=== PATIENT | male | born 1930 | race Caucasian/White ===

== ENCOUNTER 2016-09-19 23:40 | Inpatient (IN) | payer MEDICARE ==
[~2016-09-19] VITALS: Ht 182.9 cm; Wt 75.0 kg
[~2016-09-19 23:40] MED LIST: ALPR.25 PO; COLA100C3 PO; IMUR50TA PO; LUPR45IN IM; MEST60TA PO; vitamin b12 IM
[2016-09-19 23:45] VITALS: BP 171/78; PULSE 70; RESP 15; TEMP 98; O2SAT 96
[2016-09-20] VITALS (8 sets, daily range): BP systolic 107–169; BP diastolic 58–78; PULSE 62–95; RESP 15–20; TEMP 98.7; O2SAT 95–98
[2016-09-20] MEDS ORDERED: SODIUM CHLOR 0.9% 1000 ML INJ 1,000 ML IV SCH (00:09)
[2016-09-20] MEDS ORDERED: SODIUM CHLORIDE 0.9% FLUSH 5 ML FLUSH IVF PRN ×2 (00:15→11:45)
--- NOTE | 2016-09-20 00:18 | PD ---
HPI Chief Complaint: Neuro Symptoms/ Deficits Time Seen by Provider: 00:09 Travel History International Travel<30 days: No Contact w/Intl Traveler<30days: No Traveled to known affect area: No History of Present Illness HPI 85-year-old male history of myasthenia gravis arrives to the ER with 2 days of difficulty swallowing. He states this is typical for a myasthenia gravis type exacerbation. He reports strict compliance of all medications. He has had no recent illness. He reports undergoing plasmapheresis once within the last 12 months in twice within the year prior. Typically he states that effectively manages his disease. Complains of a right groin hernia which is chronic in nature. He offers no additional complaint. He follows with Dr. Doherty and Dr. Loyola. [facility] Past Medical History Anemia: Yes Arthritis: Yes Asthma: No Autoimmune Disease: Yes (MYASTHENIA GRAVIS) Blood Disorders: No Anxiety: No Depression: No Heart Rhythm Problems: No Cancer: Yes (COLON, PROSTATE AND LIVER) Cardiovascular Problems: No High Cholesterol: Yes Chemotherapy: Yes Chest Pain: No Congestive Heart Failure: No COPD: No Diabetes: No Diminished Hearing: Yes (BILATERAL HEARING AIDS) Endocrine: No Gastrointestinal Disorders: Yes (COLON/LIVER CA) Genitourinary: Yes (PROSTATE CA) Immune Disorder: Yes (MYASTHENIA GRAVIS) Kidney Stones: Yes (1983) Musculoskeletal: No Neurologic: No Psychiatric: No Reproductive: No Respiratory: No Radiation Therapy: Yes Sleep Apnea: No Thyroid Disease: No Past Surgical History Abdominal Surgery: Yes (COLON RESECTION DUE TO COLON CAN 1987 AND 2007) Eye Surgery: Yes (L EYE SURGERY on retina) Pacemaker: No Thoracic Surgery: Yes (LIVER RESECTION 2000) Tonsillectomy: Yes Other Surgery: Yes (HERNIA REPAIR JUN 2001) Social History Alcohol Use: No Tobacco Use: No Substance Use: No Allergies-Medications (Allergen,Severity, Reaction): Coded Allergies: Sulfa (Verified Allergy, Severe, Flushing, 09/20/16) Ativan (Verified Allergy, Intermediate, Psychosis, 09/20/16) Compazine (Verified Allergy, Unknown, JITTERY, 09/20/16) Reported Meds & Prescriptions Reported Meds & Active Scripts Active Xanax (Alprazolam) 0.25 Mg Tab 0.25 Mg PO DAILY PRN Reported Lupron Depot Inj Kit (Leuprolide (6 Month) Inj Kit) 45 Mg Kit 45 Mg IM DIRECTED [vitamin b12] 1,000 Mg IM DIRECTED Colace (Docusate Sodium) 100 Mg Cap 100 Mg PO BID Imuran (Azathioprine) 50 Mg Tab 25 Mg PO BID Hazardous agent: use appropriate precautions for handling and disposal. Mestinon (Pyridostigmine [place]) 60 Mg Tab 120 Mg PO TID Review of Systems Except as stated in HPI: all other systems reviewed are Neg Physical Exam Narrative GENERAL: 85-year-old male pleasant well-nourished developed SKIN: Warm and dry. HEAD: Atraumatic. Normocephalic. EYES: Pupils equal and round. No scleral icterus. No injection or drainage. ENT: No nasal bleeding or discharge. Mucous membranes pink and moist. NECK: Trachea midline. No JVD. CARDIOVASCULAR: Regular rate and rhythm. No murmur appreciated. RESPIRATORY: No accessory muscle use. Clear to auscultation. Breath sounds equal bilaterally. GASTROINTESTINAL: Abdomen soft, non-tender, nondistended. Hepatic and splenic margins not palpable. MUSCULOSKELETAL: No obvious deformities. No clubbing. No cyanosis. No edema. NEUROLOGICAL: Cranial nerves are symmetric. Speech is mildly dysarthric however comprehensible. Motor function normal 5 over 5 all 4 extremities. PSYCHIATRIC: Appropriate mood and affect; insight and judgment normal. Data Data Last Documented VS Vital Signs Date Time Temp Pulse Resp B/P Pulse Ox O2 Delivery O2 Flow Rate FiO2 09/20/16 00:53 62 16 137/66 95 Nasal Cannula 09/19/16 23:45 98.0 Orders Basic Metabolic Panel (Bmp) (09/20/16 00:09) Complete Blood Count With Diff (09/20/16 00:09) Urinalysis - C+S If Indicated (09/20/16 00:09) Iv Access Insert/Monitor (09/20/16 00:09) Ecg Monitoring (09/20/16 00:09) Oximetry (09/20/16 00:09) Sodium Chlor 0.9% 1000 Ml Inj (Ns 1000 M (09/20/16 00:09) Sodium Chloride 0.9% Flush (Ns Flush) (09/20/16 00:15) Admit Order (Ed Use Only) (09/20/16 01:22) Labs Laboratory Tests Test 09/20/16 00:00 White Blood Count 3.3 TH/MM3 Red Blood Count 3.93 MIL/MM3 Hemoglobin 11.1 GM/DL Hematocrit 33.4 % Mean Corpuscular Volume 85.0 FL Mean Corpuscular Hemoglobin 28.2 PG Mean Corpuscular Hemoglobin 33.2 % Concent Red Cell Distribution Width 15.7 % Platelet Count 131 TH/MM3 Mean Platelet Volume 8.4 FL Neutrophils (%) (Auto) 71.9 % Lymphocytes (%) (Auto) 12.3 % Monocytes (%) (Auto) 12.8 % Eosinophils (%) (Auto) 2.2 % Basophils (%) (Auto) 0.8 % Neutrophils # (Auto) 2.4 TH/MM3 Lymphocytes # (Auto) 0.4 TH/MM3 Monocytes # (Auto) 0.4 TH/MM3 Eosinophils # (Auto) 0.1 TH/MM3 Basophils # (Auto) 0.0 TH/MM3 CBC Comment DIFF FINAL Differential Comment Sodium Level 141 MEQ/L Potassium Level 3.8 MEQ/L Chloride Level 107 MEQ/L Carbon Dioxide Level 28.5 MEQ/L Anion Gap 6 MEQ/L Blood Urea Nitrogen 18 MG/DL Creatinine 1.07 MG/DL Estimat Glomerular Filtration 66 ML/MIN Rate Random Glucose 121 MG/DL Calcium Level 8.9 MG/DL MDM Medical Decision Making Medical Screen Exam Complete: Yes Emergency Medical Condition: Yes Medical Record Reviewed: Yes Differential Diagnosis Myasthenia gravis crisis, electrolyte imbalance, anemia Narrative Course CBC & BMP Diagram 09/20/16 00:00 Upon reassessment prior to admission the patient notes he had dental work done 2 weeks ago. He first noticed some difficulty with speech following the dental work then developed gradually increasing difficulty swallowing since. The patient will be admitted for management of myasthenia gravis. Case discussed with Dr. Walters. Airway protected. Vital signs normal. Diagnosis Primary Impression: Myasthenia gravis with exacerbation Admitting Information Admitting Physician Requests: Admit Ponce Young MD Sep 20, 2016 00:18
[2016-09-20 00:34] LABS: AUTOMATED NEUTROPHIL # 2.4 TH/MM3 (1.8-7.7); BASOPHIL % 0.8 % (0.0-2.0); EOSINOPHIL # 0.1 TH/MM3 (0-0.4); EOSINOPHIL % 2.2 % (0.0-4.0); HEMATOCRIT 33.4 % (39.0-51.0); HEMO FLAGS DIFF FINAL; LYMPH % 12.3 % (9.0-44.0); LYMPHOCYTE # 0.4 TH/MM3 (1.0-4.8); MEAN CORPUSCULAR HEMOGLOBIN 28.2 PG (27.0-34.0); MEAN CORPUSCULAR HGB CONC 33.2 % (32.0-36.0); MONO % 12.8 % (0.0-8.0); NEUT % 71.9 % (16.0-70.0); PLATELET COUNT 131 TH/MM3 (150-450); RED BLOOD COUNT 3.93 MIL/MM3 (4.50-5.90); RED CELL DISTRIBUTION WIDTH 15.7 % (11.6-17.2); WHITE BLOOD COUNT 3.3 TH/MM3 (4.0-11.0)
[2016-09-20 00:58] LABS: ANION GAP 6 MEQ/L (5-15); BICARBONATE 28.5 MEQ/L (21.0-32.0); BLOOD UREA NITROGEN 18 MG/DL (7-18); CHLORIDE 107 MEQ/L (98-107); GLOMERULAR FILTRATION RATE 66 ML/MIN (>89); POTASSIUM 3.8 MEQ/L (3.5-5.1); SODIUM (NA) 141 MEQ/L (136-145)
--- NOTE | 2016-09-20 02:05 | HHI.HP ---
[facility] Service Family Medicine Primary Care Physician Chris Doherty MD Admission Diagnosis Myasthenia Gravis Exacerbation Diagnoses: International Travel<30 Days: No Contact w/Intl Traveler<30days: No Known Affected Area: No History of Present Illness Mr. Peters is an 85 y/o M with a PMHx of myasthenia gravis, metastatic colon cancer, and metastatic prostate cancer presenting to the ED with swallowing difficulties. The patient states that approximately 2 weeks ago he had dental work performed on his upper teeth. Since that time he has had increasing difficulty when trying to speak. On Tuesday, he started to have difficulty swallowing his food and liquids. He then contacted his neurologist, Dr. Loyola , who recommended him go to the ER for further evaluation. The patient declined as he felt that he was "not that bad." However, over the weekend he started having more issues when trying to swallow and talk to the point where he would salivate on himself. He states that he has had similar episodes like this before where plasmapheresis resolved his clinical issues. He most recently under went plasmapheresis approximately 10 months ago (November 2015). His only other complaint is a mild, nonproductive cough he states that has been his baseline since being diagnosed with myasthenia gravis. Otherwise he has no complaints and denies any fevers, chill, SOB, chest pain, NVD, or calf tenderness. His PCP is Dr. Doherty of the [facility]. (Fabricio Siegel MD R1) Review of Systems Constitutional: DENIES: Fever Endocrine: DENIES: Polyuria Eyes: DENIES: Blurred vision, Double Vision Ears, nose, mouth, throat: DENIES: Vertigo Respiratory: COMPLAINS OF: Cough (Mild, nonproductive cough at his baseline), DENIES: Shortness of breath Cardiovascular: DENIES: Chest pain Gastrointestinal: DENIES: Abdominal pain, Diarrhea, Nausea, Vomiting Genitourinary: DENIES: Dysuria Musculoskeletal: DENIES: Muscle aches Integumentary: DENIES: Rash Hematologic/lymphatic: DENIES: Lymphadenopathy Immunologic/allergic: DENIES: Urticaria Neurologic: DENIES: Headache Psychiatric: DENIES: Mood changes (Fabricio Siegel MD R1) Past Family Social History Past Medical History Myasthenia Gravis metastatic colon cancer - (initial partial colectomy 1987 with met to liver 2000 with subsequent surgical resection), second primary colon cancer found 2007 and resected BPH - now s/p TURP Incisional hernia Hyperlipidemia 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 Garcia Neurology: Dr. Thompson (Fabricio Siegel MD R1) Physical Exam Vital Signs Vital Signs Date Time Temp Pulse Resp B/P Pulse Ox O2 Delivery O2 Flow Rate FiO2 09/20/16 00:53 62 16 137/66 95 Nasal Cannula 09/19/16 23:45 75 15 96 Room Air 09/19/16 23:45 15 96 Room Air 09/19/16 23:45 98.0 70 15 171/78 96 Physical Exam GEN: Well nourished 85 y/o M lying in bed in no acute distress HEENT: Atraumatic, normocephalic. Conjunctiva WNL without injection or icterus.PERRLA with EOMI. Oropharynx clear with no exudate or erythema.Poor mcc with multiple missing teeth. MMM. Mild saliva pooling in posterior oropharynx. No rhinorrhea. BL hearing aids in place. LUNGS: CTAB with no CRW. No increased WOB. CARDIO: RR with 1-2/6 late systolic murmur at apex. ABD: Soft, non-tender, non-distended with +BS in all 4 quarters. Multiple healed surgical scars from prior ABD surgeries. Moderate R ventral hernia. HEME/LYMPH: No ecchymosis, petechia or significant adenopathy appreciated. MUSC: Moves all extremities without difficulty. No calf pain or swelling. 2+ pulses in all 4 extremities. NEURO: AAO x3. CN II-XII intact. No ocular weakness or ptosis apparent. Speech is slowed and dysarthric, but comprehendible. Strength 4+/5 with ROM WNL. Extremities neurovascularly intact. Laboratory Laboratory Tests Test 09/20/16 00:00 White Blood Count 3.3 Red Blood Count 3.93 Hemoglobin 11.1 Hematocrit 33.4 Mean Corpuscular Volume 85.0 Mean Corpuscular Hemoglobin 28.2 Mean Corpuscular Hemoglobin 33.2 Concent Red Cell Distribution Width 15.7 Platelet Count 131 Mean Platelet Volume 8.4 Neutrophils (%) (Auto) 71.9 Lymphocytes (%) (Auto) 12.3 Monocytes (%) (Auto) 12.8 Eosinophils (%) (Auto) 2.2 Basophils (%) (Auto) 0.8 Neutrophils # (Auto) 2.4 Lymphocytes # (Auto) 0.4 Monocytes # (Auto) 0.4 Eosinophils # (Auto) 0.1 Basophils # (Auto) 0.0 CBC Comment DIFF FINAL Differential Comment Sodium Level 141 Potassium Level 3.8 Chloride Level 107 Carbon Dioxide Level 28.5 Anion Gap 6 Blood Urea Nitrogen 18 Creatinine 1.07 Estimat Glomerular Filtration 66 Rate Random Glucose 121 Calcium Level 8.9 (Fabricio Siegel MD R1) Result Diagram: 09/20/16 0000 09/20/16 0000 Assessment and Plan Assessment and Plan Mr. Peters is an 85 y/o M with a PMHx of myasthenia gravis, metastatic colon cancer, and metastatic prostate cancer presenting with dysarthria and dysphagia secondary to his MG. Code Status FULL Discussed Condition With Dr. Young, ER Physician Dr. Walters (Fabricio Siegel MD R1) Attending Attestation PATIENT WAS SEEN AND EXAMINED. HIS HISTORY OF MYATHENIA GRAVIS DATES BACK APPROXIMATELY 2 YEARS. HE HAS EXPERIENCED EXACERBATIONS IN THE PAST WHCIH HAVE RESPONDED TO PLASMA PHORESIS. PATIENT DATES THE ONSET OF WORSENING WITH THIS EPISODE TO A PROTRACTED DENTAL PROCEDURE UNDER LOCAL ANESTHESIA. HE ALSO HAS A H/O RECURRENT EPISODES OF PARTIAL SMALL BOWEL OBSTRUCTIONS; CURRENTLY NO SIGNIFICANT GI SYMPTOMS ARE PRESENT. THIS CASE WAS DISCUSSED WITH THE RESIDENT PHYSICIANS. I HAVE REVIEWED THE RECORD AND AGREE WITH THE ABOVE NOTE AND PLAN OF CARE WAS DISCUSSED. I HAVE AUTHORIZED THE ORDER FOR ADMISSION TO AN IN- PATIENT STATUS. (Chris Doherty MD) Problem List: (1) Myasthenia gravis with acute exacerbation Status: Acute Plan: Patient with myasthenia gravis presenting with an acute exacerbation with presenting symptoms of dysarthria of 2 weeks and dysphagia of 3 days. Current regimen includes pyridostigmine and azathioprine. Chest x-ray for possible aspiration: No acute disease or change has occurred. CBC: WBC 3.3, H/H 11.1/33.4, platelets 131 (myelosuppression likely related to azathioprine use) BMP: Unremarkable UA: Unremarkable Continue pyridostigmine 120 mg by mouth 3 times a day Continue azathioprine 50 mg twice a day Consult neurology (Patient known to Dr. Loyola) PT/OT/ST consult; patient to be NPO until swallow evaluation by speech therapy Case management consult Nursing order to complete neurochecks every 4 hours with oropharyngeal suction as needed (2) Dysphagia Status: Acute Plan: Patient presenting with dysphagia due to acute exacerbation of myasthenia gravis NPO until swallow evaluation by speech therapy; will then place patient on heart healthy diet Please see plan as above (3) Dysarthria Status: Acute Plan: Patient presenting with dysarthria due to acute exacerbation of myasthenia gravis Please see plan as above (4) Constipation Status: Acute Plan: Patient with history of constipation and multiple small bowel obstructions. History of multiple GI surgeries. Continue Colace 100 mg by mouth twice a day Milk of magnesium 30 mL twice a day when necessary for constipation Folate and B12 pending (malabsorption secondary to prior colectomies - currently on monthly B12 shots) (5) Hernia, incisional Status: Chronic Plan: Patient with chronic incisional hernia to the right abdominal wall. Prior CT showing fat and bowel and reducible hernia. Continue to monitor, consider referral for possible repair if clinically indicated as an outpatient (6) Anxiety Status: Chronic Plan: Patient with history of anxiety Hold Xanax Continue to monitor (7) Nutrition, metabolism, and development symptoms Status: Acute Plan: Diet: NPO until swallow evaluation by speech therapy; will then place patient on heart healthy diet Fluids: NS at 60 ml/hr (1/2 MF) due to NPO status Electrolytes: Unremarkable, monitor with daily lab DVT prophylaxis: Heparin 5000 units twice a day, [place]/SCDs (Fabricio Siegel MD R1) Physician Certification 2 Midnight Certification Type: Admission for Inpatient Services Order for Inpatient Services The services are ordered in accordance with Medicare regulations or non- Medicare payer requirements, as applicable. In the case of services not specified as inpatient-only, they are appropriately provided as inpatient services in accordance with the 2-midnight benchmark. Estimated LOS (days): 3 3 days is the estimated time the patient will need to remain in the hospital, assuming treatment plan goals are met and no additional complications. Post-Hospital Plan: Home (Fabricio Siegel MD R1) Fabricio Siegel MD R1 Sep 20, 2016 02:05 Chris Doherty MD Sep 21, 2016 06:23
[2016-09-20] MEDS ORDERED: VITAMIN B12 1000 MG IM SCH (02:15)
[2016-09-20 02:45] LABS: BLOOD, URINE NEG (NEG); COMMENT (UR) CULT NOT INDICATED; CULTURE IF INDICATED CULT NOT INDICATED; GLUCOSE,URINE NEG (NEG); KETONE, URINE 10 mg/dL (NEG); MUCUS URINE FEW /lpf (OCC); NITRITE,URINE NEG (NEG); PH, URINE 6.5 (5.0-8.5); RENAL EPITHELIAL CELLS <1 /hpf; URINE COLOR YELLOW (YELLW/STRAW)
[2016-09-20] MEDS ORDERED: MAGNESIUM HYDROXIDE SUSP 30 ML CUP PO PRN (02:45)
[2016-09-20] MEDS ORDERED: NALOXONE HCL 0.4 MG/ML AMP IV PRN (02:45)
[2016-09-20] MEDS ORDERED: SODIUM CHLORIDE 0.9% FLUSH 5 ML FLUSH FLUSH PRN (02:45)
[2016-09-20] MEDS: HEPARIN SODIUM - SQ 10,000 UNITS/ML VIAL SQ SCH ×2 (03:38→15:20)
--- NOTE | 2016-09-20 04:31 | RADRPT ---
EXAM DATE/TIME: 09/20/2016 03:04 [facility] COMPARISON: CHEST SINGLE AP, January 13, 2015, 13:00. INDICATIONS : Shortness of breath. MEDICAL HISTORY : Carcinoma, colon. Carcinoma, prostatic. Liver cancer SURGICAL HISTORY : Colon resection. Hernia repair ENCOUNTER: Initial ACUITY: 1 day PAIN SCORE: 0/10 LOCATION: Bilateral chest FINDINGS: A single view of the chest demonstrates the lungs to be symmetrically aerated without evidence of mas s, infiltrate or effusion. The cardiomediastinal contours are unremarkable. Osseous structures are intact. CONCLUSION: No acute disease. No significant change has occurred. Reece Peters MD on September 20, 2016 at 4:30 Board Certified Radiologist. This report was verified electronically.
[2016-09-20] MEDS: SODIUM CHLOR 0.9% 1000 ML INJ 1,000 ML IV SCH ×2 (04:45→22:52)
[2016-09-20] MEDS ORDERED: PYRIDOSTIGMINE BROMIDE 60 MG TAB PO SCH (09:00)
--- NOTE | 2016-09-20 10:26 | MB ---
cc: MICHELLE HASSAN DATE OF CONSULTATION: 09/20/2016 HISTORY OF PRESENT ILLNESS A 85-year-old man with a history of myasthenia gravis, first seen in July 2014 with difficulty swallowing, he is antibody positive for myasthenia gravis, put on Mestinon and it seemed to help quite a bit, went home and then re-admitted on 10/11/2014, known history of colon cancer in 1999 and 2007 with mets to the liver, they had taken half his liver out. He came back June of 2014, he had difficulty swallowing, seemed to get worse and over a week prior to September 2014 it got worse even though he was on Mestinon two pills three times a day, a little bit of cough, he was put on steroids, two days prior, received plasma exchange. He felt better after the plasma exchange, continued to have great improvement, voice was quite strong. He did not get his fifth plasma exchange. He went home on Mestinon, 60 of prednisone but over the past 2 weeks his speech and swallowing had slowly gotten worse despite being on the medication. He subsequently came into the ER, had plasma exchange again. I have maintained him on Mestinon at home and he had been doing well but still has some low grade difficulty swallowing and speech sometimes not great but he has been living with it and getting along fine and then he had some work done on his teeth about a week ago and since that time his swallowing has gotten a bit worse and then he was having some difficulty handling secretions and came in. PAST MEDICAL HISTORY 1. The above cancers. 2. History of prostate cancer with 2012 mets to the T-spine. 3. Question of impaired fasting glucose in the past. REVIEW OF SYSTEMS No hypertension, diabetes, CO, CABG, cardiac arrhythmia, renal, pulmonary, thyroid, lupus, ulcer, seizure or stroke. SOCIAL HISTORY Nonsmoker, nondrinker, lives with his at [facility]. ALLERGIES COMPAZINE, ATIVAN, SULFA. MEDICATION 1. Xanax 0.25 p.r.n. 2. Lupron injection. 3. B12 injection. 4. Colace. 5. Imuran 25 mg b.i.d. 6. Mestinon 120 t.i.d. PHYSICAL EXAMINATION VITAL SIGNS: Afebrile, 62, 15, 169/76 to 117/75. NECK: There were no carotid bruits. HEART: Heart was regular rhythm. I do not detect a murmur. LUNGS: Lungs were clear. NEURO EXAM: Pupils are equal. Visual renner are full. Extraocular movements intact without nystagmus. Face moves symmetrically but he has some weakness on eye closure and buccal muscles. Tongue was midline. There is no drift. He had normal strength in upper and lower extremities bilaterally including repetitive testing. DTRs are trace throughout. Toes are downgoing bilaterally. Pinprick is intact throughout. Speech is a little bit hoarse, slightly thick, not out of the realm for his normal. LABORATORY DATA His white count is 3.3, hematocrit 11, platelet count 131. RPR is negative. His last in June 2016, voltage-gated calcium channel antibody was negative. His anti__ muscle titer was 1:40. His acetylcholine receptor binding antibody was 25 which is as high as it has been since being checked and it was around anywhere from 2-13 in the past. RPR has been negative. UA on this admission is negative. Basic metabolic profile is normal. B12 is normal. Folate is normal. Sed rate in the past has been normal. IMAGING STUDIES Chest x-ray on this admission is normal. Abdominal CT done in July of last year had a small bowel obstruction, partial, small right pleural effusion. He had a chest CT in 2013 and negative for a thymoma and a CAT scan of his brain back then also showed some white matter changes bilaterally. IMPRESSION Worsening of his myasthenia since his recent dental surgery but he has never done all that great with his current medication regimen. I have had to limit his Imuran due to dropping white count in the past. What I have recommended is to restart his plasma exchange and restart him on some steroids and see how he does on that. The last time we tried him on some oral steroids, we thought he got a little bit worse initially, so we backed off on it. So after his first plasma exchange and if he starts to feel better, we will start the steroids then. MD DONNA Morrow/SAMI /7:57 AM /9:47 AM
[2016-09-20] MEDS: azaTHIOprine 50 MG TAB PO SCH ×2 (11:44→22:53)
[2016-09-20] MEDS: DOCUSATE SODIUM 100 MG CAP PO SCH ×2 (11:44→21:00)
[2016-09-20] MEDS: SODIUM CHLORIDE 0.9% FLUSH 5 ML FLUSH FLUSH SCH ×2 (11:45→22:54)
[2016-09-20] MEDS ORDERED: HEPARIN SODIUM - IV 10,000 UNITS/10 ML VIAL IVF PRN (11:45)
--- NOTE | 2016-09-20 11:45 | PD.RAD ---
Post Procedure Progress Note Pre Procedure Diagnosis: (1) Myasthenia gravis with exacerbation Post Procedure Diagnosis: (1) Myasthenia gravis with exacerbation Procedure Date: Sep 20, 2016 Supervising Radiologist: Agustin Guajardo JR Proceduralist/Assist: Qian Fernández, RT(R)(CV), Xiao Oliveira RT(R) Anesthesia: Local Plan of Activity Patient to Unit: Nursing Unit Patient Condition: Good See PACS Report for procedural detail/treatment Central Venous Access Device Procedure 1 Right Internal Jugular Hemodialysis Catheter Non-Tunneled Placement dual lumen Mongolian: 15 Findings: Catheter in good position and functions well. OK to use. Jr. Bennett,Agustin See MD Sep 20, 2016 11:45
--- NOTE | 2016-09-20 12:43 | RADRPT ---
EXAM DATE/TIME: 09/20/2016 10:48 [facility] COMPARISON: No previous studies available for comparison. INDICATIONS : History of Myasthenia gravis. Need for vascular access for plasmapheresis. MEDICAL HISTORY : 1. Myasthenia gravis 2. metastatic colon ca 3. BPH 4. Hyperlipidemia 5.Prostate cancer SURGICAL HISTORY : 1. Partial colectomy 2. Partail liver resection 3. TURP 4. Retinal surgery 5. carpal tunnel x2 ENCOUNTER: Initial ACUITY: 2 weeks PAIN SCORE: FLUORO TIME: 0.4 minutes ACCESS: Right internal jugular vein DEVICE(S): 1.) 14 Spanish dual lumen 15 cm Schon catheter PROCEDURE : 1. Ultrasound guided venipuncture. 2. Fluoroscopic guidance. 3. Central line placement. The risks, benefits and alternatives to the procedure were explained and verbal and written consent w as obtained. The site was prepped in sterile fashion. Full sterile technique was used, including ca p, mask, sterile gloves and gown and a large sterile sheet. Hand hygiene and 2% chlorhexidine prep w as utilized per protocol for cutaneous antisepsis with appropriate dry time for site. The skin and subcutaneous tissues were infiltrated with local anesthetic solution. A suitable site a marvel the vein was selected with ultrasound and fluoroscopic guidance. A small incision was made. Th e vein was accessed under direct ultrasound visualization using the micropuncture technique. The sin ropuncture set was exchanged for a 0.035 wire. The tract was dilated. The catheter was advanced int o position under direct fluoroscopic visualization. The catheter was fixed in place with suture and a sterile dressing was applied. The patient tolerated the procedure well and there were no complications. CONCLUSION: Uncomplicated line placement as above. Catheter functions well and is ready for use. Agustin Guajardo Jr., MD on September 20, 2016 at 12:41 Board Certified Radiologist. This report was verified electronically.
[2016-09-20 12:53] LABS: AUTOMATED NEUTROPHIL # 1.9 TH/MM3 (1.8-7.7); EOSINOPHIL # 0.1 TH/MM3 (0-0.4); EOSINOPHIL % 2.1 % (0.0-4.0); HEMATOCRIT 37.6 % (39.0-51.0); HEMO FLAGS DIFF FINAL; LYMPH % 10.5 % (9.0-44.0); LYMPHOCYTE # 0.3 TH/MM3 (1.0-4.8); MEAN CELL VOLUME 86.1 FL (80.0-100.0); MEAN CORPUSCULAR HEMOGLOBIN 27.2 PG (27.0-34.0); MEAN CORPUSCULAR HGB CONC 31.5 % (32.0-36.0); MONO % 11.8 % (0.0-8.0); NEUT % 74.6 % (16.0-70.0); PLATELET COUNT 125 TH/MM3 (150-450); RED BLOOD COUNT 4.37 MIL/MM3 (4.50-5.90); RED CELL DISTRIBUTION WIDTH 15.6 % (11.6-17.2); WHITE BLOOD COUNT 2.5 TH/MM3 (4.0-11.0)
[2016-09-20 13:08] LABS: BICARBONATE 28.8 MEQ/L (21.0-32.0); POTASSIUM 3.9 MEQ/L (3.5-5.1)
[2016-09-20 13:12] LABS: ALT (GPT) 19 U/L (12-78); AST (GOT) 18 U/L (15-37); CREATINE KINASE 112 U/L (39-308)
--- NOTE | 2016-09-20 17:07 | EKG ---
Date Performed: 09/19/2016 Time Performed: 23:57:22 PTAGE: 85 years EKG: Sinus rhythm WITH OCCASIONAL VENTRICULAR PREMATURE COMPLEXES RIGHT BUNDLE BRANCH BLOCK POSSIBLE SEPTAL MYOCARDIAL INFARCTION Compared to prior tracing no significant change ABNORMAL ECG PREVIOUS TRACING 12/15/15 @ 23.55.18 DOCTOR: Brennan August Interpretating Date/Time 09/20/2016 17:05:03
[2016-09-20] MEDS: PYRIDOSTIGMINE BROMIDE 60 MG TAB PO SCH (18:31)
[2016-09-21] VITALS (11 sets, daily range): BP systolic 152–188; BP diastolic 67–80; PULSE 59–66; RESP 16–20; TEMP 96–97.8; O2SAT 96–98
[2016-09-21] MEDS ORDERED: ALBUMIN HUMAN 5% 25 GM/500 ML BOTTLE IV ONE ×2 (02:30→15:00)
[2016-09-21] MEDS: HEPARIN SODIUM - SQ 10,000 UNITS/ML VIAL SQ SCH (02:45)
[2016-09-21] MEDS ORDERED: CALCIUM GLUCONATE INJ 4 GM in SODIUM CHLOR 0.9% 250 ML INJ 200 ML IV ONE (03:00)
--- NOTE | 2016-09-21 07:45 | HHI.PR ---
Subjective Remarks inc swallow problems Objective Vital Signs Date Time Temp Pulse Resp B/P Pulse Ox O2 Delivery O2 Flow Rate FiO2 09/21/16 04:00 97.6 59 18 158/79 96 09/21/16 02:00 60 09/21/16 00:00 97.8 62 16 152/68 97 09/20/16 20:00 Room Air 09/20/16 20:00 98.7 82 18 107/58 95 09/20/16 18:17 76 20 167/78 09/20/16 13:35 97 21 09/20/16 12:20 75 20 162/69 I/O 09/20/16 09/20/16 09/20/16 09/21/16 09/21/16 09/21/16 07:00 15:00 23:00 07:00 15:00 23:00 Intake Total 437 ml Output Total 100 ml 200 ml Balance -100 ml 237 ml Intake IV Total 437 ml Output Urine Total 100 ml 200 ml Result Diagram: 09/20/16 1215 09/20/16 1215 Objective Remarks voice thicker and eye closure weaker jeff r eye buccal same delt nl as is neck flexors nl Assessment and Plan Assessment and Plan imp mg needs pex today line in watch bulbar fxt no sob and not sx below neck today but a little worse change diet have swallow reeval this am Mickey Loyola MD Sep 21, 2016 07:45
[2016-09-21 08:28] LABS: AUTOMATED NEUTROPHIL # 1.8 TH/MM3 (1.8-7.7); BASOPHIL % 0.7 % (0.0-2.0); EOSINOPHIL # 0.1 TH/MM3 (0-0.4); HEMATOCRIT 35.6 % (39.0-51.0); HEMO FLAGS DIFF FINAL; LYMPH % 10.5 % (9.0-44.0); LYMPHOCYTE # 0.3 TH/MM3 (1.0-4.8); MEAN CELL VOLUME 84.3 FL (80.0-100.0); MEAN CORPUSCULAR HEMOGLOBIN 27.2 PG (27.0-34.0); MEAN CORPUSCULAR HGB CONC 32.2 % (32.0-36.0); MONO % 14.1 % (0.0-8.0); NEUT % 71.7 % (16.0-70.0); PLATELET COUNT 108 TH/MM3 (150-450); RED BLOOD COUNT 4.23 MIL/MM3 (4.50-5.90); RED CELL DISTRIBUTION WIDTH 15.6 % (11.6-17.2); WHITE BLOOD COUNT 2.5 TH/MM3 (4.0-11.0)
[2016-09-21] MEDS: azaTHIOprine 50 MG TAB PO SCH ×2 (08:52→21:09)
[2016-09-21] MEDS: PYRIDOSTIGMINE BROMIDE 60 MG TAB PO SCH ×3 (08:52→17:41)
[2016-09-21] MEDS: SODIUM CHLORIDE 0.9% FLUSH 5 ML FLUSH FLUSH SCH ×2 (08:53→21:08)
[2016-09-21] MEDS: DOCUSATE SODIUM 100 MG CAP PO SCH ×2 (08:53→21:08)
[2016-09-21 09:01] LABS: ALKALINE PHOSPHATASE 75 U/L (45-117); ALT (GPT) 18 U/L (12-78); ANION GAP 6 MEQ/L (5-15); AST (GOT) 18 U/L (15-37); BICARBONATE 29.9 MEQ/L (21.0-32.0); BLOOD UREA NITROGEN 15 MG/DL (7-18); CHLORIDE 106 MEQ/L (98-107); GLOMERULAR FILTRATION RATE 77 ML/MIN (>89); POTASSIUM 3.8 MEQ/L (3.5-5.1); SODIUM (NA) 142 MEQ/L (136-145); TOTAL BILIRUBIN ADULT 1.6 MG/DL (0.2-1.0)
--- NOTE | 2016-09-21 09:41 | MB ---
cc: RACHEL WU M.D. DATE OF CONSULTATION 09/20/2016 REASON FOR CONSULTATION Consult requested by Dr. Loyola for plasmapheresis in a patient who is admitted with exacerbation of myasthenia gravis. HISTORY OF PRESENT ILLNESS Naren is a pleasant 85-year-old male. He is well-known to me. He has a history of prostate cancer, colon cancer and myasthenia gravis. The patient had a fall two years ago and had injury to his teeth. He recently went to see a dentist to fix his teeth. Subsequently the patient was found to have trouble speaking. He saw Dr. Carpenter, his neurologist. His myasthenia gravis medications were adjusted but it did not improve. Subsequently the patient had developed difficulty swallowing and the patient now has been admitted to the hospital. The patient previously had responded to the plasmapheresis for his myasthenia gravis. Dr. Loyola is requesting for the plasma exchange again. The patient had a Vascath placed in by interventional radiologist. The patient clearly has trouble swallowing and he has difficulty in his speech. He does not have any weakness of his lower legs. PAST MEDICAL HISTORY 1. Myasthenia gravis diagnosed in to 2013. 2. Prostate cancer diagnosed in June 2011 and he now on intermittent hormonal treatment. 3. He also has a history of colon cancer which dates back to 1987. 4. Anxiety disorder. 5. Arthritis. 6. Hypercholesterolemia. 7. Kidney stones. PAST SURGICAL HISTORY 1. Carpal tunnel surgery. 2. Cataract. 3. Colon resection. 4. Skin cancer excision. 5. Colonoscopy. 6. Liver resection 7. Incisional hernia repair. 8. Inguinal hernia repair ALLERGIES COMPAZINE. SULFA. MEDICATIONS Please see EMR. FAMILY HISTORY Noncontributory. SOCIAL HISTORY The patient does not smoke cigarettes, does not drink alcohol. PHYSICAL EXAMINATION General: This is a well-developed, well-nourished white male in no apparent distress. Vital Signs: Temperature 98.7, heart is 82, blood pressure 107/58. HEENT: PERRLA, EOMI. Anicteric. No oral lesions are noted. Neck: Supple. Lymhphatics: There is no cervical, supraclavicular or axillary lymphadenopathy noted. Lungs: Clear. No wheezing, rhonchi or rales. Heart: Regular rate and rhythm. Abdomen: Soft, nontender. No hepatosplenomegaly. EXTREMITIES: No pedal edema. NEUROLOGY: The patient is awake, alert, oriented. He has slurring of speech and difficulty swallowing. SKIN: No significant lesions noted. ASSESSMENT 1. Exacerbation of myasthenia gravis. 2. Prostate cancer on intermittent hormonal treatment. 3. History of colon cancer status post surgery and chemotherapy with no evidence of recurrence. PLAN I have reviewed his available records and I have discussed with the patient regarding the plasmapheresis which he is very familiar with that. The patient has had plasmapheresis on multiple occasions for the exacerbation of myasthenia gravis and it has worked every time. His neurologist, Dr. Loyola, is recommending plasma exchange. VasCath has been placed in by interventional radiologist today. I have discussed with the patient's nurse to notify one blood bank to arrange the plasma exchange starting tomorrow. This will be done one every other day, a total of five treatments. We will monitor the CBC and coags with the plasmapheresis. The patient's CBC today showed a white count of 2.5, hemoglobin 11.9, hematocrit 37.6, platelet count is 125. His blood counts are adequate to start the plasmapheresis tomorrow. We will replace the plasma with the albumin 5%. We will do one plasma volume exchange. Further recommendations based on his hospital stay. Thank you for asking my opinion. MD BRIAN Kulkarni/MAYTE /10:11 PM /9:29 AM IBAN
--- NOTE | 2016-09-21 09:44 | PD.ONC.PN ---
Subjective Subjective Remarks Afebrile overnight. Patient resting comfortably. Earlier this AM he choked on his food and a swallow evaluation has been ordered. He is having trouble swallowing and talking. He is concerned that it may have been triggered by recent dental work he had done. Objective Data Date Time Temp Pulse Resp B/P Pulse Ox O2 Delivery O2 Flow Rate FiO2 09/21/16 09:09 152/68 09/21/16 07:10 96.0 65 18 165/76 98 09/21/16 04:00 97.6 59 18 158/79 96 09/21/16 02:00 60 09/21/16 00:00 97.8 62 16 152/68 97 09/20/16 20:00 Room Air 09/20/16 20:00 98.7 82 18 107/58 95 09/20/16 18:17 76 20 167/78 09/20/16 13:35 97 21 09/20/16 12:20 75 20 162/69 09/21/16 09/21/16 09/21/16 07:00 15:00 23:00 Intake Total 437 ml Output Total 200 ml 100 ml Balance 237 ml -100 ml Result Diagram: 09/21/16 0738 09/21/1638 Laboratory Results Laboratory Tests Test 09/20/16 09/21/16 12:15 07:38 White Blood Count 2.5 TH/MM3 2.5 TH/MM3 Red Blood Count 4.37 MIL/MM3 4.23 MIL/MM3 Hemoglobin 11.9 GM/DL 11.5 GM/DL Hematocrit 37.6 % 35.6 % Mean Corpuscular Volume 86.1 FL 84.3 FL Mean Corpuscular Hemoglobin 27.2 PG 27.2 PG Mean Corpuscular Hemoglobin 31.5 % 32.2 % Concent Red Cell Distribution Width 15.6 % 15.6 % Platelet Count 125 TH/MM3 108 TH/MM3 Mean Platelet Volume 8.2 FL 8.4 FL Neutrophils (%) (Auto) 74.6 % 71.7 % Lymphocytes (%) (Auto) 10.5 % 10.5 % Monocytes (%) (Auto) 11.8 % 14.1 % Eosinophils (%) (Auto) 2.1 % 3.0 % Basophils (%) (Auto) 1.0 % 0.7 % Neutrophils # (Auto) 1.9 TH/MM3 1.8 TH/MM3 Lymphocytes # (Auto) 0.3 TH/MM3 0.3 TH/MM3 Monocytes # (Auto) 0.3 TH/MM3 0.4 TH/MM3 Eosinophils # (Auto) 0.1 TH/MM3 0.1 TH/MM3 Basophils # (Auto) 0.0 TH/MM3 0.0 TH/MM3 CBC Comment DIFF FINAL DIFF FINAL Differential Comment Sodium Level 142 MEQ/L 142 MEQ/L Potassium Level 3.9 MEQ/L 3.8 MEQ/L Chloride Level 104 MEQ/L 106 MEQ/L Carbon Dioxide Level 28.8 MEQ/L 29.9 MEQ/L Anion Gap 9 MEQ/L 6 MEQ/L Blood Urea Nitrogen 14 MG/DL 15 MG/DL Creatinine 0.99 MG/DL 0.93 MG/DL Estimat Glomerular Filtration 72 ML/MIN 77 ML/MIN Rate Random Glucose 114 MG/DL 103 MG/DL Calcium Level 8.9 MG/DL 8.8 MG/DL Aspartate Amino Transf 18 U/L 18 U/L (AST/SGOT) Alanine Aminotransferase 19 U/L 18 U/L (ALT/SGPT) Total Creatine Kinase 112 U/L Total Bilirubin 1.6 MG/DL Alkaline Phosphatase 75 U/L Total Protein 6.6 GM/DL Albumin 3.6 GM/DL Administered Medications Medications (Trade) Dose Ordered Sig/Brock Route PRN Reason Start Time Stop Time Status Last Admin Dose Admin Azathioprine (Imuran) 25 mg BID PO 09/20/16 09:00 09/21/16 08:52 Docusate Sodium (Colace) 100 mg BID PO 09/20/16 09:00 09/21/16 08:53 IV Flush (NS Flush) 2 ml BID FLUSH 09/20/16 09:00 09/21/16 08:53 Heparin Sodium (Porcine) 5000 units 5,000 units Q12H SQ 09/20/16 02:45 09/20/16 15:20 Sodium Chloride (NS 1000 ml Inj) 1,000 ml @ 60 mls/hr [id number] IV 09/20/16 04:45 09/20/16 22:52 Pyridostigmine [place] (Mestinon) 120 mg TID PO 09/20/16 18:00 09/21/16 08:52 Objective Remarks GENERAL: Elderly male, sitting up in bed in nad SKIN: Warm and dry. HEAD: Normocephalic. EYES: No scleral icterus. No injection or drainage. NECK: Supple, trachea midline. CARDIOVASCULAR: Regular rate and rhythm without murmurs. RESPIRATORY: Breath sounds equal bilaterally. No accessory muscle use. GASTROINTESTINAL: Abdomen soft, non-tender, nondistended. EXTREMITIES: No cyanosis, or edema. MUSCULOSKELETAL: Adequate muscle tone. NEUROLOGICAL: awake, alert and oriented. able to move extremities. garbled speech. difficulty swallowing but no drooling Assessment/Plan Problem List: (1) Myasthenia gravis with exacerbation Plan: 09/21/16: proceed with day 1 of PEX. monitor CBC, coags, calcium --heparin prophylaxis placed on hold as pex can cause coagulopathy --pex qod x 5 Assessment 85y/o male with myasthenia gravis admitted with exacerbation. Hematology consulted to coordinate plasma exchange qod x 5. Attending Statement no new c/o ist pheresis today will follow The exam, history, and the medical decision-making described in the above note were completed with the assistance of the mid-level provider. I reviewed and agree with the findings presented. I attest that I had a [id number] encounter with the patient on the same day, and personally performed and documented my assessment and findings in the medical record. Elly Grimaldo Sep 21, 2016 09:44 Gabriel Garcia MD Sep 21, 2016 22:13
--- NOTE | 2016-09-21 10:10 | HHI.FPPN ---
Subjective Remarks Overnight, SERG. Afebrile. Mildly hypertensive to 150/70. Breathing well on room air. Poor UOP per EMR- continue to monitor. No melendrez at present. C/o difficulty swallowing and copious saliva production. Continuing to use suction. Per speech, soft foods with thin liquids- however, trouble swallowing scrambled eggs earlier this morning- had trouble breathing for a moment, coughed them back up. Is afraid to eat. Denies PIERCE, blurry vision, CP, SOB. Objective Vitals Vital Signs Date Time Temp Pulse Resp B/P Pulse Ox O2 Delivery O2 Flow Rate FiO2 09/21/16 09:09 152/68 09/21/16 07:10 96.0 65 18 165/76 98 09/21/16 04:00 97.6 59 18 158/79 96 09/21/16 02:00 60 09/21/16 00:00 97.8 62 16 152/68 97 09/20/16 20:00 Room Air 09/20/16 20:00 98.7 82 18 107/58 95 09/20/16 18:17 76 20 167/78 09/20/16 13:35 97 21 09/20/16 12:20 75 20 162/69 I/O 09/20/16 09/20/16 09/20/16 09/21/16 09/21/16 09/21/16 07:00 15:00 23:00 07:00 15:00 23:00 Intake Total 437 ml Output Total 100 ml 200 ml 100 ml Balance -100 ml 237 ml -100 ml Intake IV Total 437 ml Output Urine Total 100 ml 200 ml 100 ml Result Diagram: 09/21/16 0738 09/21/16 0738 Imaging Last Impressions Chest X-Ray 09/20/16 0239 Signed Impressions: Service Date/Time: Tuesday, September 20, 2016 03:04 - CONCLUSION: No acute disease. No significant change has occurred. Reece Peters MD Catheter Placement X-Ray 09/20/16 0000 Signed Impressions: Service Date/Time: Tuesday, September 20, 2016 10:48 - CONCLUSION: Uncomplicated line placement as above. Catheter functions well and is ready for use. Agustin Guajardo Jr., MD Objective Remarks CONST: 85y male in moderate distress secondary to copious swallowing. Suctioning frequently, coughing/gagging repeatedly. HEENNT: PERRL. Saccadic eye movements. Poor intermediate with multiple missing teeth. Mild saliva pooling in oropharynx. RESP: Lungs CTAB. No wheezes. CV: RRR. No murmur appreciated (hx 1-2/6 JULIO CESAR at apex) GI: Soft NTND, +BS. R ventral hernia. MSK: Muscle tone symmetrical, appropriate NEURO: Speech slowed and dysarthric, but comprehendible. Strength 4+/5 with ROM WNL. Extremities neurovascularly intact. PSYCH: Affect appropriate. Good insight. Procedures 09/20- RIJ catheter placed 09/21- PEX 1 Urinary Catheter: No Vascular Central Line Catheter: Yes Assessment to: Continue Date of Insertion: Sep 20, 2016 Line: Central Venous Catheter Side: Right Location: Internal, Jugular Reason for Continuation Plasma exchange therapy (09/21- ) A/P Assessment and Plan 85y male with myasthenia gravis, metastatic colon cancer, and metastatic prostate cancer, hospitalized 09/19/16 for MG exacerbation with dysarthria and dysphagia Discharge Planning 1-3 days, pending Neurology recommendations regarding inpt vs outpt plasmapheresis and steroids. PT: [facility] OT: no OT needed ST: will see daily here, not needed as outpt DW: Dr. Doe, Dr. Quinonez Problem List: (1) Myasthenia gravis with acute exacerbation Status: Acute Plan: Dysarthria x2 weeks, dysphagia x3 days. Home medicines pyridostigmine and azathioprine. CBC shows myelosuppression likely secondary to azathioprine. Consulted Neurology (Follow w Dr. Loyola), Heme Onc (follows with Dr. Garcia ) S/p RIJ placed 09/20/16 by IR Imaging CXR (09/20): no acute process Plan Continue pyridostigmine 120mg PO TID Continue azathioprine 25mg PO BID Neurology consulted -Recommended plasmapheresis, possibly initiate steroids after completion with monitoring, as has had poor rxn to steroids in the past -Speech study repeat, notified of events @2pm, continue soft diet, neurochecks q2h -Heme Onc Consulted -PEX 1 today, recommend qod x5 -Heparin ppx on hold as pex can cause coagulopathy -PT/OT/ST/Case consulted PT consulted: discharge [facility] -OT: not indicated at discharge -ST: will re-assess pt today after near-aspiration and make dietary recommendations -Case management consulted Support Neurochecks q2h OOB with assistance Suction Fluids per FEN/ppx, (2) Dysphagia Status: Resolved Plan: Secondary to myasthenia gravis exacerbation Per ST, see plan for myasthenia gravis (3) Dysarthria Status: Acute Plan: Secondary to exacerbation of myasthenia gravis See plan for myasthenia gravis (4) Constipation Status: Chronic Plan: Hx constipation, multiple SBO, s/p multiple surgeries, including partial colectomy for metastatic colon cancer. Folate and B12 wnl. Continue Colace 100mg BID Milk of magnesium 30 mL BID PRN constipation (5) Hx of malignant neoplasm of prostate Status: Chronic Plan: -Hold home Leuprolide 45mg INJ every other week (6) History of colon cancer Status: Chronic Plan: - see plan for constipation (7) Anxiety Status: Chronic Plan: Home 0.25 Xanax q4h, uses sparing. Held Xanax due to concern pt may not be able to protect airway Continue to monitor (8) Hernia, incisional Status: Chronic Plan: Incision hernia to R abdominal wall. CT abd: reducible hernia with fat and bowel. Asymptomatic, no indication for surgery at present. -Continue to monitor (9) Nutrition, metabolism, and development symptoms Status: Chronic Plan: Fluids: MIVF- NS @120mL/hr due to poor UOP- continue to monitor response Electrolytes: monitor/replete as needed Diet: Soft diet at present. Per ST- will re-eval 09/21/16 after aspiration episode DVT prophylaxis: SCDs only (Hep ppx held for PEX) GI ppx: not indicated Problem Qualifiers (1) Dysphagia: Qualified Code: R13.10 - Dysphagia, unspecified type (2) Constipation: Qualified Code: K59.01 - Slow transit constipation (3) Hernia, incisional: Qualified Code: K43.2 - Incisional hernia, without obstruction or gangrene Yulissa Paul MD R1 Sep 21, 2016 10:10
[2016-09-21 11:21] LABS: APTT (PATIENT) 26.7 SEC (24.3-30.1); INTERNATIONAL NORMALIZED RATIO 1.1 RATIO; PROTHROMBIN TIME - PATIENT 11.8 SEC (9.8-11.6)
[2016-09-21] MEDS ORDERED: ANTICOAGULANT CITRATE DEXTROSE SOLN-A 1L ONE (13:45)
[2016-09-21] MEDS: SODIUM CHLOR 0.9% 1000 ML INJ 1,000 ML IV SCH ×3 (14:18→18:25)
[2016-09-21] MEDS: ALBUMIN HUMAN 5% 25 GM/500 ML BOTTLE IV SCH (15:00)
[2016-09-21] MEDS ORDERED: SODIUM CHLORIDE 0.9% 10 ML FLUSH IV FLUSH PRN (15:00)
[2016-09-21] MEDS ORDERED: HEPARIN SODIUM - 10,000 UNITS/ML 1ML VIAL IVF PRN (15:00)
[2016-09-21] MEDS: CALCIUM GLUCONATE INJ 4 GM in SODIUM CHLOR 0.9% 250 ML INJ 200 ML IV SCH (15:00)
[2016-09-21] MEDS: ANTICOAGULANT CITRATE DEXTROSE SOLN-A 1L OTHER SCH (15:00)
[2016-09-21] MEDS: SODIUM CHLOR 0.9% 1000 ML IV SCH (15:00)
[2016-09-21] MEDS ORDERED: diphenhydrAMINE HCL 50 MG/ML VIAL IV PUSH PRN (15:00)
[2016-09-21] MEDS ORDERED: cloNIDine HCL 0.1 MG TAB PO PRN (16:30)
[2016-09-22] VITALS (10 sets, daily range): BP systolic 130–196; BP diastolic 62–81; PULSE 61–76; RESP 17–20; TEMP 95.7–98.1; O2SAT 95–100
--- NOTE | 2016-09-22 07:42 | HHI.PR ---
Subjective Remarks still swallow problems Objective Vital Signs Date Time Temp Pulse Resp B/P Pulse Ox O2 Delivery O2 Flow Rate FiO2 09/22/16 04:16 97.4 76 17 154/69 96 09/22/16 00:00 97.2 61 17 162/72 95 09/21/16 20:00 96.9 63 17 160/67 97 09/21/16 18:06 63 09/21/16 17:58 155/76 09/21/16 15:30 96.3 64 20 188/80 96 09/21/16 11:50 97.2 66 20 171/75 96 09/21/16 09:09 152/68 09/21/16 08:00 59 09/21/16 08:00 Room Air I/O 09/21/16 09/21/16 09/21/16 09/22/16 09/22/16 09/22/16 07:00 15:00 23:00 07:00 15:00 23:00 Intake Total 437 ml 360 ml 1550 ml 392 ml Output Total 200 ml 100 ml 650 ml 400 ml Balance 237 ml 260 ml 900 ml -8 ml Intake Oral 360 ml 360 ml IV Total 437 ml 1190 ml 392 ml Output Urine Total 200 ml 100 ml 650 ml 400 ml # Voids 2 1 4 Result Diagram: 09/21/1638 09/21/1638 Objective Remarks voice a little better and eye closure weaker jeff r eye a little better buccal same bp up Assessment and Plan Assessment and Plan imp mg pex sp #1 a littel better watch bulbar fxt no sob and not sx below neck today change diet liquid have swallow reeval this am again and watch any coughing closely oob can hep lock while oob and ambulate needs bp control Mickey Loyola MD Sep 22, 2016 07:42
[2016-09-22] MEDS: PYRIDOSTIGMINE BROMIDE 60 MG TAB PO SCH ×3 (08:26→13:00)
[2016-09-22] MEDS: DOCUSATE SODIUM 100 MG CAP PO SCH (08:26)
[2016-09-22] MEDS: azaTHIOprine 50 MG TAB PO SCH (08:26)
[2016-09-22] MEDS: SODIUM CHLORIDE 0.9% FLUSH 5 ML FLUSH FLUSH SCH ×2 (08:26→21:00)
[2016-09-22 10:13] LABS: HEMATOCRIT 34.8 % (39.0-51.0); MEAN CELL VOLUME 84.8 FL (80.0-100.0); PLATELET COUNT 96 TH/MM3 (150-450); RED CELL DISTRIBUTION WIDTH 16.2 % (11.6-17.2); WHITE BLOOD COUNT 3.5 TH/MM3 (4.0-11.0)
[2016-09-22 10:21] LABS: REVIEW FLAG AUTO DIFF
[2016-09-22 10:26] LABS: APTT (PATIENT) 31.5 SEC (24.3-30.1); INTERNATIONAL NORMALIZED RATIO 1.2 RATIO; PROTHROMBIN TIME - PATIENT 13.4 SEC (9.8-11.6)
[2016-09-22 10:40] LABS: BICARBONATE 24.7 MEQ/L (21.0-32.0); POTASSIUM 3.7 MEQ/L (3.5-5.1)
[2016-09-22] MEDS ORDERED: ENALAPRILAT 1.25 MG/ML VIAL IV PRN (11:30)
--- NOTE | 2016-09-22 11:41 | HHI.FPPN ---
Subjective Remarks Overnight, SERG. Afebrile. Hypertensive to 195/80. Breathing well on room air. Voiding, stooling, ambulating (OOB w assistance) w/o difficulty [place] very good after plasmaphoresis yesterday, but woke up barely able to talk, swallowing much work. Having significant swallowing difficulty- able to eat some chicken soup in the afternoon, but had trouble with same meal in the evening. Speech therapy to re-eval/see pt today- will appreciate recs. ROS otherwise negative. Denies PIERCE/blurred vision, SOB/CP, n/v. (Yulissa Paul MD R1) Objective Vitals Vital Signs Date Time Temp Pulse Resp B/P Pulse Ox O2 Delivery O2 Flow Rate FiO2 09/22/16 08:30 62 09/22/16 08:30 Room Air 09/22/16 08:00 98.1 68 20 196/81 98 09/22/16 04:16 97.4 76 17 154/69 96 09/22/16 00:00 97.2 61 17 162/72 95 09/21/16 20:00 96.9 63 17 160/67 97 09/21/16 18:06 63 09/21/16 17:58 155/76 09/21/16 15:30 96.3 64 20 188/80 96 09/21/16 11:50 97.2 66 20 171/75 96 I/O 09/21/16 09/21/16 09/21/16 09/22/16 09/22/16 09/22/16 07:00 15:00 23:00 07:00 15:00 23:00 Intake Total 437 ml 360 ml 1550 ml 392 ml Output Total 200 ml 100 ml 650 ml 400 ml Balance 237 ml 260 ml 900 ml -8 ml Intake Oral 360 ml 360 ml IV Total 437 ml 1190 ml 392 ml Output Urine Total 200 ml 100 ml 650 ml 400 ml # Voids 2 1 4 (Yulissa Paul MD R1) Result Diagram: 09/22/1692209/22/16922 Imaging Last Impressions Chest X-Ray 09/20/16 0239 Signed Impressions: Service Date/Time: Tuesday, September 20, 2016 03:04 - CONCLUSION: No acute disease. No significant change has occurred. Reece Peters MD Catheter Placement X-Ray 09/20/16 0000 Signed Impressions: Service Date/Time: Tuesday, September 20, 2016 10:48 - CONCLUSION: Uncomplicated line placement as above. Catheter functions well and is ready for use. Agustin Guajardo Jr., MD Objective Remarks CONST: 85y male in moderate distress secondary to copious saliva. Very slurred speech, at times incomprehensible. HEENNT: No saccadic eye movements today. Poor halfway with multiple missing teeth. Excessive saliva production. RESP: Lungs CTAB. No wheezes. CV: RRR. No murmur appreciated (hx 1-2/6 JULIO CESAR at apex) GI: Soft NTND, +BS. R ventral hernia. MSK: Muscle tone symmetrical, appropriate NEURO: Speech slowed, dysarthric, at times incomprehensible. Strength 5/5 upper and lower extremities. Extremities neurovascularly intact. PSYCH: Affect appropriate. Good insight. Procedures 09/20- RIJ catheter placed 09/21- PEX 1 (Yulissa Paul MD R1) Urinary Catheter: No (Yulissa Paul MD R1) Vascular Central Line Catheter: Yes Assessment to: Continue Date of Insertion: Sep 20, 2016 Line: Central Venous Catheter Side: Right Location: Internal, Jugular (Yulissa Paul MD R1) A/P Assessment and Plan 85y male with myasthenia gravis, metastatic colon cancer, and metastatic prostate cancer, hospitalized 09/19/16 for myasthenia gravis exacerbation with dysarthria and dysphagia Discharge Planning 1-3 days, pending Neurology recommendations regarding inpt vs outpt plasmapheresis and steroids. PT: [facility] OT: no OT needed ST: will see daily here, not needed as outpt SDW: Dr. Doe (Yulissa Paul MD R1) Attending Attestation Patient seen and examined. Case reviewed and discussed with the resident team. Agree with plan of care as discussed with me and documented in the resident note. (Chris Doherty MD) Problem List: (1) HTN (hypertension) Status: Chronic Plan: No home medications/diagnosis of HTN. Held home alprazolam for anxiety, unlikely BZD withdrawal as 3d into hospital stay- would have presented earlier. Ddx: autonomic dysfunction secondary to MG vs anxiety from dysphagia vs fluids shift secondary to plasmapheresis vs other Plan -Added Vasotec 1.25mg IV q4h PRN SBP 160+ -Continue Clonidine 0.1mg q4h PRN SBP 180+ -Check EMR for last Vasotec administration prior to Clonidine use. -Give at least 30 min apart. -Give Vasotec prior to Clonidine use -If uncontrolled b/p or use of many PRN, will transition Vasotech from PRN to KHANH (2) Myasthenia gravis with acute exacerbation Status: Acute Plan: Dysarthria x2 weeks, dysphagia x3 days. Home medicines pyridostigmine and azathioprine. CBC shows myelosuppression likely secondary to azathioprine. Consulted Neurology (Follow w Dr. Loyola), Heme Onc (follows with Dr. Garcia ) S/p RIJ placed 09/20/16 by IR Imaging CXR (09/20): no acute process Plan -Continued dysphagia even with thin liquids diet yesterday -NPO at present until speech re-eval 09/22 -MG drugs below currently held (NPO), will anticipate ST and Neurology recommendations about medication changes from PO to IV/ if pt can tolerate PO meds -Pyridostigmine 120mg PO TID- held at present Azathioprine 25mg PO BID - held at present Neurology consulted -Plasmapheresis qod x5 (09/21: PEX #1). Had good response, but very temporary (<10 hours) -Speech study repeat 09/22 -Heme Onc Consulted -PEX recs as above -Heparin ppx on hold as pex can cause coagulopathy -PT/OT/ST/Case consulted PT consulted: discharge [facility] -OT: not indicated at discharge -ST: will re-assess pt today after near-aspiration and make dietary recommendations -Case management consulted Support Neurochecks q2h OOB ad alma delia Suction PRN (3) Dysphagia Status: Resolved Plan: Secondary to myasthenia gravis exacerbation Per ST, see plan for myasthenia gravis (4) Dysarthria Status: Acute Plan: Secondary to exacerbation of myasthenia gravis See plan for myasthenia gravis (5) Constipation Status: Chronic Plan: Hx constipation, multiple SBO, s/p multiple surgeries, including partial colectomy for metastatic colon cancer. Folate and B12 wnl. Continue Colace 100mg BID Milk of magnesium 30 mL BID PRN constipation (6) Hx of malignant neoplasm of prostate Status: Chronic Plan: -Hold home Leuprolide 45mg INJ every other week (7) History of colon cancer Status: Chronic Plan: - see plan for constipation (8) Anxiety Status: Chronic Plan: Home 0.25 Xanax q4h, uses sparing. Held Xanax due to concern pt may not be able to protect airway Continue to monitor (9) Nutrition, metabolism, and development symptoms Status: Chronic Plan: Fluids: Per PO Electrolytes: monitor/replete as needed Diet: NPO at present. ST- will re-eval 09/22 including if pt can tolerate PO meds. If unable, must switch PO meds to IV DVT prophylaxis: SCDs only (Hep ppx held for PEX) GI ppx: not indicated (Yulissa Paul MD R1) Problem Qualifiers (1) HTN (hypertension): Qualified Code: I10 - Essential hypertension (2) Dysphagia: Qualified Code: R13.10 - Dysphagia, unspecified type (3) Constipation: Qualified Code: K59.01 - Slow transit constipation Yulissa Paul MD R1 Sep 22, 2016 11:41 Chris Doherty MD Sep 23, 2016 09:51
[2016-09-22] MEDS ORDERED: cloNIDine HCL 0.1 MG TAB PO PRN (12:00)
--- NOTE | 2016-09-22 14:08 | PD.ONC.PN ---
Subjective Subjective Remarks Afebrile overnight. Pt states he doesn't feel much different after the first exchange treatment. He has no SOB. He is asking about getting a B12 injection as he thinks he is due for one. He has no other complaints and is about to walk with PT. Objective Data Date Time Temp Pulse Resp B/P Pulse Ox O2 Delivery O2 Flow Rate FiO2 09/22/16 12:21 97.9 72 20 167/76 99 09/22/16 09:30 158/65 09/22/16 08:30 62 09/22/16 08:30 Room Air 09/22/16 08:00 98.1 68 20 196/81 98 09/22/16 04:16 97.4 76 17 154/69 96 09/22/16 00:00 97.2 61 17 162/72 95 09/21/16 20:00 96.9 63 17 160/67 97 09/21/16 18:06 63 09/21/16 17:58 155/76 09/21/16 15:30 96.3 64 20 188/80 96 Result Diagram: 09/22/1623 09/22/16 0923 Laboratory Results Laboratory Tests Test 09/22/16 09:23 White Blood Count 3.5 TH/MM3 Red Blood Count 4.10 MIL/MM3 Hemoglobin 11.5 GM/DL Hematocrit 34.8 % Mean Corpuscular Volume 84.8 FL Mean Corpuscular Hemoglobin 28.0 PG Mean Corpuscular Hemoglobin 33.0 % Concent Red Cell Distribution Width 16.2 % Platelet Count 96 TH/MM3 Mean Platelet Volume 8.6 FL Prothrombin Time 13.4 SEC Prothromb Time International 1.2 RATIO Ratio Activated Partial 31.5 SEC Thromboplast Time Fibrinogen 119 mg/dL Sodium Level 142 MEQ/L Potassium Level 3.7 MEQ/L Chloride Level 109 MEQ/L Carbon Dioxide Level 24.7 MEQ/L Anion Gap 8 MEQ/L Blood Urea Nitrogen 11 MG/DL Creatinine 0.85 MG/DL Estimat Glomerular Filtration 85 ML/MIN Rate Random Glucose 98 MG/DL Calcium Level 9.0 MG/DL Administered Medications Medications (Trade) Dose Ordered Sig/Brock Route PRN Reason Start Time Stop Time Status Last Admin Dose Admin Azathioprine (Imuran) 25 mg BID PO 09/20/16 09:00 09/21/16 21:09 Docusate Sodium (Colace) 100 mg BID PO 09/20/16 09:00 09/21/16 21:08 IV Flush (NS Flush) 2 ml BID FLUSH 09/20/16 09:00 09/21/16 21:08 Heparin Sodium (Porcine) (Heparin Inj) 5,000 units Q12H SQ 09/20/16 02:45 Hold 09/20/16 15:20 Pyridostigmine Dexter (Mestinon) 120 mg TID PO 09/20/16 18:00 09/22/16 13:00 Clonidine (Catapres) 0.1 mg Q4HR PRN PO SBP> OR = 180 09/22/16 12:00 09/22/16 13:16 Objective Remarks GENERAL: Elderly male, walking around in room in no distress. SKIN: Warm and dry. HEAD: Normocephalic. EYES: No injection or drainage. NECK: Supple, trachea midline. CARDIOVASCULAR: +S1/S2. No murmur appreciated. RESPIRATORY: Breath sounds equal bilaterally. No accessory muscle use. GASTROINTESTINAL: Abdomen soft, non-tender, nondistended. EXTREMITIES: No cyanosis, or edema. NEUROLOGICAL: No obvious focal deficit. Awake, alert, and oriented x3. Assessment/Plan Problem List: (1) Myasthenia gravis Status: Chronic Plan: Plan: 09/22/16: Had 1st plasma exchange yesterday. Still c/o trouble swallowing. Speech therapy following. He should get exchange #2 tomorrow. 09/21/16: proceed with day 1 of PEX. monitor CBC, coags, calcium --heparin prophylaxis placed on hold as pex can cause coagulopathy --pex qod x 5 (2) Vitamin B 12 deficiency Status: Chronic Plan: -- Will give B12 injection today. Assessment 85y/o male with myasthenia gravis admitted with exacerbation. Hematology consulted to coordinate plasma exchange qod x 5. Attending Statement states speech improved last night after the first phersis but this morning speech got worst again. But now this evening he states he can talk better. Still has dysphagia. second pheresis tomorrow. B12 today. monitor labs for coagulopathy The exam, history, and the medical decision-making described in the above note were completed with the assistance of the mid-level provider. I reviewed and agree with the findings presented. I attest that I had a [id number] encounter with the patient on the same day, and personally performed and documented my assessment and findings in the medical record. Halle Deng Sep 22, 2016 14:08 Gabriel Garcia MD Sep 22, 2016 18:08
[2016-09-22] MEDS ORDERED: CYANOCOBALAMIN 1000 MCG/ML VIAL IM ONE (14:15)
[2016-09-22] MEDS: PYRIDOSTIGMINE INJ 10 MG/2 ML AMP IV PUSH SCH (17:57)
[2016-09-22] MEDS: DEXTROSE 5% IN WATE 1000ML INJ 1,000 ML IV SCH (17:58)
[2016-09-23] VITALS (9 sets, daily range): BP systolic 124–159; BP diastolic 65–69; PULSE 57–74; RESP 16–20; TEMP 96–97.2; O2SAT 97–98
[2016-09-23] MEDS: DEXTROSE 5% IN WATE 1000ML INJ 1,000 ML IV SCH ×2 (07:20→20:05)
[2016-09-23 07:44] LABS: HEMATOCRIT 35.2 % (39.0-51.0); MEAN CORPUSCULAR HEMOGLOBIN 27.4 PG (27.0-34.0); MEAN CORPUSCULAR HGB CONC 32.3 % (32.0-36.0); PLATELET COUNT 98 TH/MM3 (150-450); RED BLOOD COUNT 4.14 MIL/MM3 (4.50-5.90); RED CELL DISTRIBUTION WIDTH 15.7 % (11.6-17.2); WHITE BLOOD COUNT 2.5 TH/MM3 (4.0-11.0)
[2016-09-23 07:48] LABS: REVIEW FLAG FINAL
[2016-09-23 07:59] LABS: APTT (PATIENT) 28.7 SEC (24.3-30.1); INTERNATIONAL NORMALIZED RATIO 1.1 RATIO; PROTHROMBIN TIME - PATIENT 12.5 SEC (9.8-11.6)
--- NOTE | 2016-09-23 08:01 | HHI.PR ---
Subjective Remarks still swallow problems Objective Vital Signs Date Time Temp Pulse Resp B/P Pulse Ox O2 Delivery O2 Flow Rate FiO2 09/23/16 04:31 96.0 65 20 154/65 97 09/23/16 00:07 96.8 64 20 157/67 98 09/22/16 20:24 96.3 68 20 158/73 100 09/22/16 20:00 72 09/22/16 20:00 96 Room Air 09/22/16 18:01 21 09/22/16 16:26 95.7 63 20 130/62 99 09/22/16 12:21 97.9 72 20 167/76 99 09/22/16 11:15 97 21 09/22/16 09:30 158/65 09/22/16 08:30 62 09/22/16 08:30 Room Air 09/22/16 08:00 98.1 68 20 196/81 98 I/O 09/22/16 09/22/16 09/22/16 09/23/16 09/23/16 09/23/16 07:00 15:00 23:00 07:00 15:00 23:00 Intake Total 392 ml Output Total 400 ml 300 ml Balance -8 ml -300 ml IV Total 392 ml Output Urine Total 400 ml 300 ml # Voids 4 4 # Bowel Movements 1 0 Result Diagram: 09/23/16 0655 09/22/16 0923 Objective Remarks voiceno better maybe alittle worse this am and eye closure weaker jeff r eye still weak about same buccal same poor bp up Assessment and Plan Assessment and Plan imp mg pex sp #2 today watch bulbar fxt no sob and not sx below neck today right now npo refuses feeding tube oob can hep lock while oob and ambulate needs bp control hopefull some improvement after todays pex off immuran right now due to npo Mickey Loyola MD Sep 23, 2016 08:01
--- NOTE | 2016-09-23 08:46 | HHI.FPPN ---
Subjective Remarks No acute issues overnight. Vitals are stable, patient remains afebrile. His blood pressure has been elevated in [id number]'s/60-70's. He denies any chest pain, shortness of breath, fever, chills, nausea, vomiting, or leg pain. He has been ambulating around the floor frequently. He feels that his swallowing has improved somewhat today and is requiring oral suctioning less. He has not noticed improvement in his speech. (Thelma Walters MD R2) Objective Vitals Vital Signs Date Time Temp Pulse Resp B/P Pulse Ox O2 Delivery O2 Flow Rate FiO2 09/23/16 08:32 96.0 65 18 154/69 98 09/23/16 04:31 96.0 65 20 154/65 97 09/23/16 00:07 96.8 64 20 157/67 98 09/22/16 20:24 96.3 68 20 158/73 100 09/22/16 20:00 72 09/22/16 20:00 96 Room Air 09/22/16 18:01 21 09/22/16 16:26 95.7 63 20 130/62 99 09/22/16 12:21 97.9 72 20 167/76 99 09/22/16 11:15 97 21 09/22/16 09:30 158/65 I/O 09/22/16 09/22/16 09/22/16 09/23/16 09/23/16 09/23/16 07:00 15:00 23:00 07:00 15:00 23:00 Intake Total 392 ml Output Total 400 ml 300 ml Balance -8 ml -300 ml IV Total 392 ml Output Urine Total 400 ml 300 ml # Voids 4 4 # Bowel Movements 1 0 (Thelma Walters MD R2) Result Diagram: 09/23/16 0655 09/22/16 0923 Imaging Last Impressions Chest X-Ray 09/20/16 0239 Signed Impressions: Service Date/Time: Tuesday, September 20, 2016 03:04 - CONCLUSION: No acute disease. No significant change has occurred. Reece Peters MD Catheter Placement X-Ray 09/20/16 0000 Signed Impressions: Service Date/Time: Tuesday, September 20, 2016 10:48 - CONCLUSION: Uncomplicated line placement as above. Catheter functions well and is ready for use. Agustin Guajardo Jr., MD Objective Remarks CONST: male sitting up comfortably in bed, in NAD. Slurred speech, but comprehensible. HEENNT: Poor senior living with multiple missing teeth. Moist mucous membrane. OP clear and without erythema or edema. RESP: Lungs CTAB. No wheezes. CV: RRR. No murmur appreciated. GI: Soft NTND, +BS. R ventral hernia. MSK: Muscle tone symmetrical, appropriate. NEURO: Speech slowed, dysarthric. Strength 5/5 upper and lower extremities. Extremities neurovascularly intact. PSYCH: Affect appropriate. Good insight. Procedures 09/20- RIJ catheter placed 09/21- PEX 1 (Thelma Walters MD R2) Date of Insertion: Sep 20, 2016 Line: Central Venous Catheter Side: Right Location: Internal, Jugular (Thelma Walters MD R2) A/P Assessment and Plan 85y0 male with myasthenia gravis, metastatic colon cancer, and metastatic prostate cancer, admitted 09/19/16 for myasthenia gravis exacerbation with dysarthria and dysphagia. Discharge Planning 1-3 days, pending Neurology recommendations. PT: [facility] OT: no OT needed ST: will see daily here, not needed as outpt dw Dr. Doherty (Thelma Walters MD R2) Attending Attestation Patient seen and examined. Case reviewed and discussed with the resident team. Agree with plan of care as discussed with me and documented in the resident note. Noted elevation of b/p is most likely secondary to anxiety. Prior to being NPO he was taking alprazalam episodically for anxiety. Will start clonidine patch while in hospital and observe. (Chris Doherty MD) Problem List: (1) Myasthenia gravis with acute exacerbation Status: Acute Plan: Dysarthria and dysphagia. Home medicines pyridostigmine and azathioprine. CBC shows myelosuppression likely secondary to azathioprine. Consulted Neurology (Follow w Dr. Loyola), Heme Onc (follows with Dr. Garcia ) S/p RIJ placed 09/20/16 by IR Imaging CXR (09/20): no acute process Plan -Continued dysphagia -NPO -Pyridostigmine 120mg PO TID Azathioprine 25mg PO BID Neurology and Hematology consulted -Plasmapheresis qod x5 (09/21: PEX #1). Had good response, but temporary -Plan for plasmapheresis today -PT/OT/ST/Case consulted PT consulted: discharge [facility] -OT: not indicated at discharge -ST: ST at discharge -Case management consulted - OOB ad alma delia - Suction PRN (2) HTN (hypertension) Status: Chronic Plan: Likely secondary to anxiety. Plan - Clonidine Patch 0.1mg Q7days (3) Constipation Status: Chronic Plan: Hx constipation, multiple SBO, s/p multiple surgeries, including partial colectomy for metastatic colon cancer. Folate and B12 wnl. Continue Colace 100mg BID Milk of magnesium 30 mL BID PRN constipation (4) Hx of malignant neoplasm of prostate Status: Chronic Plan: -Leuprolide 45mg INJ every other week (5) Anxiety Status: Chronic Plan: Home 0.25 Xanax q4h, uses sparing. Held Xanax due to concern pt may not be able to protect airway Continue to monitor (6) Nutrition, metabolism, and development symptoms Status: Chronic Plan: Fluids: Maintenance at 120ml/hr while NPO Electrolytes: monitor/replete as needed Diet: NPO pending further speech eval DVT prophylaxis: SCDs (Hep ppx held for PEX) (Thelma Walters MD R2) Problem Qualifiers (1) HTN (hypertension): Qualified Code: I10 - Essential hypertension (2) Constipation: Qualified Code: K59.01 - Slow transit constipation Thelma Walters MD R2 Sep 23, 2016 08:46 Chris Doherty MD Sep 23, 2016 09:54 Qualified Code: I10 - Essential hypertension (2) Constipation: Qualified Code: K59.01 - Slow transit constipation Thelma Walters MD R2 Sep 23, 2016 08:46 Status: Chronic Plan: Home 0.25 Xanax q4h, uses sparing. Held Xanax due to concern pt may not be able to protect airway Continue to monitor (9) Nutrition, metabolism, and development symptoms Status: Chronic Plan: Fluids: Per PO Electrolytes: monitor/replete as needed Diet: NPO at present. ST- will re-eval 09/22 including if pt can tolerate PO meds. If unable, must switch PO meds to IV DVT prophylaxis: SCDs only (Hep ppx held for PEX) GI ppx: not indicated Problem Qualifiers (1) HTN (hypertension): Qualified Code: I10 - Essential hypertension (2) Dysphagia: Qualified Code: R13.10 - Dysphagia, unspecified type (3) Constipation: Qualified Code: K59.01 - Slow transit constipation Thelma Walters MD R2 Sep 23, 2016 08:46
[2016-09-23] MEDS: SODIUM CHLORIDE 0.9% FLUSH 5 ML FLUSH FLUSH SCH ×2 (09:03→20:04)
[2016-09-23] MEDS: PYRIDOSTIGMINE INJ 10 MG/2 ML AMP IV PUSH SCH ×3 (09:04→17:31)
[2016-09-23] MEDS: cloNIDine HCL 0.1 MG/24 HR PATCH TD SCH (09:06)
[2016-09-23] MEDS: SODIUM CHLOR 0.9% 1000 ML INJ 1,000 ML IV SCH ×2 (09:45→17:36)
[2016-09-23] MEDS: CALCIUM GLUCONATE INJ 4 GM in SODIUM CHLOR 0.9% 250 ML INJ 200 ML IV SCH (14:44)
[2016-09-23] MEDS: SODIUM CHLOR 0.9% 1000 ML IV SCH (14:44)
[2016-09-23] MEDS: ANTICOAGULANT CITRATE DEXTROSE SOLN-A 1L OTHER SCH (14:44)
[2016-09-23] MEDS: ALBUMIN HUMAN 5% 25 GM/500 ML BOTTLE IV SCH (14:44)
--- NOTE | 2016-09-23 21:13 | PD.ONC.PN ---
Subjective Subjective Remarks speech and swallowing better after the second plasmaphereses today. Objective Data Date Time Temp Pulse Resp B/P Pulse Ox O2 Delivery O2 Flow Rate FiO2 09/23/16 21:01 97.2 71 16 153/67 98 09/23/16 16:05 96.0 74 18 159/69 09/23/16 15:00 57 09/23/16 12:37 96.0 68 18 124/68 98 09/23/16 08:32 96.0 65 18 154/69 98 09/23/16 07:15 57 09/23/16 07:00 Room Air 09/23/16 04:31 96.0 65 20 154/65 97 09/23/16 00:07 96.8 64 20 157/67 98 09/23/16 09/23/16 09/23/16 07:00 15:00 23:00 Output Total 500 ml Balance -500 ml Result Diagram: 09/23/16 0655 09/22/16 0923 Laboratory Results Laboratory Tests Test 09/23/16 06:55 White Blood Count 2.5 TH/MM3 Red Blood Count 4.14 MIL/MM3 Hemoglobin 11.4 GM/DL Hematocrit 35.2 % Mean Corpuscular Volume 85.0 FL Mean Corpuscular Hemoglobin 27.4 PG Mean Corpuscular Hemoglobin 32.3 % Concent Red Cell Distribution Width 15.7 % Platelet Count 98 TH/MM3 Mean Platelet Volume 8.6 FL Prothrombin Time 12.5 SEC Prothromb Time International 1.1 RATIO Ratio Activated Partial 28.7 SEC Thromboplast Time Fibrinogen 147 mg/dL Calcium Level 8.8 MG/DL Administered Medications Medications (Trade) Dose Ordered Sig/Brock Route PRN Reason Start Time Stop Time Status Last Admin Dose Admin Azathioprine (Imuran) 25 mg BID PO 09/20/16 09:00 Hold 09/21/16 21:09 Docusate Sodium (Colace) 100 mg BID PO 09/20/16 09:00 Hold 09/21/16 21:08 IV Flush (NS Flush) 2 ml BID FLUSH 09/20/16 09:00 09/23/16 20:04 Heparin Sodium (Porcine) (Heparin Inj) 5,000 units Q12H SQ 09/20/16 02:45 Hold 09/20/16 15:20 Pyridostigmine Naselle 4 mg 4 mg TID IV PUSH 09/22/16 18:00 09/23/16 17:31 Dextrose (D5W 1000 ml Inj) 1,000 ml @ 75 mls/hr [id number] IV 09/22/16 18:00 09/22/16 17:58 Clonidine (Catapres-Tts 0.1mg Patch.7d) 1 patch Q7D TD 09/23/16 09:00 09/23/16 09:06 Objective Remarks GENERAL: Well-nourished, well-developed patient. SKIN: Warm and dry. HEAD: Normocephalic. EYES: No scleral icterus. No injection or drainage. NECK: Supple, trachea midline. No JVD or lymphadenopathy. LYMPHATIC: No adenopathy. CARDIOVASCULAR: Regular rate and rhythm without murmurs. RESPIRATORY: Breath sounds equal bilaterally. No accessory muscle use. GASTROINTESTINAL: Abdomen soft, non-tender, nondistended. EXTREMITIES: No cyanosis, or edema. NEUROLOGICAL: Awake, alert, and oriented x3. Assessment/Plan Problem List: (1) Myasthenia gravis Status: Chronic Plan: Plan: 09/23/16 Had second plasma phereses today . He is feeling somewhat better. continue pheresis QOD 09/22/16: Had 1st plasma exchange yesterday. Still c/o trouble swallowing. Speech therapy following. He should get exchange #2 tomorrow. 09/21/16: proceed with day 1 of PEX. monitor CBC, coags, calcium --heparin prophylaxis placed on hold as pex can cause coagulopathy --pex qod x 5 (2) Vitamin B 12 deficiency Status: Chronic Plan: -- Had B12 injection yesterday. Assessment 85y/o male with myasthenia gravis admitted with exacerbation. Hematology consulted to coordinate plasma exchange qod x 5. Gabriel Garcia MD Sep 23, 2016 21:13
[2016-09-24] VITALS (11 sets, daily range): BP systolic 142–175; BP diastolic 59–79; PULSE 63–174; RESP 16–18; TEMP 95.5–97.9; O2SAT 96–100
[2016-09-24] MEDS: SODIUM CHLOR 0.9% 1000 ML INJ 1,000 ML IV SCH ×3 (03:05→19:05)
--- NOTE | 2016-09-24 08:03 | HHI.PR ---
Subjective Remarks still swallow problems really no better after second pex Objective Vital Signs Date Time Temp Pulse Resp B/P Pulse Ox O2 Delivery O2 Flow Rate FiO2 09/24/16 04:00 97.7 70 16 147/59 96 09/24/16 03:48 96 09/24/16 00:07 96.6 68 16 142/64 98 09/23/16 21:01 97.2 71 16 153/67 98 09/23/16 20:00 64 09/23/16 20:00 98 Room Air 09/23/16 16:05 96.0 74 18 159/69 09/23/16 15:00 57 09/23/16 12:37 96.0 68 18 124/68 98 09/23/16 08:32 96.0 65 18 154/69 98 I/O 09/23/16 09/23/16 09/23/16 09/24/16 09/24/16 09/24/16 07:00 15:00 23:00 07:00 15:00 23:00 Intake Total 480 ml 960 ml Output Total 500 ml 875 ml Balance -500 ml 480 ml 85 ml IV Total 480 ml 960 ml Output Urine Total 500 ml 875 ml # Bowel Movements 0 Result Diagram: 09/23/16 0655 09/22/16 0923 Objective Remarks voice a little better this am and eye closure weaker jeff r eye this am although has not gotten meds this am yet nl gait buccal about same bp up rx patch for now Assessment and Plan Assessment and Plan imp mg pex sp #2 yest watch bulbar fxt no sob and not sx below neck today right now npo refuses feeding tube oob can hep lock while oob and ambulate on bp control off immuran right now due to npo will need exended course of plasma exchange ice test r eye did not work well today but his speech improved after iv mestinon this am we waited for his med and some better not nl though Mickey Loyola MD Sep 24, 2016 08:03
[2016-09-24] MEDS: PYRIDOSTIGMINE INJ 10 MG/2 ML AMP IV PUSH SCH ×3 (08:16→20:11)
[2016-09-24] MEDS: SODIUM CHLORIDE 0.9% FLUSH 5 ML FLUSH FLUSH SCH ×2 (08:17→21:00)
[2016-09-24 08:42] LABS: HEMATOCRIT 36.2 % (39.0-51.0); MEAN CELL VOLUME 84.1 FL (80.0-100.0); MEAN CORPUSCULAR HEMOGLOBIN 28.2 PG (27.0-34.0); MEAN CORPUSCULAR HGB CONC 33.5 % (32.0-36.0); PLATELET COUNT 116 TH/MM3 (150-450); RED CELL DISTRIBUTION WIDTH 16.2 % (11.6-17.2); REVIEW FLAG FINAL; WHITE BLOOD COUNT 4.4 TH/MM3 (4.0-11.0)
[2016-09-24 08:55] LABS: APTT (PATIENT) 31.7 SEC (24.3-30.1); INTERNATIONAL NORMALIZED RATIO 1.3 RATIO; PROTHROMBIN TIME - PATIENT 14.1 SEC (9.8-11.6)
[2016-09-24] MEDS: DEXTROSE 5% IN WATE 1000ML INJ 1,000 ML IV SCH ×2 (10:00→23:20)
--- NOTE | 2016-09-24 11:45 | PD.ONC.PN ---
Subjective Subjective Remarks Afebrile overnight. Patient resting in bed with eyes closed on approach. He awakens easily to gentle shaking. He states he feels like his speech and swallowing are improved today. He mentions that he did not sleep very well last night. He has no other complaints. Objective Data Date Time Temp Pulse Resp B/P Pulse Ox O2 Delivery O2 Flow Rate FiO2 09/24/16 10:55 96 09/24/16 08:00 95.5 79 18 146/70 96 09/24/16 04:00 97.7 70 16 147/59 96 09/24/16 03:48 96 09/24/16 00:07 96.6 68 16 142/64 98 09/23/16 21:01 97.2 71 16 153/67 98 09/23/16 20:00 64 09/23/16 20:00 98 Room Air 09/23/16 16:05 96.0 74 18 159/69 09/23/16 15:00 57 09/23/16 12:37 96.0 68 18 124/68 98 09/24/16 09/24/16 09/24/16 07:00 15:00 23:00 Intake Total 960 ml Output Total 875 ml Balance 85 ml Result Diagram: 09/24/16 0740 09/22/16 0923 Laboratory Results Laboratory Tests Test 09/24/16 07:40 White Blood Count 4.4 TH/MM3 Red Blood Count 4.30 MIL/MM3 Hemoglobin 12.1 GM/DL Hematocrit 36.2 % Mean Corpuscular Volume 84.1 FL Mean Corpuscular Hemoglobin 28.2 PG Mean Corpuscular Hemoglobin 33.5 % Concent Red Cell Distribution Width 16.2 % Platelet Count 116 TH/MM3 Mean Platelet Volume 8.7 FL Prothrombin Time 14.1 SEC Prothromb Time International 1.3 RATIO Ratio Activated Partial 31.7 SEC Thromboplast Time Fibrinogen 81 mg/dL Calcium Level 8.9 MG/DL Administered Medications Medications (Trade) Dose Ordered Sig/Brock Route PRN Reason Start Time Stop Time Status Last Admin Dose Admin Azathioprine (Imuran) 25 mg BID PO 09/20/16 09:00 Hold 09/21/16 21:09 Docusate Sodium (Colace) 100 mg BID PO 09/20/16 09:00 Hold 09/21/16 21:08 IV Flush (NS Flush) 2 ml BID FLUSH 09/20/16 09:00 09/24/16 08:17 Heparin Sodium (Porcine) (Heparin Inj) 5,000 units Q12H SQ 09/20/16 02:45 Hold 09/20/16 15:20 Pyridostigmine [place] 4 mg 4 mg TID IV PUSH 09/22/16 18:00 09/24/16 08:16 Dextrose (D5W 1000 ml Inj) 1,000 ml @ 75 mls/hr [id number] IV 09/22/16 18:00 09/22/16 17:58 Clonidine 1 patch 1 patch Q7D TD 09/23/16 09:00 09/23/16 09:06 Sodium Chloride (NS 1000 ml Inj) 1,000 ml @ 120 mls/hr [id number] IV 09/23/16 09:45 09/24/16 10:09 Objective Remarks GENERAL: Pleasant, elderly male lying in bed in no distress. [place]. SKIN: Warm and dry. HEAD: Normocephalic. EYES: No injection or drainage. NECK: Supple, trachea midline. CARDIOVASCULAR: +S1/S2. No murmur appreciated. RESPIRATORY: Lungs clear anteriorly. Breathing unlabored. GASTROINTESTINAL: Abdomen soft, non-tender, nondistended. EXTREMITIES: 1+ edema to BLE. NEUROLOGICAL: No obvious focal deficit. Awake, alert, and oriented x3. Assessment/Plan Problem List: (1) Myasthenia gravis Status: Chronic Plan: Plan: 09/24/15: Second plasma exchange yesterday. He states his swallowing and speech seem improved today. Plan for exchange #3 tomorrow. Continue supportive care, PT. 09/23/16 Had second plasma phereses today . He is feeling somewhat better. continue pheresis QOD 09/22/16: Had 1st plasma exchange yesterday. Still c/o trouble swallowing. Speech therapy following. He should get exchange #2 tomorrow. 09/21/16: proceed with day 1 of PEX. monitor CBC, coags, calcium --heparin prophylaxis placed on hold as plasma exchange can produce a predictable decrease in blood coagulation factors that may predispose to bleeding. --PEX QOD x 5 total doses. (2) Vitamin B 12 deficiency Status: Chronic Plan: -- Monitor -- Rec'd monthly injection on 09/22. Assessment 85y/o male with myasthenia gravis admitted with exacerbation. Hematology consulted to coordinate plasma exchange qod x 5. Attending Statement speech and swallowing much better. ate mashed potato. speech get worst after talking for a long time. Had some relative today. No coagulopathy. Pheresis # 3 tomorrow. The exam, history, and the medical decision-making described in the above note were completed with the assistance of the mid-level provider. I reviewed and agree with the findings presented. I attest that I had a [id number] encounter with the patient on the same day, and personally performed and documented my assessment and findings in the medical record. Halle Deng Sep 24, 2016 11:44 Gabriel Garcia MD Sep 24, 2016 16:08
--- NOTE | 2016-09-24 15:37 | HHI.FPPN ---
Subjective Remarks No acute issues overnight. AFVSS. Remains hypertensive to 145/80, but improved from yesterday. Denies f/c, n/v, SOB/CP, leg pain. Reports swallowing improved a little, but not very much. He is on a clear liquid diet, but afraid to eat since almost choked on jello yesterday. (Yulissa Paul MD R1) Objective Vitals Vital Signs Date Time Temp Pulse Resp B/P Pulse Ox O2 Delivery O2 Flow Rate FiO2 09/24/16 10:55 96 09/24/16 08:00 79 09/24/16 08:00 95.5 79 18 146/70 96 09/24/16 08:00 95.8 70 18 159/73 97 09/24/16 07:15 79 09/24/16 07:00 Room Air 09/24/16 04:00 97.7 70 16 147/59 96 09/24/16 03:48 96 09/24/16 00:07 96.6 68 16 142/64 98 09/23/16 21:01 97.2 71 16 153/67 98 09/23/16 20:00 64 09/23/16 20:00 98 Room Air 09/23/16 16:05 96.0 74 18 159/69 I/O 09/23/16 09/23/16 09/23/16 09/24/16 09/24/16 09/24/16 07:00 15:00 23:00 07:00 15:00 23:00 Intake Total 480 ml 960 ml Output Total 500 ml 875 ml Balance -500 ml 480 ml 85 ml IV Total 480 ml 960 ml Output Urine Total 500 ml 875 ml # Bowel Movements 0 (Yulissa Paul MD R1) Result Diagram: 09/24/16 0740 09/22/16 0923 Imaging Last Impressions Chest X-Ray 09/20/16 0239 Signed Impressions: Service Date/Time: Tuesday, September 20, 2016 03:04 - CONCLUSION: No acute disease. No significant change has occurred. Reece Peters MD Catheter Placement X-Ray 09/20/16 0000 Signed Impressions: Service Date/Time: Tuesday, September 20, 2016 10:48 - CONCLUSION: Uncomplicated line placement as above. Catheter functions well and is ready for use. Agustin Guajardo Jr., MD Objective Remarks CONST: male sitting up comfortably in bed, in NAD. Slurred speech, but comprehensible. HEENNT: Poor penitentiary with multiple missing teeth. Moist mucous membrane. OP clear and without erythema or edema. RESP: Lungs CTAB. No wheezes. CV: RRR. No murmur appreciated. GI: Soft NTND, +BS. R ventral hernia. MSK: Muscle tone symmetrical, appropriate. NEURO: Speech slowed, dysarthric. Strength 5/5 upper and lower extremities. Extremities neurovascularly intact. PSYCH: Affect appropriate. Good insight. Procedures 09/20- RIJ catheter placed 09/21- PEX 1 (Yulissa Paul MD R1) Urinary Catheter: No (Yulissa Paul MD R1) Vascular Central Line Catheter: Yes Assessment to: Continue Date of Insertion: Sep 20, 2016 Line: Central Venous Catheter Side: Right Location: Internal, Jugular (Yulissa Paul MD R1) A/P Assessment and Plan 85y male with myasthenia gravis, metastatic colon cancer, and metastatic prostate cancer, admitted 09/19/16 for myasthenia gravis exacerbation with dysarthria and dysphagia. Discharge Planning 5-7 days, pending Neurology recommendations. Recommended minimum 5 plasma exchanges every other day- 09/21, 09/23, 09/25, 09/27, 09/30 PT: [facility] OT: no OT needed ST: will see daily here, not needed as outpt SDW: Dr. Mayer DW: Dr Doherty (Yulissa Paul MD R1) Attending Attestation Patient seen and examined. Case reviewed and discussed with the resident team. Agree with plan of care as discussed with me and documented in the resident note. (Chris Doherty MD) Problem List: (1) Myasthenia gravis with acute exacerbation Status: Acute Plan: Presented with dysarthria and dysphagia. Home medicines pyridostigmine and azathioprine. CBC shows myelosuppression likely secondary to azathioprine. Consulted Neurology, Heme Onc (follows outpatient with Dr. Garcia). RIJ placed 09/20/16 by IR. CXR (09/20): no acute process Plan -Continued dysphagia -Diet: Pureed, honey thickened, heart healthy per ST 09/24 -Continue Regenol 4mg IV TID (equivalent to home Pyridostigmine 120mg PO TID) Hold Azathioprine 25mg PO BID- held while unable to swallow pills Neurology and Hematology consulted -Plasmapheresis qod x5 (09/21 PEX #1). Had good response, but temporary, slowly improving. -Plasmapheresis #3 tomorrow -PT/OT/ST/Case consulted [facility] -[facility]: not indicated at discharge -ST: ST at discharge -Case management consulted - Suction PRN (2) HTN (hypertension) Status: Chronic Plan: History of anxiety - Clonidine Patch 0.1mg Q7days (3) Constipation Status: Chronic Plan: Hx constipation, multiple SBO, s/p multiple surgeries, including partial colectomy for metastatic colon cancer. Folate and B12 wnl. Continue Colace 100mg BID Milk of magnesium 30 mL BID PRN constipation (4) Hx of malignant neoplasm of prostate Status: Chronic Plan: -Leuprolide 45mg INJ every other week (5) Anxiety Status: Chronic Plan: Home 0.25 Xanax q4h, uses sparingly. Held Xanax due to concern pt may not be able to protect airway Continue to monitor (6) Nutrition, metabolism, and development symptoms Status: Chronic Plan: Fluids: Maintenance at 120ml/hr while NPO Electrolytes: monitor/replete as needed Diet: NPO pending further speech eval DVT prophylaxis: SCDs (Hep ppx held for PEX) GI ppx: not indicated OOB with assistance (Yulissa Paul MD R1) Problem Qualifiers (1) HTN (hypertension): Qualified Code: I10 - Essential hypertension (2) Constipation: Qualified Code: K59.01 - Slow transit constipation Yulissa Paul MD R1 Sep 24, 2016 15:37 Chris Doherty MD Sep 26, 2016 13:00
[2016-09-25] VITALS (8 sets, daily range): BP systolic 134–160; BP diastolic 62–67; PULSE 66–92; RESP 17–19; TEMP 96.3–97.5; O2SAT 95–99
[2016-09-25] MEDS: SODIUM CHLOR 0.9% 1000 ML INJ 1,000 ML IV SCH (03:00)
[2016-09-25 07:27] LABS: AUTOMATED NEUTROPHIL # 2.1 TH/MM3 (1.8-7.7); BASOPHIL % 0.6 % (0.0-2.0); EOSINOPHIL # 0.1 TH/MM3 (0-0.4); EOSINOPHIL % 3.5 % (0.0-4.0); HEMATOCRIT 33.5 % (39.0-51.0); LYMPH % 9.8 % (9.0-44.0); LYMPHOCYTE # 0.3 TH/MM3 (1.0-4.8); MEAN CELL VOLUME 85.3 FL (80.0-100.0); MEAN CORPUSCULAR HEMOGLOBIN 27.8 PG (27.0-34.0); MEAN CORPUSCULAR HGB CONC 32.6 % (32.0-36.0); NEUT % 74.1 % (16.0-70.0); PLATELET COUNT 89 TH/MM3 (150-450); RED BLOOD COUNT 3.93 MIL/MM3 (4.50-5.90); WHITE BLOOD COUNT 2.8 TH/MM3 (4.0-11.0)
[2016-09-25 07:28] LABS: APTT (PATIENT) 30.3 SEC (24.3-30.1); INTERNATIONAL NORMALIZED RATIO 1.2 RATIO; PROTHROMBIN TIME - PATIENT 13.3 SEC (9.8-11.6)
[2016-09-25 07:35] LABS: HEMO FLAGS AUTO DIFF
[2016-09-25 07:45] LABS: ALKALINE PHOSPHATASE 28 U/L (45-117); ALT (GPT) 18 U/L (12-78); ANION GAP 8 MEQ/L (5-15); AST (GOT) 16 U/L (15-37); BICARBONATE 24.7 MEQ/L (21.0-32.0); BLOOD UREA NITROGEN 7 MG/DL (7-18); CHLORIDE 111 MEQ/L (98-107); GLOMERULAR FILTRATION RATE 102 ML/MIN (>89); POTASSIUM 3.2 MEQ/L (3.5-5.1); SODIUM (NA) 144 MEQ/L (136-145); TOTAL BILIRUBIN ADULT 2.2 MG/DL (0.2-1.0)
[2016-09-25] MEDS: SODIUM CHLORIDE 0.9% FLUSH 5 ML FLUSH FLUSH SCH ×2 (09:00→22:53)
[2016-09-25] MEDS ORDERED: POTASSIUM CHLORIDE 20 MEQ CONTROLLED RELEASE TAB PO ONE (09:00)
[2016-09-25 09:34] LABS: PLATELET ESTIMATE SMEAR LOW (NORMAL); PLATELET MORPHOLOGY NORMAL (NORMAL); SCAN/DIFF AUTO DIFF CONFIRMED
[2016-09-25] MEDS: PYRIDOSTIGMINE INJ 10 MG/2 ML AMP IV PUSH SCH (10:00)
--- NOTE | 2016-09-25 10:13 | PD.ONC.PN ---
Subjective Subjective Remarks Afebrile overnight. Patient resting comfortably. He is eating his breakfast and reports his swallowing has improved a lot since starting plasma exchange. His speech "comes and goes." He still has difficulty talking. No bleeding. Objective Data Date Time Temp Pulse Resp B/P Pulse Ox O2 Delivery O2 Flow Rate FiO2 09/25/16 08:00 97.2 92 18 136/65 98 09/25/16 04:44 97.2 75 18 142/63 96 09/25/16 00:19 96.3 80 18 145/67 98 09/24/16 21:42 100 09/24/16 21:05 63 145/63 09/24/16 20:19 97.9 77 18 175/79 100 09/24/16 20:00 102 09/24/16 20:00 102 09/24/16 16:00 174 09/24/16 16:00 96.4 63 18 146/67 98 09/24/16 10:55 96 Result Diagram: 09/25/16 0633 09/25/16 0633 Laboratory Results Laboratory Tests Test 09/25/16 06:33 White Blood Count 2.8 TH/MM3 Red Blood Count 3.93 MIL/MM3 Hemoglobin 10.9 GM/DL Hematocrit 33.5 % Mean Corpuscular Volume 85.3 FL Mean Corpuscular Hemoglobin 27.8 PG Mean Corpuscular Hemoglobin 32.6 % Concent Red Cell Distribution Width 16.0 % Platelet Count 89 TH/MM3 Mean Platelet Volume 8.7 FL Neutrophils (%) (Auto) 74.1 % Lymphocytes (%) (Auto) 9.8 % Monocytes (%) (Auto) 12.0 % Eosinophils (%) (Auto) 3.5 % Basophils (%) (Auto) 0.6 % Neutrophils # (Auto) 2.1 TH/MM3 Lymphocytes # (Auto) 0.3 TH/MM3 Monocytes # (Auto) 0.3 TH/MM3 Eosinophils # (Auto) 0.1 TH/MM3 Basophils # (Auto) 0.0 TH/MM3 CBC Comment AUTO DIFF Differential Comment AUTO DIFF CONFIRMED Platelet Estimate LOW Platelet Morphology Comment NORMAL Prothrombin Time 13.3 SEC Prothromb Time International 1.2 RATIO Ratio Activated Partial 30.3 SEC Thromboplast Time Fibrinogen 100 mg/dL Sodium Level 144 MEQ/L Potassium Level 3.2 MEQ/L Chloride Level 111 MEQ/L Carbon Dioxide Level 24.7 MEQ/L Anion Gap 8 MEQ/L Blood Urea Nitrogen 7 MG/DL Creatinine 0.73 MG/DL Estimat Glomerular Filtration 102 ML/MIN Rate Random Glucose 82 MG/DL Calcium Level 8.3 MG/DL Total Bilirubin 2.2 MG/DL Aspartate Amino Transf 16 U/L (AST/SGOT) Alanine Aminotransferase 18 U/L (ALT/SGPT) Alkaline Phosphatase 28 U/L Total Protein 5.4 GM/DL Albumin 4.2 GM/DL Administered Medications Medications (Trade) Dose Ordered Sig/Brock Route PRN Reason Start Time Stop Time Status Last Admin Dose Admin Azathioprine (Imuran) 25 mg BID PO 09/20/16 09:00 Hold 09/21/16 21:09 Docusate Sodium (Colace) 100 mg BID PO 09/20/16 09:00 Hold 09/21/16 21:08 IV Flush (NS Flush) 2 ml BID FLUSH 09/20/16 09:00 09/24/16 08:17 Heparin Sodium (Porcine) (Heparin Inj) 5,000 units Q12H SQ 09/20/16 02:45 Hold 09/20/16 15:20 Pyridostigmine [place] 4 mg 4 mg TID IV PUSH 09/22/16 18:00 09/25/16 10:00 Dextrose (D5W 1000 ml Inj) 1,000 ml @ 75 mls/hr [id number] IV 09/22/16 18:00 09/22/16 17:58 Clonidine 1 patch 1 patch Q7D TD 09/23/16 09:00 09/23/16 09:06 Sodium Chloride (NS 1000 ml Inj) 1,000 ml @ 120 mls/hr Q8H20M IV 09/23/16 09:45 09/25/16 03:00 Objective Remarks GENERAL: Elderly male, sitting up in chair next to bed in [facility]. SKIN: Warm and dry. vascath in place, right neck. no bleeding. site clean. HEAD: Normocephalic. EYES: No injection or drainage. NECK: Supple, trachea midline. CARDIOVASCULAR: Regular rate and rhythm RESPIRATORY: Breath sounds equal bilaterally. No accessory muscle use. GASTROINTESTINAL: Abdomen soft, non-tender, nondistended. EXTREMITIES: No cyanosis MUSCULOSKELETAL: Adequate muscle tone. NEUROLOGICAL: awake and alert, garbled speech. facial movements symmetric. Assessment/Plan Problem List: (1) Myasthenia gravis Status: Chronic Plan: 09/25/15: PEX #3. [id number]. will give 1 unit cryo today after PEX 09/24/15: Second plasma exchange yesterday. He states his swallowing and speech seem improved today. Plan for exchange #3 tomorrow. Continue supportive care, PT. 09/23/16 Had second plasma phereses today . He is feeling somewhat better. continue pheresis QOD 09/22/16: Had 1st plasma exchange yesterday. Still c/o trouble swallowing. Speech therapy following. He should get exchange #2 tomorrow. 09/21/16: proceed with day 1 of PEX. monitor CBC, coags, calcium --heparin prophylaxis placed on hold as plasma exchange can produce a predictable decrease in blood coagulation factors that may predispose to bleeding. --PEX QOD x 5 total doses. (2) Vitamin B 12 deficiency Status: Chronic Plan: -- Monitor -- Rec'd monthly injection on 09/22. Assessment 85y/o male with myasthenia gravis admitted with exacerbation. Hematology consulted to coordinate plasma exchange qod x 5. Plan 1. 1 unit cryo after PEX 2. PEX #3 today Attending Statement The exam, history, and the medical decision-making described in the above note were completed with the assistance of the mid-level provider. I reviewed and agree with the findings presented. I attest that I had a [id number] encounter with the patient on the same day, and personally performed and documented my assessment and findings in the medical record. Mr. Peters was seen and examined. He reports his voice changes persist as does his difficulty swallowing. He told me that on previous occasions, he usually felt a great deal better after the first 2 Plasma exchange treatments. He is scheduled for 3 additional exchanges including today. Low fibrinogen level noted, cryo infusion after exchange today. He is otherwise stable. Elly Grimaldo Sep 25, 2016 10:13 Leonardo Nevarez MD Sep 25, 2016 12:53
[2016-09-25] MEDS ORDERED: SODIUM CHLOR 0.9% 250 ML INJ 250 ML IV ONE (10:15)
--- NOTE | 2016-09-25 10:29 | HHI.FPPN ---
Subjective Remarks No acute issues overnight. Vitals are stable, patient remains afebrile. He states that he is able to eat the pured foods well and has not been choking as much with this new consistency. He still struggles with thin liquids. His only other concern today is that his eyes have been watering and sore for the past 3 days. He notes that his right eye appears red. He denies any chest pain , shortness of breath, fever, chills, nausea or vomiting. (Thelma Walters MD R2) Objective Vitals Vital Signs Date Time Temp Pulse Resp B/P Pulse Ox O2 Delivery O2 Flow Rate FiO2 09/25/16 08:00 97.2 92 18 136/65 98 09/25/16 04:44 97.2 75 18 142/63 96 09/25/16 00:19 96.3 80 18 145/67 98 09/24/16 21:42 100 09/24/16 21:05 63 145/63 09/24/16 20:19 97.9 77 18 175/79 100 09/24/16 20:00 102 09/24/16 20:00 102 09/24/16 16:00 174 09/24/16 16:00 96.4 63 18 146/67 98 09/24/16 10:55 96 I/O 09/24/16 09/24/16 09/24/16 09/25/16 09/25/16 09/25/16 07:00 15:00 23:00 07:00 15:00 23:00 Intake Total 960 ml 240 ml Output Total 875 ml 650 ml Balance 85 ml 240 ml -650 ml Intake Oral 240 ml IV Total 960 ml Output Urine Total 875 ml 650 ml # Voids 3 # Bowel Movements 0 0 (Thelma Walters MD R2) Result Diagram: 09/25/16 0633 09/25/16 0633 Imaging Last Impressions Chest X-Ray 09/20/16 0239 Signed Impressions: Service Date/Time: Tuesday, September 20, 2016 03:04 - CONCLUSION: No acute disease. No significant change has occurred. Reece Peters MD Catheter Placement X-Ray 09/20/16 0000 Signed Impressions: Service Date/Time: Tuesday, September 20, 2016 10:48 - CONCLUSION: Uncomplicated line placement as above. Catheter functions well and is ready for use. Agustin Guajardo Jr., MD Objective Remarks CONST: male sitting up comfortably in chair, in NAD. Slightly slurred speech, but comprehensible. HEENT: Poor alf with multiple missing teeth. Moist mucous membranes. OP clear and without erythema or edema. Right conjunctival injection. RESP: Lungs CTAB. No wheezes. CV: RRR. No murmur appreciated. GI: Soft NTND, +BS. R ventral hernia. MSK: Muscle tone symmetrical, appropriate. NEURO: Speech slowed, dysarthric. Strength 5/5 upper and lower extremities. Extremities neurovascularly intact. PSYCH: Affect appropriate. Good insight. Procedures 09/20- RIJ catheter placed 09/21- PEX 1 (Thelma Walters MD R2) Date of Insertion: Sep 20, 2016 Line: Central Venous Catheter Side: Right Location: Internal, Jugular (Thelma Walters MD R2) A/P Assessment and Plan 85yo male with a PMH significant for myasthenia gravis, metastatic colon cancer , and metastatic prostate cancer, admitted 09/19/16 for myasthenia gravis exacerbation with dysarthria and dysphagia. Discharge Planning 5-7 days, pending Neurology recommendations. Recommended minimum 5 plasma exchanges QOD- 09/21, 09/23, 09/25, 09/27, 09/30 PT: [facility] OT: no OT needed ST: Will continue to evaluate if patient will require continued speech therapy on discharge dw Dr. Doherty (Thelma Walters MD R2) Attending Attestation Case reviewed and discussed with the resident team. Agree with plan of care as discussed with me and documented in the resident note. (Chris Doherty MD) Problem List: (1) Myasthenia gravis with acute exacerbation Status: Acute Plan: Presented with dysarthria and dysphagia. Home medicines pyridostigmine and azathioprine. Consulted Neurology, Heme Onc (follows outpatient with Dr. Garcia). RIJ placed 09/20/16 by IR. Plan -Continued dysphagia -Diet: Pureed, nectar thickened liquids, heart healthy per ST 09/24 -Continue Regenol 4mg IV TID Hold Azathioprine 25mg PO BID Neurology and Hematology consulted -Plasmapheresis qod x5. -Last plasmapheresis scheduled for 2/2 -PT/ST/Case management consulted - Suction PRN (2) Conjunctivitis Status: Acute Plan: Acute conjunctivitis Will try erythromycin ointment 1 g QID x 5-7 days (3) HTN (hypertension) Status: Chronic Plan: History of anxiety - Clonidine Patch 0.1mg Q7days (4) Constipation Status: Chronic Plan: Hx constipation, multiple SBO, s/p multiple surgeries, including partial colectomy for metastatic colon cancer. Continue Colace 100mg BID Milk of magnesium 30 mL BID PRN constipation (5) Hx of malignant neoplasm of prostate Status: Chronic Plan: -Leuprolide 45mg INJ every other week (6) Anxiety Status: Chronic Plan: Home 0.25 Xanax q4h, uses sparingly. Held on admission. Continue to monitor (7) Nutrition, metabolism, and development symptoms Status: Chronic Plan: Fluids: DC IV fluids, tolerating PO Electrolytes: Mild hypokalemia of 3.2 this AM, repleted with KCl 40meq, continue to monitor and replete as needed Diet: Pureed, nectar thickened liquids, heart healthy diet DVT prophylaxis: SCDs, heparin prophylaxis placed on hold as plasma exchange can produce a predictable decrease in blood coagulation factors that may predispose to bleeding. OOB with assistance (Thelma Walters MD R2) Problem Qualifiers (1) Conjunctivitis: Qualified Code: H10.31 - Acute conjunctivitis of right eye, unspecified acute conjunctivitis type (2) HTN (hypertension): Qualified Code: I10 - Essential hypertension (3) Constipation: Qualified Code: K59.01 - Slow transit constipation Thelma Walters MD R2 Sep 25, 2016 10:29 Chris Doherty MD Sep 26, 2016 13:10
[2016-09-25] MEDS: ERYTHROMYCIN 0.5% OPTH OINT 1 GM TUBO RIGHT EYE SCH ×3 (18:00→23:02)
[2016-09-25] MEDS: DOCUSATE SODIUM 100 MG CAP PO SCH (22:52)
[2016-09-25] MEDS: azaTHIOprine 50 MG TAB PO SCH (22:53)
[2016-09-26] VITALS (14 sets, daily range): BP systolic 121–167; BP diastolic 41–95; PULSE 62–75; RESP 14–19; TEMP 95.1–98; O2SAT 95–100
[2016-09-26 06:18] LABS: BICARBONATE 24.1 MEQ/L (21.0-32.0); POTASSIUM 3.3 MEQ/L (3.5-5.1)
[2016-09-26 06:30] LABS: HEMATOCRIT 31.1 % (39.0-51.0); MEAN CELL VOLUME 84.9 FL (80.0-100.0); PLATELET COUNT 76 TH/MM3 (150-450); RED BLOOD COUNT 3.66 MIL/MM3 (4.50-5.90); RED CELL DISTRIBUTION WIDTH 16.3 % (11.6-17.2); WHITE BLOOD COUNT 2.4 TH/MM3 (4.0-11.0)
[2016-09-26 06:33] LABS: APTT (PATIENT) 41.6 SEC (24.3-30.1); INTERNATIONAL NORMALIZED RATIO 1.3 RATIO; PROTHROMBIN TIME - PATIENT 14.2 SEC (9.8-11.6)
[2016-09-26 06:59] LABS: REVIEW FLAG FINAL
[2016-09-26] MEDS: DOCUSATE SODIUM 100 MG CAP PO SCH ×2 (08:12→21:43)
[2016-09-26] MEDS: azaTHIOprine 50 MG TAB PO SCH ×2 (08:12→21:43)
[2016-09-26] MEDS: PYRIDOSTIGMINE INJ 10 MG/2 ML AMP IV PUSH SCH ×3 (08:13→18:00)
[2016-09-26] MEDS: SODIUM CHLORIDE 0.9% FLUSH 5 ML FLUSH FLUSH SCH ×2 (09:00→21:48)
--- NOTE | 2016-09-26 09:07 | HHI.FPPN ---
Subjective Remarks Overnight, no acute events. Afebrile. Hypertensive to 160/70. Eating is improved- able to tolerate purees, still having trouble with liquids Voiding with low UOP at 600mL. Urine in bedside urinal in room looks clear and only mildly concentrated. Difficulty stooling with constipation x2 days. Requests [email or web address] which worked for him at home Ambulating OOB without difficulty. Reports speech and swallowing having improved only slightly, not yet back to baseline. Will do PEX #4 tomorrow. He does not like the ointment for his R eye cellulitis as he has blurry vision for hours and is unable to read. Denies fevers/chills, nausea/vomiting, SOB/chest pain, abdominal or leg pain. ( Yulissa Paul MD R1) Objective Vitals Vital Signs Date Time Temp Pulse Resp B/P Pulse Ox O2 Delivery O2 Flow Rate FiO2 09/26/16 04:48 97.1 69 17 161/76 95 09/26/16 01:45 96.9 68 14 157/72 96 09/26/16 00:30 97.5 67 14 156/71 96 09/26/16 00:15 97.5 71 14 148/95 96 09/26/16 00:05 96.6 66 14 162/69 96 09/26/16 00:01 97.2 64 14 149/69 96 09/26/16 00:00 97.6 69 16 147/67 97 09/25/16 20:00 97.2 77 17 134/62 96 09/25/16 20:00 66 09/25/16 20:00 Room Air 21 09/25/16 20:00 66 09/25/16 19:42 67 09/25/16 16:39 96.8 68 19 160/67 97 09/25/16 12:00 97.5 81 18 143/65 99 09/25/16 09:35 95 21 I/O 09/25/16 09/25/16 09/25/16 09/26/16 09/26/16 09/26/16 07:00 15:00 23:00 07:00 15:00 23:00 Intake Total 625 ml 120 ml 370 ml Output Total 600 ml Balance 625 ml 120 ml -230 ml Intake Oral 625 ml 120 ml 120 ml Cryoprecipitate 250 ml Output Urine Total 600 ml # Voids 3 4 # Bowel Movements 1 0 (Yulissa Paul MD R1) Result Diagram: 09/26/16 0536 09/26/16 0536 Imaging Last Impressions Chest X-Ray 09/20/16 0239 Signed Impressions: Service Date/Time: Tuesday, September 20, 2016 03:04 - CONCLUSION: No acute disease. No significant change has occurred. Reece Peters MD Catheter Placement X-Ray 09/20/16 0000 Signed Impressions: Service Date/Time: Tuesday, September 20, 2016 10:48 - CONCLUSION: Uncomplicated line placement as above. Catheter functions well and is ready for use. Agustin Guajardo Jr., MD Objective Remarks CONST: male sitting up comfortably in chair, in NAD. Slightly slurred speech, but comprehensible. HEENT: Poor usp with multiple missing teeth. Erythema of R eyelid and skin margin. Conjunctiva clear. Ptosis of R eyelid. PERRL. EOMI. MMM RESP: Lungs CTAB. No wheezes. CV: RRR. No murmur appreciated. GI: Soft non-tender, non-distended. No masses. +BS. R ventral hernia. MSK: Muscle tone symmetrical, appropriate. NEURO: Speech slowed, dysarthric. Strength 5/5 upper and lower extremities. Extremities neurovascularly intact. PSYCH: Affect appropriate. Good insight. Procedures 09/20- RIJ catheter placed 09/21, 09/23, 09/25- Plasmapheresis (Yulissa Paul MD R1) Urinary Catheter: No (Yulissa Paul MD R1) Vascular Central Line Catheter: Yes Assessment to: Continue Date of Insertion: Sep 20, 2016 Line: Central Venous Catheter Side: Right Location: Internal, Jugular (Yulissa Paul MD R1) A/P Assessment and Plan 85y male with myasthenia gravis, metastatic colon cancer, and metastatic prostate cancer, presented with dysarthria and dysphagia, admitted 09/19/16 for myasthenia gravis exacerbation. Discharge Planning 3+ days, pending Neurology recommendations. Recommended minimum 5 plasma exchanges QOD- 09/21, 09/23, 09/25, 09/27, 09/29 PT: [facility] OT: No OT needed ST: Will continue to evaluate if patient will require continued speech therapy on discharge SDW: Dr. Doherty (Yulissa Paul MD R1) Attending Attestation Patient seen and examined. Case reviewed and discussed with the resident team. Agree with plan of care as discussed with me and documented in the resident note. (Chris Doherty MD) Problem List: (1) Myasthenia gravis with acute exacerbation Status: Acute Plan: Presented with dysarthria and dysphagia. Home medicines pyridostigmine and azathioprine. Consulted Neurology, Heme Onc (follows outpatient with Dr. Garcia). RIJ placed 09/20/16 by IR. Plan -Continued dysphagia -Diet: Continue pureed, nectar thickened liquids, heart healthy per ST -Speech therapy will continue to evaluate daily for recommendations for inpt and outpt stay -Continue Regenol 4mg IV TID Hold Azathioprine 25mg PO BID until pt able to swallow pills Neurology and Hematology consulted -Plasmapheresis qod x5. -Last plasmapheresis scheduled for 09/29 -PT/ST/Case management consulted -Suction PRN (2) HTN (hypertension) Status: Chronic Plan: History of anxiety - Clonidine Patch 0.1mg Q7days (3) Blepharitis Status: Acute Plan: Erythema of upper lid > lower lid. Conjunctiva not-injected. Ptosis R eye. Plan -Pt did not tolerate ointment- made it difficult to see, dosed QID -Discontinue Erythromycin ointment 1g QID x 5-7 days (09/25-09/26 ) -Erythromycin solution not in formulary -Start Gentamicin 0.3% solution 1 drop q4h while awake, R eye x5 days (09/26- ) (4) Constipation Status: Chronic Plan: Hx constipation, multiple SBO, s/p multiple surgeries, including partial colectomy for metastatic colon cancer. Home Benefiber, not in formulary. Plan Continue Colace 100mg BID Milk of magnesium 30 mL BID PRN constipation -Start Metamucil powder 1 packet daily, mixed into 8oz water or applesauce, pudding, or other thickened liquid/puree (5) Fibrinogen decreased Status: Acute Plan: Admitted with fibrinogen 223, decreased to low of 81. Likely secondary to plasmapheresis S/p 1 unit cryoprecipitate 09/25 per Hematology Oncology -Daily fibrinogen (6) Thrombocytopenia Status: Chronic Plan: Platelets 131k on admission, 72k today. Moderate thrombocytopenia. -Heparin prophylaxis placed on hold as plasma exchange can produce a predictable decrease in blood coagulation factors that may predispose to bleeding -Daily CBC, continue to monitor -Consider platelet transfusion if spontaneous bleeding, platelets <30k, or per Heme Onc recommendations to tolerate plasmapheresis (7) Hypokalemia Status: Acute Plan: K 3.3 today -Continue to monitor and replete, as needed (8) Hx of malignant neoplasm of prostate Status: Chronic Plan: -Leuprolide 45mg INJ every other week (9) Anxiety Status: Chronic Plan: Home 0.25 Xanax q4h, uses sparingly. Held on admission. Continue to monitor (10) Vitamin B 12 deficiency Status: Chronic Plan: -Received monthly Vit B12 shot 09/22/16 (11) Nutrition, metabolism, and development symptoms Status: Chronic Plan: Fluids: Per PO Electrolytes: Mild hypokalemia of 3.3 this AM, repleted with KCl 30meq, continue to monitor and replete as needed Diet: Pureed, nectar thickened liquids, heart healthy diet DVT prophylaxis: SCDs, heparin prophylaxis placed on hold as plasma exchange can produce a predictable decrease in blood coagulation factors that may predispose to bleeding GI prophylaxis: not indicated OOB with assistance (Yulissa Paul MD R1) Problem Qualifiers (1) HTN (hypertension): Qualified Code: I10 - Essential hypertension (2) Blepharitis: Qualified Code: H01.001 - Blepharitis of both upper and lower eyelid of right eye, unspecified type (3) Constipation: Qualified Code: K59.01 - Slow transit constipation Yulissa Paul MD R1 Sep 26, 2016 09:07 Chris Doherty MD Sep 26, 2016 19:39
[2016-09-26] MEDS ORDERED: POTASSIUM CHLORIDE 10 MEQ CONTROLLED RELEASE TAB PO ONE (09:15)
[2016-09-26] MEDS: PSYLLIUM FIBER SF/GF 6 GM POWD PKT PO SCH (13:00)
--- NOTE | 2016-09-26 14:14 | HHI.FPPN ---
Addendum to progress note ADDENDUM Reason for addendum: Additonal documentation Additional information TRANSFER SERVICE NOTE 85 year-old male with myasthenia gravis, metastatic colon cancer, and metastatic prostate cancer admitted 09/19/16 for myasthenia gravis exacerbation. Apart from dysarthria and dysphagia, neurological exam otherwise grossly within normal limits. Home medications for MG include pyridostigmine and azathioprine. Due to difficulty swallowing, pyridostigmine PO has been converted to equivalent Regonol 4mg IV q8h. Azathioprine currently held and should be re- started when patient able to swallow pills. Pt follows outpatient Heme Onc with Dr. Garcia. As inpatient, Neurology and Heme Onc were consulted. Minimum five episodes plasmapheresis was planned (09/21 , 09/23, 09/25, 09/27, 09/29) with access via R internal jugular catheter (placed ). There was also discussion of trial of steroids, but patient had poor response to this in the past and Neurology wanted to go slow and keep patient inpatient for trial, which has not yet been done. Pt had similar symptoms 8 months ago and had almost immediate response to first episode of plasmapheresis to the point he finished remainer of treatments as outpatient. Recovery has been markedly slower this hospitalization. Hospital course was complicated by HTN managed with clonidine patch, blepharitis of R eye tx Gentamicin eye drops, hypokalemia, low fibrinogen, and thrombocytopenia. PT is seeing pt 3x/week and has recommended home with home health, OT stated no OT needed, ST are continuing to see on daily basis and give diet recommendations. Anticipate discharge pending Neurology and Heme Onc recommendations sometime in days following 09/29. DW: Yulissa Garza MD R1 Sep 26, 2016 14:14
[2016-09-26] MEDS: GENTAMICIN SULFATE 0.3% OPHT SOLN 5 ML BTL RIGHT EYE SCH ×2 (16:00→21:43)
[2016-09-27] MEDS: ALPRAZolam 0.25 MG TAB PO PRN (02:06)
[2016-09-27] MEDS: GENTAMICIN SULFATE 0.3% OPHT SOLN 5 ML BTL RIGHT EYE SCH ×6 (04:00→22:32)
[2016-09-27 04:19] VITALS: BP 131/61; PULSE 66; RESP 17; TEMP 98; O2SAT 99
[2016-09-27 07:45] LABS: AUTOMATED NEUTROPHIL # 1.6 TH/MM3 (1.8-7.7); BASOPHIL % 1.2 % (0.0-2.0); EOSINOPHIL # 0.2 TH/MM3 (0-0.4); EOSINOPHIL % 6.4 % (0.0-4.0); HEMATOCRIT 32.5 % (39.0-51.0); LYMPH % 13.8 % (9.0-44.0); LYMPHOCYTE # 0.3 TH/MM3 (1.0-4.8); MEAN CELL VOLUME 84.8 FL (80.0-100.0); MEAN CORPUSCULAR HEMOGLOBIN 28.5 PG (27.0-34.0); MEAN CORPUSCULAR HGB CONC 33.7 % (32.0-36.0); MONO % 12.4 % (0.0-8.0); NEUT % 66.2 % (16.0-70.0); PLATELET COUNT 84 TH/MM3 (150-450); RED BLOOD COUNT 3.83 MIL/MM3 (4.50-5.90); RED CELL DISTRIBUTION WIDTH 16.5 % (11.6-17.2); WHITE BLOOD COUNT 2.5 TH/MM3 (4.0-11.0)
[2016-09-27 07:49] LABS: HEMO FLAGS AUTO DIFF
[2016-09-27 07:53] LABS: APTT (PATIENT) 28.9 SEC (24.3-30.1); INTERNATIONAL NORMALIZED RATIO 1.1 RATIO; PROTHROMBIN TIME - PATIENT 12.7 SEC (9.8-11.6)
[2016-09-27 08:00] VITALS: BP 133/63; PULSE 69; RESP 18; TEMP 96.9; O2SAT 94
[2016-09-27 08:19] LABS: BICARBONATE 27.4 MEQ/L (21.0-32.0); POTASSIUM 3.7 MEQ/L (3.5-5.1)
--- NOTE | 2016-09-27 08:21 | HHI.PR ---
Subjective Remarks sp 3 pex and improved after last one #4 today Objective Vital Signs Date Time Temp Pulse Resp B/P Pulse Ox O2 Delivery O2 Flow Rate FiO2 09/27/16 04:19 98.0 66 17 131/61 99 09/26/16 23:44 97.4 67 16 162/72 98 09/26/16 21:00 62 09/26/16 21:00 Room Air 09/26/16 21:00 62 09/26/16 20:00 98.0 72 16 121/58 97 09/26/16 16:00 95.6 73 19 143/64 100 09/26/16 12:35 97.8 72 19 167/75 96 09/26/16 08:20 97 21 I/O 09/26/16 09/26/16 09/26/16 09/27/16 09/27/16 09/27/16 07:00 15:00 23:00 07:00 15:00 23:00 Intake Total 370 ml 600 ml 240 ml 120 ml Output Total 600 ml 600 ml 400 ml Balance -230 ml 600 ml -360 ml -280 ml Intake Oral 120 ml 600 ml 240 ml 120 ml Cryoprecipitate 250 ml Output Urine Total 600 ml 600 ml 400 ml # Voids 4 # Bowel Movements 2 Result Diagram: 09/27/16 0652 09/27/16 0652 Objective Remarks voice a lot better this am and eye closure weak jeff r eye this am no change there neck flex nl buccalimproved bp up rx patch for now still Assessment and Plan Assessment and Plan imp mg pex sp #3 sat watch bulbar fxt no sob and not sx below neck today eating now oob can hep lock while oob and ambulate on bp control off immuran restart will need extended course of plasma exchange he is doing better will start steroids in am plt dec need heme to comment Mickey Looyla MD Sep 27, 2016 08:21
[2016-09-27 08:47] LABS: PLATELET ESTIMATE SMEAR LOW (NORMAL); PLATELET MORPHOLOGY NORMAL (NORMAL); SCAN/DIFF AUTO DIFF CONFIRMED
--- NOTE | 2016-09-27 09:02 | HHI.FPPN ---
Subjective Remarks Patient seen and examined this morning. Did get dose of home xanax overnight due to difficulty sleeping. Denies any complaints/concerns this morning. Is eating well, states swallowing is improved. Is up walking around several times a day without difficulty. States his eye infection is improving. Denies fever/ chills, nausea/vomiting, chest pain, SOB, abdominal pain, leg pain. Is due for 4th PEX today. (Corey Mondragon MD R1) Objective Vitals Vital Signs Date Time Temp Pulse Resp B/P Pulse Ox O2 Delivery O2 Flow Rate FiO2 09/27/16 04:19 98.0 66 17 131/61 99 09/26/16 23:44 97.4 67 16 162/72 98 09/26/16 21:00 62 09/26/16 21:00 Room Air 09/26/16 21:00 62 09/26/16 20:00 98.0 72 16 121/58 97 09/26/16 16:00 95.6 73 19 143/64 100 09/26/16 12:35 97.8 72 19 167/75 96 I/O 09/26/16 09/26/16 09/26/16 09/27/16 09/27/16 09/27/16 07:00 15:00 23:00 07:00 15:00 23:00 Intake Total 370 ml 600 ml 240 ml 120 ml Output Total 600 ml 600 ml 400 ml Balance -230 ml 600 ml -360 ml -280 ml Intake Oral 120 ml 600 ml 240 ml 120 ml Cryoprecipitate 250 ml Output Urine Total 600 ml 600 ml 400 ml # Voids 4 # Bowel Movements 2 (Corey Mondragon MD R1) Result Diagram: 09/27/16 0652 09/27/16 0652 Objective Remarks CONST: male sitting up comfortably in chair, in NAD, eating pureed food without difficulty. Comprehensible speech HEENT: Poor custodial with multiple missing teeth. Conjunctiva clear. Ptosis of R eyelid. PERRL. EOMI. MMM RESP: Lungs CTAB. No wheezes. CV: RRR. No murmur appreciated. GI: Soft non-tender, non-distended. No masses. +BS. R ventral hernia. MSK: Muscle tone symmetrical, appropriate. NEURO: Speech slowed, dysarthric. Strength 5/5 upper and lower extremities. Extremities neurovascularly intact. PSYCH: Affect appropriate. Good insight. Procedures 09/20- RIJ catheter placed 09/21, 09/23, 09/25- Plasmapheresis (Corey Mondragon MD R1) Date of Insertion: Sep 20, 2016 Line: Central Venous Catheter Side: Right Location: Internal, Jugular (Corey Mondragon MD R1) A/P Assessment and Plan 85y male with myasthenia gravis, metastatic colon cancer, and metastatic prostate cancer, presented with dysarthria and dysphagia, admitted 09/19/16 for myasthenia gravis exacerbation. Discharge Planning Pending Neurology recommendations. Recommended minimum 5 plasma exchanges QOD- 09/21, 09/23, 09/25, 09/27, 09/29 PT: [facility] OT: No OT needed ST: Will continue to evaluate if patient will require continued speech therapy on discharge WDW: Dr. Doherty (Corey Mondragon MD R1) Attending Attestation Case reviewed and discussed with the resident team. Agree with plan of care as discussed with me and documented in the resident note. (Chris Doherty MD) Problem List: (1) Myasthenia gravis with acute exacerbation Status: Acute Plan: Presented with dysarthria and dysphagia. Home medicines pyridostigmine and azathioprine. Consulted Neurology, Heme Onc (follows outpatient with Dr. Garcia). RIJ placed 09/20/16 by IR. Plan -Continued dysphagia -Diet: Continue pureed, nectar thickened liquids, heart healthy per ST -Speech therapy will continue to evaluate daily for recommendations for inpt and outpt stay -Continue Regenol 4mg IV TID Hold Azathioprine 25mg PO BID until pt able to swallow pills Neurology and Hematology consulted -Plasmapheresis qod x5. -Last plasmapheresis scheduled for 09/29 -PT/ST/Case management consulted -Suction PRN (2) HTN (hypertension) Status: Chronic Plan: History of anxiety - Clonidine Patch 0.1mg Q7days (3) Blepharitis Status: Acute Plan: Erythema improved. Conjunctiva not-injected. Ptosis R eye. Plan -Pt did not tolerate ointment- made it difficult to see, dosed QID -s/p Erythromycin ointment 1g QID x 5-7 days (09/25-09/26 ) -Continue Gentamicin 0.3% solution 1 drop q4h while awake, R eye x5 days (09/26- ) (4) Constipation Status: Chronic Plan: Hx constipation, multiple SBO, s/p multiple surgeries, including partial colectomy for metastatic colon cancer. Home Benefiber, not in formulary. Plan Continue Colace 100mg BID Milk of magnesium 30 mL BID PRN constipation -Start Metamucil powder 1 packet daily, mixed into 8oz water or applesauce, pudding, or other thickened liquid/puree (5) Fibrinogen decreased Status: Acute Plan: Admitted with fibrinogen 223, decreased to low of 81. Likely secondary to plasmapheresis S/p 1 unit cryoprecipitate 09/25 per Hematology Oncology -Daily fibrinogen (6) Thrombocytopenia Status: Chronic Plan: Platelets 131k on admission, 84k today. Moderate thrombocytopenia. -Heparin prophylaxis placed on hold as plasma exchange can produce a predictable decrease in blood coagulation factors that may predispose to bleeding -Daily CBC, continue to monitor -Consider platelet transfusion if spontaneous bleeding, platelets <30k, or per Heme Onc recommendations to tolerate plasmapheresis (7) Hypokalemia Status: Acute Plan: K 3.7 today -Continue to monitor and replete, as needed (8) Hx of malignant neoplasm of prostate Status: Chronic Plan: -Leuprolide 45mg INJ every other week (9) Anxiety Status: Chronic Plan: Home 0.25 Xanax q4h, uses sparingly. Held on admission. Continue to monitor (10) Vitamin B 12 deficiency Status: Chronic Plan: -Received monthly Vit B12 shot 09/22/16 (11) Nutrition, metabolism, and development symptoms Status: Chronic Plan: Fluids: Per PO Electrolytes: Mild hypokalemia of 3.3 this AM, repleted with KCl 30meq, continue to monitor and replete as needed Diet: Pureed, nectar thickened liquids, heart healthy diet DVT prophylaxis: SCDs, heparin prophylaxis placed on hold as plasma exchange can produce a predictable decrease in blood coagulation factors that may predispose to bleeding GI prophylaxis: not indicated OOB with assistance (Corey Mondragon MD R1) Problem Qualifiers (1) HTN (hypertension): Qualified Code: I10 - Essential hypertension (2) Blepharitis: Qualified Code: H01.001 - Blepharitis of both upper and lower eyelid of right eye, unspecified type (3) Constipation: Qualified Code: K59.01 - Slow transit constipation Corey Mondragon MD R1 Sep 27, 2016 09:02 Chris Doherty MD Sep 27, 2016 15:01
[2016-09-27] MEDS: DOCUSATE SODIUM 100 MG CAP PO SCH ×2 (09:06→22:28)
[2016-09-27] MEDS: PSYLLIUM FIBER SF/GF 6 GM POWD PKT PO SCH (09:07)
[2016-09-27] MEDS: azaTHIOprine 50 MG TAB PO SCH ×2 (09:07→22:28)
[2016-09-27] MEDS: SODIUM CHLORIDE 0.9% FLUSH 5 ML FLUSH FLUSH SCH ×2 (09:09→22:29)
--- NOTE | 2016-09-27 09:34 | PD.ONC.PN ---
Subjective Subjective Remarks Afebrile overnight. Pt sitting on side of bed talking with nurse. No bleeding. He states he feels pretty good today. He feels like his swallowing is back to baseline but he is still taking in pureed foods. He's hoping to have speech therapy clear him for a regular diet soon. Objective Data Date Time Temp Pulse Resp B/P Pulse Ox O2 Delivery O2 Flow Rate FiO2 09/27/16 08:00 96.9 69 18 133/63 94 09/27/16 04:19 98.0 66 17 131/61 99 09/26/16 23:44 97.4 67 16 162/72 98 09/26/16 21:00 62 09/26/16 21:00 Room Air 09/26/16 21:00 62 09/26/16 20:00 98.0 72 16 121/58 97 09/26/16 16:00 95.6 73 19 143/64 100 09/26/16 12:35 97.8 72 19 167/75 96 Result Diagram: 09/27/16 0652 09/27/16 0652 Laboratory Results Laboratory Tests Test 09/27/16 06:52 White Blood Count 2.5 TH/MM3 Red Blood Count 3.83 MIL/MM3 Hemoglobin 10.9 GM/DL Hematocrit 32.5 % Mean Corpuscular Volume 84.8 FL Mean Corpuscular Hemoglobin 28.5 PG Mean Corpuscular Hemoglobin 33.7 % Concent Red Cell Distribution Width 16.5 % Platelet Count 84 TH/MM3 Mean Platelet Volume 8.9 FL Neutrophils (%) (Auto) 66.2 % Lymphocytes (%) (Auto) 13.8 % Monocytes (%) (Auto) 12.4 % Eosinophils (%) (Auto) 6.4 % Basophils (%) (Auto) 1.2 % Neutrophils # (Auto) 1.6 TH/MM3 Lymphocytes # (Auto) 0.3 TH/MM3 Monocytes # (Auto) 0.3 TH/MM3 Eosinophils # (Auto) 0.2 TH/MM3 Basophils # (Auto) 0.0 TH/MM3 CBC Comment AUTO DIFF Differential Comment AUTO DIFF CONFIRMED Platelet Estimate LOW Platelet Morphology Comment NORMAL Red Cell Morphology Comment NORMAL Prothrombin Time 12.7 SEC Prothromb Time International 1.1 RATIO Ratio Activated Partial 28.9 SEC Thromboplast Time Fibrinogen 130 mg/dL Sodium Level 142 MEQ/L Potassium Level 3.7 MEQ/L Chloride Level 108 MEQ/L Carbon Dioxide Level 27.4 MEQ/L Anion Gap 7 MEQ/L Blood Urea Nitrogen 8 MG/DL Creatinine 0.69 MG/DL Estimat Glomerular Filtration 109 ML/MIN Rate Random Glucose 98 MG/DL Calcium Level 8.8 MG/DL Administered Medications Medications (Trade) Dose Ordered Sig/Brock Route PRN Reason Start Time Stop Time Status Last Admin Dose Admin Azathioprine (Imuran) 25 mg BID PO 09/20/16 09:00 09/27/16 09:07 Docusate Sodium (Colace) 100 mg BID PO 09/20/16 09:00 09/27/16 09:06 IV Flush (NS Flush) 2 ml BID FLUSH 09/20/16 09:00 09/27/16 09:09 Magnesium Hydroxide (Milk Of Magnrocio Liq) 30 ml Q12H PRN PO CONSTIPATION 09/20/16 02:45 09/26/16 21:48 Heparin Sodium (Porcine) (Heparin Inj) 5,000 units Q12H SQ 09/20/16 02:45 Hold 09/20/16 15:20 Clonidine (Catapres-Tts 0.1mg Patch.7d) 1 patch Q7D TD 09/23/16 09:00 09/23/16 09:06 Psyllium Hydrophilic Mucilloid (Metamucil Smooth Texture Sf/ Gf Pkt) 1 pkt DAILY PO 09/26/16 13:00 09/27/16 09:07 Gentamicin Sulfate (Gentamicin Opht 0.3% Soln) 1 drop Q4HR RIGHT EYE 09/26/16 16:00 09/27/16 09:07 Alprazolam (Xanax) 0.25 mg HS PRN PO SLEEP 09/27/16 01:45 09/27/16 02:06 Objective Remarks GENERAL: Elderly male, sitting on side of bed in no distress. SKIN: Warm and dry. Port in place to R chest. No oozing. HEAD: Normocephalic. EYES: No injection or drainage. NECK: Supple, trachea midline. CARDIOVASCULAR: +S1/S2. No murmur appreciated. RESPIRATORY: Lungs clear throughout. Breathing unlabored. GASTROINTESTINAL: Abdomen soft, non-tender, nondistended. EXTREMITIES: No edema. SCD's to BLE. MUSCULOSKELETAL: Uses walker; walks laps around nursing unit. NEUROLOGICAL: A&Ox3. Normal speech. Moving all extremities. Assessment/Plan Problem List: (1) Myasthenia gravis Status: Chronic Plan: 09/27/16: PEX #4 today. Platelets 84k today. Up from 76k yesterday. Received 1 unit cryo over the weekend. Fibrinogen 130 today. He is overall improving. 09/25/15: PEX #3. [id number]. will give 1 unit cryo today after PEX 09/24/15: Second plasma exchange yesterday. He states his swallowing and speech seem improved today. Plan for exchange #3 tomorrow. Continue supportive care, PT. 09/23/16 Had second plasma phereses today . He is feeling somewhat better. continue pheresis QOD 09/22/16: Had 1st plasma exchange yesterday. Still c/o trouble swallowing. Speech therapy following. He should get exchange #2 tomorrow. 09/21/16: proceed with day 1 of PEX. monitor CBC, coags, calcium --heparin prophylaxis placed on hold as plasma exchange can produce a predictable decrease in blood coagulation factors that may predispose to bleeding. --PEX QOD x 5 total doses. (2) Vitamin B 12 deficiency Status: Chronic Plan: -- Monitor -- Rec'd monthly injection on 09/22. Assessment 85y/o male with myasthenia gravis admitted with exacerbation. Hematology consulted to coordinate plasma exchange qod x 5. Plan 1. PEX #4 today. 2. Daily labs. 3. Supportive care. Attending Statement feels better. Both swallowing and speech are almost back to normal. Pheresis #4 today. The exam, history, and the medical decision-making described in the above note were completed with the assistance of the mid-level provider. I reviewed and agree with the findings presented. I attest that I had a [id number] encounter with the patient on the same day, and personally performed and documented my assessment and findings in the medical record. Halle Deng Sep 27, 2016 09:33 Gabriel Garcia MD Sep 28, 2016 09:23
[2016-09-27] MEDS: PYRIDOSTIGMINE BROMIDE 60 MG TAB PO SCH ×2 (11:58→15:23)
[2016-09-27 12:00] VITALS: BP 126/59; PULSE 75; RESP 18; TEMP 97.1; O2SAT 99
[2016-09-27] MEDS: SODIUM CHLOR 0.9% 1000 ML IV SCH (15:00)
[2016-09-27] MEDS: ALBUMIN HUMAN 5% 25 GM/500 ML BOTTLE IV SCH (15:00)
[2016-09-27] MEDS: CALCIUM GLUCONATE INJ 4 GM in SODIUM CHLOR 0.9% 250 ML INJ 200 ML IV SCH (15:00)
[2016-09-27] MEDS: ANTICOAGULANT CITRATE DEXTROSE SOLN-A 1L OTHER SCH (15:00)
[2016-09-27 15:51] VITALS: BP 123/59; PULSE 71; RESP 18; TEMP 96.3; O2SAT 100
[2016-09-27 18:06] VITALS: PULSE 58
[2016-09-27] MEDS: HEPARIN SODIUM - SQ 10,000 UNITS/ML VIAL SQ SCH (18:31)
[2016-09-27 21:00] VITALS: BP 124/59; PULSE 63; RESP 20; TEMP 96.7; O2SAT 100
[2016-09-28] VITALS (9 sets, daily range): BP systolic 119–162; BP diastolic 56–77; PULSE 55–89; RESP 16–22; TEMP 95.8–98.6; O2SAT 95–98
[2016-09-28] MEDS: ALPRAZolam 0.25 MG TAB PO PRN (02:23)
[2016-09-28] MEDS: GENTAMICIN SULFATE 0.3% OPHT SOLN 5 ML BTL RIGHT EYE SCH ×6 (04:00→23:21)
[2016-09-28 07:46] LABS: AUTOMATED NEUTROPHIL # 1.6 TH/MM3 (1.8-7.7); BASOPHIL % 0.7 % (0.0-2.0); EOSINOPHIL # 0.2 TH/MM3 (0-0.4); EOSINOPHIL % 7.7 % (0.0-4.0); HEMATOCRIT 30.8 % (39.0-51.0); LYMPHOCYTE # 0.3 TH/MM3 (1.0-4.8); MEAN CELL VOLUME 84.8 FL (80.0-100.0); MEAN CORPUSCULAR HEMOGLOBIN 28.1 PG (27.0-34.0); MEAN CORPUSCULAR HGB CONC 33.1 % (32.0-36.0); MONO % 13.5 % (0.0-8.0); NEUT % 66.1 % (16.0-70.0); PLATELET COUNT 82 TH/MM3 (150-450); RED BLOOD COUNT 3.63 MIL/MM3 (4.50-5.90); RED CELL DISTRIBUTION WIDTH 16.7 % (11.6-17.2); WHITE BLOOD COUNT 2.3 TH/MM3 (4.0-11.0)
[2016-09-28 07:49] LABS: HEMO FLAGS AUTO DIFF
--- NOTE | 2016-09-28 08:22 | HHI.PR ---
Subjective Remarks sp 4 pex and much improved Objective Vital Signs Date Time Temp Pulse Resp B/P Pulse Ox O2 Delivery O2 Flow Rate FiO2 09/28/16 06:19 96.4 67 18 130/59 97 09/28/16 03:21 Room Air 09/28/16 00:00 96.9 66 18 162/75 98 09/27/16 21:00 96.7 63 20 124/59 100 09/27/16 18:06 58 09/27/16 15:51 96.3 71 18 123/59 100 09/27/16 12:00 97.1 75 18 126/59 99 I/O 09/27/16 09/27/16 09/27/16 09/28/16 09/28/16 09/28/16 07:00 15:00 23:00 07:00 15:00 23:00 Intake Total 120 ml Output Total 400 ml 250 ml Balance -280 ml -250 ml Intake Oral 120 ml Output Urine Total 400 ml 250 ml # Bowel Movements 0 Result Diagram: 09/28/16 0705 09/27/16 0652 Objective Remarks voice a lot better near nl now this am and eye closure better buccal near nl improved Assessment and Plan Assessment and Plan imp mg pex sp #5 tomorrow bulbar fxt much better eating now solids well oob can hep lock while oob and ambulate better bp control immuran will need extended course of plasma exchange he is doing better steroids 30mg today will inc tomorrow plt watch stable plan is to put on steroids to day and inc tomorrow and continue pex for at least 7 sessions he could do some outpatient if he tolerates steroids ok over next few days Mickey Loyola MD Sep 28, 2016 08:22
[2016-09-28 08:58] LABS: PLATELET ESTIMATE SMEAR LOW (NORMAL); PLATELET MORPHOLOGY NORMAL (NORMAL); SCAN/DIFF AUTO DIFF CONFIRMED
[2016-09-28] MEDS: SODIUM CHLORIDE 0.9% FLUSH 5 ML FLUSH FLUSH SCH ×2 (09:00→23:21)
[2016-09-28] MEDS: FAMOTIDINE 20 MG TAB PO SCH ×2 (10:15→23:19)
[2016-09-28] MEDS: CALCIUM CARBONATE 500 MG CHEWABLE TAB CHEW SCH (10:16)
[2016-09-28] MEDS: predniSONE 20 MG TAB PO SCH (10:17)
[2016-09-28] MEDS: DOCUSATE SODIUM 100 MG CAP PO SCH ×2 (10:18→23:19)
[2016-09-28] MEDS: PSYLLIUM FIBER SF/GF 6 GM POWD PKT PO SCH (10:18)
[2016-09-28] MEDS: azaTHIOprine 50 MG TAB PO SCH ×2 (10:18→23:20)
--- NOTE | 2016-09-28 10:20 | PD.ONC.PN ---
Subjective Subjective Remarks Afebrile overnight. patient talking and swallowing much better. Denies bleeding. Objective Data Date Time Temp Pulse Resp B/P Pulse Ox O2 Delivery O2 Flow Rate FiO2 09/28/16 08:00 96.2 71 16 120/56 98 09/28/16 06:19 96.4 67 18 130/59 97 09/28/16 03:21 Room Air 09/28/16 00:00 96.9 66 18 162/75 98 09/27/16 21:00 96.7 63 20 124/59 100 09/27/16 18:06 58 09/27/16 15:51 96.3 71 18 123/59 100 09/27/16 12:00 97.1 75 18 126/59 99 09/28/16 09/28/16 09/28/16 07:00 15:00 23:00 Output Total 250 ml Balance -250 ml Result Diagram: 09/28/16 0705 09/27/16 0652 Laboratory Results Laboratory Tests Test 09/28/16 07:05 White Blood Count 2.3 TH/MM3 Red Blood Count 3.63 MIL/MM3 Hemoglobin 10.2 GM/DL Hematocrit 30.8 % Mean Corpuscular Volume 84.8 FL Mean Corpuscular Hemoglobin 28.1 PG Mean Corpuscular Hemoglobin 33.1 % Concent Red Cell Distribution Width 16.7 % Platelet Count 82 TH/MM3 Mean Platelet Volume 8.9 FL Neutrophils (%) (Auto) 66.1 % Lymphocytes (%) (Auto) 12.0 % Monocytes (%) (Auto) 13.5 % Eosinophils (%) (Auto) 7.7 % Basophils (%) (Auto) 0.7 % Neutrophils # (Auto) 1.6 TH/MM3 Lymphocytes # (Auto) 0.3 TH/MM3 Monocytes # (Auto) 0.3 TH/MM3 Eosinophils # (Auto) 0.2 TH/MM3 Basophils # (Auto) 0.0 TH/MM3 CBC Comment AUTO DIFF Differential Comment AUTO DIFF CONFIRMED Platelet Estimate LOW Platelet Morphology Comment NORMAL Red Cell Morphology Comment NORMAL Fibrinogen 67 mg/dL Administered Medications Medications (Trade) Dose Ordered Sig/Brock Route PRN Reason Start Time Stop Time Status Last Admin Dose Admin Azathioprine (Imuran) 25 mg BID PO 09/20/16 09:00 09/27/16 22:28 Docusate Sodium (Colace) 100 mg BID PO 09/20/16 09:00 09/27/16 22:28 IV Flush (NS Flush) 2 ml BID FLUSH 09/20/16 09:00 09/27/16 22:29 Magnesium Hydroxide (Milk Of Magnrocio Liq) 30 ml Q12H PRN PO CONSTIPATION 09/20/16 02:45 09/26/16 21:48 Heparin Sodium (Porcine) (Heparin Inj) 5,000 units Q12H SQ 09/20/16 02:45 Hold 09/20/16 15:20 Clonidine (Catapres-Tts 0.1mg Patch.7d) 1 patch Q7D TD 09/23/16 09:00 09/23/16 09:06 Psyllium Hydrophilic Mucilloid (Metamucil Smooth Texture Sf/ Gf Pkt) 1 pkt DAILY PO 09/26/16 13:00 09/27/16 09:07 Gentamicin Sulfate (Gentamicin Opht 0.3% Soln) 1 drop Q4HR RIGHT EYE 09/26/16 16:00 09/27/16 22:32 Alprazolam (Xanax) 0.25 mg HS PRN PO SLEEP 09/27/16 01:45 09/28/16 02:23 Pyridostigmine Metcalfe (Mestinon) 120 mg TID@09,12,16 PO 09/27/16 12:00 09/27/16 15:23 Objective Remarks GENERAL: Elderly male, sitting up in bed in nad. SKIN: Warm and dry. vascath in place, right neck, no bleeding or oozing. HEAD: Normocephalic. EYES: No injection or drainage. NECK: Supple, trachea midline. CARDIOVASCULAR: Regular rate and rhythm RESPIRATORY: Breath sounds equal bilaterally. No accessory muscle use. GASTROINTESTINAL: Abdomen soft, non-tender, nondistended. EXTREMITIES: No cyanosis NEUROLOGICAL: No obvious focal deficit. Awake, alert, and oriented x3. Assessment/Plan Problem List: (1) Myasthenia gravis Status: Chronic Plan: 09/28/16: off day. fibrinogen 67. monitor for bleeding. Give 1 unit cryo. Neurology note reviewed, plan for a total of 7 PEX now. consider outpatient after steroids started. 09/27/16: PEX #4 today. Platelets 84k today. Up from 76k yesterday. Received 1 unit cryo over the weekend. Fibrinogen 130 today. He is overall improving. 09/25/15: PEX #3. [id number]. will give 1 unit cryo today after PEX 09/24/15: Second plasma exchange yesterday. He states his swallowing and speech seem improved today. Plan for exchange #3 tomorrow. Continue supportive care, PT. 09/23/16 Had second plasma phereses today . He is feeling somewhat better. continue pheresis QOD 09/22/16: Had 1st plasma exchange yesterday. Still c/o trouble swallowing. Speech therapy following. He should get exchange #2 tomorrow. 09/21/16: proceed with day 1 of PEX. monitor CBC, coags, calcium --heparin prophylaxis placed on hold as plasma exchange can produce a predictable decrease in blood coagulation factors that may predispose to bleeding. --PEX QOD x 5 total doses. Assessment 85y/o male with myasthenia gravis admitted with exacerbation. Hematology consulted to coordinate plasma exchange qod x 5. Attending Statement better. No new c/o continue pheresis The exam, history, and the medical decision-making described in the above note were completed with the assistance of the mid-level provider. I reviewed and agree with the findings presented. I attest that I had a [id number] encounter with the patient on the same day, and personally performed and documented my assessment and findings in the medical record. Elly Grimaldo Sep 28, 2016 10:20 Gabriel Garcia MD Sep 28, 2016 20:33
[2016-09-28] MEDS: PYRIDOSTIGMINE BROMIDE 60 MG TAB PO SCH ×3 (10:26→14:58)
[2016-09-28] MEDS ORDERED: diphenhydrAMINE HCL 25 MG CAP PO PRN (11:00)
[2016-09-28] MEDS ORDERED: ACETAMINOPHEN 325 MG TAB PO PRN (11:00)
[2016-09-28] MEDS ORDERED: SODIUM CHLOR 0.9% 250 ML INJ 250 ML IV ONE (11:00)
--- NOTE | 2016-09-28 11:30 | HHI.FPPN ---
Subjective Remarks Patient seen and examined this morning. Reports doing well. No complaints/ concerns. States he feels back to normal, regarding speech and swallowing. Received the 4th plasma exchange yesterday. Is due for #5 tomorrow. Was up walking around well yesterday. Denies chest pain, SOB, abdominal pain, leg pain. (Corey Mondragon MD R1) Objective Vitals Vital Signs Date Time Temp Pulse Resp B/P Pulse Ox O2 Delivery O2 Flow Rate FiO2 09/28/16 08:00 96.2 71 16 120/56 98 09/28/16 06:19 96.4 67 18 130/59 97 09/28/16 03:21 Room Air 09/28/16 00:00 96.9 66 18 162/75 98 09/27/16 21:00 96.7 63 20 124/59 100 09/27/16 18:06 58 09/27/16 15:51 96.3 71 18 123/59 100 09/27/16 12:00 97.1 75 18 126/59 99 I/O 09/27/16 09/27/16 09/27/16 09/28/16 09/28/16 09/28/16 07:00 15:00 23:00 07:00 15:00 23:00 Intake Total 120 ml Output Total 400 ml 250 ml Balance -280 ml -250 ml Intake Oral 120 ml Output Urine Total 400 ml 250 ml # Bowel Movements 0 (Corey Mondragon MD R1) Result Diagram: 09/28/16 0705 09/27/16 0652 Objective Remarks CONST: male sitting up comfortably in chair, in NAD. Normal speech HEENT: Poor longterm with multiple missing teeth. Conjunctiva clear. Ptosis of R eyelid. PERRL. EOMI. MMM RESP: Lungs CTAB. No wheezes. CV: RRR. No murmur appreciated. GI: Soft non-tender, non-distended. No masses. +BS. R ventral hernia. MSK: Muscle tone symmetrical, appropriate. NEURO: Speech regular. Strength 5/5 upper and lower extremities. Extremities neurovascularly intact. PSYCH: Affect appropriate. Good insight. Procedures 09/20- RIJ catheter placed 09/21, 09/23, 09/25- Plasmapheresis (Corey Mondragon MD R1) Date of Insertion: Sep 20, 2016 Line: Central Venous Catheter Side: Right Location: Internal, Jugular (Corey Mondragon MD R1) A/P Assessment and Plan 85y male with myasthenia gravis, metastatic colon cancer, and metastatic prostate cancer, presented with dysarthria and dysphagia, admitted 09/19/16 for myasthenia gravis exacerbation. Discharge Planning Pending Neurology recommendations. Recommended minimum 5 plasma exchanges QOD- 09/21, 09/23, 09/25, 09/27, 09/29 PT: [facility] OT: No OT needed ST: Will continue to evaluate if patient will require continued speech therapy on discharge WDW: Dr. Doherty (Corey Mondragon MD R1) Attending Attestation Case reviewed and discussed with the resident team. Agree with plan of care as discussed with me and documented in the resident note. (Chris Doherty MD) Problem List: (1) Myasthenia gravis with acute exacerbation Status: Acute Plan: Presented with dysarthria and dysphagia. Home medicines pyridostigmine and azathioprine. Consulted Neurology, Heme Onc (follows outpatient with Dr. Garcia). RIJ placed 09/20/16 by IR. Plan -Continued dysphagia -Diet: Mechanical soft today -Speech therapy will continue to evaluate daily for recommendations for inpt and outpt stay -Continue Regenol 4mg IV TID Azathioprine 25mg PO BID Neurology and Hematology consulted -Plasmapheresis qod x5. -Last plasmapheresis scheduled for 09/29 -PT/ST/Case management consulted (2) HTN (hypertension) Status: Chronic Plan: History of anxiety - Clonidine Patch 0.1mg Q7days (3) Blepharitis Status: Acute Plan: Erythema improved. Conjunctiva not-injected. Ptosis R eye. Plan -Pt did not tolerate ointment- made it difficult to see, dosed QID -s/p Erythromycin ointment 1g QID x 5-7 days (09/25-09/26 ) -Continue Gentamicin 0.3% solution 1 drop q4h while awake, R eye x5 days (09/26- ) (4) Constipation Status: Chronic Plan: Hx constipation, multiple SBO, s/p multiple surgeries, including partial colectomy for metastatic colon cancer. Home Benefiber, not in formulary. Plan Continue Colace 100mg BID Milk of magnesium 30 mL BID PRN constipation -Start Metamucil powder 1 packet daily, mixed into 8oz water or applesauce, pudding, or other thickened liquid/puree (5) Fibrinogen decreased Status: Acute Plan: Admitted with fibrinogen 223, decreased to low of 81. Likely secondary to plasmapheresis S/p 1 unit cryoprecipitate 09/25 per Hematology Oncology -Daily fibrinogen -Given 1 unit cryoprecipitate today (6) Thrombocytopenia Status: Chronic Plan: Platelets 131k on admission. Moderate thrombocytopenia. -Heparin prophylaxis placed on hold as plasma exchange can produce a predictable decrease in blood coagulation factors that may predispose to bleeding -Daily CBC, continue to monitor -Consider platelet transfusion if spontaneous bleeding, platelets <30k, or per Heme Onc recommendations to tolerate plasmapheresis (7) Hypokalemia Status: Resolved Plan: K stable -Continue to monitor and replete, as needed (8) Hx of malignant neoplasm of prostate Status: Chronic Plan: -Leuprolide 45mg INJ every other week (9) Anxiety Status: Chronic Plan: Home 0.25 Xanax q4h, uses sparingly. Continue to monitor (10) Vitamin B 12 deficiency Status: Chronic Plan: -Received monthly Vit B12 shot 09/22/16 (11) Nutrition, metabolism, and development symptoms Status: Chronic Plan: Fluids: Per PO Electrolytes: Mild hypokalemia 3.7 today this AM, continue to monitor Diet: mechanical soft, heart healthy diet DVT prophylaxis: SCDs, heparin prophylaxis placed on hold as plasma exchange can produce a predictable decrease in blood coagulation factors that may predispose to bleeding GI prophylaxis: not indicated OOB with assistance (Corey Mondragon MD R1) Problem Qualifiers (1) HTN (hypertension): Qualified Code: I10 - Essential hypertension (2) Blepharitis: Qualified Code: H01.001 - Blepharitis of both upper and lower eyelid of right eye, unspecified type (3) Constipation: Qualified Code: K59.01 - Slow transit constipation Corey Mondragon MD R1 Sep 28, 2016 11:30 Chris Doherty MD Sep 28, 2016 19:26
[2016-09-28] MEDS: CHOLECALCIFEROL (VIT D3) 5000 UNIT CAP PO SCH (12:25)
[2016-09-29] VITALS (15 sets, daily range): BP systolic 117–190; BP diastolic 56–81; PULSE 54–95; RESP 13–20; TEMP 97.7–98.3; O2SAT 94–99
[2016-09-29] MEDS ORDERED: CHLORHEXIDINE GLUCONATE 2 % 1 PACK (2 CLOTHS)(extra cloths) TOP PRN (01:15)
[2016-09-29] MEDS: CHLORHEXIDINE GLUCONATE 2 % 1 PACK (2 CLOTHS)(taper/protocol) TOP SCH (01:41)
[2016-09-29] MEDS: ALPRAZolam 0.25 MG TAB PO PRN ×2 (01:57→23:47)
[2016-09-29] MEDS: GENTAMICIN SULFATE 0.3% OPHT SOLN 5 ML BTL RIGHT EYE SCH ×6 (01:57→21:12)
[2016-09-29 05:45] LABS: AUTOMATED NEUTROPHIL # 2.7 TH/MM3 (1.8-7.7); BASOPHIL % 0.6 % (0.0-2.0); EOSINOPHIL % 1.3 % (0.0-4.0); HEMATOCRIT 29.8 % (39.0-51.0); LYMPH % 7.2 % (9.0-44.0); LYMPHOCYTE # 0.2 TH/MM3 (1.0-4.8); MEAN CELL VOLUME 84.7 FL (80.0-100.0); MEAN CORPUSCULAR HEMOGLOBIN 28.5 PG (27.0-34.0); MEAN CORPUSCULAR HGB CONC 33.7 % (32.0-36.0); MONO % 9.4 % (0.0-8.0); NEUT % 81.5 % (16.0-70.0); PLATELET COUNT 80 TH/MM3 (150-450); RED BLOOD COUNT 3.52 MIL/MM3 (4.50-5.90); RED CELL DISTRIBUTION WIDTH 16.8 % (11.6-17.2); WHITE BLOOD COUNT 3.3 TH/MM3 (4.0-11.0)
[2016-09-29 05:47] LABS: HEMO FLAGS AUTO DIFF
[2016-09-29 06:10] LABS: BICARBONATE 27.4 MEQ/L (21.0-32.0); POTASSIUM 3.5 MEQ/L (3.5-5.1)
[2016-09-29 07:53] LABS: PLATELET ESTIMATE SMEAR LOW (NORMAL); PLATELET MORPHOLOGY NORMAL (NORMAL); SCAN/DIFF AUTO DIFF CONFIRMED
--- NOTE | 2016-09-29 08:44 | HHI.PR ---
Subjective Remarks episode last pm of strain with bm and had slurred speech and double visin and maybe facial droop he denies there is some hx lazy eye and diplopia in past Objective Vital Signs Date Time Temp Pulse Resp B/P Pulse Ox O2 Delivery O2 Flow Rate FiO2 09/29/16 06:00 54 09/29/16 04:00 64 09/29/16 04:00 98.2 64 17 123/62 94 09/29/16 02:00 82 09/29/16 00:40 98.2 89 20 171/81 09/28/16 23:52 95.8 89 22 134/77 95 09/28/16 23:20 Room Air 09/28/16 23:00 85 09/28/16 20:00 96.1 69 22 141/63 98 09/28/16 16:00 97.1 68 18 126/65 96 09/28/16 12:34 98.6 64 18 119/64 96 I/O 09/28/16 09/28/16 09/28/16 09/29/16 09/29/16 09/29/16 07:00 15:00 23:00 07:00 15:00 23:00 Intake Total 480 ml 60 ml Output Total 250 ml 850 ml 300 ml 400 ml Balance -250 ml -370 ml -300 ml -340 ml Intake Oral 480 ml 60 ml Output Urine Total 250 ml 850 ml 300 ml 400 ml # Voids 2 # Bowel Movements 0 0 Result Diagram: 09/29/16 0436 09/29/16 0436 Objective Remarks voice not quite as good as yest vff eomi no nyst face sym tongue mid 12/31 t/o no double now Assessment and Plan Assessment and Plan imp mg pex sp #5 today bulbar fxt much better eating now solids well oob can hep lock while oob and ambulate better bp control immuran will need extended course of plasma exchange he is doing better steroids 30mg today will inc tomorrow plt watch stable plan is to put on steroids to day and inc tomorrow and continue pex for at least 7 sessions he could do some outpatient if he tolerates steroids ok over next few days 09/29/16 possible tia and will do maddox i think more likey vasovagal and brought out sx of mg as he felt like he might pass out but did not sr overnoc in icu now maddox ok pex if mri neg today may be alittle worse after steroid start stay on 30 mg for today Mickey Loyola MD Sep 29, 2016 08:44
[2016-09-29] MEDS: PSYLLIUM FIBER SF/GF 6 GM POWD PKT PO SCH (09:35)
[2016-09-29] MEDS: CALCIUM CARBONATE 500 MG CHEWABLE TAB CHEW SCH (09:35)
[2016-09-29] MEDS: DOCUSATE SODIUM 100 MG CAP PO SCH ×2 (09:36→21:10)
[2016-09-29] MEDS: predniSONE 20 MG TAB PO SCH (09:36)
[2016-09-29] MEDS: PYRIDOSTIGMINE BROMIDE 60 MG TAB PO SCH ×3 (09:36→16:27)
[2016-09-29] MEDS: FAMOTIDINE 20 MG TAB PO SCH ×2 (09:36→21:10)
[2016-09-29] MEDS: azaTHIOprine 50 MG TAB PO SCH ×2 (09:37→21:10)
[2016-09-29] MEDS: CHOLECALCIFEROL (VIT D3) 5000 UNIT CAP PO SCH (09:37)
[2016-09-29] MEDS: SODIUM CHLORIDE 0.9% FLUSH 5 ML FLUSH FLUSH SCH ×2 (09:38→21:11)
[2016-09-29] MEDS ORDERED: PILL SPLITTER OTHER PRN (09:45)
--- NOTE | 2016-09-29 10:38 | HHI.FPPN ---
Subjective Remarks Patient seen and examined this morning. Overnight, he was using the bathroom and was constipated. After the bowel movement, stated he felt dizzy and had double vision. He sat down and it slowly resolved, but he was worried about his myasthenia gravis causing the episode. He was transferred to the ICU by neurology to watch for respiratory compromise. Denies any complaints this morning. States he is swallowing and breathing fine. Denies any fever/chills, nausea/vomiting, chest pain, SOB, abdominal pain, leg pain. (Corey Mondragon MD R1) Objective Vitals Vital Signs Date Time Temp Pulse Resp B/P Pulse Ox O2 Delivery O2 Flow Rate FiO2 09/29/16 08:49 99 21 09/29/16 06:00 54 09/29/16 04:00 64 09/29/16 04:00 98.2 64 17 123/62 94 09/29/16 02:00 82 09/29/16 00:40 98.2 89 20 171/81 09/28/16 23:52 95.8 89 22 134/77 95 09/28/16 23:20 Room Air 09/28/16 23:00 85 09/28/16 20:00 96.1 69 22 141/63 98 09/28/16 16:00 97.1 68 18 126/65 96 09/28/16 12:34 98.6 64 18 119/64 96 I/O 09/28/16 09/28/16 09/28/16 09/29/16 09/29/16 09/29/16 07:00 15:00 23:00 07:00 15:00 23:00 Intake Total 480 ml 60 ml Output Total 250 ml 850 ml 300 ml 400 ml Balance -250 ml -370 ml -300 ml -340 ml Intake Oral 480 ml 60 ml Output Urine Total 250 ml 850 ml 300 ml 400 ml # Voids 2 # Bowel Movements 0 0 (Corey Mondragon MD R1) Result Diagram: 09/29/1643509/29/16435 Objective Remarks CONST: male sitting up comfortably in chair, in NAD. Normal speech HEENT: Poor longterm with multiple missing teeth. Conjunctiva clear. Ptosis of R eyelid. PERRL. EOMI. MMM RESP: Lungs CTAB. No wheezes. CV: RRR. No murmur appreciated. GI: Soft non-tender, non-distended. No masses. +BS. R ventral hernia. MSK: Muscle tone symmetrical, appropriate. NEURO: Speech regular. Strength 5/5 upper and lower extremities. Extremities neurovascularly intact. PSYCH: Affect appropriate. Good insight. Procedures 09/20- RIJ catheter placed 09/21, 09/23, 09/25- Plasmapheresis (Corey Mondragon MD R1) Date of Insertion: Sep 20, 2016 Line: Central Venous Catheter Side: Right Location: Internal, Jugular (Corey Mondragon MD R1) A/P Assessment and Plan 85y male with myasthenia gravis, metastatic colon cancer, and metastatic prostate cancer, presented with dysarthria and dysphagia, admitted 09/19/16 for myasthenia gravis exacerbation. Discharge Planning Pending Neurology recommendations. Recommended minimum 5 plasma exchanges QOD- 09/21, 09/23, 09/25, 09/27, 09/29 PT: [facility] OT: No OT needed ST: Will continue to evaluate if patient will require continued speech therapy on discharge WDW: Dr. Doherty (Corey Mondragon MD R1) Attending Attestation Patient seen and examined. Case reviewed and discussed with the resident team. Agree with plan of care as discussed with me and documented in the resident note. (Chris Doherty MD) Problem List: (1) Myasthenia gravis with acute exacerbation Status: Acute Plan: Presented with dysarthria and dysphagia. Home medicines pyridostigmine and azathioprine. Consulted Neurology, Heme Onc (follows outpatient with Dr. Garcia). RIJ placed 09/20/16 by IR. Plan -Continued dysphagia -Diet: Mechanical soft today -Speech therapy will continue to evaluate, appreciate recs -Continue Regenol 4mg IV TID Azathioprine 25mg PO BID Neurology and Hematology consulted -Plasmapheresis qod x5. -Last plasmapheresis scheduled for 09/29 -PT/ST/Case management consulted (2) HTN (hypertension) Status: Chronic Plan: History of anxiety - Clonidine Patch 0.1mg Q7days (3) Blepharitis Status: Acute Plan: Erythema improved. Conjunctiva not-injected. Ptosis R eye. Plan -Pt did not tolerate ointment- made it difficult to see, dosed QID -s/p Erythromycin ointment 1g QID x 5-7 days (09/25-09/26 ) -Continue Gentamicin 0.3% solution 1 drop q4h while awake, R eye x5 days (09/26- ) (4) Constipation Status: Chronic Plan: Hx constipation, multiple SBO, s/p multiple surgeries, including partial colectomy for metastatic colon cancer. Home Benefiber, not in formulary. Plan Continue Colace 100mg BID Milk of magnesium 30 mL BID PRN constipation -Start Metamucil powder 1 packet daily, mixed into 8oz water or applesauce, pudding, or other thickened liquid/puree (5) Fibrinogen decreased Status: Acute Plan: Admitted with fibrinogen 223, decreased to low of 81. Likely secondary to plasmapheresis S/p 1 unit cryoprecipitate 09/25 & 1 unit 09/28 per Hematology Oncology -Daily fibrinogen (6) Thrombocytopenia Status: Chronic Plan: Platelets 131k on admission. Moderate thrombocytopenia. -Heparin prophylaxis placed on hold as plasma exchange can produce a predictable decrease in blood coagulation factors that may predispose to bleeding -Daily CBC, continue to monitor -Consider platelet transfusion if spontaneous bleeding, platelets <30k, or per Heme Onc recommendations to tolerate plasmapheresis (7) Hypokalemia Status: Resolved Plan: K stable -Continue to monitor and replete, as needed (8) Hx of malignant neoplasm of prostate Status: Chronic Plan: -Leuprolide 45mg INJ every other week (9) Anxiety Status: Chronic Plan: Home 0.25 Xanax q4h, uses sparingly. Continue to monitor (10) Vitamin B 12 deficiency Status: Chronic Plan: -Received monthly Vit B12 shot 09/22/16 (11) Nutrition, metabolism, and development symptoms Status: Chronic Plan: Fluids: Per PO Electrolytes: Mild hypokalemia 3.5 today this AM, continue to monitor Diet: mechanical soft, heart healthy diet DVT prophylaxis: SCDs, heparin prophylaxis placed on hold as plasma exchange can produce a predictable decrease in blood coagulation factors that may predispose to bleeding GI prophylaxis: not indicated OOB with assistance (Corey Mondragon MD R1) Problem Qualifiers (1) HTN (hypertension): Qualified Code: I10 - Essential hypertension (2) Blepharitis: Qualified Code: H01.001 - Blepharitis of both upper and lower eyelid of right eye, unspecified type (3) Constipation: Qualified Code: K59.01 - Slow transit constipation Corey Mondragon MD R1 Sep 29, 2016 10:38 Chris Doherty MD Sep 29, 2016 16:19
--- NOTE | 2016-09-29 11:23 | RADRPT ---
EXAM DATE/TIME: 09/29/2016 10:25 This report includes an Addendum and supersedes previous reports for this exam. [facility] COMPARISON: MRI BRAIN W/O CONTRAST, August 07, 2014, 20:40. INDICATIONS : Vertigo. CONTRAST: 20 cc Omniscan (gadodiamide) IV MEDICAL HISTORY : Myasthenia Gravis SURGICAL HISTORY : Colon resection. Inguinal hernia repair. Liver resection. ENCOUNTER: Initial ACUITY: 2 day PAIN SCORE: 0/10 LOCATION: head TECHNIQUE: Multiplanar, multisequence MRI of the brain was performed both prior to and following the administrat ion of paramagnetic contrast. FINDINGS: Comparison is 2013. There are moderate chronic changes of ischemic demyelinization in the periventric ular white matter similar to prior exam. No abnormal enhancing lesions are seen postcontrast. 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 No recent infarct. No mass effect or shift. No hydrocephal us. No abnormal extra-axial fluid collections. CONCLUSION: 1. No acute findings. Stable chronic moderate ischemic changes in a periventricular white matter sin e 2013. No recent infarct. Vamshi Ellis MD on September 29, 2016 at 11:17 Board Certified Radiologist. This report was verified electronically. ADDENDUM: Small extra-axial fluid collections characteristic of small subdural hematomas of varying age are víctor ntified. There are small crescent-shaped collection along the medial cortical margin of the left occi pital lobe and along the posterior margin of the left cerebellum which appear acute. The collections are hyperintense on flair imaging and hypointense on susceptibility weighted imaging. There is no sig nificant mass effect, underlying cortical edema or associated intra-axial hemorrhage. Small crescent-shaped subdural collections are seen along the left cerebral convexity and right poste rior parietal lobe. These collections are only minimally hyperintense compared to adjacent brain and do not exhibit significant susceptibility. These are characteristic of chronic subdural collections. Marco Lewis MD on September 30, 2016 at 8:11 Board Certified Radiologist. This report was verified electronically.
--- NOTE | 2016-09-29 11:25 | RADRPT ---
EXAM DATE/TIME: 09/29/2016 10:25 [facility] COMPARISON: No previous studies available for comparison. INDICATIONS : Unsteady gait. MEDICAL HISTORY : Myasthenia Gravis. SURGICAL HISTORY : Colon resection. Inguinal hernia repair. Liver resection. ENCOUNTER: Subsequent ACUITY: 3 day PAIN SCORE: 0/10 LOCATION: head Please note a normal MRA of the brain does not entirely exclude the possibility of a small aneurysm, nor the possibility of distal intracranial vessel disease. TECHNIQUE: 3D time of flight MRA was performed. Source images, multiplanar STS MIP, and 3D volume MIP reconstru ctions were reviewed. FINDINGS: There is excellent visualization of the major intracranial arteries out to the second-order branch ve ssels. There is no evidence for aneurysm, vessel truncation or stenosis, and no evidence for vascula r malformation. CONCLUSION: 1. Examination is within normal limits for age. 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 Vamshi Ellis MD on September 29, 2016 at 11:21 Board Certified Radiologist. This report was verified electronically.
--- NOTE | 2016-09-29 11:35 | RADRPT ---
EXAM DATE/TIME: 09/29/2016 10:25 [facility] COMPARISON: No previous studies available for comparison. INDICATIONS : Stroke. CONTRAST: 20 cc Omniscan (gadodiamide) IV MEDICAL HISTORY : Myasthenia Gravis. SURGICAL HISTORY : Colon resection. Inguinal hernia repair. Liver resection. ENCOUNTER: Initial ACUITY: 2 day PAIN SCORE: 0/10 LOCATION: neck Percent stenosis is calculated using the diameter of the stenotic region over the diameter of the nor mal distal internal carotid artery. TECHNIQUE: Bolus infused MRA of the extracranial circulation was performed using a neurovascular coil. Post pro cessing was performed including rotationg subvolume maximum intensity projections of each carotid art burak, rotating full volume maximum intensity projections of both carotid arteries, sagittal and rich l sliding thin slab reformations of each carotid artery, and left oblique sliding thin slab reformati on through the aortic arch to include the origin of the arch branch vessels. FINDINGS: AORTIC ARCH: There is a 2 vessel origin of the great vessels from the aorta. The innominate and left common caroti d artery have a common origin. No evidence of ostial narrowing. RIGHT CAROTID: The common carotid artery is intact. The carotid bulb has a normal configuration without ulceration or narrowing. The internal carotid artery lumen is smooth without stenosis. The external carotid ar jasvir is intact. LEFT CAROTID: The common carotid artery is intact. The carotid bulb has a normal configuration without ulceration or narrowing. The internal carotid artery lumen is smooth without stenosis. The external carotid ar jasvir is intact. VERTEBRALS: The vertebral arteries are asymmetric in size with the left being dominant. No stenotic lesions are seen. CONCLUSION: No evidence of significant atherosclerotic vascular disease or hemodynamically signif icant stenosis. Marco Lewis MD on September 29, 2016 at 11:32 Board Certified Radiologist. This report was verified electronically.
[2016-09-29] MEDS ORDERED: GADODIAMIDE PF 287 MG/ML 20 ML VIAL (for RAD MRI) IV ONE (11:46)
[2016-09-29] MEDS: ANTICOAGULANT CITRATE DEXTROSE SOLN-A 1L OTHER SCH (12:27)
[2016-09-29] MEDS: ALBUMIN HUMAN 5% 25 GM/500 ML BOTTLE IV SCH (12:27)
[2016-09-29] MEDS: SODIUM CHLOR 0.9% 1000 ML IV SCH (12:28)
[2016-09-29] MEDS: CALCIUM GLUCONATE INJ 4 GM in SODIUM CHLOR 0.9% 250 ML INJ 200 ML IV SCH (12:28)
--- NOTE | 2016-09-29 15:50 | PD.ONC.PN ---
Subjective Subjective Remarks Afebrile overnight. Pt lying in bed currently getting his 5th plasma exchange. He tells me he got dizzy last night while trying to have a BM and almost passed out. He was transferred to [facility] [place]. Objective Data Date Time Temp Pulse Resp B/P Pulse Ox O2 Delivery O2 Flow Rate FiO2 09/29/16 08:49 99 21 09/29/16 08:00 Room Air 09/29/16 06:00 54 09/29/16 04:00 64 09/29/16 04:00 98.2 64 17 123/62 94 09/29/16 02:00 82 09/29/16 00:40 98.2 89 20 171/81 09/28/16 23:52 95.8 89 22 134/77 95 09/28/16 23:20 Room Air 09/28/16 23:00 85 09/28/16 20:00 96.1 69 22 141/63 98 09/28/16 16:00 97.1 68 18 126/65 96 09/29/16 09/29/16 09/29/16 07:00 15:00 23:00 Intake Total 60 ml 360 ml Output Total 400 ml 250 ml Balance -340 ml 110 ml Result Diagram: 09/29/16 0436 09/29/16 0436 Laboratory Results Laboratory Tests Test 09/29/16 09/29/16 00:40 04:36 Nasal Screen MRSA (PCR) NEGATIVE White Blood Count 3.3 TH/MM3 Red Blood Count 3.52 MIL/MM3 Hemoglobin 10.0 GM/DL Hematocrit 29.8 % Mean Corpuscular Volume 84.7 FL Mean Corpuscular Hemoglobin 28.5 PG Mean Corpuscular Hemoglobin 33.7 % Concent Red Cell Distribution Width 16.8 % Platelet Count 80 TH/MM3 Mean Platelet Volume 9.4 FL Neutrophils (%) (Auto) 81.5 % Lymphocytes (%) (Auto) 7.2 % Monocytes (%) (Auto) 9.4 % Eosinophils (%) (Auto) 1.3 % Basophils (%) (Auto) 0.6 % Neutrophils # (Auto) 2.7 TH/MM3 Lymphocytes # (Auto) 0.2 TH/MM3 Monocytes # (Auto) 0.3 TH/MM3 Eosinophils # (Auto) 0.0 TH/MM3 Basophils # (Auto) 0.0 TH/MM3 CBC Comment AUTO DIFF Differential Comment AUTO DIFF CONFIRMED Platelet Estimate LOW Platelet Morphology Comment NORMAL Fibrinogen 133 mg/dL Sodium Level 143 MEQ/L Potassium Level 3.5 MEQ/L Chloride Level 105 MEQ/L Carbon Dioxide Level 27.4 MEQ/L Anion Gap 11 MEQ/L Blood Urea Nitrogen 15 MG/DL Creatinine 0.68 MG/DL Estimat Glomerular Filtration 111 ML/MIN Rate Random Glucose 110 MG/DL Calcium Level 9.1 MG/DL Aspartate Amino Transf 15 U/L (AST/SGOT) Alanine Aminotransferase 18 U/L (ALT/SGPT) Total Creatine Kinase 37 U/L Troponin I 0.06 NG/ML Imaging Studies Last 24 hours Impressions Neck Magnetic Resonance Angiography 09/29/16836 Signed Impressions: Service Date/Time: Thursday, September 29, 2016 10:25 - CONCLUSION: No evidence of significant atherosclerotic vascular disease or hemodynamically significant stenosis. Marco Lewis MD Head Magnetic Resonance Angiography 09/29/16836 Signed Impressions: Service Date/Time: Thursday, September 29, 2016 10:25 - CONCLUSION: 1. Examination is within normal limits for age. 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 Vamshi Ellis MD Brain MRI 09/29/16836 Signed Impressions: Service Date/Time: Thursday, September 29, 2016 10:25 - CONCLUSION: 1. No acute findings. Stable chronic moderate ischemic changes in a periventricular white matter since 2013. No recent infarct. Vamshi Ellis MD Administered Medications Medications (Trade) Dose Ordered Sig/Brock Route PRN Reason Start Time Stop Time Status Last Admin Dose Admin Azathioprine (Imuran) 25 mg BID PO 09/20/16 09:00 09/29/16 09:37 Docusate Sodium (Colace) 100 mg BID PO 09/20/16 09:00 09/29/16 09:36 IV Flush (NS Flush) 2 ml BID FLUSH 09/20/16 09:00 09/29/16 09:38 Magnesium Hydroxide (Milk Of Magnesia Liq) 30 ml Q12H PRN PO CONSTIPATION 09/20/16 02:45 09/26/16 21:48 Heparin Sodium (Porcine) 5000 units 5,000 units Q12H SQ 09/20/16 02:45 Hold 09/20/16 15:20 Calcium Gluconate 4 gm/Sodium Chloride 240 ml @ 120 mls/hr Q48H IV 09/21/16 15:00 09/29/16 16:59 09/29/16 12:28 Sodium Chloride (NS 1000 ml Inj) 1,000 ml @ 0 mls/hr Q48H IV 09/21/16 15:00 09/29/19 23:00 09/29/16 12:28 Heparin Sodium (Porcine) (Heparin Inj) 5,000 units UNSCH PRN IVF FLUSH AFTER USING IV ACCESS 09/21/16 15:00 09/29/16 23:00 09/29/16 13:53 Clonidine (Catapres-Tts 0.1mg Patch.7d) 1 patch Q7D TD 09/23/16 09:00 09/23/16 09:06 Psyllium Hydrophilic Mucilloid (Metamucil Smooth Texture Sf/ Gf Pkt) 1 pkt DAILY PO 09/26/16 13:00 09/29/16 09:35 Gentamicin Sulfate (Gentamicin Opht 0.3% Soln) 1 drop Q4HR RIGHT EYE 09/26/16 16:00 09/29/16 12:00 Alprazolam (Xanax) 0.25 mg HS PRN PO SLEEP 09/27/16 01:45 09/29/16 01:57 Prednisone (Deltasone) 30 mg DAILY PO 09/28/16 09:00 09/29/16 09:36 Famotidine (Pepcid) 20 mg Q12HR PO 09/28/16 10:00 09/29/16 09:36 Cholecalciferol (Vitamin D3) 5,000 units DAILY PO 09/28/16 11:00 09/29/16 09:37 Calcium Carbonate (Tums Chew) 500 mg DAILY CHEW 09/28/16 09:00 09/29/16 09:35 Chlorhexidine Gluconate (Chlorhexidine 2% Cloth) 3 pack DAILY@04 TOP 09/29/16 04:00 10/03/16 04:01 09/29/16 01:41 Pyridostigmine [place] (Mestinon) 120 mg TID@07,12,16 PO 09/29/16 09:30 09/29/16 12:26 Objective Remarks GENERAL: Elderly male lying in bed in the middle of plasma exchange. He looks tired today. SKIN: Warm and dry. Vascath to R neck asymptomatic. HEAD: Normocephalic. EYES: No injection or drainage. NECK: Supple, trachea midline. CARDIOVASCULAR: +S1/S2. No murmur appreciated. RESPIRATORY: Lungs clear throughout. Breathing easy and unlabored. GASTROINTESTINAL: Abdomen soft, non-tender, nondistended. EXTREMITIES: No edema. MUSCULOSKELETAL: Generalized weakness. NEUROLOGICAL: No obvious focal deficit. Awake, alert, and oriented x3. Assessment/Plan Problem List: (1) Myasthenia gravis Status: Chronic Plan: 09/29/16: Plasma exchange #5 today. Labs stable. Plan for two more treatments as an outpatient. Recheck labs in am. 09/28/16: off day. fibrinogen 67. monitor for bleeding. Give 1 unit cryo. Neurology note reviewed, plan for a total of 7 PEX now. consider outpatient after steroids started. 09/27/16: PEX #4 today. Platelets 84k today. Up from 76k yesterday. Received 1 unit cryo over the weekend. Fibrinogen 130 today. He is overall improving. 09/25/15: PEX #3. [id number]. will give 1 unit cryo today after PEX 09/24/15: Second plasma exchange yesterday. He states his swallowing and speech seem improved today. Plan for exchange #3 tomorrow. Continue supportive care, PT. 09/23/16 Had second plasma phereses today . He is feeling somewhat better. continue pheresis QOD 09/22/16: Had 1st plasma exchange yesterday. Still c/o trouble swallowing. Speech therapy following. He should get exchange #2 tomorrow. 09/21/16: proceed with day 1 of PEX. monitor CBC, coags, calcium --heparin prophylaxis placed on hold as plasma exchange can produce a predictable decrease in blood coagulation factors that may predispose to bleeding. --PEX QOD x 5 total doses. Assessment 85y/o male with myasthenia gravis admitted with exacerbation. Hematology consulted to coordinate plasma exchange qod x 5. Attending Statement had a syncopal episode last night while having a BM. Moved [place] [facility] Possible TIA or Vasovagal. [address] DR Bundy wants total 7 pheresis. Will notify pheresis nurse for 2 additional pheresis. The exam, history, and the medical decision-making described in the above note were completed with the assistance of the mid-level provider. I reviewed and agree with the findings presented. I attest that I had a [id number] encounter with the patient on the same day, and personally performed and documented my assessment and findings in the medical record. Halle Deng Sep 29, 2016 15:50 Gabriel Garcia MD Sep 29, 2016 16:28
--- NOTE | 2016-09-29 21:00 | EC ---
Study Study Date:09/29/2016 STUDY CONCLUSIONS SUMMARY - Left ventricle: The cavity size was normal. Wall thickness was normal. Systolic function was normal. The estimated ejection fraction was 55%. Wall motion was normal; there were no regional wall motion abnormalities. - Aortic valve: Trace regurgitation. - Mitral valve: Mild regurgitation. - Right ventricle: The cavity size was mildly dilated. Wall thickness was normal. - Tricuspid valve: Mild regurgitation. If LV function is below 40, please consider prescribing an ACEI or ARB or document rationale for non-use. PROCEDURE DATA STUDY STATUS: Elective. Procedure: Transthoracic echocardiography. Image quality was good. Scanning was performed from the parasternal, apical, and subcostal acoustic windows. Study completion: The patient tolerated the procedure well. Transthoracic echocardiography. M-mode, complete 2D, complete spectral Doppler, and color Doppler. Height: Height: 72in. Weight: Weight: 160.7lb. Body mass index: BMI: 21.8kg/m^2. Body surface area: BSA: 1.94m^2. Patient status: Inpatient. CARDIAC ANATOMY LEFT VENTRICLE: The cavity size was normal. Wall thickness was normal. Systolic function was normal. The estimated ejection fraction was 55%. Wall motion was normal; there were no regional wall motion abnormalities. AORTIC VALVE: Trileaflet; mildly thickened, mildly calcified leaflets. Doppler: Transvalvular velocity was within the normal range. There was no stenosis. Trace regurgitation. Valve area: 1.28cm^2(VTI). Indexed valve area: 0.66cm^2/m^2 (VTI). Valve area: 1.39cm^2 (Vmax). Indexed valve area: 0.72cm^2/m^2 (Vmax). Mean gradient: 8mm Hg (S). Peak gradient: 14mm Hg (S). AORTA: Aortic root: The aortic root was normal in size. MITRAL VALVE: Structurally normal valve. Doppler: Transvalvular velocity was within the normal range. There was no evidence for stenosis. Mild regurgitation. LEFT ATRIUM: The atrium was normal in size. RIGHT VENTRICLE: The cavity size was mildly dilated. Wall thickness was normal. PULMONIC VALVE: Doppler: Transvalvular velocity was within the normal range. There was no evidence for stenosis. No regurgitation. TRICUSPID VALVE: Structurally normal valve. Doppler: Transvalvular velocity was within the normal range. Mild regurgitation. PULMONARY ARTERY: The main pulmonary artery was normal-sized. Systolic pressure was within the normal range. RIGHT ATRIUM: The atrium was normal in size. PERICARDIUM: There was no pericardial effusion. SYSTEMIC VEINS: Inferior vena cava: The vessel was normal in size. Patient weight: 160.7lb _Ejection fraction:_ 65-75% _Fractional shortening:_ 32% up to 5Kg 5-11.5Kg 11.6-22.9Kg 23-45Kg 45-57Kg Aortic Root 7-13 <17 13-22 17-27 17-27 LA diam 6-13 <23 24-38 33-47 37-40 RVID 10-17 7-15 7-15 7-18 8-17 LVIDd 12-22 <32 24-38 33-47 37-40 LVPW 2-4 3-6 5-7 6-8 7-8 IVS 2-4 3-6 5-7 6-8 7-8 BASIC MEASUREMENTS ADULT NORMAL Aorta Root diameter, ED 37 mm DOPPLER MEASUREMENTS ADULT NORMAL Main pulmonary artery Pressure, S 21 mm Hg =30 Aortic valve Peak velocity, S 186 cm/s Mean velocity, S 135 cm/s VTI, S 41.2 cm Mean gradient, S 8 mm Hg Peak gradient, S 14 mm Hg Valve area, VTI 1.28 cm^2 Valve area index, VTI 0.66 cm^2/m^2 Valve area, Vmax 1.39 cm^2 Valve area index, Vmax 0.72 cm^2/m^2 Mitral valve Peak E-wave velocity 55.3 cm/s Peak A-wave velocity 70.1 cm/s Deceleration time *331 ms 150-230 Peak E/A ratio 0.8 Tricuspid valve Regurgitant peak velocity 202 cm/s Peak RV-RA gradient, S 16 mm Hg Maximal regurgitant velocity 202 cm/s Systemic veins Estimated CVP 5 mm Hg Right ventricle RV pressure, S 21 mm Hg <30 LEGEND: Mean values are shown as u=mean value. Asterisk (*) dominguez values outside specified normal range. Prepared and signed by Chani Drummond [id number]
[2016-09-29 23:36] LABS: BLOOD, URINE NEG (NEG); GLUCOSE,URINE NEG (NEG); KETONE, URINE NEG (NEG); NITRITE,URINE NEG (NEG); PH, URINE 5.5 (5.0-8.5); URINE COLOR LIGHT-YELLOW (YELLW/STRAW)
[2016-09-29 23:37] LABS: COMMENT (UR) CULT NOT INDICATED; CULTURE IF INDICATED CULT NOT INDICATED
[2016-09-30] VITALS (12 sets, daily range): BP systolic 120–151; BP diastolic 57–65; PULSE 56–116; RESP 16–21; TEMP 96.8–98.1; O2SAT 92–99
[2016-09-30] MEDS: CHLORHEXIDINE GLUCONATE 2 % 1 PACK (2 CLOTHS)(taper/protocol) TOP SCH (04:00)
[2016-09-30] MEDS: GENTAMICIN SULFATE 0.3% OPHT SOLN 5 ML BTL RIGHT EYE SCH ×6 (05:57→23:19)
[2016-09-30] MEDS: PYRIDOSTIGMINE BROMIDE 60 MG TAB PO SCH ×3 (06:00→16:17)
[2016-09-30 06:09] LABS: AUTOMATED NEUTROPHIL # 2.1 TH/MM3 (1.8-7.7); BASOPHIL % 0.4 % (0.0-2.0); EOSINOPHIL % 0.9 % (0.0-4.0); HEMATOCRIT 31.5 % (39.0-51.0); LYMPH % 9.1 % (9.0-44.0); LYMPHOCYTE # 0.2 TH/MM3 (1.0-4.8); MEAN CELL VOLUME 85.9 FL (80.0-100.0); MEAN CORPUSCULAR HEMOGLOBIN 28.6 PG (27.0-34.0); MEAN CORPUSCULAR HGB CONC 33.3 % (32.0-36.0); MONO % 11.9 % (0.0-8.0); NEUT % 77.7 % (16.0-70.0); PLATELET COUNT 82 TH/MM3 (150-450); RED BLOOD COUNT 3.67 MIL/MM3 (4.50-5.90); RED CELL DISTRIBUTION WIDTH 17.6 % (11.6-17.2); WHITE BLOOD COUNT 2.7 TH/MM3 (4.0-11.0)
[2016-09-30 06:29] LABS: POTASSIUM 3.7 MEQ/L (3.5-5.1)
[2016-09-30 06:48] LABS: HEMO FLAGS AUTO DIFF
[2016-09-30 08:11] LABS: SCAN/DIFF AUTO DIFF CONFIRMED
[2016-09-30 08:13] LABS: PLATELET MORPHOLOGY NORMAL (NORMAL)
--- NOTE | 2016-09-30 08:15 | HHI.PR ---
Subjective Remarks no new spells sr overnoc Objective Vital Signs Date Time Temp Pulse Resp B/P Pulse Ox O2 Delivery O2 Flow Rate FiO2 09/30/16 06:00 57 09/30/16 04:00 97.9 68 21 150/65 92 09/30/16 04:00 68 09/30/16 02:00 56 09/30/16 00:00 98.0 58 17 122/58 95 09/30/16 00:00 58 09/29/16 22:00 95 09/29/16 20:02 59 09/29/16 20:00 Room Air 09/29/16 20:00 97.7 59 13 117/57 97 09/29/16 16:00 98.3 66 20 145/67 94 09/29/16 15:31 138/65 09/29/16 15:30 141/65 09/29/16 15:00 141/65 09/29/16 12:00 97.9 68 20 139/64 94 09/29/16 08:49 99 21 09/29/16 08:00 Room Air 09/29/16 08:00 98.1 64 20 190/79 94 I/O 09/29/16 09/29/16 09/29/16 09/30/16 09/30/16 09/30/16 07:00 15:00 23:00 07:00 15:00 23:00 Intake Total 60 ml 360 ml 60 ml Output Total 400 ml 250 ml 1350 ml 400 ml Balance -340 ml 110 ml -1290 ml -400 ml Intake Oral 60 ml 360 ml 60 ml Output Urine Total 400 ml 250 ml 1350 ml 400 ml # Voids 2 3 4 # Bowel Movements 0 Result Diagram: 09/30/16 0439 09/30/16 0439 Other Results mri/a ok by report but i ? is small bleed by left occipital medial extraaxial and by left cbllm mra neck left vert dom r atretic cpk trop and echo neg Objective Remarks voicesavme facial strength eye closure and buccal much better vff eomi no nyst face sym tongue mid 5 t/o no double now Assessment and Plan Assessment and Plan imp mg pex sp #5 yest fibrinogen low bulbar fxt much better eating now solids well oob can hep lock while oob and ambulate better bp control immuran will need extended course of plasma exchange he is doing better steroids 30mg today will inc tomorrow plt watch stable plan is to put on steroids to day and inc tomorrow and continue pex for at least 7 sessions he could do some outpatient if he tolerates steroids ok over next few days 09/29/16 possible tia and will do maddox i think more likey vasovagal and brought out sx of mg as he felt like he might pass out but did not sr overnoc in icu now maddox ok pex if mri neg today may be alittle worse after steroid start stay on 30 mg for today 09/30/16 i reviewed mri there is a small amt of acute blood in interhemispheric fissure posteriorly on left by occipital lobe and left cbllr extaaxial old left sdh small check eeg idw rads i dw dr stoddard will change to ffp with pex check mrv fu holter i think this likely explains his episode the other noc have nusu comment no aneurism on mra Mickey Loyola MD Sep 30, 2016 08:15
--- NOTE | 2016-09-30 08:27 | HHI.FPPN ---
Subjective Remarks Patient seen and examined today. No acute events overnight. No more double vision or lightheadedness spells. Denies any complaints/concerns today. Received 5th PEX yesterday. Has been up walking without difficulties. Denies fever/chills, n/v, chest pain, SOB, abdominal pain, leg pain. (Corey Mondragon MD R1) Objective Vitals Vital Signs Date Time Temp Pulse Resp B/P Pulse Ox O2 Delivery O2 Flow Rate FiO2 09/30/16 06:00 57 09/30/16 04:00 97.9 68 21 150/65 92 09/30/16 04:00 68 09/30/16 02:00 56 09/30/16 00:00 98.0 58 17 122/58 95 09/30/16 00:00 58 09/29/16 22:00 95 09/29/16 20:02 59 09/29/16 20:00 Room Air 09/29/16 20:00 97.7 59 13 117/57 97 09/29/16 16:00 98.3 66 20 145/67 94 09/29/16 15:31 138/65 09/29/16 15:30 141/65 09/29/16 15:00 141/65 09/29/16 12:00 97.9 68 20 139/64 94 09/29/16 08:49 99 21 I/O 09/29/16 09/29/16 09/29/16 09/30/16 09/30/16 09/30/16 07:00 15:00 23:00 07:00 15:00 23:00 Intake Total 60 ml 360 ml 60 ml Output Total 400 ml 250 ml 1350 ml 400 ml Balance -340 ml 110 ml -1290 ml -400 ml Intake Oral 60 ml 360 ml 60 ml Output Urine Total 400 ml 250 ml 1350 ml 400 ml # Voids 2 3 4 # Bowel Movements 0 (Corey Mondragon MD R1) Result Diagram: 09/30/1643809/30/16438 Objective Remarks CONST: male sitting up comfortably in chair, in NAD. Normal speech HEENT: Poor group home with multiple missing teeth. Conjunctiva clear. PERRL. EOMI. MMM RESP: Lungs CTAB. No wheezes. CV: RRR. No murmur appreciated. GI: Soft non-tender, non-distended. No masses. +BS. R ventral hernia. MSK: Muscle tone symmetrical, appropriate. NEURO: Speech regular. Strength 5/5 upper and lower extremities. Extremities neurovascularly intact. PSYCH: Affect appropriate. Good insight. Procedures 09/20- RIJ catheter placed 09/21, 09/23, 09/25- Plasmapheresis (Corey Mondragon MD R1) Date of Insertion: Sep 20, 2016 Line: Central Venous Catheter Side: Right Location: Internal, Jugular (Corey Mondragon MD R1) A/P Assessment and Plan 85y male with myasthenia gravis, metastatic colon cancer, and metastatic prostate cancer, presented with dysarthria and dysphagia, admitted 09/19/16 for myasthenia gravis exacerbation. Discharge Planning Pending Neurology recommendations. Recommended minimum 5 plasma exchanges QOD- 09/21, 09/23, 09/25, 09/27, 09/29 PT: [facility] OT: No OT needed ST: Will continue to evaluate if patient will require continued speech therapy on discharge WDW: Dr. Doherty (Corey Mondragon MD R1) Attending Attestation Case reviewed and discussed with the resident team. Agree with plan of care as discussed with me and documented in the resident note. (Chris Doherty MD) Problem List: (1) Myasthenia gravis with acute exacerbation Status: Acute Plan: Presented with dysarthria and dysphagia. Home medicines pyridostigmine and azathioprine. Consulted Neurology, Heme Onc (follows outpatient with Dr. Garcia). RIJ placed 09/20/16 by IR. Plan -episode of slurred speech/double vision, being worked up by neurology; MRI showed small amount of blood, EEG pending. -dysphagia improved -Diet: Mechanical soft today -Speech therapy will continue to evaluate, appreciate recs -Continue Regenol 4mg IV TID Azathioprine 25mg PO BID Neurology and Hematology consulted -Plasmapheresis qod x5. -Last plasmapheresis scheduled for 09/29 -PT/ST/Case management consulted (2) HTN (hypertension) Status: Chronic Plan: History of anxiety - Clonidine Patch 0.1mg Q7days (3) Blepharitis Status: Acute Plan: Erythema improved. Conjunctiva not-injected. Ptosis R eye. Plan -Pt did not tolerate ointment- made it difficult to see, dosed QID -s/p Erythromycin ointment 1g QID x 5-7 days (09/25-09/26 ) -Continue Gentamicin 0.3% solution 1 drop q4h while awake, R eye x5 days (09/26- ) (4) Constipation Status: Chronic Plan: Hx constipation, multiple SBO, s/p multiple surgeries, including partial colectomy for metastatic colon cancer. Home Benefiber, not in formulary. Plan Continue Colace 100mg BID Milk of magnesium 30 mL BID PRN constipation -Start Metamucil powder 1 packet daily, mixed into 8oz water or applesauce, pudding, or other thickened liquid/puree (5) Fibrinogen decreased Status: Acute Plan: Admitted with fibrinogen 223, decreased to low of 66. Likely secondary to plasmapheresis S/p 1 unit cryoprecipitate 09/25 & 1 unit 09/28 per Hematology Oncology -Daily fibrinogen (6) Thrombocytopenia Status: Chronic Plan: Platelets 131k on admission. Moderate thrombocytopenia. -Heparin prophylaxis placed on hold as plasma exchange can produce a predictable decrease in blood coagulation factors that may predispose to bleeding -Daily CBC, continue to monitor -Consider platelet transfusion if spontaneous bleeding, platelets <30k, or per Heme Onc recommendations to tolerate plasmapheresis (7) Hypokalemia Status: Resolved Plan: K stable -Continue to monitor and replete, as needed (8) Hx of malignant neoplasm of prostate Status: Chronic Plan: -Leuprolide 45mg INJ every other week (9) Anxiety Status: Chronic Plan: Home 0.25 Xanax q4h, uses sparingly. Continue to monitor (10) Vitamin B 12 deficiency Status: Chronic Plan: -Received monthly Vit B12 shot 09/22/16 (11) Nutrition, metabolism, and development symptoms Status: Chronic Plan: Fluids: Per PO Electrolytes: wnl. continue to monitor Diet: mechanical soft, heart healthy diet DVT prophylaxis: SCDs, heparin prophylaxis placed on hold as plasma exchange can produce a predictable decrease in blood coagulation factors that may predispose to bleeding GI prophylaxis: not indicated OOB with assistance (Corey Mondragon MD R1) Problem Qualifiers (1) HTN (hypertension): Qualified Code: I10 - Essential hypertension (2) Blepharitis: Qualified Code: H01.001 - Blepharitis of both upper and lower eyelid of right eye, unspecified type (3) Constipation: Qualified Code: K59.01 - Slow transit constipation Corey Mondragon MD R1 Sep 30, 2016 08:26 Chris Doherty MD Oct 01, 2016 10:14
[2016-09-30] MEDS ORDERED: SODIUM CHLOR 0.9% 250 ML INJ 250 ML IV ONE (09:00)
[2016-09-30] MEDS: azaTHIOprine 50 MG TAB PO SCH ×2 (09:00→20:36)
[2016-09-30] MEDS: SODIUM CHLORIDE 0.9% FLUSH 5 ML FLUSH FLUSH SCH ×2 (09:00→20:36)
[2016-09-30] MEDS ORDERED: REMOVE OLD PATCH T-DERMAL SCH (09:00)
[2016-09-30] MEDS: CALCIUM CARBONATE 500 MG CHEWABLE TAB CHEW SCH (09:19)
[2016-09-30] MEDS: FAMOTIDINE 20 MG TAB PO SCH ×2 (09:19→20:37)
[2016-09-30] MEDS: DOCUSATE SODIUM 100 MG CAP PO SCH ×2 (09:19→20:36)
[2016-09-30] MEDS: PSYLLIUM FIBER SF/GF 6 GM POWD PKT PO SCH (09:20)
[2016-09-30] MEDS: predniSONE 20 MG TAB PO SCH (09:20)
[2016-09-30] MEDS: CHOLECALCIFEROL (VIT D3) 5000 UNIT CAP PO SCH (09:20)
[2016-09-30] MEDS: cloNIDine HCL 0.1 MG/24 HR PATCH TD SCH (09:30)
--- NOTE | 2016-09-30 12:34 | PD.CONS ---
(Luis Hernandez MD) HPI Consult Requested By Primary Care Physician Chris Doherty MD (Luis Hernandez MD) Service NRS Consult Requested By Dr. Mickey Loyola Reason for Consult subarachnoid hemorrhage History of Present Illness Mr. Peters is a 86 year old male with known history of Myasthenia Gravis. He is being treated by his Neurologist Dr. Loyola. He has had a few exacerbations but had done well with previous treatments with plasmapheresis and Mestinon. He presented to [place] for another exacerbation with complaints of dysphagia and dysphonia. He reports today his symptoms has since improved following another treatment of plasma exchange. Work up with MRI Brain showed possible small subarachnoid hemorrhage by Dr. Loyola. Mr. Peters denies any recent fall or head trauma. He denies headaches, vomiting, nausea. An MRA Brain did not show aneurysms or AVMs. A neurosurgical evaluation was requested. (Ayesha Dunham) Review of Systems Constitutional: DENIES: Fever, Chills Eyes: COMPLAINS OF: Diplopia Ears, nose, mouth, throat: COMPLAINS OF: Hearing loss Respiratory: DENIES: Cough, Hemoptysis Cardiovascular: DENIES: Chest pain, Syncope Neurologic: COMPLAINS OF: Speech Problems, DENIES: Headache, Localized weakness, Paresthesias Psychiatric: DENIES: Hallucinations (Ayesha Dunham) Past Family Social History Allergies: Coded Allergies: Sulfa (Verified Allergy, Severe, Flushing, 09/20/16) Ativan (Verified Allergy, Intermediate, Psychosis, 09/20/16) Compazine (Verified Allergy, Unknown, JITTERY, 09/20/16) Past Medical History Myasthenia gravis . Hearing loss, b/l hearing aids Colon CA Prostate CA Osteoarthritis Hyperlipidemia Renal stones Skin CA Past Surgical History Colon resection Carpal tunnel release Liver resection Skin CA resection Hernia repair Reported Medications reviewed in EMR Active Ordered Medications Current Medications Medications (Trade) Dose Ordered Sig/Brock Route PRN Reason Start Time Stop Time Status Last Admin Dose Admin Azathioprine (Imuran) 25 mg BID PO 09/20/16 09:00 09/30/16 09:00 Docusate Sodium (Colace) 100 mg BID PO 09/20/16 09:00 09/30/16 09:19 IV Flush (NS Flush) 2 ml UNSCH PRN FLUSH FLUSH AFTER USING IV ACCESS 09/20/16 02:45 IV Flush (NS Flush) 2 ml BID FLUSH 09/20/16 09:00 09/30/16 09:00 Magnesium Hydroxide (Milk Of Magnesia Liq) 30 ml Q12H PRN PO CONSTIPATION 09/20/16 02:45 09/26/16 21:48 Heparin Sodium (Porcine) (Heparin Inj) 5,000 units Q12H SQ 09/20/16 02:45 Hold 09/20/16 15:20 Naloxone HCl (Narcan Inj) 0.4 mg UNSCH PRN IV SEE LABEL COMMENTS 09/20/16 02:45 IV Flush (NS Flush) UNSCH PRN IVF SEE PROTOCOL 09/20/16 11:45 Heparin Sodium (Porcine) UNSCH PRN IVF SEE PROTOCOL 09/20/16 11:45 Sodium Chloride (NS 1000 ml Inj) 1,000 ml @ 0 mls/hr Q48H IV 09/21/16 15:00 09/29/19 23:00 09/29/16 12:28 Sodium Chloride (NS Flush) 10 ml UNSCH PRN IV FLUSH FLUSH AFTER USING IV ACCESS 09/21/16 15:00 09/29/19 23:00 Clonidine (Catapres-Tts 0.1mg Patch.7d) 1 patch Q7D TD 09/23/16 09:00 09/30/16 09:30 Miscellaneous Information 1 Q7D T-DERMAL 09/30/16 09:00 09/30/16 09:00 Psyllium Hydrophilic Mucilloid (Metamucil Smooth Texture Sf/ Gf Pkt) 1 pkt DAILY PO 09/26/16 13:00 09/30/16 09:20 Gentamicin Sulfate (Gentamicin Opht 0.3% Soln) 1 drop Q4HR RIGHT EYE 09/26/16 16:00 09/30/16 08:00 Alprazolam (Xanax) 0.25 mg HS PRN PO SLEEP 09/27/16 01:45 09/29/16 23:47 Prednisone (Deltasone) 30 mg DAILY PO 09/28/16 09:00 09/30/16 09:20 Famotidine (Pepcid) 20 mg Q12HR PO 09/28/16 10:00 09/30/16 09:19 Cholecalciferol (Vitamin D3) 5,000 units DAILY PO 09/28/16 11:00 09/30/16 09:20 Calcium Carbonate (Tums Chew) 500 mg DAILY CHEW 09/28/16 09:00 09/30/16 09:19 Miscellaneous Information Patient in critical care unit? Ass... [id number] 09/29/16 01:15 Chlorhexidine Gluconate (Chlorhexidine 2% Cloth) 3 pack DAILY@04 TOP 09/29/16 04:00 10/03/16 04:01 09/30/16 04:00 Chlorhexidine Gluconate (Chlorhexidine 2% Cloth) 3 pack UNSCH PRN TOP HYGIENIC CARE 09/29/16 01:15 10/04/16 01:00 Pyridostigmine [place] (Mestinon) 120 mg TID@07,12,16 PO 09/29/16 09:30 09/30/16 06:00 Miscellaneous 1 ea 1 ea UNSCH PRN OTHER SEE LABEL COMMENTS 09/29/16 09:45 09/29/16 21:12 Sodium Chloride (NS 250 ml Inj) 250 ml @ 15 mls/hr ONCE ONCE IV 09/30/16 09:00 10/01/16 01:39 09/30/16 09:19 Family History Noncontributory Social History He denies tobacco, etoh abuse or illicit drug use. (Ayesha Dunham) Physical Exam Vital Signs Vital Signs Date Time Temp Pulse Resp B/P Pulse Ox O2 Delivery O2 Flow Rate FiO2 09/30/16 12:00 62 09/30/16 10:00 64 09/30/16 08:00 Room Air 09/30/16 08:00 62 09/30/16 06:00 57 09/30/16 04:00 97.9 68 21 150/65 92 09/30/16 04:00 68 09/30/16 02:00 56 09/30/16 00:00 98.0 58 17 122/58 95 09/30/16 00:00 58 09/29/16 22:00 95 09/29/16 20:02 59 09/29/16 20:00 Room Air 09/29/16 20:00 97.7 59 13 117/57 97 09/29/16 16:00 98.3 66 20 145/67 94 09/29/16 15:31 138/65 09/29/16 15:30 141/65 09/29/16 15:00 141/65 Physical Exam Mr. Peters is alert, awake and oriented to place and person. Speech slightly dysarthric Cranial nerve examination: pupils to be equal, round, and reactive to light. Extra-ocular movements are intact. Facial motor and sensory function are normal and symmetrical. Bilat hearing aids, hearing decreased. Sternocleidomastoid and trapezius muscles have normal and symmetrical strength. Neck is soft and supple. Muscle testing reveals normal bulk and tone. Muscle strength is 5/5 in all muscle groups of both upper extremities including deltoid, biceps, triceps, brachioradialis, and quality review trainer. In the lower extremities, strength is 5/5 in both iliopsoas, quadriceps, hamstrings, plantar flexion, dorsiflexion, he has difficulty with testing extensor hallicus longus. Sensory examination is intact to light touch in both the upper and lower extremities, symmetrically. Deep tendon reflexes are 1+ and symmetrical in the biceps, triceps, and brachioradialis, bilaterally, in the upper extremities. In the lower extremities , the patellar and Achilles are 1+, bilaterally. There is a bilateral plantar flexion response. Hoffmanns sign is negative. There is no clonus or other abnormal reflexes noted. Cerebellar examination is intact . Laboratory Laboratory Tests Test 09/29/16 09/30/16 09/30/16 22:50 04:39 08:22 Urine Color LIGHT-YELLOW Urine Turbidity CLEAR Urine pH 5.5 Urine Specific [facility] [place] 1.007 Urine Protein NEG Urine Glucose (UA) NEG Urine Ketones NEG Urine Occult Blood NEG Urine Nitrite NEG Urine Bilirubin NEG Urine Urobilinogen LESS THAN 2.0 Urine Leukocyte Esterase NEG Urine RBC LESS THAN 1 Microscopic Urinalysis Comment CULT NOT INDICATED White Blood Count 2.7 Red Blood Count 3.67 Hemoglobin 10.5 Hematocrit 31.5 Mean Corpuscular Volume 85.9 Mean Corpuscular Hemoglobin 28.6 Mean Corpuscular Hemoglobin 33.3 Concent Red Cell Distribution Width 17.6 Platelet Count 82 Mean Platelet Volume 9.4 Neutrophils (%) (Auto) 77.7 Lymphocytes (%) (Auto) 9.1 Monocytes (%) (Auto) 11.9 Eosinophils (%) (Auto) 0.9 Basophils (%) (Auto) 0.4 Neutrophils # (Auto) 2.1 Lymphocytes # (Auto) 0.2 Monocytes # (Auto) 0.3 Eosinophils # (Auto) 0.0 Basophils # (Auto) 0.0 CBC Comment AUTO DIFF Differential Comment AUTO DIFF CONFIRMED Platelet Estimate NORMAL Platelet Morphology Comment NORMAL Fibrinogen 66 Sodium Level 140 Potassium Level 3.7 Chloride Level 105 Carbon Dioxide Level 29.0 Anion Gap 6 Blood Urea Nitrogen 16 Creatinine 0.84 Estimat Glomerular Filtration 86 Rate Random Glucose 113 Calcium Level 8.9 Blood Bank Comment (Luis Hernandez MD) Physical Exam Mr. Peters is alert, awake and oriented to place and person. Speech slightly dysarthric but he has missing teeth. Cranial nerve examination: pupils to be equal, round, and reactive to light. Extra-ocular movements are intact. Facial motor and sensory function are normal and symmetrical. Bilat hearing aids, hearing decreased. Sternocleidomastoid and trapezius muscles have normal and symmetrical strength. Neck is soft and supple. Muscle testing reveals normal bulk and tone. Muscle strength is 5/5 in all muscle groups of both upper extremities including deltoid, biceps, triceps, brachioradialis, and quality review trainer. In the lower extremities, strength is 5/5 in both iliopsoas, quadriceps, hamstrings, plantar flexion, dorsiflexion, he has difficulty with testing extensor hallicus longus. Sensory examination is intact to light touch in both the upper and lower extremities, symmetrically. Deep tendon reflexes are 1+ and symmetrical in the biceps, triceps, and brachioradialis, bilaterally, in the upper extremities. In the lower extremities , the patellar and Achilles are 1+, bilaterally. There is a bilateral plantar flexion response. Hoffmanns sign is negative. There is no clonus or other abnormal reflexes noted. Cerebellar examination is intact to [id number] test. (Ayesha Dunham) Result Diagram: 09/30/16 0439 09/30/16 0439 Imaging Last Impressions Head/Brain Mag Res Venography 09/30/16 0000 Signed Impressions: Service Date/Time: September 12:37 - CONCLUSION: No evidence of venous thrombosis. Marco Lewis MD Neck Magnetic Resonance Angiography 09/29/16836 Signed Impressions: Service Date/Time: Thursday, September 29, 2016 10:25 - CONCLUSION: No evidence of significant atherosclerotic vascular disease or hemodynamically significant stenosis. Marco Lewis MD Head Magnetic Resonance Angiography 09/29/1637 Signed Impressions: Service Date/Time: Thursday, September 29, 2016 10:25 - CONCLUSION: 1. Examination is within normal limits for age. 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 Vamshi Ellis MD Brain MRI 09/29/16836 Signed Impressions: Service Date/Time: Thursday, September 29, 2016 10:25 - CONCLUSION: 1. No acute findings. Stable chronic moderate ischemic changes in a periventricular white matter since 2013. No recent infarct. Vamshi Ellis MD ADDENDUM: Small extra-axial fluid collections characteristic of small subdural hematomas of varying age are identified. There are small crescent-shaped collection along the medial cortical margin of the left occipital lobe and along the posterior margin of the left cerebellum which appear acute. The collections are hyperintense on flair imaging and hypointense on susceptibility weighted imaging. There is no significant mass effect, underlying cortical edema or associated intra-axial hemorrhage. Small crescent-shaped subdural collections are seen along the left cerebral convexity and right posterior parietal lobe. These collections are only minimally hyperintense compared to adjacent brain and do not exhibit significant susceptibility. These are characteristic of chronic subdural collections. Marco Lewis MD Chest X-Ray 09/20/16 0239 Signed Impressions: Service Date/Time: Tuesday, September 20, 2016 03:04 - CONCLUSION: No acute disease. No significant change has occurred. Reeec Peters MD Catheter Placement X-Ray 09/20/16 0000 Signed Impressions: Service Date/Time: Tuesday, September 20, 2016 10:48 - CONCLUSION: Uncomplicated line placement as above. Catheter functions well and is ready for use. Agustin Guajardo Jr., MD (Luis Hernandez MD) Imaging Last Impressions Neck Magnetic Resonance Angiography 09/29/16836 Signed Impressions: Service Date/Time: Thursday, September 29, 2016 10:25 - CONCLUSION: No evidence of significant atherosclerotic vascular disease or hemodynamically significant stenosis. Marco Lewis MD Head Magnetic Resonance Angiography 09/29/1637 Signed Impressions: Service Date/Time: Thursday, September 29, 2016 10:25 - CONCLUSION: 1. Examination is within normal limits for age. 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 Vamshi Ellis MD Brain MRI 09/29/1637 Signed Impressions: Service Date/Time: Thursday, September 29, 2016 10:25 - CONCLUSION: 1. No acute findings. Stable chronic moderate ischemic changes in a periventricular white matter since 2013. No recent infarct. Vamshi Ellis MD ADDENDUM: Small extra-axial fluid collections characteristic of small subdural hematomas of varying age are identified. There are small crescent-shaped collection along the medial cortical margin of the left occipital lobe and along the posterior margin of the left cerebellum which appear acute. The collections are hyperintense on flair imaging and hypointense on susceptibility weighted imaging. There is no significant mass effect, underlying cortical edema or associated intra-axial hemorrhage. Small crescent-shaped subdural collections are seen along the left cerebral convexity and right posterior parietal lobe. These collections are only minimally hyperintense compared to adjacent brain and do not exhibit significant susceptibility. These are characteristic of chronic subdural collections. Marco Lewis MD Chest X-Ray 09/20/16 0239 Signed Impressions: Service Date/Time: Tuesday, September 20, 2016 03:04 - CONCLUSION: No acute disease. No significant change has occurred. Reece Peters MD Catheter Placement X-Ray 09/20/16 0000 Signed Impressions: Service Date/Time: Tuesday, September 20, 2016 10:48 - CONCLUSION: Uncomplicated line placement as above. Catheter functions well and is ready for use. Agustin Guajardo Jr., MD (Ayesha Dunham) Attending Statement Neuro. I have reviewed his clinical and radiological findings. Start neuro checks in a serial fashion. I believe MR Peters has incidental small chronic subdural hematomas, whitout clinical significance. I do not recommend surgical intervention. His MRV was negative He has Myastenia gravis with acute exacerbation. Status post plasmapheresis. His condition has improved. Will defer management to dr Vigil Respiratory. pulmonary toilette, nasotracheal suction, and breathing treatments with nebulizers. Hypertension As needed Cardene to maintain systolic blood pressure less than 150. Incisional hernia. Stable PT and OT Nutrition. NPO Renal. monitor closely urine output, BUN and creatinine Endocrine. Monitor serial Acu checks and SSI for tight control ID monitor for signs of infection Protonix for stress ulcer prophylaxis Saroj hose and SCD's for DVT prophylaxis (Luis Hernandez MD) Luis Hernandze MD Sep 30, 2016 12:34 Ayesha Dunham Sep 30, 2016 13:41 Luis Hernandez MD Sep 30, 2016 12:34 Ayesha Dunham Sep 30, 2016 13:41
[2016-09-30] MEDS ORDERED: GADODIAMIDE PF 287 MG/ML 20 ML VIAL (for RAD MRI) IV ONE (13:10)
--- NOTE | 2016-09-30 14:36 | PD.ONC.PN ---
Subjective Subjective Remarks Afebrile overnight. Pt resting in bed with eyes closed. He states he wants to get up and walk. He seems to be in good spirits. He has no complaints. Objective Data Date Time Temp Pulse Resp B/P Pulse Ox O2 Delivery O2 Flow Rate FiO2 09/30/16 12:00 62 09/30/16 10:00 64 09/30/16 08:00 Room Air 09/30/16 08:00 62 09/30/16 06:00 57 09/30/16 04:00 97.9 68 21 150/65 92 09/30/16 04:00 68 09/30/16 02:00 56 09/30/16 00:00 98.0 58 17 122/58 95 09/30/16 00:00 58 09/29/16 22:00 95 09/29/16 20:02 59 09/29/16 20:00 Room Air 09/29/16 20:00 97.7 59 13 117/57 97 09/29/16 16:00 98.3 66 20 145/67 94 09/29/16 15:31 138/65 09/29/16 15:30 141/65 09/29/16 15:00 141/65 09/30/16 09/30/16 09/30/16 07:00 15:00 23:00 Output Total 400 ml Balance -400 ml Result Diagram: 09/30/16 0439 09/30/16 0439 Laboratory Results Laboratory Tests Test 09/29/16 09/30/16 09/30/16 22:50 04:39 08:22 Urine Color LIGHT-YELLOW Urine Turbidity CLEAR Urine pH 5.5 Urine Specific [place] 1.007 Urine Protein NEG mg/dL Urine Glucose (UA) NEG mg/dL Urine Ketones NEG mg/dL Urine Occult Blood NEG Urine Nitrite NEG Urine Bilirubin NEG Urine Urobilinogen LESS THAN 2.0 MG/DL Urine Leukocyte Esterase NEG Urine RBC LESS THAN 1 /hpf Microscopic Urinalysis Comment CULT NOT INDICATED White Blood Count 2.7 TH/MM3 Red Blood Count 3.67 MIL/MM3 Hemoglobin 10.5 GM/DL Hematocrit 31.5 % Mean Corpuscular Volume 85.9 FL Mean Corpuscular Hemoglobin 28.6 PG Mean Corpuscular Hemoglobin 33.3 % Concent Red Cell Distribution Width 17.6 % Platelet Count 82 TH/MM3 Mean Platelet Volume 9.4 FL Neutrophils (%) (Auto) 77.7 % Lymphocytes (%) (Auto) 9.1 % Monocytes (%) (Auto) 11.9 % Eosinophils (%) (Auto) 0.9 % Basophils (%) (Auto) 0.4 % Neutrophils # (Auto) 2.1 TH/MM3 Lymphocytes # (Auto) 0.2 TH/MM3 Monocytes # (Auto) 0.3 TH/MM3 Eosinophils # (Auto) 0.0 TH/MM3 Basophils # (Auto) 0.0 TH/MM3 CBC Comment AUTO DIFF Differential Comment AUTO DIFF CONFIRMED Platelet Estimate NORMAL Platelet Morphology Comment NORMAL Fibrinogen 66 mg/dL Sodium Level 140 MEQ/L Potassium Level 3.7 MEQ/L Chloride Level 105 MEQ/L Carbon Dioxide Level 29.0 MEQ/L Anion Gap 6 MEQ/L Blood Urea Nitrogen 16 MG/DL Creatinine 0.84 MG/DL Estimat Glomerular Filtration 86 ML/MIN Rate Random Glucose 113 MG/DL Calcium Level 8.9 MG/DL Blood Bank Comment Administered Medications Medications (Trade) Dose Ordered Sig/Brock Route PRN Reason Start Time Stop Time Status Last Admin Dose Admin Azathioprine (Imuran) 25 mg BID PO 09/20/16 09:00 09/30/16 09:00 Docusate Sodium (Colace) 100 mg BID PO 09/20/16 09:00 09/30/16 09:19 IV Flush (NS Flush) 2 ml BID FLUSH 09/20/16 09:00 09/30/16 09:00 Magnesium Hydroxide (Milk Of Magnesia Liq) 30 ml Q12H PRN PO CONSTIPATION 09/20/16 02:45 09/26/16 21:48 Heparin Sodium (Porcine) 5000 units 5,000 units Q12H SQ 09/20/16 02:45 Hold 09/20/16 15:20 Sodium Chloride (NS 1000 ml Inj) 1,000 ml @ 0 mls/hr Q48H IV 09/21/16 15:00 09/29/19 23:00 09/29/16 12:28 Clonidine (Catapres-Tts 0.1mg Patch.7d) 1 patch Q7D TD 09/23/16 09:00 09/30/16 09:30 Miscellaneous Information 1 Q7D T-DERMAL 09/30/16 09:00 09/30/16 09:00 Psyllium Hydrophilic Mucilloid (Metamucil Smooth Texture Sf/ Gf Pkt) 1 pkt DAILY PO 09/26/16 13:00 09/30/16 09:20 Gentamicin Sulfate (Gentamicin Opht 0.3% Soln) 1 drop Q4HR RIGHT EYE 09/26/16 16:00 09/30/16 08:00 Alprazolam (Xanax) 0.25 mg HS PRN PO SLEEP 09/27/16 01:45 09/29/16 23:47 Prednisone (Deltasone) 30 mg DAILY PO 09/28/16 09:00 09/30/16 09:20 Famotidine (Pepcid) 20 mg Q12HR PO 09/28/16 10:00 09/30/16 09:19 Cholecalciferol (Vitamin D3) 5,000 units DAILY PO 09/28/16 11:00 09/30/16 09:20 Calcium Carbonate (Tums Chew) 500 mg DAILY CHEW 09/28/16 09:00 09/30/16 09:19 Chlorhexidine Gluconate (Chlorhexidine 2% Cloth) 3 pack DAILY@04 TOP 09/29/16 04:00 10/03/16 04:01 09/30/16 04:00 Pyridostigmine [place] (Mestinon) 120 mg TID@07,12,16 PO 09/29/16 09:30 09/30/16 06:00 Miscellaneous 1 ea 1 ea UNSCH PRN OTHER SEE LABEL COMMENTS 09/29/16 09:45 09/29/16 21:12 Sodium Chloride (NS 250 ml Inj) 250 ml @ 15 mls/hr ONCE ONCE IV 09/30/16 09:00 10/01/16 01:39 09/30/16 09:19 Objective Remarks GENERAL: Elderly male lying in bed in no distress. SKIN: Warm and dry. Vascath to R neck asymptomatic. HEAD: Normocephalic. EYES: No injection or drainage. NECK: Supple, trachea midline. CARDIOVASCULAR: +S1/S2. No murmur appreciated. RESPIRATORY: Lungs clear throughout. Breathing easy and unlabored. GASTROINTESTINAL: Abdomen soft, non-tender, nondistended. EXTREMITIES: No edema. MUSCULOSKELETAL: Generalized weakness. NEUROLOGICAL: No obvious focal deficit. Awake, alert, and oriented x3. Assessment/Plan Problem List: (1) Myasthenia gravis Status: Chronic Plan: 09/30/16: Orders written for pt to get 2 more plasma exchange treatments. He will get one tomorrow (10/01) and Tuesday (10/03). Will change to plasma from albumin on treatments. Will reconsult PT to help with conditioning. Fibrinogen level at 66 today. No bleeding. Will give 1 unit cryoprecipitate. 09/29/16: Plasma exchange #5 today. Labs stable. Plan for two more treatments as an outpatient. Recheck labs in am. 09/28/16: off day. fibrinogen 67. monitor for bleeding. Give 1 unit cryo. Neurology note reviewed, plan for a total of 7 PEX now. consider outpatient after steroids started. 09/27/16: PEX #4 today. Platelets 84k today. Up from 76k yesterday. Received 1 unit cryo over the weekend. Fibrinogen 130 today. He is overall improving. 09/25/15: PEX #3. [id number]. will give 1 unit cryo today after PEX 09/24/15: Second plasma exchange yesterday. He states his swallowing and speech seem improved today. Plan for exchange #3 tomorrow. Continue supportive care, PT. 09/23/16 Had second plasma phereses today . He is feeling somewhat better. continue pheresis QOD 09/22/16: Had 1st plasma exchange yesterday. Still c/o trouble swallowing. Speech therapy following. He should get exchange #2 tomorrow. 09/21/16: proceed with day 1 of PEX. monitor CBC, coags, calcium --heparin prophylaxis placed on hold as plasma exchange can produce a predictable decrease in blood coagulation factors that may predispose to bleeding. --PEX QOD x 7 total doses. Assessment 85y/o male with myasthenia gravis admitted with exacerbation. Hematology consulted to coordinate plasma exchange qod x 5. Attending Statement NO NEW C/O D/W DR HASSAN. HE HAS CEREBRAL BLEED. MAY BE RELATED TO HYPOFIBRINOGENEMIA FROM PHERESIS. WILL ASK PHERESIS NURSE TO DO PLASMA EXCHANGE WITH MIXTURE OF ALBUMIN AND PLASMA WILL DO 2 MORE PHERESIS. The exam, history, and the medical decision-making described in the above note were completed with the assistance of the mid-level provider. I reviewed and agree with the findings presented. I attest that I had a [id number] encounter with the patient on the same day, and personally performed and documented my assessment and findings in the medical record. Halle Deng Sep 30, 2016 14:36 Gabriel Garcia MD Sep 30, 2016 18:24
--- NOTE | 2016-09-30 14:47 | RADRPT ---
EXAM DATE/TIME: 09/30/2016 12:37 COMPARISON: No previous studies available for comparison. INDICATIONS : Thrombus. CONTRAST: 20 cc Omniscan (gadodiamide) IV MEDICAL HISTORY : Mysthesia gravis SURGICAL HISTORY : None. ENCOUNTER: Initial ACUITY: 1 day PAIN SCORE: 2/10 LOCATION: Bilateral cranial FINDINGS: The cortical veins, deep venous structures and dural sinuses are patent without evidence of thrombosi s. The transverse sinuses, sigmoid sinuses and internal jugular veins are asymmetric with the right side being larger. CONCLUSION: No evidence of venous thrombosis. Marco Lewis MD on September 30, 2016 at 14:40 Board Certified Radiologist. This report was verified electronically.
[2016-10-01] VITALS (10 sets, daily range): BP systolic 101–161; BP diastolic 56–72; PULSE 59–73; RESP 16–18; TEMP 96.5–98.8; O2SAT 95–100
[2016-10-01] MEDS ORDERED: SODIUM CHLOR 0.9% 1000 ML IV SCH (01:00)
[2016-10-01] MEDS ORDERED: HEPARIN SODIUM - 10,000 UNITS/ML 1ML VIAL IVF PRN (01:00)
[2016-10-01] MEDS ORDERED: SODIUM CHLORIDE 0.9% 10 ML FLUSH IV FLUSH PRN (01:00)
[2016-10-01] MEDS ORDERED: diphenhydrAMINE HCL 50 MG/ML VIAL IV PUSH PRN (01:00)
[2016-10-01] MEDS: CALCIUM GLUCONATE INJ 4 GM in SODIUM CHLOR 0.9% 250 ML INJ 200 ML IV SCH (02:00)
[2016-10-01] MEDS: ALBUMIN HUMAN 5% 25 GM/500 ML BOTTLE OTHER SCH (02:01)
[2016-10-01] MEDS: ANTICOAGULANT CITRATE DEXTROSE SOLN-A 1L OTHER SCH (02:05)
[2016-10-01] MEDS: FAMOTIDINE 20 MG/2 ML VIAL IV SCH (02:23)
[2016-10-01] MEDS: CHLORHEXIDINE GLUCONATE 2 % 1 PACK (2 CLOTHS)(taper/protocol) TOP SCH (03:45)
[2016-10-01] MEDS ORDERED: HEPARIN SODIUM - SQ 10,000 UNITS/ML VIAL SQ SCH (03:45)
[2016-10-01] MEDS: GENTAMICIN SULFATE 0.3% OPHT SOLN 5 ML BTL RIGHT EYE SCH ×6 (03:46→23:31)
[2016-10-01] MEDS: ALPRAZolam 0.25 MG TAB PO PRN ×2 (03:47→23:31)
[2016-10-01] MEDS: PYRIDOSTIGMINE BROMIDE 60 MG TAB PO SCH ×3 (05:56→17:23)
[2016-10-01 07:12] LABS: AUTOMATED NEUTROPHIL # 2.3 TH/MM3 (1.8-7.7); BASOPHIL % 0.9 % (0.0-2.0); EOSINOPHIL # 0.1 TH/MM3 (0-0.4); EOSINOPHIL % 4.4 % (0.0-4.0); HEMATOCRIT 31.3 % (39.0-51.0); LYMPH % 13.8 % (9.0-44.0); LYMPHOCYTE # 0.5 TH/MM3 (1.0-4.8); MEAN CELL VOLUME 86.9 FL (80.0-100.0); MEAN CORPUSCULAR HEMOGLOBIN 28.5 PG (27.0-34.0); MEAN CORPUSCULAR HGB CONC 32.8 % (32.0-36.0); MONO % 11.1 % (0.0-8.0); NEUT % 69.8 % (16.0-70.0); PLATELET COUNT 94 TH/MM3 (150-450); RED CELL DISTRIBUTION WIDTH 18.8 % (11.6-17.2); WHITE BLOOD COUNT 3.3 TH/MM3 (4.0-11.0)
[2016-10-01 07:15] LABS: HEMO FLAGS AUTO DIFF
[2016-10-01 07:33] LABS: BICARBONATE 26.9 MEQ/L (21.0-32.0); POTASSIUM 3.7 MEQ/L (3.5-5.1)
[2016-10-01 07:37] LABS: APTT (PATIENT) 43.2 SEC (24.3-30.1); INTERNATIONAL NORMALIZED RATIO 1.3 RATIO
[2016-10-01] MEDS ORDERED: SODIUM CHLOR 0.9% 250 ML INJ 250 ML IV ONE (08:00)
[2016-10-01] MEDS: DOCUSATE SODIUM 100 MG CAP PO SCH ×2 (08:30→20:10)
[2016-10-01] MEDS: CALCIUM CARBONATE 500 MG CHEWABLE TAB CHEW SCH (08:30)
[2016-10-01] MEDS: FAMOTIDINE 20 MG TAB PO SCH ×2 (08:30→20:10)
[2016-10-01] MEDS: PSYLLIUM FIBER SF/GF 6 GM POWD PKT PO SCH (08:30)
[2016-10-01] MEDS: predniSONE 20 MG TAB PO SCH ×2 (08:30→09:00)
[2016-10-01] MEDS: CHOLECALCIFEROL (VIT D3) 5000 UNIT CAP PO SCH (08:31)
[2016-10-01] MEDS: azaTHIOprine 50 MG TAB PO SCH ×2 (08:31→20:09)
[2016-10-01 08:37] LABS: PLATELET ESTIMATE SMEAR LOW (NORMAL); PLATELET MORPHOLOGY NORMAL (NORMAL); SCAN/DIFF AUTO DIFF CONFIRMED
--- NOTE | 2016-10-01 08:50 | HHI.FPPN ---
Subjective Remarks Patient seen and examined this morning. Denies any complaints/concerns. Reports feeling back to baseline. No difficulties breathing or swallowing. No double vision. No weakness. Denies fever/chills, n/v, chest pain, SOB, abdominal pain, leg pain. (Corey Mondragon MD R1) Objective Vitals Vital Signs Date Time Temp Pulse Resp B/P Pulse Ox O2 Delivery O2 Flow Rate FiO2 10/01/16 04:00 98.0 70 18 101/59 95 10/01/16 00:00 97.2 61 18 132/63 97 09/30/16 20:00 64 09/30/16 20:00 97.8 67 18 151/64 94 09/30/16 20:00 Room Air 09/30/16 18:30 96.8 64 16 120/57 99 09/30/16 18:00 116 09/30/16 16:00 97.9 59 17 127/63 98 09/30/16 16:00 59 09/30/16 14:00 79 09/30/16 12:00 98.1 64 20 138/63 96 09/30/16 12:00 62 09/30/16 10:00 64 I/O 09/30/16 09/30/16 09/30/16 10/01/16 10/01/16 10/01/16 07:00 15:00 23:00 07:00 15:00 23:00 Intake Total 320 ml 720 ml 480 ml Output Total 400 ml 700 ml 200 ml Balance -400 ml -380 ml 720 ml 280 ml Intake Oral 320 ml 720 ml 480 ml Output Urine Total 400 ml 700 ml 200 ml # Voids 5 2 # Bowel Movements 1 (Corey Mondragon MD R1) Result Diagram: 10/01/16 0600 10/01/16 0600 Objective Remarks CONST: male sitting up comfortably in chair, in NAD. Normal speech HEENT: Poor half-way with multiple missing teeth. Conjunctiva clear. PERRL. EOMI. MMM RESP: Lungs CTAB. No wheezes. CV: RRR. No murmur appreciated. GI: Soft non-tender, non-distended. No masses. +BS. R ventral hernia. MSK: Muscle tone symmetrical, appropriate. NEURO: Speech regular. Strength 5/5 upper and lower extremities. Extremities neurovascularly intact. PSYCH: Affect appropriate. Good insight. Procedures 09/20- RIJ catheter placed 09/21, 09/23, 09/25- Plasmapheresis (Corey Mondragon MD R1) Date of Insertion: Sep 20, 2016 Line: Central Venous Catheter Side: Right Location: Internal, Jugular (Corey Mondragon MD R1) A/P Assessment and Plan 85y male with myasthenia gravis, metastatic colon cancer, and metastatic prostate cancer, presented with dysarthria and dysphagia, admitted 09/19/16 for myasthenia gravis exacerbation. Discharge Planning Pending Neurology recommendations. PEX today and Tuesday Possible discharge on Tuesday PT: [facility] OT: No OT needed ST: Will continue to evaluate if patient will require continued speech therapy on discharge WDW: Dr. Doherty (Corey Mondragon MD R1) Attending Attestation Patient seen and examined. Case reviewed and discussed with the resident team. Agree with plan of care as discussed with me and documented in the resident note. (Chris Doherty MD) Problem List: (1) Myasthenia gravis with acute exacerbation Status: Acute Plan: Presented with dysarthria and dysphagia. Home medicines pyridostigmine and azathioprine. Consulted Neurology, Heme Onc (follows outpatient with Dr. Garcia). RIJ placed 09/20/16 by IR. Plan -episode of slurred speech/double vision couple days ago, being worked up by neurology; -Neurosurgery consulted, recommend no surgical intervention. -dysphagia improved -Diet: Mechanical soft -Speech therapy will continue to evaluate, appreciate recs -Continue Regenol 4mg IV TID Azathioprine 25mg PO BID -Prednisone 60mg daily Neurology and Hematology consulted -Due for PEX today & on Tuesday -PT/ST/Case management consulted (2) HTN (hypertension) Status: Chronic Plan: History of anxiety - Clonidine Patch 0.1mg Q7days (3) Blepharitis Status: Acute Plan: Erythema improved. Conjunctiva not-injected. Ptosis R eye. Plan -Pt did not tolerate ointment- made it difficult to see, dosed QID -s/p Erythromycin ointment 1g QID x 5-7 days (09/25-09/26 ) -Continue Gentamicin 0.3% solution 1 drop q4h while awake, R eye x5 days (1/29- ) (4) Constipation Status: Chronic Plan: Hx constipation, multiple SBO, s/p multiple surgeries, including partial colectomy for metastatic colon cancer. Home Benefiber, not in formulary. Plan Continue Colace 100mg BID Milk of magnesium 30 mL BID PRN constipation -Start Metamucil powder 1 packet daily, mixed into 8oz water or applesauce, pudding, or other thickened liquid/puree (5) Fibrinogen decreased Status: Acute Plan: Admitted with fibrinogen 223, decreased to low of 66. Likely secondary to plasmapheresis S/p 1 unit cryoprecipitate 09/25 & 1 unit 09/28 per Hematology Oncology -Daily fibrinogen -Given 1 unit cryoprecipitate 09/30 (6) Thrombocytopenia Status: Chronic Plan: Platelets 131k on admission. Moderate thrombocytopenia. -Heparin prophylaxis placed on hold as plasma exchange can produce a predictable decrease in blood coagulation factors that may predispose to bleeding -Daily CBC, continue to monitor -Consider platelet transfusion if spontaneous bleeding, platelets <30k, or per Heme Onc recommendations to tolerate plasmapheresis (7) Hypokalemia Status: Resolved Plan: K stable -Continue to monitor and replete, as needed (8) Hx of malignant neoplasm of prostate Status: Chronic Plan: -Leuprolide 45mg INJ every other week (9) Anxiety Status: Chronic Plan: Home 0.25 Xanax q4h, uses sparingly. Continue to monitor (10) Vitamin B 12 deficiency Status: Chronic Plan: -Received monthly Vit B12 shot 09/22/16 (11) Nutrition, metabolism, and development symptoms Status: Chronic Plan: Fluids: Per PO Electrolytes: wnl. continue to monitor Diet: mechanical soft, heart healthy diet DVT prophylaxis: SCDs, heparin prophylaxis placed on hold as plasma exchange can produce a predictable decrease in blood coagulation factors that may predispose to bleeding GI prophylaxis: not indicated OOB with assistance (Corey Mondragon MD R1) Problem Qualifiers (1) HTN (hypertension): Qualified Code: I10 - Essential hypertension (2) Blepharitis: Qualified Code: H01.001 - Blepharitis of both upper and lower eyelid of right eye, unspecified type (3) Constipation: Qualified Code: K59.01 - Slow transit constipation Corey Mondragon MD R1 Oct 01, 2016 08:50 Chris Doherty MD Oct 01, 2016 14:57
--- NOTE | 2016-10-01 08:54 | HHI.PR ---
Subjective Remarks no new spells no resendiz Objective Vital Signs Date Time Temp Pulse Resp B/P Pulse Ox O2 Delivery O2 Flow Rate FiO2 10/01/16 04:00 98.0 70 18 101/59 95 10/01/16 00:00 97.2 61 18 132/63 97 09/30/16 20:00 64 09/30/16 20:00 97.8 67 18 151/64 94 09/30/16 20:00 Room Air 09/30/16 18:30 96.8 64 16 120/57 99 09/30/16 18:00 116 09/30/16 16:00 97.9 59 17 127/63 98 09/30/16 16:00 59 09/30/16 14:00 79 09/30/16 12:00 98.1 64 20 138/63 96 09/30/16 12:00 62 09/30/16 10:00 64 I/O 09/30/16 09/30/16 09/30/16 10/01/16 10/01/16 10/01/16 07:00 15:00 23:00 07:00 15:00 23:00 Intake Total 320 ml 720 ml 480 ml Output Total 400 ml 700 ml 200 ml Balance -400 ml -380 ml 720 ml 280 ml Intake Oral 320 ml 720 ml 480 ml Output Urine Total 400 ml 700 ml 200 ml # Voids 5 2 # Bowel Movements 1 Result Diagram: 10/01/16 0600 10/01/16 0600 Objective Remarks voice same facial strength eye closure and buccal much better vff eomi no nyst face sym tongue mid 5/5 t/o no double now ox3 alert Assessment and Plan Assessment and Plan imp mg pex sp #5 yest fibrinogen low bulbar fxt much better eating now solids well oob can hep lock while oob and ambulate better bp control immuran will need extended course of plasma exchange he is doing better steroids 30mg today will inc tomorrow plt watch stable plan is to put on steroids to day and inc tomorrow and continue pex for at least 7 sessions he could do some outpatient if he tolerates steroids ok over next few days 09/29/16 possible tia and will do maddox i think more likey vasovagal and brought out sx of mg as he felt like he might pass out but did not sr overnoc in icu now maddox ok pex if mri neg today may be alittle worse after steroid start stay on 30 mg for today 09/30/16 i reviewed mri there is a small amt of acute blood in interhemispheric fissure posteriorly on left by occipital lobe and left cbllr extaaxial old left sdh small check eeg idw rads i kevin stoddard will change to ffp with pex check mrv fu holter i think this likely explains his episode the other noc have bryan comment no aneurism on mra 10/01/16 no new problems no resendiz mrv yest nl i am inc pred today to 60 mg am i kevin stoddard replacement today and in all future pex he will get number 7 in am and if on tuesday he feels well and fibrinogen not too low he could dc and see dr stoddard on tue for another pex and possible pull line then so we need to check his fibinogen and cbc tuesday b4 dc fu holter he will call me on tuesday we will recheck mri brain today make sure no inc is sdh size i kevin adams yest dr weinstein thought spontaneous sdh Mickey Loyola MD Oct 01, 2016 08:54
[2016-10-01] MEDS: SODIUM CHLORIDE 0.9% FLUSH 5 ML FLUSH FLUSH SCH ×2 (09:00→20:10)
[2016-10-01 09:07] LABS: PLATELET ESTIMATE SMEAR LOW (NORMAL)
--- NOTE | 2016-10-01 12:27 | PD.ONC.PN ---
Subjective Subjective Remarks Afebrile overnight. Patient resting comfortably without complaint. He denies headache. he received plasma exchange at 2AM this morning. No bleeding. No numbness or tingling. Objective Data Date Time Temp Pulse Resp B/P Pulse Ox O2 Delivery O2 Flow Rate FiO2 10/01/16 11:27 96.5 59 16 161/72 96 10/01/16 10:21 98.8 61 18 135/57 97 10/01/16 09:15 59 16 121/59 97 10/01/16 04:00 98.0 70 18 101/59 95 10/01/16 00:00 97.2 61 18 132/63 97 09/30/16 20:00 64 09/30/16 20:00 97.8 67 18 151/64 94 09/30/16 20:00 Room Air 09/30/16 18:30 96.8 64 16 120/57 99 09/30/16 18:00 116 09/30/16 16:00 97.9 59 17 127/63 98 09/30/16 16:00 59 09/30/16 14:00 79 10/01/16 10/01/16 10/01/16 07:00 15:00 23:00 Intake Total 480 ml Output Total 200 ml Balance 280 ml Result Diagram: 10/01/16 0600 10/01/16 0600 Laboratory Results Laboratory Tests Test 09/30/16 10/01/16 10/01/16 20:23 06:00 08:10 Blood Bank Comment White Blood Count 3.3 TH/MM3 Red Blood Count 3.60 MIL/MM3 Hemoglobin 10.3 GM/DL Hematocrit 31.3 % Mean Corpuscular Volume 86.9 FL Mean Corpuscular Hemoglobin 28.5 PG Mean Corpuscular Hemoglobin 32.8 % Concent Red Cell Distribution Width 18.8 % Platelet Count 94 TH/MM3 Mean Platelet Volume 9.3 FL Neutrophils (%) (Auto) 69.8 % Lymphocytes (%) (Auto) 13.8 % Monocytes (%) (Auto) 11.1 % Eosinophils (%) (Auto) 4.4 % Basophils (%) (Auto) 0.9 % Neutrophils # (Auto) 2.3 TH/MM3 Lymphocytes # (Auto) 0.5 TH/MM3 Monocytes # (Auto) 0.4 TH/MM3 Eosinophils # (Auto) 0.1 TH/MM3 Basophils # (Auto) 0.0 TH/MM3 CBC Comment AUTO DIFF Differential Comment AUTO DIFF CONFIRMED Platelet Estimate LOW Platelet Morphology Comment NORMAL Prothrombin Time 14.0 SEC Prothromb Time International 1.3 RATIO Ratio Activated Partial 43.2 SEC Thromboplast Time Fibrinogen 77 mg/dL Sodium Level 141 MEQ/L Potassium Level 3.7 MEQ/L Chloride Level 106 MEQ/L Carbon Dioxide Level 26.9 MEQ/L Anion Gap 8 MEQ/L Blood Urea Nitrogen 18 MG/DL Creatinine 0.79 MG/DL Estimat Glomerular Filtration 93 ML/MIN Rate Random Glucose 100 MG/DL Calcium Level 9.1 MG/DL Administered Medications Medications (Trade) Dose Ordered Sig/Brock Route PRN Reason Start Time Stop Time Status Last Admin Dose Admin Azathioprine (Imuran) 25 mg BID PO 09/20/16 09:00 10/01/16 08:31 Docusate Sodium (Colace) 100 mg BID PO 09/20/16 09:00 10/01/16 08:30 IV Flush (NS Flush) 2 ml BID FLUSH 09/20/16 09:00 10/01/16 09:00 Magnesium Hydroxide 30 ml 30 ml Q12H PRN PO CONSTIPATION 09/20/16 02:45 09/26/16 21:48 Sodium Chloride (NS 1000 ml Inj) 1,000 ml @ 0 mls/hr Q48H IV 09/21/16 15:00 09/29/19 23:00 09/29/16 12:28 Clonidine (Catapres-Tts 0.1mg Patch.7d) 1 patch Q7D TD 09/23/16 09:00 09/30/16 09:30 Miscellaneous Information 1 Q7D T-DERMAL 09/30/16 09:00 09/30/16 09:00 Psyllium Hydrophilic Mucilloid (Metamucil Smooth Texture Sf/ Gf Pkt) 1 pkt DAILY PO 09/26/16 13:00 10/01/16 08:30 Gentamicin Sulfate (Gentamicin Opht 0.3% Soln) 1 drop Q4HR RIGHT EYE 09/26/16 16:00 10/01/16 08:00 Alprazolam (Xanax) 0.25 mg HS PRN PO SLEEP 09/27/16 01:45 10/01/16 03:47 Famotidine (Pepcid) 20 mg Q12HR PO 09/28/16 10:00 10/01/16 08:30 Cholecalciferol (Vitamin D3) 5,000 units DAILY PO 09/28/16 11:00 10/01/16 08:31 Calcium Carbonate (Tums Chew) 500 mg DAILY CHEW 09/28/16 09:00 10/01/16 08:30 Chlorhexidine Gluconate (Chlorhexidine 2% Cloth) 3 pack DAILY@04 TOP 09/29/16 04:00 10/03/16 04:01 10/01/16 03:45 Pyridostigmine [place] (Mestinon) 120 mg TID@07,12,16 PO 09/29/16 09:30 10/01/16 05:56 Miscellaneous (Pill Splitter) 1 ea UNSCH PRN OTHER SEE LABEL COMMENTS 09/29/16 09:45 09/29/16 21:12 Albumin Human 150 gm 150 gm Q48H OTHER 10/01/16 01:00 10/03/16 01:01 10/01/16 02:01 Sodium Chloride (NS 1000 ml Inj) 1,000 ml @ 0 mls/hr Q0M IV 10/01/16 01:00 10/03/16 06:00 10/01/16 02:02 Anticoagulant Citrate Dextose Brandy A (Acd Formula Inj) 1,000 ml Q48H OTHER 10/01/16 01:00 10/03/16 01:01 10/01/16 02:05 Heparin Sodium (Porcine) 5000 units 5,000 units UNSCH PRN IVF SEE LABEL COMMENTS 10/01/16 01:00 10/03/16 06:00 10/01/16 03:44 Calcium Gluconate/ Sodium Chloride (Calcium Gluconate Inj/NS 250 ml Inj) 240 ml @ 120 mls/hr Q48H IV 10/01/16 01:00 10/03/16 02:59 10/01/16 02:00 Famotidine 20 mg 20 mg Q48H IV 10/01/16 01:00 10/03/16 01:01 10/01/16 02:23 Sodium Chloride (NS 250 ml Inj) 250 ml @ 15 mls/hr ONCE ONCE IV 10/01/16 08:00 10/02/16 00:39 10/01/16 08:00 Prednisone (Deltasone) 60 mg DAILY PO 10/01/16 09:00 2/3/17 09:00 Objective Remarks GENERAL: Elderly male, sitting up in bed in nad. SKIN: Warm and dry. HEAD: Normocephalic. EYES: No injection or drainage. NECK: Supple, trachea midline. CARDIOVASCULAR: Regular rate and rhythm RESPIRATORY: Breath sounds equal bilaterally. No accessory muscle use. GASTROINTESTINAL: Abdomen soft, non-tender, nondistended. EXTREMITIES: No cyanosis NEUROLOGICAL: awake and alert, normal speech. moving all extremities. facial movements symmetric. Assessment/Plan Problem List: (1) Myasthenia gravis Status: Chronic Plan: 10/01/16: given plasma exchange last night with 2 units FFP and the rest 5 % albumin. fibrinogen 77 this AM, given 1 unit cryo 09/30/16: Orders written for pt to get 2 more plasma exchange treatments. He will get one tomorrow (10/01) and Tuesday (10/03). Will change to plasma from albumin on treatments. Will reconsult PT to help with conditioning. Fibrinogen level at 66 today. No bleeding. Will give 1 unit cryoprecipitate. 09/29/16: Plasma exchange #5 today. Labs stable. Plan for two more treatments as an outpatient. Recheck labs in am. 09/28/16: off day. fibrinogen 67. monitor for bleeding. Give 1 unit cryo. Neurology note reviewed, plan for a total of 7 PEX now. consider outpatient after steroids started. 09/27/16: PEX #4 today. Platelets 84k today. Up from 76k yesterday. Received 1 unit cryo over the weekend. Fibrinogen 130 today. He is overall improving. 09/25/15: PEX #3. [id number]. will give 1 unit cryo today after PEX 09/24/15: Second plasma exchange yesterday. He states his swallowing and speech seem improved today. Plan for exchange #3 tomorrow. Continue supportive care, PT. 09/23/16 Had second plasma phereses today . He is feeling somewhat better. continue pheresis QOD 09/22/16: Had 1st plasma exchange yesterday. Still c/o trouble swallowing. Speech therapy following. He should get exchange #2 tomorrow. 09/21/16: proceed with day 1 of PEX. monitor CBC, coags, calcium --heparin prophylaxis placed on hold as plasma exchange can produce a predictable decrease in blood coagulation factors that may predispose to bleeding. --PEX QOD x 7 total doses. Assessment 85y/o male with myasthenia gravis admitted with exacerbation. Hematology consulted to coordinate plasma exchange Attending Statement feels fine. He thinks he is back to normal. No problem with swallowing or speech. NO More double vision. Had pheresis last night. Tolerated well. Give cryo now for fibrinogen<100 d/w Dr Loyola. The exam, history, and the medical decision-making described in the above note were completed with the assistance of the mid-level provider. I reviewed and agree with the findings presented. I attest that I had a [id number] encounter with the patient on the same day, and personally performed and documented my assessment and findings in the medical record. Elly Grimaldo Oct 01, 2016 12:26 Gabriel Garcia MD Oct 01, 2016 17:30
[2016-10-01] MEDS: SODIUM CHLOR 0.9% 1000 ML IV SCH (15:00)
--- NOTE | 2016-10-01 17:13 | RADRPT ---
EXAM DATE/TIME: 10/01/2016 15:05 [facility] COMPARISON: MRI BRAIN W/O CONTRAST, August 07, 2014, 20:40. INDICATIONS: Dizziness. Diplopia. MEDICAL HISTORY: Myasthenia gravis. SURGICAL HISTORY: Colon resection. Inguinal hernia repair. Liver resection. ENCOUNTER: Initial ACUITY: 2 day PAIN SCORE: 0/10 LOCATION: Cranial TECHNIQUE: Multiplanar, multisequence MRI of the brain was performed without contrast. FINDINGS: Scattered areas of high signal intensity are present in the periventricular white matter. There is no restricted diffusion evident. Midline structures are intact. There is no parenchymal hemorrhage in the midline. CONCLUSION: 1. Atrophy with marked periventricular white matter changes. 2. Negative for acute infarct. Jose Simental MD FACR on October 01, 2016 at 15:50 Board Certified Radiologist. This report was verified electronically.
--- NOTE | 2016-10-01 17:31 | HM ---
Date Performed: 09/29/2016 Time Performed: 18:17:00 HOOKUP DATE: 09/29/16 06:17:00 PM Wed ANALYSIS START TIME: 09/29/2016 6:22:00 PM ANALYSIS END TIME: 09/30/2016 12:20:21 PM PATIENT AGE: 85 PATIENT HEIGHT: 72 PATIENT WEIGHT: 161 DRUG LIST: ROOM # [id number] - P PATIENT DIAGNOSIS: MYASTHENIA GRAVIS EXASERBATION TEST NARRATIVE: The patient's average heart rate was 65 BPM. No episodes of tachycardia wer e noted. No episodes of bradycardia were noted. No pauses exceeding 2.0 seconds were noted. 3186 ventricular ectopics, which represented 5% of the total beat count, were noted. The highest van tricular ectopic frequency occurred from 09:00 AM to 10:00 AM Leanne. During this time 265 VE(s) occurr ed. Ventricular ectopics were observed as 3012 isolated beat(s) and as 87 couplet(s). No runs were noted. Some of the ventricular beats occurred in bigeminal cycles. 451 supraventricular ectopics , which represented 1% of the total beat count, were noted. The highest supraventricular ectopic chloé quency occurred from 10:00 AM to 11:00 AM Leanne. During this time 239 SVE(s) occurred. No episodes of ST depression (defined as -1.0 mm or more) were noted in channel 1. No episodes of ST depression (defined as -1.0 mm or more) were noted in channel 2. No episodes of ST depression (defined as -1.0 mm or more) were noted in channel 3. TEST INTERPRETATION: Patient undergoes a holter monitor to access weakness in a setting of myast henia gravis. The reason for the holter is not actually stated. No diary is provided. Holter monitor shows Sinus rhythm with premature atrial contractions and atrial couplets. Occasional PVC's are noted. No significant t achyarrhythmias or bradyarrhythmias are noted. Conclusions: Normal sinus rhythm with premature atria l contractions and couplets. Occasional premature ventricular contractions. No significant tachyarrhy thmias or bradyarrhythmias. No diary provided so it is unknown as to whether the patient is symptomat ic. Signed by : Annabelle Garrett
[2016-10-02] VITALS (10 sets, daily range): BP systolic 102–136; BP diastolic 56–72; PULSE 54–66; RESP 16–18; TEMP 96.3–97.5; O2SAT 97–100
[2016-10-02] MEDS: CHLORHEXIDINE GLUCONATE 2 % 1 PACK (2 CLOTHS)(taper/protocol) TOP SCH (04:00)
[2016-10-02] MEDS: GENTAMICIN SULFATE 0.3% OPHT SOLN 5 ML BTL RIGHT EYE SCH ×5 (04:00→21:26)
[2016-10-02] MEDS ORDERED: SODIUM CHLORIDE 0.9% 10 ML FLUSH IV FLUSH PRN (06:00)
[2016-10-02] MEDS ORDERED: diphenhydrAMINE HCL 50 MG/ML VIAL IV PUSH PRN (06:00)
[2016-10-02] MEDS ORDERED: HEPARIN SODIUM - 10,000 UNITS/ML 1ML VIAL IVF PRN (06:00)
[2016-10-02] MEDS ORDERED: SODIUM CHLOR 0.9% 1000 ML IV SCH (06:00)
[2016-10-02] MEDS ORDERED: CALCIUM GLUCONATE INJ 4 GM in SODIUM CHLOR 0.9% 250 ML INJ 200 ML IV SCH (06:00)
[2016-10-02] MEDS ORDERED: ANTICOAGULANT CITRATE DEXTROSE SOLN-A 1L OTHER SCH (06:00)
[2016-10-02] MEDS: PYRIDOSTIGMINE BROMIDE 60 MG TAB PO SCH ×3 (06:27→15:22)
[2016-10-02] MEDS: PSYLLIUM FIBER SF/GF 6 GM POWD PKT PO SCH (09:00)
--- NOTE | 2016-10-02 09:21 | PD.ONC.PN ---
Subjective Subjective Remarks Afebrile overnight. Patient resting comfortably without complaint. He denies headache. He denies bleeding. Objective Data Date Time Temp Pulse Resp B/P Pulse Ox O2 Delivery O2 Flow Rate FiO2 10/02/16 04:00 97.2 60 16 115/59 97 10/02/16 00:00 97.1 61 16 131/64 100 10/01/16 20:00 63 10/01/16 20:00 63 10/01/16 20:00 Room Air 10/01/16 20:00 97.0 62 16 138/60 100 10/01/16 16:00 97.2 62 16 135/60 96 10/01/16 15:26 97 Room Air 10/01/16 13:35 61 10/01/16 12:00 96.6 73 16 124/56 97 10/01/16 10:21 98.8 61 18 135/57 97 10/02/16 10/02/16 10/02/16 07:00 15:00 23:00 Intake Total 480 ml Output Total 300 ml Balance 180 ml Result Diagram: 10/01/16 0600 10/01/16 0600 Administered Medications Medications (Trade) Dose Ordered Sig/Brock Route PRN Reason Start Time Stop Time Status Last Admin Dose Admin Azathioprine (Imuran) 25 mg BID PO 09/20/16 09:00 10/01/16 20:09 Docusate Sodium (Colace) 100 mg BID PO 09/20/16 09:00 10/01/16 20:10 IV Flush (NS Flush) 2 ml BID FLUSH 09/20/16 09:00 10/01/16 20:10 Magnesium Hydroxide 30 ml 30 ml Q12H PRN PO CONSTIPATION 09/20/16 02:45 09/26/16 21:48 Sodium Chloride (NS 1000 ml Inj) 1,000 ml @ 0 mls/hr Q48H IV 09/21/16 15:00 09/29/19 23:00 09/29/16 12:28 Clonidine (Catapres-Tts 0.1mg Patch.7d) 1 patch Q7D TD 09/23/16 09:00 09/30/16 09:30 Miscellaneous Information 1 Q7D T-DERMAL 09/30/16 09:00 09/30/16 09:00 Psyllium Hydrophilic Mucilloid (Metamucil Smooth Texture Sf/ Gf Pkt) 1 pkt DAILY PO 09/26/16 13:00 10/01/16 08:30 Gentamicin Sulfate (Gentamicin Opht 0.3% Soln) 1 drop Q4HR RIGHT EYE 09/26/16 16:00 10/01/16 23:31 Alprazolam (Xanax) 0.25 mg HS PRN PO SLEEP 09/27/16 01:45 10/01/16 23:31 Famotidine (Pepcid) 20 mg Q12HR PO 09/28/16 10:00 10/01/16 20:10 Cholecalciferol (Vitamin D3) 5,000 units DAILY PO 09/28/16 11:00 10/01/16 08:31 Calcium Carbonate (Tums Chew) 500 mg DAILY CHEW 09/28/16 09:00 10/01/16 08:30 Chlorhexidine Gluconate (Chlorhexidine 2% Cloth) 3 pack DAILY@04 TOP 09/29/16 04:00 10/03/16 04:01 10/02/16 04:00 Pyridostigmine [place] (Mestinon) 120 mg TID@07,12,16 PO 09/29/16 09:30 10/02/16 06:27 Miscellaneous (Pill Splitter) 1 ea UNSCH PRN OTHER SEE LABEL COMMENTS 09/29/16 09:45 09/29/16 21:12 Albumin Human 150 gm 150 gm Q48H OTHER 10/01/16 01:00 10/03/16 01:01 10/01/16 02:01 Sodium Chloride (NS 1000 ml Inj) 1,000 ml @ 0 mls/hr Q0M IV 10/01/16 01:00 10/03/16 06:00 10/01/16 02:02 Anticoagulant Citrate Dextose Brandy A (Acd Formula Inj) 1,000 ml Q48H OTHER 10/01/16 01:00 10/03/16 01:01 10/01/16 02:05 Heparin Sodium (Porcine) 5000 units 5,000 units UNSCH PRN IVF SEE LABEL COMMENTS 10/01/16 01:00 10/03/16 06:00 10/01/16 03:44 Calcium Gluconate/ Sodium Chloride (Calcium Gluconate Inj/NS 250 ml Inj) 240 ml @ 120 mls/hr Q48H IV 10/01/16 01:00 10/03/16 02:59 10/01/16 02:00 Famotidine (Pepcid Inj) 20 mg Q48H IV 10/01/16 01:00 10/03/16 01:01 10/01/16 02:23 Prednisone (Deltasone) 60 mg DAILY PO 10/01/16 09:00 10/01/16 09:00 Objective Remarks GENERAL: Elderly male, sitting up in bed resting in nad. SKIN: Warm and dry. vascath in place, right neck. HEAD: Normocephalic. EYES: No injection or drainage. NECK: Supple, trachea midline. CARDIOVASCULAR: Regular rate and rhythm RESPIRATORY: Breath sounds equal bilaterally. No accessory muscle use. GASTROINTESTINAL: Abdomen soft, non-tender, nondistended. EXTREMITIES: No cyanosis NEUROLOGICAL: AO x 3. moving all extremities. normal speech. Assessment/Plan Problem List: (1) Myasthenia gravis Status: Chronic Plan: 10/02/16: plasma exchange #7 later today--have placed a hold order until labs are back. 10/01/16: given plasma exchange last night with 2 units FFP and the rest 5% albumin. fibrinogen 77 this AM, given 1 unit cryo 09/30/16: Orders written for pt to get 2 more plasma exchange treatments. He will get one tomorr (10/01) and Tuesday (10/03). Will change to plasma from albumin on treatments. Will reconsult PT to help with conditioning. Fibrinogen level at 66 today. No bleeding. Will give 1 unit cryoprecipitate. 09/29/16: Plasma exchange #5 today. Labs stable. Plan for two more treatments as an outpatient. Recheck labs in am. 09/28/16: off day. fibrinogen 67. monitor for bleeding. Give 1 unit cryo. Neurology note reviewed, plan for a total of 7 PEX now. consider outpatient after steroids started. 09/27/16: PEX #4 today. Platelets 84k today. Up from 76k yesterday. Received 1 unit cryo over the weekend. Fibrinogen 130 today. He is overall improving. 09/25/15: PEX #3. [id number]. will give 1 unit cryo today after PEX 09/24/15: Second plasma exchange yesterday. He states his swallowing and speech seem improved today. Plan for exchange #3 tomorrow. Continue supportive care, PT. 09/23/16 Had second plasma phereses today . He is feeling somewhat better. continue pheresis QOD 09/22/16: Had 1st plasma exchange yesterday. Still c/o trouble swallowing. Speech therapy following. He should get exchange #2 tomorrow. 09/21/16: proceed with day 1 of PEX. monitor CBC, coags, calcium --heparin prophylaxis placed on hold as plasma exchange can produce a predictable decrease in blood coagulation factors that may predispose to bleeding. --PEX QOD x 7 total doses. Assessment 85y/o male with myasthenia gravis admitted with exacerbation. Hematology consulted to coordinate plasma exchange Attending Statement c/o double vision again. No More problem with speech and swallowing. 6th pheresis tomorrow. The exam, history, and the medical decision-making described in the above note were completed with the assistance of the mid-level provider. I reviewed and agree with the findings presented. I attest that I had a [id number] encounter with the patient on the same day, and personally performed and documented my assessment and findings in the medical record. Elly Grimaldo Oct 02, 2016 09:21 Gabriel Garcia MD Oct 02, 2016 19:29
[2016-10-02 09:47] LABS: AUTOMATED NEUTROPHIL # 3.4 TH/MM3 (1.8-7.7); BASOPHIL % 0.7 % (0.0-2.0); EOSINOPHIL # 0.1 TH/MM3 (0-0.4); EOSINOPHIL % 2.1 % (0.0-4.0); HEMATOCRIT 34.6 % (39.0-51.0); HEMO FLAGS DIFF FINAL; LYMPH % 11.2 % (9.0-44.0); LYMPHOCYTE # 0.5 TH/MM3 (1.0-4.8); MEAN CELL VOLUME 86.7 FL (80.0-100.0); MEAN CORPUSCULAR HGB CONC 32.3 % (32.0-36.0); MONO % 10.3 % (0.0-8.0); NEUT % 75.7 % (16.0-70.0); PLATELET COUNT 116 TH/MM3 (150-450); RED BLOOD COUNT 3.99 MIL/MM3 (4.50-5.90); WHITE BLOOD COUNT 4.5 TH/MM3 (4.0-11.0)
[2016-10-02] MEDS: CALCIUM CARBONATE 500 MG CHEWABLE TAB CHEW SCH (09:58)
[2016-10-02] MEDS: predniSONE 20 MG TAB PO SCH (09:58)
[2016-10-02] MEDS: CHOLECALCIFEROL (VIT D3) 5000 UNIT CAP PO SCH (09:58)
[2016-10-02] MEDS: DOCUSATE SODIUM 100 MG CAP PO SCH ×2 (09:58→21:25)
[2016-10-02] MEDS: FAMOTIDINE 20 MG TAB PO SCH ×2 (09:58→21:25)
[2016-10-02] MEDS: SODIUM CHLORIDE 0.9% FLUSH 5 ML FLUSH FLUSH SCH ×2 (09:59→21:26)
[2016-10-02] MEDS: azaTHIOprine 50 MG TAB PO SCH ×2 (09:59→21:26)
[2016-10-02 10:04] LABS: BICARBONATE 28.6 MEQ/L (21.0-32.0); POTASSIUM 3.6 MEQ/L (3.5-5.1)
--- NOTE | 2016-10-02 11:09 | HHI.FPPN ---
Subjective Remarks Patient seen and examined this morning. Denies any complaints/concerns this morning. Denies any lightheadedness/dizziness, double vision, weakness, dysphagia. Is eager to go home tomorrow. Denies any chest pain, SOB, abdominal pain, leg pain. (Corey Mondragon MD R1) Objective Vitals Vital Signs Date Time Temp Pulse Resp B/P Pulse Ox O2 Delivery O2 Flow Rate FiO2 10/02/16 08:00 97.5 54 18 136/62 97 10/02/16 04:00 97.2 60 16 115/59 97 10/02/16 00:00 97.1 61 16 131/64 100 10/01/16 20:00 63 10/01/16 20:00 63 10/01/16 20:00 Room Air 10/01/16 20:00 97.0 62 16 138/60 100 10/01/16 16:00 97.2 62 16 135/60 96 10/01/16 15:26 97 Room Air 10/01/16 13:35 61 10/01/16 12:00 96.6 73 16 124/56 97 I/O 10/01/16 10/01/16 10/01/16 10/02/16 10/02/16 10/02/16 07:00 15:00 23:00 07:00 15:00 23:00 Intake Total 480 ml 720 ml 260 ml 480 ml Output Total 200 ml 300 ml Balance 280 ml 720 ml 260 ml 180 ml Intake Oral 480 ml 720 ml 480 ml IV Total 25 ml Cryoprecipitate 235 ml Output Urine Total 200 ml 300 ml # Voids 3 3 (Corey Mondragon MD R1) Result Diagram: 10/02/16 0910/02/16 0900 Objective Remarks CONST: male sitting up comfortably in chair, in NAD. Normal speech HEENT: Poor prison with multiple missing teeth. Conjunctiva clear. PERRL. EOMI. MMM RESP: Lungs CTAB. No wheezes. CV: RRR. No murmur appreciated. GI: Soft non-tender, non-distended. No masses. +BS. R ventral hernia. MSK: Muscle tone symmetrical, appropriate. NEURO: Speech regular. Strength 5/5 upper and lower extremities. Extremities neurovascularly intact. PSYCH: Affect appropriate. Good insight. Procedures 09/20- RIJ catheter placed 09/21, 09/23, 09/25- Plasmapheresis (Corey Mondragon MD R1) Date of Insertion: Sep 20, 2016 Line: Central Venous Catheter Side: Right Location: Internal, Jugular (Corey Mondragon MD R1) A/P Assessment and Plan 85y male with myasthenia gravis, metastatic colon cancer, and metastatic prostate cancer, presented with dysarthria and dysphagia, admitted 09/19/16 for myasthenia gravis exacerbation. Discharge Planning Pending Neurology recommendations. PEX today and Tuesday Discharge on Tuesday PT: [employer] OT: No OT needed ST: Will continue to evaluate if patient will require continued speech therapy on discharge WDW: Dr. Doherty (Corey Mondragon MD R1) Attending Attestation Case reviewed and discussed with the resident team. Agree with plan of care as discussed with me and documented in the resident note. (Chris Doherty MD) Problem List: (1) Myasthenia gravis with acute exacerbation Status: Acute Plan: Presented with dysarthria and dysphagia. Home medicines pyridostigmine and azathioprine. Consulted Neurology, Heme Onc (follows outpatient with Dr. Garcia). RIJ placed 09/20/16 by IR. Plan -episode of slurred speech/double vision couple days ago, being worked up by neurology; -Neurosurgery consulted, recommend no surgical intervention. -dysphagia improved -Diet: Mechanical soft -Speech therapy will continue to evaluate, appreciate recs -Continue Regenol 4mg IV TID Azathioprine 25mg PO BID -Prednisone 60mg daily Neurology and Hematology consulted -Due for PEX on Tuesday -PT/ST/Case management consulted (2) HTN (hypertension) Status: Chronic Plan: History of anxiety - Clonidine Patch 0.1mg Q7days (3) Blepharitis Status: Acute Plan: Erythema improved. Conjunctiva not-injected. Ptosis R eye. Plan -Pt did not tolerate ointment- made it difficult to see, dosed QID -s/p Erythromycin ointment 1g QID x 5-7 days (09/25-09/26 ) -Continue Gentamicin 0.3% solution 1 drop q4h while awake, R eye x5 days (09/26- ) (4) Constipation Status: Chronic Plan: Hx constipation, multiple SBO, s/p multiple surgeries, including partial colectomy for metastatic colon cancer. Home Benefiber, not in formulary. Plan Continue Colace 100mg BID Milk of magnesium 30 mL BID PRN constipation -Start Metamucil powder 1 packet daily, mixed into 8oz water or applesauce, pudding, or other thickened liquid/puree (5) Fibrinogen decreased Status: Acute Plan: Admitted with fibrinogen 223, decreased to low of 66. Likely secondary to plasmapheresis S/p 1 unit cryoprecipitate 09/25 & 1 unit 09/28 per Hematology Oncology -Daily fibrinogen -Given 1 unit cryoprecipitate 09/30 (6) Thrombocytopenia Status: Chronic Plan: Platelets 131k on admission. Moderate thrombocytopenia. -Heparin prophylaxis placed on hold as plasma exchange can produce a predictable decrease in blood coagulation factors that may predispose to bleeding -Daily CBC, continue to monitor -Consider platelet transfusion if spontaneous bleeding, platelets <30k, or per Heme Onc recommendations to tolerate plasmapheresis (7) Hypokalemia Status: Resolved Plan: K stable -Continue to monitor and replete, as needed (8) Hx of malignant neoplasm of prostate Status: Chronic Plan: -Leuprolide 45mg INJ every other week (9) Anxiety Status: Chronic Plan: Home 0.25 Xanax q4h, uses sparingly. Continue to monitor (10) Vitamin B 12 deficiency Status: Chronic Plan: -Received monthly Vit B12 shot 09/22/16 (11) Nutrition, metabolism, and development symptoms Status: Chronic Plan: Fluids: Per PO Electrolytes: wnl. continue to monitor Diet: mechanical soft, heart healthy diet DVT prophylaxis: SCDs, heparin prophylaxis placed on hold as plasma exchange can produce a predictable decrease in blood coagulation factors that may predispose to bleeding GI prophylaxis: not indicated OOB with assistance (Corey Mondragon MD R1) Problem Qualifiers (1) HTN (hypertension): Qualified Code: I10 - Essential hypertension (2) Blepharitis: Qualified Code: H01.001 - Blepharitis of both upper and lower eyelid of right eye, unspecified type (3) Constipation: Qualified Code: K59.01 - Slow transit constipation Corey Mondragon MD R1 Oct 02, 2016 11:09 Chris Doherty MD Oct 02, 2016 14:37
[2016-10-02 11:33] LABS: APTT (PATIENT) 30.6 SEC (24.3-30.1); INTERNATIONAL NORMALIZED RATIO 1.1 RATIO; PROTHROMBIN TIME - PATIENT 11.8 SEC (9.8-11.6)
--- NOTE | 2016-10-02 22:08 | HHI.PR ---
Review/Management Diagnosis Myasthenia gravis exacerbation good response to PLEX seven sessions Plan PLEX 7th and final session today Prednisone 60mg daily Immuran 25mg bid Mestinon 120mg tid If Fibrinogen level is wnl, can follow up as an outpatient Stable from the neurologic stand point Diagnosis/Plan: Subjective Subjective Comments No acute events reported No headache No new symptoms or complains Fibrinogen level is wnl Today for 7th and last dose of PLEX MRI is stable Active Medications Current Medications Medications (Trade) Dose Ordered Sig/Brock Route Start Time Stop Time Status Last Admin (Imuran) 25 mg BID PO 09/20/16 09:00 10/02/16 21:26 (Colace) 100 mg BID PO 09/20/16 09:00 10/02/16 21:25 (NS Flush) 2 ml UNSCH PRN FLUSH 09/20/16 02:45 (NS Flush) 2 ml BID FLUSH 09/20/16 09:00 10/02/16 21:26 (Milk Of Magnesia Liq) 30 ml Q12H PRN PO 09/20/16 02:45 09/26/16 21:48 (Narcan Inj) 0.4 mg UNSCH PRN IV 09/20/16 02:45 (NS Flush) UNSCH PRN IVF 09/20/16 11:45 Heparin Sodium (Porcine) UNSCH PRN IVF 09/20/16 11:45 (NS 1000 ml Inj) 1,000 ml @ 0 mls/hr Q48H IV 09/21/16 15:00 09/29/19 23:00 09/29/16 12:28 (NS Flush) 10 ml UNSCH PRN IV FLUSH 09/21/16 15:00 09/29/19 23:00 (Catapres-Tts 0.1mg Patch.7d) 1 patch Q7D TD 09/23/16 09:00 09/30/16 09:30 Miscellaneous Information 1 Q7D T-DERMAL 09/30/16 09:00 09/30/16 09:00 (Metamucil Smooth Texture Sf/ Gf Pkt) 1 pkt DAILY PO 09/26/16 13:00 10/01/16 08:30 (Gentamicin Opht 0.3% Soln) 1 drop Q4HR RIGHT EYE 09/26/16 16:00 10/02/16 21:26 (Xanax) 0.25 mg HS PRN PO 09/27/16 01:45 10/01/16 23:31 (Pepcid) 20 mg Q12HR PO 09/28/16 10:00 10/02/16 21:25 (Vitamin D3) 5,000 units DAILY PO 09/28/16 11:00 10/02/16 09:58 (Tums Chew) 500 mg DAILY CHEW 09/28/16 09:00 10/02/16 09:58 Miscellaneous Information Patient in critical care unit? Ass... Q361D XX 09/29/16 01:15 (Chlorhexidine 2% Cloth) 3 pack DAILY@04 TOP 09/29/16 04:00 10/03/16 04:01 10/02/16 04:00 (Chlorhexidine 2% Cloth) 3 pack UNSCH PRN TOP 09/29/16 01:15 10/04/16 01:00 (Mestinon) 120 mg TID@07,12,16 PO 09/29/16 09:30 10/02/16 15:22 (Pill Splitter) 1 ea UNSCH PRN OTHER 09/29/16 09:45 09/29/16 21:12 Albumin Human 150 gm 150 gm Q48H OTHER 10/01/16 01:00 10/03/16 01:01 10/01/16 02:01 (NS 1000 ml Inj) 1,000 ml @ 0 mls/hr Q0M IV 10/01/16 01:00 10/03/16 06:00 10/01/16 02:02 (Benadryl Inj) 25 mg UNSCH PRN IV PUSH 10/01/16 01:00 10/03/16 06:00 (Acd Formula Inj) 1,000 ml Q48H OTHER 10/01/16 01:00 10/03/16 01:01 10/01/16 02:05 (NS Flush) 10 ml UNSCH PRN IV FLUSH 10/01/16 01:00 10/03/16 06:00 Heparin Sodium (Porcine) 5000 units 5,000 units UNSCH PRN IVF 10/01/16 01:00 10/03/16 06:00 10/01/16 03:44 (Calcium Gluconate Inj/NS 250 ml Inj) 240 ml @ 120 mls/hr Q48H IV 10/01/16 01:00 10/03/16 02:59 10/01/16 02:00 (Pepcid Inj) 20 mg Q48H IV 10/01/16 01:00 10/03/16 01:01 10/01/16 02:23 (Deltasone) 60 mg DAILY PO 10/01/16 09:00 10/02/16 09:58 Allergies Allergies Coded Allergies Sulfa (Verified Allergy, Severe, Flushing, 09/20/16) Ativan (Verified Allergy, Intermediate, Psychosis, 09/20/16) Compazine (Verified Allergy, Unknown, JITTERY, 09/20/16) Exam I&O / VS 10/01/16 10/01/16 10/02/16 15:00 23:00 07:00 Intake Total 720 ml 260 ml 480 ml Output Total 300 ml Balance 720 ml 260 ml 180 ml Intake Oral 720 ml 480 ml IV Total 25 ml Cryoprecipitate 235 ml Output Urine Total 300 ml # Voids 3 3 Vital Signs Date Time Temp Pulse Resp B/P Pulse Ox O2 Delivery O2 Flow Rate FiO2 10/02/16 20:00 97.5 61 17 132/63 98 10/02/16 16:00 96.3 57 18 102/72 100 10/02/16 14:08 66 10/02/16 12:31 60 10/02/16 12:30 Room Air 10/02/16 12:00 97.4 62 18 118/56 100 10/02/16 08:00 97.5 54 18 136/62 97 10/02/16 04:00 97.2 60 16 115/59 97 10/02/16 00:00 97.1 61 16 131/64 100 General: Alert and Oriented, No acute distress Eye: PERRL, EOMI, Normal conjuctiva, Vision unchanged Respiratory: Lungs CTA, Non-labored respirations Cardiology: Normal rate, Intact pulses Musculoskeletal: ROM, Tenderness, Swelling Neurologic: Alert, Oriented, Normal sensory, Normal DTR's, Other (b//l mild ptosis, nasal tune to the voice, normal elevation of the uvula, subtle b/l facial palsy. 5-/5 b/l shoulder abd, &hip flex, the rest 5/5, no abnormal movements) Psychiatric: Cooperative, Appropriate mood & affect, Normal judgement Objective Micro and Labs Laboratory Tests Test 10/02/16 10/02/16 09:00 10:54 White Blood Count 4.5 Red Blood Count 3.99 Hemoglobin 11.2 Hematocrit 34.6 Mean Corpuscular Volume 86.7 Mean Corpuscular Hemoglobin 28.0 Mean Corpuscular Hemoglobin 32.3 Concent Red Cell Distribution Width 18.0 Platelet Count 116 Mean Platelet Volume 9.1 Neutrophils (%) (Auto) 75.7 Lymphocytes (%) (Auto) 11.2 Monocytes (%) (Auto) 10.3 Eosinophils (%) (Auto) 2.1 Basophils (%) (Auto) 0.7 Neutrophils # (Auto) 3.4 Lymphocytes # (Auto) 0.5 Monocytes # (Auto) 0.5 Eosinophils # (Auto) 0.1 Basophils # (Auto) 0.0 CBC Comment DIFF FINAL Differential Comment Sodium Level 139 Potassium Level 3.6 Chloride Level 103 Carbon Dioxide Level 28.6 Anion Gap 7 Blood Urea Nitrogen 21 Creatinine 0.90 Estimat Glomerular Filtration 80 Rate Random Glucose 110 Calcium Level 9.3 Prothrombin Time 11.8 Prothromb Time International 1.1 Ratio Activated Partial 30.6 Thromboplast Time Fibrinogen 155 Reddy Dexter MD Oct 02, 2016 22:08
[2016-10-03] VITALS (7 sets, daily range): BP systolic 116–146; BP diastolic 63–65; PULSE 62–64; RESP 16–18; TEMP 96.8–97.6; O2SAT 98–100
[2016-10-03] MEDS: ALBUMIN HUMAN 5% 25 GM/500 ML BOTTLE OTHER SCH (01:00)
[2016-10-03] MEDS: FAMOTIDINE 20 MG/2 ML VIAL IV SCH (01:00)
[2016-10-03] MEDS: CALCIUM GLUCONATE INJ 4 GM in SODIUM CHLOR 0.9% 250 ML INJ 200 ML IV SCH (01:00)
[2016-10-03] MEDS: ANTICOAGULANT CITRATE DEXTROSE SOLN-A 1L OTHER SCH (01:00)
[2016-10-03] MEDS: CHLORHEXIDINE GLUCONATE 2 % 1 PACK (2 CLOTHS)(taper/protocol) TOP SCH (04:00)
[2016-10-03] MEDS: ALPRAZolam 0.25 MG TAB PO PRN ×2 (04:34→20:59)
[2016-10-03] MEDS: GENTAMICIN SULFATE 0.3% OPHT SOLN 5 ML BTL RIGHT EYE SCH ×6 (04:34→21:00)
[2016-10-03] MEDS: PYRIDOSTIGMINE BROMIDE 60 MG TAB PO SCH ×3 (04:37→16:33)
[2016-10-03 08:12] LABS: BASOPHIL % 0.3 % (0.0-2.0); EOSINOPHIL % 0.4 % (0.0-4.0); HEMATOCRIT 28.6 % (39.0-51.0); LYMPH % 9.1 % (9.0-44.0); LYMPHOCYTE # 0.3 TH/MM3 (1.0-4.8); MEAN CELL VOLUME 86.3 FL (80.0-100.0); MEAN CORPUSCULAR HEMOGLOBIN 28.4 PG (27.0-34.0); MONO % 11.4 % (0.0-8.0); NEUT % 78.8 % (16.0-70.0); PLATELET COUNT 95 TH/MM3 (150-450); RED BLOOD COUNT 3.32 MIL/MM3 (4.50-5.90); WHITE BLOOD COUNT 3.8 TH/MM3 (4.0-11.0)
[2016-10-03 08:21] LABS: APTT (PATIENT) 26.9 SEC (24.3-30.1); INTERNATIONAL NORMALIZED RATIO 1.1 RATIO; PROTHROMBIN TIME - PATIENT 11.8 SEC (9.8-11.6)
[2016-10-03 08:33] LABS: BICARBONATE 28.9 MEQ/L (21.0-32.0); POTASSIUM 3.7 MEQ/L (3.5-5.1)
[2016-10-03] MEDS: predniSONE 20 MG TAB PO SCH (08:43)
[2016-10-03] MEDS: CALCIUM CARBONATE 500 MG CHEWABLE TAB CHEW SCH (08:43)
[2016-10-03 08:44] LABS: HEMO FLAGS AUTO DIFF
[2016-10-03] MEDS: FAMOTIDINE 20 MG TAB PO SCH ×2 (08:44→20:59)
[2016-10-03] MEDS: CHOLECALCIFEROL (VIT D3) 5000 UNIT CAP PO SCH (08:44)
[2016-10-03] MEDS: azaTHIOprine 50 MG TAB PO SCH ×2 (08:44→21:00)
[2016-10-03] MEDS: DOCUSATE SODIUM 100 MG CAP PO SCH ×2 (08:46→21:00)
[2016-10-03] MEDS: SODIUM CHLORIDE 0.9% FLUSH 5 ML FLUSH FLUSH SCH ×2 (08:49→21:00)
[2016-10-03] MEDS: PSYLLIUM FIBER SF/GF 6 GM POWD PKT PO SCH (09:00)
[2016-10-03] MEDS ORDERED: HEPARIN SODIUM - 10,000 UNITS/ML 1ML VIAL IVF PRN (10:00)
[2016-10-03] MEDS ORDERED: SODIUM CHLOR 0.9% 1000 ML IV ONE (10:00)
[2016-10-03] MEDS ORDERED: ANTICOAGULANT CITRATE DEXTROSE SOLN-A 1L OTHER ONE (10:00)
[2016-10-03] MEDS ORDERED: CALCIUM GLUCONATE INJ 4 GM in SODIUM CHLOR 0.9% 250 ML INJ 200 ML IV ONE (10:00)
[2016-10-03] MEDS ORDERED: SODIUM CHLORIDE 0.9% 10 ML FLUSH IV FLUSH PRN (10:00)
[2016-10-03] MEDS ORDERED: diphenhydrAMINE HCL 50 MG/ML VIAL IV PUSH PRN (10:00)
--- NOTE | 2016-10-03 10:28 | HHI.FPPN ---
Subjective Remarks Patient is being examined this morning. Afebrile vital signs stable. Fibrinogen 155 low but not critical. Patient due for one more plasma exchange today, pending hematology clearing patient cleared for discharge from primary team standpoint. He is excited by that news. Says that he ate his breakfast since feeling great. Endorses: None Denies: Fever, chills, nausea, vomiting, shortness of breath, chest pain, headache, abdominal pain, calf pain (Ayden Alejo MD R2) Objective Vitals Vital Signs Date Time Temp Pulse Resp B/P Pulse Ox O2 Delivery O2 Flow Rate FiO2 10/03/16 04:00 97.4 62 18 134/65 98 10/03/16 00:00 97.2 63 18 146/64 98 10/02/16 21:25 64 10/02/16 20:08 64 10/02/16 20:00 98 Room Air 10/02/16 20:00 97.5 61 17 132/63 98 10/02/16 16:00 96.3 57 18 102/72 100 10/02/16 14:08 66 10/02/16 12:31 60 10/02/16 12:30 Room Air 10/02/16 12:00 97.4 62 18 118/56 100 I/O 10/02/16 10/02/16 10/02/16 10/03/16 10/03/16 10/03/16 07:00 15:00 23:00 07:00 15:00 23:00 Intake Total 480 ml 840 ml 480 ml 240 ml Output Total 300 ml Balance 180 ml 840 ml 480 ml 240 ml Intake Oral 480 ml 840 ml 480 ml 240 ml Output Urine Total 300 ml # Voids 3 3 3 1 # Bowel Movements 0 0 (Ayden Alejo MD R2) Result Diagram: 10/03/16 0750 10/03/16 0750 Imaging Last Impressions Head/Brain Mag Res Venography 09/30/16 0000 Signed Impressions: Service Date/Time: September 12:37 - CONCLUSION: No evidence of venous thrombosis. Marco Lewis MD Neck Magnetic Resonance Angiography 09/29/16 0837 Signed Impressions: Service Date/Time: Thursday, September 29, 2016 10:25 - CONCLUSION: No evidence of significant atherosclerotic vascular disease or hemodynamically significant stenosis. Marco Lewis MD Head Magnetic Resonance Angiography 09/29/16 0837 Signed Impressions: Service Date/Time: Thursday, September 29, 2016 10:25 - CONCLUSION: 1. Examination is within normal limits for age. 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 Vamshi Ellis MD Brain MRI 09/29/16 0837 Signed Impressions: Service Date/Time: Thursday, September 29, 2016 10:25 - CONCLUSION: 1. No acute findings. Stable chronic moderate ischemic changes in a periventricular white matter since 2013. No recent infarct. Vamshi Ellis MD ADDENDUM: Small extra-axial fluid collections characteristic of small subdural hematomas of varying age are identified. There are small crescent-shaped collection along the medial cortical margin of the left occipital lobe and along the posterior margin of the left cerebellum which appear acute. The collections are hyperintense on flair imaging and hypointense on susceptibility weighted imaging. There is no significant mass effect, underlying cortical edema or associated intra-axial hemorrhage. Small crescent-shaped subdural collections are seen along the left cerebral convexity and right posterior parietal lobe. These collections are only minimally hyperintense compared to adjacent brain and do not exhibit significant susceptibility. These are characteristic of chronic subdural collections. Marco Lewis MD Chest X-Ray 09/20/16 0239 Signed Impressions: Service Date/Time: Tuesday, September 20, 2016 03:04 - CONCLUSION: No acute disease. No significant change has occurred. Reece Peters MD Catheter Placement X-Ray 09/20/16 0000 Signed Impressions: Service Date/Time: Tuesday, September 20, 2016 10:48 - CONCLUSION: Uncomplicated line placement as above. Catheter functions well and is ready for use. Agustin Guajardo Jr., MD Objective Remarks CONST: male sitting up comfortably in chair, in NAD. Normal speech HEENT: Poor mcfp with multiple missing teeth. Conjunctiva clear. PERRL. EOMI. MMM RESP: Lungs CTAB. No wheezes. CV: RRR. No murmur appreciated. GI: Soft non-tender, non-distended. No masses. +BS. R ventral hernia. MSK: Muscle tone symmetrical, appropriate. NEURO: Speech regular. Strength 5/5 upper and lower extremities. Extremities neurovascularly intact. PSYCH: Affect appropriate. Good insight. Procedures 09/20- RIJ catheter placed 09/21, 09/23, 09/25- Plasmapheresis Medications and IVs Current Medications Medications (Trade) Dose Ordered Sig/Brock Route Start Time Stop Time Status Last Admin (Imuran) 25 mg BID PO 09/20/16 09:00 10/03/16 08:44 (Colace) 100 mg BID PO 09/20/16 09:00 10/03/16 08:46 (NS Flush) 2 ml UNSCH PRN FLUSH 09/20/16 02:45 10/03/16 08:49 (NS Flush) 2 ml BID FLUSH 09/20/16 09:00 10/03/16 08:49 (Milk Of Magnrocio Liq) 30 ml Q12H PRN PO 09/20/16 02:45 09/26/16 21:48 (Narcan Inj) 0.4 mg UNSCH PRN IV 09/20/16 02:45 (NS Flush) UNSCH PRN IVF 09/20/16 11:45 Heparin Sodium (Porcine) UNSCH PRN IVF 09/20/16 11:45 (NS 1000 ml Inj) 1,000 ml @ 0 mls/hr Q48H IV 09/21/16 15:00 09/29/19 23:00 09/29/16 12:28 (NS Flush) 10 ml UNSCH PRN IV FLUSH 09/21/16 15:00 09/29/19 23:00 (Catapres-Tts 0.1mg Patch.7d) 1 patch Q7D TD 09/23/16 09:00 09/30/16 09:30 Miscellaneous Information 1 Q7D T-DERMAL 09/30/16 09:00 09/30/16 09:00 (Metamucil Smooth Texture Sf/ Gf Pkt) 1 pkt DAILY PO 09/26/16 13:00 10/01/16 08:30 (Gentamicin Opht 0.3% Soln) 1 drop Q4HR RIGHT EYE 09/26/16 16:00 10/03/16 08:46 (Xanax) 0.25 mg HS PRN PO 09/27/16 01:45 10/03/16 04:34 (Pepcid) 20 mg Q12HR PO 09/28/16 10:00 10/03/16 08:44 (Vitamin D3) 5,000 units DAILY PO 09/28/16 11:00 10/03/16 08:44 (Tums Chew) 500 mg DAILY CHEW 09/28/16 09:00 10/03/16 08:43 Miscellaneous Information Patient in critical care unit? Ass... Q361D XX 09/29/16 01:15 (Chlorhexidine 2% Cloth) 3 pack UNSCH PRN TOP 09/29/16 01:15 10/04/16 01:00 (Mestinon) 120 mg TID@,12,16 PO 09/29/16 09:30 10/03/16 04:37 (Pill Splitter) 1 ea UNSCH PRN OTHER 09/29/16 09:45 09/29/16 21:12 (Deltasone) 60 mg DAILY PO 10/01/16 09:00 10/03/16 08:43 Diphenhydramine HCl 25 mg 25 mg UNSCH PRN IV PUSH 10/03/16 10:00 10/04/16 10:01 (Calcium Gluconate Inj/NS 250 ml Inj) 240 ml @ 90 mls/hr ONCE ONCE IV 10/03/16 10:00 10/03/16 12:39 (NS Flush) 10 ml UNSCH PRN IV FLUSH 10/03/16 10:00 (Heparin Inj) 5,000 units UNSCH PRN IVF 10/03/16 10:00 (Ayden Alejo MD R2) Date of Insertion: Sep 20, 2016 Line: Central Venous Catheter Side: Right Location: Internal, Jugular (Ayden Alejo MD R2) A/P Assessment and Plan 85y male with myasthenia gravis, metastatic colon cancer, and metastatic prostate cancer, presented with dysarthria and dysphagia, admitted 09/19/16 for myasthenia gravis exacerbation. Discharge Planning Signed off by neurology. Receiving last PEX today 10/03/15 Patient cleared for discharge from primary team standpoint Awaiting cleared for discharge by hematology WDW: Dr. Doherty (Ayden Alejo MD R2) Attending Attestation Case reviewed and discussed with the resident team. Agree with plan of care as discussed with me and documented in the resident note. (Chris Doherty MD) Problem List: (1) Myasthenia gravis with acute exacerbation Status: Acute Plan: Presented with dysarthria and dysphagia. Home medicines pyridostigmine and azathioprine. Consulted Neurology, Heme Onc (follows outpatient with Dr. Garcia). RIJ placed 09/20/16 by IR. Plan -Cleared by neurology for discharge -Continue Regenol 4mg IV TID Azathioprine 25mg PO BID -Prednisone 60mg daily Neurology and Hematology consulted -Due for PEX on Tuesday -Receiving seventh and final plasma exchange for this hospitalization (2) HTN (hypertension) Status: Chronic Plan: History of anxiety - Clonidine Patch 0.1mg Q7days (3) Blepharitis Status: Resolved Plan: Erythema improved. Conjunctiva not-injected. Ptosis R eye. Plan -Pt did not tolerate ointment- made it difficult to see, dosed QID -s/p Erythromycin ointment 1g QID x 5-7 days (09/25-09/26 ) -Continue Gentamicin 0.3% solution 1 drop q4h while awake, R eye x5 days (09/26- ) (4) Constipation Status: Chronic Plan: Hx constipation, multiple SBO, s/p multiple surgeries, including partial colectomy for metastatic colon cancer. Home Benefiber, not in formulary. Plan Continue Colace 100mg BID Milk of magnesium 30 mL BID PRN constipation -Start Metamucil powder 1 packet daily, mixed into 8oz water or applesauce, pudding, or other thickened liquid/puree (5) Fibrinogen decreased Status: Acute Plan: Admitted with fibrinogen 223, decreased to low of 66. Likely secondary to plasmapheresis S/p 1 unit cryoprecipitate 09/25 & 1 unit 09/28 per Hematology Oncology -Daily fibrinogen:157 today -Given 1 unit cryoprecipitate 2/ (6) Thrombocytopenia Status: Chronic Plan: Platelets 131k on admission. Moderate thrombocytopenia. -Heparin prophylaxis placed on hold as plasma exchange can produce a predictable decrease in blood coagulation factors that may predispose to bleeding -Daily CBC, continue to monitor -Consider platelet transfusion if spontaneous bleeding, platelets <30k, or per Heme Onc recommendations to tolerate plasmapheresis (7) Hypokalemia Status: Resolved Plan: K stable -Continue to monitor and replete, as needed (8) Hx of malignant neoplasm of prostate Status: Chronic Plan: -Leuprolide 45mg INJ every other week (9) Anxiety Status: Chronic Plan: Home 0.25 Xanax q4h, uses sparingly. Continue to monitor (10) Vitamin B 12 deficiency Status: Chronic Plan: -Received monthly Vit B12 shot 09/22/16 (11) Nutrition, metabolism, and development symptoms Status: Chronic Plan: Fluids: Per PO Electrolytes: wnl. continue to monitor Diet: mechanical soft, heart healthy diet DVT prophylaxis: SCDs, heparin prophylaxis placed on hold as plasma exchange can produce a predictable decrease in blood coagulation factors that may predispose to bleeding GI prophylaxis: not indicated OOB with assistance (Ayden Alejo MD R2) Problem Qualifiers (1) HTN (hypertension): Qualified Code: I10 - Essential hypertension (2) Blepharitis: Qualified Code: H01.001 - Blepharitis of both upper and lower eyelid of right eye, unspecified type (3) Constipation: Qualified Code: K59.01 - Slow transit constipation Ayden Alejo MD R2 Oct 03, 2016 10:27 Chris Doherty MD Oct 04, 2016 11:18
--- NOTE | 2016-10-03 10:50 | PD.ONC.PN ---
Subjective Subjective Remarks Afebrile overnight. patient complaining of double vision which comes and goes. he states this has been an ongoing problem due to his lazy eye which has been improving. Not present during my exam. No other neurologic complaint. He is irritated that he cannot go home today. Objective Data Date Time Temp Pulse Resp B/P Pulse Ox O2 Delivery O2 Flow Rate FiO2 10/03/16 04:00 97.4 62 18 134/65 98 10/03/16 00:00 97.2 63 18 146/64 98 10/02/16 21:25 64 10/02/16 20:08 64 10/02/16 20:00 98 Room Air 10/02/16 20:00 97.5 61 17 132/63 98 10/02/16 16:00 96.3 57 18 102/72 100 10/02/16 14:08 66 10/02/16 12:31 60 10/02/16 12:30 Room Air 10/02/16 12:00 97.4 62 18 118/56 100 Result Diagram: 10/03/16 0750 10/03/16 0750 Laboratory Results Laboratory Tests Test 10/02/16 10/03/16 10:54 07:50 Prothrombin Time 11.8 SEC 11.8 SEC Prothromb Time International 1.1 RATIO 1.1 RATIO Ratio Activated Partial 30.6 SEC 26.9 SEC Thromboplast Time Fibrinogen 155 mg/dL 139 mg/dL White Blood Count 3.8 TH/MM3 Red Blood Count 3.32 MIL/MM3 Hemoglobin 9.4 GM/DL Hematocrit 28.6 % Mean Corpuscular Volume 86.3 FL Mean Corpuscular Hemoglobin 28.4 PG Mean Corpuscular Hemoglobin 33.0 % Concent Red Cell Distribution Width 18.0 % Platelet Count 95 TH/MM3 Mean Platelet Volume 8.9 FL Neutrophils (%) (Auto) 78.8 % Lymphocytes (%) (Auto) 9.1 % Monocytes (%) (Auto) 11.4 % Eosinophils (%) (Auto) 0.4 % Basophils (%) (Auto) 0.3 % Neutrophils # (Auto) 3.0 TH/MM3 Lymphocytes # (Auto) 0.3 TH/MM3 Monocytes # (Auto) 0.4 TH/MM3 Eosinophils # (Auto) 0.0 TH/MM3 Basophils # (Auto) 0.0 TH/MM3 CBC Comment AUTO DIFF Sodium Level 138 MEQ/L Potassium Level 3.7 MEQ/L Chloride Level 103 MEQ/L Carbon Dioxide Level 28.9 MEQ/L Anion Gap 6 MEQ/L Blood Urea Nitrogen 28 MG/DL Creatinine 0.79 MG/DL Estimat Glomerular Filtration 93 ML/MIN Rate Random Glucose 112 MG/DL Calcium Level 8.9 MG/DL Administered Medications Medications (Trade) Dose Ordered Sig/Brock Route PRN Reason Start Time Stop Time Status Last Admin Dose Admin Azathioprine (Imuran) 25 mg BID PO 09/20/16 09:00 10/03/16 08:44 Docusate Sodium (Colace) 100 mg BID PO 09/20/16 09:00 10/03/16 08:46 IV Flush (NS Flush) 2 ml UNSCH PRN FLUSH FLUSH AFTER USING IV ACCESS 09/20/16 02:45 10/03/16 08:49 IV Flush (NS Flush) 2 ml BID FLUSH 09/20/16 09:00 10/03/16 08:49 Magnesium Hydroxide 30 ml 30 ml Q12H PRN PO CONSTIPATION 09/20/16 02:45 09/26/16 21:48 Sodium Chloride (NS 1000 ml Inj) 1,000 ml @ 0 mls/hr Q48H IV 09/21/16 15:00 09/29/19 23:00 09/29/16 12:28 Clonidine (Catapres-Tts 0.1mg Patch.7d) 1 patch Q7D TD 09/23/16 09:00 09/30/16 09:30 Miscellaneous Information 1 Q7D T-DERMAL 09/30/16 09:00 09/30/16 09:00 Psyllium Hydrophilic Mucilloid (Metamucil Smooth Texture Sf/ Gf Pkt) 1 pkt DAILY PO 09/26/16 13:00 10/01/16 08:30 Gentamicin Sulfate (Gentamicin Opht 0.3% Soln) 1 drop Q4HR RIGHT EYE 09/26/16 16:00 10/03/16 08:46 Alprazolam (Xanax) 0.25 mg HS PRN PO SLEEP 09/27/16 01:45 10/03/16 04:34 Famotidine (Pepcid) 20 mg Q12HR PO 09/28/16 10:00 10/03/16 08:44 Cholecalciferol (Vitamin D3) 5,000 units DAILY PO 09/28/16 11:00 10/03/16 08:44 Calcium Carbonate (Tums Chew) 500 mg DAILY CHEW 09/28/16 09:00 10/03/16 08:43 Pyridostigmine Shell (Mestinon) 120 mg TID@07,12,16 PO 09/29/16 09:30 10/03/16 04:37 Miscellaneous (Pill Splitter) 1 ea UNSCH PRN OTHER SEE LABEL COMMENTS 09/29/16 09:45 09/29/16 21:12 Prednisone (Deltasone) 60 mg DAILY PO 10/01/16 09:00 10/03/16 08:43 Objective Remarks GENERAL: Elderly male, sitting up in nad SKIN: Warm and dry. Vas-cath, right neck. HEAD: Normocephalic. EYES: No injection or drainage. NECK: Supple, trachea midline. CARDIOVASCULAR: Regular rate and rhythm RESPIRATORY: Breath sounds equal bilaterally. No accessory muscle use. GASTROINTESTINAL: Abdomen soft, non-tender, nondistended. EXTREMITIES: No cyanosis NEUROLOGICAL: awake and alert, normal speech. moving extremities. facial movements symmetric. EOMI pupils equal round and reactive to light. Assessment/Plan Problem List: (1) Myasthenia gravis Status: Chronic Plan: 10/03/16: PEX # 7 today. will check labs tomorrow and then patient can be d /c 10/02/16: no bleeding. PEX #7 tomorrow. 10/01/16: given plasma exchange last night with 2 units FFP and the rest 5% albumin. fibrinogen 77 this AM, given 1 unit cryo 09/30/16: Orders written for pt to get 2 more plasma exchange treatments. He will get one tomorrow (10/01) and Tuesday (10/03). Will change to plasma from albumin on treatments. Will reconsult PT to help with conditioning. Fibrinogen level at 66 today. No bleeding. Will give 1 unit cryoprecipitate. 09/29/16: Plasma exchange #5 today. Labs stable. Plan for two more treatments as an outpatient. Recheck labs in am. 09/28/16: off day. fibrinogen 67. monitor for bleeding. Give 1 unit cryo. Neurology note reviewed, plan for a total of 7 PEX now. consider outpatient after steroids started. 09/27/16: PEX #4 today. Platelets 84k today. Up from 76k yesterday. Received 1 unit cryo over the weekend. Fibrinogen 130 today. He is overall improving. 09/25/15: PEX #3. [id number]. will give 1 unit cryo today after PEX 09/24/15: Second plasma exchange yesterday. He states his swallowing and speech seem improved today. Plan for exchange #3 tomorrow. Continue supportive care, PT. 09/23/16 Had second plasma phereses today . He is feeling somewhat better. continue pheresis QOD 09/22/16: Had 1st plasma exchange yesterday. Still c/o trouble swallowing. Speech therapy following. He should get exchange #2 tomorrow. 09/21/16: proceed with day 1 of PEX. monitor CBC, coags, calcium --heparin prophylaxis placed on hold as plasma exchange can produce a predictable decrease in blood coagulation factors that may predispose to bleeding. --PEX QOD x 7 total doses. Assessment 85y/o male with myasthenia gravis admitted with exacerbation. Hematology consulted to coordinate plasma exchange Attending Statement still c/o blurring and double vision Getting 7th pheresis now. check coags tomorrow . If ok then d/c. The exam, history, and the medical decision-making described in the above note were completed with the assistance of the mid-level provider. I reviewed and agree with the findings presented. I attest that I had a [id number] encounter with the patient on the same day, and personally performed and documented my assessment and findings in the medical record. Elly Grimaldo Oct 03, 2016 10:50 Gabriel Garcia MD Oct 03, 2016 17:31
[2016-10-03 12:12] LABS: PLATELET ESTIMATE SMEAR LOW (NORMAL); PLATELET MORPHOLOGY NORMAL (NORMAL); SCAN/DIFF AUTO DIFF CONFIRMED
[2016-10-04] VITALS: BP 109/57; PULSE 54; RESP 18; TEMP 97.3; O2SAT 97
[2016-10-04] MEDS: PYRIDOSTIGMINE BROMIDE 60 MG TAB PO SCH ×2 (05:55→11:44)
[2016-10-04] MEDS: GENTAMICIN SULFATE 0.3% OPHT SOLN 5 ML BTL RIGHT EYE SCH ×4 (05:57→11:45)
[2016-10-04 08:00] VITALS: BP 162/75; PULSE 60; RESP 16; TEMP 95.9; O2SAT 93
[2016-10-04] MEDS: PSYLLIUM FIBER SF/GF 6 GM POWD PKT PO SCH (09:00)
--- NOTE | 2016-10-04 09:01 | HHI.PR ---
Subjective Remarks still occ diplopia no resendiz Objective Vital Signs Date Time Temp Pulse Resp B/P Pulse Ox O2 Delivery O2 Flow Rate FiO2 10/04/16 08:00 95.9 60 16 162/75 93 10/04/16 00:00 97.3 54 18 109/57 97 10/03/16 21:00 Room Air 10/03/16 20:02 62 10/03/16 20:00 96.8 64 18 116/63 100 10/03/16 14:00 97.4 62 18 134/65 99 10/03/16 12:00 97.6 62 18 134/65 98 I/O 10/03/16 10/03/16 10/03/16 10/04/16 10/04/16 10/04/16 07:00 15:00 23:00 07:00 15:00 23:00 Intake Total 240 ml 480 ml 120 ml Output Total 200 ml Balance 240 ml 280 ml 120 ml Intake Oral 240 ml 480 ml 120 ml Output Urine Total 200 ml # Voids 1 2 1 # Bowel Movements 0 0 0 Result Diagram: 10/03/16 0750 10/03/16 0750 Objective Remarks voice same facial strength eye closure and buccal same good vff eomi no nyst face sym tongue mid 12/31 t/o no double now ox3 alert Assessment and Plan Assessment and Plan imp mg pex sp #5 yest fibrinogen low bulbar fxt much better eating now solids well oob can hep lock while oob and ambulate better bp control immuran will need extended course of plasma exchange he is doing better steroids 30mg today will inc tomorrow plt watch stable plan is to put on steroids to day and inc tomorrow and continue pex for at least 7 sessions he could do some outpatient if he tolerates steroids ok over next few days 09/29/16 possible tia and will do maddox i think more likey vasovagal and brought out sx of mg as he felt like he might pass out but did not sr overnoc in icu now maddox ok pex if mri neg today may be alittle worse after steroid start stay on 30 mg for today 09/30/16 i reviewed mri there is a small amt of acute blood in interhemispheric fissure posteriorly on left by occipital lobe and left cbllr extaaxial old left sdh small check eeg idw rads i kevin stoddard will change to ffp with pex check mrv fu holter i think this likely explains his episode the other noc have bryan comment no aneurism on mra 10/01/16 no new problems no resendiz mrv yest nl i am inc pred today to 60 mg am i dw dr stoddard replacement today and in all future pex he will get number 7 in am and if on tuesday he feels well and fibrinogen not too low he could dc and see dr stoddard on tue for another pex and possible pull line then so we need to check his fibinogen and cbc tuesday b4 dc fu holter he will call me on tuesday we will recheck mri brain today make sure no inc is sdh size i dw nunoel yest dr weinstein thought spontaneous sdh / 10/04/16 he is doing well and ok to dc on prednisone 60 anm and mestinon i dw him and dr [facility] can dc it tue if we decide no pex then ct today no acute blood on it but i think he did have some acute subdural occipital on mri as noted on both mri but stable overall and i think this likley accounts for his vision change fu my office tue am at 845 am Mickey Loyola MD Oct 04, 2016 09:01
--- NOTE | 2016-10-04 09:09 | HHI.FPPN ---
Subjective Remarks Patient seen and examined this morning. Denies any complaints/concerns this morning. Is ready to go home. Received PEX yesterday, is awaiting lab results this morning. No trouble swallowing or breathing. Denies fever/chills, chest pain, SOB, abdominal pain, leg pain. (Corey Mondragon MD R1) Objective Vitals Vital Signs Date Time Temp Pulse Resp B/P Pulse Ox O2 Delivery O2 Flow Rate FiO2 10/04/16 08:00 95.9 60 16 162/75 93 10/04/16 00:00 97.3 54 18 109/57 97 10/03/16 21:00 Room Air 10/03/16 20:02 62 10/03/16 20:00 96.8 64 18 116/63 100 10/03/16 14:00 97.4 62 18 134/65 99 10/03/16 12:00 97.6 62 18 134/65 98 I/O 10/03/16 10/03/16 10/03/16 10/04/16 10/04/16 10/04/16 07:00 15:00 23:00 07:00 15:00 23:00 Intake Total 240 ml 480 ml 120 ml Output Total 200 ml Balance 240 ml 280 ml 120 ml Intake Oral 240 ml 480 ml 120 ml Output Urine Total 200 ml # Voids 1 2 1 # Bowel Movements 0 0 0 (Corey Mondragon MD R1) Result Diagram: 10/03/16 0750 10/03/16 0750 Objective Remarks CONST: male sitting up comfortably in chair, in NAD. Normal speech HEENT: Poor halfway with multiple missing teeth. Conjunctiva clear. PERRL. EOMI. MMM RESP: Lungs CTAB. No wheezes. CV: RRR. No murmur appreciated. GI: Soft non-tender, non-distended. No masses. +BS. R ventral hernia. MSK: Muscle tone symmetrical, appropriate. NEURO: Speech regular. Strength 5/5 upper and lower extremities. Extremities neurovascularly intact. PSYCH: Affect appropriate. Good insight. Procedures 09/20- RIJ catheter placed 09/21, 09/23, 09/25- Plasmapheresis (Corey Mondragon MD R1) Date of Insertion: Sep 20, 2016 Line: Central Venous Catheter Side: Right Location: Internal, Jugular (Corey Mondragon MD R1) A/P Assessment and Plan 85y male with myasthenia gravis, metastatic colon cancer, and metastatic prostate cancer, presented with dysarthria and dysphagia, admitted 09/19/16 for myasthenia gravis exacerbation. Discharge Planning Signed off by neurology. Receiving last PEX yesterday Patient cleared for discharge from primary team standpoint Awaiting cleared for discharge by hematology WDW: Dr. Doherty (Corey Mondragon MD R1) Attending Attestation Patient seen and examined. Case reviewed and discussed with the resident team. Agree with plan of care as discussed with me and documented in the resident note. (Chris Doherty MD) Problem List: (1) Myasthenia gravis with acute exacerbation Status: Acute Plan: Presented with dysarthria and dysphagia. Home medicines pyridostigmine and azathioprine. Consulted Neurology, Heme Onc (follows outpatient with Dr. Garcia). RIJ placed 09/20/16 by IR. Plan -Cleared by neurology for discharge -Continue Regenol 4mg IV TID Azathioprine 25mg PO BID -Prednisone 60mg daily Neurology and Hematology consulted -Due for PEX on Tuesday -Receiving seventh and final plasma exchange for this hospitalization (2) HTN (hypertension) Status: Chronic Plan: History of anxiety - Clonidine Patch 0.1mg Q7days (3) Blepharitis Status: Resolved Plan: Erythema improved. Conjunctiva not-injected. Ptosis R eye. Plan -Pt did not tolerate ointment- made it difficult to see, dosed QID -s/p Erythromycin ointment 1g QID x 5-7 days (09/25-09/26 ) -s/p Gentamicin 0.3% solution (4) Constipation Status: Chronic Plan: Hx constipation, multiple SBO, s/p multiple surgeries, including partial colectomy for metastatic colon cancer. Home Benefiber, not in formulary. Plan Continue Colace 100mg BID Milk of magnesium 30 mL BID PRN constipation -Start Metamucil powder 1 packet daily, mixed into 8oz water or applesauce, pudding, or other thickened liquid/puree (5) Fibrinogen decreased Status: Acute Plan: Admitted with fibrinogen 223, decreased to low of 66. Likely secondary to plasmapheresis S/p 1 unit cryoprecipitate 09/25 & 1 unit 1/31 per Hematology Oncology -Daily fibrinogen -Given 1 unit cryoprecipitate / (6) Thrombocytopenia Status: Chronic Plan: Platelets 131k on admission. Moderate thrombocytopenia. -Heparin prophylaxis placed on hold as plasma exchange can produce a predictable decrease in blood coagulation factors that may predispose to bleeding -Daily CBC, continue to monitor -Consider platelet transfusion if spontaneous bleeding, platelets <30k, or per Heme Onc recommendations to tolerate plasmapheresis (7) Hypokalemia Status: Resolved Plan: K stable -Continue to monitor and replete, as needed (8) Hx of malignant neoplasm of prostate Status: Chronic Plan: -Leuprolide 45mg INJ every other week (9) Anxiety Status: Chronic Plan: Home 0.25 Xanax q4h, uses sparingly. Continue to monitor (10) Vitamin B 12 deficiency Status: Chronic Plan: -Received monthly Vit B12 shot 09/22/16 (11) Nutrition, metabolism, and development symptoms Status: Chronic Plan: Fluids: Per PO Electrolytes: wnl. continue to monitor Diet: mechanical soft, heart healthy diet DVT prophylaxis: SCDs, heparin prophylaxis placed on hold as plasma exchange can produce a predictable decrease in blood coagulation factors that may predispose to bleeding GI prophylaxis: not indicated OOB with assistance (Corey Mondragon MD R1) Problem Qualifiers (1) HTN (hypertension): Qualified Code: I10 - Essential hypertension (2) Blepharitis: Qualified Code: H01.001 - Blepharitis of both upper and lower eyelid of right eye, unspecified type (3) Constipation: Qualified Code: K59.01 - Slow transit constipation Corey Mondragon MD R1 Oct 04, 2016 09:09 Chris Doherty MD Oct 04, 2016 11:24
--- NOTE | 2016-10-04 09:24 | RADRPT ---
EXAM DATE/TIME: 10/04/2016 08:48 [facility] COMPARISON: MRI BRAIN W & W/O CONTRAST, September 29, 2016, 10:25. MRI BRAIN W/O CONTRAST, October 01, 2016, 15: 05. CT BRAIN W/O CONTRAST, July 03, 2014, 15:57. INDICATIONS: Intracerebral hemorrhage RADIATION DOSE: 34.10 CTDIvol (mGy) MEDICAL HISTORY: Carcinoma, colon. Myasthenia gravis SURGICAL HISTORY: None. ENCOUNTER: Subsequent ACUITY: 4 - 6 days PAIN SCALE: 2/10 LOCATION: Bilateral cranial TECHNIQUE: Multiple contiguous axial images were obtained of the head. Using automated exposure control and adj ustment of the mA and/or kV according to patient size, radiation dose was kept as low as reasonably a chievable to obtain optimal diagnostic quality images. FINDINGS: There are subacute subdural hematomas bilaterally larger on the left than the right and measu ring 10 mm in greatest width on the left extending from the frontal to the parietal regions and measuring 6 mm in greatest width on the right predominantly located within the right posterior parietal region. Underlying ce rebral atrophy is noted. Moderate periventricular white matter small vessel ischemic changes are noted. There is no a cute hemorrhage or midline shift. CONCLUSION: 1. Bilateral subacute subdural hematomas (larger on the left than the right). The left frontal fatimah etal subdural hematoma measures 10 mm in greatest width and the right posterior parietal subdural hem atoma measures 6 mm in greatest width. 2. No midline shift or acute hemorrhage. 3. Moderate periventricular white matter small vessel ischemic changes bilaterally. 4. Cerebral atrophy. Matt Coughlin MD on October 04, 2016 at 8:59 Board Certified Radiologist. This report was verified electronically.
[2016-10-04] MEDS: azaTHIOprine 50 MG TAB PO SCH (09:58)
[2016-10-04] MEDS: CALCIUM CARBONATE 500 MG CHEWABLE TAB CHEW SCH (09:58)
[2016-10-04] MEDS: FAMOTIDINE 20 MG TAB PO SCH (09:58)
[2016-10-04] MEDS: predniSONE 20 MG TAB PO SCH (09:58)
[2016-10-04] MEDS: CHOLECALCIFEROL (VIT D3) 5000 UNIT CAP PO SCH (09:58)
[2016-10-04] MEDS: DOCUSATE SODIUM 100 MG CAP PO SCH (09:59)
[2016-10-04] MEDS: SODIUM CHLORIDE 0.9% FLUSH 5 ML FLUSH FLUSH SCH (09:59)
[2016-10-04 10:16] VITALS: BP 123/55; PULSE 61; RESP 16; TEMP 95.7; O2SAT 99
[2016-10-04 10:24] VITALS: PULSE 60
--- NOTE | 2016-10-04 10:30 | PD.ONC.PN ---
Subjective Subjective Remarks Afebrile overnight. Pt sitting up at bedside eating breakfast. He tells me he feels great. He is hoping to go home today. He denies pain or SOB. Objective Data Date Time Temp Pulse Resp B/P Pulse Ox O2 Delivery O2 Flow Rate FiO2 10/04/16 08:00 95.9 60 16 162/75 93 10/04/16 00:00 97.3 54 18 109/57 97 10/03/16 21:00 Room Air 10/03/16 20:02 62 10/03/16 20:00 96.8 64 18 116/63 100 10/03/16 14:00 97.4 62 18 134/65 99 10/03/16 12:00 97.6 62 18 134/65 98 Result Diagram: 10/03/16 0750 10/03/16 0750 Laboratory Results Laboratory Tests Test 10/03/16 10:40 Blood Bank Comment Imaging Studies Last Impressions Brain MRI 10/01/16 0000 Signed Impressions: Service Date/Time: Saturday, October 01, 2016 15:05 - CONCLUSION: 1. Atrophy with marked periventricular white matter changes. 2. Negative for acute infarct. Jose Simental MD FACR Head/Brain Mag Res Venography 09/30/16 0000 Signed Impressions: Service Date/Time: September 12:37 - CONCLUSION: No evidence of venous thrombosis. Marco Lewis MD Neck Magnetic Resonance Angiography 09/29/16 0837 Signed Impressions: Service Date/Time: Thursday, September 29, 2016 10:25 - CONCLUSION: No evidence of significant atherosclerotic vascular disease or hemodynamically significant stenosis. Marco Lewis MD Head Magnetic Resonance Angiography 09/29/16 0837 Signed Impressions: Service Date/Time: Thursday, September 29, 2016 10:25 - CONCLUSION: 1. Examination is within normal limits for age. 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 Vamshi Ellis MD Chest X-Ray 09/20/16 0239 Signed Impressions: Service Date/Time: Tuesday, September 20, 2016 03:04 - CONCLUSION: No acute disease. No significant change has occurred. Reece Peters MD Catheter Placement X-Ray 09/20/16 0000 Signed Impressions: Service Date/Time: Tuesday, September 20, 2016 10:48 - CONCLUSION: Uncomplicated line placement as above. Catheter functions well and is ready for use. Agustin Guajardo Jr., MD Administered Medications Medications (Trade) Dose Ordered Sig/Brock Route PRN Reason Start Time Stop Time Status Last Admin Dose Admin Azathioprine (Imuran) 25 mg BID PO 09/20/16 09:00 10/03/16 21:00 Docusate Sodium (Colace) 100 mg BID PO 09/20/16 09:00 10/03/16 21:00 IV Flush (NS Flush) 2 ml UNSCH PRN FLUSH FLUSH AFTER USING IV ACCESS 09/20/16 02:45 10/03/16 08:49 IV Flush (NS Flush) 2 ml BID FLUSH 09/20/16 09:00 10/03/16 21:00 Magnesium Hydroxide 30 ml 30 ml Q12H PRN PO CONSTIPATION 09/20/16 02:45 09/26/16 21:48 Sodium Chloride (NS 1000 ml Inj) 1,000 ml @ 0 mls/hr Q48H IV 09/21/16 15:00 09/29/19 23:00 09/29/16 12:28 Clonidine (Catapres-Tts 0.1mg Patch.7d) 1 patch Q7D TD 09/23/16 09:00 09/30/16 09:30 Miscellaneous Information 1 Q7D T-DERMAL 09/30/16 09:00 09/30/16 09:00 Psyllium Hydrophilic Mucilloid (Metamucil Smooth Texture Sf/ Gf Pkt) 1 pkt DAILY PO 09/26/16 13:00 10/01/16 08:30 Gentamicin Sulfate (Gentamicin Opht 0.3% Soln) 1 drop Q4HR RIGHT EYE 09/26/16 16:00 10/04/16 05:57 Alprazolam (Xanax) 0.25 mg HS PRN PO SLEEP 09/27/16 01:45 10/03/16 20:59 Famotidine (Pepcid) 20 mg Q12HR PO 09/28/16 10:00 10/03/16 20:59 Cholecalciferol (Vitamin D3) 5,000 units DAILY PO 09/28/16 11:00 10/03/16 08:44 Calcium Carbonate (Tums Chew) 500 mg DAILY CHEW 09/28/16 09:00 10/03/16 08:43 Pyridostigmine [place] (Mestinon) 120 mg TID@07,12,16 PO 09/29/16 09:30 10/04/16 05:55 Miscellaneous (Pill Splitter) 1 ea UNSCH PRN OTHER SEE LABEL COMMENTS 09/29/16 09:45 09/29/16 21:12 Prednisone (Deltasone) 60 mg DAILY PO 10/01/16 09:00 10/03/16 08:43 Heparin Sodium (Porcine) (Heparin Inj) 5,000 units UNSCH PRN IVF FLUSH AFTER USING IV ACCESS 10/03/16 10:00 10/03/16 14:23 Objective Remarks GENERAL: Elderly male, sitting up at bedside eating breakfast. SKIN: Warm and dry. Vas-cath, right neck. No oozing. HEAD: Normocephalic. EYES: No injection or drainage. Wears glasses. NECK: Supple, trachea midline. CARDIOVASCULAR: +S1/S2. No murmur appreciated. RESPIRATORY: Breath sounds equal bilaterally. No accessory muscle use. GASTROINTESTINAL: Abdomen soft, non-tender, nondistended. EXTREMITIES: No cyanosis NEUROLOGICAL: Awake and alert, normal speech. moving extremities. Facial movements symmetric. PERRLA Assessment/Plan Problem List: (1) Myasthenia gravis Status: Chronic Plan: 10/04/16: Received his last plasma exchange yesterday. Awaiting labs today. If OK he will be cleared for discharge. He will be D/C'd home with [facility] in place and followup with Dr. Loyola on Tuesday in office. They will decide at that time if he will need any further PEX treatments. Per neurology he should be discharged home on prednisone and mestinon. 10/03/16: PEX # 7 today. will check labs tomorrow and then patient can be d/c 10/02/16: no bleeding. PEX #7 tomorrow. 10/01/16: given plasma exchange last night with 2 units FFP and the rest 5% albumin. fibrinogen 77 this AM, given 1 unit cryo 09/30/16: Orders written for pt to get 2 more plasma exchange treatments. He will get one tomorrow (10/01) and Tuesday (10/03). Will change to plasma from albumin on treatments. Will reconsult PT to help with conditioning. Fibrinogen level at 66 today. No bleeding. Will give 1 unit cryoprecipitate. 09/29/16: Plasma exchange #5 today. Labs stable. Plan for two more treatments as an outpatient. Recheck labs in am. 09/28/16: off day. fibrinogen 67. monitor for bleeding. Give 1 unit cryo. Neurology note reviewed, plan for a total of 7 PEX now. consider outpatient after steroids started. 09/27/16: PEX #4 today. Platelets 84k today. Up from 76k yesterday. Received 1 unit cryo over the weekend. Fibrinogen 130 today. He is overall improving. 09/25/15: PEX #3. [id number]. will give 1 unit cryo today after PEX 09/24/15: Second plasma exchange yesterday. He states his swallowing and speech seem improved today. Plan for exchange #3 tomorrow. Continue supportive care, PT. 09/23/16 Had second plasma phereses today . He is feeling somewhat better. continue pheresis QOD 09/22/16: Had 1st plasma exchange yesterday. Still c/o trouble swallowing. Speech therapy following. He should get exchange #2 tomorrow. 09/21/16: proceed with day 1 of PEX. monitor CBC, coags, calcium --heparin prophylaxis placed on hold as plasma exchange can produce a predictable decrease in blood coagulation factors that may predispose to bleeding. --PEX QOD x 7 total doses. Assessment 85y/o male with myasthenia gravis admitted with exacerbation. Hematology consulted to coordinate plasma exchange Attending Statement feels better. coags are Yaniv d/w DR Loyola. Ok to d/c home. The exam, history, and the medical decision-making described in the above note were completed with the assistance of the mid-level provider. I reviewed and agree with the findings presented. I attest that I had a [id number] encounter with the patient on the same day, and personally performed and documented my assessment and findings in the medical record. Halle Deng Oct 04, 2016 09:46 Gabriel Garcia MD Oct 04, 2016 13:08
[2016-10-04 10:37] LABS: BASOPHIL % 0.5 % (0.0-2.0); EOSINOPHIL # 0.1 TH/MM3 (0-0.4); EOSINOPHIL % 1.3 % (0.0-4.0); HEMATOCRIT 33.7 % (39.0-51.0); HEMO FLAGS DIFF FINAL; LYMPHOCYTE # 0.6 TH/MM3 (1.0-4.8); MEAN CELL VOLUME 86.5 FL (80.0-100.0); MEAN CORPUSCULAR HEMOGLOBIN 28.2 PG (27.0-34.0); MEAN CORPUSCULAR HGB CONC 32.6 % (32.0-36.0); MONO % 12.1 % (0.0-8.0); NEUT % 71.1 % (16.0-70.0); PLATELET COUNT 120 TH/MM3 (150-450); WHITE BLOOD COUNT 4.2 TH/MM3 (4.0-11.0)
[2016-10-04 10:48] LABS: APTT (PATIENT) 24.4 SEC (24.3-30.1); PROTHROMBIN TIME - PATIENT 11.4 SEC (9.8-11.6)
[2016-10-04] MEDS ORDERED: PRED20 PO (11:17)
--- NOTE | 2016-10-04 11:23 | HHI.DCPOC ---
Discharge Care Plan Diagnosis: (1) Myasthenia gravis with acute exacerbation (2) Thrombocytopenia (3) Blepharitis (4) HTN (hypertension) (5) Fibrinogen decreased (6) Hypokalemia (7) Conjunctivitis (8) Hx of malignant neoplasm of prostate Goals to Promote Your Health * To prevent worsening of your condition and complications * To maintain your health at the optimal level Directions to Meet Your Goals Take your medications as prescribed Follow your dietary instruction Follow activity as directed Keep your appointments as scheduled Take your immunizations and boosters as scheduled If your symptoms worsen call your PCP, if no PCP go to Urgent Care Center or Emergency Room Smoking is Dangerous to Your Health. Avoid second hand smoke Call the 24-hour hour crisis hotline for domestic abuse at Corey Mondragon MD R1 Oct 04, 2016 11:23
--- NOTE | 2016-10-04 11:29 | HHI.DS ---
Discharge Summary Admission Date Sep 22, 2016 at 12:00 Discharge Date: Oct 04, 2016 Admitting Diagnosis Myasthenia Gravis Exacerbation (1) Myasthenia gravis with acute exacerbation Diagnosis: Principal Plan: Presented with dysarthria and dysphagia. Home medicines pyridostigmine and azathioprine. Consulted Neurology, Heme Onc (follows outpatient with Dr. Garcia). RIJ placed 09/20/16 by IR. Plan -Cleared by neurology for discharge -Continue Regenol 4mg IV TID Azathioprine 25mg PO BID -Prednisone 60mg daily Neurology and Hematology consulted -Due for PEX on Tuesday -Receiving seventh and final plasma exchange for this hospitalization (2) HTN (hypertension) Diagnosis: Secondary Plan: History of anxiety - Clonidine Patch 0.1mg Q7days (3) Blepharitis Diagnosis: Secondary Plan: Erythema improved. Conjunctiva not-injected. Ptosis R eye. Plan -Pt did not tolerate ointment- made it difficult to see, dosed QID -s/p Erythromycin ointment 1g QID x 5-7 days (09/25-09/26 ) -s/p Gentamicin 0.3% solution (4) Constipation Diagnosis: Secondary Plan: Hx constipation, multiple SBO, s/p multiple surgeries, including partial colectomy for metastatic colon cancer. Home Benefiber, not in formulary. Plan Continue Colace 100mg BID Milk of magnesium 30 mL BID PRN constipation -Start Metamucil powder 1 packet daily, mixed into 8oz water or applesauce, pudding, or other thickened liquid/puree (5) Fibrinogen decreased Diagnosis: Principal Plan: Admitted with fibrinogen 223, decreased to low of 66. Likely secondary to plasmapheresis S/p 1 unit cryoprecipitate 09/25 & 1 unit 09/28 per Hematology Oncology -Daily fibrinogen -Given 1 unit cryoprecipitate / (6) Thrombocytopenia Diagnosis: Principal Plan: Platelets 131k on admission. Moderate thrombocytopenia. -Heparin prophylaxis placed on hold as plasma exchange can produce a predictable decrease in blood coagulation factors that may predispose to bleeding -Daily CBC, continue to monitor -Consider platelet transfusion if spontaneous bleeding, platelets <30k, or per Heme Onc recommendations to tolerate plasmapheresis (7) Hypokalemia Diagnosis: Secondary Plan: K stable -Continue to monitor and replete, as needed (8) Hx of malignant neoplasm of prostate Diagnosis: Secondary Plan: -Leuprolide 45mg INJ every other week (9) Anxiety Diagnosis: Secondary Plan: Home 0.25 Xanax q4h, uses sparingly. Continue to monitor (10) Vitamin B 12 deficiency Diagnosis: Secondary Plan: -Received monthly Vit B12 shot 09/22/16 (11) Nutrition, metabolism, and development symptoms Diagnosis: Secondary Plan: Fluids: Per PO Electrolytes: wnl. continue to monitor Diet: mechanical soft, heart healthy diet DVT prophylaxis: SCDs, heparin prophylaxis placed on hold as plasma exchange can produce a predictable decrease in blood coagulation factors that may predispose to bleeding GI prophylaxis: not indicated OOB with assistance Consultants Neurology, Heme/Onc Procedures 09/20- RIJ catheter placed 09/21, 09/23, 09/25- Plasmapheresis Brief History Mr. Peters is an 85 y/o M with a PMHx of myasthenia gravis, metastatic colon cancer, and metastatic prostate cancer presenting to the ED with swallowing difficulties. The patient states that approximately 2 weeks ago he had dental work performed on his upper teeth. Since that time he has had increasing difficulty when trying to speak. On Tuesday, he started to have difficulty swallowing his food and liquids. He then contacted his neurologist, Dr. Loyola , who recommended him go to the ER for further evaluation. The patient declined as he felt that he was "not that bad." However, over the weekend he started having more issues when trying to swallow and talk to the point where he would salivate on himself. He states that he has had similar episodes like this before where plasmapheresis resolved his clinical issues. He most recently under went plasmapheresis approximately 10 months ago (November 2015). His only other complaint is a mild, nonproductive cough he states that has been his baseline since being diagnosed with myasthenia gravis. Otherwise he has no complaints and denies any fevers, chill, SOB, chest pain, NVD, or calf tenderness. His PCP is Dr[facility] Doherty [facility]. CBC/BMP: 10/04/16 1025 10/03/16 0750 Significant Findings Laboratory Tests Test 10/02/16 10/02/16 10/03/16 10/04/16 09:00 10:54 07:50 10:25 Red Blood Count 3.99 MIL/MM3 3.32 MIL/MM3 3.90 MIL/MM3 (4.50-5.90) (4.50-5.90) (4.50-5.90) Hemoglobin 11.2 GM/DL 9.4 GM/DL 11.0 GM/DL (13.0-17.0) (13.0-17.0) (13.0-17.0) Hematocrit 34.6 % 28.6 % 33.7 % (39.0-51.0) (39.0-51.0) (39.0-51.0) Red Cell Distribution Width 18.0 % 18.0 % 18.0 % (11.6-17.2) (11.6-17.2) (11.6-17.2) Platelet Count 116 TH/MM3 95 TH/MM3 120 TH/MM3 (150-450) (150-450) (150-450) Neutrophils (%) (Auto) 75.7 % 78.8 % 71.1 % (16.0-70.0) (16.0-70.0) (16.0-70.0) Monocytes (%) (Auto) 10.3 % 11.4 % 12.1 % (0.0-8.0) (0.0-8.0) (0.0-8.0) Lymphocytes # (Auto) 0.5 TH/MM3 0.3 TH/MM3 0.6 TH/MM3 (1.0-4.8) (1.0-4.8) (1.0-4.8) Blood Urea Nitrogen 21 MG/DL (7-18) 28 MG/DL (7-18) Estimat Glomerular Filtration 80 ML/MIN (>89) Rate Random Glucose 110 MG/DL 112 MG/DL (74-106) (74-106) Prothrombin Time 11.8 SEC 11.8 SEC (9.8-11.6) (9.8-11.6) Activated Partial 30.6 SEC Thromboplast Time (24.3-30.1) Fibrinogen 155 mg/dL 139 mg/dL 188 mg/dL (181-393) (181-393) (227-377) White Blood Count 3.8 TH/MM3 (4.0-11.0) Platelet Estimate LOW (NORMAL) Imaging Last Impressions Head CT 10/04/16 0000 Signed Impressions: Service Date/Time: Tuesday, October 04, 2016 08:48 - CONCLUSION: 1. Bilateral subacute subdural hematomas (larger on the left than the right). The left frontal parietal subdural hematoma measures 10 mm in greatest width and the right posterior parietal subdural hematoma measures 6 mm in greatest width. 2. No midline shift or acute hemorrhage. 3. Moderate periventricular white matter small vessel ischemic changes bilaterally. 4. Cerebral atrophy. Matt Coughlin MD Brain MRI 10/01/16 0000 Signed Impressions: Service Date/Time: Saturday, October 01, 2016 15:05 - CONCLUSION: 1. Atrophy with marked periventricular white matter changes. 2. Negative for acute infarct. Jose Simental MD FACR Head/Brain Mag Res Venography 09/30/16 Signed Impressions: Service Date/Time: September 12:37 - CONCLUSION: No evidence of venous thrombosis. Marco Lewis MD Neck Magnetic Resonance Angiography 09/29/1637 Signed Impressions: Service Date/Time: Thursday, September 29, 2016 10:25 - CONCLUSION: No evidence of significant atherosclerotic vascular disease or hemodynamically significant stenosis. Marco Lewis MD Head Magnetic Resonance Angiography 09/29/1637 Signed Impressions: Service Date/Time: Thursday, September 29, 2016 10:25 - CONCLUSION: 1. Examination is within normal limits for age. 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 Vamshi Ellis MD Chest X-Ray 09/20/16 0239 Signed Impressions: Service Date/Time: Tuesday, September 20, 2016 03:04 - CONCLUSION: No acute disease. No significant change has occurred. Reece Peters MD Catheter Placement X-Ray 09/20/16 0000 Signed Impressions: Service Date/Time: Tuesday, September 20, 2016 10:48 - CONCLUSION: Uncomplicated line placement as above. Catheter functions well and is ready for use. Agustin Guajardo Jr., MD PE at Discharge CONST: male sitting up comfortably in chair, in NAD. Normal speech HEENT: Poor group home with multiple missing teeth. Conjunctiva clear. PERRL. EOMI. MMM RESP: Lungs CTAB. No wheezes. CV: RRR. No murmur appreciated. GI: Soft non-tender, non-distended. No masses. +BS. R ventral hernia. MSK: Muscle tone symmetrical, appropriate. NEURO: Speech regular. Strength 5/5 upper and lower extremities. Extremities neurovascularly intact. PSYCH: Affect appropriate. Good insight. Hospital Course 85 year-old male with myasthenia gravis, metastatic colon cancer, and metastatic prostate cancer admitted 09/19/16 for myasthenia gravis exacerbation. Apart from dysarthria and dysphagia, neurological exam otherwise grossly within normal limits. Home medications for MG include pyridostigmine and azathioprine. Due to difficulty swallowing, pyridostigmine PO has been converted to equivalent Regonol 4mg IV q8h. Azathioprine currently held and should be re- started when patient able to swallow pills. Pt follows outpatient Heme Onc with Dr. Garcia. As inpatient, Neurology and Heme Onc were consulted. Minimum five episodes plasmapheresis was planned (09/21 , 09/23, 09/25, 09/27, 09/29) with access via R internal jugular catheter (placed ). There was also discussion of trial of steroids, but patient had poor response to this in the past and Neurology wanted to go slow and keep patient inpatient for trial, which has not yet been done. Pt had similar symptoms 8 months ago and had almost immediate response to first episode of plasmapheresis to the point he finished remainer of treatments as outpatient. Recovery has been markedly slower this hospitalization. Hospital course was complicated by HTN managed with clonidine patch, blepharitis of R eye tx Gentamicin eye drops, hypokalemia, low fibrinogen, and thrombocytopenia. PT is seeing pt 3x/week and has recommended home with home health, OT stated no OT needed, ST are continuing to see on daily basis and give diet recommendations. Patient received a total of 7 Plamsa exchanges. He had an episode of double vision and dizziness, but MRI workup was negative for stroke. He remained stable and clinically improved everyday. Discharged home with follow-up with neurology. Pt Condition on Discharge: Stable Discharge Disposition: Discharge Home Discharge Instructions DIET: Follow Instructions for: Heart Healthy Diet Activities you can perform: Regular-No Restrictions, See Additionl Instruction Other Activity Instructions: Use cane Follow up Referrals: Hematology - 1 Week Neurology - 10/06/16 with Mickey Loyola MD PCP Follow-up - 1 Week with Chris Doherty MD New Medications: Prednisone (Prednisone) 20 Mg Tab 60 MG PO DAILY #30 TAB Continued Medications: Alprazolam (Xanax) 0.25 Mg Tab 0.25 MG PO DAILY PRN ANXIETY #60 Ref 2 TAB Azathioprine (Imuran) 50 Mg Tab 25 MG PO BID Hazardous agent: use appropriate precautions for handling and disposal. Immunosuppression #60 Ref 0 TAB Docusate Sodium (Colace) 100 Mg Cap 100 MG PO BID Constipation #60 Ref 0 CAP Leuprolide (6 Month) Inj Kit (Lupron Depot Inj Kit) 45 Mg Kit 45 MG IM DIRECTED #1 Ref 0 KIT Pyridostigmine (Mestinon) 60 Mg Tab 120 MG PO TID Manage Myastenia Gravis #360 Ref 0 TAB ([vitamin b12]) 1000 MG IM DIRECTED Corey Mondragon MD R1 Oct 04, 2016 11:29
[2016-10-04 12:00] VITALS: BP 127/63; PULSE 64; RESP 16; TEMP 98.1; O2SAT 98
[2016-10-12] MEDS ORDERED: TRAM50TA PO (15:56)
[2016-10-18] MEDS ORDERED: ALPR.25 PO (14:16)
[2016-10-18] MEDS ORDERED: TRAM50TA PO (14:16)
[2016-10-21] MEDS ORDERED: VITA2000 PO (11:40)
[2016-10-21] MEDS ORDERED: RANI150T PO (11:40)
[2016-10-21] MEDS ORDERED: TUMS500C CHEW (11:40)
[2016-10-23] MEDS ORDERED: CEPH-460 PO (04:00)
[2016-11-08] MEDS ORDERED: GENT0.3S2 LEFT EYE (15:50)
[2016-11-24] MEDS ORDERED: CYAN1000P IM (08:34)
[2016-12-24] MEDS ORDERED: OCUVTAB4 PO (08:53)
[2016-12-24] MEDS ORDERED: ALPR.25 PO (08:53)
[2016-12-24] MEDS ORDERED: ENSULIQ8 PO (08:53)
[2016-12-24] MEDS ORDERED: DULC10SU3 RECTAL (08:53)
[2016-12-24] MEDS ORDERED: MEST60TA PO (08:53)
[2016-12-24] MEDS ORDERED: TYLE325T PO (08:53)
[2016-12-24] MEDS ORDERED: MILKSUS PO (08:53)
[2017-02-14] MEDS ORDERED: DOCU100C PO (11:05)
[2017-02-22] MEDS ORDERED: ALPR.25 PO (12:50)
== END 2016-10-04 13:17 | disposition home or self-care (01) | DRG 56 ==
LOC: NEPC 23:40 → INTOOBSV 09-20 01:23 → NEDA 09-20 01:23 → N05A 09-20 18:57 → OBSVTOIN 09-22 12:00 → HIME 09-29 00:35 → HOCB 09-30 18:30
PROVIDERS: ADMIT Family Medicine; ATTEND Family Medicine
PROC: 05HM33Z Insertion of Infusion Device into Right Internal Jugular Vein, Percutaneous Approach (ICD-10-PCS; 2016-09-20)
PROC: B543ZZA Ultrasonography of Right Jugular Veins, Guidance (ICD-10-PCS; 2016-09-20)
PROC: 6A551Z3 Pheresis of Plasma, Multiple (ICD-10-PCS; principal; 2016-09-21)
PROC: 30233M1 Transfusion of Nonautologous Plasma Cryoprecipitate into Peripheral Vein, Percutaneous Approach (ICD-10-PCS; 2016-09-25)
PROC: 30233K1 Transfusion of Nonautologous Frozen Plasma into Peripheral Vein, Percutaneous Approach (ICD-10-PCS; 2016-10-01)
DX: G70.01 Myasthenia gravis with (acute) exacerbation (principal); I62.03 Nontraumatic chronic subdural hemorrhage; D69.6 Thrombocytopenia, unspecified; R13.19 Other dysphagia; I10 Essential (primary) hypertension; R47.1 Dysarthria and anarthria; K59.00 Constipation, unspecified; Z85.46 Personal history of malignant neoplasm of prostate; Z85.038 Personal history of other malignant neoplasm of large intestine; E78.5 Hyperlipidemia, unspecified; F41.9 Anxiety disorder, unspecified; H01.003 Unspecified blepharitis right eye, unspecified eyelid; E87.6 Hypokalemia; E53.8 Deficiency of other specified B group vitamins; K08.409 Partial loss of teeth, unspecified cause, unspecified class; H91.90 Unspecified hearing loss, unspecified ear; M19.90 Unspecified osteoarthritis, unspecified site
CPT/HCPCS: 36430; 36514; 36556; 70450; 70544; 70546; 70548; 70551; 70553; 71010; 76937; 77001; 80048; 80053; 81001; 82310; 82550; 82607; 82746; 84450; 84460; 84484; 85025; 85027; 85384; 85610; 85730; 86927; 86965; 87641; 93005; 93225; 93226; 93306; 94150; 96360; A9579; C1752; G0378; J0610; J1644; J3420; J7030; J7050; J7070; J7500; J7512; P9017; P9045

== ENCOUNTER 2016-10-08 13:01 | Day surgery (SDC) | payer MEDICARE ==
[~2016-10-08 13:01] MED LIST changes: +PRED20 PO
[2016-10-08 13:19] VITALS: BP 134/68; PULSE 71; RESP 20; TEMP 98.1; O2SAT 93
[2016-10-12] MEDS ORDERED: TRAM50TA PO (15:56)
[2016-10-18] MEDS ORDERED: ALPR.25 PO (14:16)
[2016-10-18] MEDS ORDERED: TRAM50TA PO (14:16)
[2016-10-21] MEDS ORDERED: TUMS500C CHEW (11:40)
[2016-10-21] MEDS ORDERED: RANI150T PO (11:40)
[2016-10-21] MEDS ORDERED: VITA2000 PO (11:40)
[2016-10-23] MEDS ORDERED: CEPH-460 PO (04:00)
[2016-11-08] MEDS ORDERED: GENT0.3S2 LEFT EYE (15:50)
[2016-11-24] MEDS ORDERED: CYAN1000P IM (08:34)
[2016-12-24] MEDS ORDERED: ENSULIQ8 PO (08:53)
[2016-12-24] MEDS ORDERED: DULC10SU3 RECTAL (08:53)
[2016-12-24] MEDS ORDERED: TYLE325T PO (08:53)
[2016-12-24] MEDS ORDERED: ALPR.25 PO (08:53)
[2016-12-24] MEDS ORDERED: MEST60TA PO (08:53)
[2016-12-24] MEDS ORDERED: MILKSUS PO (08:53)
[2016-12-24] MEDS ORDERED: OCUVTAB4 PO (08:53)
[2017-02-14] MEDS ORDERED: DOCU100C PO (11:05)
[2017-02-22] MEDS ORDERED: ALPR.25 PO (12:50)
== END 2016-10-08 13:45 | disposition home or self-care (01) ==
LOC: HROP 13:01 → HRIP 13:02 → HROP 13:45
PROVIDERS: ATTEND Internal Medicine Hematology & Oncology
DX: Z48.01 Encounter for change or removal of surgical wound dressing (principal); G70.00 Myasthenia gravis without (acute) exacerbation

== ENCOUNTER 2016-10-12 20:26 | Emergency (ER) | payer MEDICARE ==
[~2016-10-12] VITALS: Ht 182.9 cm; Wt 75.0 kg
[~2016-10-12 20:26] MED LIST changes: +TRAM50TA PO
[2016-10-12 21:35] VITALS: BP 185/84; PULSE 74; RESP 18; TEMP 97.7; O2SAT 99
[2016-10-12] MEDS ORDERED: TETANUS/DIPHTHERIA TOXOID ADULT 0.5 ML VIAL IM ONE (21:45)
--- NOTE | 2016-10-12 22:26 | RADRPT ---
EXAM DATE/TIME: 10/12/2016 22:00 [facility] COMPARISON: No previous studies available for comparison. INDICATIONS : Left humerus pain post fall today. Patient states he fell on 10/06/16 and fracured his humerus. MEDICAL HISTORY : left humerus fracture. SURGICAL HISTORY : None. ENCOUNTER: Initial ACUITY: 1 day PAIN SCORE: 9/10 LOCATION: Left humerus. FINDINGS: There is fracture of left proximal humerus at the surgical neck. The glenohumeral joint and elbow marco nts are normally aligned. CONCLUSION: Proximal left humeral fracture. Jose David Jacobo MD on October 12, 2016 at 22:24 Board Certified Radiologist. This report was verified electronically.
--- NOTE | 2016-10-12 22:26 | RADRPT ---
EXAM DATE/TIME: 10/12/2016 22:01 [facility] COMPARISON: No previous studies available for comparison. INDICATIONS : Left shoulder pain post fall today. MEDICAL HISTORY : left humerus fracture. SURGICAL HISTORY : None. ENCOUNTER: Initial ACUITY: 1 day PAIN SCORE: 9/10 LOCATION: Left shoulder. FINDINGS: Two view examination of the left shoulder demonstrates fracturing of the surgical neck of the proxima l left humerus. The glenohumeral joint is normally aligned. There is hypertrophic change of the acrom ion. CONCLUSION: Acute proximal left humeral fracture. Jose David Jacobo MD on October 12, 2016 at 22:24 Board Certified Radiologist. This report was verified electronically.
--- NOTE | 2016-10-12 22:37 | RADRPT ---
EXAM DATE/TIME: 10/12/2016 22:13 [facility] COMPARISON: MRI BRAIN W/O CONTRAST, October 01, 2016, 15:05. CT BRAIN W/O CONTRAST, Sep, 8:48. INDICATIONS : Trauma. Fall. RADIATION DOSE: 41.38 CTDIvol (mGy) MEDICAL HISTORY : Carcinoma, prostate. Carcinoma, colon. Renal calculi. Subdural SURGICAL HISTORY : Colon resection. ENCOUNTER: Initial ACUITY: 1 day PAIN SCALE: 6/10 LOCATION: Cranial TECHNIQUE: Multiple contiguous axial images were obtained of the head. Using automated exposure control and adjustment of the mA and/or kV according to patient size, radiation dose was kept as low as reasonably achievable to obtain optimal diagnostic quality images. FINDINGS: There continue to be subacute to chronic subdural collections over the convexit ies bilaterally measuring 6 to 7 mm in thickness. There is mild 3 mm of left to right midline shift seen. The basal cisterns are open. The cortical sulci are open. No acute areas of hemorrhage, mass effect or acute infarction are seen. CONCLUSION: Persistent unchanged subdural collections over the convexities bilaterally measuring up to 7 mm in thickness. There is some minimal 3 mm of left to right midline shift. These findings are all stable. A new or acute abnormality is not seen. Jose David Jacobo MD on October 12, 2016 at 22:25 Board Certified Radiologist. This report was verified electronically.
--- NOTE | 2016-10-12 22:47 | PD ---
Physical Exam Date Seen by Provider: Oct 12, 2016 Narrative Peripheral history of physical examination please see previous provider's note. I was asked to repair laceration to left eyebrow. Data Data Last Documented VS Vital Signs Date Time Temp Pulse Resp B/P Pulse Ox O2 Delivery O2 Flow Rate FiO2 10/12/16 21:35 97.7 74 18 185/84 99 Orders Humerus (Min 2vws) (10/12/16 21:39) Tetanus/Diphtheria Tox Adult (Tetanus/Di (10/12/16 21:45) Ct Brain W/O Iv Contrast(Rout) (10/12/16 21:39) Shoulder, Limited(2vws) (10/12/16 21:39) Chest, Single Ap (10/12/16 22:24) Ct Shoulder W/O Contrast (10/12/16 22:43) MDM Medical Record Reviewed: Yes Supervised Visit with TEA: Yes Procedures Procedure Narrative LACERATION LOCATION: Left eyebrow LENGTH: 1 1/2 cm NUMBER OF STITCHES/FIOR: 6 stitches REPAIR: The area of the laceration was prepped with Betadine and sterilely draped. The laceration was infiltrated with 1% lidocaine with epi. The wound was copiously irrigated and explored without evidence of foreign body, tendon injury or neurovascular injury. The wound was closed using 4-0 Prolene. This was a 1 layer repair. A sterile dressing was applied. The patient was advised to keep the dressing clean and dry. Patient tolerated the procedure well. Oneida Hackett Oct 12, 2016 22:47
--- NOTE | 2016-10-12 22:50 | RADRPT ---
EXAM DATE/TIME: 10/12/2016 22:34 [facility] COMPARISON: CHEST SINGLE AP, September 20, 2016, 3:04. INDICATIONS : Left sided chest pain after fall. MEDICAL HISTORY : Carcinoma, colon. Myasthenia gravis SURGICAL HISTORY : None. ENCOUNTER: Initial ACUITY: 1 day PAIN SCORE: 5/10 LOCATION: Left chest FINDINGS: The heart size is normal. The aorta is appears widened. The lungs are grossly clear. No effusion is seen. Clips are seen in the right upper quadrant. There is a fracture at the proximal left humerus. CONCLUSION: 1. Widening of the superior mediastinum likely from an enlarged aorta. Other causes including a thym tonja given the patient's history of myasthenia gravis cannot be excluded. 2. Acute fracture at the proxima left humerus. Jose David Jacobo MD on October 12, 2016 at 22:46 Board Certified Radiologist. This report was verified electronically.
--- NOTE | 2016-10-12 23:00 | RADRPT ---
EXAM DATE/TIME: 10/12/2016 22:13 [facility] COMPARISON: No previous studies available for comparison. INDICATIONS : Evaluate fracture. RADIATION DOSE: 30.17 CTDIvol (mGy) MEDICAL HISTORY : Carcinoma, colon. Carcinoma, prostate. Renal calculi. SURGICAL HISTORY : Colon resection. ENCOUNTER: Initial ACUITY: 1 day PAIN SCALE: 10/10 LOCATION: Left shoulder TECHNIQUE: Volumetric scanning of the shoulder was performed. Using automated exposure control a nd adjustment of the mA and/or kV according to patient size, radiation dose was kept as low as reason ably achievable to obtain optimal diagnostic quality images. FINDINGS: There is fracturing of the surgical neck of the left proximal humerus. The humeral sha ft is mildly medially displaced by approximately 6 mm. There is some fracturing involving the posteri or lateral aspect of the greater tubercle. Significant displacement in this region is not seen. The glenohumeral joint is normally aligned. There is some hypertrophic change seen at the periphery of the glenoid. There is some mild spurring at the undersurface of the distal clavicle. The acromioclav icular joint is normally aligned. CONCLUSION: Left proximal humeral fracture at the surgical neck. There is also some fracturing i nvolving the posterior lateral aspect of the greater tubercle. Jose David Jacobo MD on October 12, 2016 at 22:50 Board Certified Radiologist. This report was verified electronically.
--- NOTE | 2016-10-12 23:32 | PD ---
HPI Chief Complaint: Fall Time Seen by Provider: 21:39 Travel History International Travel<30 days: No Contact w/Intl Traveler<30days: No Traveled to known affect area: No History of Present Illness HPI Patient is a 6 years old. He was recently admitted following the myasthenia gravis exacerbation. He was discharged and had follow-up imaging at [facility][1]. The patient stumbled upon a curb stop in the parking lot and broke his left humerus just inferior to the humeral head. He saw Dr. Abdullahi who said that surgery was not required due to the alignment of the fracture. Today the patient slipped on water in his house and landed on the left arm. He reports constant pain since then. No numbness tingling. He also struck his temporal scalp causing a laceration and some bleeding. He is concerned that he may have been displaced the humerus in this second fall. PFSH Past Medical History Anemia: Yes Arthritis: Yes Asthma: No Autoimmune Disease: Yes (MYASTHENIA GRAVIS) Blood Disorders: No Anxiety: No Depression: No Heart Rhythm Problems: No Cancer: Yes (COLON, PROSTATE AND LIVER) Cardiovascular Problems: No High Cholesterol: Yes Chemotherapy: Yes Chest Pain: No Congestive Heart Failure: No COPD: No Diabetes: No Diminished Hearing: Yes (BILATERAL HEARING AIDS) Endocrine: No Gastrointestinal Disorders: Yes (COLON/LIVER CA) GERD: No Genitourinary: Yes (PROSTATE CA) Hiatal Hernia: No Hypertension: No Immune Disorder: Yes (MYASTHENIA GRAVIS) Implanted Vascular Access Dvce: No Kidney Stones: Yes (1983) Musculoskeletal: Yes Neurologic: No Psychiatric: No Reproductive: No Respiratory: No Radiation Therapy: Yes Renal Failure: No Sleep Apnea: No Thyroid Disease: No Ulcer: No Influenza Vaccination: Yes Past Surgical History Abdominal Surgery: Yes (COLON RESECTION DUE TO COLON CAN 1987 AND 2007) Eye Surgery: Yes (L EYE SURGERY on retina) Pacemaker: No Thoracic Surgery: Yes (LIVER RESECTION 2000) Tonsillectomy: Yes Other Surgery: Yes (HERNIA REPAIR JUN 2001) Social History Alcohol Use: No Tobacco Use: No Substance Use: No Allergies-Medications (Allergen,Severity, Reaction): Coded Allergies: Sulfa (Verified Allergy, Severe, Flushing, 10/12/16) Ativan (Verified Allergy, Intermediate, Psychosis, 10/12/16) Compazine (Verified Allergy, Unknown, JITTERY, 10/12/16) Reported Meds & Prescriptions Reported Meds & Active Scripts Active Prednisone 20 Mg Tab 60 Mg PO DAILY Xanax (Alprazolam) 0.25 Mg Tab 0.25 Mg PO DAILY PRN Reported Tramadol (Tramadol HCl) 50 Mg Tab 50 Mg PO Q6H PRN Lupron Depot Inj Kit (Leuprolide (6 Month) Inj Kit) 45 Mg Kit 45 Mg IM DIRECTED [vitamin b12] 1,000 Mg IM DIRECTED Colace (Docusate Sodium) 100 Mg Cap 100 Mg PO BID Imuran (Azathioprine) 50 Mg Tab 25 Mg PO BID Hazardous agent: use appropriate precautions for handling and disposal. Mestinon (Pyridostigmine [place]) 60 Mg Tab 120 Mg PO TID Review of Systems Except as stated in HPI: all other systems reviewed are Neg Physical Exam Narrative GENERAL: 6-year-old male pleasant no acute distress SKIN: Warm and dry. Approximate 3 cm laceration along the region of the lateral orbit on the left side. HEAD: Atraumatic. Normocephalic. EYES: Pupils equal and round. No scleral icterus. No injection or drainage. ENT: No nasal bleeding or discharge. Mucous membranes pink and moist. NECK: Trachea midline. No JVD. CARDIOVASCULAR: Regular rate and rhythm. No murmur appreciated. RESPIRATORY: No accessory muscle use. Clear to auscultation. Breath sounds equal bilaterally. GASTROINTESTINAL: Abdomen soft, non-tender, nondistended. Hepatic and splenic margins not palpable. MUSCULOSKELETAL: No obvious deformities. No clubbing. No cyanosis. No edema. Left arm is in a sling. Dorsiflexion and volar flexion preserved at the left wrist. Passive range of motion is painful. 2+ radial pulse bilaterally. No gross deformity at the region of the humeral head on the left side. NEUROLOGICAL: Awake and alert. No obvious cranial nerve deficits. Motor grossly within normal limits. Normal speech. PSYCHIATRIC: Appropriate mood and affect; insight and judgment normal. Data Data Last Documented VS Vital Signs Date Time Temp Pulse Resp B/P Pulse Ox O2 Delivery O2 Flow Rate FiO2 10/13/16 00:33 98 18 126/75 97 10/12/16 21:35 97.7 Orders Humerus (Min 2vws) (10/12/16 21:39) Tetanus/Diphtheria Tox Adult (Tetanus/Di (10/12/16 21:45) Ct Brain W/O Iv Contrast(Rout) (10/12/16 21:39) Shoulder, Limited(2vws) (10/12/16 21:39) Chest, Single Ap (10/12/16 22:24) Ct Shoulder W/O Contrast (10/12/16 22:43) MDM Medical Decision Making Medical Screen Exam Complete: Yes Emergency Medical Condition: Yes Medical Record Reviewed: Yes Differential Diagnosis Humerus fracture, intracranial hemorrhage, laceration Narrative Course Dr. Cates was called twice over the course of an hour with no return phone call. Based on review of the humerus fracture there is about a 2 mm displacement. There is no other prior available for comparison. Patient is quite agreeable to plan includes discharge home and outpatient follow-up with Dr. Abdullahi. Laceration repaired by the PA. Patient received tetanus. He is known to have subdural hematomas bilaterally. Last [address] Ext[address] 10/12/162242 Signed Impressions: Service Date/Time: Wednesday, October 12, 2016 22:13 - CONCLUSION: Left proximal humeral fracture at the surgical neck. There is also some fracturing involving the posterior lateral aspect of the greater tubercle. Jose David Jacobo MD Chest X-Ray 10/12/162223 Signed Impressions: Service Date/Time: Wednesday, October 12, 2016 22:34 - CONCLUSION: 1. Widening of the superior mediastinum likely from an enlarged aorta. Other causes including a thymoma given the patient's history of myasthenia gravis cannot be excluded. 2. Acute fracture at the proxima left humerus. Jose David Jacobo MD Shoulder X-Ray 10/12/162138 Signed Impressions: Service Date/Time: Wednesday, October 12, 2016 22:01 - CONCLUSION: Acute proximal left humeral fracture. Jose David Jacobo MD Humerus X-Ray 10/12/162138 Signed Impressions: Service Date/Time: Wednesday, October 12, 2016 22:00 - CONCLUSION: Proximal left humeral fracture. Jose David Jacobo MD Head CT 10/12/162138 Signed Impressions: Service Date/Time: Wednesday, October 12, 2016 22:13 - CONCLUSION: Persistent unchanged subdural collections over the convexities bilaterally measuring up to 7 mm in thickness. There is some minimal 3 mm of left to right midline shift. These findings are all stable. A new or acute abnormality is not seen. Jose David Jacobo MD Diagnosis Primary Impression: Fall Qualified Code: W19.XXXA - Fall, initial encounter Additional Impression: Closed left humeral fracture Qualified Code: S42.212S - Closed displaced fracture of surgical neck of left humerus, unspecified fracture morphology, sequela Referrals: Juan F Cates MD 2 days Additional Instructions: You have a choice when it comes to health care, and we are glad that you chose [facility]. Hopefully, we have met your expectations on today's visit. You are welcome to return to [facility] at any time, as we are committed to meeting the health care needs of our community. Med/Other Pt SpecificInfo: No Change to Meds Disposition: 01 DISCHARGE HOME Condition: Stable Ponce Young MD Oct 12, 2016 23:32
[2016-10-13 00:33] VITALS: BP 126/75
[2016-10-18] MEDS ORDERED: ALPR.25 PO (14:16)
[2016-10-18] MEDS ORDERED: TRAM50TA PO (14:16)
[2016-10-21] MEDS ORDERED: TUMS500C CHEW (11:40)
[2016-10-21] MEDS ORDERED: RANI150T PO (11:40)
[2016-10-21] MEDS ORDERED: VITA2000 PO (11:40)
[2016-10-23] MEDS ORDERED: CEPH-460 PO (04:00)
[2016-11-08] MEDS ORDERED: GENT0.3S2 LEFT EYE (15:50)
[2016-11-24] MEDS ORDERED: CYAN1000P IM (08:34)
[2016-12-24] MEDS ORDERED: MILKSUS PO (08:53)
[2016-12-24] MEDS ORDERED: ALPR.25 PO (08:53)
[2016-12-24] MEDS ORDERED: MEST60TA PO (08:53)
[2016-12-24] MEDS ORDERED: DULC10SU3 RECTAL (08:53)
[2016-12-24] MEDS ORDERED: ENSULIQ8 PO (08:53)
[2016-12-24] MEDS ORDERED: OCUVTAB4 PO (08:53)
[2016-12-24] MEDS ORDERED: TYLE325T PO (08:53)
[2017-02-14] MEDS ORDERED: DOCU100C PO (11:05)
[2017-02-22] MEDS ORDERED: ALPR.25 PO (12:50)
== END 2016-10-13 01:04 | disposition home or self-care (01) ==
LOC: NEPC 20:26
DX: S01.81XA Laceration without foreign body of other part of head, initial encounter (principal); S42.212D Unspecified displaced fracture of surgical neck of left humerus, subsequent encounter for fracture with routine healing; G70.00 Myasthenia gravis without (acute) exacerbation; E78.00 Pure hypercholesterolemia, unspecified; Z23 Encounter for immunization; W18.09XA Striking against other object with subsequent fall, initial encounter; Y93.01 Activity, walking, marching and hiking; Y92.481 Parking lot as the place of occurrence of the external cause; Y99.8 Other external cause status
CPT/HCPCS: 12011; 70450; 71010; 73030; 73060; 73200; 90471; 90714

== ENCOUNTER 2016-10-14 04:36 | Emergency (ER) | payer MEDICARE ==
[~2016-10-14] VITALS: Ht 177.8 cm; Wt 75.0 kg
[2016-10-14 05:10] VITALS: BP 112/55; PULSE 100; RESP 16; TEMP 98; O2SAT 99
--- NOTE | 2016-10-14 07:38 | PD ---
HPI Chief Complaint: Pain: Acute or Chronic Time Seen by Provider: 06:45 Travel History International Travel<30 days: No Contact w/Intl Traveler<30days: No Traveled to known affect area: No History of Present Illness HPI 86yo M with myasthenia gravis, left humerus fracture s/p recent fall return to the ED today because his cannot take care of him anymore. Denies any more falls or new complaint. Pt states his left arm pain is only 1-2 out of 10. Denies any chest pain, sob, n/v, abdominal pain, new weakness or numbness. PFSH Past Medical History Anemia: Yes Arthritis: Yes Asthma: No Autoimmune Disease: Yes (MYASTHENIA GRAVIS) Blood Disorders: No Anxiety: No Depression: No Heart Rhythm Problems: No Cancer: Yes (COLON, PROSTATE AND LIVER) Cardiovascular Problems: No High Cholesterol: Yes Chemotherapy: Yes Chest Pain: No Congestive Heart Failure: No COPD: No Diabetes: No Diminished Hearing: Yes (BILATERAL HEARING AIDS) Endocrine: No Gastrointestinal Disorders: Yes (COLON/LIVER CA) GERD: No Genitourinary: Yes (PROSTATE CA) Hiatal Hernia: No Hypertension: No Immune Disorder: Yes (MYASTHENIA GRAVIS) Implanted Vascular Access Dvce: No Kidney Stones: Yes (1983) Musculoskeletal: Yes Neurologic: No Psychiatric: No Reproductive: No Respiratory: No Immunizations Current: Yes Radiation Therapy: Yes Renal Failure: No Sleep Apnea: No Thyroid Disease: No Ulcer: No Past Surgical History Abdominal Surgery: Yes (COLON RESECTION DUE TO COLON CAN 1987 AND 2007) Eye Surgery: Yes (L EYE SURGERY on retina) Pacemaker: No Thoracic Surgery: Yes (LIVER RESECTION 2000) Tonsillectomy: Yes Other Surgery: Yes (HERNIA REPAIR JUN 2001) Social History Alcohol Use: No Tobacco Use: No Substance Use: No Allergies-Medications (Allergen,Severity, Reaction): Coded Allergies: Sulfa (Verified Allergy, Severe, Flushing, 10/12/16) Ativan (Verified Allergy, Intermediate, Psychosis, 10/12/16) Compazine (Verified Allergy, Unknown, JITTERY, 10/12/16) Reported Meds & Prescriptions Reported Meds & Active Scripts Active Prednisone 20 Mg Tab 60 Mg PO DAILY Xanax (Alprazolam) 0.25 Mg Tab 0.25 Mg PO DAILY PRN Reported Tramadol (Tramadol HCl) 50 Mg Tab 50 Mg PO Q6H PRN Lupron Depot Inj Kit (Leuprolide (6 Month) Inj Kit) 45 Mg Kit 45 Mg IM DIRECTED [vitamin b12] 1,000 Mg IM DIRECTED Colace (Docusate Sodium) 100 Mg Cap 100 Mg PO BID Imuran (Azathioprine) 50 Mg Tab 25 Mg PO BID Hazardous agent: use appropriate precautions for handling and disposal. Mestinon (Pyridostigmine [place]) 60 Mg Tab 120 Mg PO TID Review of Systems Except as stated in HPI: all other systems reviewed are Neg Physical Exam Narrative GENERAL: 86yo M SKIN: Warm and dry. HEAD: Atraumatic. Normocephalic. EYES: Pupils equal and round. No scleral icterus. No injection or drainage. ENT: No nasal bleeding or discharge. Mucous membranes pink and moist. NECK: Trachea midline. No JVD. CARDIOVASCULAR: Regular rate and rhythm. No murmur appreciated. RESPIRATORY: No accessory muscle use. Clear to auscultation. Breath sounds equal bilaterally. GASTROINTESTINAL: Abdomen soft, non-tender, nondistended. Hepatic and splenic margins not palpable. MUSCULOSKELETAL: LUE: In sling. Radial pulse intact. Sensation intact. No obvious deformities. No clubbing. No cyanosis. No edema. NEUROLOGICAL: Awake and alert. No obvious cranial nerve deficits. Motor grossly within normal limits. Normal speech. PSYCHIATRIC: Appropriate mood and affect; insight and judgment normal. Data Data Last Documented VS Vital Signs Date Time Temp Pulse Resp B/P Pulse Ox O2 Delivery O2 Flow Rate FiO2 10/14/16 10:37 89 16 108/56 99 Room Air 10/14/16 05:10 98.0 2 MDM Medical Decision Making Medical Screen Exam Complete: Yes Emergency Medical Condition: Yes Differential Diagnosis Social issue Narrative Course 86yo M who lives in [facility] is here because his is unable to take care of him. States he lives in the independent part of the [facility]. He states Dr. Doherty is also going to coordinate home health for him. Denies any new complaints. Pt is here because he and his cannot take care of him. inpatient care manager rn called. Sign out to next team to follow up with case management. Theodora Ravi DO Oct 14, 2016 07:38
--- NOTE | 2016-10-14 07:48 | PD ---
Physical Exam Date Seen by Provider: Oct 14, 2016 Time Seen by Provider: 08:36 Narrative 86-year-old male came to the emergency room with his after sustaining a fall couple days ago. He was seen in the emergency room couple days ago after the fall and was diagnosed with humerus fracture. However his brought him back because she is unable to take care of him at home. Patient was seen by the previous ER physician. Please review her notes. She was trying to contact ED case management regarding the patient in order to figure out if the patient could be placed. She was unable to get hold of ED case management and hence signed the case over to me. I have put a call out and left a message for ED case management as well as spoke with the charge nurse to see if an appropriate and safe placement can be arranged. Awaiting for that. Data Data Last Documented VS Vital Signs Date Time Temp Pulse Resp B/P Pulse Ox O2 Delivery O2 Flow Rate FiO2 10/14/16 05:10 98.0 100 16 112/55 99 Room Air 2 MDM Supervised Visit with TEA: No Narrative Course 9:06 AM the casework manager was in to speak with the patient and patient was decided to do home health care. I will fill in the face to face and discharge the patient after that. Diagnosis Primary Impression: Closed left humeral fracture Qualified Code: S42.332D - Closed displaced oblique fracture of shaft of left humerus with routine healing, subsequent encounter Additional Impressions: Generalized weakness Pain Referrals: Primary Care Physician 2 days Additional Instruction: Please return to the ER if the condition worsens or any other new concerns. A home healthcare request has been filled out for you. Our casework manager will coordinate the care. Med/Other Pt SpecificInfo: No Change to Meds Disposition: 01 DISCHARGE HOME Condition: Stable Nevaeh Leal MD Oct 14, 2016 07:48
--- NOTE | 2016-10-14 09:12 | HHI.FF ---
Face to Face Verification Diagnosis: (1) Generalized weakness (2) Closed left humeral fracture (3) Pain Physical Therapy Order: Evaluate and Treat Occupational Therapy Order: Evaluate and Treat Home Health Nursing Order: Medical education Signs/symptoms of disease process Medication education-adverse effect Nursing assessment with vital signs I have seen patient Naren Peters on 10/14/16. My clinical findings support the need for the requested home health care services because: Advanced age, left humeral shaft fracture, intractable pain, generalized weakness Ltd mobility - disease progression Limited ability to care for self High risk of falls I certify that my clinical findings support that this patient is homebound because: Advanced age, left humeral shaft fracture, intractable pain, generalized weakness Unsteady gait/balance Unsafe to leave home unassisted Unable to use public transportation Nevaeh Leal MD Oct 14, 2016 09:12
[2016-10-14 10:37] VITALS: BP 108/56; PULSE 89; RESP 16; O2SAT 99
[2016-10-18] MEDS ORDERED: ALPR.25 PO (14:16)
[2016-10-18] MEDS ORDERED: TRAM50TA PO (14:16)
[2016-10-21] MEDS ORDERED: VITA2000 PO (11:40)
[2016-10-21] MEDS ORDERED: TUMS500C CHEW (11:40)
[2016-10-21] MEDS ORDERED: RANI150T PO (11:40)
[2016-10-23] MEDS ORDERED: CEPH-460 PO (04:00)
[2016-11-08] MEDS ORDERED: GENT0.3S2 LEFT EYE (15:50)
[2016-11-24] MEDS ORDERED: CYAN1000P IM (08:34)
[2016-12-24] MEDS ORDERED: ENSULIQ8 PO (08:53)
[2016-12-24] MEDS ORDERED: OCUVTAB4 PO (08:53)
[2016-12-24] MEDS ORDERED: DULC10SU3 RECTAL (08:53)
[2016-12-24] MEDS ORDERED: MEST60TA PO (08:53)
[2016-12-24] MEDS ORDERED: ALPR.25 PO (08:53)
[2016-12-24] MEDS ORDERED: MILKSUS PO (08:53)
[2016-12-24] MEDS ORDERED: TYLE325T PO (08:53)
[2017-02-14] MEDS ORDERED: DOCU100C PO (11:05)
[2017-02-22] MEDS ORDERED: ALPR.25 PO (12:50)
== END 2016-10-14 14:54 | disposition home or self-care (01) ==
LOC: NEPC 04:36
DX: S42.332D Displaced oblique fracture of shaft of humerus, left arm, subsequent encounter for fracture with routine healing (principal); R53.1 Weakness; G70.00 Myasthenia gravis without (acute) exacerbation; Z85.46 Personal history of malignant neoplasm of prostate; X58.XXXD Exposure to other specified factors, subsequent encounter

== ENCOUNTER 2016-12-29 06:40 | Inpatient (IN) | payer MEDICARE ==
[~2016-12-29] VITALS: Ht 180.3 cm; Wt 70.0 kg
[~2016-12-29 06:40] MED LIST changes: +CYAN1000P IM; +DULC10SU3 RECTAL; +ENSULIQ8 PO; -IMUR50TA PO; -LUPR45IN IM; +MILKSUS PO; +OCUVTAB4 PO; -PRED20 PO; +RANI150T PO; -TRAM50TA PO; +TUMS500C CHEW; +TYLE325T PO; +VITA2000 PO; -vitamin b12 IM
[2016-12-29 06:43] VITALS: BP 167/71; PULSE 73; RESP 16; TEMP 97.8; O2SAT 98
[2016-12-29] MEDS ORDERED: SODIUM CHLOR 0.9% 1000 ML INJ 1,000 ML IV SCH (06:55)
--- NOTE | 2016-12-29 06:59 | PD ---
HPI Chief Complaint: Abdominal Pain Time Seen by Provider: 06:50 Travel History International Travel<30 days: No Contact w/Intl Traveler<30days: No Traveled to known affect area: No History of Present Illness HPI The patient is a 86-year-old male who presents to the emergency department for abdominal pain. The patient has a history of myasthenia gravis and recent left shoulder fracture. The patient was at [facility] for approximately 3 months, was discharged home yesterday feeling well. The patient ate dinner last night when he developed epigastric discomfort with dry heaves. The patient's last bowel movement was yesterday, normal per the patient 's report. He denies any diarrhea. The patient does have a history of previous colon cancer with colon resection 2 and partial liver resection, performed by Dr. Ku in 2000. The patient's primary physician is Dr. Ninoska blue. The patient denies any chest pain, shortness breath, fever, or dysuria. However, he states when he went to use the bathroom this morning, he had difficulty controlling his urine. Symptoms are moderate, there are no alleviating or exacerbating factors. PFSH Past Medical History Anemia: Yes Arthritis: Yes Asthma: No Autoimmune Disease: Yes (MYASTHENIA GRAVIS) Blood Disorders: No Anxiety: No Depression: No Heart Rhythm Problems: No Cancer: Yes (COLON, PROSTATE AND LIVER) Cardiovascular Problems: No High Cholesterol: Yes Chemotherapy: Yes Chest Pain: No Congestive Heart Failure: No COPD: No Diabetes: No Diminished Hearing: Yes (BILATERAL HEARING AIDS) Endocrine: No Gastrointestinal Disorders: Yes (COLON/LIVER CA) GERD: No Genitourinary: Yes (PROSTATE CA) Hiatal Hernia: No Hypertension: No Immune Disorder: Yes (MYASTHENIA GRAVIS) Implanted Vascular Access Dvce: No Kidney Stones: Yes (1983) Musculoskeletal: Yes Neurologic: No Psychiatric: No Reproductive: No Respiratory: No Immunizations Current: Yes Radiation Therapy: Yes Renal Failure: No Sleep Apnea: No Thyroid Disease: No Ulcer: No Tetanus Vaccination: < 5 Years Influenza Vaccination: Yes Past Surgical History Abdominal Surgery: Yes (COLON RESECTION DUE TO COLON CAN 1987 AND 2007) Eye Surgery: Yes (L EYE SURGERY on retina) Pacemaker: No Thoracic Surgery: Yes (LIVER RESECTION 2000) Tonsillectomy: Yes Other Surgery: Yes (HERNIA REPAIR JUN 2001) Social History Alcohol Use: No Tobacco Use: No Substance Use: No Allergies-Medications (Allergen,Severity, Reaction): Coded Allergies: Sulfa (Verified Allergy, Severe, Flushing, 12/29/16) Ativan (Verified Allergy, Intermediate, Psychosis, 12/29/16) Compazine (Verified Allergy, Unknown, JITTERY, 12/29/16) Reported Meds & Prescriptions Reported Meds & Active Scripts Active Cipro (Ciprofloxacin HCl) 500 Mg Tab 500 Mg PO BID 7 Days Xanax (Alprazolam) 0.25 Mg Tab 0.25 Mg PO DAILY PRN Reported Tylenol (Acetaminophen) 325 Mg Tab 650 Mg PO Q4H PRN Dulcolax Supp (Bisacodyl) 10 Mg Supp 10 Mg RECTAL HS PRN Preservision Areds (Multiple Vitamins W/ Minerals) 1 Tab 1 Tab PO DAILY Mestinon (Pyridostigmine [place]) 60 Mg Tab 120 Mg PO TID Milk of Magnesia Liq (Magnesium Hydroxide) 400 Mg/5 Ml Susp 30 Ml PO HS PRN Ensure Plus (Nutritional Supplements) 1 Liq Liq 1 Can PO DAILY Cyanocobalamin Inj (Cyanocobalamin) 1,000 Mcg/Ml Inj 1,000 Mcg IM MONTHLY Vitamin D3 (Cholecalciferol) 2,000 Unit Cap 2,000 Units PO DAILY Tums (Calcium Carbonate (Antacid)) 500 Mg Chew 1,000 Mg CHEW BID PRN Ranitidine (Ranitidine HCl) 150 Mg Tab 150 Mg PO DAILY Colace (Docusate Sodium) 100 Mg Cap 100 Mg PO BID Review of Systems Except as stated in HPI: all other systems reviewed are Neg General / Constitutional: No: Fever Cardiovascular: No: Chest Pain or Discomfort Respiratory: No: Shortness of Breath Gastrointestinal: Positive: Nausea, Vomiting, Abdominal Pain, No: Diarrhea, Constipation, Changes in Bowel Habits Genitourinary: Positive: Incontinence, No: Dysuria Musculoskeletal: No: Myalgias, Arthralgias Physical Exam Narrative GENERAL: Awake, alert, pleasant 86-year-old male who appears his stated age and is in no acute respiratory distress. SKIN: Focused skin assessment warm/dry. HEAD: Atraumatic. Normocephalic. EYES: Pupils equal and round. No scleral icterus. No injection or drainage. ENT: No nasal bleeding or discharge. Mucous membranes pink and moist. NECK: Trachea midline. No JVD. CARDIOVASCULAR: Regular rate and rhythm. No murmur appreciated. RESPIRATORY: No accessory muscle use. Clear to auscultation. Breath sounds equal bilaterally. GASTROINTESTINAL: Abdomen soft, mild tenderness epigastrium and right lower quadrant. Well-healed midline incisional scar. MUSCULOSKELETAL: Left upper extremity is in a sling. Positive distal pulses. NEUROLOGICAL: Awake and alert. No obvious cranial nerve deficits. Motor grossly within normal limits. Normal speech. PSYCHIATRIC: Appropriate mood and affect; insight and judgment normal. Data Data Last Documented VS Vital Signs Date Time Temp Pulse Resp B/P Pulse Ox O2 Delivery O2 Flow Rate FiO2 12/29/16 09:46 82 16 153/67 96 Room Air 12/29/16 06:43 97.8 Orders Complete Blood Count With Diff (12/29/16 06:55) Comprehensive Metabolic Panel (12/29/16 06:55) Lipase (12/29/16 06:55) Lactic Acid (12/29/16 06:55) Urinalysis - C+S If Indicated (12/29/16 06:55) Ct Abd/Pel W/O Iv Contrast (12/29/16 06:55) Iv Access Insert/Monitor (12/29/16 06:55) Ecg Monitoring (12/29/16 06:55) Oximetry (12/29/16 06:55) Morphine Inj (Morphine Inj) (12/29/16 07:00) Ondansetron Inj (Zofran Inj) (12/29/16 07:00) Sodium Chlor 0.9% 1000 Ml Inj (Ns 1000 M (12/29/16 06:55) Sodium Chloride 0.9% Flush (Ns Flush) (12/29/16 07:00) Electrocardiogram (12/29/16 06:55) Famotidine Inj (Pepcid Inj) (12/29/16 07:00) Cath For Specimen (12/29/16 07:52) Urine Culture (12/29/16 08:10) Ciprofloxacin 400 Mg Premix (Cipro 400 M (12/29/16 09:00) Admit Order (Ed Use Only) (12/29/16 10:33) Labs Laboratory Tests Test 12/29/16 12/29/16 06:55 08:10 White Blood Count 6.0 TH/MM3 Red Blood Count 3.69 MIL/MM3 Hemoglobin 9.9 GM/DL Hematocrit 30.4 % Mean Corpuscular Volume 82.2 FL Mean Corpuscular Hemoglobin 26.9 PG Mean Corpuscular Hemoglobin 32.7 % Concent Red Cell Distribution Width 16.5 % Platelet Count 165 TH/MM3 Mean Platelet Volume 8.6 FL Neutrophils (%) (Auto) 80.0 % Lymphocytes (%) (Auto) 7.8 % Monocytes (%) (Auto) 10.3 % Eosinophils (%) (Auto) 1.5 % Basophils (%) (Auto) 0.4 % Neutrophils # (Auto) 4.8 TH/MM3 Lymphocytes # (Auto) 0.5 TH/MM3 Monocytes # (Auto) 0.6 TH/MM3 Eosinophils # (Auto) 0.1 TH/MM3 Basophils # (Auto) 0.0 TH/MM3 CBC Comment DIFF FINAL Differential Comment Sodium Level 139 MEQ/L Potassium Level 4.0 MEQ/L Chloride Level 104 MEQ/L Carbon Dioxide Level 30.1 MEQ/L Anion Gap 5 MEQ/L Blood Urea Nitrogen 30 MG/DL Creatinine 1.03 MG/DL Estimat Glomerular Filtration 68 ML/MIN Rate Random Glucose 141 MG/DL Lactic Acid Level 0.8 mmol/L Calcium Level 9.4 MG/DL Total Bilirubin 0.9 MG/DL Aspartate Amino Transf 18 U/L (AST/SGOT) Alanine Aminotransferase 21 U/L (ALT/SGPT) Alkaline Phosphatase 79 U/L Total Protein 7.0 GM/DL Albumin 3.6 GM/DL Lipase 85 U/L Urine Color YELLOW Urine Turbidity CLEAR Urine pH 6.5 Urine Specific [place] 1.013 Urine Protein NEG mg/dL Urine Glucose (UA) NEG mg/dL Urine Ketones NEG mg/dL Urine Occult Blood NEG Urine Nitrite NEG Urine Bilirubin NEG Urine Urobilinogen LESS THAN 2.0 MG/DL Urine Leukocyte Esterase MOD Urine RBC 1 /hpf Urine WBC 11 /hpf Urine WBC Clumps RARE Urine Squamous Epithelial <1 /hpf Cells Urine Bacteria MANY /hpf Urine Mucus FEW /lpf Microscopic Urinalysis Comment CULTURE INDICATED MDM Medical Decision Making Medical Screen Exam Complete: Yes Emergency Medical Condition: Yes Medical Record Reviewed: Yes Interpretation(s) EKG reveals sinus rhythm with PVC. RSR prime consistent with a right bundle- branch block, QRS 134 ms. Laboratory Tests Test 12/29/16 12/29/16 06:55 08:10 White Blood Count 6.0 TH/MM3 Red Blood Count 3.69 MIL/MM3 Hemoglobin 9.9 GM/DL Hematocrit 30.4 % Mean Corpuscular Volume 82.2 FL Mean Corpuscular Hemoglobin 26.9 PG Mean Corpuscular Hemoglobin 32.7 % Concent Red Cell Distribution Width 16.5 % Platelet Count 165 TH/MM3 Mean Platelet Volume 8.6 FL Neutrophils (%) (Auto) 80.0 % Lymphocytes (%) (Auto) 7.8 % Monocytes (%) (Auto) 10.3 % Eosinophils (%) (Auto) 1.5 % Basophils (%) (Auto) 0.4 % Neutrophils # (Auto) 4.8 TH/MM3 Lymphocytes # (Auto) 0.5 TH/MM3 Monocytes # (Auto) 0.6 TH/MM3 Eosinophils # (Auto) 0.1 TH/MM3 Basophils # (Auto) 0.0 TH/MM3 CBC Comment DIFF FINAL Differential Comment Sodium Level 139 MEQ/L Potassium Level 4.0 MEQ/L Chloride Level 104 MEQ/L Carbon Dioxide Level 30.1 MEQ/L Anion Gap 5 MEQ/L Blood Urea Nitrogen 30 MG/DL Creatinine 1.03 MG/DL Estimat Glomerular Filtration 68 ML/MIN Rate Random Glucose 141 MG/DL Lactic Acid Level 0.8 mmol/L Calcium Level 9.4 MG/DL Total Bilirubin 0.9 MG/DL Aspartate Amino Transf 18 U/L (AST/SGOT) Alanine Aminotransferase 21 U/L (ALT/SGPT) Alkaline Phosphatase 79 U/L Total Protein 7.0 GM/DL Albumin 3.6 GM/DL Lipase 85 U/L Urine Color YELLOW Urine Turbidity CLEAR Urine pH 6.5 Urine Specific [place] 1.013 Urine Protein NEG mg/dL Urine Glucose (UA) NEG mg/dL Urine Ketones NEG mg/dL Urine Occult Blood NEG Urine Nitrite NEG Urine Bilirubin NEG Urine Urobilinogen LESS THAN 2.0 MG/DL Urine Leukocyte Esterase MOD Urine RBC 1 /hpf Urine WBC 11 /hpf Urine WBC Clumps RARE Urine Squamous Epithelial <1 /hpf Cells Urine Bacteria MANY /hpf Urine Mucus FEW /lpf Microscopic Urinalysis Comment CULTURE INDICATED CT the abdomen and pelvis reveals fluid-filled mildly dilated loops of small bowel suggesting small bowel ileus or partial small bowel obstruction in the region of the distal jejunum or proximal to mid ileum. Ventral abdominal wall hernia to the right of midline in the upper abdomen which contains only fat. Left inguinal hernia containing only fat. Enlarged prostate. Minimal ascites within the pelvis. Degenerative changes and scoliosis of the thoracolumbar spine. Small right pleural effusion. Differential Diagnosis Differential diagnosis includes gastritis, pancreatitis, peptic ulcer disease, biliary colic, cholecystitis, choledocholithiasis, partial small bowel obstruction, diverticulitis, atypical appendicitis, UTI. Narrative Course IV was established, labs are drawn and sent, and the patient was placed on cardiac telemetry monitoring and continuous pulse oximetry monitoring. EKG was ordered and interpreted. The patient was administered morphine, Zofran, Pepcid , and IV fluids. CT of the abdomen and pelvis was ordered. White count is normal. Lactic acid is normal at 0.8. BUN is slightly elevated at 30, creatinine is 1.1, otherwise labs are unremarkable. The patient fell asleep prior to the administration of morphine, therefore, morphine was withheld by nursing staff. The patient does state he took a Xanax prior to arrival. The patient's UA was positive, therefore, patient was administered Cipro intravenously. CT of the abdomen and pelvis reveals fluid-filled mildly dilated loops of small bowel suggesting small bowel ileus or partial small bowel obstruction in the region of the distal jejunum or proximal to mid ileum. Therefore, patient will be 23 hour observation for IV fluids and evaluation of nausea/vomiting/abdominal pain. Once the patient is able to tolerate oral intake and is having normal bowel movements, patient will be able to be discharged home. The patient's primary physician is Dr. Ramsey, therefore, the residents were paged for admission. Physician Communication Physician Communication I discussed the patient with the residents who agreed with admission to Dr. Hutchins. Diagnosis Primary Impression: Partial small bowel obstruction Additional Impression: UTI (urinary tract infection) Qualified Code: N39.0 - Urinary tract infection without hematuria, site unspecified Admitting Information Admitting Physician Requests: Admit Patient Instructions: General Instructions Additional Instructions: Cipro twice a day as directed. Follow-up with your primary physician. Return if symptoms worsen or progress. Scripts Ciprofloxacin (Cipro)500 Mg [id number] Mg PO BID 7 Days Ref 0 Prov:Connor Chaudhary MD 12/29/16 Condition: Stable Connor Chaudhary MD December 29, 2016 06:59
[2016-12-29] MEDS ORDERED: SODIUM CHLORIDE 0.9% FLUSH 10 ML FLUSH IV FLUSH PRN ×2 (07:00→10:45)
[2016-12-29] MEDS ORDERED: MORPHINE SULFATE 4 MG/ML INJ IV PUSH ONE (07:00)
[2016-12-29] MEDS ORDERED: FAMOTIDINE 20 MG/2 ML VIAL IV PUSH ONE (07:00)
[2016-12-29] MEDS ORDERED: ONDANSETRON HCL 4 MG/2 ML VIAL IVP ONE (07:00)
[2016-12-29 07:36] LABS: AUTOMATED NEUTROPHIL # 4.8 TH/MM3 (1.8-7.7); BASOPHIL % 0.4 % (0.0-2.0); EOSINOPHIL # 0.1 TH/MM3 (0-0.4); EOSINOPHIL % 1.5 % (0.0-4.0); HEMATOCRIT 30.4 % (39.0-51.0); HEMO FLAGS DIFF FINAL; LYMPH % 7.8 % (9.0-44.0); LYMPHOCYTE # 0.5 TH/MM3 (1.0-4.8); MEAN CELL VOLUME 82.2 FL (80.0-100.0); MEAN CORPUSCULAR HEMOGLOBIN 26.9 PG (27.0-34.0); MEAN CORPUSCULAR HGB CONC 32.7 % (32.0-36.0); MONO % 10.3 % (0.0-8.0); PLATELET COUNT 165 TH/MM3 (150-450); RED BLOOD COUNT 3.69 MIL/MM3 (4.50-5.90); RED CELL DISTRIBUTION WIDTH 16.5 % (11.6-17.2)
[2016-12-29 07:37] VITALS: BP 167/71; PULSE 68; RESP 16; O2SAT 94
[2016-12-29 07:48] LABS: ALT (GPT) 21 U/L (12-78); ANION GAP 5 MEQ/L (5-15); AST (GOT) 18 U/L (15-37); BICARBONATE 30.1 MEQ/L (21.0-32.0); BLOOD UREA NITROGEN 30 MG/DL (7-18); CHLORIDE 104 MEQ/L (98-107); GLOMERULAR FILTRATION RATE 68 ML/MIN (>89); SODIUM (NA) 139 MEQ/L (136-145)
[2016-12-29 07:51] LABS: ALKALINE PHOSPHATASE 79 U/L (45-117); TOTAL BILIRUBIN ADULT 0.9 MG/DL (0.2-1.0)
[2016-12-29 08:37] LABS: BACTERIA, URINE MANY /hpf; BLOOD, URINE NEG (NEG); COMMENT (UR) CULTURE INDICATED; CULTURE IF INDICATED CULTURE INDICATED; GLUCOSE,URINE NEG (NEG); KETONE, URINE NEG (NEG); MUCUS URINE FEW /lpf (OCC); NITRITE,URINE NEG (NEG); PH, URINE 6.5 (5.0-8.5); SQUAMOUS EPITHELIAL CELL URINE <1 /hpf (0-5); URINE COLOR YELLOW (YELLW/STRAW)
[2016-12-29] MEDS ORDERED: CIPROFLOXACIN 400 MG PREMIX 200 ML IV ONE (09:00)
[2016-12-29] MEDS ORDERED: CIPR-9 PO (09:34)
--- NOTE | 2016-12-29 09:41 | RADRPT ---
EXAM DATE/TIME: 12/29/2016 08:18 [place] COMPARISON: CT ABDOMEN & PELVIS W/O CONTRAST, November 22, 2014, 6:30. INDICATIONS : Lower abdominal pain and nausea. ORAL CONTRAST: No oral contrast ingested. RADIATION DOSE: 9.96 CTDIvol (mGy) MEDICAL HISTORY : Carcinoma, colon. Myasthenia gravis. SURGICAL HISTORY : Umbilical hernia repair. Liver resection. ENCOUNTER: Initial ACUITY: 1 day PAIN SCALE: 6/10 LOCATION: Bilateral lower quadrant TECHNIQUE: Volumetric scanning of the abdomen and pelvis was performed. Using automated exposure control and ad justment of the mA and/or kV according to patient size, radiation dose was kept as low as reasonably achievable to obtain optimal diagnostic quality images. FINDINGS: There are multiple fluid-filled mildly dilated loops of small bowel raising the possibility of small bowel ileus or partial small bowel obstruction in the expected region of the distal jejunum or possible proximal to mid ileum. Clinical correlation is recommended. There is evidence of a ventral abdominal wall hernia to the rig ht of midline within the right upper mid abdomen which contains only fat and no bowel loop. There is also evidence of a left inguinal hernia containing only fat. A right inguinal hernia repair has been performed and no recurr ent hernia is noted. evaluation of the solid organs of the abdomen is limited by the lack of intravenous contrast. The prostate gland is enlarged. The patient is status post previous colonic surgery with no definite colonic obst ruction noted. multiple surgical clips are noted within the right upper quadrant likely related to previous partial hepatectomy of the right lobe. A small right pleural effusion is noted. Degenerative changes and scoliosis of the thoracolumbar spine are noted. The urinary bladder is unremarkable. There is minimal ascites within the pelvis. CONCLUSION: 1. Fluid-filled mildly dilated loops of small bowel suggesting small bowel ileus or partial small hermes wel obstruction in the region of the distal jejunum or proximal to mid ileum. Clinical correlation i s recommended. 2. Ventral abdominal wall hernia to the right of midline in the upper abdomen which contains only fa t. 3. Left inguinal hernia containing only fat. 4. Enlarged prostate. 5. Minimal ascites within the pelvis. 6. Degenerative changes and scoliosis of the thoracolumbar spine. 7. Small right pleural effusion. Matt Coughlin MD on December 29, 2016 at 9:18 Board Certified Radiologist. This report was verified electronically.
[2016-12-29 09:46] VITALS: BP 153/67; PULSE 82; RESP 16; O2SAT 96
[2016-12-29] MEDS ORDERED: ONDANSETRON HCL 4 MG/2 ML VIAL IV PRN (10:45)
--- NOTE | 2016-12-29 10:45 | HHI.HP ---
[facility] Service Family Medicine Primary Care Physician Chris Doherty MD Admission Diagnosis partial small bowel obstruction versus ileus, UTI Diagnoses: International Travel<30 Days: No Contact w/Intl Traveler<30days: No Known Affected Area: No History of Present Illness Mr. Peters is an 85 y/o M with a PMHx of myasthenia gravis, metastatic colon cancer, and metastatic prostate cancer presenting to the hospital due to severe abdominal pain. He said that the abdominal pain started last night and has progressed into today (12/29/16). He felt nauseated and believed that he was close to vomiting but is yet to vomit. He said the abdominal pain was throughout his entire abdomen, however now it has subsided and he is no longer in pain. He is felt need to have a bowel movement but he has not been able to. He was living at the [facility] and was discharged to his apartment yesterday (12/29/16), while at the rehabilitation he was getting Colace and milk of magnesia daily and was having daily bowel movements. Yesterday he tried to just use an [id number] laxative but it was not helpful. He is unaware of passing gas at this time. Of note per the nurse she took a Xanax prior to coming to the hospital, after doing so he was very tired and difficult to arouse. However by the time of exam he had returned to his baseline. Review of Systems Constitutional: COMPLAINS OF: Change in appetite (decreased), DENIES: Fatigue , Fever, Weight gain, Weight loss, Chills, Dizziness Endocrine: DENIES: Polyuria, Polyphagia Eyes: DENIES: Blurred vision, Vision loss Ears, nose, mouth, throat: COMPLAINS OF: Tinnitus (chronic), DENIES: Vertigo, Nasal discharge, Throat pain, Hoarseness, Sinus Pain Respiratory: DENIES: Cough, Wheezing, Sputum production, Shortness of breath Cardiovascular: DENIES: Chest pain, Lower Extremity Edema, Claudication Gastrointestinal: COMPLAINS OF: Abdominal pain, Constipation, Nausea, DENIES: Black stools, Bloody stools, Diarrhea, Vomiting Genitourinary: COMPLAINS OF: Urinary frequency (increased), Dysuria, DENIES: Urinary incontinence, Hematuria Musculoskeletal: DENIES: Joint pain, Muscle aches, Back pain, Neck pain Integumentary: DENIES: Pruritus, Rash Hematologic/lymphatic: DENIES: Lymphadenopathy Immunologic/allergic: DENIES: Urticaria Neurologic: DENIES: Abnormal gait, Headache, Seizures, Tremor, Poor Balance Psychiatric: DENIES: Anxiety, Confusion, Agitation Past Family Social History Past Medical History Myasthenia Gravis metastatic colon cancer - (initial partial colectomy 1987 with met to liver 2000 with subsequent surgical resection), second primary colon cancer found 2007 and resected BPH - now s/p TURP Incisional hernia Hyperlipidemia 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 eye Carpal tunnel x2 Cataract x2 Reported Medications Reported Meds & Active Scripts Active Cipro (Ciprofloxacin HCl) 500 Mg Tab 500 Mg PO BID 7 Days Xanax (Alprazolam) 0.25 Mg Tab 0.25 Mg PO DAILY PRN Reported Tylenol (Acetaminophen) 325 Mg Tab 650 Mg PO Q4H PRN Dulcolax Supp (Bisacodyl) 10 Mg Supp 10 Mg RECTAL HS PRN Preservision Areds (Multiple Vitamins W/ Minerals) 1 Tab 1 Tab PO DAILY Mestinon (Pyridostigmine Hominy) 60 Mg Tab 120 Mg PO TID Milk of Magnesia Liq (Magnesium Hydroxide) 400 Mg/5 Ml Susp 30 Ml PO HS PRN Ensure Plus (Nutritional Supplements) 1 Liq Liq 1 Can PO DAILY Cyanocobalamin Inj (Cyanocobalamin) 1,000 Mcg/Ml Inj 1,000 Mcg IM MONTHLY Vitamin D3 (Cholecalciferol) 2,000 Unit Cap 2,000 Units PO DAILY Tums (Calcium Carbonate (Antacid)) 500 Mg Chew 1,000 Mg CHEW BID PRN Ranitidine (Ranitidine HCl) 150 Mg Tab 150 Mg PO DAILY Colace (Docusate Sodium) 100 Mg Cap 100 Mg PO BID Allergies: Coded Allergies: Sulfa (Verified Allergy, Severe, Flushing, 12/29/16) Ativan (Verified Allergy, Intermediate, Psychosis, 12/29/16) Compazine (Verified Allergy, Unknown, JITTERY, 12/29/16) Family History Father: at 89 renal failure/astherosclerosis/dementia Mother: at 29 of uterine cancer Social History Marital Status: Living Situation: Living in [facility] apartment 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 EYES: conjunctiva normal, PERRLA, EOMI. ENT: Mouth and pharynx normal. Rhinophyma. NECK: thyroid midline, carotids symmetrical. LUNGS: clear A-P, respiratory effort is normal. CARDIOVASCULAR: RR with 1-2/6 late systolic murmur at apex. Few large varicosities are present in legs. GI/ABD: Soft, non-tender, non-distended with hypoactive bowl sounds. Multiple healed surgical scars. Moderately large R. ventral hernia. BS present and normal. : no CVA tenderness, no tenderness with palpation of the bladder NEURO: CN II-XII intact. No ocular weakness or ptosis apparent. Gait is normal. Normal speech SKIN: color normal, no rashes noted. HEME/LYMPH: no bruising, petechia or significant adenopathy MUSC: Moves all extremities without difficulty. No calf pain or swelling. 2+ pedal pulses. PSYCH/MENTAL STATUS: Alert and oriented x 3. Normal affect. Laboratory Laboratory Tests Test 12/29/16 12/29/16 06:55 08:10 White Blood Count 6.0 Red Blood Count 3.69 Hemoglobin 9.9 Hematocrit 30.4 Mean Corpuscular Volume 82.2 Mean Corpuscular Hemoglobin 26.9 Mean Corpuscular Hemoglobin 32.7 Concent Red Cell Distribution Width 16.5 Platelet Count 165 Mean Platelet Volume 8.6 Neutrophils (%) (Auto) 80.0 Lymphocytes (%) (Auto) 7.8 Monocytes (%) (Auto) 10.3 Eosinophils (%) (Auto) 1.5 Basophils (%) (Auto) 0.4 Neutrophils # (Auto) 4.8 Lymphocytes # (Auto) 0.5 Monocytes # (Auto) 0.6 Eosinophils # (Auto) 0.1 Basophils # (Auto) 0.0 CBC Comment DIFF FINAL Differential Comment Sodium Level 139 Potassium Level 4.0 Chloride Level 104 Carbon Dioxide Level 30.1 Anion Gap 5 Blood Urea Nitrogen 30 Creatinine 1.03 Estimat Glomerular Filtration 68 Rate Random Glucose 141 Lactic Acid Level 0.8 Calcium Level 9.4 Total Bilirubin 0.9 Aspartate Amino Transf 18 (AST/SGOT) Alanine Aminotransferase 21 (ALT/SGPT) Alkaline Phosphatase 79 Total Protein 7.0 Albumin 3.6 Lipase 85 Urine Color YELLOW Urine Turbidity CLEAR Urine pH 6.5 Urine Specific Jackson 1.013 Urine Protein NEG Urine Glucose (UA) NEG Urine Ketones NEG Urine Occult Blood NEG Urine Nitrite NEG Urine Bilirubin NEG Urine Urobilinogen LESS THAN 2.0 Urine Leukocyte Esterase MOD Urine RBC 1 Urine WBC 11 Urine WBC Clumps RARE Urine Squamous Epithelial <1 Cells Urine Bacteria MANY Urine Mucus FEW Microscopic Urinalysis Comment CULTURE INDICATED Date/Time Procedure Status Source Growth 12/29/16 08:10 Urine Culture Received Urine Random Urine Pending Result Diagram: 12/29/16 0655 12/29/16 0655 Imaging Last Impressions Abdomen/Pelvis CT 12/29/16654 Signed Impressions: Service Date/Time: Thursday, December 29, 2016 08:18 - CONCLUSION: 1. Fluid- filled mildly dilated loops of small bowel suggesting small bowel ileus or partial small bowel obstruction in the region of the distal jejunum or proximal to mid ileum. Clinical correlation is recommended. 2. Ventral abdominal wall hernia to the right of midline in the upper abdomen which contains only fat. 3. Left inguinal hernia containing only fat. 4. Enlarged prostate. 5. Minimal ascites within the pelvis. 6. Degenerative changes and scoliosis of the thoracolumbar spine. 7. Small right pleural effusion. Matt Coughlin MD Assessment and Plan Assessment and Plan This is an 85 y/o M with a PMHx of myasthenia gravis, metastatic colon cancer, and metastatic prostate cancer presenting to the hospital due to severe abdominal pain. He is being admitted for small bowel obstruction versus ileus. Code Status Full code Discussed Condition With WDW: Dr. Doherty Problem List: (1) SBO (small bowel obstruction) Status: Acute Plan: Patient found to have a small bowel obstruction versus ileus on CT of the abdomen. Denies having any bowel movements in 1 day. Reports feeling constipated and the need to have a bowel movement but has been unable to have a bowel movement. He is having some nausea but no vomiting. * Admit to observation * Nothing by mouth * D5 half-normal saline plus KCl at 110 MLS per hour * Pain control with Tylenol and Motrin * Zofran 4 mg IV every 6 hours when necessary nausea or vomiting * Protonix 40 mg IV * Ramona-Colace 2 tablets by mouth twice a day * Milk of magnesia every 6 hours when necessary constipation * CBC, CMP ordered for the a.m. (2) Urinary tract infection Status: Acute Plan: Patient complaining of some burning with urination and increased urination. UA showed moderate leukocytes, elevated white blood cell count, many bacteria, and cultures were indicated. * Ciprofloxacin 40 mg IV every 12 hours * Urine cultures pending (3) Humerus fracture Status: Chronic Plan: Patient was recently discharged from rehabilitation for a humerus fracture, still currently in sling. Not complaining of pain at this time. * Pain control with Tylenol and Motrin (4) Myasthenia gravis Status: Chronic Plan: Long-standing history of myasthenia gravis * Continue home medication of pyridostigmine (5) Nutrition, metabolism, and development symptoms Status: Chronic Plan: IV fluids as above Diet nothing by mouth Monitor electrolytes replace accordingly DVT prophylaxis with heparin and SCDs Out of bed with assistance Vitals every 4 Telemetry CODE STATUS: Full code Disposition: Likely home in the next 1-2 days pending improvement of small bowel obstruction Ayden Alejo MD R2 December 29, 2016 10:45
[2016-12-29] MEDS ORDERED: MAGNESIUM HYDROXIDE SUSP 30 ML CUP PO PRN (11:15)
[2016-12-29] MEDS ORDERED: BISACODYL 10 MG SUPP RECTAL PRN (11:15)
[2016-12-29] MEDS ORDERED: ACETAMINOPHEN 325 MG TAB PO PRN (11:15)
[2016-12-29] MEDS ORDERED: IBUPROFEN 400 MG TAB PO PRN (11:15)
[2016-12-29] MEDS ORDERED: cloNIDine HCL 0.1 MG TAB PO PRN (11:30)
[2016-12-29] MEDS ORDERED: IBUPROFEN 600 MG TAB PO PRN (11:39)
[2016-12-29 12:24] VITALS: BP 121/58; PULSE 64; RESP 16; TEMP 98; O2SAT 98
[2016-12-29] MEDS: PANTOPRAZOLE SODIUM 40 MG VIAL IV SCH (13:37)
[2016-12-29] MEDS: DOCUSATE SODIUM 50 MG/SENNA 8.6 MG TAB PO SCH ×2 (13:37→21:16)
[2016-12-29] MEDS: PYRIDOSTIGMINE BROMIDE 60 MG TAB PO SCH ×2 (13:37→18:13)
[2016-12-29] MEDS: HEPARIN SODIUM - SQ 10,000 UNITS/ML VIAL SQ SCH ×2 (13:37→21:16)
[2016-12-29] MEDS: D5-1/2 NS + KCL 20 MEQ INJ 1,000 ML IV SCH ×3 (13:38→23:04)
[2016-12-29 15:17] VITALS: BP 127/61; PULSE 64; RESP 16; TEMP 97.8; O2SAT 99
[2016-12-29 19:17] VITALS: BP 125/60; PULSE 57; RESP 18; TEMP 97.7; O2SAT 96
[2016-12-29] MEDS: SODIUM CHLORIDE 0.9% FLUSH 10 ML FLUSH IV FLUSH SCH (21:17)
[2016-12-29] MEDS: CIPROFLOXACIN 400 MG PREMIX 200 ML IV SCH (21:17)
[2016-12-30] VITALS: BP 130/60; PULSE 72; RESP 18; TEMP 96.4; O2SAT 96
[2016-12-30 04:40] VITALS: BP 127/62; PULSE 64; RESP 17; TEMP 96.7; O2SAT 96
[2016-12-30] MEDS: HEPARIN SODIUM - SQ 10,000 UNITS/ML VIAL SQ SCH ×2 (05:39→12:00)
[2016-12-30 07:32] LABS: AUTOMATED NEUTROPHIL # 2.4 TH/MM3 (1.8-7.7); BASOPHIL % 1.1 % (0.0-2.0); EOSINOPHIL # 0.1 TH/MM3 (0-0.4); EOSINOPHIL % 1.9 % (0.0-4.0); HEMATOCRIT 27.7 % (39.0-51.0); HEMO FLAGS DIFF FINAL; LYMPH % 11.6 % (9.0-44.0); LYMPHOCYTE # 0.4 TH/MM3 (1.0-4.8); MEAN CELL VOLUME 83.4 FL (80.0-100.0); MEAN CORPUSCULAR HEMOGLOBIN 26.5 PG (27.0-34.0); MEAN CORPUSCULAR HGB CONC 31.7 % (32.0-36.0); MONO % 10.6 % (0.0-8.0); NEUT % 74.8 % (16.0-70.0); PLATELET COUNT 114 TH/MM3 (150-450); RED BLOOD COUNT 3.33 MIL/MM3 (4.50-5.90); RED CELL DISTRIBUTION WIDTH 16.4 % (11.6-17.2); WHITE BLOOD COUNT 3.2 TH/MM3 (4.0-11.0)
[2016-12-30 07:43] LABS: ANION GAP 4 MEQ/L (5-15); AST (GOT) 16 U/L (15-37); BICARBONATE 28.5 MEQ/L (21.0-32.0); BLOOD UREA NITROGEN 16 MG/DL (7-18); CHLORIDE 108 MEQ/L (98-107); GLOMERULAR FILTRATION RATE 83 ML/MIN (>89); SODIUM (NA) 140 MEQ/L (136-145)
[2016-12-30 07:47] LABS: ALKALINE PHOSPHATASE 69 U/L (45-117); ALT (GPT) 21 U/L (12-78); TOTAL BILIRUBIN ADULT 0.8 MG/DL (0.2-1.0)
[2016-12-30 08:00] VITALS: BP 133/60; PULSE 65; RESP 20; TEMP 97.8; O2SAT 98
[2016-12-30] MEDS: CIPROFLOXACIN 400 MG PREMIX 200 ML IV SCH (08:34)
[2016-12-30] MEDS: SODIUM CHLORIDE 0.9% FLUSH 10 ML FLUSH IV FLUSH SCH (08:35)
[2016-12-30] MEDS: PYRIDOSTIGMINE BROMIDE 60 MG TAB PO SCH ×2 (08:35→12:30)
[2016-12-30] MEDS: PANTOPRAZOLE SODIUM 40 MG VIAL IV SCH (08:35)
[2016-12-30] MEDS: DOCUSATE SODIUM 50 MG/SENNA 8.6 MG TAB PO SCH ×2 (08:35→08:37)
[2016-12-30] MEDS ORDERED: NUTRITIONAL SUPPLEMENTS PO SCH (09:00)
[2016-12-30] MEDS ORDERED: CHOLECALCIFEROL (VIT D3) 1000 UNIT TAB PO SCH (09:00)
[2016-12-30] MEDS ORDERED: MULTIVITAMIN-OPHTHALMIC 1 TAB PO SCH (09:00)
[2016-12-30] MEDS ORDERED: TYLE325T PO (09:39)
[2016-12-30] MEDS ORDERED: COLA100C3 PO (09:39)
[2016-12-30] MEDS ORDERED: ONDA4TAB7 SL (09:39)
--- NOTE | 2016-12-30 09:40 | HHI.DCPOC ---
Discharge Care Plan Diagnosis: (1) Closed left humeral fracture (2) Constipation (3) Myasthenia gravis Goals to Promote Your Health * To prevent worsening of your condition and complications * To maintain your health at the optimal level Directions to Meet Your Goals Take your medications as prescribed Follow your dietary instruction Follow activity as directed Keep your appointments as scheduled Take your immunizations and boosters as scheduled If your symptoms worsen call your PCP, if no PCP go to Urgent Care Center or Emergency Room Smoking is Dangerous to Your Health. Avoid second hand smoke Call the 24-hour hour crisis hotline for domestic abuse at Nida Cardona MD R1 December 30, 2016 09:40
[2016-12-30 11:39] VITALS: BP 99/54; PULSE 69; RESP 20; TEMP 97.8; O2SAT 96
--- NOTE | 2016-12-30 11:44 | HHI.HP ---
[facility] Service Family Medicine Primary Care Physician Chris Doherty MD Admission Diagnosis partial small bowel obstruction versus ileus, UTI Diagnoses: (1) SBO (small bowel obstruction) Diagnosis: Principal (2) Urinary tract infection Diagnosis: Principal (3) Humerus fracture Diagnosis: Principal (4) Myasthenia gravis Diagnosis: Principal (5) Nutrition, metabolism, and development symptoms Diagnosis: Principal International Travel<30 Days: No Contact w/Intl Traveler<30days: No Known Affected Area: No History of Present Illness Mr. Peters is an 85 y/o M with a PMHx of myasthenia gravis, metastatic colon cancer, and metastatic prostate cancer presenting to the hospital due to severe abdominal pain. He said that the abdominal pain started the night before admission and progressed into (12/29/16). He felt nauseated and believed that he was close to vomiting but did not vomit. He said the abdominal pain was throughout his entire abdomen, then it subsided and he is no longer in pain. He felt a need to have a bowel movement but he has not been able to. He was living at the [facility] and was discharged to his apartment ( 12/29/16), while at the rehabilitation he was getting Colace and milk of magnesia daily and was having daily bowel movements. Yesterday he tried to just use an [id number]-[id number] laxative but it was not helpful. He is unaware of passing gas at this time. Of note per the nurse he took a Xanax prior to coming to the hospital, after doing so he was very tired and difficult to arouse. However by the time of exam he had returned to his baseline. He has had no pain or problems since admission. He had 4 bowel movements since admission and has been pain free and is hungry now. He requests D/C to his assisted living today as he feels back to normal. Review of Systems Other Constitutional: COMPLAINS OF: Change in appetite (decreased), DENIES: Fatigue , Fever, Weight gain, Weight loss, Chills, Dizziness Endocrine: DENIES: Polyuria, Polyphagia Eyes: DENIES: Blurred vision, Vision loss Ears, nose, mouth, throat: COMPLAINS OF: Tinnitus (chronic), DENIES: Vertigo, Nasal discharge, Throat pain, Hoarseness, Sinus Pain Respiratory: DENIES: Cough, Wheezing, Sputum production, Shortness of breath Cardiovascular: DENIES: Chest pain, Lower Extremity Edema, Claudication Gastrointestinal: COMPLAINS OF: Abdominal pain, Constipation, Nausea, DENIES: Black stools, Bloody stools, Diarrhea, Vomiting Genitourinary: COMPLAINS OF: Urinary frequency (increased), Dysuria, DENIES: Urinary incontinence, Hematuria Musculoskeletal: DENIES: Joint pain, Muscle aches, Back pain, Neck pain Integumentary: DENIES: Pruritus, Rash Hematologic/lymphatic: DENIES: Lymphadenopathy Immunologic/allergic: DENIES: Urticaria Neurologic: DENIES: Abnormal gait, Headache, Seizures, Tremor, Poor Balance Psychiatric: DENIES: Anxiety, Confusion, Agitation Past Family Social History Past Medical History Myasthenia Gravis metastatic colon cancer - (initial partial colectomy 1987 with met to liver 2000 with subsequent surgical resection), second primary colon cancer found 2007 and resected BPH - now s/p TURP Incisional hernia Hyperlipidemia 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 EYES: conjunctiva normal, PERRLA, EOMI. ENT: Mouth and pharynx normal. Rhinophyma. NECK: thyroid midline, carotids symmetrical. LUNGS: clear A-P, respiratory effort is normal. CARDIOVASCULAR: RR with 1-2/6 late systolic murmur at apex. Few large varicosities are present in legs. GI/ABD: Soft, non-tender, non-distended with hypoactive bowl sounds. Multiple healed surgical scars. Moderately large R. ventral hernia. BS present and normal. : no CVA tenderness, no tenderness with palpation of the bladder NEURO: CN II-XII intact. No ocular weakness or ptosis apparent. Gait is normal. Normal speech SKIN: color normal, no rashes noted. HEME/LYMPH: no bruising, petechia or significant adenopathy MUSC: Moves all extremities without difficulty. No calf pain or swelling. 2+ pedal pulses. PSYCH/MENTAL STATUS: Alert and oriented x 3. Normal affect. Laboratory Laboratory Tests Test 12/30/16 12/30/16 06:20 06:28 Sodium Level 140 Potassium Level 4.0 Chloride Level 108 Carbon Dioxide Level 28.5 Anion Gap 4 Blood Urea Nitrogen 16 Creatinine 0.87 Estimat Glomerular Filtration 83 Rate Random Glucose 124 Calcium Level 8.9 Total Bilirubin 0.8 Aspartate Amino Transf 16 (AST/SGOT) Alanine Aminotransferase 21 (ALT/SGPT) Alkaline Phosphatase 69 Total Protein 5.8 Albumin 2.9 White Blood Count 3.2 Red Blood Count 3.33 Hemoglobin 8.8 Hematocrit 27.7 Mean Corpuscular Volume 83.4 Mean Corpuscular Hemoglobin 26.5 Mean Corpuscular Hemoglobin 31.7 Concent Red Cell Distribution Width 16.4 Platelet Count 114 Mean Platelet Volume 8.8 Neutrophils (%) (Auto) 74.8 Lymphocytes (%) (Auto) 11.6 Monocytes (%) (Auto) 10.6 Eosinophils (%) (Auto) 1.9 Basophils (%) (Auto) 1.1 Neutrophils # (Auto) 2.4 Lymphocytes # (Auto) 0.4 Monocytes # (Auto) 0.3 Eosinophils # (Auto) 0.1 Basophils # (Auto) 0.0 CBC Comment DIFF FINAL Differential Comment Date/Time Procedure Status Source Growth 12/29/16 08:10 Urine Culture Received Urine Random Urine Pending Result Diagram: 12/30/1662712/30/16 06 Imaging Last Impressions Abdomen/Pelvis CT 12/29/16 0655 Signed Impressions: Service Date/Time: Thursday, December 29, 2016 08:18 - CONCLUSION: 1. Fluid- filled mildly dilated loops of small bowel suggesting small bowel ileus or partial small bowel obstruction in the region of the distal jejunum or proximal to mid ileum. Clinical correlation is recommended. 2. Ventral abdominal wall hernia to the right of midline in the upper abdomen which contains only fat. 3. Left inguinal hernia containing only fat. 4. Enlarged prostate. 5. Minimal ascites within the pelvis. 6. Degenerative changes and scoliosis of the thoracolumbar spine. 7. Small right pleural effusion. Matt Coughlin MD Assessment and Plan Assessment and Plan This is an 85 y/o M with a PMHx of myasthenia gravis, metastatic colon cancer, and metastatic prostate cancer presenting to the hospital due to severe abdominal pain. He is being admitted for small bowel obstruction versus ileus. Problem List: (1) SBO (small bowel obstruction) Status: Acute Plan: Patient found to have a small bowel obstruction versus ileus on CT of the abdomen. Denied having any bowel movements in 1 day. Reports feeling constipated and the need to have a bowel movement but had been unable to have a bowel movement. He is having some nausea but no vomiting. * Admitted to observation vs admit * Nothing by mouth * D5 half-normal saline plus KCl at 110 MLS per hour * Pain control with Tylenol and Motrin * Zofran 4 mg IV every 6 hours when necessary nausea or vomiting * Protonix 40 mg IV * Ramona-Colace 2 tablets by mouth twice a day * Milk of magnesia every 6 hours when necessary constipation * CBC, CMP ordered for the a.m. * he feels back to normal and wants to go home today (2) Urinary tract infection Status: Acute Plan: Patient complaining of some burning with urination and increased urination. UA showed moderate leukocytes, elevated white blood cell count, many bacteria, and cultures were indicated. * Ciprofloxacin 40 mg IV every 12 hours can take po at home * Urine cultures pending (3) Humerus fracture Status: Chronic Plan: Patient was recently discharged from rehabilitation for a humerus fracture, still currently in sling. Not complaining of pain at this time. * Pain control with Tylenol and Motrin (4) Myasthenia gravis Status: Chronic Plan: Long-standing history of myasthenia gravis * Continue home medication of pyridostigmine (5) Nutrition, metabolism, and development symptoms Status: Chronic Plan: IV fluids as above Diet regular now Monitor electrolytes replace accordingly DVT prophylaxis with heparin and SCDs Out of bed with assistance Vitals every 4 Telemetry CODE STATUS: Full code Disposition: home today Problem Qualifiers (1) Urinary tract infection: (2) Humerus fracture: Perla Hutchins MD December 30, 2016 11:44
--- NOTE | 2016-12-30 18:31 | EKG ---
Date Performed: 12/29/2016 Time Performed: 08:34:35 PTAGE: 86 years EKG: Sinus rhythm WITH FREQUENT VENTRICULAR PREMATURE COMPLEXES RIGHT BUNDLE BRANCH BLOCK ABNORMAL ECG Compared to basia or tracing no significant change PREVIOUS TRACING on 09/19/2016 DOCTOR: Mickey Cardona Interpretating Date/Time 12/30/2016 18:27:39
[2017-02-14] MEDS ORDERED: DOCU100C PO (11:05)
[2017-02-22] MEDS ORDERED: ALPR.25 PO (12:50)
== END 2016-12-30 13:50 | disposition home or self-care (01) | DRG 389 ==
LOC: NEPE 06:40 → NEDA 10:35 → NEPGCP 11:42 → N04A 22:50
PROVIDERS: ADMIT Family Medicine; ATTEND Family Medicine
DX: K56.69 Other intestinal obstruction (principal); N39.0 Urinary tract infection, site not specified; R18.8 Other ascites; G70.00 Myasthenia gravis without (acute) exacerbation; M41.9 Scoliosis, unspecified; E78.5 Hyperlipidemia, unspecified; N40.0 Benign prostatic hyperplasia without lower urinary tract symptoms; Z85.038 Personal history of other malignant neoplasm of large intestine; Z85.05 Personal history of malignant neoplasm of liver; Z85.46 Personal history of malignant neoplasm of prostate; Z90.49 Acquired absence of other specified parts of digestive tract
CPT/HCPCS: 74176; 80053; 81001; 83605; 83690; 85025; 87077; 87086; 87186; 93005; 96361; 96365; 96375; C9113; J0744; J1644; J2405; J3480; J7030

== ENCOUNTER → 2017-04-11 | Outpatient (CLI) | payer MEDICARE ==
[~2017-04-11] MED LIST changes: -COLA100C3 PO; +DOCU100C PO; -DULC10SU3 RECTAL; -MILKSUS PO; +NORC5TAB PO
[2017-04-11 12:33] LABS: AUTOMATED NEUTROPHIL # 2.1 TH/MM3 (1.8-7.7); BASOPHIL % 0.9 % (0.0-2.0); EOSINOPHIL # 0.1 TH/MM3 (0-0.4); EOSINOPHIL % 4.7 % (0.0-4.0); HEMATOCRIT 35.6 % (39.0-51.0); LYMPH % 10.7 % (9.0-44.0); LYMPHOCYTE # 0.3 TH/MM3 (1.0-4.8); MEAN CELL VOLUME 86.2 FL (80.0-100.0); MEAN CORPUSCULAR HEMOGLOBIN 28.3 PG (27.0-34.0); MEAN CORPUSCULAR HGB CONC 32.8 % (32.0-36.0); MONO % 9.6 % (0.0-8.0); NEUT % 74.1 % (16.0-70.0); PLATELET COUNT 130 TH/MM3 (150-450); RED BLOOD COUNT 4.13 MIL/MM3 (4.50-5.90); RED CELL DISTRIBUTION WIDTH 25.2 % (11.6-17.2); WHITE BLOOD COUNT 2.8 TH/MM3 (4.0-11.0)
[2017-04-11 12:40] LABS: HEMO FLAGS AUTO DIFF
[2017-04-11 12:52] LABS: ALT (GPT) 16 U/L (12-78); ANION GAP 4 MEQ/L (5-15); AST (GOT) 13 U/L (15-37); BICARBONATE 30.8 MEQ/L (21.0-32.0); BLOOD UREA NITROGEN 28 MG/DL (7-18); CHLORIDE 106 MEQ/L (98-107); GLOMERULAR FILTRATION RATE 62 ML/MIN (>89); GLUCOSE,FASTING 89 MG/DL (74-99); SODIUM (NA) 141 MEQ/L (136-145)
[2017-04-11 12:55] LABS: ALKALINE PHOSPHATASE 85 U/L (45-117); TOTAL BILIRUBIN ADULT 0.8 MG/DL (0.2-1.0)
[2017-04-11 14:53] LABS: PLATELET ESTIMATE SMEAR LOW (NORMAL); PLATELET MORPHOLOGY NORMAL (NORMAL); SCAN/DIFF AUTO DIFF CONFIRMED
== END ==
LOC: ELAB 10:35
PROVIDERS: ATTEND Specialist
DX: G93.3 Postviral and related fatigue syndromes (principal); M31.6 Other giant cell arteritis; G70.01 Myasthenia gravis with (acute) exacerbation
CPT/HCPCS: 36415; 80053; 85025

== ENCOUNTER 2017-05-27 03:47 | Observation (INO) | payer MEDICARE ==
[~2017-05-27] VITALS: Ht 180.3 cm; Wt 75.4 kg
[~2017-05-27 03:47] MED LIST changes: -NORC5TAB PO
[2017-05-27] MEDS ORDERED: SODIUM CHLOR 0.9% 1000 ML INJ 1,000 ML IV SCH ×2 (03:50→05:02)
--- NOTE | 2017-05-27 03:55 | PD ---
HPI Chief Complaint: ABD PAIN Time Seen by Provider: 03:50 Travel History International Travel<30 days: No Contact w/Intl Traveler<30days: No Traveled to known affect area: No History of Present Illness HPI C/O ABD PAIN, CRAMPY, LOWER ABD, 03/07, NO V/D/FEVER, ONGOING FOR PAST FEW HOURS. WAS ABLE TO HAVE BM 2 DAYS AGO. PFSH Past Medical History Anemia: Yes Arthritis: Yes Asthma: No Autoimmune Disease: Yes (MYASTHENIA GRAVIS) Blood Disorders: No Anxiety: No Depression: No Heart Rhythm Problems: No Cancer: Yes (COLON, PROSTATE AND LIVER) Cardiovascular Problems: No High Cholesterol: Yes Chemotherapy: Yes Chest Pain: No Congestive Heart Failure: No COPD: No Diabetes: No Diminished Hearing: Yes (BILATERAL HEARING AIDS) Endocrine: No Gastrointestinal Disorders: Yes (COLON/LIVER CA) GERD: No Genitourinary: Yes (PROSTATE CA) Hiatal Hernia: No Hypertension: No Immune Disorder: Yes (MYASTHENIA GRAVIS) Implanted Vascular Access Dvce: No Kidney Stones: Yes (1983) Musculoskeletal: Yes Neurologic: No Psychiatric: No Reproductive: No Respiratory: No Immunizations Current: Yes Radiation Therapy: Yes Renal Failure: No Sleep Apnea: No Thyroid Disease: No Ulcer: No Past Surgical History Abdominal Surgery: Yes (COLON RESECTION DUE TO COLON CAN 1987 AND 2007) Eye Surgery: Yes (L EYE SURGERY on retina) Pacemaker: No Thoracic Surgery: Yes (LIVER RESECTION 2000) Tonsillectomy: Yes Other Surgery: Yes (HERNIA REPAIR JUN 2001) Social History Alcohol Use: No Tobacco Use: No Substance Use: No Allergies-Medications (Allergen,Severity, Reaction): Coded Allergies: Sulfa (Sulfonamide Antibiotics) (Unverified Allergy, Severe, Flushing, ) lorazepam (Unverified Allergy, Intermediate, Psychosis, 05/27/17) prochlorperazine (Unverified Allergy, Unknown, JITTERY, 05/27/17) Reported Meds & Prescriptions Reported Meds & Active Scripts Active Xanax (Alprazolam) 0.25 Mg Tab 0.25 Mg PO DAILY PRN Tylenol (Acetaminophen) 325 Mg Tab 650 Mg PO Q4H PRN Reported Preservision Areds (Multiple Vitamins W/ Minerals) 1 Tab 1 Tab PO BID Docusate Sodium 100 Mg Cap 100 Mg PO BID Mestinon (Pyridostigmine [place]) 60 Mg Tab 120 Mg PO TID Ensure Plus (Nutritional Supplements) 1 Liq Liq 1 Can PO DAILY Cyanocobalamin Inj (Cyanocobalamin) 1,000 Mcg/Ml Inj 1,000 Mcg IM MONTHLY Vitamin D3 (Cholecalciferol) 2,000 Unit Cap 2,000 Units PO DAILY Tums (Calcium Carbonate (Antacid)) 500 Mg Chew 1,000 Mg CHEW BID PRN Review of Systems Except as stated in HPI: all other systems reviewed are Neg Gastrointestinal: Positive: Nausea, Abdominal Pain Physical Exam Narrative GENERAL: SKIN: Warm and dry. HEAD: Atraumatic. Normocephalic. EYES: Pupils equal and round. No scleral icterus. No injection or drainage. ENT: No nasal bleeding or discharge. Mucous membranes pink and moist. NECK: Trachea midline. No JVD. CARDIOVASCULAR: Regular rate and rhythm. RESPIRATORY: No accessory muscle use. Clear to auscultation. Breath sounds equal bilaterally. GASTROINTESTINAL: Abdomen soft, non-tender, nondistended. MUSCULOSKELETAL: Extremities without clubbing, cyanosis, or edema. No obvious deformities. NEUROLOGICAL: Awake and alert. No obvious cranial nerve deficits. Motor grossly within normal limits. Five out of 5 muscle strength in the arms and legs. Normal speech. PSYCHIATRIC: Appropriate mood and affect; insight and judgment normal. Data Data Last Documented VS Vital Signs Date Time Temp Pulse Resp B/P (MAP) Pulse Ox O2 Delivery O2 Flow Rate FiO2 05/27/17 04:05 97.4 67 18 149/70 (96) 96 05/27/17 04:04 Room Air Orders Orders Complete Blood Count With Diff (05/27/17 03:50) Comprehensive Metabolic Panel (05/27/17 03:50) Lipase (05/27/17 03:50) Lactic Acid (05/27/17 03:50) Prothrombin Time / Inr (Pt) (05/27/17 03:50) Act Partial Throm Time (Ptt) (05/27/17 03:50) Urinalysis - C+S If Indicated (05/27/17 03:50) Ct Abd/Pel W/O Iv Contrast (05/27/17 03:50) Iv Access Insert/Monitor (05/27/17 03:50) Ecg Monitoring (05/27/17 03:50) Oximetry (05/27/17 03:50) NPO (05/27/17 03:50) Morphine Inj (Morphine Inj) (05/27/17 04:00) Ondansetron Inj (Zofran Inj) (05/27/17 04:00) Sodium Chlor 0.9% 1000 Ml Inj (Ns 1000 M (05/27/17 03:50) Electrocardiogram (05/27/17 03:50) Ckmb (Isoenzyme) Profile (05/27/17 03:52) Troponin I (05/27/17 03:52) Sodium Chlor 0.9% 1000 Ml Inj (Ns 1000 M (05/27/17 05:02) Abdomen, Flat & Upright (05/27/17 05:31) Admit Order (Ed Use Only) (05/27/17 06:21) Labs Laboratory Tests Test 05/27/17 04:00 05/27/17 05:20 White Blood Count 5.0 TH/MM3 Red Blood Count 4.09 MIL/MM3 Hemoglobin 12.4 GM/DL Hematocrit 37.5 % Mean Corpuscular Volume 91.7 FL Mean Corpuscular Hemoglobin 30.4 PG Mean Corpuscular Hemoglobin Concent 33.1 % Red Cell Distribution Width 15.0 % Platelet Count 131 TH/MM3 Mean Platelet Volume 7.5 FL Neutrophils (%) (Auto) 81.6 % Lymphocytes (%) (Auto) 7.2 % Monocytes (%) (Auto) 9.5 % Eosinophils (%) (Auto) 1.2 % Basophils (%) (Auto) 0.5 % Neutrophils # (Auto) 4.1 TH/MM3 Lymphocytes # (Auto) 0.4 TH/MM3 Monocytes # (Auto) 0.5 TH/MM3 Eosinophils # (Auto) 0.1 TH/MM3 Basophils # (Auto) 0.0 TH/MM3 CBC Comment AUTO DIFF Differential Comment AUTO DIFF CONFIRMED Platelet Estimate LOW Platelet Morphology Comment NORMAL Ovalocytes 1+ Acanthocytes OCC Prothrombin Time 11.1 SEC Prothromb Time International Ratio 1.0 RATIO Activated Partial Thromboplast Time 23.1 SEC Blood Urea Nitrogen 24 MG/DL Creatinine 1.18 MG/DL Random Glucose 139 MG/DL Total Protein 7.0 GM/DL Albumin 3.8 GM/DL Calcium Level 9.1 MG/DL Alkaline Phosphatase 81 U/L Aspartate Amino Transf (AST/SGOT) 12 U/L Alanine Aminotransferase (ALT/SGPT) 18 U/L Total Bilirubin 1.2 MG/DL Sodium Level 139 MEQ/L Potassium Level 3.9 MEQ/L Chloride Level 106 MEQ/L Carbon Dioxide Level 30.1 MEQ/L Anion Gap 3 MEQ/L Estimat Glomerular Filtration Rate 58 ML/MIN Lactic Acid Level 0.7 mmol/L Lipase 64 U/L Urine Color YELLOW Urine Turbidity CLEAR Urine pH 6.5 Urine Specific [place] 1.018 Urine Protein TRACE mg/dL Urine Glucose (UA) NEG mg/dL Urine Ketones NEG mg/dL Urine Occult Blood NEG Urine Nitrite NEG Urine Bilirubin NEG Urine Urobilinogen LESS THAN 2.0 MG/DL Urine Leukocyte Esterase NEG Urine RBC 1 /hpf Urine WBC 1 /hpf Urine Hyaline Casts 1 /lpf Urine Mucus FEW /lpf Microscopic Urinalysis Comment CULT NOT INDICATED MDM Medical Decision Making Medical Screen Exam Complete: Yes Emergency Medical Condition: Yes Medical Record Reviewed: Yes Interpretation(s) NSR, 63, RBBB, LVH NO ACUTE STEMI PATTERN Differential Diagnosis SBO V COLITIS V ILEUS V HERNIA Narrative Course PATIENT FOUND TO HAVE INGUINAL HERNIA WITH SUBSEQUENT ILEUS, PATIENT WAS SEEN AFTERWARDS AND AFTER MORPHINE, PT TOLERATED REDUCTION OF INGUINAL HERNIA, GREAT PAIN RELIEF AFTERWARDS AND REPEAT XRAY SHOWED ONLY MILD ILEUS BUT DID NOT TOLERATE PO CHALLENGE. SO WILL NOT BE ABLE TO D/C, INSTEAD WILL KEEP FOR OBS Diagnosis Primary Impression: PARTIAL SBO Additional Impression: Reducible right inguinal hernia Admitting Information Admitting Physician Requests: Observation Patient Instructions: General Instructions Elkin Mclean MD May 27, 2017 03:55
[2017-05-27] MEDS ORDERED: MORPHINE SULFATE 4 MG/ML INJ IV PUSH ONE (04:00)
[2017-05-27] MEDS ORDERED: ONDANSETRON HCL 4 MG/2 ML VIAL IVP ONE (04:00)
[2017-05-27 04:04] VITALS: O2SAT 98
[2017-05-27 04:05] VITALS: BP 149/70; PULSE 67; RESP 18; TEMP 97.4; O2SAT 96
[2017-05-27 04:08] LABS: AUTOMATED NEUTROPHIL # 4.1 TH/MM3 (1.8-7.7); BASOPHIL % 0.5 % (0.0-2.0); EOSINOPHIL # 0.1 TH/MM3 (0-0.4); EOSINOPHIL % 1.2 % (0.0-4.0); HEMATOCRIT 37.5 % (39.0-51.0); LYMPH % 7.2 % (9.0-44.0); LYMPHOCYTE # 0.4 TH/MM3 (1.0-4.8); MEAN CELL VOLUME 91.7 FL (80.0-100.0); MEAN CORPUSCULAR HEMOGLOBIN 30.4 PG (27.0-34.0); MEAN CORPUSCULAR HGB CONC 33.1 % (32.0-36.0); MONO % 9.5 % (0.0-8.0); NEUT % 81.6 % (16.0-70.0); PLATELET COUNT 131 TH/MM3 (150-450); RED BLOOD COUNT 4.09 MIL/MM3 (4.50-5.90)
[2017-05-27 04:14] LABS: HEMO FLAGS AUTO DIFF
[2017-05-27 04:25] LABS: APTT (PATIENT) 23.1 SEC (24.3-30.1); PROTHROMBIN TIME - PATIENT 11.1 SEC (9.8-11.6)
[2017-05-27 04:36] LABS: ALT (GPT) 18 U/L (12-78); ANION GAP 3 MEQ/L (5-15); AST (GOT) 12 U/L (15-37); BICARBONATE 30.1 MEQ/L (21.0-32.0); BLOOD UREA NITROGEN 24 MG/DL (7-18); CHLORIDE 106 MEQ/L (98-107); GLOMERULAR FILTRATION RATE 58 ML/MIN (>89); POTASSIUM 3.9 MEQ/L (3.5-5.1); SODIUM (NA) 139 MEQ/L (136-145)
--- NOTE | 2017-05-27 04:36 | RADRPT ---
EXAM DATE/TIME: 05/27/2017 03:59 [facility] COMPARISON: CT ABDOMEN & PELVIS W/O CONTRAST, December 29, 2016, 8:18. INDICATIONS : Bilateral lower quadrant abdominal pain. ORAL CONTRAST: No oral contrast ingested. RADIATION DOSE: 6.64 CTDIvol (mGy) MEDICAL HISTORY : Carcinoma, colon. Carcinoma, prostate. Benign prostatic hyperplasia, (BPH) SURGICAL HISTORY : Liver resection. ENCOUNTER: Initial ACUITY: 1 day PAIN SCALE: 8/10 LOCATION: Bilateral lower quadrant abdomen TECHNIQUE: Volumetric scanning of the abdomen and pelvis was performed. Using automated exposure control and ad justment of the mA and/or kV according to patient size, radiation dose was kept as low as reasonably achievable to obtain optimal diagnostic quality images. DICOM format image data is available electro nically for review and comparison. FINDINGS: One lung bases demonstrate small right pleural effusion slightly improved from December 2016. There is postop changes of partial resection right lobe liver. Splenic granulomata present. Right adr enal unremarkable. Left adrenal hyperplasia. No renal abnormalities. Right sided ventral hernia just above the umbilicus contains fat and now also contains a partial loop of bowel which appears to be large bowel. There is a right-sided inguinal hernia which now contains a loop of small bowel and appears to be res ulting in at least a partial small bowel obstruction. Numerous surgical clips in the pelvis. No pelvic free fluid. No adenopathy. Advanced degenerative john nge of the spine. CONCLUSION: 1. Right-sided inguinal hernia containing bowel, probably the cause of partial or early small bowel o bstruction. 2. Right sided ventral area containing a partial loop of colon which does not appear to result in obs truction. 3. Small right-sided pleural effusion improved from December 2016. 4. Postoperative partial resection right lobe liver. Vamshi Ellis MD on May 27, 2017 at 4:28 Board Certified Radiologist. This report was verified electronically.
[2017-05-27 04:40] LABS: ALKALINE PHOSPHATASE 81 U/L (45-117); TOTAL BILIRUBIN ADULT 1.2 MG/DL (0.2-1.0)
[2017-05-27] MEDS ORDERED: OCUVTAB4 PO (05:01)
[2017-05-27 05:06] LABS: ACANTHOCYTES OCC (NORMAL); OVALOCYTES 1+ (NORMAL); PLATELET ESTIMATE SMEAR LOW (NORMAL); PLATELET MORPHOLOGY NORMAL (NORMAL)
[2017-05-27 05:07] LABS: SCAN/DIFF AUTO DIFF CONFIRMED
--- NOTE | 2017-05-27 06:04 | RADRPT ---
EXAM DATE/TIME: 05/27/2017 05:36 [facility] COMPARISON: ABDOMEN FLAT & UPRIGHT, May 24, 2014, 18:51. INDICATIONS : Bilateral lower quadrant pain MEDICAL HISTORY : Carcinoma, colon. Carcinoma, prostate. Benign prostatic hyperplasia, (BPH) SURGICAL HISTORY : Liver resection. ENCOUNTER: Initial ACUITY: 1 day PAIN SCORE: 7/10 LOCATION: Bilateral Abdomen FINDINGS: Supine and upright views of the abdomen were performed. Mild ileus present. No obstruction or free ai r. Advanced degenerative change of the spine. Small right pleural effusion. Multiple surgical clips i n the pelvis. CONCLUSION: 1. Mild ileus. Vamshi Ellis MD on May 27, 2017 at 5:59 Board Certified Radiologist. This report was verified electronically.
[2017-05-27 06:20] LABS: BLOOD, URINE NEG (NEG); COMMENT (UR) CULT NOT INDICATED; CULTURE IF INDICATED CULT NOT INDICATED; GLUCOSE,URINE NEG (NEG); HYALINE CAST, URINE 1 /lpf (RARE); KETONE, URINE NEG (NEG); MUCUS URINE FEW /lpf (OCC); NITRITE,URINE NEG (NEG); PH, URINE 6.5 (5.0-8.5); URINE COLOR YELLOW (YELLW/STRAW)
--- NOTE | 2017-05-27 06:35 | HHI.HP ---
[facility] Service Family Medicine Primary Care Physician Unknown Admission Diagnosis PARTIAL SBO, RIGHT INGUINAL HERNIA S/P REDUCTION Diagnoses: International Travel<30 Days: No Contact w/Intl Traveler<30days: No Known Affected Area: No History of Present Illness Mr. Peters is a 86 y/o M with a PMHx of myasthenia gravis and colon resection for colon cancer presents with ABD pain for approximately 1 week. He states last week he started become nauseous intermittently throughout the day with mild crampy abdominal pain. Initially he thought he was developing C. difficile colitis as his was recently diagnosed and hospitalized. He had multiple loose stools on Tuesday and was then seen by his PCP, Dr. Doherty, who ordered a stool collection per patient (orders not found per chart review). Since his loose stools on Tuesday he has not had another bowel movement and continues to have intermittent crampy abdominal pain. He decided to present to the ED after experiencing 9/10 pain that was constant in nature. He indicates that the pain is most severe periumbilically, that radiates to all quadrants of his abdomen. He states that he feels like he has "severe gas" and it is very bloated. He normally takes Colace twice a day to assist with bowel movements as he has myasthenia gravis, however he does not believe this has been working over the last week. He denies any fever or vomiting over this timeframe. He otherwise has no complaints and denies complete review of systems unless otherwise stated. Of note he has had multiple abdominal surgeries including 3 colectomies for metastatic colon cancer. He has also been previously diagnosed with a reducible right inguinal hernia. The patient was given morphine and inguinal hernia was reduced by ER physician which unfortunately did not resolve his pain or obstruction. (Fabricio Siegel MD R2) Review of Systems Constitutional: DENIES: Fever, Dizziness Eyes: DENIES: Blurred vision Ears, nose, mouth, throat: DENIES: Throat pain Respiratory: DENIES: Cough Cardiovascular: DENIES: Chest pain Gastrointestinal: COMPLAINS OF: Constipation, Nausea, DENIES: Diarrhea, Vomiting Genitourinary: COMPLAINS OF: Dysuria Musculoskeletal: DENIES: Joint pain Integumentary: DENIES: Rash Hematologic/lymphatic: DENIES: Lymphadenopathy Neurologic: DENIES: Headache Psychiatric: DENIES: Mood changes (Fabricio Siegel MD R2) Past Family Social History Past Medical History Myasthenia Gravis metastatic colon cancer - (initial partial colectomy 1987 with met to liver 2000 with subsequent surgical colon and liver resection), second primary colon cancer found 2007 and resected (3 total resections) BPH - now s/p TURP Incisional hernia Inguinal hernia 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 SKIN: No rashes, ecchymoses or lesions. Cool and dry. HEAD: Atraumatic. Normocephalic. No temporal or scalp tenderness. EYES: Pupils equal round and reactive. Extraocular motions intact. No scleral icterus. No injection or drainage. ENT: Nose without bleeding, purulent drainage or septal hematoma. Throat without erythema, tonsillar hypertrophy or exudate. Uvula midline. Airway patent. NECK: Trachea midline. No JVD or lymphadenopathy. Supple, nontender, no meningeal signs. CARDIOVASCULAR: Regular rate and rhythm without murmurs, gallops, or rubs. RESPIRATORY: Clear to auscultation. Breath sounds equal bilaterally. No wheezes , rales, or rhonchi. GASTROINTESTINAL: Abdomen soft, non-tender, nondistended. No hepato-splenomegaly , or palpable masses. No guarding. MUSCULOSKELETAL: Extremities without clubbing, cyanosis, or edema. No joint tenderness, effusion, or edema noted. No calf tenderness. Negative Homans sign bilaterally. NEUROLOGICAL: Awake and alert. Cranial nerves II through XII intact. Motor and sensory grossly within normal limits. Five out of 5 muscle strength in all muscle groups. Normal speech. Laboratory Laboratory Tests Test 05/27/17 04:00 05/27/17 05:20 White Blood Count 5.0 Red Blood Count 4.09 Hemoglobin 12.4 Hematocrit 37.5 Mean Corpuscular Volume 91.7 Mean Corpuscular Hemoglobin 30.4 Mean Corpuscular Hemoglobin Concent 33.1 Red Cell Distribution Width 15.0 Platelet Count 131 Mean Platelet Volume 7.5 Neutrophils (%) (Auto) 81.6 Lymphocytes (%) (Auto) 7.2 Monocytes (%) (Auto) 9.5 Eosinophils (%) (Auto) 1.2 Basophils (%) (Auto) 0.5 Neutrophils # (Auto) 4.1 Lymphocytes # (Auto) 0.4 Monocytes # (Auto) 0.5 Eosinophils # (Auto) 0.1 Basophils # (Auto) 0.0 CBC Comment AUTO DIFF Differential Comment AUTO DIFF CONFIRMED Platelet Estimate LOW Platelet Morphology Comment NORMAL Ovalocytes 1+ Acanthocytes OCC Prothrombin Time 11.1 Prothromb Time International Ratio 1.0 Activated Partial Thromboplast Time 23.1 Blood Urea Nitrogen 24 Creatinine 1.18 Random Glucose 139 Total Protein 7.0 Albumin 3.8 Calcium Level 9.1 Alkaline Phosphatase 81 Aspartate Amino Transf (AST/SGOT) 12 Alanine Aminotransferase (ALT/SGPT) 18 Total Bilirubin 1.2 Sodium Level 139 Potassium Level 3.9 Chloride Level 106 Carbon Dioxide Level 30.1 Anion Gap 3 Estimat Glomerular Filtration Rate 58 Lactic Acid Level 0.7 Lipase 64 Urine Color YELLOW Urine Turbidity CLEAR Urine pH 6.5 Urine Specific [place] 1.018 Urine Protein TRACE Urine Glucose (UA) NEG Urine Ketones NEG Urine Occult Blood NEG Urine Nitrite NEG Urine Bilirubin NEG Urine Urobilinogen LESS THAN 2.0 Urine Leukocyte Esterase NEG Urine RBC 1 Urine WBC 1 Urine Hyaline Casts 1 Urine Mucus FEW Microscopic Urinalysis Comment CULT NOT INDICATED (Fabricio Siegel MD R2) Result Diagram: 05/27/17 0400 05/27/17 0400 Imaging Last 72 hours Impressions Abdomen X-Ray 05/27/17 0531 Signed Impressions: Service Date/Time: Saturday, May 27, 2017 05:36 - CONCLUSION: 1. Mild ileus. Vamshi Ellis MD Abdomen/Pelvis CT 05/27/17 0350 Signed Impressions: Service Date/Time: Saturday, May 27, 2017 03:59 - CONCLUSION: 1. Right-sided inguinal hernia containing bowel, probably the cause of partial or early small bowel obstruction. 2. Right sided ventral area containing a partial loop of colon which does not appear to result in obstruction. 3. Small right-sided pleural effusion improved from December 2016. 4. Postoperative partial resection right lobe liver. Vamshi Ellis MD (Fabricio Siegel MD R2) Caprini VTE Risk Assessment Caprini VTE Risk Assessment: Mod/High Risk (score >= 2) Caprini Risk Assessment Model Point Value = 1 Point Value = 2 Point Value = 3 Point Value = 5 Age 41-60 Minor surgery BMI > 25 kg/m2 Swollen legs Varicose veins or History of unexplained or recurrent spontaneous Oral contraceptives or hormone replacement Sepsis (< 1 month) Serious lung disease, including pneumonia (< 1 month) Abnormal pulmonary function Acute myocardial infarction Congestive heart failure (< 1 month) History of inflammatory bowel disease Medical patient at bed rest Age 61-74 Arthroscopic surgery Major open surgery (> 45 min) Laparoscopic surgery (> 45 min) Malignancy Confined to bed (> 72 hours) Immobilizing plaster cast Central venous access Age >= 75 History of VTE Family history of VTE Factor V Leiden Prothrombin [id number] Lupus anticoagulant Anticardiolipin antibodies Elevated serum homocysteine Heparin-induced thrombocytopenia Other congenital or acquired thrombophilia Stroke (< 1 month) Elective arthroplasty Hip, pelvis, or leg fracture Acute spinal cord injury (< 1 month) Prophylaxis Regimen Total Risk Factor Score Risk Level Prophylaxis Regimen 0-1 Low Early ambulation 2 Moderate Order ONE of the following: *Sequential Compression Device (SCD) *Heparin 5000 units SQ BID 3-4 Higher Order ONE of the following medications: *Heparin 5000 units SQ TID *Enoxaparin/Lovenox 40 mg SQ daily (WT < 150 kg, CrCl > 30 mL/min) *Enoxaparin/Lovenox 30 mg SQ daily (WT < 150 kg, CrCl > 10-29 mL/min) *Enoxaparin/Lovenox 30 mg SQ BID (WT < 150 kg, CrCl > 30 mL/min) AND/OR *Sequential Compression Device (SCD) 5 or more Highest Order ONE of the following medications: *Heparin 5000 units SQ TID (Preferred with Epidurals) *Enoxaparin/Lovenox 40 mg SQ daily (WT < 150 kg, CrCl > 30 mL/min) *Enoxaparin/Lovenox 30 mg SQ daily (WT < 150 kg, CrCl > 10-29 mL/min) *Enoxaparin/Lovenox 30 mg SQ BID (WT < 150 kg, CrCl > 30 mL/min) AND *Sequential Compression Device (SCD) (Fabricio Siegel MD R2) Assessment and Plan Assessment and Plan Mr. Peters is a 86 y/o M with a PMHx of myasthenia gravis and colon resection for colon cancer presents with ABD pain for approximately 1 week likely due to obstruction. Code Status Full code Discussed Condition With Dr. Mclean, ER physician (Fabricio Siegel MD R2) Attending Attestation Patient seen and examined. Case reviewed and discussed with the resident team. Agree with plan of care as discussed with me and documented in the resident note. Mr Peters was seen in the ED the day of admission. He was feeling better after his hernia was reduced. He reports wearing a truss normally. Unsure if anything else can be done. Per pt, he may not be the best surgical candidate with his myasthenia. However, he could have more problems in the future with this hernia. Appreciate help of surgery to see if anything else can be done. (Perla Hutchins MD) Problem List: (1) SBO (small bowel obstruction) ICD Codes: K56.69 - Other intestinal obstruction Status: Acute Plan: Patient presenting with abdominal pain and constipation of 48 hours likely secondary to obstruction possibly related to his myasthenia gravis, reducible right inguinal hernia, or multiple abdominal surgeries. While in the ER his right inguinal hernia was reduced, however his symptoms were not resolved. The patient did not tolerate a by mouth challenge and was admitted for observation at that time. During my examination patient able to tolerate cups of water, however does not feel hungry for complete by mouth challenge at this time. -Abdominal CT: Right-sided inguinal hernia containing bowel, probably the cause of partial or early small bowel obstruction. Right-sided ventral area containing a partial loop of colon which does not appear to result in obstruction. Small right-sided pleural effusion improved from December 2016. Postoperative partial resection of the right liver lobe. -Abdominal x-ray: Mild ileus -CBC: WBC 5, H/H 12.4/37.5, platelets 131 -CMP: Within normal limits -Lipase: Within normal limits at 64 -UA: Negative -Full liquid diet as tolerated Medications: -D5 half-normal saline with KCl 20 mEq at 75 mL per hour -Tylenol and Motrin for pain -Constipation protocol: [place]-Colace 1 tab twice a day scheduled Milk of magnesia, sennosides, Dulcolax, lactulose to be used as needed -Famotidine 20 mg twice a day IV -Zofran 4 mg IV every 8 hours when necessary for nausea/vomiting (2) Reducible right inguinal hernia ICD Codes: K40.90 - Unilateral inguinal hernia, without obstruction or gangrene , not specified as recurrent Status: Acute Plan: Patient with a reducible right inguinal hernia on CT -Reduced by ER physician with 2 mg morphine given (3) Myasthenia gravis ICD Codes: G70.00 - Myasthenia gravis Status: Chronic Plan: Patient with history of myasthenia gravis -Continue home Mestinon 120 mg 3 times a day Permanent Comment: Dysphagia; elevated acetycholine recept bind AB elevated, striated muscle ab + Last Edited By: Chris Doherty on Aug 26, 2014 13:53 (4) Anxiety ICD Codes: F41.9 - Anxiety Status: Chronic Plan: Patient with chronic history of anxiety -Continue home Xanax 0.25 mg as needed (5) GERD Status: Chronic Plan: Patient with past medical history concerning for GERD -Hold home calcium carbonate -Famotidine 20 mg twice a day IV (6) Anemia ICD Codes: D64.9 - Anemia, unspecified Status: Chronic Plan: Patient with reported history of anemia. Patient previously on iron orally, however transition to IV iron infusions due to constipation. Currently managed by hematology (patient not able to identify physician). -CBC: WBC 5, H/H 12.4/37.5, platelets 131 -Per chart review patient's hemoglobin baseline at approximately 11-12 (7) Thrombocytopenia ICD Codes: D69.6 - Thrombocytopenia Status: Chronic Plan: Patient with history of thrombocytopenia. Currently being managed by hematology. -CBC: WBC 5, H/H 12.4/37.5, platelets 131 -Per chart review, patient's baseline ranges from 90-110s -Continue to monitor (8) Nutrition, metabolism, and development symptoms ICD Codes: R63.8 - Other symptoms and signs concerning food and fluid intake Status: Acute Plan: -Fluids: D5 half-normal saline with KCl 20 mEq at 75 mL per hour -Diet: Full liquid diet as tolerated as patient has tolerated clear liquids thus far -Electrolytes: Within normal limits, continue to monitor - (9) No contraindication to deep vein thrombosis (DVT) prophylaxis ICD Codes: Z78.9 - Other specified health status Status: Acute Plan: -SCD/TEDs -Heparin 5000 units every 8 hours (Fabricio Siegel MD R2) Problem Qualifiers (1) GERD: Qualified Codes: K21.9 - Gastro-esophageal reflux disease without esophagitis Fabricio Siegel MD R2 May 27, 2017 06:35 Perla Hutchins MD May 27, 2017 12:04
[2017-05-27] MEDS ORDERED: CALCIUM CARBONATE 500 MG CHEWABLE TAB CHEW PRN (06:45)
[2017-05-27] MEDS ORDERED: ALPRAZolam 0.25 MG TAB PO PRN (06:45)
[2017-05-27] MEDS ORDERED: ACETAMINOPHEN 325 MG TAB PO PRN ×2 (06:45→07:00)
[2017-05-27] MEDS ORDERED: SENNOSIDES 8.6 MG TAB PO PRN (07:00)
[2017-05-27] MEDS ORDERED: BISACODYL 10 MG SUPP RECTAL PRN (07:00)
[2017-05-27] MEDS ORDERED: NALOXONE HCL 0.4 MG/ML AMP IV PUSH PRN (07:00)
[2017-05-27] MEDS ORDERED: MAGNESIUM HYDROXIDE SUSP 30 ML CUP PO PRN (07:00)
[2017-05-27] MEDS ORDERED: IBUPROFEN 400 MG TAB PO PRN (07:00)
[2017-05-27] MEDS ORDERED: LACTULOSE SYRUP 20 GM/30 ML CUP PO PRN (07:00)
[2017-05-27] MEDS: D5-1/2 NS + KCL 20 MEQ INJ 1,000 ML IV SCH ×2 (07:42→19:35)
[2017-05-27] MEDS: HEPARIN SODIUM - SQ 10,000 UNITS/ML VIAL SQ SCH ×2 (07:42→13:33)
[2017-05-27] MEDS ORDERED: ONDANSETRON HCL 4 MG/2 ML VIAL IV PUSH PRN (08:00)
[2017-05-27] MEDS: CHOLECALCIFEROL (VIT D3) 1000 UNIT TAB PO SCH (09:00)
--- NOTE | 2017-05-27 10:36 | EKG ---
Date Performed: 05/27/2017 Time Performed: 03:59:26 PTAGE: 86 years EKG: Sinus rhythm RIGHT BUNDLE BRANCH BLOCK Compared to prior tracing no significant change ABNORMAL ECG PREVIOUS TRACING : 12/29/2016 08.34 DOCTOR: Mickey Cardona Interpretating Date/Time 05/27/2017 10:35:27
[2017-05-27 10:58] VITALS: BP 143/71; PULSE 66; RESP 16; TEMP 98.7; O2SAT 99
[2017-05-27] MEDS: DOCUSATE SODIUM 50 MG/SENNA 8.6 MG TAB PO SCH ×2 (11:17→22:02)
[2017-05-27] MEDS: FAMOTIDINE 20 MG/2 ML VIAL IV PUSH SCH ×2 (11:18→22:02)
[2017-05-27] MEDS ORDERED: DEXAMETHASONE SOD PHOS 4 MG/ML VIAL IV ONE (12:00)
[2017-05-27] MEDS ORDERED: PROPOFOL 200 MG/20 ML AMP IV ONE (12:00)
[2017-05-27] MEDS: PYRIDOSTIGMINE BROMIDE 60 MG TAB PO SCH ×4 (12:00→16:36)
[2017-05-27] MEDS ORDERED: ONDANSETRON HCL 4 MG/2 ML VIAL IV PUSH ONE (12:00)
[2017-05-27] MEDS ORDERED: LACTATED RINGER'S 1000 ML INJ 2,000 ML IV ONE (12:00)
[2017-05-27] MEDS: MULTIVITAMIN-OPHTHALMIC 1 TAB PO SCH ×3 (12:00→22:02)
[2017-05-27] MEDS ORDERED: ACETAMINOPHEN 1000 MG/100 ML 0 ML IV ONE (14:53)
--- NOTE | 2017-05-27 15:30 | PD.CONS ---
cc: Yosvany Warner MD [facility] Service General Surgery Consult Requested By Dr. Alejo Reason for Consult Evaluation of RIGHT inguinal hernia Primary Care Physician Chris Doherty MD History of Present Illness This is an 86 year old male with a past medical history of myasthenia gravis, colon cancer, BPH, incisional hernia and repeat inguinal hernia. The patient started to develop pelvic pain on Tuesday afternoon. He has had ongoing abdominal pain with associated nausea since this time. He reports a normal bowel movement Tuesday morning. He states that is normal for him to have a daily bowel movement. He does report some minimal flatus that only started about midmorning today. The hernia was reduced in the ER and he has remained NPO since then. A General Surgery consultation has been requested for evaluation of reducible RIGHT inguinal hernia. Review of Systems Constitutional: DENIES: Fatigue, Chills, Dizziness Endocrine: DENIES: Polydipsia, Polyuria, Polyphagia Eyes: DENIES: Diplopia Ears, nose, mouth, throat: DENIES: Hearing loss Respiratory: DENIES: Cough Cardiovascular: DENIES: Chest pain Gastrointestinal: COMPLAINS OF: Abdominal pain, Diarrhea, Nausea, DENIES: Vomiting Genitourinary: DENIES: Urgency Musculoskeletal: DENIES: Joint pain Integumentary: DENIES: Abnormal pigmentation Hematologic/lymphatic: DENIES: Bruising Immunologic/allergic: DENIES: Eczema Neurologic: DENIES: Abnormal gait, Headache Psychiatric: DENIES: Mood changes, Depression, Hallucinations Past Family Social History Past Medical History Myasthenia gravis colon cancer BPH Incisional hernia Inguinal hernia Past Surgical History Partial colectomy x 2 (7987 and 2007) Partial liver resection TURP Retina surgery Cataract surgery Carpal tunnel x2 Reported Medications Mestinon When all Xanax Ensure Plus Agustin Colace Vitamin B complex Vitamin D Multivitamin Allergies: Coded Allergies: Sulfa (Sulfonamide Antibiotics) (Unverified Allergy, Severe, Flushing, ) lorazepam (Unverified Allergy, Intermediate, Psychosis, 05/27/17) prochlorperazine (Unverified Allergy, Unknown, JITTERY, 05/27/17) Active Ordered Medications Current Medications Medications (Trade) Dose Ordered Sig/Brock Route Start Time Stop Time Status Last Admin (Tylenol) 650 mg Q4H PRN PO 05/27/17 06:45 (Xanax) 0.25 mg DAILY PRN PO 05/27/17 06:45 (Tums Chew) 1,000 mg BID PRN CHEW 05/27/17 06:45 Future Hold (Vitamin D3) 2,000 units DAILY PO 05/27/17 09:00 (Mestinon) 120 mg TID PO 05/27/17 09:00 (Ocuvite) 1 tab BID PO 05/27/17 09:00 05/27/17 12:00 Potassium Chloride/Dextrose/ Sod Cl 1,000 ml @ 75 mls/hr [id number] IV 05/27/17 07:00 05/27/17 07:42 (Pepcid Inj) 20 mg Q12HR IV PUSH 05/27/17 09:00 05/27/17 11:18 (Heparin Inj) 5,000 units Q8H SQ 05/27/17 07:00 Future Hold 05/27/17 07:42 (Ramona-Colace) 1 tab BID PO 05/27/17 09:00 05/27/17 11:17 (Milk Of Magnesia Liq) 30 ml Q12H PRN PO 05/27/17 07:00 (Senokot) 17.2 mg Q12H PRN PO 05/27/17 07:00 (Dulcolax Supp) 10 mg DAILY PRN RECTAL 05/27/17 07:00 (Lactulose Liq) 30 ml DAILY PRN PO 05/27/17 07:00 (Tylenol) 650 mg Q6H PRN PO 05/27/17 07:00 (Motrin) 400 mg Q6H PRN PO 05/27/17 07:00 (Narcan Inj) 0.4 mg UNSCH PRN IV PUSH 05/27/17 07:00 (Zofran Inj) 4 mg Q8HR PRN IV PUSH 05/27/17 08:00 Family History Noncontributory Social History Lives in the [facility] Denies tobacco use Denies EtOH use Denies illicit drug use Physical Exam Vital Signs Vital Signs Date Time Temp Pulse Resp B/P (MAP) Pulse Ox O2 Delivery O2 Flow Rate FiO2 05/27/17 10:58 98.7 66 16 143/71 (95) 99 05/27/17 04:05 97.4 67 18 149/70 (96) 96 05/27/17 04:04 98 Room Air Physical Exam GENERAL: Pleasant 86 year old male resting in bed in no acute distress. SKIN: Warm and dry. HEAD: Atraumatic. Normocephalic. EYES: Pupils equal and round. No scleral icterus. No injection or drainage. ENT: No nasal bleeding or discharge. Mucous membranes pink and moist. NECK: Trachea midline. CARDIOVASCULAR: Regular rate and rhythm. RESPIRATORY: No accessory muscle use. Clear to auscultation. Breath sounds equal bilaterally. GASTROINTESTINAL: Abdomen soft, non-tender, nondistended. RIGHT reducible inguinal hernia. Well healed midline incision MUSCULOSKELETAL: Extremities without clubbing, cyanosis, or edema. No obvious deformities. NEUROLOGICAL: Awake and alert. No obvious cranial nerve deficits. Motor grossly within normal limits. Five out of 5 muscle strength in the arms and legs. Normal speech. PSYCHIATRIC: Appropriate mood and affect; insight and judgment normal. Laboratory Laboratory Tests Test 05/27/17 04:00 05/27/17 05:20 05/27/17 07:20 White Blood Count 5.0 Red Blood Count 4.09 Hemoglobin 12.4 Hematocrit 37.5 Mean Corpuscular Volume 91.7 Mean Corpuscular Hemoglobin 30.4 Mean Corpuscular Hemoglobin Concent 33.1 Red Cell Distribution Width 15.0 Platelet Count 131 Mean Platelet Volume 7.5 Neutrophils (%) (Auto) 81.6 Lymphocytes (%) (Auto) 7.2 Monocytes (%) (Auto) 9.5 Eosinophils (%) (Auto) 1.2 Basophils (%) (Auto) 0.5 Neutrophils # (Auto) 4.1 Lymphocytes # (Auto) 0.4 Monocytes # (Auto) 0.5 Eosinophils # (Auto) 0.1 Basophils # (Auto) 0.0 CBC Comment AUTO DIFF Differential Comment AUTO DIFF CONFIRMED Platelet Estimate LOW Platelet Morphology Comment NORMAL Ovalocytes 1+ Acanthocytes OCC Prothrombin Time 11.1 Prothromb Time International Ratio 1.0 Activated Partial Thromboplast Time 23.1 Blood Urea Nitrogen 24 Creatinine 1.18 Random Glucose 139 Total Protein 7.0 Albumin 3.8 Calcium Level 9.1 Alkaline Phosphatase 81 Aspartate Amino Transf (AST/SGOT) 12 Alanine Aminotransferase (ALT/SGPT) 18 Total Bilirubin 1.2 Sodium Level 139 Potassium Level 3.9 Chloride Level 106 Carbon Dioxide Level 30.1 Anion Gap 3 Estimat Glomerular Filtration Rate 58 Lactic Acid Level 0.7 Lipase 64 Urine Color YELLOW Urine Turbidity CLEAR Urine pH 6.5 Urine Specific [place] 1.018 Urine Protein TRACE Urine Glucose (UA) NEG Urine Ketones NEG Urine Occult Blood NEG Urine Nitrite NEG Urine Bilirubin NEG Urine Urobilinogen LESS THAN 2.0 Urine Leukocyte Esterase NEG Urine RBC 1 Urine WBC 1 Urine Hyaline Casts 1 Urine Mucus FEW Microscopic Urinalysis Comment CULT NOT INDICATED Total Creatine Kinase 50 Troponin I 0.02 Result Diagram: 05/27/1739905/27/17399 Imaging Last 48 hours Impressions Abdomen X-Ray 05/27/17530 Signed Impressions: Service Date/Time: Saturday, May 27, 2017 05:36 - CONCLUSION: 1. Mild ileus. Vamshi Ellis MD Abdomen/Pelvis CT 05/27/17 0350 Signed Impressions: Service Date/Time: Saturday, May 27, 2017 03:59 - CONCLUSION: 1. Right-sided inguinal hernia containing bowel, probably the cause of partial or early small bowel obstruction. 2. Right sided ventral area containing a partial loop of colon which does not appear to result in obstruction. 3. Small right-sided pleural effusion improved from December 2016. 4. Postoperative partial resection right lobe liver. Vamshi Ellis MD Assessment and Plan Assessment and Plan 86 year old male with reducible RIGHT inguinal hernia -Plan for OR this evening -Obtain consents -NPO -Hold anticoagulation -Start Zosyn -Discussed with patient's Neurologist Dr. Loyola ---okay with surgery -Thank you for this consult; We will continue to follow Attending Note - Dr. Warner Previously incarcerated [facility] with SBO; hernia reduced this AM and pain now resolved. Hernia is reducible; recommended surgery today to prevent ER visits and possible need for bowel resection. The exam, history, and the medical decision-making described in the above note were completed with the assistance of the mid-level provider. I reviewed and agree with the findings presented. I attest that I had a [id number] encounter with the patient on the same day, and personally performed and documented my assessment and findings in the medical record. Discussed Condition With Thelma Peters Dr., RN May 27, 2017 15:30 Yosvany Warner MD May 27, 2017 19:06
[2017-05-27] MEDS ORDERED: BUPIVACAINE/EPINEPHRINE 0.5% 50 ML VIAL ONE (15:50)
[2017-05-27 16:03] VITALS: BP 148/69; PULSE 62; RESP 16; TEMP 98.5; O2SAT 95
[2017-05-27] MEDS: PIPERACIL-TAZO 3.375 GM PREMIX 50 ML IV SCH (16:22)
[2017-05-27] MEDS ORDERED: PYRIDOSTIGMINE BROMIDE 60 MG TAB PO ONE (17:00)
--- NOTE | 2017-05-27 18:57 | HHI.PR ---
cc: Yosvany Warner MD Immediate Post Op Note Procedure Date: May 27, 2017 Pre Op Diagnosis: Previously incarcerated recurrent right inguinal hernia Post Op Diagnosis: Same Surgeon: Yosvany Warner Data Warehousing Engineer(s): Sidney Schaefer CST Procedure: Open recurrent right inguinal hernia repair with mesh Findings: Recurrent indirect right inguinal hernia Complications: None Specimen(s) removed: None Estimated blood loss: <10 ml Anesthesia: General Drains: None IVF (1000 ml) Patient to: PACU Patient Condition: Good Date/Time of Procedure: SEE SURGICAL CARE RECORD Yosvany Warner MD May 27, 2017 18:57
[2017-05-27] MEDS ORDERED: DO NOT ADM ANY ANTICOAGULANT DRUGS PRN (19:00)
[2017-05-27] MEDS ORDERED: MORPHINE SULFATE 4 MG/ML INJ IV PUSH PRN (19:00)
[2017-05-27] MEDS ORDERED: ACETAMINOPHEN 1000 MG/100 ML VIAL IV PRN (19:00)
[2017-05-27] MEDS ORDERED: NORC5TAB PO (19:02)
[2017-05-27] MEDS ORDERED: ACETAMINOPHEN 1000 MG/100 ML 100 ML IV ONE (19:18)
[2017-05-27] MEDS ORDERED: ACETAMINOPHEN/HYDROcodone 325 MG/5 MG TAB PO PRN (21:00)
[2017-05-28] VITALS: BP 126/64; PULSE 78; RESP 16; TEMP 97.8; O2SAT 98
[2017-05-28] MEDS: PIPERACIL-TAZO 3.375 GM PREMIX 50 ML IV SCH ×2 (00:16→09:00)
[2017-05-28 04:00] VITALS: BP 100/59; PULSE 62; RESP 18; TEMP 96.7; O2SAT 97
[2017-05-28] MEDS: D5-1/2 NS + KCL 20 MEQ INJ 1,000 ML IV SCH (05:26)
[2017-05-28 05:41] LABS: AUTOMATED NEUTROPHIL # 3.5 TH/MM3 (1.8-7.7); BASOPHIL % 0.2 % (0.0-2.0); EOSINOPHIL % 0.1 % (0.0-4.0); LYMPH % 4.8 % (9.0-44.0); LYMPHOCYTE # 0.2 TH/MM3 (1.0-4.8); MEAN CORPUSCULAR HEMOGLOBIN 30.5 PG (27.0-34.0); MEAN CORPUSCULAR HGB CONC 33.2 % (32.0-36.0); NEUT % 86.9 % (16.0-70.0); PLATELET COUNT 94 TH/MM3 (150-450); RED CELL DISTRIBUTION WIDTH 14.7 % (11.6-17.2); WHITE BLOOD COUNT 4.1 TH/MM3 (4.0-11.0)
[2017-05-28 05:51] LABS: HEMO FLAGS AUTO DIFF
[2017-05-28 06:10] LABS: ALKALINE PHOSPHATASE 75 U/L (45-117); ALT (GPT) 35 U/L (12-78); ANION GAP 7 MEQ/L (5-15); AST (GOT) 41 U/L (15-37); BICARBONATE 25.5 MEQ/L (21.0-32.0); BLOOD UREA NITROGEN 18 MG/DL (7-18); CHLORIDE 107 MEQ/L (98-107); GLOMERULAR FILTRATION RATE 60 ML/MIN (>89); POTASSIUM 4.3 MEQ/L (3.5-5.1); SODIUM (NA) 139 MEQ/L (136-145); TOTAL BILIRUBIN ADULT 1.4 MG/DL (0.2-1.0)
[2017-05-28 07:43] LABS: PLATELET ESTIMATE SMEAR LOW (NORMAL); PLATELET MORPHOLOGY NORMAL (NORMAL); SCAN/DIFF AUTO DIFF CONFIRMED
[2017-05-28 08:00] VITALS: BP 118/57; PULSE 56; RESP 18; TEMP 97.3; O2SAT 99
[2017-05-28] MEDS: DOCUSATE SODIUM 50 MG/SENNA 8.6 MG TAB PO SCH (09:21)
[2017-05-28] MEDS: CHOLECALCIFEROL (VIT D3) 1000 UNIT TAB PO SCH (09:21)
[2017-05-28] MEDS: MULTIVITAMIN-OPHTHALMIC 1 TAB PO SCH (09:21)
[2017-05-28] MEDS: PYRIDOSTIGMINE BROMIDE 60 MG TAB PO SCH (09:22)
--- NOTE | 2017-05-28 09:27 | HHI.FPPN ---
Subjective Remarks Mr Peters feels great this am with only some incisional pain where he had his surgery. He is happily eating breakfast and ready to go back to his assisted living. He will get up and walk with his cane prior to D/C. He had his small bowel obstruction when he came to the hospital but should not have that problem anymore. He has not had a bowel movement but will take stool softeners at home. He was encouraged to take laxatives as well as pain meds can cause constipation. He will not drive for at least 3 weeks or until his surgeon says he can. Objective Vitals Vital Signs Date Time Temp Pulse Resp B/P (MAP) Pulse Ox O2 Delivery O2 Flow Rate FiO2 05/28/17 04:00 96.7 62 18 100/59 (73) 97 05/28/17 00:00 Nasal Cannula 2.00 05/28/17 00:00 97.8 78 16 126/64 (84) 98 05/27/17 22:12 Nasal Cannula 2.00 05/27/17 19:30 71 14 133/62 (85) 100 Room Air 05/27/17 19:15 68 13 127/61 (83) 100 Room Air 05/27/17 19:04 68 12 131/60 (83) 100 Room Air 05/27/17 19:00 98.4 70 19 139/65 (89) 100 Nasal Cannula 2 05/27/17 16:03 98.5 62 16 148/69 (95) 95 05/27/17 10:58 98.7 66 16 143/71 (95) 99 I/O 05/27/17 05/27/17 05/27/17 05/28/17 05/28/17 05/28/17 06:59 14:59 22:59 06:59 14:59 22:59 Intake Total 1339 ml 1100 ml 1070 ml Output Total 150 ml 110 ml 200 ml Balance -150 ml 1339 ml 990 ml 870 ml Intake Oral 200 ml 120 ml IV Total 1139 ml 100 ml 950 ml Other 1000 ml Output Urine Total 150 ml 100 ml 200 ml Estimated Blood Loss 10 ml # Voids 1 # Bowel Movements 0 Result Diagram: 05/28/17 0430 05/28/17 0430 Objective Remarks GENERAL: This is a thin pleasant elderly gentleman, in no apparent distress. Eating breakfast this am and had dinner last night. SKIN: No rashes, ecchymoses or lesions. Cool and dry. HEAD: Atraumatic. Normocephalic. EYES: Pupils equal round and reactive. Extraocular motions intact. No scleral icterus. No injection or drainage. ENT: Nose without bleeding, purulent drainage or septal hematoma. Throat without erythema, tonsillar hypertrophy or exudate. Uvula midline. Airway patent. NECK: Trachea midline. No JVD or lymphadenopathy. Supple, nontender, no meningeal signs. CARDIOVASCULAR: Regular rate and rhythm with murmur systolic at left sternal border soft, no gallops, or rubs. RESPIRATORY: Clear to auscultation. Breath sounds equal bilaterally. No wheezes , rales, or rhonchi. GASTROINTESTINAL: Abdomen soft, non-tender, nondistended. No hepato-splenomegaly , or palpable masses. No guarding. thin bandage over incision right lower abdomen clean and dry MUSCULOSKELETAL: Extremities without clubbing, cyanosis, or edema. No joint tenderness, effusion, or edema noted. No calf tenderness. Negative Homans sign bilaterally. NEUROLOGICAL: Awake and alert. Cranial nerves II through XII intact. Motor and sensory grossly within normal limits. Five out of 5 muscle strength in all muscle groups. Normal speech. Urinary Catheter: No Vascular Central Line Catheter: No A/P Assessment and Plan Mr. Peters is a 86 y/o M with a PMHx of myasthenia gravis and colon resection for colon cancer presents with ABD pain for approximately 1 week due to obstruction. Had hernia repair right inguinal 05/27 and is doing very well this am. Discharge Planning home today as long as he ambulates well as he is eating and feel good Problem List: (1) SBO (small bowel obstruction) ICD Codes: K56.69 - Other intestinal obstruction Status: Acute Plan: Patient presenting with abdominal pain and constipation of 48 hours secondary to obstruction with reducible right inguinal hernia though pt could not reduce himself at home. While in the ER his right inguinal hernia was reduced, however his symptoms were not resolved. The patient did not tolerate a by mouth challenge and was admitted for observation at that time. He was taken for repair last night and has done well. He had multiple episodes where he had similar problems with this hernia and likely would have lost bowel at some point. Appreciate help of surgery! -Abdominal CT: Right-sided inguinal hernia containing bowel, probably the cause of partial or early small bowel obstruction. Right-sided ventral area containing a partial loop of colon which does not appear to result in obstruction. Small right-sided pleural effusion improved from December 2016. Postoperative partial resection of the right liver lobe. -Abdominal x-ray: Mild ileus once hernia reduced -CBC: WBC 5, H/H 12.4/37.5, platelets 131 -CMP: Within normal limits -Lipase: Within normal limits at 64 -UA: Negative (2) Myasthenia gravis ICD Codes: G70.00 - Myasthenia gravis Status: Chronic Plan: Patient with history of myasthenia gravis -Continue home Mestinon 120 mg 3 times a day Permanent Comment: Dysphagia; elevated acetycholine recept bind AB elevated, striated muscle ab + Last Edited By: Chris Doherty on Aug 26, 2014 13:53 (3) Anxiety ICD Codes: F41.9 - Anxiety Status: Chronic Plan: Patient with chronic history of anxiety -Continue home Xanax 0.25 mg as needed (4) GERD Status: Chronic Plan: Patient with past medical history concerning for GERD -Hold home calcium carbonate -Famotidine 20 mg twice a day IV (5) Anemia ICD Codes: D64.9 - Anemia, unspecified Status: Chronic Plan: Patient with reported history of anemia. Patient previously on iron orally, however transitioned to IV iron infusions due to constipation. Currently managed by hematology (patient not able to identify physician). -CBC: WBC 5, H/H 12.4/37.5, platelets 131 -Per chart review patient's hemoglobin baseline at approximately 11-12 (6) Thrombocytopenia ICD Codes: D69.6 - Thrombocytopenia Status: Chronic Plan: Patient with history of thrombocytopenia. Currently being managed by hematology. -CBC: WBC 5, H/H 12.4/37.5, platelets 131 -Per chart review, patient's baseline ranges from 90-110s -Continue to monitor (7) Nutrition, metabolism, and development symptoms ICD Codes: R63.8 - Other symptoms and signs concerning food and fluid intake Status: Acute Plan: -Fluids: D5 half-normal saline with KCl 20 mEq at 75 mL per hour -Diet: regular diet -Electrolytes: Within normal limits, continue to monitor - (8) No contraindication to deep vein thrombosis (DVT) prophylaxis ICD Codes: Z78.9 - Other specified health status Status: Acute Plan: -SCD/TEDs -Heparin 5000 units every 8 hours stopped with surgery Problem Qualifiers (1) GERD: Qualified Codes: K21.9 - Gastro-esophageal reflux disease without esophagitis (2) Anemia: Qualified Codes: D64.9 - Anemia, unspecified Perla Hutchins MD May 28, 2017 09:27
--- NOTE | 2017-05-28 10:03 | HHI.DCPOC ---
Discharge Care Plan Diagnosis: (1) Inguinal hernia, right Goals to Promote Your Health * To prevent worsening of your condition and complications * To maintain your health at the optimal level Directions to Meet Your Goals Take your medications as prescribed Follow your dietary instruction Follow activity as directed Keep your appointments as scheduled Take your immunizations and boosters as scheduled If your symptoms worsen call your PCP, if no PCP go to Urgent Care Center or Emergency Room Smoking is Dangerous to Your Health. Avoid second hand smoke Call the 24-hour hour crisis hotline for domestic abuse at Ayden Alejo MD, R3 May 28, 2017 10:03
--- NOTE | 2017-05-28 10:06 | HHI.PR ---
Subjective Subjective Notes no acute issues, pain better, tolerating diet Objective Vitals/I&O Vital Signs Date Time Temp Pulse Resp B/P (MAP) Pulse Ox O2 Delivery O2 Flow Rate FiO2 05/28/17 08:00 97.3 56 18 118/57 (77) 99 05/28/17 00:00 Nasal Cannula 2.00 Labs Laboratory Tests Test 05/28/17 04:30 White Blood Count 4.1 Red Blood Count 3.70 Hemoglobin 11.3 Hematocrit 34.0 Mean Corpuscular Volume 92.0 Mean Corpuscular Hemoglobin 30.5 Mean Corpuscular Hemoglobin Concent 33.2 Red Cell Distribution Width 14.7 Platelet Count 94 Mean Platelet Volume 7.9 Neutrophils (%) (Auto) 86.9 Lymphocytes (%) (Auto) 4.8 Monocytes (%) (Auto) 8.0 Eosinophils (%) (Auto) 0.1 Basophils (%) (Auto) 0.2 Neutrophils # (Auto) 3.5 Lymphocytes # (Auto) 0.2 Monocytes # (Auto) 0.3 Eosinophils # (Auto) 0.0 Basophils # (Auto) 0.0 CBC Comment AUTO DIFF Differential Comment AUTO DIFF CONFIRMED Platelet Estimate LOW Platelet Morphology Comment NORMAL Blood Urea Nitrogen 18 Creatinine 1.15 Random Glucose 127 Total Protein 5.7 Albumin 3.0 Calcium Level 8.4 Alkaline Phosphatase 75 Aspartate Amino Transf (AST/SGOT) 41 Alanine Aminotransferase (ALT/SGPT) 35 Total Bilirubin 1.4 Sodium Level 139 Potassium Level 4.3 Chloride Level 107 Carbon Dioxide Level 25.5 Anion Gap 7 Estimat Glomerular Filtration Rate 60 Radiology Last 48 hours Impressions Abdomen X-Ray 05/27/17 0531 Signed Impressions: Service Date/Time: Saturday, May 27, 2017 05:36 - CONCLUSION: 1. Mild ileus. Vamshi Ellis MD Abdomen/Pelvis CT 05/27/17 0350 Signed Impressions: Service Date/Time: Saturday, May 27, 2017 03:59 - CONCLUSION: 1. Right-sided inguinal hernia containing bowel, probably the cause of partial or early small bowel obstruction. 2. Right sided ventral area containing a partial loop of colon which does not appear to result in obstruction. 3. Small right-sided pleural effusion improved from December 2016. 4. Postoperative partial resection right lobe liver. Vamshi Ellis MD Abdomen: Other (incisional tenderness, dressing scant blood) A/P Assessment and Plan 86 year old male s/p RIGHT inguinal hernia repair open POD 1 PLAN Reg diet pain control oob d/c planning f/u with Dr. Warner 1 week Adeel Melgar MD May 28, 2017 10:06
[2017-05-28 12:00] VITALS: BP 122/58; PULSE 64; RESP 17; TEMP 95.8; O2SAT 95
[2017-05-28] MEDS: FAMOTIDINE 20 MG/2 ML VIAL IV PUSH SCH (12:32)
--- NOTE | 2017-05-28 17:03 | MP ---
cc: YOSVANY WARNER M.D., DAVID DATE OF SURGERY: 05/27/2017. PREOPERATIVE DIAGNOSIS: Previously incarcerated right inguinal hernia, recurrent. POSTOPERATIVE DIAGNOSIS: Previously incarcerated right inguinal hernia, recurrent. OPERATIVE PROCEDURE PERFORMED: Right inguinal hernia repair with mesh. SURGEON: Yosvany Warner MD. ANESTHESIA: General endotracheal anesthesia. ESTIMATED BLOOD LOSS: Less than 10 mL. FLUIDS: 1000 mL crystalloid. COMPLICATIONS None. DRAINS: None. SPECIMEN: None. FINDINGS: A previously incarcerated right inguinal hernia, recurrent. DESCRIPTION OF THE PROCEDURE IN DETAIL: The patient was seen in the G-Pod and discussion was had with the patient and Dr. Mickey Loyola, his neurologist about his condition. As the hernia had previously been reduced earlier today, the patient was pain-free at this time and had no further emesis. He was taken to the operating room and placed on the operating room table in the supine position. After an adequate level of general endotracheal anesthesia was achieved, the groin and genitals were prepped and draped. A time out was taken confirming the correct patient, site and procedure to be performed. The skin and subcutaneous tissue was infiltrated with local anesthetic and an incision made through the patient's previous incision. Dissection was carried down to the external oblique fascia where further subfascial injections were made with local anesthetic. Silver wire was removed from this patient as it appeared that he had a likely Madhavi or Bassini type repair previously performed. The hernia sac was identified and the spermatic cord structures brought up on a [place] drain. The hernia sac was dissected off the spermatic cord structures. The hernia sac was inverted back into the abdominal cavity after dissecting back to the internal ring. The external oblique fascia was opened in the direction of its fibers and the underlying tissue swept free with sharp dissection and electrocautery. Care was taken to avoid the iliohypogastric nerve as much as possible and minimal dissection was accomplished around this. A 3 x 6 inch piece of Atrium mesh was brought up and placed into the hernia defect. The mesh was transfixed to the pubic tubercle with 2-0 Prolene suture which was then run along the shelving edge of the inguinal ligament to complete the lateral edge of the repair. The mesh was slit longitudinally to allow for egress of the cord structures and interrupted 2-0 Prolene sutures were placed medially with care taken not to place any sutures near the iliohypogastric nerve. The mesh was trimmed to size to fit the defect. The medial leaf of mesh was brought over the lateral leaf of mesh and fixed to the inguinal ligament with 2-0 Prolene sutures x3. This allowed for egress of the cord structures but was small enough to minimize risk of recurrence. When this was completed, remaining local anesthetic was injected into the transversalis fascia and subcutaneous tissues. The external oblique fascia was closed with a running 3-0 Vicryl suture. The skin was outside the wound was reapproximated with interrupted 3-0 Vicryl and the skin closed with 5-0 PDS in a running subcuticular fashion. The wound was dressed with Telfa and Tegaderm, the patient was extubated and taken back to the recovery room in stable condition. He tolerated the procedure well. MD BRUNA Kessler/ZHANE /7:07 PM /4:44 PM
[2017-06-07] MEDS ORDERED: ALPR.25 PO (19:36)
== END 2017-05-28 13:12 | disposition home or self-care (01) ==
LOC: NEPE 03:47 → NEDA 06:24 → NEPGCP 09:51 → N07B 17:06 → N07A 19:54
PROVIDERS: ADMIT Family Medicine; ATTEND Family Medicine
DX: K40.31 Unilateral inguinal hernia, with obstruction, without gangrene, recurrent (principal); I10 Essential (primary) hypertension; F41.9 Anxiety disorder, unspecified; D69.6 Thrombocytopenia, unspecified; D64.9 Anemia, unspecified; R94.31 Abnormal electrocardiogram [ECG] [EKG]; Z85.038 Personal history of other malignant neoplasm of large intestine; G70.00 Myasthenia gravis without (acute) exacerbation; K21.9 Gastro-esophageal reflux disease without esophagitis; N40.0 Benign prostatic hyperplasia without lower urinary tract symptoms; H91.90 Unspecified hearing loss, unspecified ear; Z85.05 Personal history of malignant neoplasm of liver; Z85.46 Personal history of malignant neoplasm of prostate; Z90.79 Acquired absence of other genital organ(s); Z90.49 Acquired absence of other specified parts of digestive tract; Z87.442 Personal history of urinary calculi
CPT/HCPCS: 00830; 49520; 74020; 74176; 80053; 81001; 82550; 83605; 83690; 84484; 85025; 85610; 85730; 93005; 96361; 96365; 96372; 96375; 96376; 99285; C1781; G0378; J0131; J1100; J1644; J2270; J2405; J2543; J3480; J7030; J7120

== ENCOUNTER 2017-06-10 11:40 | Inpatient (IN) | payer MEDICARE ==
[~2017-06-10] VITALS: Ht 182.9 cm; Wt 69.3 kg
[2017-06-10] VITALS (9 sets, daily range): BP systolic 126–181; BP diastolic 69–79; PULSE 61–103; RESP 14–18; TEMP 97.8–98.4; O2SAT 96–100
[~2017-06-10 11:40] MED LIST changes: +NORC5TAB PO; -RANI150T PO
[2017-06-10 12:39] LABS: AUTOMATED NEUTROPHIL # 3.1 TH/MM3 (1.8-7.7); BASOPHIL % 0.6 % (0.0-2.0); EOSINOPHIL % 1.1 % (0.0-4.0); HEMO FLAGS DIFF FINAL; LYMPH % 8.9 % (9.0-44.0); LYMPHOCYTE # 0.3 TH/MM3 (1.0-4.8); MEAN CELL VOLUME 92.7 FL (80.0-100.0); MEAN CORPUSCULAR HEMOGLOBIN 30.5 PG (27.0-34.0); MEAN CORPUSCULAR HGB CONC 32.9 % (32.0-36.0); MONO % 7.7 % (0.0-8.0); NEUT % 81.7 % (16.0-70.0); PLATELET COUNT 161 TH/MM3 (150-450); RED BLOOD COUNT 3.78 MIL/MM3 (4.50-5.90); RED CELL DISTRIBUTION WIDTH 14.3 % (11.6-17.2); WHITE BLOOD COUNT 3.8 TH/MM3 (4.0-11.0)
[2017-06-10 12:56] LABS: ANION GAP 4 MEQ/L (5-15); AST (GOT) 14 U/L (15-37); BICARBONATE 29.6 MEQ/L (21.0-32.0); BLOOD UREA NITROGEN 21 MG/DL (7-18); CHLORIDE 105 MEQ/L (98-107); GLOMERULAR FILTRATION RATE 68 ML/MIN (>89); SODIUM (NA) 139 MEQ/L (136-145)
[2017-06-10 12:57] LABS: ALT (GPT) 14 U/L (12-78); PROTHROMBIN TIME - PATIENT 11.4 SEC (9.8-11.6)
[2017-06-10 12:59] LABS: ALKALINE PHOSPHATASE 83 U/L (45-117); TOTAL BILIRUBIN ADULT 1.1 MG/DL (0.2-1.0)
[2017-06-10] MEDS ORDERED: SODIUM CHLORIDE 0.9% FLUSH 10 ML FLUSH IV FLUSH PRN (14:00)
--- NOTE | 2017-06-10 14:03 | PD ---
HPI Chief Complaint: Medical Clearance Time Seen by Provider: 12:03 Travel History International Travel<30 days: No Contact w/Intl Traveler<30days: No Traveled to known affect area: No History of Present Illness HPI This is an 86-year-old male who presents to the emergency department with increasing difficulty swallowing and difficulty speaking, constant described as difficulty phonating, moderate severity, with no associated difficulty walking or breathing for 3 days. He says this feels similar to when he said myasthenia exacerbations in the past. He follows with Dr. Loyola. In the past he's required plasmapheresis. He says he had a surgery on a hernia 2 weeks ago and he thinks that may have prompted his symptoms. PFSH Past Medical History Anemia: Yes Arthritis: Yes Asthma: No Autoimmune Disease: Yes (MYASTHENIA GRAVIS) Blood Disorders: No Anxiety: No Depression: No Heart Rhythm Problems: No Cancer: Yes (COLON, PROSTATE AND LIVER) Cardiovascular Problems: No High Cholesterol: Yes Chemotherapy: Yes Chest Pain: No Congestive Heart Failure: No COPD: No Diabetes: No Diminished Hearing: Yes (BILATERAL HEARING AIDS) Endocrine: No Gastrointestinal Disorders: Yes (COLON/LIVER CA) GERD: No Genitourinary: Yes (PROSTATE CA) Hiatal Hernia: No Hypertension: No Immune Disorder: Yes (MYASTHENIA GRAVIS) Implanted Vascular Access Dvce: No Kidney Stones: Yes (1983) Musculoskeletal: Yes Neurologic: No Psychiatric: No Reproductive: No Respiratory: No Immunizations Current: Yes Radiation Therapy: Yes Renal Failure: No Sleep Apnea: No Thyroid Disease: No Ulcer: No Past Surgical History Abdominal Surgery: Yes (COLON RESECTION DUE TO COLON CA 1987 AND 2007) Eye Surgery: Yes (L EYE SURGERY on retina) Pacemaker: No Thoracic Surgery: Yes (LIVER RESECTION 2000) Tonsillectomy: Yes Other Surgery: Yes (HERNIA REPAIR JUN 2001) Social History Alcohol Use: No Tobacco Use: No Substance Use: No Allergies-Medications (Allergen,Severity, Reaction): Coded Allergies: Sulfa (Sulfonamide Antibiotics) (Unverified Allergy, Severe, Flushing, ) lorazepam (Unverified Allergy, Intermediate, Psychosis, 06/10/17) prochlorperazine (Unverified Allergy, Unknown, JITTERY, 06/10/17) Reported Meds & Prescriptions Reported Meds & Active Scripts Active Xanax (Alprazolam) 0.25 Mg Tab 0.25 Mg PO DAILY PRN Reported Docusate Sodium 100 Mg Cap 100 Mg PO BID Mestinon (Pyridostigmine [place]) 60 Mg Tab 120 Mg PO TID Ensure Plus (Nutritional Supplements) 1 Liq Liq 1 Can PO DAILY Cyanocobalamin Inj (Cyanocobalamin) 1,000 Mcg/Ml Inj 1,000 Mcg IM MONTHLY Vitamin D3 (Cholecalciferol) 2,000 Unit Cap 2,000 Units PO DAILY Tums (Calcium Carbonate (Antacid)) 500 Mg Chew 1,000 Mg CHEW BID PRN Review of Systems Except as stated in HPI: all other systems reviewed are Neg Physical Exam Narrative GENERAL:Well appearing, no acute distress SKIN: Focused skin assessment warm and dry. HEAD: Atraumatic. Normocephalic. EYES: Pupils equal and round. No injection or drainage. ENT: Moist mucous membranes NECK: Trachea midline. CARDIOVASCULAR: Regular rate and rhythm. No murmur appreciated. RESPIRATORY: Clear to auscultation. Breath sounds equal bilaterally. GASTROINTESTINAL: Abdomen soft, non-tender, nondistended. Well healing incisional scar in the right lower quadrant. MUSCULOSKELETAL: No obvious deformities. NEUROLOGICAL: Awake and alert. No obvious cranial nerve deficits. Bulbar weakness appreciated, normal appearing respiratory effort, 5/5 strength bilateral upper and lower extremities. PSYCHIATRIC: Appropriate mood and affect; insight and judgment normal. Data Data Last Documented VS Vital Signs Date Time Temp Pulse Resp B/P (MAP) Pulse Ox O2 Delivery O2 Flow Rate FiO2 06/10/17 12:20 98 21 06/10/17 11:41 98.4 71 14 155/73 (100) Orders Orders Complete Blood Count With Diff (06/10/17 12:10) Comprehensive Metabolic Panel (06/10/17 12:10) ^ Insert Iv (06/10/17 12:10) Prothrombin Time / Inr (Pt) (06/10/17 12:10) Act Partial Throm Time (Ptt) (06/10/17 12:10) Resp Pft Bedside (06/10/17 ) Ct Brain W/O Iv Contrast(Rout) (06/10/17 ) Labs Laboratory Tests Test 06/10/17 12:27 White Blood Count 3.8 TH/MM3 Red Blood Count 3.78 MIL/MM3 Hemoglobin 11.5 GM/DL Hematocrit 35.0 % Mean Corpuscular Volume 92.7 FL Mean Corpuscular Hemoglobin 30.5 PG Mean Corpuscular Hemoglobin Concent 32.9 % Red Cell Distribution Width 14.3 % Platelet Count 161 TH/MM3 Mean Platelet Volume 7.8 FL Neutrophils (%) (Auto) 81.7 % Lymphocytes (%) (Auto) 8.9 % Monocytes (%) (Auto) 7.7 % Eosinophils (%) (Auto) 1.1 % Basophils (%) (Auto) 0.6 % Neutrophils # (Auto) 3.1 TH/MM3 Lymphocytes # (Auto) 0.3 TH/MM3 Monocytes # (Auto) 0.3 TH/MM3 Eosinophils # (Auto) 0.0 TH/MM3 Basophils # (Auto) 0.0 TH/MM3 CBC Comment DIFF FINAL Differential Comment Prothrombin Time 11.4 SEC Prothromb Time International Ratio 1.0 RATIO Activated Partial Thromboplast Time 26.0 SEC Blood Urea Nitrogen 21 MG/DL Creatinine 1.03 MG/DL Random Glucose 110 MG/DL Total Protein 6.8 GM/DL Albumin 3.7 GM/DL Calcium Level 9.4 MG/DL Alkaline Phosphatase 83 U/L Aspartate Amino Transf (AST/SGOT) 14 U/L Alanine Aminotransferase (ALT/SGPT) 14 U/L Total Bilirubin 1.1 MG/DL Sodium Level 139 MEQ/L Potassium Level 4.0 MEQ/L Chloride Level 105 MEQ/L Carbon Dioxide Level 29.6 MEQ/L Anion Gap 4 MEQ/L Estimat Glomerular Filtration Rate 68 ML/MIN MDM Medical Decision Making Medical Screen Exam Complete: Yes Emergency Medical Condition: Yes Interpretation(s) Mild leukopenia Mild anemia Electrolytes are reassuring Coags are normal Differential Diagnosis Myasthenia crisis, respiratory insufficiency, stroke, intracranial hemorrhage Narrative Course This is an 86-year-old male who presents to the emergency department with a myasthenia crisis. He is having increasing bulbar weakness with difficulty speaking and difficulty swallowing. NIF is -40 and vital capacity is 1.2 L which is reassuring. Labs are unremarkable. I spoke to Dr. Loyola who said the patient is quite complex. He has a history of intracranial hemorrhage in the setting of plasmapheresis in the past. He wanted to defer to the on-call neurologist for further management and he thought it might be reasonable to talk to hematology as well given the patient's prior bleed. Patient will be admitted for further management and neurology consultation. Physician Communication Physician Communication Discussed with Dr. Loyola neurology and on-call resident physician Diagnosis Primary Impression: Myasthenia gravis with acute exacerbation Admitting Information Admitting Physician Requests: Admit Diane Mathew MD Jun 10, 2017 14:03
--- NOTE | 2017-06-10 14:19 | RADRPT ---
EXAM DATE/TIME: 06/10/2017 13:35 [place] COMPARISON: CT BRAIN W/O CONTRAST, October 12, 2016, 22:13. INDICATIONS : Slurred speech along with difficulty swallowing. RADIATION DOSE: 56.35 CTDIvol (mGy) MEDICAL HISTORY : Carcinoma, prostate. Carcinoma, colon. Myasthenia gravis SURGICAL HISTORY : Hernia repair ENCOUNTER: Initial ACUITY: 1 day PAIN SCALE: 0/10 LOCATION: cranial TECHNIQUE: Multiple contiguous axial images were obtained of the head. Using automated exposure control and adj ustment of the mA and/or kV according to patient size, radiation dose was kept as low as reasonably a chievable to obtain optimal diagnostic quality images. DICOM format image data is available electro nically for review and comparison. FINDINGS: CEREBRUM: Atrophy. Confluent periventricular low attenuation change involving both cerebral hemispheres and The ventricles are normal for age. No evidence of midline shift, mass lesion, hemorrhage or acute infar ction. No extra-axial fluid collections are seen. POSTERIOR FOSSA: The cerebellum and brainstem are intact. The 4th ventricle is midline. The cerebellopontine angle i s unremarkable. EXTRACRANIAL: The visualized portion of the orbits is intact. SKULL: The calvaria is intact. No evidence of skull fracture. CONCLUSION: 1. No acute intracranial abnormality. 2. Atrophy and chronic small vessel ischemic change. Agustin Guajardo Jr., MD on June 10, 2017 at 14:15 Board Certified Radiologist. This report was verified electronically.
[2017-06-10] MEDS ORDERED: BISACODYL 10 MG SUPP RECTAL PRN (14:30)
[2017-06-10] MEDS ORDERED: LACTULOSE SYRUP 20 GM/30 ML CUP PO PRN (14:30)
[2017-06-10] MEDS ORDERED: ACETAMINOPHEN 325 MG TAB PO PRN ×2 (14:30→22:00)
[2017-06-10] MEDS ORDERED: SENNOSIDES 8.6 MG TAB PO PRN (14:30)
[2017-06-10] MEDS ORDERED: MAGNESIUM HYDROXIDE SUSP 30 ML CUP PO PRN (14:30)
[2017-06-10] MEDS: SODIUM CHLOR 0.9% 1000 ML INJ 1,000 ML IV SCH ×2 (15:06→21:08)
--- NOTE | 2017-06-10 15:15 | HHI.HP ---
[facility] Service Family Medicine Primary Care Physician Chris Doherty MD Admission Diagnosis myasthenia crisis Diagnoses: International Travel<30 Days: No Contact w/Intl Traveler<30days: No Known Affected Area: No History of Present Illness 86-year-old male with past history of colon cancer (treated), hyperlipidemia, prostate cancer (treated), recurrent dysphagia, myasthenia gravis who presented for dysphagia and slurred speech. Patient states he's had difficulty swallowing foods and liquids for the past couple days. This is how his myasthenia usually presents itself. He has experienced this several times in the past and it usually resolves. However, he reports his mentioned he may have slurred speech, he calls neurologist (Dr. Loyola) who told him to come into the hospital. He denies headache, blurred vision, double vision, eye pain, weakness , numbness, tingling, trouble walking. Denies any recent sickness. No nausea, vomiting, fever, chills, cough, shortness of breath, abdominal pain, chest pain , change in bowel or bladder habits. Review of Systems Constitutional: COMPLAINS OF: Change in appetite, DENIES: Diaphoretic episodes , Fatigue, Fever, Weight gain, Chills, Dizziness, Night Sweats Endocrine: DENIES: Heat/cold intolerance, Polydipsia, Polyuria, Polyphagia Eyes: DENIES: Blurred vision, Diplopia, Eye inflammation, Eye pain, Vision loss , Photosensitivity, Double Vision Ears, nose, mouth, throat: DENIES: Tinnitus, Hearing loss, Vertigo, Nasal discharge, Throat pain, Hoarseness, Running Nose, Epistaxis Respiratory: DENIES: Apneas, Cough, Snoring, Wheezing, Sputum production, Shortness of breath Cardiovascular: DENIES: Chest pain, Palpitations, Lower Extremity Edema Gastrointestinal: COMPLAINS OF: Difficulty Swallowing (Food and liquid), DENIES : Abdominal pain, Black stools, Bloody stools, Constipation, Diarrhea, Nausea, Vomiting, Anorexia Genitourinary: DENIES: Urinary frequency, Urgency, Dysuria Musculoskeletal: DENIES: Joint pain, Muscle aches Integumentary: DENIES: Abnormal pigmentation, Pruritus, Rash Hematologic/lymphatic: DENIES: Bruising, Lymphadenopathy Immunologic/allergic: DENIES: Eczema Neurologic: COMPLAINS OF: Speech Problems, DENIES: Abnormal gait, Headache, Localized weakness, Paresthesias, Tremor, Poor Balance Psychiatric: DENIES: Anxiety, Confusion, Depression Past Family Social History Past Medical History Copied PFSH from recent outpatient visit, verified information with patient at admission - ? 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 The left frontal parietal subdural hematoma measured 10 mm in greatest width in the right posterior parietal subdural hematoma measured 6 mm in greatest width. These findings were stable on repeat CT during the hospitalization. A brain MRI showed atrophy with marked periventricular white matter changes. A brain MRA was negative. A magnetic resonance venogram was negative for venous thrombosis. - Fall (tripped over parking curb; sustained a right humeral neck fracture - Past Surgical History - partial colectomy 1987 and 2007 - partial liver resection 2000 - bilateral cataract extraction - TURP - retinal surgery L. 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 SKIN: No rashes, ecchymoses or lesions. Cool and dry. HEAD: Atraumatic. Normocephalic. No temporal or scalp tenderness. EYES: Pupils equal round and reactive. Extraocular motions intact. No scleral icterus. No injection or drainage. ENT: Nose without bleeding, purulent drainage or septal hematoma. Throat without erythema, tonsillar hypertrophy or exudate. Uvula midline. Airway patent. NECK: Trachea midline. No JVD or lymphadenopathy. Supple, nontender, no meningeal signs. CARDIOVASCULAR: Regular rate and rhythm without gallops, or rubs. Soft 1/6 systolic murmur. RESPIRATORY: Clear to auscultation. Breath sounds equal bilaterally. No wheezes , rales, or rhonchi. GASTROINTESTINAL: Abdomen soft, non-tender, nondistended. No hepato-splenomegaly , or palpable masses. No guarding. Recent surgical scar in right inguinal area from recent hernia repair, no erythema/swelling/tenderness/discharge, well healing. MUSCULOSKELETAL: Extremities without clubbing, cyanosis, or edema. No joint tenderness, effusion, or edema noted. No calf tenderness. NEUROLOGICAL: Awake and alert. Cranial nerves II through XII intact. Motor and sensory grossly within normal limits. Five out of 5 muscle strength in all muscle groups. Speech slow, muffled, consistent with hearing impairment. No obvious slurring. Laboratory Laboratory Tests Test 06/10/17 12:27 White Blood Count 3.8 Red Blood Count 3.78 Hemoglobin 11.5 Hematocrit 35.0 Mean Corpuscular Volume 92.7 Mean Corpuscular Hemoglobin 30.5 Mean Corpuscular Hemoglobin Concent 32.9 Red Cell Distribution Width 14.3 Platelet Count 161 Mean Platelet Volume 7.8 Neutrophils (%) (Auto) 81.7 Lymphocytes (%) (Auto) 8.9 Monocytes (%) (Auto) 7.7 Eosinophils (%) (Auto) 1.1 Basophils (%) (Auto) 0.6 Neutrophils # (Auto) 3.1 Lymphocytes # (Auto) 0.3 Monocytes # (Auto) 0.3 Eosinophils # (Auto) 0.0 Basophils # (Auto) 0.0 CBC Comment DIFF FINAL Differential Comment Prothrombin Time 11.4 Prothromb Time International Ratio 1.0 Activated Partial Thromboplast Time 26.0 Blood Urea Nitrogen 21 Creatinine 1.03 Random Glucose 110 Total Protein 6.8 Albumin 3.7 Calcium Level 9.4 Alkaline Phosphatase 83 Aspartate Amino Transf (AST/SGOT) 14 Alanine Aminotransferase (ALT/SGPT) 14 Total Bilirubin 1.1 Sodium Level 139 Potassium Level 4.0 Chloride Level 105 Carbon Dioxide Level 29.6 Anion Gap 4 Estimat Glomerular Filtration Rate 68 Result Diagram: 06/10/177 06/10/171226 Caprini VTE Risk Assessment Caprini VTE Risk Assessment: Mod/High Risk (score >= 2) Caprini Risk Assessment Model Point Value = 1 Point Value = 2 Point Value = 3 Point Value = 5 Age 41-60 Minor surgery BMI > 25 kg/m2 Swollen legs Varicose veins or History of unexplained or recurrent spontaneous Oral contraceptives or hormone replacement Sepsis (< 1 month) Serious lung disease, including pneumonia (< 1 month) Abnormal pulmonary function Acute myocardial infarction Congestive heart failure (< 1 month) History of inflammatory bowel disease Medical patient at bed rest Age 61-74 Arthroscopic surgery Major open surgery (> 45 min) Laparoscopic surgery (> 45 min) Malignancy Confined to bed (> 72 hours) Immobilizing plaster cast Central venous access Age >= 75 History of VTE Family history of VTE Factor V Leiden Prothrombin [id number] Lupus anticoagulant Anticardiolipin antibodies Elevated serum homocysteine Heparin-induced thrombocytopenia Other congenital or acquired thrombophilia Stroke (< 1 month) Elective arthroplasty Hip, pelvis, or leg fracture Acute spinal cord injury (< 1 month) Prophylaxis Regimen Total Risk Factor Score Risk Level Prophylaxis Regimen 0-1 Low Early ambulation 2 Moderate Order ONE of the following: *Sequential Compression Device (SCD) *Heparin 5000 units SQ BID 3-4 Higher Order ONE of the following medications: *Heparin 5000 units SQ TID *Enoxaparin/Lovenox 40 mg SQ daily (WT < 150 kg, CrCl > 30 mL/min) *Enoxaparin/Lovenox 30 mg SQ daily (WT < 150 kg, CrCl > 10-29 mL/min) *Enoxaparin/Lovenox 30 mg SQ BID (WT < 150 kg, CrCl > 30 mL/min) AND/OR *Sequential Compression Device (SCD) 5 or more Highest Order ONE of the following medications: *Heparin 5000 units SQ TID (Preferred with Epidurals) *Enoxaparin/Lovenox 40 mg SQ daily (WT < 150 kg, CrCl > 30 mL/min) *Enoxaparin/Lovenox 30 mg SQ daily (WT < 150 kg, CrCl > 10-29 mL/min) *Enoxaparin/Lovenox 30 mg SQ BID (WT < 150 kg, CrCl > 30 mL/min) AND *Sequential Compression Device (SCD) Assessment and Plan Assessment and Plan 86-year-old male with past history of colon cancer (treated), hyperlipidemia, prostate cancer (treated), recurrent dysphagia, myasthenia gravis who presented for dysphagia and slurred speech. Currently without other neurological neurological deficits. Head CT without acute intracranial abnormality. Patient personally deferred MRI at admission. Problem List: (1) Dysarthria ICD Codes: R47.1 - Dysarthria and anarthria Status: Acute Plan: Dysarthria and dysphasia similar to past episodes of myasthenia flareups. CT without acute process. Patient deferred MRI at admission. Self- reported slurred speech, not overtly recognizable on exam, otherwise no focal neurological deficits. * Neuro checks every 4 * Neurology consulted, appreciate recommendations. * Hematology (Dr. Garza) consulted, reports that he has had plasmapheresis per this body bumper * Speech swallow study * Continue myasthenia treatment as below * Monitor for signs of stroke (2) Myasthenia gravis ICD Codes: G70.00 - Myasthenia gravis Status: Chronic Plan: Chronic myasthenia gravis * Home medications -Pyridostigmine 60 mg by mouth 3 times a day * Appreciate neurology recommendations Permanent Comment: Dysphagia; elevated acetycholine recept bind AB elevated, striated muscle ab + Last Edited By: Chris Doherty on Aug 26, 2014 13:53 (3) Bicytopenia ICD Codes: D75.89 - Other specified diseases of blood and blood-forming organs Plan: On admission WBC count 3.8, RBC 3.78 * Follow-up peripheral blood smear * Currently without signs of infection (4) FEN Plan: Fluids * Maintenance fluids 100 mL per hour Electrolytes * Monitor and replete as needed Nutrition * Nothing by mouth until swallow study Prophylaxis * GI prophylaxis when necessary * SCDs, chemical prophylaxis following bleed rule out Physician Certification 2 Midnight Certification Type: Admission for Inpatient Services Order for Inpatient Services The services are ordered in accordance with Medicare regulations or non- Medicare payer requirements, as applicable. In the case of services not specified as inpatient-only, they are appropriately provided as inpatient services in accordance with the 2-midnight benchmark. Estimated LOS (days): 2 2 days is the estimated time the patient will need to remain in the hospital, assuming treatment plan goals are met and no additional complications. Post-Hospital Plan: Home Yosvany Herbert MD R1 Jun 10, 2017 15:15
--- NOTE | 2017-06-10 16:53 | MB ---
cc: OLIVER BARCENAS M.D. DATE OF CONSULTATION: 06/10/2017 REASON FOR CONSULTATION: Patient is a 86-year-old seen in neurological consultation regards to exacerbation of myasthenia. He has had a diagnosis of myasthenia gravis since July 2014 and he follows with Dr. Mickey Loyola for neurological care. He has had some flare-ups intermittently. Apparently in August this year he had some more severe symptoms and he was treated with IVIG which did not seem to work and eventually he was given plasmapheresis which may have helped but after that he had a couple of falls and he reportedly had some intracranial bleed, unclear if related to the falls or the plasmapheresis. There is a history of colon, prostate and liver cancer. He had hernia surgery a couple of weeks ago. He normally takes Mestinon 2 tablets of 60 mg three times a day before breakfast, before lunch and before dinner. He has taken higher dose of Mestinon but the cause some loose bowels which were controlled with Imodium. He has taken steroids in the past and this worked on one occasion but may have not worked in some other occasions. PHYSICAL EXAMINATION: IN GENERAL: On exam he is alert pleasant, oriented and mentally appears bright. Ocular movements were full and there is no double vision. Visual renner full. No facial weakness. Speech is mild to moderately dysarthric and he is having difficulty with swallowing. The symptoms started 2 or 3 days ago. 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 He raises the legs and opposes resistance. Reflexes were present throughout, 1+. Plantar responses were flexor. LABORATORY DATA WBC 3.8, hemoglobin 11.5, platelets 161. Sodium, potassium normal BUN 21, creatinine 1.03, glucose 110. RADIOLOGIC: The CT brain negative for acute process. ASSESSMENT: Myasthenia gravis exacerbation. He has been admitted. PLAN: I have discussed at options with the patient. He has agreed to start some steroids for the time-being and I will change his Mestinon dose to with total of 90 mg every 4 hours between 06:00 a.m. and 06:00 p.m. I will give him Mestinon time span at 10:00 p.m. Depending on response to these will consider another course of IVIG as well as plasmapheresis. I will follow the neurological course. Thank you for asking us to assist in his care. MD JUSTINE Johnson/dominga /3:30 PM /4:38 PM
[2017-06-10] MEDS ORDERED: LOPERAMIDE HCL 2 MG CAP PO PRN (17:30)
[2017-06-10] MEDS: methylPREDNISolone SOD SUCC 40 MG/1 ML VIAL IV PUSH SCH ×2 (17:37→23:10)
[2017-06-10] MEDS ORDERED: PYRIDOSTIGMINE BROMIDE 60 MG TAB PO SCH (18:00)
[2017-06-10] MEDS: PYRIDOSTIGMINE BROMIDE 60 MG TAB PO SCH ×2 (18:07→21:08)
[2017-06-10] MEDS ORDERED: PILL SPLITTER OTHER PRN (18:45)
[2017-06-10] MEDS: DOCUSATE SODIUM 50 MG/SENNA 8.6 MG TAB PO SCH (21:08)
[2017-06-10] MEDS: SODIUM CHLORIDE 0.9% FLUSH 10 ML FLUSH IV FLUSH SCH (21:08)
[2017-06-10] MEDS ORDERED: ENALAPRILAT 1.25 MG/ML VIAL IV PUSH PRN (22:00)
[2017-06-10] MEDS: ALPRAZolam 0.25 MG TAB PO PRN (23:08)
--- NOTE | 2017-06-10 23:30 | MB ---
cc: RACHEL GARCIA M.D. DATE OF CONSULTATION 06/10/17 REASON FOR CONSULTATION Consult requested by family practice resident to arrange for plasmapheresis for myasthenia gravis. HISTORY OF PRESENT ILLNESS Naren is a pleasant 86-year-old male. He is well-known to me for prostate cancer and colon cancer. He also has myasthenia gravis. He has multiple exacerbation and has been previously treated with plasmapheresis successfully. His usual presentation of myasthenia gravis is slurring of speech and difficulty swallowing. The patient recently underwent surgery for inguinal hernia. The patient stated that he tolerated the surgery well. However, after 1 week of that surgery he started having problem with his speech. It was difficult for him to talk and his noticed that his speech was getting slurred. He also noticed difficulty in swallowing which usually happens when he has exacerbation of myasthenia gravis. The patient's called his neurologist, Dr. Mickey Loyola, who advised the patient to come to the emergency room to initiate plasmapheresis. The patient admitted to the hospital. I have been asked to see him for the plasmapheresis. The patient had a CAT scan of the brain which did not show any significant findings. The patient was recently evaluated by neurologist, Dr. Crawford. Dr. Crawford recommended to hold off on the plasmapheresis for now. He is increasing his Mestinon dose and also wants to treat him the steroid. He advised the patient not to start the plasmapheresis at this time. The rest of the review of systems is negative. PAST MEDICAL HISTORY Prostate cancer diagnosed in June of 2011. He has bone metastasis and has been on intermittent Lupron therapy. Colon cancer first diagnosed in 1987, underwent surgery and he had a stage II colon cancer. 12 years later he was found to have solitary liver metastasis in 1999. He underwent resection of the liver metastasis followed by 5-FU and leucovorin chemotherapy completed in 2000. Then in 2007 he was found to have new primary colon cancer and underwent surgery again. All the lymph nodes were negative. He did not require any adjuvant treatment. He also has developed pancytopenia which is due to the B12 deficiency and has been on B12 shots. He also had required iron infusion intermittently. Anxiety disorder, arthritis, hypercholesterolemia, kidney stones, myasthenia gravis. PAST SURGICAL HISTORY Carpal tunnel surgery, cataract. Colon resection x2, first time in 1987 and the second time is 2007. Skin cancer surgery, colonoscopy. Liver resection for solitary liver metastasis. Incisional hernia repair and inguinal hernia repair. ALLERGIES COMPAZINE AND SULFA. MEDICATIONS 1. Xanax. 2. Lupron. 3. Mestinon. FAMILY HISTORY Noncontributory. SOCIAL HISTORY The patient does not smoke cigarettes, does not drink alcohol. PHYSICAL EXAMINATION GENERAL: This is a well-developed elderly frail white male in no apparent distress. VITAL SIGNS: Temperature 97.8, heart rate is 61, blood pressure 154/72, O2 saturations are 100%. HEAD, EYES, EARS, NOSE, AND THROAT: Pupils equal, round, reactive to light and accommodation, extraocular movements intact. Anicteric. No oral lesions noted. No thrush noted. NECK: Supple. No JVD. No masses noted. LUNGS: Clear. No wheezing, rhonchi, or rales. HEART: Regular rate and rhythm. No murmur heard. ABDOMEN: Soft and nontender. No hepatosplenomegaly. No abnormal bowel sounds. No guarding or rigidity noted. EXTREMITIES: No pedal edema. No cyanosis, no clubbing. NEUROLOGIC: The patient has slurring of speech and difficulty swallowing. SKIN: No bruises or petechiae noted. BREASTS: No masses noted. LYMPH NODES: No cervical, supraclavicular, or axillary lymphadenopathy noted. BACK: There is no spinal tenderness noted. ASSESSMENT 1. Exacerbation of myasthenia gravis. 2. History of colon cancer status post surgery followed by chemotherapy. 3. Prostate cancer on intermittent Lupron therapy. He has stage IV prostate cancer. 4. Mild anemia and leukopenia which is chronic and due to B12 deficiency. 5. B12 deficiency on B12 shots once a month. PLAN I have reviewed his available records and I had an extensive discussion with the patient regarding the exacerbation of myasthenia gravis. I was asked to see him to initiate the plasmapheresis. However, Dr. Crawford, neurologist, was covering for Dr. Mickey Loyola, does not want to initiate plasmapheresis at this time. He wants to try with the medications. He has recommended steroid and increase the Mestinon dose. He is also contemplating to give him IVIG. If the patient does not improve with these measures then probably he would recommend plasmapheresis. The patient has had plasmapheresis in the past on several occasions and he always had a good response. Within the first two or three treatments his symptoms improves . We will discuss with his neurologist regarding the timing of initiating the plasmapheresis. Thank you for asking my opinion. Rae Garcia MD /EVA /10:45 PM /11:06 PM IBAN
[2017-06-11] VITALS (7 sets, daily range): BP systolic 114–169; BP diastolic 56–72; PULSE 56–65; RESP 16–20; TEMP 97.2–98; O2SAT 94–98
[2017-06-11] MEDS: methylPREDNISolone SOD SUCC 40 MG/1 ML VIAL IV PUSH SCH ×3 (05:43→18:36)
[2017-06-11] MEDS: PYRIDOSTIGMINE BROMIDE 60 MG TAB PO SCH ×5 (05:44→22:00)
[2017-06-11] MEDS: DOCUSATE SODIUM 50 MG/SENNA 8.6 MG TAB PO SCH ×2 (07:20→21:00)
[2017-06-11] MEDS: SODIUM CHLORIDE 0.9% FLUSH 10 ML FLUSH IV FLUSH SCH ×2 (07:20→21:00)
[2017-06-11 08:22] LABS: HEMATOCRIT 34.3 % (39.0-51.0); MEAN CELL VOLUME 91.7 FL (80.0-100.0); MEAN CORPUSCULAR HEMOGLOBIN 30.6 PG (27.0-34.0); MEAN CORPUSCULAR HGB CONC 33.3 % (32.0-36.0); PLATELET COUNT 159 TH/MM3 (150-450); RED BLOOD COUNT 3.74 MIL/MM3 (4.50-5.90); RED CELL DISTRIBUTION WIDTH 14.1 % (11.6-17.2); REVIEW FLAG FINAL; WHITE BLOOD COUNT 3.2 TH/MM3 (4.0-11.0)
[2017-06-11 08:43] LABS: BICARBONATE 27.7 MEQ/L (21.0-32.0); POTASSIUM 3.9 MEQ/L (3.5-5.1)
--- NOTE | 2017-06-11 08:53 | HHI.PR ---
Review/Management Daily Summary alert and Ox3 speech better, near normal discussed with RN and start oob activities as tolerated mestinon 90 q 4 from 6 to 10(no timespan available) Subjective Subjective Comments No new events reported No headache feels speech better Active Medications Current Medications Medications (Trade) Dose Ordered Sig/Brock Route Start Time Stop Time Status Last Admin Sodium Chloride 1,000 ml @ 100 mls/hr Q10H IV 06/10/17 13:46 06/10/17 21:08 (NS Flush) 2 ml UNSCH PRN IV FLUSH 06/10/17 14:00 (NS Flush) 2 ml BID IV FLUSH 06/10/17 21:00 06/10/17 21:08 (Tylenol) 650 mg Q4H PRN PO 06/10/17 14:30 (Zofran Inj) 4 mg Q6H PRN IVP 06/10/17 14:30 (Ramona-Colace) 1 tab BID PO 06/10/17 21:00 06/10/17 21:08 (Milk Of Magnesia Liq) 30 ml Q12H PRN PO 06/10/17 14:30 (Senokot) 17.2 mg Q12H PRN PO 06/10/17 14:30 (Dulcolax Supp) 10 mg DAILY PRN RECTAL 06/10/17 14:30 (Lactulose Liq) 30 ml DAILY PRN PO 06/10/17 14:30 (SoluMEDROL INJ) 25 mg Q6H IV PUSH 06/10/17 18:00 06/11/17 05:43 (Imodium) 4 mg BID PRN PO 06/10/17 17:30 (Mestinon) 90 mg 5 TIMES A DAY PO 06/10/17 18:30 06/11/17 08:40 (Pill Splitter) 1 ea UNSCH PRN OTHER 06/10/17 18:45 (Xanax) 0.25 mg DAILY PRN PO 06/10/17 22:00 06/10/17 23:08 (Vasotec Inj) 1.25 mg Q6H PRN IV PUSH 06/10/17 22:00 (Tylenol) 650 mg Q6H PRN PO 06/10/17 22:00 Allergies Allergies Coded Allergies Sulfa (Sulfonamide Antibiotics) (Unverified Allergy, Severe, Flushing, ) lorazepam (Unverified Allergy, Intermediate, Psychosis, 06/10/17) prochlorperazine (Unverified Allergy, Unknown, JITTERY, 06/10/17) Exam I&O / VS Vital Signs Date Time Temp Pulse Resp B/P (MAP) Pulse Ox O2 Delivery O2 Flow Rate FiO2 06/11/17 04:00 97.6 64 18 114/56 (75) 95 06/11/17 00:00 97.8 61 18 122/56 (78) 94 06/10/17 23:23 62 06/10/17 23:02 103 06/10/17 21:14 126/78 (94) Automatic Cuff 06/10/17 20:00 98.2 61 18 181/74 (109) 97 06/10/17 20:00 103 06/10/17 16:00 97.8 61 18 154/72 (99) 100 06/10/17 15:41 06/10/17 15:16 66 16 155/69 (97) 98 Room Air 06/10/17 14:33 98.4 70 18 181/79 (113) 97 Room Air 06/10/17 12:20 98 21 06/10/17 11:41 98.4 71 14 155/73 (100) 96 General: Alert and Oriented, No acute distress Eye: PERRL, EOMI, Normal conjuctiva, Vision unchanged Respiratory: Lungs CTA, Non-labored respirations Cardiology: Normal rate, Intact pulses Musculoskeletal: ROM, Tenderness, Swelling Neurologic: Alert, Oriented, Normal sensory, Normal DTR's, Other Psychiatric: Cooperative, Appropriate mood & affect, Normal judgement Objective Micro and Labs Laboratory Tests Test 06/10/17 12:27 06/11/17 06:05 White Blood Count 3.8 3.2 Red Blood Count 3.78 3.74 Hemoglobin 11.5 11.4 Hematocrit 35.0 34.3 Mean Corpuscular Volume 92.7 91.7 Mean Corpuscular Hemoglobin 30.5 30.6 Mean Corpuscular Hemoglobin Concent 32.9 33.3 Red Cell Distribution Width 14.3 14.1 Platelet Count 161 159 Mean Platelet Volume 7.8 7.9 Neutrophils (%) (Auto) 81.7 Lymphocytes (%) (Auto) 8.9 Monocytes (%) (Auto) 7.7 Eosinophils (%) (Auto) 1.1 Basophils (%) (Auto) 0.6 Neutrophils # (Auto) 3.1 Lymphocytes # (Auto) 0.3 Monocytes # (Auto) 0.3 Eosinophils # (Auto) 0.0 Basophils # (Auto) 0.0 CBC Comment DIFF FINAL Differential Comment Blood Smear Pathologist Review Prothrombin Time 11.4 Prothromb Time International Ratio 1.0 Activated Partial Thromboplast Time 26.0 Blood Urea Nitrogen 21 21 Creatinine 1.03 0.90 Random Glucose 110 113 Total Protein 6.8 Albumin 3.7 Calcium Level 9.4 8.8 Alkaline Phosphatase 83 Aspartate Amino Transf (AST/SGOT) 14 Alanine Aminotransferase (ALT/SGPT) 14 Total Bilirubin 1.1 Sodium Level 139 141 Potassium Level 4.0 3.9 Chloride Level 105 108 Carbon Dioxide Level 29.6 27.7 Anion Gap 4 5 Estimat Glomerular Filtration Rate 68 80 Cameron Crawford MD Jun 11, 2017 08:53
--- NOTE | 2017-06-11 09:49 | HHI.FPPN ---
Subjective Remarks Pt seen and examined this morning. No acute events overnight. He reports feeling well overall. His speech is improving. He denies chest pain, shortness of breath, abdominal pain. He passed swallow evaluation, endorses occasional coughing, non productive. He has no additional acute concerns. (Lanre Quintanilla MD R3) Objective Vitals Vital Signs Date Time Temp Pulse Resp B/P (MAP) Pulse Ox O2 Delivery O2 Flow Rate FiO2 06/11/17 04:00 97.6 64 18 114/56 (75) 95 06/11/17 00:00 97.8 61 18 122/56 (78) 94 06/10/17 23:23 62 06/10/17 23:02 103 06/10/17 21:14 126/78 (94) Automatic Cuff 06/10/17 20:00 98.2 61 18 181/74 (109) 97 06/10/17 20:00 103 06/10/17 16:00 97.8 61 18 154/72 (99) 100 06/10/17 15:41 06/10/17 15:16 66 16 155/69 (97) 98 Room Air 06/10/17 14:33 98.4 70 18 181/79 (113) 97 Room Air 06/10/17 12:20 98 21 06/10/17 11:41 98.4 71 14 155/73 (100) 96 I/O 06/10/17 06/10/17 06/10/17 06/11/17 06/11/17 06/11/17 06:59 14:59 22:59 06:59 14:59 22:59 Output Total 350 ml 0 ml Balance -350 ml 0 ml Output Urine Total 350 ml 0 ml # Bowel Movements 0 (Lanre Quintanilla MD R3) Result Diagram: 06/11/1760406/11/17604 Objective Remarks GENERAL: This is a well-nourished, well-developed patient, in no apparent distress. SKIN: No rashes. Cool and dry. HEAD: Atraumatic. Normocephalic. EYES: Extraocular motions intact. No scleral icterus. No injection or drainage. ENT: Nose without bleeding, purulent drainage or septal hematoma. Uvula midline. Airway patent. NECK: Trachea midline. CARDIOVASCULAR: Regular rate and rhythm without gallops, or rubs. Soft 1/6 systolic murmur. RESPIRATORY: Clear to auscultation. Breath sounds equal bilaterally. No wheezes , rales, or rhonchi. GASTROINTESTINAL: Abdomen soft, non-tender, nondistended. No hepato-splenomegaly , or palpable masses. No guarding. Recent surgical scar in right inguinal area from recent hernia repair, no erythema/swelling/tenderness/discharge, well healing. MUSCULOSKELETAL: Extremities without clubbing, cyanosis, or edema. No joint tenderness, effusion, or edema noted. No calf tenderness. NEUROLOGICAL: Awake and alert. Cranial nerves II through XII intact. Motor and sensory grossly within normal limits. Speech slow, muffled, consistent with hearing impairment. No obvious slurring. (Lanre Quintanilla MD R3) A/P Assessment and Plan 86-year-old male with past history of colon cancer (treated), hyperlipidemia, prostate cancer (treated), recurrent dysphagia, myasthenia gravis who presented for dysphagia and slurred speech. Currently without other neurological neurological deficits. Head CT without acute intracranial abnormality. Patient personally deferred MRI at admission. Discharge Planning Anticipate discharge once pt is back at baseline, pending additional recommendations from neurology and hematology. Likely 1-2 days. (Lanre Quintanilla MD R3) Attending Attestation THIS CASE WAS DISCUSSED WITH THE RESIDENT PHYSICIANS DR René QUINTANILLA,DR Jermaine QUINTANILLA ,DR WALLS AND DR MORENO. I HAVE REVIEWED THE RECORD,PATIENT WAS SEEN AND EXAMINED AND AGREE WITH THE ABOVE NOTE AND PLAN OF CARE WAS DISCUSSED. I HAVE AUTHORIZED THE ORDERS (Terence Doe MD) Problem List: (1) Dysarthria ICD Codes: R47.1 - Dysarthria and anarthria Status: Acute Plan: Improving Dysarthria and dysphasia similar to past episodes of myasthenia flare-ups. CT without acute process. Patient deferred MRI at admission. Self-reported slurred speech, not overtly recognizable on exam, otherwise no focal neurological deficits. Pt reports that his speech is improving. * Neuro checks every 4 * Neurology consulted, appreciate recommendations. * Mestinon 90mg Q4hrs * Consider IVIG and plasmapheresis based on response * Out of bed as tolerated * Hematology, Dr. Garcia, consulted, appreciate recommendations * Continue management of myasthenia as below * Monitor for signs concerning for stroke (2) Myasthenia gravis ICD Codes: G70.00 - Myasthenia gravis Status: Chronic Plan: Chronic myasthenia gravis * Home medications -Pyridostigmine 60 mg by mouth 3 times a day * Appreciate neurology recommendations Permanent Comment: Dysphagia; elevated acetycholine recept bind AB elevated, striated muscle ab + Last Edited By: Chris Doherty on Aug 26, 2014 13:53 (3) Bicytopenia ICD Codes: D75.89 - Other specified diseases of blood and blood-forming organs Plan: On admission WBC count 3.8, RBC 3.78 * Follow-up peripheral blood smear, results pending. * Currently without signs of infection (4) FEN Plan: Fluids * NS 75mls/hr, consider decreasing if pt has sufficient PO intake Electrolytes * Monitor and replete as needed Nutrition * Heart healthy diet, soft Prophylaxis * SCDs, heparin (Lanre Quintanilla MD R3) Lanre Quintanilla MD R3 Jun 11, 2017 09:49 Terence Doe MD Jun 12, 2017 06:14
--- NOTE | 2017-06-11 11:04 | PD.ONC.PN ---
Subjective Subjective Remarks Afebrile overnight. Patient resting in room. Reports speech has improved since yesterday. Swallowing also somewhat improved. Objective Data Date Time Temp Pulse Resp B/P (MAP) Pulse Ox O2 Delivery O2 Flow Rate FiO2 06/11/17 04:00 97.6 64 18 114/56 (75) 95 06/11/17 00:00 97.8 61 18 122/56 (78) 94 06/10/17 23:23 62 06/10/17 23:02 103 06/10/17 21:14 126/78 (94) Automatic Cuff 06/10/17 20:00 98.2 61 18 181/74 (109) 97 06/10/17 20:00 103 06/10/17 16:00 97.8 61 18 154/72 (99) 100 06/10/17 15:41 06/10/17 15:16 66 16 155/69 (97) 98 Room Air 06/10/17 14:33 98.4 70 18 181/79 (113) 97 Room Air 06/10/17 12:20 98 21 06/10/17 11:41 98.4 71 14 155/73 (100) 96 06/11/17 06/11/17 06/11/17 06:59 14:59 22:59 Output Total 0 ml Balance 0 ml Result Diagram: 06/11/1760406/11/17604 Laboratory Results Laboratory Tests Test 06/10/17 12:27 06/11/17 06:05 White Blood Count 3.8 TH/MM3 3.2 TH/MM3 Red Blood Count 3.78 MIL/MM3 3.74 MIL/MM3 Hemoglobin 11.5 GM/DL 11.4 GM/DL Hematocrit 35.0 % 34.3 % Mean Corpuscular Volume 92.7 FL 91.7 FL Mean Corpuscular Hemoglobin 30.5 PG 30.6 PG Mean Corpuscular Hemoglobin Concent 32.9 % 33.3 % Red Cell Distribution Width 14.3 % 14.1 % Platelet Count 161 TH/MM3 159 TH/MM3 Mean Platelet Volume 7.8 FL 7.9 FL Neutrophils (%) (Auto) 81.7 % Lymphocytes (%) (Auto) 8.9 % Monocytes (%) (Auto) 7.7 % Eosinophils (%) (Auto) 1.1 % Basophils (%) (Auto) 0.6 % Neutrophils # (Auto) 3.1 TH/MM3 Lymphocytes # (Auto) 0.3 TH/MM3 Monocytes # (Auto) 0.3 TH/MM3 Eosinophils # (Auto) 0.0 TH/MM3 Basophils # (Auto) 0.0 TH/MM3 CBC Comment DIFF FINAL Differential Comment Blood Smear Pathologist Review Prothrombin Time 11.4 SEC Prothromb Time International Ratio 1.0 RATIO Activated Partial Thromboplast Time 26.0 SEC Blood Urea Nitrogen 21 MG/DL 21 MG/DL Creatinine 1.03 MG/DL 0.90 MG/DL Random Glucose 110 MG/DL 113 MG/DL Total Protein 6.8 GM/DL Albumin 3.7 GM/DL Calcium Level 9.4 MG/DL 8.8 MG/DL Alkaline Phosphatase 83 U/L Aspartate Amino Transf (AST/SGOT) 14 U/L Alanine Aminotransferase (ALT/SGPT) 14 U/L Total Bilirubin 1.1 MG/DL Sodium Level 139 MEQ/L 141 MEQ/L Potassium Level 4.0 MEQ/L 3.9 MEQ/L Chloride Level 105 MEQ/L 108 MEQ/L Carbon Dioxide Level 29.6 MEQ/L 27.7 MEQ/L Anion Gap 4 MEQ/L 5 MEQ/L Estimat Glomerular Filtration Rate 68 ML/MIN 80 ML/MIN Administered Medications Medications (Trade) Dose Ordered Sig/Brock Route PRN Reason Start Time Stop Time Status Last Admin Dose Admin Sodium Chloride 1,000 ml @ 100 mls/hr Q10H IV 06/10/17 13:46 06/10/17 21:08 Sodium Chloride (NS Flush) 2 ml BID IV FLUSH 06/10/17 21:00 06/10/17 21:08 Senna/Docusate Sodium (Ramona-Colace) 1 tab BID PO 06/10/17 21:00 06/10/17 21:08 Methylprednisolone Sodium Succinate (SoluMEDROL INJ) 25 mg Q6H IV PUSH 06/10/17 18:00 06/11/17 05:43 Pyridostigmine [place] (Mestinon) 90 mg 5 TIMES A DAY PO 06/10/17 18:30 06/11/17 08:40 Alprazolam (Xanax) 0.25 mg DAILY PRN PO ANXIETY 06/10/17 22:00 06/10/17 23:08 Objective Remarks GENERAL: Pleasant elderly male sitting up in chair next to bed in nad. SKIN: Warm and dry. HEAD: Normocephalic. EYES: No scleral icterus. No injection or drainage. NECK: Supple, trachea midline CARDIOVASCULAR: Regular rate and rhythm RESPIRATORY: Breath sounds equal bilaterally. No accessory muscle use. GASTROINTESTINAL: Abdomen soft, non-tender, nondistended. EXTREMITIES: No cyanosis MUSCULOSKELETAL: Adequate muscle tone. NEUROLOGICAL: somewhat garbled speech. moving all extremities. Awake, alert, and oriented x3. Assessment/Plan Problem List: (1) Myasthenia gravis ICD Codes: G70.00 - Myasthenia gravis Status: Chronic Plan: 06/11: continue Mestinon and solu-medrol per neurology. will continue to follow. --currently on Mestinon and solu-medrol --Dr. Crawford, neurologist, covering for Dr. Mickey Loyola, does not want to initiate plasmapheresis at this time. wants to try with the medications. Permanent Comment: Dysphagia; elevated acetycholine recept bind AB elevated, striated muscle ab + Last Edited By: Chris Doherty on Aug 26, 2014 13:53 Assessment 86y/o male with myasthenia gravis, admitted for exacerbation history of colon cancer status post surgery followed by chemotherapy. Prostate cancer on intermittent Lupron therapy. He has stage IV prostate cancer. Mild anemia and leukopenia which is chronic and due to B12 deficiency. Attending Statement speech and swallowing was better in the morning but after eating lunch it has gotten worst. Pt will need plasmapheresis. await Neurology input. The exam, history, and the medical decision-making described in the above note were completed with the assistance of the mid-level provider. I reviewed and agree with the findings presented. I attest that I had a [id number] encounter with the patient on the same day, and personally performed and documented my assessment and findings in the medical record. Elly Grimaldo Jun 11, 2017 11:04 Gabriel Garcia MD Jun 11, 2017 19:46
[2017-06-11] MEDS ORDERED: CYANOCOBALAMIN 1000 MCG/ML VIAL IM ONE (14:45)
[2017-06-11] MEDS: SODIUM CHLOR 0.9% 1000 ML INJ 1,000 ML IV SCH (15:48)
[2017-06-11] MEDS: ALPRAZolam 0.25 MG TAB PO PRN (22:47)
[2017-06-12] VITALS (7 sets, daily range): BP systolic 130–164; BP diastolic 60–78; PULSE 50–60; RESP 18–20; TEMP 97.4–98.5; O2SAT 90–99
[2017-06-12] MEDS: methylPREDNISolone SOD SUCC 40 MG/1 ML VIAL IV PUSH SCH ×5 (00:40→23:20)
[2017-06-12] MEDS: SODIUM CHLOR 0.9% 1000 ML INJ 1,000 ML IV SCH ×2 (04:51→18:05)
[2017-06-12] MEDS: PYRIDOSTIGMINE BROMIDE 60 MG TAB PO SCH ×5 (05:42→21:47)
[2017-06-12 07:56] LABS: HEMATOCRIT 33.5 % (39.0-51.0); MEAN CELL VOLUME 92.3 FL (80.0-100.0); MEAN CORPUSCULAR HEMOGLOBIN 30.9 PG (27.0-34.0); MEAN CORPUSCULAR HGB CONC 33.5 % (32.0-36.0); PLATELET COUNT 152 TH/MM3 (150-450); RED BLOOD COUNT 3.63 MIL/MM3 (4.50-5.90); RED CELL DISTRIBUTION WIDTH 14.3 % (11.6-17.2); REVIEW FLAG FINAL; WHITE BLOOD COUNT 5.3 TH/MM3 (4.0-11.0)
[2017-06-12 08:16] LABS: POTASSIUM 4.1 MEQ/L (3.5-5.1)
[2017-06-12] MEDS: HEPARIN SODIUM - SQ 10,000 UNITS/ML VIAL SQ SCH ×2 (09:00→21:00)
[2017-06-12] MEDS: ONDANSETRON HCL 4 MG/2 ML VIAL IVP PRN (09:20)
[2017-06-12] MEDS: DOCUSATE SODIUM 50 MG/SENNA 8.6 MG TAB PO SCH ×2 (09:20→21:46)
[2017-06-12] MEDS: SODIUM CHLORIDE 0.9% FLUSH 10 ML FLUSH IV FLUSH SCH ×2 (09:21→21:00)
--- NOTE | 2017-06-12 10:24 | HHI.FPPN ---
Subjective Remarks No overnight events reported. He does note that since eating lunch yesterday afternoon that his speech and swallowing have become more difficult. He notes that he got oral fatigue while eating meat loaf at lunchHe denies increased amounts of coughing but does have increased oral secretions typical of myasthenia flares. He thinks he will need plasmapheresis. Objective Vitals Vital Signs Date Time Temp Pulse Resp B/P (MAP) Pulse Ox O2 Delivery O2 Flow Rate FiO2 06/12/17 08:00 97.6 54 18 153/67 (95) 94 06/12/17 05:56 97.8 60 20 138/64 (88) 94 06/12/17 00:58 97.9 60 20 130/60 (83) 95 06/11/17 21:31 97.2 65 20 148/66 (93) 96 06/11/17 16:00 97.8 57 16 169/72 (104) 98 06/11/17 13:30 59 06/11/17 12:00 97.7 56 18 136/65 (88) 97 I/O 06/11/17 06/11/17 06/11/17 06/12/17 06/12/17 06/12/17 07:00 15:00 23:00 07:00 15:00 23:00 Intake Total 480 ml 2158 ml 939 ml Output Total 0 ml 840 ml Balance 0 ml 480 ml 2158 ml 939 ml -840 ml Intake Oral 480 ml IV Total 2158 ml 939 ml Output Urine Total 0 ml 840 ml # Voids 2 # Bowel Movements 0 2 Result Diagram: 06/12/17 0718 06/12/17 0718 Imaging Last Impressions Head CT 06/10/17 0000 Signed Impressions: Service Date/Time: Saturday, June 10, 2017 13:35 - CONCLUSION: 1. No acute intracranial abnormality. 2. Atrophy and chronic small vessel ischemic change. Agustin Guajardo Jr., MD Objective Remarks GENERAL: This is a well-nourished, well-developed patient, in no apparent distress. Sitting up eating breakfast. Speech more muffled today. SKIN: No rashes. Cool and dry. HEAD: Atraumatic. Normocephalic. EYES: Extraocular motions intact. No scleral icterus. No injection or drainage. ENT: Nose without bleeding, purulent drainage or septal hematoma. Uvula midline. Airway patent but increased secretions noted, pt intermittently uses OG tube suction for comfort. NECK: Trachea midline. CARDIOVASCULAR: Regular rate and rhythm without gallops, or rubs. Soft 1/6 systolic murmur. RESPIRATORY: Clear to auscultation, nonlabored. Breath sounds equal bilaterally. No wheezes, rales, or rhonchi. GASTROINTESTINAL: Abdomen soft, non-tender, nondistended. No hepato-splenomegaly , or palpable masses. No guarding. Recent surgical scar in right inguinal area from recent hernia repair, no erythema/swelling/tenderness/discharge, well healing. MUSCULOSKELETAL: Extremities without clubbing, cyanosis, or edema. No joint tenderness, effusion, or edema noted. No calf tenderness. NEUROLOGICAL: Awake and alert. Cranial nerves II through XII intact. Motor and sensory grossly within normal limits. Speech slow, muffled, consistent with hearing impairment. No obvious slurring. Medications and IVs Inpatient Medications Acetaminophen (Tylenol) 650 mg Q6H PRN PO PAIN SCALE 1 TO 10; Start 06/10/17 at 22:00 Alprazolam (Xanax) 0.25 mg DAILY PRN PO ANXIETY Last administered on t 22:47; Start 06/10/17 at 22:00 Bisacodyl (Dulcolax Supp) 10 mg DAILY PRN RECTAL SEVERE CONSITIPATION; Start 06/10/17 at 14:30 Cyanocobalamin (Vitamin B12 Inj) 1,000 mcg ONCE ONCE IM Last administered on 06/11/17t 15:49; Start 06/11/17 at 14:45; Stop 06/11/17 at 14:46; Status DC Enalaprilat (Vasotec Inj) 1.25 mg Q6H PRN IV PUSH SBP> OR = 180, DBP> OR = 100 ; Start 06/10/17 at 22:00 Heparin Sodium (Porcine) (Heparin Inj) 5,000 units Q12HR SQ ; Start 06/12/17 at 09:00 Lactulose (Lactulose Liq) 30 ml DAILY PRN PO SEVERE CONSITIPATION; Start 06/10 at 14:30 Loperamide HCl (Imodium) 4 mg BID PRN PO DIARRHEA; Start 06/10/17 at 17:30 Magnesium Hydroxide (Milk Of Magnesia Liq) 30 ml Q12H PRN PO Mild constipation ; Start 06/10/17 at 14:30 Methylprednisolone Sodium Succinate (SoluMEDROL INJ) 25 mg Q6H IV PUSH Last administered on 06/12/17 05:41; Start 06/10/17 at 18:00 Miscellaneous (Pill Splitter) 1 ea UNSCH PRN OTHER SEE LABEL COMMENTS; Start 06/10/17 at 18:45 Ondansetron HCl (Zofran Inj) 4 mg Q6H PRN IVP NAUSEA OR VOMITING Last administered on 06/12/17 09:20; Start 06/10/17 at 14:30 Pyridostigmine [place] (Mestinon) 90 mg 5 TIMES A DAY PO Last administered on 06/12/17 09:18; Start 06/10/17 at 18:30 Senna/Docusate Sodium (Ramona-Colace) 1 tab BID PO Last administered on 09:20; Start 06/10/17 at 21:00 Sennosides (Senokot) 17.2 mg Q12H PRN PO Moderate constipation; Start at 14:30 Sodium Chloride 1,000 ml @ 75 mls/hr [id number] IV Last administered on 04:51; Start 06/11/17 at 15:31 Sodium Chloride (NS Flush) 2 ml BID IV FLUSH Last administered on 06/12/17 09 :21; Start 06/10/17 at 21:00 A/P Assessment and Plan 86-year-old male with past history of colon cancer (treated), hyperlipidemia, prostate cancer (treated), recurrent dysphagia, myasthenia gravis who presented for dysphagia and slurred speech. Currently without other neurological neurological deficits. Head CT without acute intracranial abnormality. Patient personally deferred MRI at admission. Discharge Planning Anticipate discharge once pt is back at baseline, pending additional recommendations from neurology and hematology. Likely 1-2 days. Problem List: (1) Dysarthria ICD Codes: R47.1 - Dysarthria and anarthria Status: Acute Plan: Airway is protected but dysarthria and dysphagia Worse since 06/11 afternoon per pt report Spoke with Dr. Villa, who requests hematology to evaluate for possible plasmapharesis Will call hematology for recommendations Hospital Course: Dysarthria and dysphasia similar to past episodes of myasthenia flare-ups. CT without acute process. Patient deferred MRI at admission. Self-reported slurred speech, not overtly recognizable on exam, otherwise no focal neurological deficits. Pt reports that his speech is improving. * Neuro checks every 4 * Neurology consulted, appreciate recommendations. * Mestinon 90mg Q4hrs * Consider IVIG and plasmapheresis based on response * Out of bed as tolerated * Hematology, Dr. Garcia, consulted, appreciate recommendations * Continue management of myasthenia as below * Monitor for signs concerning for stroke (2) Myasthenia gravis ICD Codes: G70.00 - Myasthenia gravis Status: Chronic Plan: Chronic myasthenia gravis * Home medications -Pyridostigmine 60 mg by mouth 3 times a day * Appreciate neurology recommendations Permanent Comment: Dysphagia; elevated acetycholine recept bind AB elevated, striated muscle ab + Last Edited By: Chris Doherty on Aug 26, 2014 13:53 (3) Bicytopenia ICD Codes: D75.89 - Other specified diseases of blood and blood-forming organs Status: Acute Plan: On admission WBC count 3.8, RBC 3.78 * Follow-up peripheral blood smear, results pending. * Currently without signs of infection (4) FEN Plan: Fluids * NS 75mls/hr, consider decreasing if pt has sufficient PO intake Electrolytes * Monitor and replete as needed Nutrition * Heart healthy diet, soft Prophylaxis * SCDs, heparin Nida Cardona MD R2 Jun 12, 2017 10:24
--- NOTE | 2017-06-12 10:51 | PD.ONC.PN ---
Subjective Subjective Remarks Afebrile overnight. patient states he is getting worse. reports when he first came in, he was just having difficulty swallowing. now he is having difficulty talking as well. he is hoping to start plasma exchange soon. Objective Data Date Time Temp Pulse Resp B/P (MAP) Pulse Ox O2 Delivery O2 Flow Rate FiO2 06/12/17 08:10 56 06/12/17 08:00 97.6 54 18 153/67 (95) 94 06/12/17 05:56 97.8 60 20 138/64 (88) 94 06/12/17 00:58 97.9 60 20 130/60 (83) 95 06/11/17 21:31 97.2 65 20 148/66 (93) 96 06/11/17 16:00 97.8 57 16 169/72 (104) 98 06/11/17 13:30 59 06/11/17 12:00 97.7 56 18 136/65 (88) 97 06/12/17 06/12/17 06/12/17 07:00 15:00 23:00 Intake Total 939 ml Output Total 840 ml Balance 939 ml -840 ml Result Diagram: 06/12/1718 06/12/17 0718 Laboratory Results Laboratory Tests Test 06/12/17 07:18 White Blood Count 5.3 TH/MM3 Red Blood Count 3.63 MIL/MM3 Hemoglobin 11.2 GM/DL Hematocrit 33.5 % Mean Corpuscular Volume 92.3 FL Mean Corpuscular Hemoglobin 30.9 PG Mean Corpuscular Hemoglobin Concent 33.5 % Red Cell Distribution Width 14.3 % Platelet Count 152 TH/MM3 Mean Platelet Volume 8.2 FL Blood Urea Nitrogen 28 MG/DL Creatinine 0.99 MG/DL Random Glucose 119 MG/DL Calcium Level 8.7 MG/DL Sodium Level 140 MEQ/L Potassium Level 4.1 MEQ/L Chloride Level 108 MEQ/L Carbon Dioxide Level 28.0 MEQ/L Anion Gap 4 MEQ/L Estimat Glomerular Filtration Rate 72 ML/MIN Administered Medications Medications (Trade) Dose Ordered Sig/Brock Route PRN Reason Start Time Stop Time Status Last Admin Dose Admin Sodium Chloride (NS Flush) 2 ml BID IV FLUSH 06/10/17 21:00 06/12/17 09:21 Ondansetron HCl (Zofran Inj) 4 mg Q6H PRN IVP NAUSEA OR VOMITING 06/10/17 14:30 06/12/17 09:20 Senna/Docusate Sodium (Ramona-Colace) 1 tab BID PO 06/10/17 21:00 06/12/17 09:20 Methylprednisolone Sodium Succinate (SoluMEDROL INJ) 25 mg Q6H IV PUSH 06/10/17 18:00 06/12/17 05:41 Pyridostigmine [place] (Mestinon) 90 mg 5 TIMES A DAY PO 06/10/17 18:30 06/12/17 09:18 Alprazolam (Xanax) 0.25 mg DAILY PRN PO ANXIETY 06/10/17 22:00 06/11/17 22:47 Sodium Chloride 1,000 ml @ 75 mls/hr [id number] IV 06/11/17 15:31 06/12/17 04:51 Objective Remarks GENERAL: Elderly male sitting up in bed in [facility]. SKIN: Warm and dry. HEAD: Normocephalic. EYES: No scleral icterus. No injection or drainage. NECK: Supple, trachea midline CARDIOVASCULAR: Regular rate and rhythm RESPIRATORY: Breath sounds equal bilaterally. No accessory muscle use. GASTROINTESTINAL: Abdomen soft, non-tender, nondistended. EXTREMITIES: No cyanosis NEUROLOGICAL: ++garbled speech. Awake, alert, and oriented x3. Assessment/Plan Problem List: (1) Myasthenia gravis ICD Codes: G70.00 - Myasthenia gravis Status: Chronic Plan: 06/12: continue Mestinon and solu-medrol. UPDATE: will start plasma exchange tomorrow after vas-cath placement in invasive radiology --currently on Mestinon and solu-medrol --Dr. Crawford, neurologist, covering for Dr. Mickey Loyola, does not want to initiate plasmapheresis at this time. wants to try with the medications. Permanent Comment: Dysphagia; elevated acetycholine recept bind AB elevated, striated muscle ab + Last Edited By: Chris Doherty on Aug 26, 2014 13:53 Assessment 86y/o male with myasthenia gravis, admitted for exacerbation history of colon cancer status post surgery followed by chemotherapy. Prostate cancer on intermittent Lupron therapy. He has stage IV prostate cancer. Mild anemia and leukopenia which is chronic and due to B12 deficiency. Attending Statement The exam, history, and the medical decision-making described in the above note were completed with the assistance of the mid-level provider. I reviewed and agree with the findings presented. I attest that I had a [id number] encounter with the patient on the same day, and personally performed and documented my assessment and findings in the medical record Speech and swallowing getting worst. family resident spoke to Dr Crawford and he agrees to start plasma EX. Consult IR in Am for pheresis start pheresis tomorrow. Pt agrees. . Elly Grimaldo Jun 12, 2017 10:51 Gabriel Garcia MD Jun 12, 2017 17:48
--- NOTE | 2017-06-12 18:31 | HHI.PR ---
Review/Management Daily Summary alert and Ox3 speech better, near normal discussed with RN and start oob activities as tolerated mestinon 90 q 4 from 6 to 10(no timespan available) 06/12 more symptomatic today and very anxious to start plasmapheresis, says he has hadn 4 times in past 2 years agree as symptoms worsened and now unable to swallow hematology arranging pheresis to start tomorrow consider azathioprine after pheresis continue solumedrol and mestinon Subjective Subjective Comments more dysphagia and dysarthria today Active Medications Current Medications Medications (Trade) Dose Ordered Sig/Brock Route Start Time Stop Time Status Last Admin (NS Flush) 2 ml UNSCH PRN IV FLUSH 06/10/17 14:00 (NS Flush) 2 ml BID IV FLUSH 06/10/17 21:00 06/12/17 09:21 (Tylenol) 650 mg Q4H PRN PO 06/10/17 14:30 (Zofran Inj) 4 mg Q6H PRN IVP 06/10/17 14:30 06/12/17 09:20 (Ramona-Colace) 1 tab BID PO 06/10/17 21:00 06/12/17 09:20 (Milk Of Magnesia Liq) 30 ml Q12H PRN PO 06/10/17 14:30 (Senokot) 17.2 mg Q12H PRN PO 06/10/17 14:30 (Dulcolax Supp) 10 mg DAILY PRN RECTAL 06/10/17 14:30 (Lactulose Liq) 30 ml DAILY PRN PO 06/10/17 14:30 (SoluMEDROL INJ) 25 mg Q6H IV PUSH 06/10/17 18:00 06/12/17 18:05 (Imodium) 4 mg BID PRN PO 06/10/17 17:30 (Mestinon) 90 mg 5 TIMES A DAY PO 06/10/17 18:30 06/12/17 18:04 (Pill Splitter) 1 ea UNSCH PRN OTHER 06/10/17 18:45 (Xanax) 0.25 mg DAILY PRN PO 06/10/17 22:00 06/11/17 22:47 (Vasotec Inj) 1.25 mg Q6H PRN IV PUSH 06/10/17 22:00 (Tylenol) 650 mg Q6H PRN PO 06/10/17 22:00 Sodium Chloride 1,000 ml @ 75 mls/hr [id number] IV 06/11/17 15:31 06/12/17 18:05 (Heparin Inj) 5,000 units Q12HR SQ 06/12/17 09:00 Allergies Allergies Coded Allergies Sulfa (Sulfonamide Antibiotics) (Unverified Allergy, Severe, Flushing, ) lorazepam (Unverified Allergy, Intermediate, Psychosis, 06/10/17) prochlorperazine (Unverified Allergy, Unknown, JITTERY, 06/10/17) Exam I&O / VS 06/12/17 06/12/17 06/13/17 15:00 23:00 07:00 Intake Total 480 ml 1000 ml Output Total 840 ml Balance -360 ml 1000 ml Intake Oral 480 ml IV Total 1000 ml Output Urine Total 840 ml # Voids 8 # Bowel Movements 0 Vital Signs Date Time Temp Pulse Resp B/P (MAP) Pulse Ox O2 Delivery O2 Flow Rate FiO2 06/12/17 16:00 98.5 58 18 140/61 (87) 95 06/12/17 12:00 97.6 50 18 142/71 (94) 99 06/12/17 08:10 56 06/12/17 08:00 97.6 54 18 153/67 (95) 94 06/12/17 05:56 97.8 60 20 138/64 (88) 94 06/12/17 00:58 97.9 60 20 130/60 (83) 95 06/11/17 21:31 97.2 65 20 148/66 (93) 96 General: Alert and Oriented, No acute distress Eye: PERRL, EOMI, Normal conjuctiva, Vision unchanged Respiratory: Lungs CTA, Non-labored respirations Cardiology: Normal rate, Intact pulses Musculoskeletal: ROM, Tenderness, Swelling Neurologic: Alert, Oriented, Normal sensory, Normal DTR's, Other Psychiatric: Cooperative, Appropriate mood & affect, Normal judgement Objective Micro and Labs Laboratory Tests Test 06/12/17 07:18 White Blood Count 5.3 Red Blood Count 3.63 Hemoglobin 11.2 Hematocrit 33.5 Mean Corpuscular Volume 92.3 Mean Corpuscular Hemoglobin 30.9 Mean Corpuscular Hemoglobin Concent 33.5 Red Cell Distribution Width 14.3 Platelet Count 152 Mean Platelet Volume 8.2 Blood Urea Nitrogen 28 Creatinine 0.99 Random Glucose 119 Calcium Level 8.7 Sodium Level 140 Potassium Level 4.1 Chloride Level 108 Carbon Dioxide Level 28.0 Anion Gap 4 Estimat Glomerular Filtration Rate 72 Cameron Crawford MD Jun 12, 2017 18:31
[2017-06-12] MEDS: ALPRAZolam 0.25 MG TAB PO PRN (23:20)
[2017-06-13] VITALS (7 sets, daily range): BP systolic 141–188; BP diastolic 64–82; PULSE 55–61; RESP 15–20; TEMP 97.3–97.8; O2SAT 93–97
[2017-06-13] MEDS: PYRIDOSTIGMINE BROMIDE 60 MG TAB PO SCH ×5 (05:45→22:17)
[2017-06-13] MEDS: methylPREDNISolone SOD SUCC 40 MG/1 ML VIAL IV PUSH SCH ×3 (05:52→18:00)
[2017-06-13 06:53] LABS: AUTOMATED NEUTROPHIL # 3.8 TH/MM3 (1.8-7.7); HEMO FLAGS DIFF FINAL; LYMPH % 4.4 % (9.0-44.0); LYMPHOCYTE # 0.2 TH/MM3 (1.0-4.8); MEAN CORPUSCULAR HEMOGLOBIN 30.5 PG (27.0-34.0); MEAN CORPUSCULAR HGB CONC 33.2 % (32.0-36.0); MONO % 3.1 % (0.0-8.0); NEUT % 92.5 % (16.0-70.0); PLATELET COUNT 153 TH/MM3 (150-450); RED CELL DISTRIBUTION WIDTH 14.1 % (11.6-17.2); WHITE BLOOD COUNT 4.1 TH/MM3 (4.0-11.0)
[2017-06-13 07:16] LABS: APTT (PATIENT) 25.5 SEC (24.3-30.1); PROTHROMBIN TIME - PATIENT 11.5 SEC (9.8-11.6)
[2017-06-13 07:17] LABS: POTASSIUM 3.8 MEQ/L (3.5-5.1)
[2017-06-13] MEDS: SODIUM CHLOR 0.9% 1000 ML INJ 1,000 ML IV SCH ×2 (07:30→20:51)
[2017-06-13] MEDS: SODIUM CHLORIDE 0.9% FLUSH 10 ML FLUSH IV FLUSH SCH ×2 (09:00→22:13)
[2017-06-13] MEDS: HEPARIN SODIUM - SQ 10,000 UNITS/ML VIAL SQ SCH ×2 (09:00→21:00)
[2017-06-13] MEDS: DOCUSATE SODIUM 50 MG/SENNA 8.6 MG TAB PO SCH ×2 (09:00→22:13)
--- NOTE | 2017-06-13 09:51 | PD.RAD ---
Post Procedure Progress Note Pre Procedure Diagnosis: (1) Myasthenia gravis Post Procedure Diagnosis: (1) Myasthenia gravis Procedure Date: Jun 13, 2017 Supervising Radiologist: Ponce Simental Estimated blood loss: 2cc Plan of Activity Patient to Unit: Nursing Unit Patient Condition: Fair Additional Comments: Vascath placed via the right IJ. Catheter in good position OK for use. Full dictated report to follow See PACS Report for procedural detail/treatment Ponce Simental MD Jun 13, 2017 09:51
[2017-06-13] MEDS ORDERED: SODIUM CHLORIDE 0.9% FLUSH 10 ML FLUSH IV FLUSH PRN (10:00)
[2017-06-13] MEDS ORDERED: HEPARIN SODIUM - IV 2,000 UNITS/2 ML VIAL IV FLUSH PRN (10:00)
--- NOTE | 2017-06-13 13:01 | RADRPT ---
EXAM DATE/TIME: 06/13/2017 09:18 [place] COMPARISON: TEMP DIALYSIS CATHETER [facility] W/US, RIGHT, September 20, 2016, 10:48. INDICATIONS : Patient presents with myasthenia gravis crisis in need of non tunneled dialysis catheter for plasma e xchange. 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 eye Right hernia repair Apr 2017 ENCOUNTER: Subsequent ACUITY: 3 days PAIN SCORE: 0/10 LOCATION: N/A FLUORO TIME: 0.4 minutes IMAGE SERIES: 1 ACCESS: Right internal jugular vein MEDICATION(S): 1.) 2,200 units Heparin IV DEVICE(S): 1.) 14 [place] dual lumen 15 cm Schon catheter PROCEDURE : 1. Ultrasound guided venipuncture. 2. Fluoroscopic guidance. 3. Central line placement. The risks, benefits and alternatives to the procedure were explained and verbal and written consent w as obtained. The site was prepped in sterile fashion. Full sterile technique was used, including ca p, mask, sterile gloves and gown and a large sterile sheet. Hand hygiene and 2% chlorhexidine prep w as utilized per protocol for cutaneous antisepsis with appropriate dry time for site. Sterile gel an d sterile probe cover were utilized for ultrasound guidance. The skin and subcutaneous tissues were infiltrated with local anesthetic solution. A suitable site a marvel the right internal jugular vein was selected with ultrasound and fluoroscopic guidance. A small incision was made. The vein was accessed under direct ultrasound visualization using the micropunct ure technique. The micropuncture set was exchanged for a 0.035 wire. The tract was dilated. The ca theter was advanced into position under direct fluoroscopic visualization. The catheter was fixed in place with suture and a sterile dressing was applied. The patient tolerated the procedure well and there were no complications. CONCLUSION: Vas-Cath placement via the right internal jugular vein. Ponce Simental MD on June 13, 2017 at 12:59 Board Certified Radiologist. This report was verified electronically.
--- NOTE | 2017-06-13 13:58 | PD.ONC.PN ---
Subjective Subjective Remarks Afebrile overnight. reports increase difficulty with speech and swallowing today. having difficulty managing oral secretions. has been using suctioning. Objective Data Date Time Temp Pulse Resp B/P (MAP) Pulse Ox O2 Delivery O2 Flow Rate FiO2 06/13/17 08:00 97.4 61 15 141/68 (92) 94 06/13/17 05:54 97.6 61 20 145/67 (93) 93 06/13/17 01:18 97.5 55 18 145/64 (91) 94 06/12/17 21:12 97.4 60 20 164/78 (106) 90 06/12/17 16:00 98.5 58 18 140/61 (87) 95 06/13/17 06/13/17 06/13/17 07:00 15:00 23:00 Intake Total 995 ml Output Total 300 ml Balance -300 ml 995 ml Result Diagram: 06/13/17 0535 06/13/17 0535 Laboratory Results Laboratory Tests Test 06/13/17 05:35 White Blood Count 4.1 TH/MM3 Red Blood Count 3.80 MIL/MM3 Hemoglobin 11.6 GM/DL Hematocrit 35.0 % Mean Corpuscular Volume 92.0 FL Mean Corpuscular Hemoglobin 30.5 PG Mean Corpuscular Hemoglobin Concent 33.2 % Red Cell Distribution Width 14.1 % Platelet Count 153 TH/MM3 Mean Platelet Volume 8.1 FL Neutrophils (%) (Auto) 92.5 % Lymphocytes (%) (Auto) 4.4 % Monocytes (%) (Auto) 3.1 % Eosinophils (%) (Auto) 0.0 % Basophils (%) (Auto) 0.0 % Neutrophils # (Auto) 3.8 TH/MM3 Lymphocytes # (Auto) 0.2 TH/MM3 Monocytes # (Auto) 0.1 TH/MM3 Eosinophils # (Auto) 0.0 TH/MM3 Basophils # (Auto) 0.0 TH/MM3 CBC Comment DIFF FINAL Differential Comment Prothrombin Time 11.5 SEC Prothromb Time International Ratio 1.0 RATIO Activated Partial Thromboplast Time 25.5 SEC Fibrinogen 223 mg/dL Blood Urea Nitrogen 23 MG/DL Creatinine 0.94 MG/DL Random Glucose 129 MG/DL Calcium Level 9.2 MG/DL Sodium Level 141 MEQ/L Potassium Level 3.8 MEQ/L Chloride Level 107 MEQ/L Carbon Dioxide Level 29.0 MEQ/L Anion Gap 5 MEQ/L Estimat Glomerular Filtration Rate 76 ML/MIN Imaging Studies Last 24 hours Impressions Catheter Placement X-Ray 06/13/17 0000 Signed Impressions: Service Date/Time: Tuesday, June 13, 2017 09:18 - CONCLUSION: Vas-Cath placement via the right internal jugular vein. Ponce Simental MD Administered Medications Medications (Trade) Dose Ordered Sig/Brock Route PRN Reason Start Time Stop Time Status Last Admin Dose Admin Sodium Chloride (NS Flush) 2 ml BID IV FLUSH 06/10/17 21:00 06/12/17 09:21 Ondansetron HCl (Zofran Inj) 4 mg Q6H PRN IVP NAUSEA OR VOMITING 06/10/17 14:30 06/12/17 09:20 Senna/Docusate Sodium (Ramona-Colace) 1 tab BID PO 06/10/17 21:00 06/12/17 21:46 Methylprednisolone Sodium Succinate (SoluMEDROL INJ) 25 mg Q6H IV PUSH 06/10/17 18:00 06/13/17 12:01 Pyridostigmine [place] (Mestinon) 90 mg 5 TIMES A DAY PO 06/10/17 18:30 06/13/17 12:01 Alprazolam (Xanax) 0.25 mg DAILY PRN PO ANXIETY 06/10/17 22:00 06/12/17 23:20 Sodium Chloride 1,000 ml @ 75 mls/hr [id number] IV 06/11/17 15:31 06/13/17 07:30 Objective Remarks GENERAL: Elderly male upright in bed with garbled speech. SKIN: Warm and dry. HEAD: Normocephalic. EYES: No injection or drainage. NECK: Supple, trachea midline. CARDIOVASCULAR: Regular rate and rhythm RESPIRATORY: Breath sounds equal bilaterally. No accessory muscle use. GASTROINTESTINAL: Abdomen soft, non-tender, nondistended. EXTREMITIES: No cyanosis NEUROLOGICAL: awake and alert, +garbled speech. able to move extremities. Assessment/Plan Problem List: (1) Myasthenia gravis ICD Codes: G70.00 - Myasthenia gravis Status: Chronic Plan: 06/13: vas-cath placed this AM. starting plasma exchange today. --currently on Mestinon and solu-medrol Permanent Comment: Dysphagia; elevated acetycholine recept bind AB elevated, striated muscle ab + Last Edited By: Chris Doherty on Aug 26, 2014 13:53 Assessment 86y/o male with myasthenia gravis, admitted for exacerbation history of colon cancer status post surgery followed by chemotherapy. Prostate cancer on intermittent Lupron therapy. He has stage IV prostate cancer. Mild anemia and leukopenia which is chronic and due to B12 deficiency. Attending Statement dysphagia and dysarthria vascath PEX today d/w Dialysis nurse. The exam, history, and the medical decision-making described in the above note were completed with the assistance of the mid-level provider. I reviewed and agree with the findings presented. I attest that I had a [id number] encounter with the patient on the same day, and personally performed and documented my assessment and findings in the medical record. Elly Grimaldo Jun 13, 2017 13:58 Gabriel Garcia MD Jun 13, 2017 17:38
--- NOTE | 2017-06-13 14:40 | HHI.FPPN ---
Subjective Remarks Patient was seen and examined this afternoon. He feels his speech and swallowing are steadily worsening and is now only comfortable with pureed foods due to tongue fatigue. He needs suction for salivary secretions. He has had some shortness of breath with exertion since yesterday. Plasma exchange scheduled for 3pm today. Objective Vitals Vital Signs Date Time Temp Pulse Resp B/P (MAP) Pulse Ox O2 Delivery O2 Flow Rate FiO2 06/13/17 08:00 97.4 61 15 141/68 (92) 94 06/13/17 05:54 97.6 61 20 145/67 (93) 93 06/13/17 01:18 97.5 55 18 145/64 (91) 94 06/12/17 21:12 97.4 60 20 164/78 (106) 90 06/12/17 16:00 98.5 58 18 140/61 (87) 95 I/O 06/12/17 06/12/17 06/12/17 06/13/17 06/13/17 06/13/17 07:00 15:00 23:00 07:00 15:00 23:00 Intake Total 939 ml 480 ml 1000 ml 995 ml Output Total 840 ml 100 ml 300 ml Balance 939 ml -360 ml 900 ml -300 ml 995 ml Intake Oral 480 ml IV Total 939 ml 1000 ml 995 ml Output Urine Total 840 ml 100 ml 300 ml # Voids 8 # Bowel Movements 0 Result Diagram: 06/13/17 0535 06/13/17 0535 Imaging Last Impressions Catheter Placement X-Ray 06/13/17 0000 Signed Impressions: Service Date/Time: Tuesday, June 13, 2017 09:18 - CONCLUSION: Vas-Cath placement via the right internal jugular vein. Ponce Simental MD Head CT 06/10/17 0000 Signed Impressions: Service Date/Time: Saturday, June 10, 2017 13:35 - CONCLUSION: 1. No acute intracranial abnormality. 2. Atrophy and chronic small vessel ischemic change. Agustin Guajardo Jr., MD Objective Remarks GENERAL: This is a well-nourished, well-developed patient, in no apparent distress. Sitting up eating breakfast. Speech even more muffled today. SKIN: No rashes. Cool and dry. HEAD: Atraumatic. Normocephalic. EYES: Extraocular motions intact. No scleral icterus. No injection or drainage. ENT: Nose without bleeding, purulent drainage or septal hematoma. Uvula midline. Airway patent but increased secretions noted, pt intermittently uses OG tube suction for comfort. NECK: Trachea midline. CARDIOVASCULAR: Regular rate and rhythm without gallops, or rubs. Soft 1/6 systolic murmur. RESPIRATORY: Clear to auscultation, nonlabored. Breath sounds equal bilaterally. No wheezes, rales, or rhonchi. GASTROINTESTINAL: Abdomen soft, non-tender, nondistended. No hepato-splenomegaly , or palpable masses. No guarding. Recent surgical scar in right inguinal area from recent hernia repair, no erythema/swelling/tenderness/discharge, well healing. MUSCULOSKELETAL: Extremities without clubbing, cyanosis, or edema. No joint tenderness, effusion, or edema noted. No calf tenderness. NEUROLOGICAL: Awake and alert. Cranial nerves II through XII intact. Motor and sensory grossly within normal limits. Speech slow, muffled. He is slurring the speech now. Urinary Catheter: No Vascular Central Line Catheter: No A/P Assessment and Plan 86-year-old male with past history of colon cancer (treated), hyperlipidemia, prostate cancer (treated), recurrent dysphagia, myasthenia gravis who presented for dysphagia and slurred speech. Currently without other neurological neurological deficits. Head CT without acute intracranial abnormality. Patient personally deferred MRI at admission. Discharge Planning Anticipate discharge once pt is back at baseline, pending additional recommendations from neurology and hematology. May require many treatments with plasma exchange, initiated 06/13. Problem List: (1) Myasthenia gravis ICD Codes: G70.00 - Myasthenia gravis Status: Chronic Plan: Airway is protected but dysarthria and dysphagia worsening Worse since 06/11 afternoon per pt report VasCath placed 06/13 AM Plasmapheresis scheduled to start 06/13 at 3pm Hematology managing plasmapheresis orders Hospital Course: Dysarthria and dysphasia similar to past episodes of myasthenia flare-ups. CT without acute process. Patient deferred MRI at admission. Self-reported slurred speech, not overtly recognizable on exam, otherwise no focal neurological deficits. Pt reports that his speech is improving * Neuro checks every 4hr * Neurology consulted, appreciate recommendations * Mestinon 90mg Q4hrs * Consider IVIG and plasmapheresis based on response * Out of bed as tolerated * Hematology, Dr. Garcia, consulted, appreciate recommendations * Continue management of myasthenia as below * Monitor for signs concerning for stroke Permanent Comment: Dysphagia; elevated acetycholine recept bind AB elevated, striated muscle ab + Last Edited By: Chris Doherty on Aug 26, 2014 13:53 (2) Dysarthria ICD Codes: R47.1 - Dysarthria and anarthria Status: Acute Plan: As above (3) Bicytopenia ICD Codes: D75.89 - Other specified diseases of blood and blood-forming organs Status: Acute Plan: On admission WBC count 3.8, RBC 3.78 * Follow-up peripheral blood smear, results pending. * Currently without signs of infection (4) FEN Plan: Fluids * NS 75mls/hr, consider decreasing if pt has sufficient PO intake Electrolytes * Monitor and replete as needed Nutrition * Heart healthy diet, soft Prophylaxis * SCDs, heparin Nida Cardona MD R2 Jun 13, 2017 14:40
[2017-06-13] MEDS ORDERED: SODIUM CHLOR 0.9% 1000 ML IV ONE (16:00)
[2017-06-13] MEDS ORDERED: HEPARIN SODIUM - 10,000 UNITS/ML 1ML VIAL IV FLUSH PRN (16:00)
[2017-06-13] MEDS ORDERED: SODIUM CHLORIDE 0.9% 10 ML FLUSH IV FLUSH PRN (16:00)
[2017-06-13] MEDS ORDERED: diphenhydrAMINE HCL 50 MG/ML VIAL IV PUSH PRN (16:00)
[2017-06-13] MEDS ORDERED: ALBUMIN 5% IV SCH (17:00)
[2017-06-13] MEDS ORDERED: CALCIUM GLUCONATE INJ 3 GM in SODIUM CHLORIDE 0.9% INJ 150 ML IV SCH (17:00)
[2017-06-13] MEDS ORDERED: CALCIUM GLUCONATE INJ 1 GM in SODIUM CHLORIDE 0.9% INJ 50 ML IV SCH (17:00)
[2017-06-13] MEDS ORDERED: ANTICOAGULANT CITRATE DEXTROSE SOLN-A 1L OTHER SCH (17:00)
[2017-06-13] MEDS: ALPRAZolam 0.25 MG TAB PO PRN (23:22)
[2017-06-14] VITALS (8 sets, daily range): BP systolic 132–166; BP diastolic 63–84; PULSE 58–74; RESP 16–20; TEMP 95.6–98; O2SAT 94–99
[2017-06-14] MEDS: methylPREDNISolone SOD SUCC 40 MG/1 ML VIAL IV PUSH SCH ×2 (00:12→05:15)
[2017-06-14] MEDS: PYRIDOSTIGMINE BROMIDE 60 MG TAB PO SCH ×4 (05:15→22:09)
[2017-06-14 07:15] LABS: EOSINOPHIL % 0.1 % (0.0-4.0); HEMATOCRIT 37.1 % (39.0-51.0); HEMO FLAGS DIFF FINAL; LYMPH % 3.6 % (9.0-44.0); LYMPHOCYTE # 0.2 TH/MM3 (1.0-4.8); MEAN CELL VOLUME 91.5 FL (80.0-100.0); MEAN CORPUSCULAR HGB CONC 33.9 % (32.0-36.0); MONO % 3.9 % (0.0-8.0); NEUT % 92.4 % (16.0-70.0); PLATELET COUNT 133 TH/MM3 (150-450); RED BLOOD COUNT 4.06 MIL/MM3 (4.50-5.90); RED CELL DISTRIBUTION WIDTH 14.3 % (11.6-17.2); WHITE BLOOD COUNT 5.4 TH/MM3 (4.0-11.0)
[2017-06-14 07:31] LABS: INTERNATIONAL NORMALIZED RATIO 1.3 RATIO; PROTHROMBIN TIME - PATIENT 14.5 SEC (9.8-11.6)
--- NOTE | 2017-06-14 07:52 | HHI.PR ---
Objective Vital Signs Date Time Temp Pulse Resp B/P (MAP) Pulse Ox O2 Delivery O2 Flow Rate FiO2 06/14/17 04:00 97.5 60 18 156/81 (106) 97 06/14/17 00:00 97.4 58 18 132/63 (86) 95 06/13/17 20:40 97.3 58 18 188/82 (117) 97 06/13/17 16:00 97.8 59 16 160/72 (101) 97 06/13/17 14:33 97.4 56 16 166/76 (106) 97 06/13/17 08:00 97.4 61 15 141/68 (92) 94 I/O 06/13/17 06/13/17 06/13/17 06/14/17 06/14/17 06/14/17 07:00 15:00 23:00 07:00 15:00 23:00 Intake Total 995 ml 3821 ml Output Total 300 ml 400 ml 3750 ml Balance -300 ml 595 ml 71 ml IV Total 995 ml 3821 ml Output Urine Total 300 ml 400 ml 550 ml Hemodialysis 3200 ml # Voids 4 5 # Bowel Movements 1 Result Diagram: 06/14/17 0543 06/13/17 0535 Objective Remarks speech dysarthric very weak in bilat ocularis and some buccal awake alert Assessment and Plan Assessment and Plan imp he has polyuria on this dose of mestinon so change back to 120 tid he thinks steroids alsways makes him worse so dc it watch for bleeding on pex s/p one as had sah last time from hypocoagulable on it i held sq he for now oob with PT he will call me as soon as he gets worse and i can pex sooner from now on last pex 09/14 i will dw Mickey Cheung MD Jun 14, 2017 07:52
[2017-06-14] MEDS: SODIUM CHLOR 0.9% 1000 ML INJ 1,000 ML IV SCH ×2 (08:47→22:13)
[2017-06-14] MEDS: DOCUSATE SODIUM 50 MG/SENNA 8.6 MG TAB PO SCH ×2 (08:47→21:00)
[2017-06-14] MEDS: SODIUM CHLORIDE 0.9% FLUSH 10 ML FLUSH IV FLUSH SCH ×2 (08:47→21:00)
[2017-06-14] MEDS ORDERED: SODIUM CHLOR 0.9% 250 ML INJ 250 ML IV ONE (09:15)
--- NOTE | 2017-06-14 09:26 | PD.ONC.PN ---
Subjective Subjective Remarks Afebrile overnight. Patient resting in bed in nad. Objective Data Date Time Temp Pulse Resp B/P (MAP) Pulse Ox O2 Delivery O2 Flow Rate FiO2 06/14/17 04:00 97.5 60 18 156/81 (106) 97 06/14/17 00:00 97.4 58 18 132/63 (86) 95 06/13/17 20:40 97.3 58 18 188/82 (117) 97 06/13/17 16:00 97.8 59 16 160/72 (101) 97 06/13/17 14:33 97.4 56 16 166/76 (106) 97 Result Diagram: 06/14/17 0543 06/13/17 0535 Laboratory Results Laboratory Tests Test 06/14/17 05:43 White Blood Count 5.4 TH/MM3 Red Blood Count 4.06 MIL/MM3 Hemoglobin 12.6 GM/DL Hematocrit 37.1 % Mean Corpuscular Volume 91.5 FL Mean Corpuscular Hemoglobin 31.0 PG Mean Corpuscular Hemoglobin Concent 33.9 % Red Cell Distribution Width 14.3 % Platelet Count 133 TH/MM3 Mean Platelet Volume 7.8 FL Neutrophils (%) (Auto) 92.4 % Lymphocytes (%) (Auto) 3.6 % Monocytes (%) (Auto) 3.9 % Eosinophils (%) (Auto) 0.1 % Basophils (%) (Auto) 0.0 % Neutrophils # (Auto) 5.0 TH/MM3 Lymphocytes # (Auto) 0.2 TH/MM3 Monocytes # (Auto) 0.2 TH/MM3 Eosinophils # (Auto) 0.0 TH/MM3 Basophils # (Auto) 0.0 TH/MM3 CBC Comment DIFF FINAL Differential Comment Prothrombin Time 14.5 SEC Prothromb Time International Ratio 1.3 RATIO Activated Partial Thromboplast Time 33.0 SEC Fibrinogen 98 mg/dL Administered Medications Medications (Trade) Dose Ordered Sig/Brock Route PRN Reason Start Time Stop Time Status Last Admin Dose Admin Sodium Chloride (NS Flush) 2 ml BID IV FLUSH 06/10/17 21:00 06/14/17 08:47 Ondansetron HCl (Zofran Inj) 4 mg Q6H PRN IVP NAUSEA OR VOMITING 06/10/17 14:30 06/12/17 09:20 Senna/Docusate Sodium (Ramona-Colace) 1 tab BID PO 06/10/17 21:00 06/14/17 08:47 Alprazolam (Xanax) 0.25 mg DAILY PRN PO ANXIETY 06/10/17 22:00 06/13/17 23:22 Sodium Chloride 1,000 ml @ 75 mls/hr [id number] IV 06/11/17 15:31 06/14/17 08:47 Albumin Human 3,200 ml @ 250 mls/hr Q48H IV 06/13/17 17:00 06/22/17 05:47 06/13/17 19:44 Calcium Gluconate 3 gm/Sodium Chloride 180 ml @ 60 mls/hr Q48H IV 06/13/17 17:00 06/21/17 19:59 06/13/17 19:44 Anticoagulant Citrate Dextose Brandy A (Acd Formula Inj) 1,000 ml Q48H OTHER 06/13/17 17:00 06/21/17 17:01 06/13/17 19:45 Pyridostigmine [place] (Mestinon) 120 mg Q6H PO 06/14/17 09:00 06/14/17 08:47 Objective Remarks GENERAL: Pleasant elderly male sitting up on side of bed in nad. SKIN: Warm and dry. vas-cath in place, right neck. HEAD: Normocephalic. EYES: No injection or drainage. NECK: Supple, trachea midline. CARDIOVASCULAR: Regular rate and rhythm RESPIRATORY: Breath sounds equal bilaterally. No accessory muscle use. GASTROINTESTINAL: Abdomen soft, non-tender, nondistended. EXTREMITIES: No cyanosis NEUROLOGICAL: No obvious focal deficit. Awake, alert, and oriented x3. Assessment/Plan Problem List: (1) Myasthenia gravis ICD Codes: G70.00 - Myasthenia gravis Status: Chronic Plan: 06/14: off day. fibrinogen 98. coags prolonged. will give 1 unit cryo and recheck coags this afternoon. 06/13: vas-cath placed this AM. starting plasma exchange today. --currently on Mestinon and solu-medrol Permanent Comment: Dysphagia; elevated acetycholine recept bind AB elevated, striated muscle ab + Last Edited By: Chris Doherty on Aug 26, 2014 13:53 Assessment 86y/o male with myasthenia gravis, admitted for exacerbation history of colon cancer status post surgery followed by chemotherapy. Prostate cancer on intermittent Lupron therapy. He has stage IV prostate cancer. Mild anemia and leukopenia which is chronic and due to B12 deficiency. Attending Statement no new c/o Fibrinogen <100, Give cryo d/w DR Loyola. monitor coags. Elly Grimaldo Jun 14, 2017 09:25 Gabriel Garcia MD Jun 14, 2017 20:06
--- NOTE | 2017-06-14 10:55 | HHI.FPPN ---
Subjective Remarks Patient was seen and examined this morning. He states that he may have some improvement with swallowing but it might be about the same as well. He has no other complaints. E had his plasmapheresis treatment yesterday. Hematology has evaluated patient at bedside this morning and are planning cryoprecipitate infusion today. Objective Vitals Vital Signs Date Time Temp Pulse Resp B/P (MAP) Pulse Ox O2 Delivery O2 Flow Rate FiO2 06/14/17 08:00 98.0 74 20 166/84 (111) 97 06/14/17 04:00 97.5 60 18 156/81 (106) 97 06/14/17 00:00 97.4 58 18 132/63 (86) 95 06/13/17 20:40 97.3 58 18 188/82 (117) 97 06/13/17 16:00 97.8 59 16 160/72 (101) 97 06/13/17 14:33 97.4 56 16 166/76 (106) 97 I/O 06/13/17 06/13/17 06/13/17 06/14/17 06/14/17 06/14/17 07:00 15:00 23:00 07:00 15:00 23:00 Intake Total 995 ml 3821 ml Output Total 300 ml 400 ml 3750 ml Balance -300 ml 595 ml 71 ml IV Total 995 ml 3821 ml Output Urine Total 300 ml 400 ml 550 ml Hemodialysis 3200 ml # Voids 4 5 # Bowel Movements 1 Result Diagram: 06/14/17 0543 06/13/17 0535 Imaging Last Impressions Catheter Placement X-Ray 06/13/17 0000 Signed Impressions: Service Date/Time: Tuesday, June 13, 2017 09:18 - CONCLUSION: Vas-Cath placement via the right internal jugular vein. Ponce Simental MD Head CT 06/10/17 0000 Signed Impressions: Service Date/Time: Saturday, June 10, 2017 13:35 - CONCLUSION: 1. No acute intracranial abnormality. 2. Atrophy and chronic small vessel ischemic change. Agustin Guajardo Jr., MD Objective Remarks GENERAL: This is a well-nourished, well-developed patient, in no apparent distress. Sitting up eating breakfast. Speech even more muffled today. SKIN: No rashes. Cool and dry. HEAD: Atraumatic. Normocephalic. EYES: Extraocular motions intact. No scleral icterus. No injection or drainage. ENT: Nose without bleeding, purulent drainage or septal hematoma. Uvula midline. Airway patent but increased secretions noted, pt intermittently uses OG tube suction for comfort. NECK: Trachea midline. CARDIOVASCULAR: Regular rate and rhythm without gallops, or rubs. Soft 1/6 systolic murmur. RESPIRATORY: Clear to auscultation, nonlabored. Breath sounds equal bilaterally. No wheezes, rales, or rhonchi. GASTROINTESTINAL: Abdomen soft, non-tender, nondistended. No hepato-splenomegaly , or palpable masses. No guarding. Recent surgical scar in right inguinal area from recent hernia repair, no erythema/swelling/tenderness/discharge, well healing. MUSCULOSKELETAL: Extremities without clubbing, cyanosis, or edema. No joint tenderness, effusion, or edema noted. No calf tenderness. NEUROLOGICAL: Awake and alert. Cranial nerves II through XII intact. Motor and sensory grossly within normal limits. Speech slow, muffled. He is slurring the speech now. Medications and IVs Inpatient Medications Acetaminophen (Tylenol) 650 mg Q6H PRN PO PAIN SCALE 1 TO 10; Start 06/10/17 at 22:00 Albumin Human 3,200 ml @ 250 mls/hr Q48H IV Last administered on 06/13/17 19 :44; Start 06/13/17 at 17:00; Stop 06/22/17 at 05:47 Alprazolam (Xanax) 0.25 mg DAILY PRN PO ANXIETY Last administered on 23:22; Start 06/10/17 at 22:00 Anticoagulant Citrate Dextose Brandy A (Acd Formula Inj) 1,000 ml Q48H OTHER Last administered on 06/13/17 19:45; Start 06/13/17 at 17:00; Stop 06/21/17 at 17 :01 Bisacodyl (Dulcolax Supp) 10 mg DAILY PRN RECTAL SEVERE CONSITIPATION; Start 06/10/17 at 14:30 Calcium Gluconate 1 gm/Sodium Chloride 60 ml @ 60 mls/hr Q48H IV ; Start at 17:00; Stop 06/13/17 at 17:00; Status DC Calcium Gluconate 3 gm/Sodium Chloride 180 ml @ 60 mls/hr Q48H IV Last administered on 06/13/17 19:44; Start 06/13/17 at 17:00; Stop 06/21/17 at 19 :59 Cyanocobalamin (Vitamin B12 Inj) 1,000 mcg ONCE ONCE IM Last administered on 06/11/17 15:49; Start 06/11/17 at 14:45; Stop 06/11/17 at 14:46; Status DC Diphenhydramine HCl (Benadryl Inj) 25 mg UNSCH PRN IV PUSH ALLERGIC REACTION; Start 06/13/17 at 16:00 Enalaprilat (Vasotec Inj) 1.25 mg Q6H PRN IV PUSH SBP> OR = 180, DBP> OR = 100 ; Start 06/10/17 at 22:00 Heparin Sodium (Porcine) (Heparin Inj) 5,000 units UNSCH PRN IV FLUSH FLUSH AFTER USING IV ACCESS; Start 06/13/17 at 16:00 Lactulose (Lactulose Liq) 30 ml DAILY PRN PO SEVERE CONSITIPATION; Start 06/10 at 14:30 Loperamide HCl (Imodium) 4 mg BID PRN PO DIARRHEA; Start 06/10/17 at 17:30 Magnesium Hydroxide (Milk Of Magnesia Liq) 30 ml Q12H PRN PO Mild constipation ; Start 06/10/17 at 14:30 Methylprednisolone Sodium Succinate (SoluMEDROL INJ) 25 mg Q6H IV PUSH Last administered on 06/14/17 05:15; Start 06/10/17 at 18:00; Stop 06/14/17 at 07 :50; Status DC Miscellaneous (Pill Splitter) 1 ea UNSCH PRN OTHER SEE LABEL COMMENTS; Start 06/10/17 at 18:45 Ondansetron HCl (Zofran Inj) 4 mg Q6H PRN IVP NAUSEA OR VOMITING Last administered on 06/12/17 09:20; Start 06/10/17 at 14:30 Pyridostigmine [place] (Mestinon) 120 mg Q6H PO Last administered on 08:47; Start 06/14/17 at 09:00 Senna/Docusate Sodium (Ramona-Colace) 1 tab BID PO Last administered on 08:47; Start 06/10/17 at 21:00 Sennosides (Senokot) 17.2 mg Q12H PRN PO Moderate constipation; Start at 14:30 Sodium Chloride 250 ml @ 15 mls/hr ONCE ONCE IV ; Start 06/14/17 at 09:15; Stop 06/15/17 at 01:54 Sodium Chloride (NS Flush) 10 ml UNSCH PRN IV FLUSH FLUSH AFTER USING IV ACCESS ; Start 06/13/17 at 16:00 Urinary Catheter: No Vascular Central Line Catheter: No A/P Assessment and Plan 86-year-old male with past history of colon cancer (treated), hyperlipidemia, prostate cancer (treated), recurrent dysphagia, myasthenia gravis who presented for dysphagia and slurred speech. Currently without other neurological neurological deficits. Head CT without acute intracranial abnormality. Patient personally deferred MRI at admission. Discharge Planning Anticipate discharge once pt is back at baseline, pending additional recommendations from neurology and hematology. May require many treatments with plasma exchange, initiated 06/13. Problem List: (1) Myasthenia gravis ICD Codes: G70.00 - Myasthenia gravis Status: Chronic Plan: Airway is protected but dysarthria and dysphagia stable Worse since 06/11 afternoon per pt report VasCath placed 06/13 AM Plasmapheresis scheduled to start 06/13 at 3pm Hematology managing plasmapheresis orders. He will have plasmapheresis every other day Patient will need to have a goal fibrinogen > 100 per hematology given his history of small brain bleed after previous positive pheresis treatments. Cryoprecipitate will be administered today given his fibrinogen was 98 Hospital Course: Dysarthria and dysphasia similar to past episodes of myasthenia flare-ups. CT without acute process. Patient deferred MRI at admission. Self-reported slurred speech, not overtly recognizable on exam, otherwise no focal neurological deficits. Pt reports that his speech is improving. * Neuro checks every 4hr * Neurology consulted, appreciate recommendations * Mestinon 90mg Q4hrs * Consider IVIG and plasmapheresis based on response * Out of bed as tolerated * Hematology, Dr. Garcia, consulted, appreciate recommendations * Continue management of myasthenia as below * Monitor for signs concerning for stroke Permanent Comment: Dysphagia; elevated acetycholine recept bind AB elevated, striated muscle ab + Last Edited By: Chris Doherty on Aug 26, 2014 13:53 (2) Dysarthria ICD Codes: R47.1 - Dysarthria and anarthria Status: Acute Plan: As above (3) Bicytopenia ICD Codes: D75.89 - Other specified diseases of blood and blood-forming organs Status: Acute Plan: On admission WBC count 3.8, RBC 3.78. Stable * Follow-up peripheral blood smear, results pending. * Currently without signs of infection (4) FEN Plan: Fluids * NS 75mls/hr, consider decreasing if pt has sufficient PO intake Electrolytes * Monitor and replete as needed Nutrition * Heart healthy diet, soft Prophylaxis * SCDs, heparin Nida Cardona MD R2 Jun 14, 2017 10:55
[2017-06-14 17:35] LABS: APTT (PATIENT) 28.3 SEC (24.3-30.1); INTERNATIONAL NORMALIZED RATIO 1.1 RATIO; PROTHROMBIN TIME - PATIENT 11.7 SEC (9.8-11.6)
[2017-06-14 20:18] LABS: BLOOD, URINE NEG (NEG); COMMENT (UR) CULT NOT INDICATED; CULTURE IF INDICATED CULT NOT INDICATED; GLUCOSE,URINE NEG (NEG); KETONE, URINE TRACE mg/dL (NEG); MUCUS URINE FEW /lpf (OCC); NITRITE,URINE NEG (NEG); PH, URINE 6.5 (5.0-8.5); URINE COLOR LIGHT-YELLOW (YELLW/STRAW)
[2017-06-15] VITALS (7 sets, daily range): BP systolic 129–168; BP diastolic 60–99; PULSE 62–90; RESP 16–20; TEMP 97.3–97.9; O2SAT 94–99
[2017-06-15] MEDS: ALPRAZolam 0.25 MG TAB PO PRN ×2 (00:18→22:11)
[2017-06-15] MEDS: ONDANSETRON HCL 4 MG/2 ML VIAL IVP PRN (00:19)
[2017-06-15] MEDS: PYRIDOSTIGMINE BROMIDE 60 MG TAB PO SCH ×3 (03:12→18:33)
--- NOTE | 2017-06-15 07:18 | HHI.PR ---
Objective Vital Signs Date Time Temp Pulse Resp B/P (MAP) Pulse Ox O2 Delivery O2 Flow Rate FiO2 06/15/17 04:00 97.3 62 18 129/99 (109) 94 06/15/17 00:00 97.9 63 18 150/72 (98) 96 06/14/17 20:00 97.5 70 18 146/68 (94) 98 06/14/17 16:00 95.7 62 20 151/72 (98) 99 06/14/17 12:00 96.1 66 20 154/70 (98) 97 06/14/17 11:30 95.8 68 16 133/68 94 06/14/17 10:56 95.6 67 16 150/72 06/14/17 08:00 98.0 74 20 166/84 (111) 97 I/O 06/14/17 06/14/17 06/14/17 06/15/17 06/15/17 06/15/17 07:00 15:00 23:00 07:00 15:00 23:00 Intake Total 1532 ml Balance 1532 ml Intake Oral 480 ml IV Total 602 ml Cryoprecipitate 450 ml # Voids 5 5 3 1 # Bowel Movements 1 Result Diagram: 06/14/17 0543 06/13/17 0535 Objective Remarks speech slightly less dysarthric awake alert was oob yest his mestinon needss to be b4 mealtimes not at midnight i dw nursing Assessment and Plan Assessment and Plan imp he has polyuria on this dose of mestinon so change back to 120 tid he thinks steroids alsways makes him worse so dc it watch for bleeding on pex s/p one as had sah last time from hypocoagulable on it i held sq he for now oob with PT he will call me as soon as he gets worse and i can pex sooner from now on last pex 09/14 i will dw Mickey Cheung MD Jun 15, 2017 07:18
[2017-06-15] MEDS: SODIUM CHLORIDE 0.9% FLUSH 10 ML FLUSH IV FLUSH SCH ×2 (08:23→21:00)
[2017-06-15] MEDS: DOCUSATE SODIUM 50 MG/SENNA 8.6 MG TAB PO SCH ×2 (08:32→22:11)
--- NOTE | 2017-06-15 10:08 | PD.ONC.PN ---
Subjective Subjective Remarks Afebrile overnight. Patient resting in bed. States he is feeling nauseated because his Mestinon was given too early before he could eat. He feels that his speech has improved. Swallowing about the same. Objective Data Date Time Temp Pulse Resp B/P (MAP) Pulse Ox O2 Delivery O2 Flow Rate FiO2 06/15/17 08:41 97.8 64 20 131/60 (83) 94 06/15/17 07:18 62 06/15/17 04:00 97.3 62 18 129/99 (109) 94 06/15/17 00:00 97.9 63 18 150/72 (98) 96 06/14/17 20:00 97.5 70 18 146/68 (94) 98 06/14/17 16:00 95.7 62 20 151/72 (98) 99 06/14/17 12:00 96.1 66 20 154/70 (98) 97 06/14/17 11:30 95.8 68 16 133/68 94 06/14/17 10:56 95.6 67 16 150/72 Result Diagram: 06/14/17 0543 06/13/17 0535 Laboratory Results Laboratory Tests Test 06/14/17 14:47 06/14/17 19:30 Prothrombin Time 11.7 SEC Prothromb Time International Ratio 1.1 RATIO Activated Partial Thromboplast Time 28.3 SEC Fibrinogen 243 mg/dL Urine Color LIGHT-YELLOW Urine Turbidity CLEAR Urine pH 6.5 Urine Specific [place] 1.013 Urine Protein TRACE mg/dL Urine Glucose (UA) NEG mg/dL Urine Ketones TRACE mg/dL Urine Occult Blood NEG Urine Nitrite NEG Urine Bilirubin NEG Urine Urobilinogen LESS THAN 2.0 MG/DL Urine Leukocyte Esterase NEG Urine WBC LESS THAN 1 /hpf Urine Mucus FEW /lpf Microscopic Urinalysis Comment CULT NOT INDICATED Administered Medications Medications (Trade) Dose Ordered Sig/Brock Route PRN Reason Start Time Stop Time Status Last Admin Dose Admin Sodium Chloride (NS Flush) 2 ml BID IV FLUSH 06/10/17 21:00 06/14/17 21:00 Ondansetron HCl (Zofran Inj) 4 mg Q6H PRN IVP NAUSEA OR VOMITING 06/10/17 14:30 06/15/17 00:19 Senna/Docusate Sodium (Ramona-Colace) 1 tab BID PO 06/10/17 21:00 06/14/17 08:47 Alprazolam (Xanax) 0.25 mg DAILY PRN PO ANXIETY 06/10/17 22:00 06/15/17 00:18 Sodium Chloride 1,000 ml @ 75 mls/hr [id number] IV 06/11/17 15:31 06/14/17 08:47 Albumin Human 3,200 ml @ 250 mls/hr Q48H IV 06/13/17 17:00 06/22/17 05:47 06/13/17 19:44 Calcium Gluconate 3 gm/Sodium Chloride 180 ml @ 60 mls/hr Q48H IV 06/13/17 17:00 06/21/17 19:59 06/13/17 19:44 Anticoagulant Citrate Dextose Brandy A (Acd Formula Inj) 1,000 ml Q48H OTHER 06/13/17 17:00 06/21/17 17:01 06/13/17 19:45 Pyridostigmine [place] (Mestinon) 120 mg Q6H PO 06/14/17 09:00 06/15/17 03:12 Objective Remarks GENERAL: Pleasant elderly male upright in bed in nad. Eating breakfast. SKIN: Warm and dry. vas-cath in place, right neck. HEAD: Normocephalic. EYES: No injection or drainage. NECK: Supple, trachea midline. CARDIOVASCULAR: Regular rate and rhythm RESPIRATORY: Breath sounds equal bilaterally. No accessory muscle use. GASTROINTESTINAL: Abdomen soft, non-tender, nondistended. EXTREMITIES: No cyanosis NEUROLOGICAL: awake and alert, garbled speech. Assessment/Plan Problem List: (1) Myasthenia gravis ICD Codes: G70.00 - Myasthenia gravis Status: Chronic Plan: 06/15: will replace plasma with FFP d/t patient's history of SAH. PEX order corrected in paper chart and order sent to dialysis/plasma exchange nurse. 06/14: off day. fibrinogen 98. coags prolonged. will give 1 unit cryo and recheck coags this afternoon. 06/13: vas-cath placed this AM. starting plasma exchange today. --currently on Mestinon and solu-medrol Permanent Comment: Dysphagia; elevated acetycholine recept bind AB elevated, striated muscle ab + Last Edited By: Chris Doherty on Aug 26, 2014 13:53 Assessment 86y/o male with myasthenia gravis, admitted for exacerbation history of colon cancer status post surgery followed by chemotherapy. Prostate cancer on intermittent Lupron therapy. He has stage IV prostate cancer. Mild anemia and leukopenia which is chronic and due to B12 deficiency. Attending Statement The exam, history, and the medical decision-making described in the above note were completed with the assistance of the mid-level provider. I reviewed and agree with the findings presented. I attest that I had a [id number] encounter with the patient on the same day, and personally performed and documented my assessment and findings in the medical record. speech is better Dyspahgia same c/o nausea ( mestinonin related. ) RN will call pharmacy to change the times. second pheresis today. Instead of albumin will replace with Plasma due to previous H/O SAH with pheresis. Elly Grimaldo Jun 15, 2017 10:08 Gabriel Garcia MD Jun 15, 2017 17:23
[2017-06-15 10:49] LABS: AUTOMATED NEUTROPHIL # 3.9 TH/MM3 (1.8-7.7); BASOPHIL % 0.2 % (0.0-2.0); EOSINOPHIL % 0.3 % (0.0-4.0); HEMATOCRIT 37.3 % (39.0-51.0); HEMO FLAGS DIFF FINAL; LYMPHOCYTE # 0.4 TH/MM3 (1.0-4.8); MEAN CELL VOLUME 93.2 FL (80.0-100.0); MEAN CORPUSCULAR HEMOGLOBIN 30.6 PG (27.0-34.0); MEAN CORPUSCULAR HGB CONC 32.9 % (32.0-36.0); MONO % 10.6 % (0.0-8.0); NEUT % 79.9 % (16.0-70.0); PLATELET COUNT 112 TH/MM3 (150-450); RED CELL DISTRIBUTION WIDTH 14.4 % (11.6-17.2); WHITE BLOOD COUNT 4.9 TH/MM3 (4.0-11.0)
[2017-06-15 10:52] LABS: INTERNATIONAL NORMALIZED RATIO 1.1 RATIO
--- NOTE | 2017-06-15 12:06 | HHI.FPPN ---
Subjective Remarks Patient was sitting out of bed on chair, shaving. Appears well. He was concerned about loose stools last night at 0300 after taking Pyridostigmine bromide. He is requesting to take this only with meals. He denies chest pain, worsening dysphagia, fevers, chills, or new SOB. He is hoping that the plasmapheresis will work as it has in the past. Objective Vitals Vital Signs Date Time Temp Pulse Resp B/P (MAP) Pulse Ox O2 Delivery O2 Flow Rate FiO2 06/15/17 08:41 97.8 64 20 131/60 (83) 94 06/15/17 07:18 62 06/15/17 04:00 97.3 62 18 129/99 (109) 94 06/15/17 00:00 97.9 63 18 150/72 (98) 96 06/14/17 20:00 97.5 70 18 146/68 (94) 98 06/14/17 16:00 95.7 62 20 151/72 (98) 99 I/O 06/14/17 06/14/17 06/14/17 06/15/17 06/15/17 06/15/17 07:00 15:00 23:00 07:00 15:00 23:00 Intake Total 1532 ml Balance 1532 ml Intake Oral 480 ml IV Total 602 ml Cryoprecipitate 450 ml # Voids 5 5 3 1 2 # Bowel Movements 1 Result Diagram: 06/15/17 0932 06/13/17 0535 Objective Remarks GENERAL: This is a well-nourished, well-developed patient, in no apparent distress. Sitting up eating breakfast. Speech even more muffled today. SKIN: No rashes. Cool and dry. HEAD: Atraumatic. Normocephalic. EYES: Extraocular motions intact. No scleral icterus. No injection or drainage. ENT: Nose without bleeding, purulent drainage or septal hematoma. Uvula midline. Airway patent but increased secretions noted, pt intermittently uses OG tube suction for comfort. NECK: Trachea midline. CARDIOVASCULAR: Regular rate and rhythm without gallops, or rubs. Soft 1/6 systolic murmur. RESPIRATORY: Clear to auscultation, nonlabored. Breath sounds equal bilaterally. No wheezes, rales, or rhonchi. GASTROINTESTINAL: Abdomen soft, non-tender, nondistended. No hepato-splenomegaly , or palpable masses. No guarding. Recent surgical scar in right inguinal area from recent hernia repair, no erythema/swelling/tenderness/discharge, well healing. MUSCULOSKELETAL: Extremities without clubbing, cyanosis, or edema. No joint tenderness, effusion, or edema noted. No calf tenderness. NEUROLOGICAL: Awake and alert. Cranial nerves II through XII intact. Motor and sensory grossly within normal limits. Speech slow, muffled. He is slurring the speech now. A/P Assessment and Plan 86-year-old male with past history of colon cancer (treated), hyperlipidemia, prostate cancer (treated), recurrent dysphagia, myasthenia gravis who presented for dysphagia and slurred speech. Currently without other neurological neurological deficits. Head CT without acute intracranial abnormality. Patient personally deferred MRI at admission. Discharge Planning Anticipate discharge once pt is back at baseline, pending additional recommendations from neurology and hematology. May require many treatments with plasma exchange, initiated 06/13. Problem List: (1) Myasthenia gravis ICD Codes: G70.00 - Myasthenia gravis Status: Chronic Plan: Airway is protected but dysarthria and dysphagia stable Worse since 06/11 afternoon per pt report VasCath placed 06/13 AM Plasmapheresis scheduled to start 06/13 at 3pm Hematology managing plasmapheresis orders. He will have plasmapheresis every other day Patient will need to have a goal fibrinogen > 100 per hematology given his history of small brain bleed after previous positive pheresis treatments. Cryoprecipitate administered this hospitalization - fibrinogen 06/15 = 223. Hospital Course: Dysarthria and dysphasia similar to past episodes of myasthenia flare-ups. CT without acute process. Self-reported slurred speech, not overtly recognizable on exam, otherwise no focal neurological deficits. Pt reports that his speech is improving. * Neuro checks every 4hr * Neurology consulted, appreciate recommendations * Mestinon 90mg Q4hrs (may switch to with meals given side effects) * Out of bed as tolerated * Hematology, Dr. Garcia, consulted, appreciate recommendations * Continue management of myasthenia as below * Monitor for signs concerning for stroke Permanent Comment: Dysphagia; elevated acetycholine recept bind AB elevated, striated muscle ab + Last Edited By: Chris Doherty on Aug 26, 2014 13:53 (2) Dysarthria ICD Codes: R47.1 - Dysarthria and anarthria Status: Acute Plan: As above (3) Bicytopenia ICD Codes: D75.89 - Other specified diseases of blood and blood-forming organs Status: Acute Plan: WBCs 4.9 / Hg 12.3 * Peripheral blood smear showing normal leukopenia and normocytic anemia. * Currently without signs of infection (4) FEN Plan: Fluids * NS 75mls/hr, consider decreasing if pt has sufficient PO intake Electrolytes * Monitor and replete as needed Nutrition * Heart healthy diet, soft Prophylaxis * SCDs, heparin WDW Dr. Doe. Doc Mcdonnell MD, R3 Jun 15, 2017 12:06
[2017-06-15] MEDS: SODIUM CHLOR 0.9% 1000 ML INJ 1,000 ML IV SCH (22:11)
[2017-06-16] VITALS (8 sets, daily range): BP systolic 110–157; BP diastolic 54–74; PULSE 61–75; RESP 16–18; TEMP 97.6–98.7; O2SAT 93–99
[2017-06-16] MEDS: SODIUM CHLOR 0.9% 1000 ML INJ 1,000 ML IV SCH ×3 (02:08→11:28)
--- NOTE | 2017-06-16 07:43 | HHI.PR ---
Subjective Remarks sp 2 pex Objective Vital Signs Date Time Temp Pulse Resp B/P (MAP) Pulse Ox O2 Delivery O2 Flow Rate FiO2 06/16/17 05:30 98.4 66 16 111/66 (81) 95 06/16/17 00:33 98.7 72 16 110/54 (72) 95 06/15/17 20:30 97.3 90 16 131/60 (83) 95 06/15/17 16:35 97.9 68 18 145/67 (93) 99 06/15/17 12:49 97.6 64 17 168/72 (104) 99 06/15/17 08:41 97.8 64 20 131/60 (83) 94 I/O 06/15/17 06/15/17 06/15/17 06/16/17 06/16/17 06/16/17 07:00 15:00 23:00 07:00 15:00 23:00 Intake Total 360 ml Output Total 250 ml 200 ml Balance 110 ml -200 ml Intake Oral 360 ml Output Urine Total 250 ml 200 ml # Voids 1 2 1 Result Diagram: 06/15/17 0932 06/13/17 0535 Objective Remarks speech less dysarthric eye closure still weak a little better awake alert was oob yest Assessment and Plan Assessment and Plan imp he has polyuria on this dose of mestinon so change back to 120 tid he thinks steroids alsways makes him worse so dc it watch for bleeding on pex s/p one as had sah last time from hypocoagulable on it i held sq he for now oob with PT he will call me as soon as he gets worse and i can pex sooner from now on last pex 09/14 i will dw heme 06/16/17 looks better oob us neg Mickey Loyola MD Jun 16, 2017 07:43
[2017-06-16] MEDS: PYRIDOSTIGMINE BROMIDE 60 MG TAB PO SCH ×3 (07:57→16:13)
[2017-06-16] MEDS: DOCUSATE SODIUM 50 MG/SENNA 8.6 MG TAB PO SCH ×2 (07:58→21:33)
[2017-06-16] MEDS: SODIUM CHLORIDE 0.9% FLUSH 10 ML FLUSH IV FLUSH SCH ×2 (07:58→21:00)
[2017-06-16 08:57] LABS: BASOPHIL % 0.3 % (0.0-2.0); EOSINOPHIL # 0.1 TH/MM3 (0-0.4); EOSINOPHIL % 3.2 % (0.0-4.0); HEMATOCRIT 33.6 % (39.0-51.0); LYMPH % 16.5 % (9.0-44.0); LYMPHOCYTE # 0.5 TH/MM3 (1.0-4.8); MEAN CELL VOLUME 92.7 FL (80.0-100.0); MEAN CORPUSCULAR HEMOGLOBIN 30.7 PG (27.0-34.0); MEAN CORPUSCULAR HGB CONC 33.1 % (32.0-36.0); MONO % 12.3 % (0.0-8.0); NEUT % 67.7 % (16.0-70.0); PLATELET COUNT 97 TH/MM3 (150-450); RED BLOOD COUNT 3.62 MIL/MM3 (4.50-5.90); RED CELL DISTRIBUTION WIDTH 14.6 % (11.6-17.2)
[2017-06-16 09:04] LABS: HEMO FLAGS AUTO DIFF
[2017-06-16 09:09] LABS: INTERNATIONAL NORMALIZED RATIO 1.1 RATIO; PROTHROMBIN TIME - PATIENT 12.1 SEC (9.8-11.6)
[2017-06-16 09:53] LABS: SCAN/DIFF AUTO DIFF CONFIRMED
[2017-06-16 09:54] LABS: PLATELET ESTIMATE SMEAR LOW (NORMAL); PLATELET MORPHOLOGY NORMAL (NORMAL)
--- NOTE | 2017-06-16 11:17 | HHI.FPPN ---
Subjective Remarks Patient was in his him this morning. His speech is improved and the swallowing has improved as well but the speech has made much more progress in the swelling. Pured diet and requesting speech evaluation. He has had no shortness of breath, chest pain, nausea or vomiting. He has noted no new bleeding. Objective Vitals Vital Signs Date Time Temp Pulse Resp B/P (MAP) Pulse Ox O2 Delivery O2 Flow Rate FiO2 06/16/17 09:19 62 06/16/17 08:00 97.8 75 18 135/61 (85) 93 06/16/17 05:30 98.4 66 16 111/66 (81) 95 06/16/17 00:33 98.7 72 16 110/54 (72) 95 06/15/17 20:30 97.3 90 16 131/60 (83) 95 06/15/17 16:35 97.9 68 18 145/67 (93) 99 06/15/17 12:49 97.6 64 17 168/72 (104) 99 I/O 06/15/17 06/15/17 06/15/17 06/16/17 06/16/17 06/16/17 07:00 15:00 23:00 07:00 15:00 23:00 Intake Total 360 ml Output Total 250 ml 200 ml Balance 110 ml -200 ml Intake Oral 360 ml Output Urine Total 250 ml 200 ml # Voids 1 2 1 Result Diagram: 06/16/17 0714 06/13/17 0535 Imaging Last Impressions Catheter Placement X-Ray 06/13/17 0000 Signed Impressions: Service Date/Time: Tuesday, June 13, 2017 09:18 - CONCLUSION: Vas-Cath placement via the right internal jugular vein. Ponce Simental MD Head CT 06/10/17 0000 Signed Impressions: Service Date/Time: Saturday, June 10, 2017 13:35 - CONCLUSION: 1. No acute intracranial abnormality. 2. Atrophy and chronic small vessel ischemic change. Agustin Guajardo Jr., MD Objective Remarks GENERAL: This is a well-nourished, well-developed patient, in no apparent distress. Sitting up eating breakfast. Speech has improved significantly. SKIN: No rashes. Cool and dry. HEAD: Atraumatic. Normocephalic. EYES: Extraocular motions intact. No scleral icterus. No injection or drainage. ENT: Nose without bleeding, purulent drainage or septal hematoma. Uvula midline. Airway patent but increased secretions noted, pt intermittently uses OG tube suction for comfort. NECK: Trachea midline. CARDIOVASCULAR: Regular rate and rhythm without gallops, or rubs. Soft 1/6 systolic murmur. RESPIRATORY: Clear to auscultation, nonlabored. Breath sounds equal bilaterally. No wheezes, rales, or rhonchi. GASTROINTESTINAL: Abdomen soft, non-tender, nondistended. No hepato-splenomegaly , or palpable masses. No guarding. Recent surgical scar in right inguinal area from recent hernia repair, no erythema/swelling/tenderness/discharge, well healing. MUSCULOSKELETAL: Extremities without clubbing, cyanosis, or edema. No joint tenderness, effusion, or edema noted. No calf tenderness. NEUROLOGICAL: Awake and alert. Cranial nerves II through XII intact. Motor and sensory grossly within normal limits. Speech slow, muffled. He is slurring the speech now. Medications and IVs Last Impressions Catheter Placement X-Ray 06/13/17 0000 Signed Impressions: Service Date/Time: Tuesday, June 13, 2017 09:18 - CONCLUSION: Vas-Cath placement via the right internal jugular vein. Ponce Simental MD Head CT 06/10/17 0000 Signed Impressions: Service Date/Time: Saturday, June 10, 2017 13:35 - CONCLUSION: 1. No acute intracranial abnormality. 2. Atrophy and chronic small vessel ischemic change. Agustin Guajardo Jr., MD Urinary Catheter: No Vascular Central Line Catheter: No A/P Assessment and Plan 86-year-old male with past history of colon cancer (treated), hyperlipidemia, prostate cancer (treated), recurrent dysphagia, myasthenia gravis who presented for dysphagia and slurred speech. Currently without other neurological neurological deficits. Head CT without acute intracranial abnormality. Patient personally deferred MRI at admission. Discharge Planning Anticipate discharge once pt is back at baseline, pending additional recommendations from neurology and hematology. Currently receiving plasma exchange, initiated 06/13. Problem List: (1) Myasthenia gravis ICD Codes: G70.00 - Myasthenia gravis Status: Chronic Plan: Dysarthria and dysphagia improved after second treatment VasCath placed 10/16 AM Plasmapheresis 06/13 and 06/15 Hematology managing plasmapheresis orders. He will have plasmapheresis every other day Patient will need to have a goal fibrinogen > 100 per hematology given his history of small brain bleed after previous positive pheresis treatments. Cryoprecipitate administered 06/16 Hospital Course: Dysarthria and dysphasia similar to past episodes of myasthenia flare-ups. CT without acute process. Self-reported slurred speech, not overtly recognizable on exam, otherwise no focal neurological deficits. Pt reports that his speech is improving. * Neuro checks every 4hr * Neurology consulted, appreciate recommendations * Mestinon dosing per Neuro (may switch to with meals given side effects) * Out of bed as tolerated * Hematology, Dr. Garcia, consulted, appreciate recommendations * Continue management of myasthenia as below * Monitor for signs concerning for stroke Permanent Comment: Dysphagia; elevated acetycholine recept bind AB elevated, striated muscle ab + Last Edited By: Chris Doherty on Aug 26, 2014 13:53 (2) Dysarthria ICD Codes: R47.1 - Dysarthria and anarthria Status: Acute Plan: As above (3) Pancytopenia ICD Codes: D61.818 - Other pancytopenia Status: Acute Plan: Possibly related to plasma exchange, autoimmune. No signs of infection. Neutrophils normal * Peripheral blood smear showing normal leukopenia and normocytic anemia. * Currently without signs of infection (4) FEN Plan: Fluids * NS 75mls/hr, consider decreasing if pt has sufficient PO intake Electrolytes * Monitor and replete as needed Nutrition * Heart healthy diet, soft Prophylaxis * SCDs, heparin Nida Cardona MD R2 Jun 16, 2017 11:17
--- NOTE | 2017-06-16 11:33 | PD.ONC.PN ---
Subjective Subjective Remarks Afebrile overnight. Patient resting in bed in nad. No complaints. Reporting improved speech. Objective Data Date Time Temp Pulse Resp B/P (MAP) Pulse Ox O2 Delivery O2 Flow Rate FiO2 06/16/17 09:19 62 06/16/17 08:00 97.8 75 18 135/61 (85) 93 06/16/17 05:30 98.4 66 16 111/66 (81) 95 06/16/17 00:33 98.7 72 16 110/54 (72) 95 06/15/17 20:30 97.3 90 16 131/60 (83) 95 06/15/17 16:35 97.9 68 18 145/67 (93) 99 06/15/17 12:49 97.6 64 17 168/72 (104) 99 Result Diagram: 06/16/17 0714 06/13/17 0535 Laboratory Results Laboratory Tests Test 06/16/17 07:11 06/16/17 07:14 Prothrombin Time 12.1 SEC Prothromb Time International Ratio 1.1 RATIO Activated Partial Thromboplast Time 27.0 SEC Fibrinogen 198 mg/dL White Blood Count 3.0 TH/MM3 Red Blood Count 3.62 MIL/MM3 Hemoglobin 11.1 GM/DL Hematocrit 33.6 % Mean Corpuscular Volume 92.7 FL Mean Corpuscular Hemoglobin 30.7 PG Mean Corpuscular Hemoglobin Concent 33.1 % Red Cell Distribution Width 14.6 % Platelet Count 97 TH/MM3 Mean Platelet Volume 8.6 FL Neutrophils (%) (Auto) 67.7 % Lymphocytes (%) (Auto) 16.5 % Monocytes (%) (Auto) 12.3 % Eosinophils (%) (Auto) 3.2 % Basophils (%) (Auto) 0.3 % Neutrophils # (Auto) 2.0 TH/MM3 Lymphocytes # (Auto) 0.5 TH/MM3 Monocytes # (Auto) 0.4 TH/MM3 Eosinophils # (Auto) 0.1 TH/MM3 Basophils # (Auto) 0.0 TH/MM3 CBC Comment AUTO DIFF Differential Comment AUTO DIFF CONFIRMED Platelet Estimate LOW Platelet Morphology Comment NORMAL Administered Medications Medications (Trade) Dose Ordered Sig/Brock Route PRN Reason Start Time Stop Time Status Last Admin Dose Admin Sodium Chloride (NS Flush) 2 ml BID IV FLUSH 06/10/17 21:00 06/14/17 21:00 Ondansetron HCl (Zofran Inj) 4 mg Q6H PRN IVP NAUSEA OR VOMITING 06/10/17 14:30 06/15/17 00:19 Senna/Docusate Sodium (Ramona-Colace) 1 tab BID PO 06/10/17 21:00 06/16/17 07:58 Alprazolam (Xanax) 0.25 mg DAILY PRN PO ANXIETY 06/10/17 22:00 06/15/17 22:11 Sodium Chloride 1,000 ml @ 75 mls/hr [id number] IV 06/11/17 15:31 06/16/17 11:27 Albumin Human 3,200 ml @ 250 mls/hr Q48H IV 06/13/17 17:00 06/22/17 05:47 06/13/17 19:44 Calcium Gluconate 3 gm/Sodium Chloride 180 ml @ 60 mls/hr Q48H IV 06/13/17 17:00 06/21/17 19:59 06/13/17 19:44 Anticoagulant Citrate Dextose Brandy A (Acd Formula Inj) 1,000 ml Q48H OTHER 06/13/17 17:00 06/21/17 17:01 06/13/17 19:45 Pyridostigmine [place] (Mestinon) 120 mg TIDAC PO 06/15/17 17:00 06/16/17 11:27 Objective Remarks GENERAL: Elderly male upright in bed eating breakfast. SKIN: Warm and dry. vas-cath, right neck. HEAD: Normocephalic. EYES: No injection or drainage. NECK: Supple, trachea midline. CARDIOVASCULAR: Regular rate and rhythm RESPIRATORY: Breath sounds equal bilaterally. No accessory muscle use. GASTROINTESTINAL: Abdomen soft, non-tender, nondistended. EXTREMITIES: No cyanosis NEUROLOGICAL: awake and alert, improved speech. moving all extremities. Assessment/Plan Problem List: (1) Myasthenia gravis ICD Codes: G70.00 - Myasthenia gravis Status: Chronic Plan: 06/16: off day. monitor coags, fibrinogen, platelets. 06/15: PEX #2 will replace plasma with FFP d/t patient's history of SAH. PEX order corrected in paper chart and order sent to dialysis/plasma exchange nurse. 06/14: off day. fibrinogen 98. coags prolonged. will give 1 unit cryo and recheck coags this afternoon. 06/13: vas-cath placed this AM. starting plasma exchange today. --currently on Mestinon and solu-medrol Permanent Comment: Dysphagia; elevated acetycholine recept bind AB elevated, striated muscle ab + Last Edited By: Chris Doherty on Aug 26, 2014 13:53 Assessment 86y/o male with myasthenia gravis, admitted for exacerbation history of colon cancer status post surgery followed by chemotherapy. Prostate cancer on intermittent Lupron therapy. He has stage IV prostate cancer. Mild anemia and leukopenia which is chronic and due to B12 deficiency. Attending Statement speech is improving coags are ok after 2nd PEX continue PEX QOD Elly Grimaldo Jun 16, 2017 11:33 Gabriel Garcia MD Jun 17, 2017 06:23
[2017-06-16] MEDS: ALPRAZolam 0.25 MG TAB PO PRN (22:52)
[2017-06-17] VITALS (7 sets, daily range): BP systolic 117–178; BP diastolic 57–79; PULSE 55–70; RESP 16–18; TEMP 97.2–98.2; O2SAT 95–100
[2017-06-17] MEDS: SODIUM CHLOR 0.9% 1000 ML INJ 1,000 ML IV SCH ×2 (04:10→20:22)
[2017-06-17 06:26] LABS: AUTOMATED NEUTROPHIL # 1.4 TH/MM3 (1.8-7.7); BASOPHIL % 0.5 % (0.0-2.0); EOSINOPHIL # 0.2 TH/MM3 (0-0.4); EOSINOPHIL % 8.5 % (0.0-4.0); HEMATOCRIT 30.8 % (39.0-51.0); LYMPH % 18.5 % (9.0-44.0); LYMPHOCYTE # 0.4 TH/MM3 (1.0-4.8); MEAN CELL VOLUME 92.8 FL (80.0-100.0); MEAN CORPUSCULAR HEMOGLOBIN 31.2 PG (27.0-34.0); MEAN CORPUSCULAR HGB CONC 33.7 % (32.0-36.0); MONO % 12.4 % (0.0-8.0); NEUT % 60.1 % (16.0-70.0); PLATELET COUNT 83 TH/MM3 (150-450); RED BLOOD COUNT 3.32 MIL/MM3 (4.50-5.90); RED CELL DISTRIBUTION WIDTH 14.4 % (11.6-17.2); WHITE BLOOD COUNT 2.3 TH/MM3 (4.0-11.0)
[2017-06-17 06:30] LABS: HEMO FLAGS AUTO DIFF
[2017-06-17 06:31] LABS: APTT (PATIENT) 27.5 SEC (24.3-30.1); INTERNATIONAL NORMALIZED RATIO 1.1 RATIO; PROTHROMBIN TIME - PATIENT 12.5 SEC (9.8-11.6)
[2017-06-17 06:49] LABS: BICARBONATE 33.4 MEQ/L (21.0-32.0); MAGNESIUM 1.6 MG/DL (1.5-2.5); POTASSIUM 3.4 MEQ/L (3.5-5.1)
[2017-06-17] MEDS: PYRIDOSTIGMINE BROMIDE 60 MG TAB PO SCH ×3 (08:14→16:26)
[2017-06-17] MEDS: DOCUSATE SODIUM 50 MG/SENNA 8.6 MG TAB PO SCH ×2 (08:14→20:23)
[2017-06-17] MEDS: SODIUM CHLORIDE 0.9% FLUSH 10 ML FLUSH IV FLUSH SCH ×2 (08:15→20:23)
--- NOTE | 2017-06-17 08:26 | HHI.PR ---
Subjective Remarks sp 2 pex # 3 today Objective Vital Signs Date Time Temp Pulse Resp B/P (MAP) Pulse Ox O2 Delivery O2 Flow Rate FiO2 06/17/17 05:50 97.6 60 18 132/63 (86) 95 06/17/17 00:55 98.0 67 18 125/57 (79) 96 06/16/17 20:54 97.6 73 18 115/57 (76) 97 06/16/17 18:00 68 06/16/17 16:27 97.9 61 18 125/56 (79) 99 06/16/17 12:00 97.9 75 18 157/74 (101) 99 06/16/17 09:19 62 I/O 06/16/17 06/16/17 06/16/17 06/17/17 06/17/17 06/17/17 07:00 15:00 23:00 07:00 15:00 23:00 Intake Total 780 ml Output Total 350 ml 300 ml Balance 430 ml -300 ml Intake Oral 780 ml Output Urine Total 350 ml 300 ml # Voids 1 # Bowel Movements 1 Result Diagram: 06/17/17 0552 06/17/17 0528 Objective Remarks speech less dysarthric still eye closure still weak a little better q day awake alert 12/31 t/o gait nl was oob daily Assessment and Plan Assessment and Plan imp he has polyuria on this dose of mestinon so change back to 120 tid he thinks steroids alsways makes him worse so dc it watch for bleeding on pex s/p one as had sah last time from hypocoagulable on it i held sq he for now oob with PT he will call me as soon as he gets worse and i can pex sooner from now on last pex 09/14 i will dw heme 06/16/17 looks better oob us neg 06/17/17 he looks better daily plt down 82 please monitor this it dropped last time in he may be able to dc tuesday and get a few pex outpt in [place]? up to heme for now keep in until tuesday at least i think we will do 7 or 8 pex or until voice totally nl Mickey Loyola MD Jun 17, 2017 08:26
[2017-06-17 08:34] LABS: SCAN/DIFF AUTO DIFF CONFIRMED
--- NOTE | 2017-06-17 12:09 | HHI.FPPN ---
Subjective Remarks Patient states that he is doing well this morning. He feels a significant improvement in his speech. His only concern is that his blood count levels are dropping. He states that he'll talk with the Heme team about this. He also expressed that he feels shortness of breath when he bends over, i.e. when he puts on his shoes. He also requests refresh eyedrops for eye dryness. No chest pain, no fevers or chills, no abdominal pain, no nausea or vomiting, no diarrhea or constipation. (Merlyn Jalloh MD R1) Objective Vitals Vital Signs Date Time Temp Pulse Resp B/P (MAP) Pulse Ox O2 Delivery O2 Flow Rate FiO2 06/17/17 09:07 55 06/17/17 09:05 97.2 65 18 178/79 (112) 96 06/17/17 05:50 97.6 60 18 132/63 (86) 95 06/17/17 00:55 98.0 67 18 125/57 (79) 96 06/16/17 20:54 97.6 73 18 115/57 (76) 97 06/16/17 18:00 68 06/16/17 16:27 97.9 61 18 125/56 (79) 99 I/O 06/16/17 06/16/17 06/16/17 06/17/17 06/17/17 06/17/17 07:00 15:00 23:00 07:00 15:00 23:00 Intake Total 780 ml Output Total 350 ml 300 ml Balance 430 ml -300 ml Intake Oral 780 ml Output Urine Total 350 ml 300 ml # Voids 1 # Bowel Movements 1 (Merlyn Jalloh MD R1) Result Diagram: 06/17/17 0552 06/17/17 0528 Imaging Last Impressions Catheter Placement X-Ray 06/13/17 0000 Signed Impressions: Service Date/Time: Tuesday, June 13, 2017 09:18 - CONCLUSION: Vas-Cath placement via the right internal jugular vein. Ponce Simental MD Head CT 06/10/17 0000 Signed Impressions: Service Date/Time: Saturday, June 10, 2017 13:35 - CONCLUSION: 1. No acute intracranial abnormality. 2. Atrophy and chronic small vessel ischemic change. Agustin Guajardo Jr., MD Objective Remarks GENERAL: This is a well-nourished, well-developed patient, in no apparent distress. Sitting up in chair. Speech has improved significantly. SKIN: No rashes. Cool and dry. HEAD: Atraumatic. Normocephalic. EYES: Extraocular motions intact. No scleral icterus. No injection or drainage. ENT: Nose without bleeding, purulent drainage or septal hematoma. Uvula midline. Airway patent but increased secretions noted, pt intermittently uses OG tube suction for comfort. NECK: Trachea midline. CARDIOVASCULAR: Regular rate and rhythm without gallops, or rubs. Soft 1/6 systolic murmur. RESPIRATORY: Clear to auscultation, nonlabored. Breath sounds equal bilaterally. No wheezes, rales, or rhonchi. GASTROINTESTINAL: Abdomen soft, non-tender, nondistended. No hepato-splenomegaly , or palpable masses. No guarding. Recent surgical scar in right inguinal area from recent hernia repair, no erythema/swelling/tenderness/discharge, well healing. MUSCULOSKELETAL: Extremities without clubbing, cyanosis, or edema. No joint tenderness, effusion, or edema noted. No calf tenderness. NEUROLOGICAL: Awake and alert. Cranial nerves II through XII intact. Motor and sensory grossly within normal limits. Speech slow, muffled. He is slurring the speech now. (Merlyn Jalloh MD R1) A/P Assessment and Plan 86-year-old male with past history of colon cancer (treated), hyperlipidemia, prostate cancer (treated), recurrent dysphagia, myasthenia gravis who presented for dysphagia and slurred speech. Currently without other neurological neurological deficits. Head CT without acute intracranial abnormality. Patient personally deferred MRI at admission. Discharge Planning Anticipate discharge once pt is back at baseline, pending additional recommendations from neurology and hematology. Currently receiving plasma exchange, initiated 06/13. (Merlyn Jalloh MD R1) Attending Attestation Patient seen and examined with Dr Jalloh,case discussed in detail,agree with contents of this note, See Orders. Patient concerned with certain aspects of lab results and case discussed with Heme/Onc steam fitter helper who will reassure patient. (Terence Doe MD) Problem List: (1) Myasthenia gravis ICD Codes: G70.00 - Myasthenia gravis Status: Chronic Plan: Dysarthria and dysphagia improved after second treatment VasCath placed 06/13 AM Plasmapheresis 06/13 and 06/15, next session likely tomorrow Hematology managing plasmapheresis orders. He will have plasmapheresis every other day. Held today due to pancytopenia. Patient will need to have a goal fibrinogen > 100 per hematology given his history of small brain bleed after previous positive pheresis treatments. Cryoprecipitate administered 06/16 Hospital Course: Dysarthria and dysphasia similar to past episodes of myasthenia flare-ups. CT without acute process. Self-reported slurred speech, not overtly recognizable on exam, otherwise no focal neurological deficits. Pt reports that his speech is improving. * Neuro checks every 4hr * Neurology consulted, appreciate recommendations * Mestinon dosing per Neuro (may switch to with meals given side effects) * Out of bed as tolerated * Hematology, Dr. Garcia, consulted, appreciate recommendations * Continue management of myasthenia as below * Monitor for signs concerning for stroke Permanent Comment: Dysphagia; elevated acetycholine recept bind AB elevated, striated muscle ab + Last Edited By: Chris Doherty on Aug 26, 2014 13:53 (2) Dysarthria ICD Codes: R47.1 - Dysarthria and anarthria Status: Acute Plan: As above (3) Pancytopenia ICD Codes: D61.818 - Other pancytopenia Status: Acute Plan: Possibly related to plasma exchange, autoimmune. No signs of infection. Neutrophils normal * Peripheral blood smear showing normal leukopenia and normocytic anemia. * Currently without signs of infection (4) FEN Plan: Fluids * NS 75mls/hr, consider decreasing if pt has sufficient PO intake Electrolytes * Monitor and replete as needed Nutrition * Heart healthy diet, soft Prophylaxis * SCDs, heparin (Merlyn Jalloh MD R1) Merlyn Jalloh MD R1 Jun 17, 2017 12:09 Terence Doe MD Jun 17, 2017 15:58
--- NOTE | 2017-06-17 12:26 | PD.ONC.PN ---
Subjective Subjective Remarks Afebrile overnight. Patient resting in room in nad. Speech improved. Swallowing improved. Objective Data Date Time Temp Pulse Resp B/P (MAP) Pulse Ox O2 Delivery O2 Flow Rate FiO2 06/17/17 09:07 55 06/17/17 09:05 97.2 65 18 178/79 (112) 96 06/17/17 05:50 97.6 60 18 132/63 (86) 95 06/17/17 00:55 98.0 67 18 125/57 (79) 96 06/16/17 20:54 97.6 73 18 115/57 (76) 97 06/16/17 18:00 68 06/16/17 16:27 97.9 61 18 125/56 (79) 99 Result Diagram: 06/17/17 0552 06/17/17 0528 Laboratory Results Laboratory Tests Test 06/17/17 05:28 06/17/17 05:52 Prothrombin Time 12.5 SEC Prothromb Time International Ratio 1.1 RATIO Activated Partial Thromboplast Time 27.5 SEC Fibrinogen 204 mg/dL Blood Urea Nitrogen 17 MG/DL Creatinine 0.77 MG/DL Random Glucose 100 MG/DL Calcium Level 8.3 MG/DL Magnesium Level 1.6 MG/DL Sodium Level 140 MEQ/L Potassium Level 3.4 MEQ/L Chloride Level 104 MEQ/L Carbon Dioxide Level 33.4 MEQ/L Anion Gap 3 MEQ/L Estimat Glomerular Filtration Rate 96 ML/MIN White Blood Count 2.3 TH/MM3 Red Blood Count 3.32 MIL/MM3 Hemoglobin 10.4 GM/DL Hematocrit 30.8 % Mean Corpuscular Volume 92.8 FL Mean Corpuscular Hemoglobin 31.2 PG Mean Corpuscular Hemoglobin Concent 33.7 % Red Cell Distribution Width 14.4 % Platelet Count 83 TH/MM3 Mean Platelet Volume 8.7 FL Neutrophils (%) (Auto) 60.1 % Lymphocytes (%) (Auto) 18.5 % Monocytes (%) (Auto) 12.4 % Eosinophils (%) (Auto) 8.5 % Basophils (%) (Auto) 0.5 % Neutrophils # (Auto) 1.4 TH/MM3 Lymphocytes # (Auto) 0.4 TH/MM3 Monocytes # (Auto) 0.3 TH/MM3 Eosinophils # (Auto) 0.2 TH/MM3 Basophils # (Auto) 0.0 TH/MM3 CBC Comment AUTO DIFF Differential Comment AUTO DIFF CONFIRMED Administered Medications Medications (Trade) Dose Ordered Sig/Brock Route PRN Reason Start Time Stop Time Status Last Admin Dose Admin Sodium Chloride (NS Flush) 2 ml BID IV FLUSH 06/10/17 21:00 06/17/17 08:15 Ondansetron HCl (Zofran Inj) 4 mg Q6H PRN IVP NAUSEA OR VOMITING 06/10/17 14:30 06/15/17 00:19 Senna/Docusate Sodium (Ramona-Colace) 1 tab BID PO 06/10/17 21:00 06/17/17 08:14 Alprazolam (Xanax) 0.25 mg DAILY PRN PO ANXIETY 06/10/17 22:00 06/16/17 22:52 Sodium Chloride 1,000 ml @ 75 mls/hr [id number] IV 06/11/17 15:31 06/17/17 04:10 Albumin Human 3,200 ml @ 250 mls/hr Q48H IV 06/13/17 17:00 06/22/17 05:47 06/13/17 19:44 Calcium Gluconate 3 gm/Sodium Chloride 180 ml @ 60 mls/hr Q48H IV 06/13/17 17:00 06/21/17 19:59 06/13/17 19:44 Anticoagulant Citrate Dextose Brandy A (Acd Formula Inj) 1,000 ml Q48H OTHER 06/13/17 17:00 06/21/17 17:01 06/13/17 19:45 Pyridostigmine [place] (Mestinon) 120 mg TIDAC PO 06/15/17 17:00 06/17/17 11:00 Objective Remarks GENERAL: Elderly male upright in chair next to bed in [facility]. SKIN: Warm and dry. vas-cath, right neck. HEAD: Normocephalic. EYES: No injection or drainage. NECK: Supple, trachea midline. CARDIOVASCULAR: Regular rate and rhythm RESPIRATORY: Breath sounds equal bilaterally. No accessory muscle use. GASTROINTESTINAL: Abdomen soft, non-tender, nondistended. EXTREMITIES: No cyanosis NEUROLOGICAL: aox3. normal speech. moving all extremities. Assessment/Plan Problem List: (1) Myasthenia gravis ICD Codes: G70.00 - Myasthenia gravis Status: Chronic Plan: 06/17: pancytopenia likely d/t dilution. However, will hold Plasma exchange today and monitor counts closely. If counts are improving tomorrow, plasma exchange could be resumed. 06/16: off day. monitor coags, fibrinogen, platelets. 06/15: PEX #2 will replace plasma with FFP d/t patient's history of SAH. PEX order corrected in paper chart and order sent to dialysis/plasma exchange nurse. 06/14: off day. fibrinogen 98. coags prolonged. will give 1 unit cryo and recheck coags this afternoon. 06/13: vas-cath placed this AM. starting plasma exchange today. --currently on Mestinon and solu-medrol Permanent Comment: Dysphagia; elevated acetycholine recept bind AB elevated, striated muscle ab + Last Edited By: Chris Doherty on Aug 26, 2014 13:53 Assessment 86y/o male with myasthenia gravis, admitted for exacerbation history of colon cancer status post surgery followed by chemotherapy. Prostate cancer on intermittent Lupron therapy. He has stage IV prostate cancer. Mild anemia and leukopenia which is chronic and due to B12 deficiency. Attending Statement The exam, history, and the medical decision-making described in the above note were completed with the assistance of the mid-level provider. I reviewed and agree with the findings presented. I attest that I had a [id number] encounter with the patient on the same day, and personally performed and documented my assessment and findings in the medical record Speech and swallowing both have improved hold off on the plasmapheresis today due to pancytopenia. Check CBC tomorrow. If better than resume PEX Elly Grimaldo Jun 17, 2017 12:26 Gabriel Garcia MD Jun 17, 2017 15:56
[2017-06-17] MEDS: CARBOXYMETHYLCELL SOD 0.5% OPTH SOLN 15 ML BTL EACH EYE PRN (16:43)
[2017-06-18] VITALS (8 sets, daily range): BP systolic 129–151; BP diastolic 60–81; PULSE 58–67; RESP 17–20; TEMP 97.3–98.3; O2SAT 96–98
[2017-06-18] MEDS: ALPRAZolam 0.25 MG TAB PO PRN ×2 (00:26→23:33)
[2017-06-18] MEDS: CARBOXYMETHYLCELL SOD 0.5% OPTH SOLN 15 ML BTL EACH EYE PRN (00:27)
[2017-06-18 06:38] LABS: AUTOMATED NEUTROPHIL # 1.7 TH/MM3 (1.8-7.7); BASOPHIL % 0.6 % (0.0-2.0); EOSINOPHIL # 0.2 TH/MM3 (0-0.4); EOSINOPHIL % 8.4 % (0.0-4.0); HEMATOCRIT 31.3 % (39.0-51.0); LYMPH % 16.4 % (9.0-44.0); LYMPHOCYTE # 0.4 TH/MM3 (1.0-4.8); MEAN CELL VOLUME 92.9 FL (80.0-100.0); MEAN CORPUSCULAR HGB CONC 33.3 % (32.0-36.0); MONO % 12.4 % (0.0-8.0); NEUT % 62.2 % (16.0-70.0); PLATELET COUNT 83 TH/MM3 (150-450); RED BLOOD COUNT 3.37 MIL/MM3 (4.50-5.90); RED CELL DISTRIBUTION WIDTH 14.2 % (11.6-17.2); WHITE BLOOD COUNT 2.7 TH/MM3 (4.0-11.0)
[2017-06-18 06:39] LABS: HEMO FLAGS AUTO DIFF
[2017-06-18 06:44] LABS: APTT (PATIENT) 46.7 SEC (24.3-30.1); INTERNATIONAL NORMALIZED RATIO 1.1 RATIO; PROTHROMBIN TIME - PATIENT 11.8 SEC (9.8-11.6)
[2017-06-18 07:08] LABS: MAGNESIUM 1.7 MG/DL (1.5-2.5); POTASSIUM 3.8 MEQ/L (3.5-5.1)
[2017-06-18 07:56] LABS: PLATELET ESTIMATE SMEAR LOW (NORMAL); PLATELET MORPHOLOGY NORMAL (NORMAL)
[2017-06-18 07:57] LABS: SCAN/DIFF AUTO DIFF CONFIRMED
[2017-06-18] MEDS: PYRIDOSTIGMINE BROMIDE 60 MG TAB PO SCH ×3 (08:04→16:38)
[2017-06-18] MEDS: DOCUSATE SODIUM 50 MG/SENNA 8.6 MG TAB PO SCH ×2 (08:04→20:43)
[2017-06-18] MEDS: SODIUM CHLORIDE 0.9% FLUSH 10 ML FLUSH IV FLUSH SCH ×2 (09:00→20:44)
--- NOTE | 2017-06-18 09:14 | HHI.FPPN ---
Subjective Remarks Examined this morning. He is eager to get plasmapheresis given today. He denies any worsening of his symptoms and in fact endorses improvement. Has not any bleeding episodes. He has maintenance fluids running and requests that he has fewer no IV fluids because he goes to the bathroom too often. No bowel complaints. Objective Vitals Vital Signs Date Time Temp Pulse Resp B/P (MAP) Pulse Ox O2 Delivery O2 Flow Rate FiO2 06/18/17 08:00 97.5 61 20 147/67 (93) 96 Manual Cuff/Auscultation 06/18/17 04:43 97.6 62 18 141/67 (91) 97 06/18/17 00:00 97.6 58 17 148/67 (94) 97 06/17/17 20:00 98.2 65 18 137/61 (86) 98 06/17/17 17:18 97.8 60 18 117/66 (83) 98 06/17/17 12:53 97.2 70 16 137/63 (87) 100 06/17/17 09:07 55 I/O 06/17/17 06/17/17 06/17/17 06/18/17 06/18/17 06/18/17 07:00 15:00 23:00 07:00 15:00 23:00 Intake Total 960 ml 630 ml Output Total 300 ml 800 ml 475 ml Balance 660 ml -170 ml -475 ml Intake Oral 960 ml IV Total 630 ml Output Urine Total 300 ml 800 ml 475 ml # Bowel Movements 0 0 Result Diagram: 06/18/17 0600 06/18/17 0600 Imaging Last Impressions Catheter Placement X-Ray 06/13/17 0000 Signed Impressions: Service Date/Time: Tuesday, June 13, 2017 09:18 - CONCLUSION: Vas-Cath placement via the right internal jugular vein. Ponce Simental MD Head CT 06/10/17 0000 Signed Impressions: Service Date/Time: Saturday, June 10, 2017 13:35 - CONCLUSION: 1. No acute intracranial abnormality. 2. Atrophy and chronic small vessel ischemic change. Agustin Guajardo Jr., MD Objective Remarks GENERAL: This is a well-nourished, well-developed patient, in no apparent distress. Sitting up in chair. Speech has improved significantly. SKIN: No rashes. Cool and dry. HEAD: Atraumatic. Normocephalic. EYES: Extraocular motions intact. No scleral icterus. No injection or drainage. ENT: Nose without bleeding, purulent drainage or septal hematoma. Uvula midline. Airway patent but increased secretions noted, pt intermittently uses OG tube suction for comfort. NECK: Trachea midline. CARDIOVASCULAR: Regular rate and rhythm without gallops, or rubs. Soft 1/6 systolic murmur. RESPIRATORY: Clear to auscultation, nonlabored. Breath sounds equal bilaterally. No wheezes, rales, or rhonchi. GASTROINTESTINAL: Abdomen soft, non-tender, nondistended. No hepato-splenomegaly , or palpable masses. No guarding. Recent surgical scar in right inguinal area from recent hernia repair, no erythema/swelling/tenderness/discharge, well healing. MUSCULOSKELETAL: Extremities without clubbing, cyanosis, or edema. No joint tenderness, effusion, or edema noted. No calf tenderness. NEUROLOGICAL: Awake and alert. Cranial nerves II through XII intact. Motor and sensory grossly within normal limits. Speech slow, muffled. He is slurring the speech now. Medications and IVs Inpatient Medications Acetaminophen (Tylenol) 650 mg Q6H PRN PO PAIN SCALE 1 TO 10; Start 06/10/17 at 22:00 Albumin Human 3,200 ml @ 250 mls/hr Q48H IV Last administered on 06/13/17 19 :44; Start 06/13/17 at 17:00; Stop 06/17/17 at 12:51; Status DC Alprazolam (Xanax) 0.25 mg DAILY PRN PO ANXIETY Last administered on 00:26; Start 06/10/17 at 22:00 Anticoagulant Citrate Dextose Brandy A (Acd Formula Inj) 1,000 ml Q48H OTHER Last administered on 06/13/17 19:45; Start 06/13/17 at 17:00; Stop 06/21/17 at 17 :01 Bisacodyl (Dulcolax Supp) 10 mg DAILY PRN RECTAL SEVERE CONSITIPATION; Start 06/10/17 at 14:30 Calcium Gluconate 1 gm/Sodium Chloride 60 ml @ 60 mls/hr Q48H IV ; Start at 17:00; Stop 06/13/17 at 17:00; Status DC Calcium Gluconate 3 gm/Sodium Chloride 180 ml @ 60 mls/hr Q48H IV Last administered on 06/13/17 19:44; Start 06/13/17 at 17:00; Stop 06/21/17 at 19 :59 Carboxymethylcellulose Sodium (Refresh Tears 0.5% Opth Soln) 1 drop Q6H PRN EACH EYE DRY EYE Last administered on 06/18/17 00:27; Start 06/17/17 at 14:30 Cyanocobalamin (Vitamin B12 Inj) 1,000 mcg ONCE ONCE IM Last administered on 06/11/17 15:49; Start 06/11/17 at 14:45; Stop 06/11/17 at 14:46; Status DC Diphenhydramine HCl (Benadryl Inj) 25 mg UNSCH PRN IV PUSH ALLERGIC REACTION; Start 06/13/17 at 16:00 Enalaprilat (Vasotec Inj) 1.25 mg Q6H PRN IV PUSH SBP> OR = 180, DBP> OR = 100 ; Start 06/10/17 at 22:00 Heparin Sodium (Porcine) (Heparin Inj) 5,000 units UNSCH PRN IV FLUSH FLUSH AFTER USING IV ACCESS; Start 06/13/17 at 16:00 Lactulose (Lactulose Liq) 30 ml DAILY PRN PO SEVERE CONSITIPATION; Start 06/10 at 14:30 Loperamide HCl (Imodium) 4 mg BID PRN PO DIARRHEA; Start 06/10/17 at 17:30 Magnesium Hydroxide (Milk Of Magnesia Liq) 30 ml Q12H PRN PO Mild constipation ; Start 06/10/17 at 14:30 Methylprednisolone Sodium Succinate (SoluMEDROL INJ) 25 mg Q6H IV PUSH Last administered on 06/14/17 05:15; Start 06/10/17 at 18:00; Stop 06/14/17 at 07 :50; Status DC Miscellaneous (Pill Splitter) 1 ea UNSCH PRN OTHER SEE LABEL COMMENTS; Start 06/10/17 at 18:45 Ondansetron HCl (Zofran Inj) 4 mg Q6H PRN IVP NAUSEA OR VOMITING Last administered on 06/15/17 00:19; Start 06/10/17 at 14:30 Pyridostigmine [place] (Mestinon) 120 mg TIDAC PO Last administered on 08:04; Start 06/15/17 at 17:00 Senna/Docusate Sodium (Ramona-Colace) 1 tab BID PO Last administered on 08:04; Start 06/10/17 at 21:00 Sennosides (Senokot) 17.2 mg Q12H PRN PO Moderate constipation; Start at 14:30 Sodium Chloride 250 ml @ 15 mls/hr ONCE ONCE IV ; Start 06/14/17 at 09:15; Stop 06/15/17 at 01:54; Status DC Sodium Chloride (NS Flush) 10 ml UNSCH PRN IV FLUSH FLUSH AFTER USING IV ACCESS ; Start 06/13/17 at 16:00 Urinary Catheter: No Vascular Central Line Catheter: No A/P Assessment and Plan 86-year-old male with past history of colon cancer (treated), hyperlipidemia, prostate cancer (treated), recurrent dysphagia, myasthenia gravis who presented for dysphagia and slurred speech. Currently without other neurological neurological deficits. Head CT without acute intracranial abnormality. Patient personally deferred MRI at admission. Currently receiving plasmapheresis every other day per hematology. Neurology following. Discharge Planning Anticipate discharge once pt is back at baseline, pending additional recommendations from neurology and hematology. Currently receiving plasma exchange, initiated 06/13. Problem List: (1) Myasthenia gravis ICD Codes: G70.00 - Myasthenia gravis Status: Chronic Plan: Dysarthria and dysphagia improved after second treatment VasCath placed 10/16 AM Plasmapheresis 06/13 and 06/15, session 06/17 held due to pancytopenia Hematology managing plasmapheresis orders. He will have plasmapheresis every other day. Held today due to pancytopenia Patient will need to have a goal fibrinogen > 100 per hematology given his history of small brain bleed after previous positive pheresis treatments. Cryoprecipitate administered 06/16 Hospital Course: Dysarthria and dysphasia similar to past episodes of myasthenia flare-ups. CT without acute process. Self-reported slurred speech, not overtly recognizable on exam, otherwise no focal neurological deficits. Pt reports that his speech is improving * Neuro checks every 4hr * Neurology consulted, appreciate recommendations * Mestinon dosing per Neurology * Out of bed as tolerated * Hematology, Dr. Sorathia, consulted, appreciate recommendations * Continue management of myasthenia as below * Monitor for signs concerning for stroke Permanent Comment: Dysphagia; elevated acetycholine recept bind AB elevated, striated muscle ab + Last Edited By: Chris Doherty on Aug 26, 2014 13:53 (2) Dysarthria ICD Codes: R47.1 - Dysarthria and anarthria Status: Acute Plan: As above (3) Pancytopenia ICD Codes: D61.818 - Other pancytopenia Status: Acute Plan: Possibly related to plasma exchange, autoimmune. No signs of infection. Neutrophils normal * Peripheral blood smear showing normal leukopenia and normocytic anemia. * Currently without signs of infection * Continue to monitor (4) FEN Plan: Fluids * PO hydration, will discontinue IVF 06/17 at patient's request Electrolytes * Monitor and replete as needed Nutrition * Heart healthy diet, soft Prophylaxis * SCDs, heparin Nida Cardona MD R2 Jun 18, 2017 09:14
--- NOTE | 2017-06-18 15:04 | PD.ONC.PN ---
Subjective Subjective Remarks Afebrile overnight "My swallowing is improved" Objective Data Date Time Temp Pulse Resp B/P (MAP) Pulse Ox O2 Delivery O2 Flow Rate FiO2 06/18/17 13:07 60 06/18/17 12:00 97.5 59 20 147/67 (93) 98 06/18/17 08:00 97.5 61 20 147/67 (93) 96 Manual Cuff/Auscultation 06/18/17 04:43 97.6 62 18 141/67 (91) 97 06/18/17 00:00 97.6 58 17 148/67 (94) 97 06/17/17 20:00 98.2 65 18 137/61 (86) 98 06/17/17 17:18 97.8 60 18 117/66 (83) 98 06/18/17 06/18/17 06/18/17 07:00 15:00 23:00 Output Total 475 ml Balance -475 ml Result Diagram: 06/18/17 0600 06/18/17 0600 Laboratory Results Laboratory Tests Test 06/18/17 06:00 White Blood Count 2.7 TH/MM3 Red Blood Count 3.37 MIL/MM3 Hemoglobin 10.4 GM/DL Hematocrit 31.3 % Mean Corpuscular Volume 92.9 FL Mean Corpuscular Hemoglobin 31.0 PG Mean Corpuscular Hemoglobin Concent 33.3 % Red Cell Distribution Width 14.2 % Platelet Count 83 TH/MM3 Mean Platelet Volume 8.5 FL Neutrophils (%) (Auto) 62.2 % Lymphocytes (%) (Auto) 16.4 % Monocytes (%) (Auto) 12.4 % Eosinophils (%) (Auto) 8.4 % Basophils (%) (Auto) 0.6 % Neutrophils # (Auto) 1.7 TH/MM3 Lymphocytes # (Auto) 0.4 TH/MM3 Monocytes # (Auto) 0.3 TH/MM3 Eosinophils # (Auto) 0.2 TH/MM3 Basophils # (Auto) 0.0 TH/MM3 CBC Comment AUTO DIFF Differential Comment AUTO DIFF CONFIRMED Platelet Estimate LOW Platelet Morphology Comment NORMAL Prothrombin Time 11.8 SEC Prothromb Time International Ratio 1.1 RATIO Activated Partial Thromboplast Time 46.7 SEC Fibrinogen 198 mg/dL Blood Urea Nitrogen 19 MG/DL Creatinine 0.80 MG/DL Random Glucose 102 MG/DL Calcium Level 8.7 MG/DL Magnesium Level 1.7 MG/DL Sodium Level 141 MEQ/L Potassium Level 3.8 MEQ/L Chloride Level 105 MEQ/L Carbon Dioxide Level 33.0 MEQ/L Anion Gap 3 MEQ/L Estimat Glomerular Filtration Rate 91 ML/MIN Administered Medications Medications (Trade) Dose Ordered Sig/Brock Route PRN Reason Start Time Stop Time Status Last Admin Dose Admin Sodium Chloride (NS Flush) 2 ml BID IV FLUSH 06/10/17 21:00 06/17/17 08:15 Ondansetron HCl (Zofran Inj) 4 mg Q6H PRN IVP NAUSEA OR VOMITING 06/10/17 14:30 06/15/17 00:19 Senna/Docusate Sodium (Ramona-Colace) 1 tab BID PO 06/10/17 21:00 06/18/17 08:04 Alprazolam (Xanax) 0.25 mg DAILY PRN PO ANXIETY 06/10/17 22:00 06/18/17 00:26 Calcium Gluconate 3 gm/Sodium Chloride 180 ml @ 60 mls/hr Q48H IV 06/13/17 17:00 06/21/17 19:59 06/13/17 19:44 Anticoagulant Citrate Dextose Brandy A (Acd Formula Inj) 1,000 ml Q48H OTHER 06/13/17 17:00 06/21/17 17:01 06/13/17 19:45 Pyridostigmine [place] (Mestinon) 120 mg TIDAC PO 06/15/17 17:00 06/18/17 11:37 Carboxymethylcellulose Sodium (Refresh Tears 0.5% Opth Soln) 1 drop Q6H PRN EACH EYE DRY EYE 06/17/17 14:30 06/18/17 00:27 Objective Remarks GENERAL: Elderly male sitting up in chair at bedside in no acute distress. SKIN: Warm and dry. Vas-cath, right neck. HEAD: Normocephalic. EYES: No injection or drainage. NECK: Supple, trachea midline. CARDIOVASCULAR: Regular rate and rhythm RESPIRATORY: Breath sounds equal bilaterally. No accessory muscle use. GASTROINTESTINAL: Abdomen soft, non-tender, nondistended. EXTREMITIES: No cyanosis. No edema NEUROLOGICAL: Moving all extremities. Normal speech. No obvious focal deficit. Assessment/Plan Assessment 86y/o male with myasthenia gravis, admitted for exacerbation history of colon cancer status post surgery followed by chemotherapy. Prostate cancer on intermittent Lupron therapy. He has stage IV prostate cancer. Mild anemia and leukopenia which is chronic and due to B12 deficiency. Plan The pt is s/p 2 sessions with plasma exchange and reports he is swallowing and talking much better. When looking at his coags today, his APTT is elevated; however the pt states this lab was drawn from his heparinized Vascath line. We will recheck his CBC and coags in am and likely do plasma exchange with FFP. He has a history of SAH while getting plasma exchange during his last hospitalization and therefore we will be cautious. Attending Statement The exam, history, and the medical decision-making described in the above note were completed with the assistance of the mid-level provider. I reviewed and agree with the findings presented. I attest that I had a [id number] encounter with the patient on the same day, and personally performed and documented my assessment and findings in the medical record. clinically better with speech improved and feels better. suspect prolongation of PTT due to heparin contamination from draw through vas cath. will repeat in am and proceed with pheresis if labs okay. Halle Deng Jun 18, 2017 15:04 Mike Avery MD Jun 18, 2017 16:33
[2017-06-19 04:00] VITALS: BP 120/58; PULSE 67; RESP 20; TEMP 98.1; O2SAT 97
[2017-06-19] MEDS: DOCUSATE SODIUM 50 MG/SENNA 8.6 MG TAB PO SCH ×2 (07:50→21:10)
[2017-06-19] MEDS: PYRIDOSTIGMINE BROMIDE 60 MG TAB PO SCH ×3 (07:50→18:43)
[2017-06-19 07:53] VITALS: BP 134/61; PULSE 61; RESP 20; TEMP 97.6; O2SAT 97
[2017-06-19] MEDS: SODIUM CHLORIDE 0.9% FLUSH 10 ML FLUSH IV FLUSH SCH ×2 (08:52→21:00)
[2017-06-19 09:52] VITALS: PULSE 60
--- NOTE | 2017-06-19 11:15 | HHI.FPPN ---
Subjective Remarks Patient feeling well this morning. No fevers or chills, no chest pain, no shortness of breath, no abdominal pain, no nausea or vomiting, no diarrhea or constipation. Eating without difficulty. Full meals. No new pain around hernia repair. Hopes to get his next plasmapheresis soon. Is still urinating fairly frequently. Objective Vitals Vital Signs Date Time Temp Pulse Resp B/P (MAP) Pulse Ox O2 Delivery O2 Flow Rate FiO2 06/19/17 09:52 60 06/19/17 07:53 97.6 61 20 134/61 (85) 97 06/19/17 04:00 98.1 67 20 120/58 (78) 97 06/18/17 20:00 97.3 67 20 129/60 (83) 98 06/18/17 19:00 66 06/18/17 16:00 98.3 61 18 151/63 (92) 98 06/18/17 13:07 60 06/18/17 12:00 97.5 59 20 147/67 (93) 98 I/O 06/18/17 06/18/17 06/18/17 06/19/17 06/19/17 06/19/17 07:00 15:00 23:00 07:00 15:00 23:00 Intake Total 240 ml Output Total 475 ml 600 ml Balance -475 ml 240 ml -600 ml Intake Oral 240 ml Output Urine Total 475 ml 600 ml # Voids 1 # Bowel Movements 0 Result Diagram: 06/18/17 0600 06/18/17 0600 Imaging Last Impressions Catheter Placement X-Ray 06/13/17 0000 Signed Impressions: Service Date/Time: Tuesday, June 13, 2017 09:18 - CONCLUSION: Vas-Cath placement via the right internal jugular vein. Ponce Simental MD Head CT 06/10/17 0000 Signed Impressions: Service Date/Time: Saturday, June 10, 2017 13:35 - CONCLUSION: 1. No acute intracranial abnormality. 2. Atrophy and chronic small vessel ischemic change. Agustin Guajardo Jr., MD Objective Remarks GENERAL: This is a well-nourished, well-developed patient, in no apparent distress. Sitting up in chair. Speech is improved SKIN: No rashes. Cool and dry. HEAD: Atraumatic. Normocephalic. EYES: Extraocular motions intact. No scleral icterus. No injection or drainage. ENT: Nose without bleeding, purulent drainage or septal hematoma. Uvula midline. Airway patent but increased secretions noted, pt intermittently uses OG tube suction for comfort. NECK: Trachea midline. CARDIOVASCULAR: Regular rate and rhythm without gallops, or rubs. Soft 1/6 systolic murmur. RESPIRATORY: Clear to auscultation, nonlabored. Breath sounds equal bilaterally. No wheezes, rales, or rhonchi. GASTROINTESTINAL: Abdomen soft, non-tender, nondistended. No hepato-splenomegaly , or palpable masses. No guarding. Recent surgical scar in right inguinal area from recent hernia repair, no erythema/swelling/tenderness/discharge, well healing. MUSCULOSKELETAL: Extremities without clubbing, cyanosis, or edema. No joint tenderness, effusion, or edema noted. No calf tenderness. NEUROLOGICAL: Awake and alert. Cranial nerves II through XII intact. Motor and sensory grossly within normal limits. Speech slow, muffled. He is slurring the speech now. A/P Assessment and Plan 86-year-old male with past history of colon cancer (treated), hyperlipidemia, prostate cancer (treated), recurrent dysphagia, myasthenia gravis who presented for dysphagia and slurred speech. Currently without other neurological neurological deficits. Head CT without acute intracranial abnormality. Patient personally deferred MRI at admission. Currently receiving plasmapheresis every other day per hematology. Neurology following. Discharge Planning Anticipate discharge once pt is back at baseline, pending additional recommendations from neurology and hematology. Currently receiving plasma exchange, initiated 06/13. Problem List: (1) Myasthenia gravis ICD Codes: G70.00 - Myasthenia gravis Status: Chronic Plan: Dysarthria and dysphagia improved after second treatment VasCath placed 1016 AM Plasmapheresis 06/13 and 06/15, session scheduled for 06/17 held due to pancytopenia on 06/18 as well. Hematology managing plasmapheresis orders. He will have plasmapheresis every other day. Held today due to pancytopenia Patient will need to have a goal fibrinogen > 100 per hematology given his history of small brain bleed after previous positive pheresis treatments. Cryoprecipitate administered 06/16 Hospital Course: Dysarthria and dysphasia similar to past episodes of myasthenia flare-ups. CT without acute process. Self-reported slurred speech, not overtly recognizable on exam, otherwise no focal neurological deficits. Pt reports that his speech is improving * Neuro checks every 4hr * Neurology consulted, appreciate recommendations * Mestinon dosing per Neurology * Out of bed as tolerated * Hematology, Dr. Garcia, consulted, appreciate recommendations * Continue management of myasthenia as below * Monitor for signs concerning for stroke Permanent Comment: Dysphagia; elevated acetycholine recept bind AB elevated, striated muscle ab + Last Edited By: Chris Doherty on Aug 26, 2014 13:53 (2) Dysarthria ICD Codes: R47.1 - Dysarthria and anarthria Status: Acute Plan: As above (3) Pancytopenia ICD Codes: D61.818 - Other pancytopenia Status: Acute Plan: Possibly related to plasma exchange, autoimmune. No signs of infection. Neutrophils normal. WBCs back up to 4.1 on 06/19 along with Hgb 11.2 and platelets 108. * Peripheral blood smear showing normal leukopenia and normocytic anemia. * Currently without signs of infection * Continue to monitor (4) FEN Status: Acute Plan: Fluids * PO hydration, will discontinue IVF 06/17 at patient's request Electrolytes * Monitor and replete as needed Nutrition * Heart healthy diet, soft Prophylaxis * SCDs, heparin Merlyn Jalloh MD R1 Jun 19, 2017 11:15
[2017-06-19 11:49] LABS: BASOPHIL % 0.3 % (0.0-2.0); EOSINOPHIL # 0.3 TH/MM3 (0-0.4); EOSINOPHIL % 6.4 % (0.0-4.0); HEMATOCRIT 34.3 % (39.0-51.0); HEMO FLAGS DIFF FINAL; LYMPH % 7.9 % (9.0-44.0); LYMPHOCYTE # 0.3 TH/MM3 (1.0-4.8); MEAN CELL VOLUME 93.7 FL (80.0-100.0); MEAN CORPUSCULAR HEMOGLOBIN 30.7 PG (27.0-34.0); MEAN CORPUSCULAR HGB CONC 32.7 % (32.0-36.0); MONO % 12.3 % (0.0-8.0); NEUT % 73.1 % (16.0-70.0); PLATELET COUNT 108 TH/MM3 (150-450); RED BLOOD COUNT 3.67 MIL/MM3 (4.50-5.90); RED CELL DISTRIBUTION WIDTH 14.7 % (11.6-17.2); WHITE BLOOD COUNT 4.1 TH/MM3 (4.0-11.0)
[2017-06-19 11:56] LABS: APTT (PATIENT) 26.1 SEC (24.3-30.1); PROTHROMBIN TIME - PATIENT 11.4 SEC (9.8-11.6)
[2017-06-19 12:00] VITALS: BP 143/64; PULSE 60; RESP 20; TEMP 97.4; O2SAT 92
[2017-06-19 12:14] LABS: BICARBONATE 33.7 MEQ/L (21.0-32.0); POTASSIUM 4.1 MEQ/L (3.5-5.1)
--- NOTE | 2017-06-19 16:05 | PD.ONC.PN ---
Subjective Subjective Remarks Afebrile Feeling stronger "I feel pretty good today" Objective Data Date Time Temp Pulse Resp B/P (MAP) Pulse Ox O2 Delivery O2 Flow Rate FiO2 06/19/17 12:00 97.4 60 20 143/64 (90) 92 06/19/17 09:52 60 06/19/17 07:53 97.6 61 20 134/61 (85) 97 06/19/17 04:00 98.1 67 20 120/58 (78) 97 06/18/17 20:00 97.3 67 20 129/60 (83) 98 06/18/17 19:00 66 06/19/17 06/19/17 06/19/17 07:00 15:00 23:00 Output Total 600 ml Balance -600 ml Result Diagram: 06/19/17 1104 06/19/17 1104 Laboratory Results Laboratory Tests Test 06/19/17 11:04 White Blood Count 4.1 TH/MM3 Red Blood Count 3.67 MIL/MM3 Hemoglobin 11.2 GM/DL Hematocrit 34.3 % Mean Corpuscular Volume 93.7 FL Mean Corpuscular Hemoglobin 30.7 PG Mean Corpuscular Hemoglobin Concent 32.7 % Red Cell Distribution Width 14.7 % Platelet Count 108 TH/MM3 Mean Platelet Volume 8.8 FL Neutrophils (%) (Auto) 73.1 % Lymphocytes (%) (Auto) 7.9 % Monocytes (%) (Auto) 12.3 % Eosinophils (%) (Auto) 6.4 % Basophils (%) (Auto) 0.3 % Neutrophils # (Auto) 3.0 TH/MM3 Lymphocytes # (Auto) 0.3 TH/MM3 Monocytes # (Auto) 0.5 TH/MM3 Eosinophils # (Auto) 0.3 TH/MM3 Basophils # (Auto) 0.0 TH/MM3 CBC Comment DIFF FINAL Differential Comment Prothrombin Time 11.4 SEC Prothromb Time International Ratio 1.0 RATIO Activated Partial Thromboplast Time 26.1 SEC Fibrinogen 250 mg/dL Blood Urea Nitrogen 22 MG/DL Creatinine 0.89 MG/DL Random Glucose 115 MG/DL Calcium Level 9.4 MG/DL Sodium Level 140 MEQ/L Potassium Level 4.1 MEQ/L Chloride Level 102 MEQ/L Carbon Dioxide Level 33.7 MEQ/L Anion Gap 4 MEQ/L Estimat Glomerular Filtration Rate 81 ML/MIN Administered Medications Medications (Trade) Dose Ordered Sig/Brock Route PRN Reason Start Time Stop Time Status Last Admin Dose Admin Sodium Chloride (NS Flush) 2 ml BID IV FLUSH 06/10/17 21:00 06/19/17 08:52 Ondansetron HCl (Zofran Inj) 4 mg Q6H PRN IVP NAUSEA OR VOMITING 06/10/17 14:30 06/15/17 00:19 Senna/Docusate Sodium (Ramona-Colace) 1 tab BID PO 06/10/17 21:00 06/19/17 07:50 Alprazolam (Xanax) 0.25 mg DAILY PRN PO ANXIETY 06/10/17 22:00 06/18/17 23:33 Calcium Gluconate 3 gm/Sodium Chloride 180 ml @ 60 mls/hr Q48H IV 06/13/17 17:00 06/21/17 19:59 06/13/17 19:44 Anticoagulant Citrate Dextose Brandy A (Acd Formula Inj) 1,000 ml Q48H OTHER 06/13/17 17:00 06/21/17 17:01 06/13/17 19:45 Pyridostigmine [place] (Mestinon) 120 mg TIDAC PO 06/15/17 17:00 06/19/17 11:53 Carboxymethylcellulose Sodium (Refresh Tears 0.5% Opth Soln) 1 drop Q6H PRN EACH EYE DRY EYE 06/17/17 14:30 06/18/17 00:27 Objective Remarks GENERAL: Elderly male currently getting plasma exchange SKIN: Warm and dry. Vas-cath, right neck. HEAD: Normocephalic. EYES: No injection or drainage. NECK: Supple, trachea midline. CARDIOVASCULAR: Regular rate and rhythm RESPIRATORY: Breath sounds equal bilaterally. No accessory muscle use. GASTROINTESTINAL: Abdomen soft, non-tender, nondistended. EXTREMITIES: No cyanosis. No edema NEUROLOGICAL: Moving all extremities. Normal speech. No obvious focal deficit. Assessment/Plan Assessment 86y/o male with myasthenia gravis, admitted for exacerbation history of colon cancer status post surgery followed by chemotherapy. Prostate cancer on intermittent Lupron therapy. He has stage IV prostate cancer. Mild anemia and leukopenia which is chronic and due to B12 deficiency. Plan The pt is seen and examined in dialysis treatment area. He is currently getting exchange with FFP. When looking at his counts, it is noted that the pancytopenia is improved. His APTT is back to normal which further points to the hypothesis that the sample drawn on 06/18 was drawn from a heparinized line. Today is his 3rd treatment. Will defer to neurology on how many treatments to continue with. CBC, Coags in am. Attending Statement The exam, history, and the medical decision-making described in the above note were completed with the assistance of the mid-level provider. I reviewed and agree with the findings presented. I attest that I had a [id number] encounter with the patient on the same day, and personally performed and documented my assessment and findings in the medical record . tolerated plasma exchange and continues to grain strength. pt and ptt are normal and previous elevation probably a result of drawing blood from the central catheter which contained heparin. He appears stable and if additional plasma exchanges are planned they may be able to do as an outpatient. Halle Deng Jun 19, 2017 16:05 Mike Avery MD Jun 19, 2017 17:55
[2017-06-19 19:42] VITALS: PULSE 70
[2017-06-19 20:00] VITALS: BP 127/59; PULSE 76; RESP 20; TEMP 97.4; O2SAT 100
[2017-06-19] MEDS: ALPRAZolam 0.25 MG TAB PO PRN (21:10)
[2017-06-20] VITALS: BP 121/65; PULSE 68; RESP 20; TEMP 98; O2SAT 96
[2017-06-20 04:00] VITALS: BP 112/56; PULSE 63; RESP 20; TEMP 98.2; O2SAT 94
[2017-06-20 08:02] VITALS: PULSE 57
[2017-06-20] MEDS: DOCUSATE SODIUM 50 MG/SENNA 8.6 MG TAB PO SCH (08:04)
[2017-06-20] MEDS: PYRIDOSTIGMINE BROMIDE 60 MG TAB PO SCH ×2 (08:04→11:44)
[2017-06-20] MEDS: CARBOXYMETHYLCELL SOD 0.5% OPTH SOLN 15 ML BTL EACH EYE PRN (08:05)
[2017-06-20] MEDS: SODIUM CHLORIDE 0.9% FLUSH 10 ML FLUSH IV FLUSH SCH (08:05)
[2017-06-20 08:11] VITALS: BP 96/56; PULSE 64; RESP 18; TEMP 97.6; O2SAT 95
--- NOTE | 2017-06-20 08:16 | HHI.PR ---
Subjective Remarks feeling well Objective Vital Signs Date Time Temp Pulse Resp B/P (MAP) Pulse Ox O2 Delivery O2 Flow Rate FiO2 06/20/17 08:11 97.6 64 18 96/56 (69) 95 06/20/17 04:00 98.2 63 20 112/56 (74) 94 06/20/17 00:00 98.0 68 20 121/65 (83) 96 06/19/17 20:00 97.4 76 20 127/59 (81) 100 06/19/17 19:42 70 06/19/17 12:00 97.4 60 20 143/64 (90) 92 06/19/17 09:52 60 I/O 06/19/17 06/19/17 06/19/17 06/20/17 06/20/17 06/20/17 07:00 15:00 23:00 07:00 15:00 23:00 Output Total 600 ml 150 ml Balance -600 ml -150 ml Output Urine Total 600 ml 150 ml Result Diagram: 06/19/17 1104 06/19/17 1104 Objective Remarks speech almost nl eye closure near nl awake alert 12/31 t/o gait nl Assessment and Plan Assessment and Plan imp he has polyuria on this dose of mestinon so change back to 120 tid he thinks steroids alsways makes him worse so dc it watch for bleeding on pex s/p one as had sah last time from hypocoagulable on it i held sq he for now oob with PT he will call me as soon as he gets worse and i can pex sooner from now on last pex 09/14 i will dw heme 06/16/17 looks better oob us neg 06/17/17 he looks better daily plt down 82 please monitor this it dropped last time in he may be able to dc tuesday and get a few pex outpt in [place]? up to heme for now keep in until tuesday at least i think we will do 7 or 8 pex or until voice totally nl 06/20/17 much better unclear if he has had 3 or 4 pex he says three had one yest and was supposed to get one on tuesday regardless he could dc home and i would recommend two more pex as o/p if that can be arranged and fu my office tuesday if those two are done if cannot do o/p keep here Mickey Loyola MD Jun 20, 2017 08:16
--- NOTE | 2017-06-20 09:00 | PD.ONC.PN ---
Subjective Subjective Remarks Afebrile overnight. Patient feeling much better today. Eager to go home. Swallowing and speech improved. Objective Data Date Time Temp Pulse Resp B/P (MAP) Pulse Ox O2 Delivery O2 Flow Rate FiO2 06/20/17 08:11 97.6 64 18 96/56 (69) 95 06/20/17 04:00 98.2 63 20 112/56 (74) 94 06/20/17 00:00 98.0 68 20 121/65 (83) 96 06/19/17 20:00 97.4 76 20 127/59 (81) 100 06/19/17 19:42 70 06/19/17 12:00 97.4 60 20 143/64 (90) 92 06/19/17 09:52 60 06/20/17 06/20/17 06/20/17 07:00 15:00 23:00 Output Total 150 ml Balance -150 ml Result Diagram: 06/19/17 1104 06/19/17 1104 Laboratory Results Laboratory Tests Test 06/19/17 11:04 06/20/17 07:50 White Blood Count 4.1 TH/MM3 Red Blood Count 3.67 MIL/MM3 Hemoglobin 11.2 GM/DL Hematocrit 34.3 % Mean Corpuscular Volume 93.7 FL Mean Corpuscular Hemoglobin 30.7 PG Mean Corpuscular Hemoglobin Concent 32.7 % Red Cell Distribution Width 14.7 % Platelet Count 108 TH/MM3 Mean Platelet Volume 8.8 FL Neutrophils (%) (Auto) 73.1 % Lymphocytes (%) (Auto) 7.9 % Monocytes (%) (Auto) 12.3 % Eosinophils (%) (Auto) 6.4 % Basophils (%) (Auto) 0.3 % Neutrophils # (Auto) 3.0 TH/MM3 Lymphocytes # (Auto) 0.3 TH/MM3 Monocytes # (Auto) 0.5 TH/MM3 Eosinophils # (Auto) 0.3 TH/MM3 Basophils # (Auto) 0.0 TH/MM3 CBC Comment DIFF FINAL Differential Comment Prothrombin Time 11.4 SEC Prothromb Time International Ratio 1.0 RATIO Activated Partial Thromboplast Time 26.1 SEC Fibrinogen 250 mg/dL Blood Urea Nitrogen 22 MG/DL Creatinine 0.89 MG/DL Random Glucose 115 MG/DL Calcium Level 9.4 MG/DL Sodium Level 140 MEQ/L Potassium Level 4.1 MEQ/L Chloride Level 102 MEQ/L Carbon Dioxide Level 33.7 MEQ/L Anion Gap 4 MEQ/L Estimat Glomerular Filtration Rate 81 ML/MIN Administered Medications Medications (Trade) Dose Ordered Sig/Brock Route PRN Reason Start Time Stop Time Status Last Admin Dose Admin Sodium Chloride (NS Flush) 2 ml BID IV FLUSH 06/10/17 21:00 06/20/17 08:05 Ondansetron HCl (Zofran Inj) 4 mg Q6H PRN IVP NAUSEA OR VOMITING 06/10/17 14:30 06/15/17 00:19 Senna/Docusate Sodium (Ramona-Colace) 1 tab BID PO 06/10/17 21:00 06/20/17 08:04 Alprazolam (Xanax) 0.25 mg DAILY PRN PO ANXIETY 06/10/17 22:00 06/19/17 21:10 Calcium Gluconate 3 gm/Sodium Chloride 180 ml @ 60 mls/hr Q48H IV 06/13/17 17:00 06/21/17 19:59 06/13/17 19:44 Anticoagulant Citrate Dextose Brandy A (Acd Formula Inj) 1,000 ml Q48H OTHER 06/13/17 17:00 06/21/17 17:01 06/13/17 19:45 Pyridostigmine [place] (Mestinon) 120 mg TIDAC PO 06/15/17 17:00 06/20/17 08:04 Carboxymethylcellulose Sodium (Refresh Tears 0.5% Opth Soln) 1 drop Q6H PRN EACH EYE DRY EYE 06/17/17 14:30 06/20/17 08:05 Objective Remarks GENERAL: Elderly male sitting up in bed in [facility]. SKIN: Warm and dry. vas-cath, right neck. HEAD: Normocephalic. EYES: No injection or drainage. NECK: Supple, trachea midline. CARDIOVASCULAR: Regular rate and rhythm RESPIRATORY: Breath sounds equal bilaterally. No accessory muscle use. GASTROINTESTINAL: Abdomen soft, non-tender, nondistended. EXTREMITIES: No cyanosis NEUROLOGICAL: awake and alert, normal speech. moving all extremities. Assessment/Plan Problem List: (1) Myasthenia gravis ICD Codes: G70.00 - Myasthenia gravis Status: Chronic Plan: 06/20: ok to d/c if labs remain stable. follow up in clinic tomorrow for PEX #4. 06/19: received PEX #3 06/17: pancytopenia likely d/t dilution. However, will hold Plasma exchange today and monitor counts closely. If counts are improving tomorrow, plasma exchange could be resumed. 06/16: off day. monitor coags, fibrinogen, platelets. 06/15: PEX #2 will replace plasma with FFP d/t patient's history of SAH. PEX order corrected in paper chart and order sent to dialysis/plasma exchange nurse. 06/14: off day. fibrinogen 98. coags prolonged. will give 1 unit cryo and recheck coags this afternoon. 06/13: vas-cath placed this AM. starting plasma exchange today. --currently on Mestinon and solu-medrol Assessment 86y/o male with myasthenia gravis, admitted for exacerbation history of colon cancer status post surgery followed by chemotherapy. Prostate cancer on intermittent Lupron therapy. He has stage IV prostate cancer. Mild anemia and leukopenia which is chronic and due to B12 deficiency. Attending Statement The exam, history, and the medical decision-making described in the above note were completed with the assistance of the mid-level provider. I reviewed and agree with the findings presented. I attest that I had a [id number] encounter with the patient on the same day, and personally performed and documented my assessment and findings in the medical record. speech and swallowing back to normal. wants to go home. will continue PEX as outpt clear to d/c Elly Grimaldo Jun 20, 2017 09:00 Gabriel Garcia MD Jun 20, 2017 17:00
[2017-06-20 09:03] LABS: AUTOMATED NEUTROPHIL # 1.8 TH/MM3 (1.8-7.7); BASOPHIL % 0.5 % (0.0-2.0); EOSINOPHIL # 0.2 TH/MM3 (0-0.4); EOSINOPHIL % 7.5 % (0.0-4.0); HEMATOCRIT 34.4 % (39.0-51.0); HEMO FLAGS DIFF FINAL; LYMPH % 17.2 % (9.0-44.0); LYMPHOCYTE # 0.5 TH/MM3 (1.0-4.8); MEAN CELL VOLUME 93.2 FL (80.0-100.0); MEAN CORPUSCULAR HEMOGLOBIN 30.8 PG (27.0-34.0); MONO % 16.3 % (0.0-8.0); NEUT % 58.5 % (16.0-70.0); PLATELET COUNT 108 TH/MM3 (150-450); RED BLOOD COUNT 3.69 MIL/MM3 (4.50-5.90); RED CELL DISTRIBUTION WIDTH 14.7 % (11.6-17.2)
[2017-06-20 09:07] LABS: PROTHROMBIN TIME - PATIENT 10.9 SEC (9.8-11.6)
[2017-06-20 09:30] LABS: BICARBONATE 34.4 MEQ/L (21.0-32.0); MAGNESIUM 1.9 MG/DL (1.5-2.5)
[2017-06-20 09:40] LABS: POTASSIUM 3.8 MEQ/L (3.5-5.1)
--- NOTE | 2017-06-20 09:51 | RSPPFT ---
DATE OF PROCEDURE: 06/16/17 COMMENTS: Spirometry with FVC of 1.8, FEV1 of 1.2, FEV1/FVC ratio at 64%. A non-significant response to acutely inhaled bronchodilator noted. IMPRESSION:
--- NOTE | 2017-06-20 11:14 | HHI.DCPOC ---
Discharge Care Plan Diagnosis: (1) Myasthenia gravis with acute exacerbation (2) Dysarthria (3) Pancytopenia Goals to Promote Your Health * To prevent worsening of your condition and complications * To maintain your health at the optimal level Directions to Meet Your Goals Take your medications as prescribed Follow your dietary instruction Follow activity as directed Keep your appointments as scheduled Take your immunizations and boosters as scheduled If your symptoms worsen call your PCP, if no PCP go to Urgent Care Center or Emergency Room Smoking is Dangerous to Your Health. Avoid second hand smoke Call the 24-hour hour crisis hotline for domestic abuse at Nida Cardona MD R2 Jun 20, 2017 11:14
--- NOTE | 2017-06-20 11:25 | HHI.FPPN ---
Subjective Remarks Patient was seen and examined this morning he feels great and is ready to go home. He denies any swallowing difficulties but is being careful eating soft foods. He denies chest pain or shortness of breath. He is ambulating without difficulty. He says his speech and swallowing feel like they're back at baseline. Objective Vitals Vital Signs Date Time Temp Pulse Resp B/P (MAP) Pulse Ox O2 Delivery O2 Flow Rate FiO2 06/20/17 08:11 97.6 64 18 96/56 (69) 95 06/20/17 08:02 57 06/20/17 04:00 98.2 63 20 112/56 (74) 94 06/20/17 00:00 98.0 68 20 121/65 (83) 96 06/19/17 20:00 97.4 76 20 127/59 (81) 100 06/19/17 19:42 70 06/19/17 12:00 97.4 60 20 143/64 (90) 92 I/O 06/19/17 06/19/17 06/19/17 06/20/17 06/20/17 06/20/17 07:00 15:00 23:00 07:00 15:00 23:00 Output Total 600 ml 150 ml Balance -600 ml -150 ml Output Urine Total 600 ml 150 ml Result Diagram: 06/20/17 0750 06/20/17 0750 Imaging Last Impressions Catheter Placement X-Ray 06/13/17 0000 Signed Impressions: Service Date/Time: Tuesday, June 13, 2017 09:18 - CONCLUSION: Vas-Cath placement via the right internal jugular vein. Ponce Simental MD Head CT 06/10/17 0000 Signed Impressions: Service Date/Time: Saturday, June 10, 2017 13:35 - CONCLUSION: 1. No acute intracranial abnormality. 2. Atrophy and chronic small vessel ischemic change. Agustin Guajardo Jr., MD Objective Remarks GENERAL: This is a well-nourished, well-developed patient, in no apparent distress. Sitting up in chair. Speech appears normal today. SKIN: No rashes or ecchymoses. Cool and dry. HEAD: Atraumatic. Normocephalic. EYES: Extraocular motions intact. No scleral icterus. No injection or drainage. ENT: Nose without bleeding, purulent drainage or septal hematoma. Uvula midline. Airway patent with no increased secretions. NECK: Trachea midline. CARDIOVASCULAR: Regular rate and rhythm without gallops, or rubs. Soft 1/6 systolic murmur. RESPIRATORY: Clear to auscultation, nonlabored. Breath sounds equal bilaterally. No wheezes, rales, or rhonchi. GASTROINTESTINAL: Abdomen soft, non-tender, nondistended. No hepato-splenomegaly , or palpable masses. No guarding. Recent surgical scar in right inguinal area from recent hernia repair, no erythema/swelling/tenderness/discharge, well healing. MUSCULOSKELETAL: Extremities without clubbing, cyanosis, or edema. No joint tenderness, effusion, or edema noted. No calf tenderness. NEUROLOGICAL: Awake and alert. Cranial nerves II through XII intact. Motor and sensory grossly within normal limits. Procedures Plasmapheresis 3. Medications and IVs Inpatient Medications Acetaminophen (Tylenol) 650 mg Q6H PRN PO PAIN SCALE 1 TO 10; Start 06/10/17 at 22:00 Albumin Human 3,200 ml @ 250 mls/hr Q48H IV Last administered on 06/13/17 19 :44; Start 06/13/17 at 17:00; Stop 06/17/17 at 12:51; Status DC Alprazolam (Xanax) 0.25 mg DAILY PRN PO ANXIETY Last administered on 21:10; Start 06/10/17 at 22:00 Anticoagulant Citrate Dextose Brandy A (Acd Formula Inj) 1,000 ml Q48H OTHER Last administered on 06/13/17 19:45; Start 06/13/17 at 17:00; Stop 06/21/17 at 17 :01 Bisacodyl (Dulcolax Supp) 10 mg DAILY PRN RECTAL SEVERE CONSITIPATION; Start 06/10/17 at 14:30 Calcium Gluconate 1 gm/Sodium Chloride 60 ml @ 60 mls/hr Q48H IV ; Start at 17:00; Stop 06/13/17 at 17:00; Status DC Calcium Gluconate 3 gm/Sodium Chloride 180 ml @ 60 mls/hr Q48H IV Last administered on 06/13/17 19:44; Start 06/13/17 at 17:00; Stop 06/21/17 at 19 :59 Carboxymethylcellulose Sodium (Refresh Tears 0.5% Opth Soln) 1 drop Q6H PRN EACH EYE DRY EYE Last administered on 06/20/17 08:05; Start 06/17/17 at 14:30 Cyanocobalamin (Vitamin B12 Inj) 1,000 mcg ONCE ONCE IM Last administered on 06/11/17 15:49; Start 06/11/17 at 14:45; Stop 06/11/17 at 14:46; Status DC Diphenhydramine HCl (Benadryl Inj) 25 mg UNSCH PRN IV PUSH ALLERGIC REACTION; Start 06/13/17 at 16:00 Enalaprilat (Vasotec Inj) 1.25 mg Q6H PRN IV PUSH SBP> OR = 180, DBP> OR = 100 ; Start 06/10/17 at 22:00 Heparin Sodium (Porcine) (Heparin Inj) 5,000 units UNSCH PRN IV FLUSH FLUSH AFTER USING IV ACCESS; Start 06/13/17 at 16:00 Lactulose (Lactulose Liq) 30 ml DAILY PRN PO SEVERE CONSITIPATION; Start 06/10 at 14:30 Loperamide HCl (Imodium) 4 mg BID PRN PO DIARRHEA; Start 06/10/17 at 17:30 Magnesium Hydroxide (Milk Of Magnesia Liq) 30 ml Q12H PRN PO Mild constipation ; Start 06/10/17 at 14:30 Methylprednisolone Sodium Succinate (SoluMEDROL INJ) 25 mg Q6H IV PUSH Last administered on 06/14/17 05:15; Start 06/10/17 at 18:00; Stop 06/14/17 at 07 :50; Status DC Miscellaneous (Pill Splitter) 1 ea UNSCH PRN OTHER SEE LABEL COMMENTS; Start 06/10/17 at 18:45 Ondansetron HCl (Zofran Inj) 4 mg Q6H PRN IVP NAUSEA OR VOMITING Last administered on 06/15/17 00:19; Start 06/10/17 at 14:30 Pyridostigmine [place] (Mestinon) 120 mg TIDAC PO Last administered on 08:04; Start 06/15/17 at 17:00 Senna/Docusate Sodium (Ramona-Colace) 1 tab BID PO Last administered on 08:04; Start 06/10/17 at 21:00 Sennosides (Senokot) 17.2 mg Q12H PRN PO Moderate constipation; Start at 14:30 Sodium Chloride 250 ml @ 15 mls/hr ONCE ONCE IV ; Start 06/14/17 at 09:15; Stop 06/15/17 at 01:54; Status DC Sodium Chloride (NS Flush) 10 ml UNSCH PRN IV FLUSH FLUSH AFTER USING IV ACCESS ; Start 06/13/17 at 16:00 Urinary Catheter: No Vascular Central Line Catheter: No A/P Assessment and Plan 86-year-old male with past history of colon cancer (treated), hyperlipidemia, prostate cancer (treated), recurrent dysphagia, myasthenia gravis who presented for dysphagia and slurred speech. Currently without other neurological neurological deficits. Head CT without acute intracranial abnormality. Patient personally deferred MRI at admission. Received 3 doses of plasmapheresis while inpatient. He will continue plasmapheresis as an outpatient starting 06/21 per Hematology notes. He is stable for discharge today. He sees Dr. Loyola (neurology) no follow-up with him once plasmapheresis treatments are completed. Discharge Planning Anticipate discharge once pt is back at baseline, pending additional recommendations from neurology and hematology. Currently receiving plasma exchange, initiated 06/13. Problem List: (1) Myasthenia gravis ICD Codes: G70.00 - Myasthenia gravis Status: Chronic Plan: Dysarthria and dysphagia improved after second treatment, continue to improve after therapy treatment. VasCath placed 1016 AM, patient will keep this for continued treatment as outpatient. Hospital Course: * Dysarthria and dysphasia similar to past episodes of myasthenia flare-ups. CT without acute process. Self-reported slurred speech, not overtly recognizable on exam, otherwise no focal neurological deficits. Pt reports that his speech is improving * Plasmapheresis 06/13 and 06/15, 06/19. Session scheduled for 06/17 held due to pancytopenia. Which improved. * Hematology managing plasmapheresis orders. He will have plasmapheresis every other day. Held today due to pancytopenia * Patient will need to have a goal fibrinogen > 100 per hematology given his history of small brain bleed after previous positive pheresis treatments. Cryoprecipitate administered 06/16 and fibrinogen levels have been stable since. * Neurology consulted, appreciate recommendations * Mestinon dosing same as home dosing at this point * Hematology consulted, appreciate recommendations, managing plasmapheresis treatments * Speech therapy following, soft foods, soft meats, thin liquid and did not recommend any continued speech therapy as outpatient. (2) Dysarthria ICD Codes: R47.1 - Dysarthria and anarthria Status: Acute Plan: As above (3) Pancytopenia ICD Codes: D61.818 - Other pancytopenia Status: Acute Plan: Possibly related to plasma exchange, autoimmune. No signs of infection. Neutrophils normal. WBCs back up to 4.1 on 06/19, 3.0 on 06/20. Hemoglobin and platelets stable.. * Peripheral blood smear showing normal leukopenia and normocytic anemia. * Currently without signs of infection * Continue to monitor (4) FEN Status: Acute Plan: Fluids * PO hydration, Electrolytes * Monitor and replete as needed Nutrition * Heart healthy diet, soft Prophylaxis * SCDs Nida Cardona MD R2 Jun 20, 2017 11:25
[2017-06-20 11:42] VITALS: BP 105/53; PULSE 66; RESP 18; TEMP 97.8; O2SAT 97
--- NOTE | 2017-06-20 14:36 | HHI.DS ---
Discharge Summary Admission Date Jun 10, 2017 at 13:22 Discharge Date: Jun 20, 2017 Admitting Diagnosis myasthenia crisis (1) Myasthenia gravis Plan: Dysarthria and dysphagia improved after second treatment, continue to improve after therapy treatment. VasCath placed 1016 AM, patient will keep this for continued treatment as outpatient. Hospital Course: * Dysarthria and dysphasia similar to past episodes of myasthenia flare-ups. CT without acute process. Self-reported slurred speech, not overtly recognizable on exam, otherwise no focal neurological deficits. Pt reports that his speech is improving * Plasmapheresis 06/13 and 06/15, 06/19. Session scheduled for 06/17 held due to pancytopenia. Which improved. * Hematology managing plasmapheresis orders. He will have plasmapheresis every other day. Held today due to pancytopenia * Patient will need to have a goal fibrinogen > 100 per hematology given his history of small brain bleed after previous positive pheresis treatments. Cryoprecipitate administered 06/16 and fibrinogen levels have been stable since. * Neurology consulted, appreciate recommendations * Mestinon dosing same as home dosing at this point * Hematology consulted, appreciate recommendations, managing plasmapheresis treatments * Speech therapy following, soft foods, soft meats, thin liquid and did not recommend any continued speech therapy as outpatient. ICD Codes: G70.00 - Myasthenia gravis Status: Chronic (2) Dysarthria Plan: As above ICD Codes: R47.1 - Dysarthria and anarthria Status: Acute (3) Pancytopenia Plan: Possibly related to plasma exchange, autoimmune. No signs of infection. Neutrophils normal. WBCs back up to 4.1 on 06/19, 3.0 on 06/20. Hemoglobin and platelets stable.. * Peripheral blood smear showing normal leukopenia and normocytic anemia. * Currently without signs of infection * Continue to monitor ICD Codes: D61.818 - Other pancytopenia Status: Acute (4) FEN Plan: Fluids * PO hydration, Electrolytes * Monitor and replete as needed Nutrition * Heart healthy diet, soft Prophylaxis * SCDs Status: Acute Procedures Plasmapheresis 3. Brief History 86-year-old male with past history of colon cancer (treated), hyperlipidemia, prostate cancer (treated), recurrent dysphagia, myasthenia gravis who presented for dysphagia and slurred speech. Patient states he's had difficulty swallowing foods and liquids for the past couple days. This is how his myasthenia usually presents itself. He has experienced this several times in the past and it usually resolves. However, he reports his mentioned he may have slurred speech, he calls neurologist (Dr. Loyola) who told him to come into the hospital. He denies headache, blurred vision, double vision, eye pain, weakness , numbness, tingling, trouble walking. Denies any recent sickness. No nausea, vomiting, fever, chills, cough, shortness of breath, abdominal pain, chest pain , change in bowel or bladder habits. CBC/BMP: 06/20/17 0750 06/20/17 0750 Significant Findings Laboratory Tests Test 06/18/17 06:00 06/19/17 11:04 06/20/17 07:50 White Blood Count 2.7 TH/MM3 (4.0-11.0) 3.0 TH/MM3 (4.0-11.0) Red Blood Count 3.37 MIL/MM3 (4.50-5.90) 3.67 MIL/MM3 (4.50-5.90) 3.69 MIL/MM3 (4.50-5.90) Hemoglobin 10.4 GM/DL (13.0-17.0) 11.2 GM/DL (13.0-17.0) 11.4 GM/DL (13.0-17.0) Hematocrit 31.3 % (39.0-51.0) 34.3 % (39.0-51.0) 34.4 % (39.0-51.0) Platelet Count 83 TH/MM3 (150-450) 108 TH/MM3 (150-450) 108 TH/MM3 (150-450) Monocytes (%) (Auto) 12.4 % (0.0-8.0) 12.3 % (0.0-8.0) 16.3 % (0.0-8.0) Eosinophils (%) (Auto) 8.4 % (0.0-4.0) 6.4 % (0.0-4.0) 7.5 % (0.0-4.0) Neutrophils # (Auto) 1.7 TH/MM3 (1.8-7.7) Lymphocytes # (Auto) 0.4 TH/MM3 (1.0-4.8) 0.3 TH/MM3 (1.0-4.8) 0.5 TH/MM3 (1.0-4.8) Platelet Estimate LOW (NORMAL) Prothrombin Time 11.8 SEC (9.8-11.6) Activated Partial Thromboplast Time 46.7 SEC (24.3-30.1) Fibrinogen 198 mg/dL (227-377) Blood Urea Nitrogen 19 MG/DL (7-18) 22 MG/DL (7-18) 28 MG/DL (7-18) Carbon Dioxide Level 33.0 MEQ/L (21.0-32.0) 33.7 MEQ/L (21.0-32.0) 34.4 MEQ/L (21.0-32.0) Anion Gap 3 MEQ/L (5-15) 4 MEQ/L (5-15) Neutrophils (%) (Auto) 73.1 % (16.0-70.0) Lymphocytes (%) (Auto) 7.9 % (9.0-44.0) Random Glucose 115 MG/DL (74-106) Estimat Glomerular Filtration Rate 81 ML/MIN (>89) 75 ML/MIN (>89) Imaging Last Impressions Catheter Placement X-Ray 06/13/17 0000 Signed Impressions: Service Date/Time: Tuesday, June 13, 2017 09:18 - CONCLUSION: Vas-Cath placement via the right internal jugular vein. Ponce Simental MD Head CT 06/10/17 0000 Signed Impressions: Service Date/Time: Saturday, June 10, 2017 13:35 - CONCLUSION: 1. No acute intracranial abnormality. 2. Atrophy and chronic small vessel ischemic change. Agustin Guajardo Jr., MD PE at Discharge GENERAL: This is a well-nourished, well-developed patient, in no apparent distress. Sitting up in chair. Speech appears normal today. SKIN: No rashes or ecchymoses. Cool and dry. HEAD: Atraumatic. Normocephalic. EYES: Extraocular motions intact. No scleral icterus. No injection or drainage. ENT: Nose without bleeding, purulent drainage or septal hematoma. Uvula midline. Airway patent with no increased secretions. NECK: Trachea midline. CARDIOVASCULAR: Regular rate and rhythm without gallops, or rubs. Soft 1/6 systolic murmur. RESPIRATORY: Clear to auscultation, nonlabored. Breath sounds equal bilaterally. No wheezes, rales, or rhonchi. GASTROINTESTINAL: Abdomen soft, non-tender, nondistended. No hepato-splenomegaly , or palpable masses. No guarding. Recent surgical scar in right inguinal area from recent hernia repair, no erythema/swelling/tenderness/discharge, well healing. MUSCULOSKELETAL: Extremities without clubbing, cyanosis, or edema. No joint tenderness, effusion, or edema noted. No calf tenderness. NEUROLOGICAL: Awake and alert. Cranial nerves II through XII intact. Motor and sensory grossly within normal limits. Hospital Course 86-year-old male with past history of colon cancer (treated), hyperlipidemia, prostate cancer (treated), recurrent dysphagia, myasthenia gravis who presented for dysphagia and slurred speech. He was without other neurological neurological deficits. Head CT was without acute intracranial abnormality. Patient personally deferred MRI at admission. Neurology and Hematology/Oncology for consulted. Patient was started on Mestinon on 06/10 90mg 5 times a day, then changed to 120mg q6h on 06/14, then 120mg TID AC on 06/15 up until his discharge on 06/20. He had a vas cath placed on 06/13. He did plasmapheresis on 06/13, 06/15, and 06/19. He had a previous hx of SAH in August after plasmapheresis so his fibrinogen and coag profile was monitored throughout his stay. He underwent a bout of pancytopenia as a result of the plasma exchange -06/18. He took a break from plasmapheresis during this time period. He ultimately went back to his baseline and was discharged on 06/20 in good condition. Pt Condition on Discharge: Good Discharge Disposition: Discharge Home Discharge Instructions DIET: Follow Instructions for: Soft Diet Speech Therapy-Diet Recommends: Mechanical Soft Additional Diet Instructions: chopped meat and thin liquids Activities you can perform: Regular-No Restrictions Merlyn Jalloh MD R1 Jun 20, 2017 14:36
== END 2017-06-20 14:23 | disposition home or self-care (01) | DRG 57 ==
LOC: NEPE 11:40 → NEDA 13:22 → N05A 15:49
PROVIDERS: ADMIT Family Medicine; ATTEND Family Medicine
PROC: 6A551Z3 Pheresis of Plasma, Multiple (ICD-10-PCS; principal; 2017-06-13)
PROC: 05HM33Z Insertion of Infusion Device into Right Internal Jugular Vein, Percutaneous Approach (ICD-10-PCS; 2017-06-13)
DX: G70.01 Myasthenia gravis with (acute) exacerbation (principal); C79.51 Secondary malignant neoplasm of bone; D61.818 Other pancytopenia; D51.9 Vitamin B12 deficiency anemia, unspecified; C61 Malignant neoplasm of prostate; D72.819 Decreased white blood cell count, unspecified; E78.5 Hyperlipidemia, unspecified; Z85.038 Personal history of other malignant neoplasm of large intestine; Z85.05 Personal history of malignant neoplasm of liver; Z85.828 Personal history of other malignant neoplasm of skin; Z92.21 Personal history of antineoplastic chemotherapy; Z88.2 Allergy status to sulfonamides; Z88.8 Allergy status to other drugs, medicaments and biological substances
CPT/HCPCS: 36430; 36514; 36556; 70450; 76937; 77001; 80048; 80053; 81001; 83735; 85025; 85027; 85060; 85384; 85610; 85730; 86927; 86965; 94060; 94150; C1752; J0610; J1644; J2405; J2920; J3420; J7030; P9017; P9045

== ENCOUNTER → 2017-07-27 | Outpatient (CLI) | payer MEDICARE ==
[~2017-07-27] MED LIST changes: -DOCU100C PO; +DOCU100C15 PO; +MYCO500 PO; -NORC5TAB PO; -OCUVTAB4 PO; -TYLE325T PO; +VITA10002 PO
[2017-07-27 14:36] LABS: AUTOMATED NEUTROPHIL # 2.7 TH/MM3 (1.8-7.7); BASOPHIL % 0.9 % (0.0-2.0); EOSINOPHIL # 0.1 TH/MM3 (0-0.4); EOSINOPHIL % 2.4 % (0.0-4.0); HEMATOCRIT 33.7 % (39.0-51.0); HEMO FLAGS DIFF FINAL; LYMPH % 11.1 % (9.0-44.0); LYMPHOCYTE # 0.4 TH/MM3 (1.0-4.8); MEAN CELL VOLUME 93.7 FL (80.0-100.0); MEAN CORPUSCULAR HEMOGLOBIN 30.4 PG (27.0-34.0); MEAN CORPUSCULAR HGB CONC 32.4 % (32.0-36.0); MONO % 10.4 % (0.0-8.0); NEUT % 75.2 % (16.0-70.0); PLATELET COUNT 162 TH/MM3 (150-450); RED BLOOD COUNT 3.59 MIL/MM3 (4.50-5.90); RED CELL DISTRIBUTION WIDTH 14.9 % (11.6-17.2); WHITE BLOOD COUNT 3.6 TH/MM3 (4.0-11.0)
[2017-07-27 15:08] LABS: BICARBONATE 29.9 MEQ/L (21.0-32.0)
[2017-07-27 18:27] LABS: POTASSIUM 4.2 MEQ/L (3.5-5.1)
[2017-07-27 18:29] LABS: INDIRECT BILIRUBIN 0.5 MG/DL (0.0-0.8); TOTAL BILIRUBIN ADULT 0.7 MG/DL (0.2-1.0)
== END ==
LOC: CLAB 14:08
PROVIDERS: ATTEND Specialist
DX: G70.01 Myasthenia gravis with (acute) exacerbation (principal); G93.3 Postviral and related fatigue syndromes; R94.5 Abnormal results of liver function studies; E88.9 Metabolic disorder, unspecified
CPT/HCPCS: 36415; 80048; 80076; 85025

== ENCOUNTER → 2017-07-29 | Outpatient (CLI) | payer MEDICARE ==
[~2017-07-29] MED LIST changes: +PERI PO
[2017-07-29 12:28] LABS: BLOOD GAS CARBOXYHEMOGLOBIN 1.2 % (0-4); BLOOD GAS HCO3 28 mmol/L (22-26); BLOOD GAS METHEMOGLOBIN 1.1 % (0-2); BLOOD GAS O2 HGB SATURATION 94 % (90-100); BLOOD GAS OXYGEN CONTENT 14.7 Vol % (12.0-20.0); BLOOD GAS PCO2 46 mmHg (38-42); BLOOD GAS PO2 86 mmHg (61-120); BLOOD GAS TOTAL HGB 11.1 G/DL (12.0-16.0); CRITICAL VALUE NO; DRAW SITE RT RADIAL; FIO2 21 %; NUMBER OF ARTERIAL PUNCTURES 1; STAT NO; TEMP CORR TO 98.6; ULNAR PULSE PRESENT
== END ==
LOC: HCAV 12:07
PROVIDERS: ATTEND Specialist
DX: R06.02 Shortness of breath (principal)
CPT/HCPCS: 36600; 82805

== ENCOUNTER 2017-08-02 00:34 | Inpatient (IN) | payer MEDICARE ==
[~2017-08-02] VITALS: Ht 182.9 cm; Wt 72.0 kg
[2017-08-02] VITALS (9 sets, daily range): BP systolic 119–183; BP diastolic 59–75; PULSE 60–77; RESP 16–22; TEMP 96.5–98.1; O2SAT 97–100
[~2017-08-02 00:34] MED LIST changes: -MYCO500 PO; -PERI PO
[2017-08-02] MEDS ORDERED: SODIUM CHLOR 0.9% 1000 ML INJ 1,000 ML IV SCH (00:50)
--- NOTE | 2017-08-02 00:55 | PD ---
HPI Chief Complaint: Abdominal Pain Time Seen by Provider: 00:44 Travel History International Travel<30 days: No Contact w/Intl Traveler<30days: No Traveled to known affect area: No History of Present Illness HPI 86-year-old male with history of myasthenia gravis, recent inguinal hernia repair a couple months ago, here for evaluation of abdominal pain, nausea, vomiting, and diarrhea. The patient reports he was feeling well until this afternoon when he went out to lunch with his . States that he ate crab cake and some ice cream, and afterwards began to have an upset stomach. He had 3 loose bowel movements since then and one episode of vomiting. Pain is described as sharp, diffuse, constant, moderate, worse with movements. Emesis and bowel movements are nonbloody. No fever. No urinary symptoms. PFSH Past Medical History Anemia: Yes Arthritis: Yes Asthma: No Autoimmune Disease: Yes (MYASTHENIA GRAVIS) Blood Disorders: No Anxiety: No Depression: No Cancer: Yes (liver cancer, colon cancer, prostate cancer, cancer of spinal column) Cardiovascular Problems: No High Cholesterol: Yes Chemotherapy: Yes (6 months with liver cancer) Chest Pain: No Congestive Heart Failure: No COPD: No Diabetes: No Diminished Hearing: Yes (BILATERAL HEARING AIDS) Endocrine: No Gastrointestinal Disorders: Yes (COLON/LIVER CA) GERD: No Genitourinary: Yes (urinary frequency related to mestinon) Hiatal Hernia: Yes Hypertension: No Immune Disorder: No Implanted Vascular Access Dvce: No Kidney Stones: No Musculoskeletal: Yes (Myasthenia Gravis) Neurologic: No Psychiatric: No Reproductive: No Respiratory: No Immunizations Current: Yes 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) Renal Failure: No Sleep Apnea: No Thyroid Disease: No Ulcer: No Past Surgical History Abdominal Surgery: Yes (colon resection, colon cx 1987 & 2007/removed half of liver/hernia repair) Eye Surgery: Yes (retina sx -left eye) Pacemaker: No Thoracic Surgery: Yes (LIVER RESECTION 2000) Tonsillectomy: Yes Other Surgery: Yes (HERNIA REPAIR JUN 2001) Social History Alcohol Use: No Tobacco Use: No Substance Use: No Allergies-Medications (Allergen,Severity, Reaction): Coded Allergies: Sulfa (Sulfonamide Antibiotics) (Unverified Allergy, Severe, Flushing, 08/02/17) lorazepam (Unverified Allergy, Intermediate, Psychosis, 08/02/17) prochlorperazine (Unverified Allergy, Unknown, JITTERY, 08/02/17) Reported Meds & Prescriptions Reported Meds & Active Scripts Active Docusate Sodium 100 Mg Cap 100 Mg PO BID Xanax (Alprazolam) 0.25 Mg Tab 0.25 Mg PO DAILY PRN Reported Vitamin B-12 (Cyanocobalamin) 1,000 Mcg Tab 1,000 Mcg PO DAILY Mestinon (Pyridostigmine [place]) 60 Mg Tab 120 Mg PO TID Ensure Plus (Nutritional Supplements) 1 Liq Liq 1 Can PO DAILY Cyanocobalamin Inj (Cyanocobalamin) 1,000 Mcg/Ml Inj 1,000 Mcg IM MONTHLY Vitamin D3 (Cholecalciferol) 2,000 Unit Cap 2,000 Units PO DAILY Tums (Calcium Carbonate (Antacid)) 500 Mg Chew 1,000 Mg CHEW BID PRN Review of Systems Except as stated in HPI: all other systems reviewed are Neg Physical Exam Narrative GENERAL: Well-developed, well-nourished, comfortable, no apparent distress. SKIN: Focused skin assessment warm/dry. HEAD: Atraumatic. Normocephalic. EYES: Pupils equal and round. No scleral icterus. No injection or drainage. ENT: Mucous membranes pink and moist. NECK: Trachea midline. No JVD. CARDIOVASCULAR: Regular rate and rhythm. RESPIRATORY: No accessory muscle use. Clear to auscultation. Breath sounds equal bilaterally. GASTROINTESTINAL: Abdomen soft, nondistended. Mild diffuse tenderness without peritoneal signs. Normal bowel sounds. MUSCULOSKELETAL: No obvious deformities. No clubbing. No cyanosis. No edema. NEUROLOGICAL: Awake and alert. No obvious cranial nerve deficits. Motor grossly within normal limits. Normal speech. PSYCHIATRIC: Appropriate mood and affect; insight and judgment normal. Data Data Last Documented VS Vital Signs Date Time Temp Pulse Resp B/P (MAP) Pulse Ox O2 Delivery O2 Flow Rate FiO2 08/02/17 03:00 77 18 149/67 (94) 97 Room Air 08/02/17 00:46 97.8 Orders Orders Complete Blood Count With Diff (08/02/17 00:50) Comprehensive Metabolic Panel (08/02/17 00:50) Lipase (08/02/17 00:50) Lactic Acid (08/02/17 00:50) Prothrombin Time / Inr (Pt) (08/02/17 00:50) Act Partial Throm Time (Ptt) (08/02/17 00:50) Urinalysis - C+S If Indicated (08/02/17 00:50) Ct Abd/Pel W Iv Contrast(Rout) (08/02/17 00:50) Iv Access Insert/Monitor (08/02/17 00:50) Ecg Monitoring (08/02/17 00:50) Oximetry (08/02/17 00:50) Morphine Inj (Morphine Inj) (08/02/17 01:00) Ondansetron Inj (Zofran Inj) (08/02/17 01:00) Sodium Chlor 0.9% 1000 Ml Inj (Ns 1000 M (08/02/17 00:50) Sodium Chloride 0.9% Flush (Ns Flush) (08/02/17 01:00) Iohexol 350 Inj (Omnipaque 350 Inj) (08/02/17 02:21) Morphine Inj (Morphine Inj) (08/02/17 03:15) Labs Laboratory Tests Test 08/02/17 00:58 08/02/17 01:00 08/02/17 02:50 White Blood Count 7.4 TH/MM3 Red Blood Count 3.74 MIL/MM3 Hemoglobin 11.4 GM/DL Hematocrit 34.8 % Mean Corpuscular Volume 93.2 FL Mean Corpuscular Hemoglobin 30.6 PG Mean Corpuscular Hemoglobin Concent 32.9 % Red Cell Distribution Width 14.7 % Platelet Count 165 TH/MM3 Mean Platelet Volume 8.4 FL Neutrophils (%) (Auto) 87.6 % Lymphocytes (%) (Auto) 5.2 % Monocytes (%) (Auto) 6.7 % Eosinophils (%) (Auto) 0.3 % Basophils (%) (Auto) 0.2 % Neutrophils # (Auto) 6.5 TH/MM3 Lymphocytes # (Auto) 0.4 TH/MM3 Monocytes # (Auto) 0.5 TH/MM3 Eosinophils # (Auto) 0.0 TH/MM3 Basophils # (Auto) 0.0 TH/MM3 CBC Comment DIFF FINAL Differential Comment Prothrombin Time 10.7 SEC Prothromb Time International Ratio 1.1 RATIO Activated Partial Thromboplast Time 23.5 SEC Blood Urea Nitrogen 27 MG/DL Creatinine 1.04 MG/DL Random Glucose 152 MG/DL Total Protein 6.9 GM/DL Albumin 3.8 GM/DL Calcium Level 9.4 MG/DL Alkaline Phosphatase 91 U/L Aspartate Amino Transf (AST/SGOT) 17 U/L Alanine Aminotransferase (ALT/SGPT) 22 U/L Total Bilirubin 0.8 MG/DL Sodium Level 140 MEQ/L Potassium Level 4.1 MEQ/L Chloride Level 105 MEQ/L Carbon Dioxide Level 29.6 MEQ/L Anion Gap 5 MEQ/L Estimat Glomerular Filtration Rate 68 ML/MIN Lipase 76 U/L Lactic Acid Level 0.9 mmol/L [facility] Medical Decision Making Medical Screen Exam Complete: Yes Emergency Medical Condition: Yes Differential Diagnosis Gastroenteritis, food poisoning, metabolic abnormality, colitis, diverticulitis , bowel obstruction unlikely Narrative Course Vital signs reviewed. CBC and CMP are essentially unremarkable. CT abdomen pelvis: CONCLUSION: 1. Abnormal bowel gas pattern again noted with multiple loops of borderline dilated small bowel again noted. 2. Postoperative changes again noted involving the liver. 3. Anterior abdominal wall hernia with mesenteric fat. 4. Small right pleural effusion. Patient was made aware of all findings. He continues to complain of abdominal pain despite receiving a dose of morphine. There are no peritoneal signs on exam. He'll be admitted for further treatment and evaluation of intractable abdominal pain, partial SBO. Case discussed with medical residents. The patient will be admitted to their service under Dr. Babb Diagnosis Primary Impression: Intractable abdominal pain Additional Impression: Partial small bowel obstruction Admitting Information Admitting Physician Requests: Daniel Sheppard MD Aug 02, 2017 00:55
[2017-08-02] MEDS ORDERED: ONDANSETRON HCL 4 MG/2 ML VIAL IVP ONE (01:00)
[2017-08-02] MEDS ORDERED: SODIUM CHLORIDE 0.9% FLUSH 10 ML FLUSH IV FLUSH PRN (01:00)
[2017-08-02] MEDS ORDERED: MORPHINE SULFATE 4 MG/ML INJ IV PUSH ONE ×2 (01:00→03:15)
[2017-08-02 01:14] LABS: AUTOMATED NEUTROPHIL # 6.5 TH/MM3 (1.8-7.7); BASOPHIL % 0.2 % (0.0-2.0); EOSINOPHIL % 0.3 % (0.0-4.0); HEMATOCRIT 34.8 % (39.0-51.0); HEMO FLAGS DIFF FINAL; LYMPH % 5.2 % (9.0-44.0); LYMPHOCYTE # 0.4 TH/MM3 (1.0-4.8); MEAN CELL VOLUME 93.2 FL (80.0-100.0); MEAN CORPUSCULAR HEMOGLOBIN 30.6 PG (27.0-34.0); MEAN CORPUSCULAR HGB CONC 32.9 % (32.0-36.0); MONO % 6.7 % (0.0-8.0); NEUT % 87.6 % (16.0-70.0); PLATELET COUNT 165 TH/MM3 (150-450); RED BLOOD COUNT 3.74 MIL/MM3 (4.50-5.90); RED CELL DISTRIBUTION WIDTH 14.7 % (11.6-17.2); WHITE BLOOD COUNT 7.4 TH/MM3 (4.0-11.0)
[2017-08-02 01:26] LABS: APTT (PATIENT) 23.5 SEC (24.3-30.1); INTERNATIONAL NORMALIZED RATIO 1.1 RATIO; PROTHROMBIN TIME - PATIENT 10.7 SEC (9.8-11.6)
[2017-08-02 01:36] LABS: ALT (GPT) 22 U/L (12-78); ANION GAP 5 MEQ/L (5-15); AST (GOT) 17 U/L (15-37); BICARBONATE 29.6 MEQ/L (21.0-32.0); BLOOD UREA NITROGEN 27 MG/DL (7-18); CHLORIDE 105 MEQ/L (98-107); GLOMERULAR FILTRATION RATE 68 ML/MIN (>89); POTASSIUM 4.1 MEQ/L (3.5-5.1); SODIUM (NA) 140 MEQ/L (136-145)
[2017-08-02 01:37] LABS: ALKALINE PHOSPHATASE 91 U/L (45-117); TOTAL BILIRUBIN ADULT 0.8 MG/DL (0.2-1.0)
[2017-08-02] MEDS ORDERED: IOHEXOL 350 MG/ML 10 ML VIAL (for RAD DIAG) IVCONTRAST ONE (02:21)
--- NOTE | 2017-08-02 02:34 | RADRPT ---
EXAM DATE/TIME: 08/02/2017 02:07 [facility] COMPARISON: CT ABDOMEN & PELVIS W/O CONTRAST, May 27, 2017, 3:59. CT ABDOMEN & PELVIS W CONTRAST, August 05, 2016, 5:31. INDICATIONS : Abdomen pain. IV CONTRAST: 90 cc Omnipaque 350 (iohexol) IV ORAL CONTRAST: No oral contrast ingested. RADIATION DOSE: 6.1 CTDIvol (mGy) MEDICAL HISTORY : Carcinoma, prostate. Hernia, hiatal. Carcinoma, colon. SURGICAL HISTORY : None. ENCOUNTER: Initial ACUITY: 1 day PAIN SCALE: 6/10 LOCATION: Bilateral abdomen TECHNIQUE: Volumetric scanning of the abdomen and pelvis was performed. Using automated exposure control and ad justment of the mA and/or kV according to patient size, radiation dose was kept as low as reasonably achievable to obtain optimal diagnostic quality images. DICOM format image data is available electro nically for review and comparison. FINDINGS: LOWER LUNGS: A small right pleural effusion is again noted. LIVER: Homogeneous density without lesion. Postsurgical changes are again noted along the posterior dome of the liver. There is no dilation of the biliary tree. No calcified gallstones. SPLEEN: Normal size without lesion. PANCREAS: Within normal limits. KIDNEYS: Normal in size and shape. There is no mass, stone or hydronephrosis. ADRENAL GLANDS: Within normal limits. VASCULAR: There is no aortic aneurysm. BOWEL/MESENTERY: Abnormal bowel gas pattern is again noted with multiple loops of borderline dilated small bowel again noted. Gas and stool is noted segments in the colon. ABDOMINAL WALL: There is a small anterior abdominal wall hernia containing mesenteric fat. The seen on image #37 the axial sequences. RETROPERITONEUM: There is no lymphadenopathy. BLADDER: No wall thickening or mass. REPRODUCTIVE: Within normal limits. INGUINAL: There is no lymphadenopathy or hernia. Postoperative changes are noted in the right inguinal region. MUSCULOSKELETAL: Osteopenia, degenerative change and scoliosis are again noted. CONCLUSION: 1. Abnormal bowel gas pattern again noted with multiple loops of borderline dilated small bowel again noted. 2. Postoperative changes again noted involving the liver. 3. Anterior abdominal wall hernia with mesenteric fat. 4. Small right pleural effusion. Yosvany Conde MD on August 02, 2017 at 2:28 Board Certified Radiologist. This report was verified electronically.
[2017-08-02 03:23] LABS: BLOOD, URINE NEG (NEG); COMMENT (UR) CULT NOT INDICATED; CULTURE IF INDICATED CULT NOT INDICATED; GLUCOSE,URINE NEG (NEG); KETONE, URINE 10 mg/dL (NEG); MUCUS URINE FEW /lpf (OCC); NITRITE,URINE NEG (NEG); PH, URINE 6.5 (5.0-8.5); SQUAMOUS EPITHELIAL CELL URINE <1 /hpf (0-5); URINE COLOR YELLOW (YELLW/STRAW)
--- NOTE | 2017-08-02 03:42 | HHI.HP ---
[facility] Service Family Medicine Primary Care Physician Chrsi Doherty MD Admission Diagnosis Intractable abdominal pain, partial SBO Diagnoses: International Travel<30 Days: No Contact w/Intl Traveler<30days: No Known Affected Area: No History of Present Illness Mr. Peters is a 86-year-old male presenting to the ED with abdominal pain. He states that around 1800 last night he began to experience periumbilical abdominal pain. This abdominal pain was followed by 3 episodes of nonbloody diarrhea as well as 1 episode of nonbloody vomiting. He states prior to this episode he ate "a questionable hotdog [employer] for lunch" and crab cakes for dinner. He rates the pain at a 10 out of 10 just superior to his umbilicus. He states the pain is nonradiating and has not resolved with Gas-X or Tums. Otherwise he has no acute complaints and denies any fevers, chills, shortness of breath, chest pain, or calf tenderness. Of note patient has had multiple abdominal procedures including liver resection, colon resection, and hernia repair. (Fabricio Siegel MD R2) Review of Systems Constitutional: DENIES: Fever, Chills Eyes: DENIES: Blurred vision Ears, nose, mouth, throat: DENIES: Throat pain, Running Nose Respiratory: DENIES: Cough, Sputum production Cardiovascular: DENIES: Chest pain, Syncope Gastrointestinal: COMPLAINS OF: Abdominal pain, Diarrhea, Nausea, Vomiting, DENIES: Bloody stools, Constipation Genitourinary: DENIES: Dysuria Musculoskeletal: DENIES: Joint pain Integumentary: DENIES: Rash Hematologic/lymphatic: DENIES: Lymphadenopathy Immunologic/allergic: DENIES: Urticaria Neurologic: DENIES: Headache Psychiatric: DENIES: Mood changes (Fabricio Siegel MD R2) Past Family Social History Past Medical History - ? 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 The left frontal parietal subdural hematoma measured 10 mm in greatest width in the right posterior parietal subdural hematoma measured 6 mm in greatest width. These findings were stable on repeat CT during the hospitalization. A brain MRI showed atrophy with marked periventricular white matter changes. A brain MRA was negative. A magnetic resonance venogram was negative for venous thrombosis. - Fall (tripped over parking curb; sustained a right humeral neck fracture - Past Surgical History - partial colectomy 1987 and 2007 - partial liver resection 2000 - bilateral cataract extraction - TURP - retinal surgery L. 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 SKIN: Warm and dry. No rash. HEENT: Atraumatic, normocephalic with EOMI. PERRLA. Mucous membranes dry. Oropharynx clear. No rhinorrhea. No LAD, JVD, or thyroid abnormality. CARDIOVASCULAR: Regular rate and rhythm without obvious murmurs, gallops, or rubs. RESPIRATORY: Clear to auscultation bilaterally no CRW. Increased work of breathing. GASTROINTESTINAL: Abdomen soft, nondistended with positive bowel sounds. Patient mildly tender in the supra-umbilical region. Negative Santos sign, negative tenderness at McBurney's point. No rebound tenderness or guarding. MUSCULOSKELETAL: No cyanosis or edema. Strength grossly WNL. Ambulating well. BACK: Nontender without obvious deformity. No CVA tenderness. NEURO/PSYCH: Afocal. Awake, alert, and oriented x3. Normal speech and judgment. Laboratory Laboratory Tests Test 08/02/17 00:58 08/02/17 01:00 08/02/17 02:50 White Blood Count 7.4 Red Blood Count 3.74 Hemoglobin 11.4 Hematocrit 34.8 Mean Corpuscular Volume 93.2 Mean Corpuscular Hemoglobin 30.6 Mean Corpuscular Hemoglobin Concent 32.9 Red Cell Distribution Width 14.7 Platelet Count 165 Mean Platelet Volume 8.4 Neutrophils (%) (Auto) 87.6 Lymphocytes (%) (Auto) 5.2 Monocytes (%) (Auto) 6.7 Eosinophils (%) (Auto) 0.3 Basophils (%) (Auto) 0.2 Neutrophils # (Auto) 6.5 Lymphocytes # (Auto) 0.4 Monocytes # (Auto) 0.5 Eosinophils # (Auto) 0.0 Basophils # (Auto) 0.0 CBC Comment DIFF FINAL Differential Comment Prothrombin Time 10.7 Prothromb Time International Ratio 1.1 Activated Partial Thromboplast Time 23.5 Blood Urea Nitrogen 27 Creatinine 1.04 Random Glucose 152 Total Protein 6.9 Albumin 3.8 Calcium Level 9.4 Alkaline Phosphatase 91 Aspartate Amino Transf (AST/SGOT) 17 Alanine Aminotransferase (ALT/SGPT) 22 Total Bilirubin 0.8 Sodium Level 140 Potassium Level 4.1 Chloride Level 105 Carbon Dioxide Level 29.6 Anion Gap 5 Estimat Glomerular Filtration Rate 68 Lipase 76 Lactic Acid Level 0.9 Urine Color YELLOW Urine Turbidity CLEAR Urine pH 6.5 Urine Specific [place] 1.034 Urine Protein TRACE Urine Glucose (UA) NEG Urine Ketones 10 Urine Occult Blood NEG Urine Nitrite NEG Urine Bilirubin NEG Urine Urobilinogen LESS THAN 2.0 Urine Leukocyte Esterase NEG Urine RBC 1 Urine WBC 1 Urine Squamous Epithelial Cells <1 Urine Mucus FEW Microscopic Urinalysis Comment CULT NOT INDICATED (Fabricio Siegel MD R2) Result Diagram: 08/02/175708/02/1757 Caprini VTE Risk Assessment Caprini VTE Risk Assessment: Mod/High Risk (score >= 2) Caprini Risk Assessment Model Point Value = 1 Point Value = 2 Point Value = 3 Point Value = 5 Age 41-60 Minor surgery BMI > 25 kg/m2 Swollen legs Varicose veins or History of unexplained or recurrent spontaneous Oral contraceptives or hormone replacement Sepsis (< 1 month) Serious lung disease, including pneumonia (< 1 month) Abnormal pulmonary function Acute myocardial infarction Congestive heart failure (< 1 month) History of inflammatory bowel disease Medical patient at bed rest Age 61-74 Arthroscopic surgery Major open surgery (> 45 min) Laparoscopic surgery (> 45 min) Malignancy Confined to bed (> 72 hours) Immobilizing plaster cast Central venous access Age >= 75 History of VTE Family history of VTE Factor V Leiden Prothrombin [id number] Lupus anticoagulant Anticardiolipin antibodies Elevated serum homocysteine Heparin-induced thrombocytopenia Other congenital or acquired thrombophilia Stroke (< 1 month) Elective arthroplasty Hip, pelvis, or leg fracture Acute spinal cord injury (< 1 month) Prophylaxis Regimen Total Risk Factor Score Risk Level Prophylaxis Regimen 0-1 Low Early ambulation 2 Moderate Order ONE of the following: *Sequential Compression Device (SCD) *Heparin 5000 units SQ BID 3-4 Higher Order ONE of the following medications: *Heparin 5000 units SQ TID *Enoxaparin/Lovenox 40 mg SQ daily (WT < 150 kg, CrCl > 30 mL/min) *Enoxaparin/Lovenox 30 mg SQ daily (WT < 150 kg, CrCl > 10-29 mL/min) *Enoxaparin/Lovenox 30 mg SQ BID (WT < 150 kg, CrCl > 30 mL/min) AND/OR *Sequential Compression Device (SCD) 5 or more Highest Order ONE of the following medications: *Heparin 5000 units SQ TID (Preferred with Epidurals) *Enoxaparin/Lovenox 40 mg SQ daily (WT < 150 kg, CrCl > 30 mL/min) *Enoxaparin/Lovenox 30 mg SQ daily (WT < 150 kg, CrCl > 10-29 mL/min) *Enoxaparin/Lovenox 30 mg SQ BID (WT < 150 kg, CrCl > 30 mL/min) AND *Sequential Compression Device (SCD) (Fabricio Siegel MD R2) Assessment and Plan Assessment and Plan Mr. Peters is a 86-year-old male presenting to the ED with abdominal pain admitted for partial SBO. Code Status Full code Discussed Condition With Dr. Lopez (Fabricio Siegel MD R2) Attending Attestation Patient seen and examined. Case reviewed and discussed with the resident team. Agree with plan of care as discussed with me and documented in the resident note. pt seen on the day of admission and was already feeling much better. he wanted to eat and drink and was blaming a "questionable hot dog" he ate 3-4 hours before having the abdominal problems. fortunately, he is doing much better with no more distress or problems in the afternoon when I saw him (Perla Hutchins MD) Problem List: (1) Partial bowel obstruction ICD Codes: K56.600 - Partial intestinal obstruction, unspecified as to cause Status: Acute Plan: Imaging/studies: -Abdominal CT: Abnormal bowel gas pattern again noted with multiple loops of borderline dilated small bowel. Postoperative changes again noted involving the liver. Anterior abdominal wall hernia with mesenteric fat. Small right pleural effusion. -CBC: H/H 11.4/34.8 -CMP: BUN 27, glucose 152 -Lactic acid 0.9 -UA: Ketones 10 Medications: -Constipation protocol in place -Normal saline +20 KCl at 125 mL per hour -Morphine 2 mg IV push every 2 hours when necessary for abdominal pain -Zofran when necessary for nausea/vomiting (2) Myasthenia gravis ICD Codes: G70.00 - Myasthenia gravis Status: Chronic Plan: -Continue Mestinon 120 mg 3 times a day Permanent Comment: Dysphagia; elevated acetycholine recept bind AB elevated, striated muscle ab + Last Edited By: Chris Doherty on Aug 26, 2014 13:53 (3) GERD Status: Chronic Plan: -Protonix 40 mg daily (4) Anxiety ICD Codes: F41.9 - Anxiety Status: Chronic Plan: -Hold home clonazepam (5) Nutrition, metabolism, and development symptoms ICD Codes: R63.8 - Other symptoms and signs concerning food and fluid intake Status: Acute Plan: -Fluids: Normal saline +20 KCl at 110 mL per hour -Diet: Nothing by mouth due to partial bowel obstruction -Electrolytes: Within normal limits, continue to monitor (6) No contraindication to deep vein thrombosis (DVT) prophylaxis ICD Codes: Z78.9 - Other specified health status Status: Acute Plan: -Heparin 5000 units every 8 hours -SCDs (Fabricio Siegel MD R2) Problem Qualifiers (1) Partial bowel obstruction: Qualified Codes: K56.600 - Partial intestinal obstruction, unspecified as to cause (2) GERD: Qualified Codes: K21.9 - Gastro-esophageal reflux disease without esophagitis Fabricio Siegel MD R2 Aug 02, 2017 03:42 Perla Hutchins MD Aug 04, 2017 12:17
[2017-08-02] MEDS ORDERED: SENNOSIDES 8.6 MG TAB PO PRN (03:45)
[2017-08-02] MEDS ORDERED: ACETAMINOPHEN 650 MG SUPP RECTAL PRN (03:45)
[2017-08-02] MEDS ORDERED: LACTULOSE SYRUP 20 GM/30 ML CUP PO PRN (03:45)
[2017-08-02] MEDS ORDERED: BISACODYL 10 MG SUPP RECTAL PRN (03:45)
[2017-08-02] MEDS ORDERED: MAGNESIUM HYDROXIDE SUSP 30 ML CUP PO PRN (03:45)
[2017-08-02] MEDS ORDERED: ONDANSETRON HCL 4 MG/2 ML VIAL IV PUSH PRN (03:45)
[2017-08-02] MEDS ORDERED: MORPHINE SULFATE 4 MG/ML INJ IV PUSH PRN (03:45)
[2017-08-02] MEDS: NS + KCL 20 MEQ INJ 1,000 ML IV SCH ×3 (04:01→17:58)
[2017-08-02] MEDS: HEPARIN SODIUM - SQ 10,000 UNITS/ML VIAL SQ SCH ×3 (06:36→22:00)
[2017-08-02] MEDS: PANTOPRAZOLE SODIUM 40 MG VIAL IV PUSH SCH (06:41)
[2017-08-02] MEDS: CHOLECALCIFEROL (VIT D3) 1000 UNIT TAB PO SCH (09:13)
[2017-08-02] MEDS: CYANOCOBALAMIN 1,000 MCG TAB PO SCH (09:13)
[2017-08-02] MEDS: PYRIDOSTIGMINE BROMIDE 60 MG TAB PO SCH ×3 (09:13→17:56)
[2017-08-02] MEDS: CALCIUM CARBONATE 500 MG CHEWABLE TAB CHEW SCH ×2 (09:13→21:00)
[2017-08-02] MEDS: DOCUSATE SODIUM 50 MG/SENNA 8.6 MG TAB PO SCH ×2 (09:14→21:00)
[2017-08-02] MEDS: FUROSEMIDE 40 MG TAB PO SCH (09:14)
[2017-08-02] MEDS ORDERED: ALPRAZolam 0.25 MG TAB PO PRN (12:00)
[2017-08-03] VITALS: BP 116/58; PULSE 62; RESP 20; TEMP 97.7; O2SAT 95
[2017-08-03 01:36] VITALS: O2SAT 98
[2017-08-03 04:00] VITALS: BP 120/59; PULSE 56; RESP 20; TEMP 97.7; O2SAT 96
[2017-08-03] MEDS: HEPARIN SODIUM - SQ 10,000 UNITS/ML VIAL SQ SCH (06:00)
[2017-08-03] MEDS: NS + KCL 20 MEQ INJ 1,000 ML IV SCH (07:00)
[2017-08-03 07:36] LABS: AUTOMATED NEUTROPHIL # 1.1 TH/MM3 (1.8-7.7); BASOPHIL % 1.1 % (0.0-2.0); EOSINOPHIL # 0.1 TH/MM3 (0-0.4); EOSINOPHIL % 4.2 % (0.0-4.0); HEMATOCRIT 30.9 % (39.0-51.0); LYMPH % 19.4 % (9.0-44.0); LYMPHOCYTE # 0.4 TH/MM3 (1.0-4.8); MEAN CORPUSCULAR HEMOGLOBIN 31.1 PG (27.0-34.0); MEAN CORPUSCULAR HGB CONC 33.1 % (32.0-36.0); MONO % 13.8 % (0.0-8.0); NEUT % 61.5 % (16.0-70.0); PLATELET COUNT 106 TH/MM3 (150-450); RED BLOOD COUNT 3.29 MIL/MM3 (4.50-5.90); RED CELL DISTRIBUTION WIDTH 14.6 % (11.6-17.2); WHITE BLOOD COUNT 1.9 TH/MM3 (4.0-11.0)
[2017-08-03 07:42] LABS: HEMO FLAGS AUTO DIFF
[2017-08-03] MEDS: PANTOPRAZOLE SODIUM 40 MG VIAL IV PUSH SCH (07:45)
[2017-08-03 08:00] VITALS: BP 136/65; PULSE 55; RESP 17; TEMP 95.8; O2SAT 96
[2017-08-03 08:09] LABS: ALKALINE PHOSPHATASE 91 U/L (45-117); ALT (GPT) 46 U/L (12-78); ANION GAP 4 MEQ/L (5-15); AST (GOT) 39 U/L (15-37); BICARBONATE 29.1 MEQ/L (21.0-32.0); BLOOD UREA NITROGEN 19 MG/DL (7-18); CHLORIDE 108 MEQ/L (98-107); GLOMERULAR FILTRATION RATE 76 ML/MIN (>89); POTASSIUM 3.8 MEQ/L (3.5-5.1); SODIUM (NA) 141 MEQ/L (136-145); TOTAL BILIRUBIN ADULT 1.1 MG/DL (0.2-1.0)
[2017-08-03 08:38] LABS: BANDS 5 % (0-6); BASOPHILS 3 % (0-2); EOSINOPHILS 7 % (0-4); NEUTROPHIL # MANUAL DIFF 1.3 TH/MM3 (1.8-7.7); POLYS (SEG NEUTROPHILS) 61 % (16-70); WBC DIFF SAMPLE 100
[2017-08-03 08:39] LABS: OVALOCYTES 1+ (NORMAL); PLATELET ESTIMATE SMEAR LOW (NORMAL); PLATELET MORPHOLOGY NORMAL (NORMAL); SCAN/DIFF FINAL DIFF MANUAL
[2017-08-03] MEDS: CYANOCOBALAMIN 1,000 MCG TAB PO SCH (09:00)
[2017-08-03] MEDS: CHOLECALCIFEROL (VIT D3) 1000 UNIT TAB PO SCH (09:00)
[2017-08-03] MEDS: FUROSEMIDE 40 MG TAB PO SCH (09:00)
[2017-08-03] MEDS: PYRIDOSTIGMINE BROMIDE 60 MG TAB PO SCH (09:16)
[2017-08-03] MEDS: CALCIUM CARBONATE 500 MG CHEWABLE TAB CHEW SCH (09:16)
[2017-08-03] MEDS: DOCUSATE SODIUM 50 MG/SENNA 8.6 MG TAB PO SCH (09:17)
--- NOTE | 2017-08-03 09:17 | HHI.FPPN ---
Subjective Remarks Patient seen and examined this morning. Afebrile vital signs stable. He has been up and walking around. He does report having several bowel movements between yesterday and today. He says that his appetite is returning to normal. He is wishing to the hospital today. His small bowel obstruction appears to have resolved. (Ayden Alejo MD, R3) Objective Vitals Vital Signs Date Time Temp Pulse Resp B/P (MAP) Pulse Ox O2 Delivery O2 Flow Rate FiO2 08/03/17 08:00 95.8 55 17 136/65 (88) 96 08/03/17 04:00 97.7 56 20 120/59 (79) 96 08/03/17 01:36 98 08/03/17 00:00 97.7 62 20 116/58 (77) 95 08/02/17 20:00 98.1 62 20 142/59 (86) 98 08/02/17 16:00 96.5 60 17 121/60 (80) 100 08/02/17 12:00 96.8 60 17 142/63 (89) 99 I/O 08/02/17 08/02/17 08/02/17 08/03/17 08/03/17 08/03/17 07:00 15:00 23:00 07:00 15:00 23:00 Intake Total 300 ml 420 ml 1200 ml Output Total 400 ml 300 ml Balance 300 ml 420 ml 800 ml -300 ml Intake Oral 0 ml 420 ml 300 ml IV Total 300 ml 900 ml Output Urine Total 400 ml 300 ml # Voids 1 5 # Bowel Movements 0 0 1 0 (Ayden Alejo MD, R3) Result Diagram: 08/03/17 0712 08/03/17 0712 Imaging Last Impressions Abdomen/Pelvis CT 08/02/17 0050 Signed Impressions: Service Date/Time: Wednesday, August 02, 2017 02:07 - CONCLUSION: 1. Abnormal bowel gas pattern again noted with multiple loops of borderline dilated small bowel again noted. 2. Postoperative changes again noted involving the liver. 3. Anterior abdominal wall hernia with mesenteric fat. 4. Small right pleural effusion. Yosvany Conde MD Objective Remarks GEN: Well-developed, well-nourished patient. No acute distress. CV: Regular rate and rhythm without obvious murmurs LUNGS: Clear to auscultation bilaterally. Normal respiratory effort. No wheezes , rales, rhonchi. GI: Soft, nontender, nondistended. No palpable masses. Bowel sounds WNL. EXT: No edema. NEURO/PSYCH: Afocal. Awake, alert, and oriented x3. Appropriate insight and judgment. Medications and IVs Current Medications Medications (Trade) Dose Ordered Sig/Brock Route Start Time Stop Time Status Last Admin (NS Flush) 2 ml UNSCH PRN IV FLUSH 08/02/17 01:00 (Tums Chew) 1,000 mg BID CHEW 08/02/17 09:00 08/02/17 21:00 (Vitamin D3) 2,000 units DAILY PO 08/02/17 09:00 (Vitamin B12) 1,000 mcg DAILY PO 08/02/17 09:00 (Mestinon) 120 mg TID PO 08/02/17 09:00 08/02/17 17:56 (Lasix) 40 mg DAILY PO 08/02/17 09:00 Potassium Chloride/Sodium Chloride 1,000 ml @ 110 mls/hr Q9H6M IV 08/02/17 03:42 08/02/17 17:58 (Morphine Inj) 2 mg Q4H PRN IV PUSH 08/02/17 03:45 (Zofran Inj) 4 mg Q6H PRN IV PUSH 08/02/17 03:45 08/02/17 09:19 (Tylenol Supp) 650 mg Q4H PRN RECTAL 08/02/17 03:45 (Ramona-Colace) 1 tab BID PO 08/02/17 09:00 08/02/17 21:00 (Milk Of Magnesia Liq) 30 ml Q12H PRN PO 08/02/17 03:45 (Senokot) 17.2 mg Q12H PRN PO 08/02/17 03:45 (Dulcolax Supp) 10 mg DAILY PRN RECTAL 08/02/17 03:45 (Lactulose Liq) 30 ml DAILY PRN PO 08/02/17 03:45 (Heparin Inj) 5,000 units Q8HR SQ 08/02/17 06:00 08/02/17 22:00 (Protonix Inj) 40 mg Q24H IV PUSH 08/02/17 06:00 08/03/17 07:45 (Xanax) 0.25 mg DAILY PRN PO 08/02/17 12:00 08/02/17 23:45 (Ayden Alejo MD, R3) A/P Assessment and Plan Mr. Peters is a 86-year-old male presenting to the ED with abdominal pain admitted for partial SBO. Discharge Planning Discharge home today (Ayden Aeljo MD, R3) Attending Attestation Patient seen and examined. Case reviewed and discussed with the resident team. Agree with plan of care as discussed with me and documented in the resident note. I am familiar with Mr Peters from an earlier hospitalization. he felt much better when I saw him the day of admission and wanted to eat and drink. Today he is eager to go home. He does focus on his bowels and reported every bowel movement and because he had a few loose movements wanted to take Imodium. I cautioned him against that as he could end up constipated. He is doing well and can follow up as an outpt (Perla Hutchins MD) Problem List: (1) Partial bowel obstruction ICD Codes: K56.600 - Partial intestinal obstruction, unspecified as to cause Status: Acute Plan: Imaging/studies: -Abdominal CT: Abnormal bowel gas pattern again noted with multiple loops of borderline dilated small bowel. Postoperative changes again noted involving the liver. Anterior abdominal wall hernia with mesenteric fat. Small right pleural effusion. -CBC: H/H 11.4/34.8 -CMP: BUN 27, glucose 152 -Lactic acid 0.9 -UA: Ketones 10 Medications: -Constipation protocol in place -Progressing diet as tolerated -Morphine 2 mg IV push every 2 hours when necessary for abdominal pain -Zofran when necessary for nausea/vomiting (2) Myasthenia gravis ICD Codes: G70.00 - Myasthenia gravis Status: Chronic Plan: -Continue Mestinon 120 mg 3 times a day Permanent Comment: Dysphagia; elevated acetycholine recept bind AB elevated, striated muscle ab + Last Edited By: Chris Doherty on Aug 26, 2014 13:53 (3) GERD Status: Chronic Plan: -Protonix 40 mg daily (4) Anxiety ICD Codes: F41.9 - Anxiety Status: Chronic Plan: -Continue clonazepam (5) Nutrition, metabolism, and development symptoms ICD Codes: R63.8 - Other symptoms and signs concerning food and fluid intake Status: Acute Plan: -Fluids: Adequate oral intake -Diet: Progressing diet as tolerated -Electrolytes: Within normal limits, continue to monitor (6) No contraindication to deep vein thrombosis (DVT) prophylaxis ICD Codes: Z78.9 - Other specified health status Status: Acute Plan: -Heparin 5000 units every 8 hours -SCDs (Ayden Alejo MD, R3) Problem Qualifiers (1) Partial bowel obstruction: Qualified Codes: K56.600 - Partial intestinal obstruction, unspecified as to cause (2) GERD: Qualified Codes: K21.9 - Gastro-esophageal reflux disease without esophagitis Ayden Alejo MD, R3 Aug 03, 2017 09:17 Perla Hutchins MD Aug 04, 2017 12:15
[2017-08-03] MEDS ORDERED: PERI PO (09:21)
--- NOTE | 2017-08-03 09:27 | HHI.DS ---
Discharge Summary Admission Date Aug 02, 2017 at 04:24 Discharge Date: Aug 03, 2017 Admitting Diagnosis Intractable abdominal pain, partial SBO (1) Partial bowel obstruction Diagnosis: Principal Plan: Imaging/studies: -Abdominal CT: Abnormal bowel gas pattern again noted with multiple loops of borderline dilated small bowel. Postoperative changes again noted involving the liver. Anterior abdominal wall hernia with mesenteric fat. Small right pleural effusion. -CBC: H/H 11.4/34.8 -CMP: BUN 27, glucose 152 -Lactic acid 0.9 -UA: Ketones 10 Medications: -Constipation protocol in place -Progressing diet as tolerated -Morphine 2 mg IV push every 2 hours when necessary for abdominal pain -Zofran when necessary for nausea/vomiting ICD Codes: K56.600 - Partial intestinal obstruction, unspecified as to cause Status: Acute (2) Myasthenia gravis Diagnosis: Secondary Plan: -Continue Mestinon 120 mg 3 times a day ICD Codes: G70.00 - Myasthenia gravis Status: Chronic (3) GERD Diagnosis: Secondary Plan: -Protonix 40 mg daily Status: Chronic (4) Anxiety Diagnosis: Secondary Plan: -Continue clonazepam ICD Codes: F41.9 - Anxiety Status: Chronic (5) Nutrition, metabolism, and development symptoms Diagnosis: Secondary Plan: -Fluids: Adequate oral intake -Diet: Progressing diet as tolerated -Electrolytes: Within normal limits, continue to monitor ICD Codes: R63.8 - Other symptoms and signs concerning food and fluid intake Status: Acute (6) No contraindication to deep vein thrombosis (DVT) prophylaxis Diagnosis: Secondary Plan: -Heparin 5000 units every 8 hours -SCDs ICD Codes: Z78.9 - Other specified health status Status: Acute Brief History Mr. Peters is a 86-year-old male presenting to the ED with abdominal pain. He states that around 1800 last night he began to experience periumbilical abdominal pain. This abdominal pain was followed by 3 episodes of nonbloody diarrhea as well as 1 episode of nonbloody vomiting. He states prior to this episode he ate "a questionable hotdog [employer] for lunch" and crab cakes for dinner. He rates the pain at a 10 out of 10 just superior to his umbilicus. He states the pain is nonradiating and has not resolved with Gas-X or Tums. Otherwise he has no acute complaints and denies any fevers, chills, shortness of breath, chest pain, or calf tenderness. Of note patient has had multiple abdominal procedures including liver resection, colon resection, and hernia repair. CBC/BMP: 08/03/17 0712 08/03/17 0712 Significant Findings Laboratory Tests Test 08/02/17 00:58 08/02/17 01:00 08/02/17 02:50 08/03/17 07:12 Red Blood Count 3.74 MIL/MM3 (4.50-5.90) 3.29 MIL/MM3 (4.50-5.90) Hemoglobin 11.4 GM/DL (13.0-17.0) 10.2 GM/DL (13.0-17.0) Hematocrit 34.8 % (39.0-51.0) 30.9 % (39.0-51.0) Neutrophils (%) (Auto) 87.6 % (16.0-70.0) Lymphocytes (%) (Auto) 5.2 % (9.0-44.0) Lymphocytes # (Auto) 0.4 TH/MM3 (1.0-4.8) 0.4 TH/MM3 (1.0-4.8) Activated Partial Thromboplast Time 23.5 SEC (24.3-30.1) Blood Urea Nitrogen 27 MG/DL (7-18) 19 MG/DL (7-18) Random Glucose 152 MG/DL (74-106) Estimat Glomerular Filtration Rate 68 ML/MIN (>89) 76 ML/MIN (>89) Urine Ketones 10 mg/dL (NEG) Urine Mucus FEW /lpf (OCC) White Blood Count 1.9 TH/MM3 (4.0-11.0) Platelet Count 106 TH/MM3 (150-450) Monocytes (%) (Auto) 13.8 % (0.0-8.0) Eosinophils (%) (Auto) 4.2 % (0.0-4.0) Neutrophils # (Auto) 1.1 TH/MM3 (1.8-7.7) Eosinophils % 7 % (0-4) Basophils % 3 % (0-2) Neutrophils # (Manual) 1.3 TH/MM3 (1.8-7.7) Platelet Estimate LOW (NORMAL) Ovalocytes 1+ (NORMAL) Total Protein 5.7 GM/DL (6.4-8.2) Albumin 3.0 GM/DL (3.4-5.0) Aspartate Amino Transf (AST/SGOT) 39 U/L (15-37) Total Bilirubin 1.1 MG/DL (0.2-1.0) Chloride Level 108 MEQ/L (98-107) Anion Gap 4 MEQ/L (5-15) Imaging Last Impressions Abdomen/Pelvis CT 08/02/17 0050 Signed Impressions: Service Date/Time: Wednesday, August 02, 2017 02:07 - CONCLUSION: 1. Abnormal bowel gas pattern again noted with multiple loops of borderline dilated small bowel again noted. 2. Postoperative changes again noted involving the liver. 3. Anterior abdominal wall hernia with mesenteric fat. 4. Small right pleural effusion. Yosvany Conde MD PE at Discharge GEN: Well-developed, well-nourished patient. No acute distress. CV: Regular rate and rhythm without obvious murmurs LUNGS: Clear to auscultation bilaterally. Normal respiratory effort. No wheezes , rales, rhonchi. GI: Soft, nontender, nondistended. No palpable masses. Bowel sounds WNL. EXT: No edema. NEURO/PSYCH: Afocal. Awake, alert, and oriented x3. Appropriate insight and judgment. Hospital Course Patient was admitted on 08/02/17 partial small bowel obstruction. His obstruction resolved with bowel rest and constipation protocol. On he felt that he had returned to baseline, his appetite was improving, and he had several bowel movements while being in the hospital. We'll add another medication to his constipation prevention and hopes to prevent repeat episodes. Pt Condition on Discharge: Stable Discharge Disposition: Discharge Home Discharge Instructions DIET: Follow Instructions for: As Tolerated, No Restrictions Activities you can perform: Regular-No Restrictions Follow up Referrals: PCP Follow-up - 1 Week with Chris Doherty MD New Medications: Sennosides-Docusate Sodium (Gnp Senna Plus 8.6-50 mg) 8.6 Mg-50 Mg Tab 1 TAB PO DAILY, #30 TAB Continued Medications: Alprazolam (Xanax) 0.25 Mg Tab 0.25 MG PO DAILY PRN for ANXIETY, #30 TAB 2 Refills Calcium Carbonate (Antacid) (Tums) 500 Mg Chew 1000 MG CHEW BID PRN for calcium supplement, TAB 0 Refills Cholecalciferol (Vitamin D3) 2,000 Unit Cap 2000 UNITS PO DAILY for Nutritional Supplement, #1 BOTTLE 0 Refills Cyanocobalamin (Vitamin B-12) 1,000 Mcg Tab 1000 MCG PO DAILY for Nutritional Supplement, #1 BOTTLE 0 Refills Cyanocobalamin Inj (Cyanocobalamin Inj) 1,000 Mcg/Ml Inj 1000 MCG IM MONTHLY, #1 VIAL 0 Refills Docusate Sodium (Docusate Sodium) 100 Mg Cap 100 MG PO BID for Prevent Constipation, #60 CAP 0 Refills Nutritional Supplements (Ensure Plus) 1 Liq Liq 1 CAN PO DAILY, CAN Pyridostigmine (Mestinon) 60 Mg Tab 120 MG PO TID for Manage Myastenia Gravis, TAB 0 Refills Ayden Alejo MD, R3 Aug 03, 2017 09:27
--- NOTE | 2017-08-03 09:46 | HHI.DCPOC ---
Discharge Care Plan Diagnosis: (1) Partial bowel obstruction Goals to Promote Your Health * To prevent worsening of your condition and complications * To maintain your health at the optimal level Directions to Meet Your Goals Take your medications as prescribed Follow your dietary instruction Follow activity as directed Keep your appointments as scheduled Take your immunizations and boosters as scheduled If your symptoms worsen call your PCP, if no PCP go to Urgent Care Center or Emergency Room Smoking is Dangerous to Your Health. Avoid second hand smoke Call the 24-hour hour crisis hotline for domestic abuse at Ayden Alejo MD, R3 Aug 03, 2017 09:46
== END 2017-08-03 11:38 | disposition home or self-care (01) | DRG 394 ==
LOC: NEPE 00:34 → NEDA 03:26 → OBSVTOIN 04:24 → N06B 05:00
PROVIDERS: ADMIT Family Medicine; ATTEND Family Medicine
DX: K43.6 Other and unspecified ventral hernia with obstruction, without gangrene (principal); J90 Pleural effusion, not elsewhere classified; G70.00 Myasthenia gravis without (acute) exacerbation; R13.10 Dysphagia, unspecified; K21.9 Gastro-esophageal reflux disease without esophagitis; R35.0 Frequency of micturition; T44.0X5A Adverse effect of anticholinesterase agents, initial encounter; R73.01 Impaired fasting glucose; E78.5 Hyperlipidemia, unspecified; M19.90 Unspecified osteoarthritis, unspecified site; H91.93 Unspecified hearing loss, bilateral; F41.9 Anxiety disorder, unspecified; Z80.8 Family history of malignant neoplasm of other organs or systems; Z85.038 Personal history of other malignant neoplasm of large intestine; Z85.46 Personal history of malignant neoplasm of prostate; Z85.05 Personal history of malignant neoplasm of liver; Z88.2 Allergy status to sulfonamides; Z92.21 Personal history of antineoplastic chemotherapy; Z92.3 Personal history of irradiation
CPT/HCPCS: 74177; 80053; 81001; 83605; 83690; 85007; 85025; 85027; 85610; 85730; 96361; 96374; 96375; 96376; C9113; J1644; J2270; J2405; J3480; J7030; Q9967

== ENCOUNTER 2017-08-16 18:32 | Inpatient (IN) | payer MEDICARE ==
[~2017-08-16] VITALS: Ht 182.9 cm; Wt 69.5 kg
[~2017-08-16 18:32] MED LIST changes: +MILKSUS PO
[2017-08-16 18:35] VITALS: BP 142/63; PULSE 67; RESP 16; TEMP 98.2; O2SAT 97
--- NOTE | 2017-08-16 19:31 | PD ---
HPI Chief Complaint: GI Complaint Time Seen by Provider: 19:18 Travel History International Travel<30 days: No Contact w/Intl Traveler<30days: No Traveled to known affect area: No History of Present Illness HPI The patient is an 86 year old male who presents to the [facility] emergency department with a history of history of difficulty swallowing and talking that began over the weekend. He has a history of Myasthenia Gravis. He is also neurologist earlier today around 1 PM. His neurologist at that time wanted to admit him to the hospital for plasmapheresis, however he reported that he preferred to stay home for the holidays. At dinner time he noticed that he was having increasing difficulty swallowing and was actually coughing when attempting to swallow which concerned him. He called his neurologist office and spoke to the covering physician who recommended that he go to the emergency department for admission. He denies having any upper or lower extremity weakness. He denies having any double vision. He denies having any fevers or chills. He denies having any lung congestion. His only other recent history is significant for 2 days ago discontinuing a diuretic. He reports that his oncologist started him on a diuretic related to some fluid sounds in his lungs. He denies having any prior history of congestive heart failure or myocardial infarction. He reports that he was urinating too frequently, therefore he discontinued it. On review of systems otherwise, the patient denies having any known fevers, neck pain, chest pain, shortness of breath, abdominal pain, vomiting, diarrhea, urinary symptoms, or other neurologic symptoms. PCP: Dr. Doherty. Oncologist: Dr. Garcia Neurologist: Dr. Loyola [facility] Past Medical History Narrative Medical The patient's past medical history is significant for colon cancer with metastasis to liver- part of liver resected 2000, BPH, hyperlidemia, Prostate CA , Myasthenia Gravis, recurrent bowel obstruction. Dr. Garcia. Anemia: Yes Arthritis: Yes Asthma: No Autoimmune Disease: Yes (MYASTHENIA GRAVIS) Blood Disorders: No Anxiety: No Depression: No Cancer: Yes (liver cancer, colon cancer, prostate cancer, cancer of spinal column) Cardiovascular Problems: No High Cholesterol: Yes Chemotherapy: Yes (6 months with liver cancer) Chest Pain: No Congestive Heart Failure: No COPD: No Diabetes: No Diminished Hearing: Yes (BILATERAL HEARING AIDS) Endocrine: No Gastrointestinal Disorders: Yes (COLON/LIVER CA) GERD: No Genitourinary: Yes (urinary frequency related to mestinon) Hiatal Hernia: Yes Hypertension: No Immune Disorder: No Implanted Vascular Access Dvce: No Kidney Stones: No Musculoskeletal: Yes (Myasthenia Gravis) Neurologic: No Psychiatric: No Reproductive: No Respiratory: No Immunizations Current: Yes 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) Renal Failure: No Sleep Apnea: No Thyroid Disease: No Ulcer: No Past Surgical History Narrative Surgical The patient's past surgical history is significant for retina surgery, partial colon resection, partial liver resection, tonsillectomy Abdominal Surgery: Yes (colon resection, colon cx 1987 & 2007/removed half of liver/hernia repair) Eye Surgery: Yes (retina sx -left eye) Pacemaker: No Thoracic Surgery: Yes (LIVER RESECTION 2000) Tonsillectomy: Yes Other Surgery: Yes (HERNIA REPAIR JUN 2001, 2016) Social History Alcohol Use: No Tobacco Use: No Substance Use: No Allergies-Medications (Allergen,Severity, Reaction): Coded Allergies: Sulfa (Sulfonamide Antibiotics) (Unverified Allergy, Severe, Flushing, ) lorazepam (Unverified Allergy, Intermediate, Psychosis, 08/16/17) prochlorperazine (Unverified Allergy, Unknown, JITTERY, 08/16/17) Reported Meds & Prescriptions Reported Meds & Active Scripts Active Docusate Sodium 100 Mg Cap 100 Mg PO BID Xanax (Alprazolam) 0.25 Mg Tab 0.25 Mg PO DAILY PRN Reported Milk of Magnesia Liq (Magnesium Hydroxide) 400 Mg/5 Ml Susp 30 Ml PO DIRECTED PRN 30ml every 3rd day if no regular BM Vitamin B-12 (Cyanocobalamin) 1,000 Mcg Tab 1,000 Mcg PO DAILY Mestinon (Pyridostigmine [place]) 60 Mg Tab 120 Mg PO TID Ensure Plus (Nutritional Supplements) 1 Liq Liq 1 Can PO DAILY Cyanocobalamin Inj (Cyanocobalamin) 1,000 Mcg/Ml Inj 1,000 Mcg IM MONTHLY Vitamin D3 (Cholecalciferol) 2,000 Unit Cap 2,000 Units PO DAILY Tums (Calcium Carbonate (Antacid)) 500 Mg Chew 1,000 Mg CHEW BID PRN Review of Systems Except as stated in HPI: all other systems reviewed are Neg General / Constitutional: No: Fever Eyes: No: Visual changes HENT: Positive: Other (difficulty swallowing), No: Headaches Cardiovascular: No: Chest Pain or Discomfort Respiratory: Positive: Cough, No: Shortness of Breath Gastrointestinal: No: Nausea, Vomiting, Diarrhea, Abdominal Pain Genitourinary: No: Dysuria Musculoskeletal: No: Pain Skin: No Rash Neurologic: Positive: Slurred Speech (difficulty enunciating), No: Weakness, Change in Mentation, Sensory Disturbance Psychiatric: No: Depression Endocrine: No: Polydipsia Hematologic/Lymphatic: No: Easy Bruising Physical Exam Narrative General: The patient is a well-developed well-nourished male in no acute distress. Head and Neck exam: Head is normocephalic atraumatic. Eyes: EOMI, pupils are equal round and reactive to light. Nose: Midline septum with pink mucous membranes Mouth: Dentition unremarkable. Moist mucus membranes. Posterior oropharynx is not erythematous. No tonsillar hypertrophy. Uvula midline. Airway patent. Neck: No palpable lymphadenopathy. No nuchal rigidity. No thyromegaly. Cardiovascular: Regular rate and rhythm without murmurs, gallops, or rubs. Lungs: Clear to auscultation bilaterally. No wheezes, rhonchi, or rales. Abdomen: Soft, without tenderness to palpation in all 4 quadrants of the abdomen. No guarding, rebound, or rigidity. Normal bowel sounds are audible. No tenderness on palpation of McBurney's point. Extremities: No clubbing, cyanosis, or edema. 2+ pulses in all 4 extremities. No calf tenderness on palpation. Back: No costovertebral angle tenderness to palpation. Neurologic Exam: Cranial nerves 2-12 were intact on exam. Strength is 5/5 in all 4 extremities. No sensory deficits noted. Skin Exam: No rash noted. Intact skin that is warm and dry. Data Data Last Documented VS Vital Signs Date Time Temp Pulse Resp B/P (MAP) Pulse Ox O2 Delivery O2 Flow Rate FiO2 08/16/17 18:35 98.2 67 16 142/63 (89) 97 Room Air Orders Orders Electrocardiogram (08/16/17 19:20) Complete Blood Count With Diff (08/16/17 19:20) Comprehensive Metabolic Panel (08/16/17 19:20) Troponin I (08/16/17 19:20) Prothrombin Time / Inr (Pt) (08/16/17 19:20) Act Partial Throm Time (Ptt) (08/16/17 19:20) Magnesium (Mg) (08/16/17 19:20) Chest, Single Ap (08/16/17 19:20) Iv Access Insert/Monitor (08/16/17 19:20) Ecg Monitoring (08/16/17 19:20) Oximetry (08/16/17 19:20) Admit Order (Ed Use Only) (08/16/17 21:33) Admit To Inpatient (08/16/17 ) Vital Signs (Adult) Q4H (08/16/17 21:40) Activity Bed Rest (08/16/17 21:40) Diet Npo (08/17/17 Breakfast) Naloxone Inj (Narcan Inj) (08/16/17 21:45) Inpatient Certification (08/16/17 ) Labs Laboratory Tests Test 08/16/17 20:10 White Blood Count 3.3 TH/MM3 Red Blood Count 3.68 MIL/MM3 Hemoglobin 11.1 GM/DL Hematocrit 33.8 % Mean Corpuscular Volume 91.8 FL Mean Corpuscular Hemoglobin 30.2 PG Mean Corpuscular Hemoglobin Concent 32.9 % Red Cell Distribution Width 14.4 % Platelet Count 148 TH/MM3 Mean Platelet Volume 8.2 FL Neutrophils (%) (Auto) 73.9 % Lymphocytes (%) (Auto) 11.9 % Monocytes (%) (Auto) 11.2 % Eosinophils (%) (Auto) 2.3 % Basophils (%) (Auto) 0.7 % Neutrophils # (Auto) 2.4 TH/MM3 Lymphocytes # (Auto) 0.4 TH/MM3 Monocytes # (Auto) 0.4 TH/MM3 Eosinophils # (Auto) 0.1 TH/MM3 Basophils # (Auto) 0.0 TH/MM3 CBC Comment DIFF FINAL Differential Comment Blood Urea Nitrogen 27 MG/DL Creatinine 1.13 MG/DL Random Glucose 105 MG/DL Total Protein 6.9 GM/DL Albumin 3.7 GM/DL Calcium Level 9.0 MG/DL Magnesium Level 2.1 MG/DL Alkaline Phosphatase 90 U/L Aspartate Amino Transf (AST/SGOT) 22 U/L Alanine Aminotransferase (ALT/SGPT) 18 U/L Total Bilirubin 0.7 MG/DL Sodium Level 141 MEQ/L Potassium Level 4.6 MEQ/L Chloride Level 106 MEQ/L Carbon Dioxide Level 30.0 MEQ/L Anion Gap 5 MEQ/L Estimat Glomerular Filtration Rate 61 ML/MIN Troponin I LESS THAN 0.02 NG/ML MDM Medical Decision Making Medical Screen Exam Complete: Yes Emergency Medical Condition: Yes Medical Record Reviewed: Yes Differential Diagnosis Myasthenia gravis exacerbation, versus aspiration, versus stroke Narrative Course During the course of the patients emergency department visit, the patients history, examination, and differential diagnosis were reviewed with the patient. The patient was placed on a bus driver/monitor with oximetry and frequent blood pressure monitoring. The patient had IV access obtained and blood work sent for analysis. Patient had an ECG done on arrival that shows a sinus bradycardia heart rate of 56, right bundle branch block is noted, QRS duration 140 ms, QTC [address] segment elevation is noted. The patient was initially provided normal saline IV fluids at maintenance rate. The patients laboratory studies were reviewed and remarkable for white count of 3.3, hemoglobin 11.1, platelets 148 with 73.9 neutrophils, monocytes 11.2. CMP is remarkable for V1 and 27, GFR 61, troponin I less than 0.02 Radiology studies were reviewed and remarkable for a chest x-ray that shows a probable small right pleural effusion, mild blunting of the costophrenic angle on the right side. The patient has no other focal findings on neurologic examination to suggest acute stroke. The patient reports that the symptoms are similar to his prior exacerbations of myasthenia gravis. The patient will be admitted to the hospital with a consultation with neurologist, Dr. Loyola. The patients results were discussed with the patient, including the plan of care. I explained that further testing and/ or monitoring is indicated based on the patients history, examination, and/ or laboratory findings. Therefore, I recommended admission for additional evaluation. The patient expressed understanding and was agreeable with this plan. The patient was admitted to the hospital in stable condition and sent to a bed under the care of the family practice residents. Physician Communication Physician Communication The patient's case including history, pertinent physical examination findings, and laboratory studies were discussed with the family practice resident environmental manager. It was agreed that the patient would be admitted to the family practice service. Diagnosis Primary Impression: Myasthenia gravis with acute exacerbation Admitting Information Admitting Physician Requests: Admit Diana Clifford MD Aug 16, 2017 19:31
[2017-08-16 20:00] VITALS: BP 153/70; PULSE 58; RESP 20; O2SAT 100
--- NOTE | 2017-08-16 20:02 | RADRPT ---
EXAM DATE/TIME: 08/16/2017 19:52 [place] COMPARISON: CHEST SINGLE AP, October 12, 2016, 22:34. INDICATIONS : Cough. Patient states trouble swallowing. MEDICAL HISTORY : Carcinoma, prostate. Hernia, hiatal. Carcinoma, colon. Radiation. SURGICAL HISTORY : None. ENCOUNTER: Initial ACUITY: 3 days PAIN SCORE: 0/10 LOCATION: Bilateral chest FINDINGS: The lungs are symmetrically aerated. There is mild blunting of the costophrenic angle on the right s víctor. The left costophrenic angle and left hemidiaphragm are well delineated. The heart is normal in size. CONCLUSION: Probable small right pleural effusion. Agustin Paez MD on August 16, 2017 at 19:58 Board Certified Radiologist. This report was verified electronically.
[2017-08-16 20:27] LABS: AUTOMATED NEUTROPHIL # 2.4 TH/MM3 (1.8-7.7); BASOPHIL % 0.7 % (0.0-2.0); EOSINOPHIL # 0.1 TH/MM3 (0-0.4); EOSINOPHIL % 2.3 % (0.0-4.0); HEMATOCRIT 33.8 % (39.0-51.0); HEMO FLAGS DIFF FINAL; LYMPH % 11.9 % (9.0-44.0); LYMPHOCYTE # 0.4 TH/MM3 (1.0-4.8); MEAN CELL VOLUME 91.8 FL (80.0-100.0); MEAN CORPUSCULAR HEMOGLOBIN 30.2 PG (27.0-34.0); MEAN CORPUSCULAR HGB CONC 32.9 % (32.0-36.0); MONO % 11.2 % (0.0-8.0); NEUT % 73.9 % (16.0-70.0); PLATELET COUNT 148 TH/MM3 (150-450); RED BLOOD COUNT 3.68 MIL/MM3 (4.50-5.90); RED CELL DISTRIBUTION WIDTH 14.4 % (11.6-17.2); WHITE BLOOD COUNT 3.3 TH/MM3 (4.0-11.0)
[2017-08-16 20:57] LABS: ANION GAP 5 MEQ/L (5-15); AST (GOT) 22 U/L (15-37); BLOOD UREA NITROGEN 27 MG/DL (7-18); CHLORIDE 106 MEQ/L (98-107); GLOMERULAR FILTRATION RATE 61 ML/MIN (>89); MAGNESIUM 2.1 MG/DL (1.5-2.5); POTASSIUM 4.6 MEQ/L (3.5-5.1); SODIUM (NA) 141 MEQ/L (136-145)
[2017-08-16 20:59] LABS: ALT (GPT) 18 U/L (12-78)
[2017-08-16 21:00] VITALS: BP 171/74; PULSE 64; RESP 20; O2SAT 100
[2017-08-16 21:03] LABS: ALKALINE PHOSPHATASE 90 U/L (45-117); TOTAL BILIRUBIN ADULT 0.7 MG/DL (0.2-1.0)
--- NOTE | 2017-08-16 21:33 | EKG ---
Date Performed: 08/16/2017 Time Performed: 19:59:08 PTAGE: 86 years EKG: SINUS BRADYCARDIA RIGHT BUNDLE BRANCH BLOCK ABNORMAL ECG No significant change from prior e lectrocardiogram. PREVIOUS TRACING : 05/27/2017 03.59 DOCTOR: Gumaro Alfaro Interpretating Date/Time 08/16/2017 21:33:07
--- NOTE | 2017-08-16 21:40 | HHI.HP ---
[facility] Service Family Medicine Primary Care Physician Chris Doherty MD Admission Diagnosis Exacerbation of Myasthenia Gravis Diagnoses: International Travel<30 Days: No Contact w/Intl Traveler<30days: No Known Affected Area: No History of Present Illness Mr. Peters is a pleasant 86 yr old M with history Myasthenia gravis presents with MG flare symptoms. He reports that he started having trouble swallowing and talking throughout the weekend. On Tuesday, he went to go see his neurologist , Dr. Loyola, about his symptoms. Dr. Loyola suggested he be admitted to the hospital to receive plasmapheresis. He decided he didn't want to be admitted because he wanted to stay home for the holidays. His symptoms, however , continued to worsen. He was unable to eat dinner today due to trouble swallowing and was also having slurred speech. He talked with the air sampling and monitoring neurologist and came immediately to the hospital. His MG flares always consist of dysarthria and dysphagia. His most recent for MG flare was 07/01. He denies shortness of breath, focal weakness, fevers, chills, blurry vision. Oncologist: Dr. Garcia Neurologist: Dr. Loyola (Aisha Dc MD R1) Review of Systems Constitutional: DENIES: Fever, Weight loss, Chills Eyes: DENIES: Blurred vision Ears, nose, mouth, throat: COMPLAINS OF: Odynophagia Respiratory: DENIES: Shortness of breath Cardiovascular: DENIES: Chest pain Gastrointestinal: DENIES: Abdominal pain, Nausea, Vomiting Genitourinary: DENIES: Dysuria Musculoskeletal: DENIES: Joint pain Hematologic/lymphatic: DENIES: Lymphadenopathy Neurologic: DENIES: Headache Psychiatric: DENIES: Confusion (Aisha Dc MD R1) Past Family Social History Past Medical History Per EMR records: - hospitalized for urosepsis 2008 (secondary to BPH with obx symptoms now s/p TURP) - metastatic colon cancer - (initial partial colectomy 1987 with met to liver 2000 with subsequent surgical rsection), second primary colon cancer found 2007 and resected - colonic polyps - BPH - now s/p TURP - incisional hernia - hyperlipidemia - 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 The left frontal parietal subdural hematoma measured 10 mm in greatest width in the right posterior parietal subdural hematoma measured 6 mm in greatest width. These findings were stable on repeat CT during the hospitalization. A brain MRI showed atrophy with marked periventricular white matter changes. A brain MRA was negative. A magnetic resonance venogram was negative for venous thrombosis. - Fall (tripped over parking curb; sustained a right humeral neck fracture - Past Surgical History - partial colectomy 1987 and 2007 - partial liver resection 2000 - bilateral cataract extraction - TURP - retinal surgery L. eye - Right hernia repair Apr 2017 Reported Medications Reported Meds & Active Scripts Active Docusate Sodium 100 Mg Cap 100 Mg PO BID Xanax (Alprazolam) 0.25 Mg Tab 0.25 Mg PO DAILY PRN Reported Milk of Magnesia Liq (Magnesium Hydroxide) 400 Mg/5 Ml Susp 30 Ml PO DIRECTED PRN 30ml every 3rd day if no regular BM Vitamin B-12 (Cyanocobalamin) 1,000 Mcg Tab 1,000 Mcg PO DAILY Mestinon (Pyridostigmine [place]) 60 Mg Tab 120 Mg PO TID Ensure Plus (Nutritional Supplements) 1 Liq Liq 1 Can PO DAILY Cyanocobalamin Inj (Cyanocobalamin) 1,000 Mcg/Ml Inj 1,000 Mcg IM MONTHLY Vitamin D3 (Cholecalciferol) 2,000 Unit Cap 2,000 Units PO DAILY Tums (Calcium Carbonate (Antacid)) 500 Mg Chew 1,000 Mg CHEW BID PRN (Aisha Dc MD R1) Allergies: Coded Allergies: Sulfa (Sulfonamide Antibiotics) (Unverified Allergy, Severe, Flushing, ) lorazepam (Unverified Allergy, Intermediate, Psychosis, 08/16/17) prochlorperazine (Unverified Allergy, Unknown, JITTERY, 08/16/17) Family History Father: at 89 renal failure/astherosclerosis/dementia Mother: at 29 of uterine cancer Social History Marital Status: Living Situation: living in [facility] apartment Education: college classes 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 Cool and dry. HEAD: Atraumatic. Normocephalic. No temporal or scalp tenderness. EYES: Pinpoint pupils, EOMI ENT: Throat clear. airway patient with no increased secreations NECK: Trachea midline. No JVD or lymphadenopathy. Supple, nontender, no meningeal signs. CARDIOVASCULAR: Regular rate and rhythm without murmurs, gallops, or rubs. RESPIRATORY: Clear to auscultation. Breath sounds equal bilaterally. No wheezes , rales, or rhonchi. GASTROINTESTINAL: Abdomen soft, non-tender, nondistended. No hepato-splenomegaly , or palpable masses. No guarding. MUSCULOSKELETAL: Extremities without clubbing, cyanosis, or edema. No joint tenderness, effusion, or edema noted. No calf tenderness NEUROLOGICAL: Awake and alert. Oriented x 3. Mild slurred speech. Cranial nerves II through XII intact. Motor and sensory grossly within normal limits. Five out of 5 muscle strength in all muscle groups. Laboratory Laboratory Tests Test 08/16/17 20:10 White Blood Count 3.3 Red Blood Count 3.68 Hemoglobin 11.1 Hematocrit 33.8 Mean Corpuscular Volume 91.8 Mean Corpuscular Hemoglobin 30.2 Mean Corpuscular Hemoglobin Concent 32.9 Red Cell Distribution Width 14.4 Platelet Count 148 Mean Platelet Volume 8.2 Neutrophils (%) (Auto) 73.9 Lymphocytes (%) (Auto) 11.9 Monocytes (%) (Auto) 11.2 Eosinophils (%) (Auto) 2.3 Basophils (%) (Auto) 0.7 Neutrophils # (Auto) 2.4 Lymphocytes # (Auto) 0.4 Monocytes # (Auto) 0.4 Eosinophils # (Auto) 0.1 Basophils # (Auto) 0.0 CBC Comment DIFF FINAL Differential Comment Blood Urea Nitrogen 27 Creatinine 1.13 Random Glucose 105 Total Protein 6.9 Albumin 3.7 Calcium Level 9.0 Magnesium Level 2.1 Alkaline Phosphatase 90 Aspartate Amino Transf (AST/SGOT) 22 Alanine Aminotransferase (ALT/SGPT) 18 Total Bilirubin 0.7 Sodium Level 141 Potassium Level 4.6 Chloride Level 106 Carbon Dioxide Level 30.0 Anion Gap 5 Estimat Glomerular Filtration Rate 61 Troponin I LESS THAN 0.02 (Aisha Dc MD R1) Result Diagram: 08/16/17200908/16/172009 Caprini VTE Risk Assessment Caprini VTE Risk Assessment: Mod/High Risk (score >= 2) Caprini Risk Assessment Model Point Value = 1 Point Value = 2 Point Value = 3 Point Value = 5 Age 41-60 Minor surgery BMI > 25 kg/m2 Swollen legs Varicose veins or History of unexplained or recurrent spontaneous Oral contraceptives or hormone replacement Sepsis (< 1 month) Serious lung disease, including pneumonia (< 1 month) Abnormal pulmonary function Acute myocardial infarction Congestive heart failure (< 1 month) History of inflammatory bowel disease Medical patient at bed rest Age 61-74 Arthroscopic surgery Major open surgery (> 45 min) Laparoscopic surgery (> 45 min) Malignancy Confined to bed (> 72 hours) Immobilizing plaster cast Central venous access Age >= 75 History of VTE Family history of VTE Factor V Leiden Prothrombin [id number] Lupus anticoagulant Anticardiolipin antibodies Elevated serum homocysteine Heparin-induced thrombocytopenia Other congenital or acquired thrombophilia Stroke (< 1 month) Elective arthroplasty Hip, pelvis, or leg fracture Acute spinal cord injury (< 1 month) Prophylaxis Regimen Total Risk Factor Score Risk Level Prophylaxis Regimen 0-1 Low Early ambulation 2 Moderate Order ONE of the following: *Sequential Compression Device (SCD) *Heparin 5000 units SQ BID 3-4 Higher Order ONE of the following medications: *Heparin 5000 units SQ TID *Enoxaparin/Lovenox 40 mg SQ daily (WT < 150 kg, CrCl > 30 mL/min) *Enoxaparin/Lovenox 30 mg SQ daily (WT < 150 kg, CrCl > 10-29 mL/min) *Enoxaparin/Lovenox 30 mg SQ BID (WT < 150 kg, CrCl > 30 mL/min) AND/OR *Sequential Compression Device (SCD) 5 or more Highest Order ONE of the following medications: *Heparin 5000 units SQ TID (Preferred with Epidurals) *Enoxaparin/Lovenox 40 mg SQ daily (WT < 150 kg, CrCl > 30 mL/min) *Enoxaparin/Lovenox 30 mg SQ daily (WT < 150 kg, CrCl > 10-29 mL/min) *Enoxaparin/Lovenox 30 mg SQ BID (WT < 150 kg, CrCl > 30 mL/min) AND *Sequential Compression Device (SCD) (Aisha Dc MD R1) Assessment and Plan Assessment and Plan 86 year old male with myasthenia gravis presenting with acute exacerbation of myasthenia gravis. Neurology consulted, plan for plasmapheresis. Code Status Full Code Discussed Condition With Dr. Mcdonnell (Aisha Dc MD R1) Attending Attestation THIS CASE WAS DISCUSSED WITH THE RESIDENT PHYSICIANS. I HAVE REVIEWED THE RECORD AND AGREE WITH THE ABOVE NOTE AND PLAN OF CARE WAS DISCUSSED. I HAVE AUTHORIZED THE ORDER FOR ADMISSION TO AN IN-PATIENT STATUS. (Chris Doherty MD) Problem List: (1) Myasthenia gravis with acute exacerbation ICD Codes: G70.01 - Myasthenia gravis with acute exacerbation Status: Acute Plan: Neurology consulted, plan for plasmapheresis. Neurochecks q4h school lunch monitor/telemetry Continue home Mestinon 120mg PO TID if pt passes swallow eval (2) Dysarthria ICD Codes: R47.1 - Dysarthria and anarthria Status: Acute Plan: Currently NPO. Speech Therapy consulted for swallow eval. OT request for service. (3) Anxiety ICD Codes: F41.9 - Anxiety Status: Chronic Plan: Continue home Xanax 0.25 mg PO daily PRN (4) Nutrition, metabolism, and development symptoms ICD Codes: R63.8 - Other symptoms and signs concerning food and fluid intake Status: Acute Plan: Diet: NPO until swallow eval performed Fluids: 50mls/hr NS- pt appeared hydrated, will do half-maintence vitals q4h, monitor I & Os (Aisha Dc MD R1) Physician Certification 2 Midnight Certification Type: Admission for Inpatient Services Order for Inpatient Services The services are ordered in accordance with Medicare regulations or non- Medicare payer requirements, as applicable. In the case of services not specified as inpatient-only, they are appropriately provided as inpatient services in accordance with the 2-midnight benchmark. Estimated LOS (days): 2 2 days is the estimated time the patient will need to remain in the hospital, assuming treatment plan goals are met and no additional complications. Post-Hospital Plan: SNF (Aisha Dc MD R1) Aisha Dc MD R1 Aug 16, 2017 21:40 Chris Doherty MD Aug 17, 2017 09:28
[2017-08-16] MEDS ORDERED: NALOXONE HCL 0.4 MG/ML AMP IV PUSH PRN ×2 (21:45→22:00)
[2017-08-16 22:00] VITALS: BP 172/76; PULSE 66; RESP 24; O2SAT 10; O2SAT 100
[2017-08-16] MEDS ORDERED: SODIUM CHLORIDE 0.9% FLUSH 10 ML FLUSH IV FLUSH PRN (22:00)
[2017-08-16] MEDS ORDERED: BISACODYL 10 MG SUPP RECTAL PRN (22:00)
[2017-08-16] MEDS ORDERED: SENNOSIDES 8.6 MG TAB PO PRN (22:00)
[2017-08-16] MEDS ORDERED: MAGNESIUM HYDROXIDE SUSP 30 ML CUP PO PRN (22:00)
[2017-08-16] MEDS ORDERED: CALCIUM CARBONATE 500 MG CHEWABLE TAB CHEW PRN (22:00)
[2017-08-16] MEDS ORDERED: LACTULOSE SYRUP 20 GM/30 ML CUP PO PRN (22:00)
[2017-08-16 22:05] LABS: APTT (PATIENT) 25.4 SEC (24.3-30.1); INTERNATIONAL NORMALIZED RATIO 1.1 RATIO; PROTHROMBIN TIME - PATIENT 10.7 SEC (9.8-11.6)
[2017-08-16] MEDS: SODIUM CHLORIDE 0.9% FLUSH 10 ML FLUSH IV FLUSH SCH (22:40)
[2017-08-16] MEDS: SODIUM CHLOR 0.9% 1000 ML INJ 1,000 ML IV SCH (23:38)
[2017-08-17] VITALS (9 sets, daily range): BP systolic 121–157; BP diastolic 57–70; PULSE 52–88; RESP 18–20; TEMP 97.3–97.6; O2SAT 95–100
[2017-08-17] MEDS ORDERED: NUTRITIONAL SUPPLEMENTS PO SCH (09:00)
[2017-08-17] MEDS: PYRIDOSTIGMINE BROMIDE 60 MG TAB PO SCH ×3 (12:16→18:06)
[2017-08-17] MEDS: DOCUSATE SODIUM 100 MG CAP PO SCH ×2 (12:17→21:00)
[2017-08-17] MEDS: CHOLECALCIFEROL (VIT D3) 1000 UNIT TAB PO SCH (12:17)
[2017-08-17] MEDS: DOCUSATE SODIUM 50 MG/SENNA 8.6 MG TAB PO SCH ×2 (12:17→21:00)
[2017-08-17] MEDS: SODIUM CHLORIDE 0.9% FLUSH 10 ML FLUSH IV FLUSH SCH ×2 (12:17→21:00)
--- NOTE | 2017-08-17 16:31 | HHI.FPPN ---
Subjective Remarks FM Attending Note: Patient seen and examined. S: Chart and all resident physician notes reviewed. In summary this is a 86 year old male who was admitted with an admission diagnosis of Exacerbation Of Myasthenia Gravis. Mr. Peters has a h/o multiple exacerbations of his myasthenia gravis. He was in the hospital earlier this month for an acute exacerbation and then later in the month with a partial bowel obstruction which is also a recurrent problem. This current episode started over the weekend with intermittent slurring of his speech and then on the night of admission he started noting some difficulty swallowing. Speech therapy evaluated him a recommended a pureed diet which he is taking at this time without problem. He normally responds relatively well to plasmapheresis He was recently started on Cellsept but has had some difficulty tolerating this medication.. Objective Vitals Vital Signs Date Time Temp Pulse Resp B/P (MAP) Pulse Ox O2 Delivery O2 Flow Rate FiO2 08/17/17 16:03 73 08/17/17 15:59 97.5 55 19 140/67 (91) 100 08/17/17 12:14 97.3 52 19 157/65 (95) 98 08/17/17 08:02 88 08/17/17 08:02 97.3 56 18 152/69 (96) 98 08/17/17 04:02 53 08/17/17 04:00 97.4 62 18 132/61 (84) 97 08/17/17 00:45 97.4 59 20 121/57 (78) 95 08/17/17 00:43 08/16/17 22:00 66 24 172/76 (108) 100 Room Air 08/16/17 21:00 64 20 171/74 (106) 100 Room Air 08/16/17 20:00 58 20 153/70 (97) 100 Room Air 08/16/17 18:35 98.2 67 16 142/63 (89) 97 Room Air I/O 08/16/17 08/16/17 08/16/17 08/17/17 08/17/17 08/17/17 07:00 15:00 23:00 07:00 15:00 23:00 Intake Total 351 ml Output Total 300 ml Balance 51 ml Intake IV Total 351 ml Output Urine Total 300 ml Result Diagram: 08/16/17200908/16/172009 Other Results Item Value Date Time Magnesium Level 2.1 MG/DL 08/16/172009 Total Bilirubin 0.7 MG/DL 08/16/172009 Aspartate Amino Transf (AST/SGOT) 22 U/L 08/16/172009 Alanine Aminotransferase (ALT/SGPT) 18 U/L 08/16/172009 Troponin I LESS THAN 0.02 NG/ML L 08/16/172009 Total Protein 6.9 GM/DL 08/16/172009 Albumin 3.7 GM/DL 08/16/172009 Alkaline Phosphatase 90 U/L 08/16/172009 Imaging Last 48 hours Impressions Chest X-Ray 08/16/171919 Signed Impressions: Service Date/Time: Wednesday, August 16, 2017 19:52 - CONCLUSION: Probable small right pleural effusion. Agustin Paez MD Objective Remarks O. CONSTITUTIONAL/GEN: normally nourished, in NAD. EYES: conjunctiva normal, PERRLA, EOMI. ENT: Mouth and pharynx normal. Hearing aides both ears. Rhinophyma. NECK: thyroid midline, carotids symmetrical. LUNGS: clear A-P, respiratory effort is normal. CARDIOVASCULAR: RR with 1-2/6 late systolic murmur at apex. Few large varicosities are present in legs. GI/ABD: Multiple healed surgical scars. Moderately large R. ventral hernia. BS present and normal. No tenderness to direct palpation. The abdomen is soft and nontender. NEURO: speech is normal today, CN II-XII intact. No ocular weakness or ptosis apparent. SKIN: color normal, no rashes noted. HEME/LYMPH: no bruising, petechia or significant adenopathy MUSC: back is normal in appearance. Extremities normal in appearance. PSYCH/MENTAL STATUS: Alert and oriented x 3. Chronic anxiety. A/P Assessment and Plan 86 year old male with myasthenia gravis presenting with acute exacerbation of myasthenia gravis. Neurology consulted, plan for plasmapheresis. Problem List: (1) Myasthenia gravis with acute exacerbation ICD Codes: G70.01 - Myasthenia gravis with acute exacerbation Status: Acute Plan: Neurology consulted, plan for plasmapheresis. Neurochecks q4h air sampling and monitoring/telemetry Continue home Mestinon 120mg PO TID if pt passes swallow eval 08/17/17 Stable at this time. Neurology has spoken to him about starting plasmaphoresis to be continued as an outpatient. Also will retry a lower dose of Cellsetp. (2) Dysarthria ICD Codes: R47.1 - Dysarthria and anarthria Status: Acute Plan: Currently NPO. Speech Therapy consulted for swallow eval. OT request for service. (3) Anxiety ICD Codes: F41.9 - Anxiety Status: Chronic Plan: Continue home Xanax 0.25 mg PO daily PRN (4) Nutrition, metabolism, and development symptoms ICD Codes: R63.8 - Other symptoms and signs concerning food and fluid intake Status: Acute Plan: Diet: NPO until swallow eval performed Fluids: 50mls/hr NS- pt appeared hydrated, will do half-maintence vitals q4h, monitor I & Os Chris Doherty MD Aug 17, 2017 16:31
[2017-08-17] MEDS: SODIUM CHLOR 0.9% 1000 ML INJ 1,000 ML IV SCH (18:05)
[2017-08-17] MEDS: ALPRAZolam 0.25 MG TAB PO PRN (22:14)
[2017-08-18] VITALS (9 sets, daily range): BP systolic 131–178; BP diastolic 60–77; PULSE 51–78; RESP 16–18; TEMP 97.2–98.9; O2SAT 95–98
[2017-08-18 06:27] LABS: AUTOMATED NEUTROPHIL # 1.2 TH/MM3 (1.8-7.7); EOSINOPHIL # 0.1 TH/MM3 (0-0.4); EOSINOPHIL % 4.3 % (0.0-4.0); HEMATOCRIT 31.9 % (39.0-51.0); LYMPH % 15.6 % (9.0-44.0); LYMPHOCYTE # 0.3 TH/MM3 (1.0-4.8); MEAN CELL VOLUME 91.3 FL (80.0-100.0); MEAN CORPUSCULAR HEMOGLOBIN 30.2 PG (27.0-34.0); NEUT % 65.1 % (16.0-70.0); PLATELET COUNT 102 TH/MM3 (150-450); RED CELL DISTRIBUTION WIDTH 14.3 % (11.6-17.2); WHITE BLOOD COUNT 1.9 TH/MM3 (4.0-11.0)
[2017-08-18 06:38] LABS: HEMO FLAGS AUTO DIFF
[2017-08-18 06:40] LABS: BICARBONATE 26.8 MEQ/L (21.0-32.0); POTASSIUM 3.8 MEQ/L (3.5-5.1)
[2017-08-18] MEDS: MYCOPHENOLATE MOFETIL 250 MG CAP PO SCH (06:44)
[2017-08-18 07:37] LABS: BASOPHILS 1 % (0-2); EOSINOPHILS 3 % (0-4); NEUTROPHIL # MANUAL DIFF 1.3 TH/MM3 (1.8-7.7); PLATELET ESTIMATE SMEAR LOW (NORMAL); PLATELET MORPHOLOGY NORMAL (NORMAL); POLYS (SEG NEUTROPHILS) 66 % (16-70); SCAN/DIFF FINAL DIFF MANUAL; WBC DIFF SAMPLE 100
[2017-08-18] MEDS: CHOLECALCIFEROL (VIT D3) 1000 UNIT TAB PO SCH ×2 (08:07→08:31)
[2017-08-18] MEDS: PYRIDOSTIGMINE BROMIDE 60 MG TAB PO SCH ×3 (08:07→17:19)
[2017-08-18] MEDS: SODIUM CHLORIDE 0.9% FLUSH 10 ML FLUSH IV FLUSH SCH ×2 (08:09→20:49)
[2017-08-18] MEDS: DOCUSATE SODIUM 50 MG/SENNA 8.6 MG TAB PO SCH ×2 (08:09→20:48)
[2017-08-18] MEDS: DOCUSATE SODIUM 100 MG CAP PO SCH ×2 (08:09→20:49)
--- NOTE | 2017-08-18 09:12 | MB ---
cc: BRYSON,RAID DATE OF CONSULTATION 08/17/2017 REASON FOR CONSULTATION Myasthenia gravis exacerbation. HISTORY OF PRESENT ILLNESS Mr. Peters is an 86-year-old male with a past medical history of myasthenia gravis who follows up with Dr. Loyola. He went to see his neurologist, Dr. Loyola, who recommended that he go to the ER; however, he declined this and then later he felt that there was an increasing difficulty in swallowing that has been ongoing for a few days. Denies double vision, blurred vision, speech difficulty or worsening speech or weakness of extremities. The patient is on Mestinon 120 mg three times daily and has been prescribed CellCept but has not started the prescription yet, currently off the prednisone because it made his symptoms become worse and Imuran has been discontinued recently. He has had a flare-up at the end of May/beginning of June status post his hiatus hernia surgery. Denies shortness of breath, chest discomfort. REVIEW OF SYSTEMS A 12-point review of systems is negative except for what is mentioned in the medical records. PAST MEDICAL HISTORY 1. Myasthenia gravis. 2. Metastatic colon cancer. 3. BPH. 4. Hernia. 5. Hyperlipidemia. 6. Small bowel obstruction. 7. Myasthenia gravis exacerbation and has received numerous plasmaphereses. PAST SURGICAL HISTORY 1. Partial colectomy. 2. Partial liver resection. 3. Bilateral cataract extraction. 4. TURP. 5. Retinal surgery of left eye. 6. Right hernia repair in April 2017. MEDICATIONS 1. Docusate. 2. Xanax. 3. B12. 4. Mestinon 120 mg three times daily. 5. Vitamin B12. 6. vitamin D3. ALLERGIES SULFA. LORAZEPAM. PROCHLORPERAZINE. FAMILY HISTORY Father at 89 with renal failure and dementia. Mother at 29 of cancer. SOCIAL HISTORY Denies tobacco, alcohol or illicit drug abuse. PHYSICAL EXAMINATION GENERAL: Awake, alert, good historian, not in acute distress. HEENT: Atraumatic, normocephalic. Intact hearing. Intact vision. NECK: Supple. No signs of meningeal irritation. CARDIOVASCULAR: Regular rate and rhythm. RESPIRATORY: Clear to auscultation. No wheezes. MUSCULOSKELETAL: Without clubbing, cyanosis or edema. Moves all extremities. NEUROLOGIC: Awake, alert, oriented to time, person and place. No dysphasia. There is marked dysarthria/chronic bilateral ptosis. No diplopia, no nystagmus. Bilateral mild facial weakness. Intact facial sensation. Normal neck flexors and extensors. Normal jaw opening. Motor system examination - 5/ 5 bilateral and symmetrical. Normal proximal muscle strength. Intact sensation throughout. Intact cerebellar functions. Reflexes 2+ bilateral, symmetrical. Plantars are bilaterally downgoing. PSYCHOLOGIC: Cooeraive, no hallucinations, normal mood and behavior LABORATORY DATA White blood cells 3.3, hemoglobin 11.1, platelet count 148. BUN 27, creatinine 1.13, calcium 9, LFTs normal. Sodium 141. DIAGNOSTIC IMPRESSION Acute exacerbation of myasthenia gravis. PLAN 1. Neuro checks q.4 hours. 2. Initiate plasma exchange. 3. Consult oncology for placements of an access. 4. Start alternate day courses for five courses, first course can be given in the hospital, then follow-up courses can be done as an outpatient. 5. Consult Case Management to arrange outpatient plasma exchange. 6. DVT prophylaxis. 7. GI prophylaxis. 8. Mestinon 120 mg three times daily. 9. CellCept 250 mg once daily. 10. Periodic check of vital capacity and NIF twice daily. 11. DVT prophylaxis. 12. GI prophylaxis. Discussed the plan of care with the patient and registered nurse. Thank you for the opportunity to participate in the care of your patient. MD JESUS Garvin/MAYTE /10:10 PM /8:42 AM IBAN
--- NOTE | 2017-08-18 09:48 | HHI.PR ---
Review/Management Diagnosis Acute exacerbation of myasthenia gravis. Plan 1. Neuro checks q.4 hours. 2. Plasma exchange, for 5 treatments. 3. Consult oncology for placements of venous access. 4. Start alternate day treatments for 5 times, first two treatments can be given in the hospital, then follow-up courses can be done as an outpatient. 5. Consult Case Management to arrange outpatient plasma exchange. 6. DVT prophylaxis. 7. GI prophylaxis. 8. Mestinon 120 mg three times daily. 9. CellCept 250 mg once daily. 10. Periodic check of vital capacity and NIF twice daily. 11. DVT prophylaxis. 12. GI prophylaxis. Diagnosis/Plan: Subjective Subjective Comments Patient lays in bed No new complaints PLEX has not been started yet A consult to oncology was placed today Active Medications Current Medications Medications (Trade) Dose Ordered Sig/Brock Route Start Time Stop Time Status Last Admin (Xanax) 0.25 mg DAILY PRN PO 08/16/17 22:00 08/17/17 22:14 (Tums Chew) 1,000 mg BID PRN CHEW 08/16/17 22:00 (Vitamin D3) 2,000 units DAILY PO 08/17/17 09:00 08/17/17 12:17 (Colace) 100 mg BID PO 08/17/17 09:00 08/17/17 12:17 (Mestinon) 120 mg TID PO 08/17/17 09:00 08/18/17 08:07 (NS Flush) 2 ml UNSCH PRN IV FLUSH 08/16/17 22:00 (NS Flush) 2 ml BID IV FLUSH 08/16/17 22:00 08/18/17 08:09 (Narcan Inj) 0.4 mg UNSCH PRN IV PUSH 08/16/17 22:00 (Ramona-Colace) 1 tab BID PO 08/17/17 09:00 08/17/17 12:17 (Milk Of Magnesia Liq) 30 ml Q12H PRN PO 08/16/17 22:00 (Senokot) 17.2 mg Q12H PRN PO 08/16/17 22:00 (Dulcolax Supp) 10 mg DAILY PRN RECTAL 08/16/17 22:00 (Lactulose Liq) 30 ml DAILY PRN PO 08/16/17 22:00 Sodium Chloride 1,000 ml @ 50 mls/hr Q20H IV 08/16/17 23:00 08/17/17 18:05 (Cellcept) 250 mg DAILY@06 PO 08/18/17 06:00 08/18/17 06:44 Allergies Allergies Coded Allergies Sulfa (Sulfonamide Antibiotics) (Unverified Allergy, Severe, Flushing, ) lorazepam (Unverified Allergy, Intermediate, Psychosis, 08/16/17) prochlorperazine (Unverified Allergy, Unknown, JITTERY, 08/16/17) Review of Systems All other ROS: ROS reviewed as documented in chart Exam I&O / VS Vital Signs Date Time Temp Pulse Resp B/P (MAP) Pulse Ox O2 Delivery O2 Flow Rate FiO2 08/18/17 04:00 98.9 57 18 131/66 (87) 97 08/18/17 04:00 51 08/18/17 00:00 58 08/18/17 00:00 98.5 58 18 133/60 (84) 95 08/17/17 20:00 72 08/17/17 20:00 97.6 52 18 153/70 (97) 99 08/17/17 16:03 54 08/17/17 15:59 97.5 55 19 140/67 (91) 100 08/17/17 12:14 97.3 52 19 157/65 (95) 98 Exam Comments GENERAL: Awake, alert, good historian, not in acute distress. HEENT: Atraumatic, normocephalic. Intact hearing. Intact vision. NECK: Supple. No signs of meningeal irritation. CARDIOVASCULAR: Regular rate and rhythm. RESPIRATORY: Clear to auscultation. No wheezes. MUSCULOSKELETAL: Without clubbing, cyanosis or edema. Moves all extremities. NEUROLOGIC: Awake, alert, oriented to time, person and place. No dysphasia. There is marked dysarthria/chronic bilateral ptosis. No diplopia, no nystagmus. Bilateral mild facial weakness. Intact facial sensation. Normal neck flexors and extensors. Normal jaw opening. Motor system examination - 5/ 5 bilateral and symmetrical. Normal proximal muscle strength. Intact sensation throughout. Intact cerebellar functions. Reflexes 2+ bilateral, symmetrical. Plantars are bilaterally downgoing. Objective Radiology Results Last 72 hours Impressions Catheter Placement X-Ray 08/18/17 1110 Signed Impressions: Service Date/Time: July 14:24 - CONCLUSION: Uncomplicated line placement as above. Michael Gusman MD Micro and Labs Laboratory Tests Test 08/18/17 05:32 White Blood Count 1.9 Red Blood Count 3.50 Hemoglobin 10.5 Hematocrit 31.9 Mean Corpuscular Volume 91.3 Mean Corpuscular Hemoglobin 30.2 Mean Corpuscular Hemoglobin Concent 33.0 Red Cell Distribution Width 14.3 Platelet Count 102 Mean Platelet Volume 8.1 Neutrophils (%) (Auto) 65.1 Lymphocytes (%) (Auto) 15.6 Monocytes (%) (Auto) 14.0 Eosinophils (%) (Auto) 4.3 Basophils (%) (Auto) 1.0 Neutrophils # (Auto) 1.2 Lymphocytes # (Auto) 0.3 Monocytes # (Auto) 0.3 Eosinophils # (Auto) 0.1 Basophils # (Auto) 0.0 CBC Comment AUTO DIFF Differential Total Cells Counted 100 Neutrophils % (Manual) 66 Lymphocytes % 16 Monocytes % 14 Eosinophils % 3 Basophils % 1 Neutrophils # (Manual) 1.3 Differential Comment FINAL DIFF MANUAL Platelet Estimate LOW Platelet Morphology Comment NORMAL Red Cell Morphology Comment NORMAL Blood Urea Nitrogen 20 Creatinine 0.79 Random Glucose 86 Calcium Level 8.7 Sodium Level 141 Potassium Level 3.8 Chloride Level 109 Carbon Dioxide Level 26.8 Anion Gap 5 Estimat Glomerular Filtration Rate 93 Reddy Dexter MD Aug 18, 2017 09:48
[2017-08-18] MEDS ORDERED: ONDANSETRON HCL 4 MG/2 ML VIAL IV PUSH PRN (11:15)
--- NOTE | 2017-08-18 14:10 | PD.RAD ---
Post Procedure Progress Note Pre Procedure Diagnosis: (1) Myasthenia gravis with acute exacerbation Post Procedure Diagnosis: (1) Myasthenia gravis with acute exacerbation Procedure Date: Aug 18, 2017 Supervising Radiologist: Michael Gusman Proceduralist/Assist: Markos Traylor RT(R), Ruthie Ledezma RT(R) Anesthesia: Local Plan of Activity Patient to Unit: Nursing Unit See PACS Report for procedural detail/treatment Central Venous Access Device Procedure 1 Right Internal Jugular Central Line Placement dual lumen [place]: 15 PICC Line Length (cm): 19 Michael Gusman MD Aug 18, 2017 14:10
[2017-08-18] MEDS ORDERED: HEPARIN SODIUM - IV 2,000 UNITS/2 ML VIAL IV FLUSH PRN (14:15)
[2017-08-18] MEDS ORDERED: SODIUM CHLORIDE 0.9% FLUSH 10 ML FLUSH IV FLUSH PRN (14:15)
[2017-08-18] MEDS: SODIUM CHLOR 0.9% 1000 ML INJ 1,000 ML IV SCH (15:51)
--- NOTE | 2017-08-18 17:08 | HHI.FPPN ---
Subjective Remarks Mr. Peters was afebrile with HTN (SBP to 170's) overnight. BM and urination adequate per review of I/O. Patient reports that he is not talking normally and is also having difficulty eating. Patient slept well overall last night. (Bran Brooke MD, R3) Objective Vitals Vital Signs Date Time Temp Pulse Resp B/P (MAP) Pulse Ox O2 Delivery O2 Flow Rate FiO2 08/18/17 12:00 78 08/18/17 12:00 98.0 58 18 178/77 (110) 97 08/18/17 08:08 140/68 (92) 08/18/17 08:08 71 08/18/17 08:00 97.7 62 16 166/72 (103) 96 08/18/17 08:00 Room Air 08/18/17 04:00 98.9 57 18 131/66 (87) 97 08/18/17 04:00 51 08/18/17 00:00 58 08/18/17 00:00 98.5 58 18 133/60 (84) 95 08/17/17 20:00 72 08/17/17 20:00 97.6 52 18 153/70 (97) 99 I/O 08/17/17 08/17/17 08/17/17 08/18/17 08/18/17 08/18/17 07:00 15:00 23:00 07:00 15:00 23:00 Intake Total 351 ml 600 ml 622 ml Output Total 300 ml 800 ml Balance 51 ml -200 ml 622 ml Intake Oral 0 ml IV Total 351 ml 600 ml 622 ml Output Urine Total 300 ml 800 ml # Voids 4 # Bowel Movements 1 (Bran Brooke MD, R3) Result Diagram: 08/18/17 0532 08/18/17 0532 Imaging Last Impressions Chest X-Ray 08/16/171919 Signed Impressions: Service Date/Time: Wednesday, August 16, 2017 19:52 - CONCLUSION: Probable small right pleural effusion. Agustin Paez MD Objective Remarks O. CONSTITUTIONAL/GEN: normally nourished, in NAD. EYES: EOM grossly I Respiratory: clear A-P, respiratory effort is normal. CARDIOVASCULAR: RR with 1-2/6 late systolic murmur. Grossly normal perfusion GI/ABD: BS present and normal; abdomen soft/nontender. NEURO: Speech slightly difficult to understand. CN II-XII intact. No ocular weakness or ptosis apparent. SKIN: color normal, no rashes noted. HEME/LYMPH: no bruising, petechia or significant adenopathy MUSC: back is normal in appearance. Extremities normal in appearance. PSYCH/MENTAL STATUS: Alert and oriented x 3. Chronic anxiety. (Bran Brooke MD, R3) A/P Assessment and Plan 86 year old male with myasthenia gravis presenting with acute exacerbation of myasthenia gravis. Neurology consulted, plan for plasmapheresis. (Bran Brooke MD, R3) Attending Attestation Patient seen and examined. Case reviewed and discussed with the resident team. Agree with plan of care as discussed with me and documented in the resident note. (Chris Doherty MD) Problem List: (1) Myasthenia gravis with acute exacerbation ICD Codes: G70.01 - Myasthenia gravis with acute exacerbation Status: Acute Plan: Neurology consulted, plan for plasmapheresis. -Vascular catheter placed 08/18 Neurochecks q4h system planning engineer/telemetry Continue home Mestinon 120mg PO TID if pt passes swallow eval 08/18/17 Stable at this time. Plasmapheresis plan (inpatient vs outpatient) still being formed (2) Dysarthria ICD Codes: R47.1 - Dysarthria and anarthria Status: Acute Plan: Speech therapy consulted: Pureed diet, nectar consistency thickened liquids OT consulted: Home with no OT recommended (3) Anxiety ICD Codes: F41.9 - Anxiety Status: Chronic Plan: Continue home Xanax 0.25 mg PO daily PRN (4) HTN (hypertension) ICD Codes: I10 - Essential (primary) hypertension Plan: IMpression: SBP to 170's during hospitalization -Will add hydralazine PRN as HR in 50's-60's (5) Nutrition, metabolism, and development symptoms ICD Codes: R63.8 - Other symptoms and signs concerning food and fluid intake Status: Acute Plan: Diet: Pureed diet, nectar thickened liquids Fluids: 50mls/hr NS vitals q4h, monitor I & Os (Bran Brooke MD, R3) Problem Qualifiers (1) HTN (hypertension): Qualified Codes: I10 - Essential (primary) hypertension Bran Brooke MD, R3 Aug 18, 2017 17:08 Chris Doherty MD Aug 18, 2017 19:47
[2017-08-18] MEDS ORDERED: hydrALAZINE HCL 10 MG TAB PO PRN (18:00)
[2017-08-18] MEDS: ALPRAZolam 0.25 MG TAB PO PRN (23:47)
[2017-08-19] VITALS (9 sets, daily range): BP systolic 104–166; BP diastolic 62–71; PULSE 53–112; RESP 12–20; TEMP 97.1–98; O2SAT 94–99
[2017-08-19] MEDS: MYCOPHENOLATE MOFETIL 250 MG CAP PO SCH (06:45)
[2017-08-19 08:20] LABS: AUTOMATED NEUTROPHIL # 1.6 TH/MM3 (1.8-7.7); EOSINOPHIL # 0.1 TH/MM3 (0-0.4); HEMO FLAGS DIFF FINAL; LYMPH % 13.7 % (9.0-44.0); LYMPHOCYTE # 0.3 TH/MM3 (1.0-4.8); MEAN CELL VOLUME 91.7 FL (80.0-100.0); MEAN CORPUSCULAR HEMOGLOBIN 30.1 PG (27.0-34.0); MEAN CORPUSCULAR HGB CONC 32.9 % (32.0-36.0); MONO % 12.9 % (0.0-8.0); NEUT % 68.4 % (16.0-70.0); PLATELET COUNT 117 TH/MM3 (150-450); RED BLOOD COUNT 3.71 MIL/MM3 (4.50-5.90); RED CELL DISTRIBUTION WIDTH 14.4 % (11.6-17.2); WHITE BLOOD COUNT 2.4 TH/MM3 (4.0-11.0)
[2017-08-19] MEDS: PYRIDOSTIGMINE BROMIDE 60 MG TAB PO SCH ×3 (08:21→20:45)
[2017-08-19] MEDS: DOCUSATE SODIUM 50 MG/SENNA 8.6 MG TAB PO SCH ×2 (08:24→20:46)
[2017-08-19 08:25] LABS: APTT (PATIENT) 25.2 SEC (24.3-30.1); INTERNATIONAL NORMALIZED RATIO 1.1 RATIO; PROTHROMBIN TIME - PATIENT 11.4 SEC (9.8-11.6)
[2017-08-19] MEDS: DOCUSATE SODIUM 100 MG CAP PO SCH ×2 (08:25→20:45)
--- NOTE | 2017-08-19 08:25 | MB ---
cc: REBECCA BAEZ MD,[place] M.D. DATE OF CONSULTATION 08/18/2017 DATE OF 1930 Consult requested by the neurology service. REASON FOR CONSULTATION Myasthenia exacerbation; hematology service has been asked to see him to coordinate therapeutic plasma exchange treatments. CHIEF COMPLAINT The patient reports progressive weakness and difficulty swallowing solids. He also reports having changes in his voice. HISTORY OF PRESENT ILLNESS Mr. Peters is an 86-year-old male who is well-known to my associate, Dr. Garcia, since 2000. Mr. Peters was initially treated by Dr. Garcia for colon carcinoma which is currently in remission and then later for prostate carcinoma which was treated with external beam radiation therapy and he is now on intermittent androgen deprivation with Lupron. In 2013 the patient was diagnosed with myasthenia gravis. He has been on treatment with Mestinon at a dose of 120 mg three times a day and has recently been initiated on CellCept but this has not been started yet. Corticosteroids have been used on and off for management of his exacerbations. Over the past three days the patient developed increasing weakness, fatigue, difficulty swallowing solids and changes in his voice. He reported the symptoms to Dr. Loyola of neurology who recommended inpatient plasma exchange treatment before his condition worsened. The hematology service has been consulted to make these arrangements. Earlier today the patient underwent a right IJ Vas-Cath placement. PAST MEDICAL HISTORY 1. Myasthenia gravis with acute exacerbation. 2. History of colon carcinoma in remission. 3. Hypertension. 4. Hyperlipidemia. 5. Prostate carcinoma. PAST SURGICAL HISTORY 1. Status post partial colectomy. 2. Status post partial liver resection for removal of metastatic disease. 3. Cataract surgery. 4. Prostate biopsies. 5. Retinal surgery. 6. Multiple Vas-Cath placements. MEDICATIONS Current inpatient medications: 1. Normal saline at 50 cc an hour. 2. Alprazolam 0.25 mg daily as needed for anxiety. 3. Calcium carbonate 1000 mg p.o. b.i.d. 4. Vitamin-D3 2000 units p.o. daily. 5. Senna/Colace, one tablet p.o. b.i.d. 6. Hydralazine 10 mg p.o. q.8h. 7. Lactulose 30 mL p.o. daily. 8. Mycophenolate 250 mg p.o. daily. 9. Naloxone 0.4 mg IV as needed for oversedation. 10.Zofran 4 mg IV q.8h. needed for nausea. 11.Mestinon 120 mg p.o. t.i.d. FAMILY HISTORY Noncontributory. SOCIAL HISTORY The patient lives at home with his . He is a nonsmoker. He is retired. ALLERGIES 1. SULFA DRUGS. 2. PROCHLORPERAZINE. REVIEW OF SYSTEMS A 13-point review of systems was obtained and the following are the pertinent positives and negatives: CONSTITUTIONAL: The patient reports fatigue. He denies fevers, chills or night sweats. He denies unintended weight loss. HEENT: Denies headaches. Denies blurry vision. He reports difficulty swallowing. He denies soreness in the throat. RESPIRATORY: He denies difficulty breathing with exertion, denies pleuritic chest pain, cough or hemoptysis. CARDIOVASCULAR: Denies angina-like chest pain, PND, orthopnea. GI: Denies nausea, vomiting, diarrhea, hematochezia, melena. : No complaints of dysuria, hematuria or urine incontinence. CHEMICAL DEPENDENCY THERAPIST: Reports myasthenia exacerbation. He reports generalized motor weakness. Reports difficulty swallowing solids. Denies blurry vision. Reports changes in the nature of his voice. PHYSICAL EXAMINATION VITAL SIGNS: Temperature 98 degrees Fahrenheit, heart rate 78 beats per minute, blood pressure 178/77. O2 sat is 97% on room air. GENERAL APPEARANCE: Mr. Peters is an elderly and frail-appearing man. He is sitting up in bed. He appears in no acute distress and has a pleasant disposition. HEENT: Head is atraumatic, normocephalic. Conjunctivae are mildly pale. Sclerae are anicteric. EOMI. PERRLA. Oral exam no pharyngeal erythema. NECK: No palpable cervical or supraclavicular lymphadenopathy. PULMONARY: Good air movement bilaterally. No added breath sounds. CARDIOVASCULAR: Regular rate rhythm, S1, S2. No obvious murmurs, rubs or gallops. ABDOMEN: Thin belly, soft, nontender, nondistended. No palpable organ enlargement. EXTREMITIES: No pretibial edema or calf tenderness. NEUROLOGIC: Patient with muffled voice. 4/5 strength in the upper and lower extremities. Adequate muscle mass, tone and strength. LABORATORY FINDINGS Blood work dated 08/18/2017: WBC count 1.9, hemoglobin 10.5 gm/dl, hematocrit 32%, platelet count 102, absolute neutrophil count 1.2. Chemistries: Sodium 141, potassium 3.8, chloride 109, bicarb 26.8, BUN 20, creatinine 0.79, EGFR 93 mL/minute, glucose 86, calcium 8.7, total bilirubin 0.7, AST 22, ALT 18, alkaline phosphatase 90, albumin 3.7. CEA level is 1.7. PSA level is 2.37. ASSESSMENT Mr. Peters is a pleasant 86-year-old male with multiple medical co-morbid conditions. He was admitted to the hospital with myasthenia gravis exacerbation. The symptoms developed several days ago and he developed progressive fatigue, difficulty swallowing solids and changes in character of his voice. He reported the symptoms to his primary neurologist, Dr. Loyola, who recommended hospitalization for inpatient plasma exchange therapy. The patient has been on chronic Mestinon therapy and also receives corticosteroids on and off. Most recently he was advised initiation of CellCept but this has yet to start as an outpatient. He is presently on it as an inpatient. The hematology service has been asked to see him to coordinate inpatient plasma exchange treatments. From an oncologic standpoint, Mr. Peters has a previous history of colon carcinoma which is currently in remission. He was treated by Dr. Garcia for this. The patient also has a history of prostate carcinoma which was treated with external beam radiation therapy. 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 His oncologic issues are presently not the active issues. RECOMMENDATIONS Myasthenia gravis exacerbation: The patient has been advised plasma exchange treatments every other day for a total of 5 treatments. He does have a vascular access device which was placed earlier today. Mr. Peters would like to be discharged home before [facility]. Because today is already the and he will not be able to start plasma exchange until 08/19/2017, I will change the treatment schedule from every other day to daily for 2 treatments on 08/19 and 08/20/2017. Additionally, Mr. Peters reports he had difficulty tolerating albumin as the exchange fluid and tells me he had recently been receiving pure plasma as the exchange fluid. I will therefore put him on plasma exchange with fresh frozen plasma as a replacement fluid. Orders have been placed and faxed to the inpatient dialysis unit. MD BYRON Myers/SONIA /6:21 PM /7:50 AM
[2017-08-19] MEDS: SODIUM CHLORIDE 0.9% FLUSH 10 ML FLUSH IV FLUSH SCH ×2 (08:26→20:46)
[2017-08-19 08:44] LABS: POTASSIUM 3.6 MEQ/L (3.5-5.1)
[2017-08-19 08:45] LABS: BICARBONATE 29.1 MEQ/L (21.0-32.0)
[2017-08-19] MEDS: CHOLECALCIFEROL (VIT D3) 1000 UNIT TAB PO SCH (09:00)
[2017-08-19] MEDS: SODIUM CHLOR 0.9% 1000 ML INJ 1,000 ML IV SCH (11:48)
[2017-08-19] MEDS ORDERED: CALCIUM CARBONATE 500 MG CHEWABLE TAB CHEW PRN (12:00)
--- NOTE | 2017-08-19 12:02 | PD.ONC.PN ---
Subjective Subjective Remarks Afebrile overnight. Patient frustrated that he can't eat due to his aspiration risk. Continuing to have difficulty swallowing. Objective Data Date Time Temp Pulse Resp B/P (MAP) Pulse Ox O2 Delivery O2 Flow Rate FiO2 08/19/17 08:00 98.0 67 17 146/70 (95) 99 08/19/17 08:00 97.6 67 17 146/70 (95) 94 08/19/17 05:38 97.9 57 20 144/62 (89) 94 08/19/17 03:41 53 08/19/17 00:46 97.8 59 19 166/71 (102) 97 08/18/17 23:43 61 08/18/17 19:44 Room Air 08/18/17 19:44 97.6 59 16 155/72 (99) 98 08/18/17 19:43 59 08/18/17 16:00 97.2 58 18 162/71 (101) 97 08/18/17 12:00 78 08/18/17 12:00 98.0 58 18 178/77 (110) 97 08/19/17 08/19/17 08/19/17 07:00 15:00 23:00 Intake Total 1039 ml Output Total 100 ml Balance 939 ml Result Diagram: 08/19/1771808/19/17718 Laboratory Results Laboratory Tests Test 08/19/17 06:00 08/19/17 07:19 Prothrombin Time 11.4 SEC Prothromb Time International Ratio 1.1 RATIO Fibrinogen 261 mg/dL White Blood Count 2.4 TH/MM3 Red Blood Count 3.71 MIL/MM3 Hemoglobin 11.2 GM/DL Hematocrit 34.0 % Mean Corpuscular Volume 91.7 FL Mean Corpuscular Hemoglobin 30.1 PG Mean Corpuscular Hemoglobin Concent 32.9 % Red Cell Distribution Width 14.4 % Platelet Count 117 TH/MM3 Mean Platelet Volume 8.3 FL Neutrophils (%) (Auto) 68.4 % Lymphocytes (%) (Auto) 13.7 % Monocytes (%) (Auto) 12.9 % Eosinophils (%) (Auto) 4.0 % Basophils (%) (Auto) 1.0 % Neutrophils # (Auto) 1.6 TH/MM3 Lymphocytes # (Auto) 0.3 TH/MM3 Monocytes # (Auto) 0.3 TH/MM3 Eosinophils # (Auto) 0.1 TH/MM3 Basophils # (Auto) 0.0 TH/MM3 CBC Comment DIFF FINAL Differential Comment Blood Urea Nitrogen 18 MG/DL Creatinine 0.97 MG/DL Random Glucose 98 MG/DL Calcium Level 8.6 MG/DL Sodium Level 142 MEQ/L Potassium Level 3.6 MEQ/L Chloride Level 108 MEQ/L Carbon Dioxide Level 29.1 MEQ/L Anion Gap 5 MEQ/L Estimat Glomerular Filtration Rate 73 ML/MIN Administered Medications Medications (Trade) Dose Ordered Sig/Brock Route PRN Reason Start Time Stop Time Status Last Admin Dose Admin Alprazolam (Xanax) 0.25 mg DAILY PRN PO ANXIETY 08/16/17 22:00 08/18/17 23:47 Cholecalciferol (Vitamin D3) 2,000 units DAILY PO 08/17/17 09:00 08/17/17 12:17 Docusate Sodium (Colace) 100 mg BID PO 08/17/17 09:00 08/19/17 08:25 Pyridostigmine [place] (Mestinon) 120 mg TID PO 08/17/17 09:00 08/19/17 08:21 Sodium Chloride (NS Flush) 2 ml BID IV FLUSH 08/16/17 22:00 08/18/17 08:09 Senna/Docusate Sodium (Ramona-Colace) 1 tab BID PO 08/17/17 09:00 08/17/17 12:17 Sodium Chloride 1,000 ml @ 50 mls/hr Q20H IV 08/16/17 23:00 08/19/17 11:48 Mycophenolate Mofetil (Cellcept) 250 mg DAILY@06 PO 08/18/17 06:00 08/19/17 06:45 Ondansetron HCl (Zofran Inj) 4 mg Q8HR PRN IV PUSH NAUSEA 08/18/17 11:15 08/18/17 11:31 Objective Remarks GENERAL: Pleasant elderly male, lying supine in bed in nad. SKIN: Warm and dry. HEAD: Normocephalic. EYES: No injection or drainage. NECK: Supple, trachea midline. CARDIOVASCULAR: Regular rate and rhythm RESPIRATORY: Breath sounds equal bilaterally. No accessory muscle use. GASTROINTESTINAL: Abdomen soft, non-tender, nondistended. EXTREMITIES: No cyanosis, or edema. MUSCULOSKELETAL: Adequate muscle tone. NEUROLOGICAL: awake and alert, garbled speech. moving all extremities. Assessment/Plan Problem List: (1) Myasthenia gravis with acute exacerbation ICD Codes: G70.01 - Myasthenia gravis with acute exacerbation Status: Acute Plan: --has been on chronic Mestinon therapy and also receives corticosteroids on and off. --Most recently he was advised initiation of CellCept Plan: 08/19: PEX #1 08/20: PEX #2 08/24: PEX #3 08/26: PEX #4 Assessment 86y/o male admitted with Myasthenia exacerbation; hematology service has been asked to see him to coordinate therapeutic plasma exchange treatments. History of colon carcinoma in remission. Hypertension. Hyperlipidemia. Prostate carcinoma. Plan 1. Plan is to give one plasma exchange today and one tomorrow. To allow the patient to go home for mazon, he may discharged after plasma exchange tomorrow. Clinics are closed Wednesday 08/22 and Thursday 08/23. I have arranged outpatient plasma exchange starting Friday 08/24 (9AM) and Sunday 08/26. I discussed this with Mr. Peters and he is agreeable with this plan. 2. monitor CBC, coags daily during plasma exchange. 3. we will replace plasma with FFP d/t patient's h/o of bleed. Elly Grimaldo Aug 19, 2017 12:02
--- NOTE | 2017-08-19 13:19 | RADRPT ---
EXAM DATE/TIME: 08/18/2017 14:24 [place] COMPARISON: TEMP DIALYSIS CATHETER [facility] W/US, RIGHT, June 30, 2017, 14:15. INDICATIONS : Patient presents with myasthenia Gravis, in need of a temporary dialysis catherter. 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 eye Right hernia repair Apr 2017 ENCOUNTER: Initial ACUITY: 2 days PAIN SCORE: 1/10 LOCATION: Headache FLUORO TIME: 0.6 minutes IMAGE SERIES: 1 ACCESS: Right internal jugular vein DEVICE(S): 1.) 14 [place] dual lumen 15 cm Schon catheter PROCEDURE : 1. Ultrasound guided venipuncture. 2. Fluoroscopic guidance. 3. Central line placement. The risks, benefits and alternatives to the procedure were explained and verbal and written consent w as obtained. The site was prepped in sterile fashion. Full sterile technique was used, including ca p, mask, sterile gloves and gown and a large sterile sheet. Hand hygiene and 2% chlorhexidine prep w as utilized per protocol for cutaneous antisepsis with appropriate dry time for site. Sterile gel an d sterile probe cover were utilized for ultrasound guidance. The skin and subcutaneous tissues were infiltrated with local anesthetic solution. A suitable site a marvel the vein was selected with ultrasound and fluoroscopic guidance. A small incision was made. Th e vein was accessed under direct ultrasound visualization using the micropuncture technique. The sin ropuncture set was exchanged for a 0.035 wire. The tract was dilated. The catheter was advanced int o position under direct fluoroscopic visualization. The catheter was fixed in place with suture and a sterile dressing was applied. The patient tolerated the procedure well and there were no complications. CONCLUSION: Uncomplicated line placement as above. Michael Gusman MD on August 19, 2017 at 13:16 Board Certified Radiologist. This report was verified electronically.
[2017-08-19] MEDS ORDERED: FAMOTIDINE 20 MG/2 ML VIAL IV PUSH ONE (15:00)
[2017-08-19] MEDS ORDERED: HEPARIN SODIUM - 1000 UNITS/ML 10 ML VIAL IV FLUSH PRN (15:00)
[2017-08-19] MEDS ORDERED: methylPREDNISolone SOD SUCC 125 MG/2 ML VIAL IV PUSH ONE (15:00)
[2017-08-19] MEDS: diphenhydrAMINE HCL 50 MG/ML VIAL IV PUSH PRN (15:14)
--- NOTE | 2017-08-19 16:14 | HHI.FPPN ---
Subjective Remarks Patient seen and examined prior to 1000. Feeling about the same as yesterday, still with some difficulty swallowing but no worse than previously. Denies CP/ SOB. (Jd Guzman MD) Objective Vitals Vital Signs Date Time Temp Pulse Resp B/P (MAP) Pulse Ox O2 Delivery O2 Flow Rate FiO2 08/19/17 12:00 97.1 57 12 124/63 (83) 98 08/19/17 08:00 98.0 67 17 146/70 (95) 99 08/19/17 08:00 97.6 67 17 146/70 (95) 94 08/19/17 05:38 97.9 57 20 144/62 (89) 94 08/19/17 03:41 53 08/19/17 00:46 97.8 59 19 166/71 (102) 97 08/18/17 23:43 61 08/18/17 19:44 Room Air 08/18/17 19:44 97.6 59 16 155/72 (99) 98 08/18/17 19:43 59 I/O 08/18/17 08/18/17 08/18/17 08/19/17 08/19/17 08/19/17 07:00 15:00 23:00 07:00 15:00 23:00 Intake Total 622 ml 1480 ml 1039 ml Output Total 100 ml Balance 622 ml 1480 ml 939 ml Intake Oral 480 ml IV Total 622 ml 1000 ml 1039 ml Output Urine Total 100 ml # Voids 4 5 3 (Jd Guzman MD) Result Diagram: 08/19/17 0719 08/19/17 0719 Imaging Last Impressions Catheter Placement X-Ray 08/18/17 1110 Signed Impressions: Service Date/Time: July 14:24 - CONCLUSION: Uncomplicated line placement as above. Michael Gusman MD Chest X-Ray 08/16/17 1920 Signed Impressions: Service Date/Time: Wednesday, August 16, 2017 19:52 - CONCLUSION: Probable small right pleural effusion. Agustin Paez MD Objective Remarks CONSTITUTIONAL/GEN: normally nourished, in NAD. Respiratory: clear A-P, respiratory effort is normal. CARDIOVASCULAR: RR with 1-2/6 late systolic murmur. Grossly normal perfusion GI/ABD: BS present and normal; abdomen soft/nontender. NEURO: Speech slightly difficult to understand. CN II-XII intact. No ocular weakness or ptosis apparent. MUSC: back is normal in appearance. Extremities normal in appearance. PSYCH/MENTAL STATUS: Alert and oriented x 3. Chronic anxiety. Procedures 08/18 - VasCath placement Medications and IVs Current Medications Medications (Trade) Dose Ordered Sig/Brock Route Start Time Stop Time Status Last Admin (Xanax) 0.25 mg DAILY PRN PO 08/16/17 22:00 08/18/17 23:47 (Vitamin D3) 2,000 units DAILY PO 08/17/17 09:00 08/17/17 12:17 (Colace) 100 mg BID PO 08/17/17 09:00 08/19/17 08:25 (Mestinon) 120 mg TID PO 08/17/17 09:00 08/19/17 08:21 (NS Flush) 2 ml UNSCH PRN IV FLUSH 08/16/17 22:00 08/19/17 15:14 (NS Flush) 2 ml BID IV FLUSH 08/16/17 22:00 08/18/17 08:09 (Narcan Inj) 0.4 mg UNSCH PRN IV PUSH 08/16/17 22:00 (Ramona-Colace) 1 tab BID PO 08/17/17 09:00 08/17/17 12:17 (Milk Of Magnesia Liq) 30 ml Q12H PRN PO 08/16/17 22:00 (Senokot) 17.2 mg Q12H PRN PO 08/16/17 22:00 (Dulcolax Supp) 10 mg DAILY PRN RECTAL 08/16/17 22:00 (Lactulose Liq) 30 ml DAILY PRN PO 08/16/17 22:00 Sodium Chloride 1,000 ml @ 50 mls/hr Q20H IV 08/16/17 23:00 08/19/17 11:48 (Cellcept) 250 mg DAILY@06 PO 08/18/17 06:00 08/19/17 06:45 (Zofran Inj) 4 mg Q8HR PRN IV PUSH 08/18/17 11:15 08/18/17 11:31 (NS Flush) UNSCH PRN IV FLUSH 08/18/17 14:15 (Heparin Inj) UNSCH PRN IV FLUSH 08/18/17 14:15 (Apresoline) 10 mg Q8HR PRN PO 08/18/17 18:00 (Tums Chew) 1,000 mg Q6HR PRN CHEW 08/19/17 12:00 08/19/17 14:05 (Benadryl Inj) 25 mg UNSCH PRN IV PUSH 08/19/17 15:00 08/19/17 15:14 (Heparin Inj) 1,000 units UNSCH PRN IV FLUSH 08/19/17 15:00 (Jd Guzman MD) A/P Assessment and Plan 86 yo male with h/o myasthenia gravis presenting with: (Jd Guzman MD) Attending Attestation Patient seen and examined. Case reviewed and discussed with the resident team. Agree with plan of care as discussed with me and documented in the resident note. (Chris Doherty MD) Problem List: (1) Myasthenia gravis with acute exacerbation ICD Codes: G70.01 - Myasthenia gravis with acute exacerbation Status: Acute Plan: Neurology consulted, appreciate recommendations -Vascular catheter placed 08/18 -Plan for plasmapharesis -Consult heme/onc for further assistance Heme/onc consulted, appreciate recs -"Plan is to give one plasma exchange today and one tomorrow. To allow the patient to go home for adriana, he may discharged after plasma exchange tomorrow. Clinics are closed Wednesday 08/22 and Thursday 08/23. I have arranged outpatient plasma exchange starting Friday 08/24 (9AM) and Sunday 08/26. I discussed this with Mr. 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 Continue home Mestinon 120mg PO TID if pt passes swallow eval (2) Dysarthria ICD Codes: R47.1 - Dysarthria and anarthria Status: Acute Plan: Speech therapy consulted: Pureed diet, nectar consistency thickened liquids OT consulted: Home with no OT recommended (3) Anxiety ICD Codes: F41.9 - Anxiety Status: Chronic Plan: Continue home Xanax 0.25 mg PO daily PRN (4) HTN (hypertension) ICD Codes: I10 - Essential (primary) hypertension Status: Resolved Plan: BP initially elevated, now wnl for age - Hydralazine PRN BP > 180/100 (5) Nutrition, metabolism, and development symptoms ICD Codes: R63.8 - Other symptoms and signs concerning food and fluid intake Status: Acute Plan: Diet: Pureed diet, nectar thickened liquids Fluids: 50mls/hr NS Nutrition: As above (Jd Guzman MD) Problem Qualifiers (1) HTN (hypertension): Qualified Codes: I10 - Essential (primary) hypertension Jd Guzman MD Aug 19, 2017 16:14 Chris Doherty MD Aug 23, 2017 09:03
--- NOTE | 2017-08-19 16:29 | HHI.PR ---
Review/Management Diagnosis Myasthenia gravis exacerbation Plan - Neuro checks q.4 hours. - Plasma exchange, for 5 treatments. 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 - GI prophylaxis. - Mestinon 120 mg three times daily. - CellCept 250 mg once daily. - Monitor vital capacity and NIF twice daily - Patient can be released home after an uneventful second treatment - Follow up with Dr. Loyola, neurology, as outpatient, his primary neurologist. Diagnosis/Plan: Subjective Subjective Comments First day of Plasma exchange Plan is to receive first two dose in the hospital, the rest as outpatient Patient is in dialysis unit Active Medications Current Medications Medications (Trade) Dose Ordered Sig/Brock Route Start Time Stop Time Status Last Admin (Xanax) 0.25 mg DAILY PRN PO 08/16/17 22:00 08/18/17 23:47 (Vitamin D3) 2,000 units DAILY PO 08/17/17 09:00 08/17/17 12:17 (Colace) 100 mg BID PO 08/17/17 09:00 08/19/17 08:25 (Mestinon) 120 mg TID PO 08/17/17 09:00 08/19/17 08:21 (NS Flush) 2 ml UNSCH PRN IV FLUSH 08/16/17 22:00 08/19/17 15:14 (NS Flush) 2 ml BID IV FLUSH 08/16/17 22:00 08/18/17 08:09 (Narcan Inj) 0.4 mg UNSCH PRN IV PUSH 08/16/17 22:00 (Ramona-Colace) 1 tab BID PO 08/17/17 09:00 08/17/17 12:17 (Milk Of Magnesia Liq) 30 ml Q12H PRN PO 08/16/17 22:00 (Senokot) 17.2 mg Q12H PRN PO 08/16/17 22:00 (Dulcolax Supp) 10 mg DAILY PRN RECTAL 08/16/17 22:00 (Lactulose Liq) 30 ml DAILY PRN PO 08/16/17 22:00 Sodium Chloride 1,000 ml @ 50 mls/hr Q20H IV 08/16/17 23:00 08/19/17 11:48 (Cellcept) 250 mg DAILY@06 PO 08/18/17 06:00 08/19/17 06:45 (Zofran Inj) 4 mg Q8HR PRN IV PUSH 08/18/17 11:15 08/18/17 11:31 (NS Flush) UNSCH PRN IV FLUSH 08/18/17 14:15 (Heparin Inj) UNSCH PRN IV FLUSH 08/18/17 14:15 (Apresoline) 10 mg Q8HR PRN PO 08/18/17 18:00 (Tums Chew) 1,000 mg Q6HR PRN CHEW 08/19/17 12:00 08/19/17 14:05 (Benadryl Inj) 25 mg UNSCH PRN IV PUSH 08/19/17 15:00 08/19/17 15:14 (Heparin Inj) 1,000 units UNSCH PRN IV FLUSH 08/19/17 15:00 Allergies Allergies Coded Allergies Sulfa (Sulfonamide Antibiotics) (Unverified Allergy, Severe, Flushing, ) lorazepam (Unverified Allergy, Intermediate, Psychosis, 08/16/17) prochlorperazine (Unverified Allergy, Unknown, JITTERY, 08/16/17) Review of Systems All other ROS: ROS reviewed as documented in chart Exam I&O / VS Vital Signs Date Time Temp Pulse Resp B/P (MAP) Pulse Ox O2 Delivery O2 Flow Rate FiO2 08/19/17 12:00 97.1 57 12 124/63 (83) 98 08/19/17 08:00 98.0 67 17 146/70 (95) 99 08/19/17 08:00 97.6 67 17 146/70 (95) 94 08/19/17 05:38 97.9 57 20 144/62 (89) 94 08/19/17 03:41 53 08/19/17 00:46 97.8 59 19 166/71 (102) 97 08/18/17 23:43 61 08/18/17 19:44 Room Air 08/18/17 19:44 97.6 59 16 155/72 (99) 98 08/18/17 19:43 59 Objective Radiology Results Last 72 hours Impressions Catheter Placement X-Ray 08/18/17 1110 Signed Impressions: Service Date/Time: July 14:24 - CONCLUSION: Uncomplicated line placement as above. Michael Gusman MD Micro and Labs Laboratory Tests Test 08/19/17 06:00 08/19/17 07:19 Prothrombin Time 11.4 Prothromb Time International Ratio 1.1 Fibrinogen 261 White Blood Count 2.4 Red Blood Count 3.71 Hemoglobin 11.2 Hematocrit 34.0 Mean Corpuscular Volume 91.7 Mean Corpuscular Hemoglobin 30.1 Mean Corpuscular Hemoglobin Concent 32.9 Red Cell Distribution Width 14.4 Platelet Count 117 Mean Platelet Volume 8.3 Neutrophils (%) (Auto) 68.4 Lymphocytes (%) (Auto) 13.7 Monocytes (%) (Auto) 12.9 Eosinophils (%) (Auto) 4.0 Basophils (%) (Auto) 1.0 Neutrophils # (Auto) 1.6 Lymphocytes # (Auto) 0.3 Monocytes # (Auto) 0.3 Eosinophils # (Auto) 0.1 Basophils # (Auto) 0.0 CBC Comment DIFF FINAL Differential Comment Blood Urea Nitrogen 18 Creatinine 0.97 Random Glucose 98 Calcium Level 8.6 Sodium Level 142 Potassium Level 3.6 Chloride Level 108 Carbon Dioxide Level 29.1 Anion Gap 5 Estimat Glomerular Filtration Rate 73 Reddy Dexter MD Aug 19, 2017 16:29
[2017-08-19] MEDS: ALPRAZolam 0.25 MG TAB PO PRN (23:24)
[2017-08-20] VITALS (8 sets, daily range): BP systolic 119–131; BP diastolic 57–65; PULSE 61–89; RESP 18–20; TEMP 97.4–97.9; O2SAT 95–98
[2017-08-20] MEDS: MYCOPHENOLATE MOFETIL 250 MG CAP PO SCH (06:24)
[2017-08-20] MEDS: DOCUSATE SODIUM 50 MG/SENNA 8.6 MG TAB PO SCH ×2 (08:58→21:00)
[2017-08-20] MEDS: DOCUSATE SODIUM 100 MG CAP PO SCH ×2 (08:58→21:53)
[2017-08-20] MEDS: CHOLECALCIFEROL (VIT D3) 1000 UNIT TAB PO SCH (08:58)
[2017-08-20] MEDS: PYRIDOSTIGMINE BROMIDE 60 MG TAB PO SCH ×3 (08:58→17:43)
[2017-08-20 10:32] LABS: AUTOMATED NEUTROPHIL # 2.2 TH/MM3 (1.8-7.7); BASOPHIL % 0.4 % (0.0-2.0); EOSINOPHIL % 0.3 % (0.0-4.0); HEMATOCRIT 33.1 % (39.0-51.0); HEMO FLAGS DIFF FINAL; LYMPH % 14.6 % (9.0-44.0); LYMPHOCYTE # 0.5 TH/MM3 (1.0-4.8); MEAN CELL VOLUME 91.4 FL (80.0-100.0); MEAN CORPUSCULAR HGB CONC 32.8 % (32.0-36.0); MONO % 15.9 % (0.0-8.0); NEUT % 68.8 % (16.0-70.0); PLATELET COUNT 130 TH/MM3 (150-450); RED BLOOD COUNT 3.62 MIL/MM3 (4.50-5.90); RED CELL DISTRIBUTION WIDTH 14.2 % (11.6-17.2); WHITE BLOOD COUNT 3.2 TH/MM3 (4.0-11.0)
[2017-08-20 10:56] LABS: BICARBONATE 32.7 MEQ/L (21.0-32.0); POTASSIUM 3.6 MEQ/L (3.5-5.1)
[2017-08-20 11:02] LABS: APTT (PATIENT) 24.3 SEC (24.3-30.1); INTERNATIONAL NORMALIZED RATIO 1.1 RATIO; PROTHROMBIN TIME - PATIENT 11.4 SEC (9.8-11.6)
--- NOTE | 2017-08-20 11:11 | HHI.FPPN ---
Subjective Remarks Saw and examined patient this morning. Patient states that he is feeling better after his plasmapheresis yesterday. He states that he is able to move this time a lot more. However, he is still having trouble swallowing his food. He was hoping that this will is off after his second plasmapheresis session this afternoon. He states that he is fine with staying another night in order to be reevaluated for his swallowing in the morning. (Merlyn aJlloh MD R1) Objective Vitals Vital Signs Date Time Temp Pulse Resp B/P (MAP) Pulse Ox O2 Delivery O2 Flow Rate FiO2 08/20/17 08:02 97.6 62 18 119/58 (78) 96 08/20/17 08:00 Room Air 08/20/17 04:00 97.8 64 20 127/61 (83) 96 08/20/17 03:47 89 08/20/17 00:00 97.4 72 20 120/65 (83) 96 08/19/17 23:44 72 08/19/17 20:19 67 08/19/17 20:00 97.7 78 20 126/71 (89) 97 08/19/17 19:45 Room Air 08/19/17 12:00 97.1 57 12 124/63 (83) 98 08/19/17 12:00 57 I/O 08/19/17 08/19/17 08/19/17 08/20/17 08/20/17 08/20/17 07:00 15:00 23:00 07:00 15:00 23:00 Intake Total 1039 ml 360 ml Output Total 100 ml Balance 939 ml 360 ml Intake Oral 360 ml IV Total 1039 ml Output Urine Total 100 ml # Voids 3 3 2 # Bowel Movements 1 (Merlyn Jalloh MD R1) Result Diagram: 08/20/17 0955 08/20/17 0955 Imaging Last Impressions Catheter Placement X-Ray 08/18/17 1110 Signed Impressions: Service Date/Time: July 14:24 - CONCLUSION: Uncomplicated line placement as above. Michael Gusman MD Chest X-Ray 08/16/17 1920 Signed Impressions: Service Date/Time: Wednesday, August 16, 2017 19:52 - CONCLUSION: Probable small right pleural effusion. Agustin Paez MD Objective Remarks CONSTITUTIONAL/GEN: normally nourished, in NAD. Respiratory: clear A-P, respiratory effort is normal. CARDIOVASCULAR: RR with 1-2/6 late systolic murmur. Grossly normal perfusion. VasCath in place at right chest. GI/ABD: BS present and normal; abdomen soft/nontender. NEURO: Speech slightly improved from yesterday. CN II-XII intact. No ocular weakness or ptosis apparent. MUSC: back is normal in appearance. Extremities normal in appearance. PSYCH/MENTAL STATUS: Alert and oriented x 3. Chronic anxiety. Procedures 08/18 - VasCath placement (Merlyn Jalloh MD R1) A/P Assessment and Plan 86 yo male with h/o myasthenia gravis presenting with: Discharge Planning Tomorrow after final evaluation by ST for dysphagia. (Merlyn Jalloh MD R1) Attending Attestation Patient seen and examined. Case reviewed and discussed with the resident team. Agree with plan of care as discussed with me and documented in the resident note. (Chris Doherty MD) Problem List: (1) Myasthenia gravis with acute exacerbation ICD Codes: G70.01 - Myasthenia gravis with acute exacerbation Status: Acute Plan: Neurology consulted, appreciate recommendations -Vascular catheter placed 08/18 -Plan for plasmapharesis -Consult heme/onc for further assistance Heme/onc consulted, appreciate recs -2nd plasma exchange to be done today, may go home after second session today if not too late in the evening -arranged outpatient plasma exchange starting Friday 08/24 (9AM) and Sunday 08/26 -monitor CBC, coags daily during plasma exchange -will replace plasma with FFP d/t patient's h/o of bleed 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 Continue home Mestinon 120mg PO TID if pt passes swallow eval (2) Dysarthria ICD Codes: R47.1 - Dysarthria and anarthria Status: Acute Plan: Speech therapy consulted: Pureed diet, nectar consistency thickened liquids OT consulted: Home with no OT recommended (3) Anxiety ICD Codes: F41.9 - Anxiety Status: Chronic Plan: Continue home Xanax 0.25 mg PO daily PRN (4) HTN (hypertension) ICD Codes: I10 - Essential (primary) hypertension Status: Resolved Plan: BP initially elevated, now wnl for age - Hydralazine PRN BP > 180/100 (5) Nutrition, metabolism, and development symptoms ICD Codes: R63.8 - Other symptoms and signs concerning food and fluid intake Status: Acute Plan: Diet: Pureed diet, nectar thickened liquids Fluids: 50mls/hr NS Nutrition: As above (Merlyn Jalloh MD R1) Problem Qualifiers (1) HTN (hypertension): Qualified Codes: I10 - Essential (primary) hypertension Merlyn Jalloh MD R1 Aug 20, 2017 11:11 Chris Doherty MD Aug 23, 2017 09:06
--- NOTE | 2017-08-20 12:36 | PD.ONC.PN ---
Subjective Subjective Remarks Afebrile overnight. Resting in room. Already noticing improvement in speech and swallowing. Ready to go home after plasma exchange today. Objective Data Date Time Temp Pulse Resp B/P (MAP) Pulse Ox O2 Delivery O2 Flow Rate FiO2 08/20/17 12:02 97.7 61 18 122/57 (78) 98 08/20/17 08:02 97.6 62 18 119/58 (78) 96 08/20/17 08:00 Room Air 08/20/17 04:00 97.8 64 20 127/61 (83) 96 08/20/17 03:47 89 08/20/17 00:00 97.4 72 20 120/65 (83) 96 08/19/17 23:44 72 08/19/17 20:19 67 08/19/17 20:00 97.7 78 20 126/71 (89) 97 08/19/17 19:45 Room Air Result Diagram: 08/20/17 0955 08/20/17 0955 Laboratory Results Laboratory Tests Test 08/20/17 09:55 White Blood Count 3.2 TH/MM3 Red Blood Count 3.62 MIL/MM3 Hemoglobin 10.9 GM/DL Hematocrit 33.1 % Mean Corpuscular Volume 91.4 FL Mean Corpuscular Hemoglobin 30.0 PG Mean Corpuscular Hemoglobin Concent 32.8 % Red Cell Distribution Width 14.2 % Platelet Count 130 TH/MM3 Mean Platelet Volume 8.1 FL Neutrophils (%) (Auto) 68.8 % Lymphocytes (%) (Auto) 14.6 % Monocytes (%) (Auto) 15.9 % Eosinophils (%) (Auto) 0.3 % Basophils (%) (Auto) 0.4 % Neutrophils # (Auto) 2.2 TH/MM3 Lymphocytes # (Auto) 0.5 TH/MM3 Monocytes # (Auto) 0.5 TH/MM3 Eosinophils # (Auto) 0.0 TH/MM3 Basophils # (Auto) 0.0 TH/MM3 CBC Comment DIFF FINAL Differential Comment Prothrombin Time 11.4 SEC Prothromb Time International Ratio 1.1 RATIO Activated Partial Thromboplast Time 24.3 SEC Fibrinogen 226 mg/dL Blood Urea Nitrogen 19 MG/DL Creatinine 1.09 MG/DL Random Glucose 98 MG/DL Calcium Level 8.7 MG/DL Sodium Level 141 MEQ/L Potassium Level 3.6 MEQ/L Chloride Level 104 MEQ/L Carbon Dioxide Level 32.7 MEQ/L Anion Gap 4 MEQ/L Estimat Glomerular Filtration Rate 64 ML/MIN Administered Medications Medications (Trade) Dose Ordered Sig/Brock Route PRN Reason Start Time Stop Time Status Last Admin Dose Admin Alprazolam (Xanax) 0.25 mg DAILY PRN PO ANXIETY 08/16/17 22:00 08/19/17 23:24 Cholecalciferol (Vitamin D3) 2,000 units DAILY PO 08/17/17 09:00 08/20/17 08:58 Docusate Sodium (Colace) 100 mg BID PO 08/17/17 09:00 08/20/17 08:58 Pyridostigmine [place] (Mestinon) 120 mg TID PO 08/17/17 09:00 08/20/17 08:58 Sodium Chloride (NS Flush) 2 ml UNSCH PRN IV FLUSH FLUSH AFTER USING IV ACCESS 08/16/17 22:00 08/19/17 15:14 Sodium Chloride (NS Flush) 2 ml BID IV FLUSH 08/16/17 22:00 08/19/17 20:46 Senna/Docusate Sodium (Ramona-Colace) 1 tab BID PO 08/17/17 09:00 08/20/17 08:58 Sodium Chloride 1,000 ml @ 50 mls/hr Q20H IV 08/16/17 23:00 08/19/17 11:48 Mycophenolate Mofetil (Cellcept) 250 mg DAILY@06 PO 08/18/17 06:00 08/20/17 06:24 Ondansetron HCl (Zofran Inj) 4 mg Q8HR PRN IV PUSH NAUSEA 08/18/17 11:15 08/18/17 11:31 Calcium Carbonate (Tums Chew) 1,000 mg Q6HR PRN CHEW calcium supplement 08/19/17 12:00 08/19/17 14:05 Diphenhydramine HCl (Benadryl Inj) 25 mg UNSCH PRN IV PUSH ALLERGIC REACTION 08/19/17 15:00 08/19/17 15:14 Objective Remarks GENERAL: Pleasant elderly male sitting up in room in [facility] SKIN: Warm and dry. vas-cath in place, right neck, no bleeding HEAD: Normocephalic. EYES: No injection or drainage. NECK: Supple, trachea midline. CARDIOVASCULAR: Regular rate and rhythm RESPIRATORY: Breath sounds equal bilaterally. No accessory muscle use. GASTROINTESTINAL: Abdomen soft, non-tender, nondistended. EXTREMITIES: No cyanosis MUSCULOSKELETAL: Adequate muscle tone. NEUROLOGICAL: No obvious focal deficit. Awake, alert, and oriented x3. Assessment/Plan Assessment 86y/o male admitted with Myasthenia exacerbation; hematology service has been asked to see him to coordinate therapeutic plasma exchange treatments. History of colon carcinoma in remission. Hypertension. Hyperlipidemia. Prostate carcinoma. Plan 1. proceed with plasma exchange #2 today. ok to d/c after plasma exchange 2. follow up in clinic Tuesday for next plasma exchange outpatient. Attending Statement The exam, history, and the medical decision-making described in the above note were completed with the assistance of the mid-level provider. I reviewed and agree with the findings presented. I attest that I had a [id number] encounter with the patient on the same day, and personally performed and documented my assessment and findings in the medical record. improved since plasma exchange yesterday with speech stronger. for exchange today then home and follow up exchange next Tuesday. Above reviewed with him. Elly Grimaldo Aug 20, 2017 12:36 Mike Avery MD Aug 20, 2017 12:49
[2017-08-20] MEDS: diphenhydrAMINE HCL 50 MG/ML VIAL IV PUSH PRN (13:13)
[2017-08-20] MEDS: SODIUM CHLOR 0.9% 1000 ML INJ 1,000 ML IV SCH (19:00)
[2017-08-20] MEDS: SODIUM CHLORIDE 0.9% FLUSH 10 ML FLUSH IV FLUSH SCH (21:00)
[2017-08-20] MEDS: ALPRAZolam 0.25 MG TAB PO PRN (23:20)
[2017-08-21] VITALS: BP 138/68; PULSE 74; RESP 21; TEMP 98.1; O2SAT 96
[2017-08-21] MEDS: SODIUM CHLOR 0.9% 1000 ML INJ 1,000 ML IV SCH (03:00)
[2017-08-21 04:00] VITALS: BP 138/61; PULSE 61; RESP 20; TEMP 97.9; O2SAT 93
[2017-08-21 04:09] VITALS: PULSE 59
[2017-08-21] MEDS: MYCOPHENOLATE MOFETIL 250 MG CAP PO SCH (06:59)
[2017-08-21] MEDS: PYRIDOSTIGMINE BROMIDE 60 MG TAB PO SCH ×2 (06:59→12:04)
[2017-08-21 08:00] VITALS: BP 170/80; PULSE 75; RESP 18; TEMP 97.6; O2SAT 93
[2017-08-21 08:42] LABS: AUTOMATED NEUTROPHIL # 0.9 TH/MM3 (1.8-7.7); BASOPHIL % 1.1 % (0.0-2.0); EOSINOPHIL # 0.1 TH/MM3 (0-0.4); EOSINOPHIL % 4.4 % (0.0-4.0); HEMATOCRIT 28.8 % (39.0-51.0); LYMPH % 23.9 % (9.0-44.0); LYMPHOCYTE # 0.4 TH/MM3 (1.0-4.8); MEAN CELL VOLUME 91.3 FL (80.0-100.0); MEAN CORPUSCULAR HEMOGLOBIN 30.8 PG (27.0-34.0); MEAN CORPUSCULAR HGB CONC 33.8 % (32.0-36.0); NEUT % 55.6 % (16.0-70.0); PLATELET COUNT 87 TH/MM3 (150-450); RED BLOOD COUNT 3.15 MIL/MM3 (4.50-5.90); RED CELL DISTRIBUTION WIDTH 14.4 % (11.6-17.2); WHITE BLOOD COUNT 1.7 TH/MM3 (4.0-11.0)
[2017-08-21 08:45] LABS: HEMO FLAGS AUTO DIFF
[2017-08-21 08:48] LABS: APTT (PATIENT) 25.1 SEC (24.3-30.1); INTERNATIONAL NORMALIZED RATIO 1.1 RATIO; PROTHROMBIN TIME - PATIENT 11.4 SEC (9.8-11.6)
[2017-08-21] MEDS: DOCUSATE SODIUM 50 MG/SENNA 8.6 MG TAB PO SCH (08:50)
[2017-08-21] MEDS: DOCUSATE SODIUM 100 MG CAP PO SCH (08:50)
[2017-08-21] MEDS: CHOLECALCIFEROL (VIT D3) 1000 UNIT TAB PO SCH (08:50)
[2017-08-21] MEDS: SODIUM CHLORIDE 0.9% FLUSH 10 ML FLUSH IV FLUSH SCH (08:50)
[2017-08-21 09:02] LABS: ANION GAP 5 MEQ/L (5-15); AST (GOT) 21 U/L (15-37); BICARBONATE 33.4 MEQ/L (21.0-32.0); BLOOD UREA NITROGEN 17 MG/DL (7-18); CHLORIDE 104 MEQ/L (98-107); GLOMERULAR FILTRATION RATE 75 ML/MIN (>89); POTASSIUM 3.4 MEQ/L (3.5-5.1); SODIUM (NA) 142 MEQ/L (136-145)
[2017-08-21 09:04] LABS: ALT (GPT) 23 U/L (12-78)
[2017-08-21 09:05] LABS: ALKALINE PHOSPHATASE 66 U/L (45-117); TOTAL BILIRUBIN ADULT 0.8 MG/DL (0.2-1.0)
[2017-08-21 10:00] LABS: BANDS 2 % (0-6); BASOPHILS 2 % (0-2); EOSINOPHILS 1 % (0-4); NEUTROPHIL # MANUAL DIFF 1.2 TH/MM3 (1.8-7.7); POLYS (SEG NEUTROPHILS) 66 % (16-70); WBC DIFF SAMPLE 100
[2017-08-21 10:01] LABS: OVALOCYTES 1+ (NORMAL); PLATELET ESTIMATE SMEAR LOW (NORMAL); PLATELET MORPHOLOGY NORMAL (NORMAL); SCAN/DIFF FINAL DIFF MANUAL
[2017-08-21 11:17] VITALS: PULSE 66
[2017-08-21 11:45] VITALS: BP 143/90; PULSE 68; RESP 18; TEMP 97.6; O2SAT 98
[2017-08-21] MEDS ORDERED: MYCO250 PO (11:57)
--- NOTE | 2017-08-21 11:57 | HHI.DCPOC ---
Discharge Care Plan Diagnosis: (1) Myasthenia gravis with acute exacerbation (2) HTN (hypertension) (3) Difficulty swallowing (4) Partial bowel obstruction (5) Physical deconditioning Goals to Promote Your Health * To prevent worsening of your condition and complications * To maintain your health at the optimal level Directions to Meet Your Goals Take your medications as prescribed Follow your dietary instruction Follow activity as directed Keep your appointments as scheduled Take your immunizations and boosters as scheduled If your symptoms worsen call your PCP, if no PCP go to Urgent Care Center or Emergency Room Smoking is Dangerous to Your Health. Avoid second hand smoke Call the 24-hour hour crisis hotline for domestic abuse at Jd Guzman MD Aug 21, 2017 11:57
--- NOTE | 2017-08-21 17:54 | HHI.FPPN ---
Subjective Remarks Seen and examined ~1100. No acute events overnight. Mild persistent swallowing difficulty but not worsened. Otherwise feels well. No CP/SOB/local weakness. (Jd Guzman MD) Objective Vitals Vital Signs Date Time Temp Pulse Resp B/P (MAP) Pulse Ox O2 Delivery O2 Flow Rate FiO2 08/21/17 11:45 97.6 68 18 143/90 (107) 98 08/21/17 11:17 66 08/21/17 08:20 Room Air 08/21/17 08:00 97.6 75 18 170/80 (110) 93 08/21/17 04:09 59 08/21/17 04:00 97.9 61 20 138/61 (86) 93 08/21/17 00:00 98.1 74 21 138/68 (91) 96 08/20/17 23:56 65 08/20/17 20:00 97.9 68 19 131/62 (85) 95 08/20/17 20:00 68 08/20/17 19:45 Room Air I/O 08/20/17 08/20/17 08/20/17 08/21/17 08/21/17 08/21/17 07:00 15:00 23:00 07:00 15:00 23:00 Intake Total 480 ml 480 ml 480 ml Output Total 700 ml Balance 480 ml -220 ml 480 ml Intake Oral 480 ml 480 ml 480 ml Output Urine Total 700 ml # Voids 2 1 3 # Bowel Movements 1 0 0 0 (Jd Guzman MD) Result Diagram: 08/21/17 0635 08/21/17 0635 Imaging Last Impressions Catheter Placement X-Ray 08/18/17 1110 Signed Impressions: Service Date/Time: July 14:24 - CONCLUSION: Uncomplicated line placement as above. Michael Gusman MD Chest X-Ray 08/16/17 1920 Signed Impressions: Service Date/Time: Wednesday, August 16, 2017 19:52 - CONCLUSION: Probable small right pleural effusion. Agustin Paez MD Objective Remarks CONSTITUTIONAL/GEN: normally nourished, in NAD. Respiratory: clear A-P, respiratory effort is normal. CARDIOVASCULAR: RR with 1-2/6 late systolic murmur. Grossly normal perfusion. VasCath in place at right chest. GI/ABD: BS present and normal; abdomen soft/nontender. NEURO: Speech slightly improved from yesterday. CN II-XII intact. No ocular weakness or ptosis apparent. MUSC: back is normal in appearance. Extremities normal in appearance. PSYCH/MENTAL STATUS: Alert and oriented x 3. Chronic anxiety. Procedures 08/18 - VasCath placement Plasmapharesis 08/19 and 08/20 (Jd Guzman MD) A/P Assessment and Plan 86 yo male with h/o myasthenia gravis presenting with: (Jd Guzman MD) Attending Attestation Patient seen and examined. Case reviewed and discussed with the resident team. Agree with plan of care as discussed with me and documented in the resident note. (Chris Doherty MD) Problem List: (1) Myasthenia gravis with acute exacerbation ICD Codes: G70.01 - Myasthenia gravis with acute exacerbation Status: Acute Plan: Improving Neurology consulted, appreciate recommendations -Vascular catheter placed 08/18 -Plan for plasmapharesis, see heme/onc recs -Continue home Mestinon 120mg PO TIDAC -Cellcept 250 mg daily Heme/onc consulted, appreciate recs -s/p two plasmapharesis treatments; stable for discharge -arranged outpatient plasma exchange starting Friday 08/24 (9AM) and Sunday 08/26 -recieved 1 unit FFP d/t patient's h/o of bleed (2) Dysarthria ICD Codes: R47.1 - Dysarthria and anarthria Status: Acute Plan: Speech therapy consulted: mechanical soft, nectar consistency thickened liquids, ST on discharge OT consulted: no needs on discharge (3) Anxiety ICD Codes: F41.9 - Anxiety Status: Chronic Plan: Continue home Xanax 0.25 mg PO daily PRN (Jd Guzman MD) Jd Guzman MD Aug 21, 2017 17:54 Chris Doherty MD Aug 23, 2017 09:08
--- NOTE | 2017-08-21 17:58 | HHI.DS ---
Discharge Summary Admission Date Aug 16, 2017 at 9:40 pm Discharge Date: Aug 21, 2017 Admitting Diagnosis Exacerbation of Myasthenia Gravis (1) Myasthenia gravis with acute exacerbation Diagnosis: Principal ICD Codes: G70.01 - Myasthenia gravis with acute exacerbation Status: Acute (2) Dysarthria Diagnosis: Principal ICD Codes: R47.1 - Dysarthria and anarthria Status: Acute (3) Anxiety Diagnosis: Secondary ICD Codes: F41.9 - Anxiety Status: Chronic Consultants Neurology - Dr. Dexter Heme/Onc - Dr. Nevarez Procedures 08/18 - VasCath placement Plasmapharesis 08/19 and 08/20 Brief History Mr. Peters is a pleasant 86 yr old M with history Myasthenia gravis presents with MG flare symptoms. He reports that he started having trouble swallowing and talking throughout the weekend. On Tuesday, he went to go see his neurologist , Dr. Loyola, about his symptoms. Dr. Loyola suggested he be admitted to the hospital to receive plasmapheresis. He decided he didn't want to be admitted because he wanted to stay home for the holidays. His symptoms, however , continued to worsen. He was unable to eat dinner today due to trouble swallowing and was also having slurred speech. He talked with the quality control head neurologist and came immediately to the hospital. His MG flares always consist of dysarthria and dysphagia. His most recent for MG flare was 07/01. He denies shortness of breath, focal weakness, fevers, chills, blurry vision. Oncologist: Dr. Garica Neurologist: Dr. Loyola CBC/BMP: 08/21/17 0635 08/21/17 0635 Significant Findings Laboratory Tests Test 08/19/17 06:00 08/19/17 07:19 08/20/17 09:55 08/21/17 06:35 White Blood Count 2.4 TH/MM3 (4.0-11.0) 3.2 TH/MM3 (4.0-11.0) 1.7 TH/MM3 (4.0-11.0) Red Blood Count 3.71 MIL/MM3 (4.50-5.90) 3.62 MIL/MM3 (4.50-5.90) 3.15 MIL/MM3 (4.50-5.90) Hemoglobin 11.2 GM/DL (13.0-17.0) 10.9 GM/DL (13.0-17.0) 9.7 GM/DL (13.0-17.0) Hematocrit 34.0 % (39.0-51.0) 33.1 % (39.0-51.0) 28.8 % (39.0-51.0) Platelet Count 117 TH/MM3 (150-450) 130 TH/MM3 (150-450) 87 TH/MM3 (150-450) Monocytes (%) (Auto) 12.9 % (0.0-8.0) 15.9 % (0.0-8.0) 15.0 % (0.0-8.0) Neutrophils # (Auto) 1.6 TH/MM3 (1.8-7.7) 0.9 TH/MM3 (1.8-7.7) Lymphocytes # (Auto) 0.3 TH/MM3 (1.0-4.8) 0.5 TH/MM3 (1.0-4.8) 0.4 TH/MM3 (1.0-4.8) Chloride Level 108 MEQ/L (98-107) Estimat Glomerular Filtration Rate 73 ML/MIN (>89) 64 ML/MIN (>89) 75 ML/MIN (>89) Fibrinogen 226 mg/dL (227-377) 198 mg/dL (227-377) Blood Urea Nitrogen 19 MG/DL (7-18) Carbon Dioxide Level 32.7 MEQ/L (21.0-32.0) 33.4 MEQ/L (21.0-32.0) Anion Gap 4 MEQ/L (5-15) Eosinophils (%) (Auto) 4.4 % (0.0-4.0) Neutrophils # (Manual) 1.2 TH/MM3 (1.8-7.7) Platelet Estimate LOW (NORMAL) Ovalocytes 1+ (NORMAL) Total Protein 5.7 GM/DL (6.4-8.2) Albumin 3.1 GM/DL (3.4-5.0) Calcium Level 8.2 MG/DL (8.5-10.1) Potassium Level 3.4 MEQ/L (3.5-5.1) Imaging Last Impressions Catheter Placement X-Ray 08/18/17 1110 Signed Impressions: Service Date/Time: July 14:24 - CONCLUSION: Uncomplicated line placement as above. Michael Gusman MD Chest X-Ray 08/16/17 1920 Signed Impressions: Service Date/Time: Wednesday, August 16, 2017 19:52 - CONCLUSION: Probable small right pleural effusion. Agustin Paez MD PE at Discharge CONSTITUTIONAL/GEN: normally nourished, in NAD. Respiratory: clear A-P, respiratory effort is normal. CARDIOVASCULAR: RR with 1-2/6 late systolic murmur. Grossly normal perfusion. VasCath in place at right chest. GI/ABD: BS present and normal; abdomen soft/nontender. NEURO: Speech slightly improved from yesterday. CN II-XII intact. No ocular weakness or ptosis apparent. MUSC: back is normal in appearance. Extremities normal in appearance. PSYCH/MENTAL STATUS: Alert and oriented x 3. Chronic anxiety. Hospital Course 86-year-old male with myasthenia gravis omitted for flare of myasthenia gravis causing some dysphagia and dysarthria. Neurology was consulted and recommended him restarting his CellCept as well as continuing his home Mestinon. He also recommended plasmapheresis which he been receiving as an outpatient. Vas-Cath was placed on 08/18 which patient tolerated well. He received 2 courses of plasmapheresis on 08/19 in 08/20, and had outpatient plasmapheresis arranged by hematology/oncology for 08/24 in 08/26. His swallowing improved somewhat he is medically stable for discharge. Speech therapy evaluated him and recommended dietary modification as noted below. Pt Condition on Discharge: Stable Discharge Disposition: Discharge Home Discharge Instructions DIET: Follow Instructions for: As Tolerated, No Restrictions Speech Therapy-Diet Recommends: Pureed, [place] Thickened Liquids Activities you can perform: Regular-No Restrictions Follow up Referrals: Neurology - 1 Week with Mickey Loyola MD PCP Follow-up - 2 Weeks with Chris Doherty MD New Orders: Speech Therapy - 1 Week New Medications: Mycophenolate (Cellcept) 250 Mg Cap 250 MG PO DAILY@06, #30 CAP Continued Medications: Alprazolam (Xanax) 0.25 Mg Tab 0.25 MG PO DAILY PRN for ANXIETY, #30 TAB 2 Refills Calcium Carbonate (Antacid) (Tums) 500 Mg Chew 1000 MG CHEW BID PRN for calcium supplement, TAB 0 Refills Cholecalciferol (Vitamin D3) 2,000 Unit Cap 2000 UNITS PO DAILY for Nutritional Supplement, #1 BOTTLE 0 Refills Cyanocobalamin (Vitamin B-12) 1,000 Mcg Tab 1000 MCG PO DAILY for Nutritional Supplement, #1 BOTTLE 0 Refills Cyanocobalamin Inj (Cyanocobalamin Inj) 1,000 Mcg/Ml Inj 1000 MCG IM MONTHLY, #1 VIAL 0 Refills Docusate Sodium (Docusate Sodium) 100 Mg Cap 100 MG PO BID for Prevent Constipation, #60 CAP 0 Refills Magnesium Hydroxide Liq (Milk of Magnesia Liq) 400 Mg/5 Ml Susp 30 ML PO DIRECTED PRN for INDIGESTION OR UPSET STOMACH, #1 BOTTLE 0 Refills 30ml every 3rd day if no regular BM Nutritional Supplements (Ensure Plus) 1 Liq Liq 1 CAN PO DAILY, CAN Pyridostigmine (Mestinon) 60 Mg Tab 120 MG PO TID for Manage Myastenia Gravis, TAB 0 Refills Jd Guzman MD Aug 21, 2017 5:58 pm
== END 2017-08-21 13:54 | disposition home or self-care (01) | DRG 57 ==
LOC: NEPE 18:32 → NEDA 21:40 → N04A 08-17 00:27
PROVIDERS: ADMIT Family Medicine; ATTEND Family Medicine
PROC: 05HM33Z Insertion of Infusion Device into Right Internal Jugular Vein, Percutaneous Approach (ICD-10-PCS; 2017-08-18)
PROC: 30233K1 Transfusion of Nonautologous Frozen Plasma into Peripheral Vein, Percutaneous Approach (ICD-10-PCS; principal; 2017-08-19)
PROC: 6A551Z3 Pheresis of Plasma, Multiple (ICD-10-PCS; 2017-08-19)
DX: G70.01 Myasthenia gravis with (acute) exacerbation (principal); R13.10 Dysphagia, unspecified; I10 Essential (primary) hypertension; H91.93 Unspecified hearing loss, bilateral; E78.5 Hyperlipidemia, unspecified; M19.90 Unspecified osteoarthritis, unspecified site; R47.1 Dysarthria and anarthria; F41.9 Anxiety disorder, unspecified; Z92.3 Personal history of irradiation; Z85.46 Personal history of malignant neoplasm of prostate; Z85.038 Personal history of other malignant neoplasm of large intestine; Z85.05 Personal history of malignant neoplasm of liver
CPT/HCPCS: 36430; 36514; 36556; 71010; 76937; 77001; 80048; 80053; 82948; 83735; 84484; 85007; 85025; 85027; 85384; 85610; 85730; 86927; 93005; C1752; J1200; J1644; J2405; J2930; J7030; J7517; P9017

== ENCOUNTER 2017-08-27 05:22 | Emergency (ER) | payer MEDICARE ==
[~2017-08-27] VITALS: Ht 180.3 cm; Wt 82.0 kg
[~2017-08-27 05:22] MED LIST changes: +MYCO250 PO
[2017-08-27] MEDS ORDERED: SODIUM CHLOR 0.9% 1000 ML INJ 1,000 ML IV SCH (05:26)
[2017-08-27] MEDS ORDERED: SODIUM CHLORIDE 0.9% FLUSH 10 ML FLUSH IV FLUSH PRN (05:30)
[2017-08-27] MEDS ORDERED: ONDANSETRON HCL 4 MG/2 ML VIAL IVP ONE (05:30)
[2017-08-27 05:31] VITALS: BP 136/64; PULSE 69; RESP 16; TEMP 98.3; O2SAT 97
[2017-08-27 05:32] VITALS: RESP 16
--- NOTE | 2017-08-27 05:33 | PD ---
HPI Chief Complaint: GI complains Time Seen by Provider: 05:26 Travel History International Travel<30 days: No Contact w/Intl Traveler<30days: No Traveled to known affect area: No History of Present Illness HPI 86-year-old male complains of abdominal pain. Patient states that the pain started last night. Patient states the pain cramping pain localized to lower abdomen. Patient denies any pain radiation. Patient denies any fever chills. Patient denies any dysuria or frequency. Patient denies any vaginal discharge or bleeding. Patient status post partial liver resection secondary to liver cancer. Patient states the pain is much better now compared to last night. Patient has history of myasthenia gravis and has plasmapheresis recently. PFSH Past Medical History Anemia: Yes Arthritis: Yes Asthma: No Autoimmune Disease: Yes (MYASTHENIA GRAVIS) Blood Disorders: No Anxiety: No Depression: No Heart Rhythm Problems: Yes (reports having a murmur) Cancer: Yes (liver cancer, colon cancer, prostate cancer, cancer of spinal column) Cardiovascular Problems: Yes High Cholesterol: Yes Chemotherapy: Yes (6 months with liver cancer) Chest Pain: No Congestive Heart Failure: No COPD: No Diabetes: No Diminished Hearing: Yes (BILATERAL HEARING AIDS) Endocrine: No Gastrointestinal Disorders: Yes (COLON/LIVER CA) GERD: Yes Genitourinary: Yes Hiatal Hernia: Yes (REPAIRED X 2) Hypertension: No Immune Disorder: No Implanted Vascular Access Dvce: No Kidney Stones: No Musculoskeletal: Yes (Myasthenia Gravis) Neurologic: No Psychiatric: No Reproductive: No Respiratory: No Immunizations Current: Yes 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) Renal Failure: No Sleep Apnea: No Thyroid Disease: No Ulcer: No Past Surgical History Abdominal Surgery: Yes (colon resection, colon cx 1987 & 2007/removed half of liver/hernia repair) Eye Surgery: Yes (retina sx -left eye) Genitourinary Surgery: Yes (TURP 2008) Pacemaker: No Thoracic Surgery: Yes (LIVER RESECTION 2000) Tonsillectomy: Yes Other Surgery: Yes (HERNIA REPAIR JUN 2001, 2016) Social History Alcohol Use: No Tobacco Use: No Substance Use: No Allergies-Medications (Allergen,Severity, Reaction): Coded Allergies: Sulfa (Sulfonamide Antibiotics) (Unverified Allergy, Severe, Flushing, ) lorazepam (Unverified Allergy, Intermediate, Psychosis, 08/27/17) prochlorperazine (Unverified Allergy, Unknown, JITTERY, 08/27/17) Reported Meds & Prescriptions Reported Meds & Active Scripts Active Cellcept (Mycophenolate Mofetil) 250 Mg Cap 250 Mg PO DAILY@06 Docusate Sodium 100 Mg Cap 100 Mg PO BID Xanax (Alprazolam) 0.25 Mg Tab 0.25 Mg PO DAILY PRN Reported Milk of Magnesia Liq (Magnesium Hydroxide) 400 Mg/5 Ml Susp 30 Ml PO DIRECTED PRN 30ml every 3rd day if no regular BM Vitamin B-12 (Cyanocobalamin) 1,000 Mcg Tab 1,000 Mcg PO DAILY Mestinon (Pyridostigmine [place]) 60 Mg Tab 120 Mg PO TID Ensure Plus (Nutritional Supplements) 1 Liq Liq 1 Can PO DAILY Cyanocobalamin Inj (Cyanocobalamin) 1,000 Mcg/Ml Inj 1,000 Mcg IM MONTHLY Vitamin D3 (Cholecalciferol) 2,000 Unit Cap 2,000 Units PO DAILY Tums (Calcium Carbonate (Antacid)) 500 Mg Chew 1,000 Mg CHEW BID PRN Review of Systems General / Constitutional: No: Fever Eyes: No: Visual changes HENT: No: Headaches Cardiovascular: No: Chest Pain or Discomfort Respiratory: No: Shortness of Breath Gastrointestinal: Positive: Nausea, Abdominal Pain Genitourinary: No: Dysuria Musculoskeletal: No: Pain Skin: No Rash Neurologic: No: Weakness Psychiatric: No: Depression Endocrine: No: Polydipsia Hematologic/Lymphatic: No: Easy Bruising Physical Exam Narrative GENERAL: Well-nourished, well-developed patient. SKIN: Focused skin assessment warm/dry. HEAD: Normocephalic. EYES: No scleral icterus. No injection or drainage. NECK: Supple, trachea midline. No JVD or lymphadenopathy. CARDIOVASCULAR: Regular rate and rhythm without murmurs, gallops, or rubs. RESPIRATORY: Breath sounds equal bilaterally. No accessory muscle use. GASTROINTESTINAL: Abdomen soft, nondistended. Patient has mild tenderness and palpation lower abdomen. No rebound tenderness. No mass. MUSCULOSKELETAL: No cyanosis, or edema. BACK: Nontender without obvious deformity. No CVA tenderness. Neurologic exam normal. Data Data Last Documented VS Vital Signs Date Time Temp Pulse Resp B/P (MAP) Pulse Ox O2 Delivery O2 Flow Rate FiO2 08/27/17 05:32 16 08/27/17 05:31 98.3 69 136/64 (88) 97 Orders Orders Complete Blood Count With Diff (08/27/17 05:26) Comprehensive Metabolic Panel (08/27/17 05:26) Lipase (08/27/17 05:26) Prothrombin Time / Inr (Pt) (08/27/17 05:26) Act Partial Throm Time (Ptt) (08/27/17 05:26) Urinalysis - C+S If Indicated (08/27/17 05:26) Iv Access Insert/Monitor (08/27/17 05:26) Ecg Monitoring (08/27/17 05:26) Oximetry (08/27/17 05:26) Ondansetron Inj (Zofran Inj) (08/27/17 05:30) Sodium Chlor 0.9% 1000 Ml Inj (Ns 1000 M (08/27/17 05:26) Sodium Chloride 0.9% Flush (Ns Flush) (08/27/17 05:30) Ct Abd/Pel W/O Iv Contrast (08/27/17 05:26) Labs Laboratory Tests Test 08/27/17 05:40 08/27/17 05:45 White Blood Count 4.4 TH/MM3 Red Blood Count 3.50 MIL/MM3 Hemoglobin 10.5 GM/DL Hematocrit 31.9 % Mean Corpuscular Volume 91.3 FL Mean Corpuscular Hemoglobin 30.1 PG Mean Corpuscular Hemoglobin Concent 33.0 % Red Cell Distribution Width 14.4 % Platelet Count 121 TH/MM3 Mean Platelet Volume 8.4 FL Neutrophils (%) (Auto) 82.3 % Lymphocytes (%) (Auto) 4.8 % Monocytes (%) (Auto) 10.9 % Eosinophils (%) (Auto) 1.6 % Basophils (%) (Auto) 0.4 % Neutrophils # (Auto) 3.6 TH/MM3 Lymphocytes # (Auto) 0.2 TH/MM3 Monocytes # (Auto) 0.5 TH/MM3 Eosinophils # (Auto) 0.1 TH/MM3 Basophils # (Auto) 0.0 TH/MM3 CBC Comment DIFF FINAL Differential Comment Prothrombin Time 10.5 SEC Prothromb Time International Ratio 1.0 RATIO Activated Partial Thromboplast Time 23.7 SEC Blood Urea Nitrogen 22 MG/DL Creatinine 1.07 MG/DL Random Glucose 147 MG/DL Total Protein 6.6 GM/DL Albumin 3.6 GM/DL Calcium Level 9.0 MG/DL Alkaline Phosphatase 77 U/L Aspartate Amino Transf (AST/SGOT) 19 U/L Alanine Aminotransferase (ALT/SGPT) 24 U/L Total Bilirubin 0.7 MG/DL Sodium Level 139 MEQ/L Potassium Level 3.9 MEQ/L Chloride Level 104 MEQ/L Carbon Dioxide Level 30.3 MEQ/L Anion Gap 5 MEQ/L Estimat Glomerular Filtration Rate 65 ML/MIN Lipase 58 U/L Urine Color YELLOW Urine Turbidity CLEAR Urine pH 8.0 Urine Specific [place] 1.016 Urine Protein TRACE mg/dL Urine Glucose (UA) NEG mg/dL Urine Ketones NEG mg/dL Urine Occult Blood NEG Urine Nitrite NEG Urine Bilirubin NEG Urine Urobilinogen LESS THAN 2.0 MG/DL Urine Leukocyte Esterase NEG Urine RBC LESS THAN 1 /hpf Urine WBC 1 /hpf Microscopic Urinalysis Comment CULT NOT INDICATED MDM Medical Decision Making Medical Screen Exam Complete: Yes Emergency Medical Condition: Yes Medical Record Reviewed: Yes Interpretation(s) 6:[address] scan abdomen pelvis shows gastritis or duodenitis. CBC W BC 4.4. Hemoglobin 10.5 hematocrit 31.9. Platelet 121. 82 neutrophil. BUN 22. CMP otherwise within normal limit. UA is negative. Differential Diagnosis Differential diagnosis including UTI, pyelonephritis, nephrolithiasis, colitis, appendicitis, prostatitis. Narrative Course 86-year-old male with low abdominal pain. 7:02 AM. She is pain-free now. He wants to go home. Diagnosis Primary Impression: Abdominal pain Qualified Codes: R10.30 - Lower abdominal pain, unspecified Patient Instructions: General Instructions Additional Instructions: Follow-up with local physician. Return as needed. Med/Other Pt SpecificInfo: No Change to Meds Disposition: 01 DISCHARGE HOME Condition: Stable Gabriel Cruz MD Aug 27, 2017 05:33
[2017-08-27 05:51] LABS: AUTOMATED NEUTROPHIL # 3.6 TH/MM3 (1.8-7.7); BASOPHIL % 0.4 % (0.0-2.0); EOSINOPHIL # 0.1 TH/MM3 (0-0.4); EOSINOPHIL % 1.6 % (0.0-4.0); HEMATOCRIT 31.9 % (39.0-51.0); HEMOGLOBIN 10.5 GM/DL (13.0-17.0); LYMPH % 4.8 % (9.0-44.0); LYMPHOCYTE # 0.2 TH/MM3 (1.0-4.8); MEAN CELL VOLUME 91.3 FL (80.0-100.0); MEAN CORPUSCULAR HEMOGLOBIN 30.1 PG (27.0-34.0); MEAN PLATELET VOLUME 8.4 FL (7.0-11.0); MONO % 10.9 % (0.0-8.0); MONOCYTE # 0.5 TH/MM3 (0-0.9); NEUT % 82.3 % (16.0-70.0); PLATELET COUNT 121 TH/MM3 (150-450); RED CELL DISTRIBUTION WIDTH 14.4 % (11.6-17.2); WHITE BLOOD COUNT 4.4 TH/MM3 (4.0-11.0)
[2017-08-27 06:01] LABS: PROTHROMBIN TIME - PATIENT 10.5 SEC (9.8-11.6)
[2017-08-27 06:06] LABS: ALBUMIN 3.6 GM/DL (3.4-5.0); AST (GOT) 19 U/L (15-37); BICARBONATE 30.3 MEQ/L (21.0-32.0); BLOOD UREA NITROGEN 22 MG/DL (7-18); CHLORIDE 104 MEQ/L (98-107); CREATININE 1.07 MG/DL (0.60-1.30); GLOMERULAR FILTRATION RATE 65 ML/MIN (>89); GLUCOSE,RANDOM 147 MG/DL (74-106); LIPASE 58 U/L (73-393); SODIUM (NA) 139 MEQ/L (136-145)
[2017-08-27 06:09] LABS: ALKALINE PHOSPHATASE 77 U/L (45-117); ALT (GPT) 24 U/L (12-78); TOTAL BILIRUBIN ADULT 0.7 MG/DL (0.2-1.0); TOTAL PROTEIN 6.6 GM/DL (6.4-8.2)
[2017-08-27 06:16] LABS: BILIRUBIN, URINE NEG (NEG); BLOOD, URINE NEG (NEG); GLUCOSE,URINE NEG (NEG); KETONE, URINE NEG (NEG); NITRITE,URINE NEG (NEG); URINE COLOR YELLOW (YELLW/STRAW); URINE LEUKOCYTE ESTERASE NEG (NEG)
--- NOTE | 2017-08-27 06:54 | RADRPT ---
EXAM DATE/TIME: 08/27/2017 06:34 [facility] COMPARISON: CT ABDOMEN & PELVIS W CONTRAST, August 02, 2017, 2:07. CT ABDOMEN & PELVIS W/O CONTRAST, May 27, 2017, 3:59. INDICATIONS : Low abdominal pain. ORAL CONTRAST: No oral contrast ingested. RADIATION DOSE: 6.70 CTDIvol (mGy) MEDICAL HISTORY : Carcinoma, colon. Myocardial infarction. Metastatic disease.Carcinoma, liver; myasthenia gravis SURGICAL HISTORY : Colon resection. liver resection, TURP ENCOUNTER: Initial ACUITY: 1 day PAIN SCALE: 7/10 LOCATION: abdomen TECHNIQUE: Volumetric scanning of the abdomen and pelvis was performed. Using automated exposure control and ad justment of the mA and/or kV according to patient size, radiation dose was kept as low as reasonably achievable to obtain optimal diagnostic quality images. DICOM format image data is available electro nically for review and comparison. FINDINGS: No acute solid organ abnormality demonstrated. Surgical changes are again noted of the liver. Mild duodenal and distal gastric wall thickening noted. Moderate amount of stool throughout the colon. Patient has had previous colon surgery. No small bowel distention. There is a small umbilical hernia containing a partial dissection of transverse colon, s eries 2 image 44. This does not appear to be acutely contributory and is similar to before. Right ing uinal hernia repair changes are again noted without a recurrent defect. [id number] right and small left pleural effusions are seen of the visualized lung bases, both larger than before. No acute bony abnormality demonstrated. Degenerative changes are again seen in the spine. CONCLUSION: 1. Suspected mild gastritis and/or duodenitis in the proper clinical setting. 2. Moderate stool throughout the colon. Nonobstructive pattern. 3. Small umbilical hernia containing a partial section of transverse colon similar to before and does not appear to be of acute clinical significance. 4. Right inguinal hernia repair without recurrence. 5. Small to moderate right and small left pleural effusions are partly seen. Jose David Clark MD on August 27, 2017 at 6:47 Board Certified Radiologist. This report was verified electronically.
[2017-09-06] MEDS ORDERED: MYCO500 PO (15:24)
== END 2017-08-27 07:43 | disposition home or self-care (01) ==
LOC: NED 05:22 → NEPE 07:43
DX: R10.30 Lower abdominal pain, unspecified (principal); G70.00 Myasthenia gravis without (acute) exacerbation
CPT/HCPCS: 74176; 80053; 81001; 83690; 85025; 85610; 85730; 96374; 99284; J2405; J7030

== ENCOUNTER → 2017-10-11 | Outpatient (CLI) | payer MEDICARE ==
[~2017-10-11] MED LIST changes: +CEFU1TAB20 PO; -MYCO250 PO; +MYCO500 PO
[2017-10-11 11:57] LABS: AUTOMATED NEUTROPHIL # 2.4 TH/MM3 (1.8-7.7); BASOPHIL % 0.8 % (0.0-2.0); EOSINOPHIL # 0.1 TH/MM3 (0-0.4); EOSINOPHIL % 2.9 % (0.0-4.0); HEMATOCRIT 30.3 % (39.0-51.0); HEMOGLOBIN 10.1 GM/DL (13.0-17.0); LYMPHOCYTE # 0.3 TH/MM3 (1.0-4.8); MEAN CELL VOLUME 84.5 FL (80.0-100.0); MEAN CORPUSCULAR HEMOGLOBIN 28.1 PG (27.0-34.0); MEAN CORPUSCULAR HGB CONC 33.3 % (32.0-36.0); MEAN PLATELET VOLUME 8.1 FL (7.0-11.0); MONO % 12.4 % (0.0-8.0); MONOCYTE # 0.4 TH/MM3 (0-0.9); NEUT % 73.9 % (16.0-70.0); PLATELET COUNT 162 TH/MM3 (150-450); RED BLOOD COUNT 3.59 MIL/MM3 (4.50-5.90); RED CELL DISTRIBUTION WIDTH 15.1 % (11.6-17.2); WHITE BLOOD COUNT 3.3 TH/MM3 (4.0-11.0)
[2017-10-11 12:10] LABS: ALBUMIN 3.7 GM/DL (3.4-5.0); AST (GOT) 17 U/L (15-37); BLOOD UREA NITROGEN 29 MG/DL (7-18); CHLORIDE 104 MEQ/L (98-107); CREATININE 1.14 MG/DL (0.60-1.30); DIRECT BILIRUBIN ADULT 0.2 MG/DL (0.0-0.2); GLOMERULAR FILTRATION RATE 61 ML/MIN (>89); GLUCOSE,RANDOM 106 MG/DL (74-106); SODIUM (NA) 138 MEQ/L (136-145)
[2017-10-11 12:11] LABS: ALT (GPT) 18 U/L (12-78)
[2017-10-11 12:13] LABS: ALKALINE PHOSPHATASE 95 U/L (45-117); TOTAL BILIRUBIN ADULT 0.7 MG/DL (0.2-1.0); TOTAL PROTEIN 6.8 GM/DL (6.4-8.2)
== END ==
LOC: ELAB 10:22
PROVIDERS: ATTEND Specialist
DX: G93.3 Postviral and related fatigue syndromes (principal); R94.6 Abnormal results of thyroid function studies; E88.9 Metabolic disorder, unspecified
CPT/HCPCS: 36415; 80053; 82248; 85025

== ENCOUNTER 2017-10-29 11:07 | Emergency (ER) | payer MEDICARE ==
[~2017-10-29] VITALS: Ht 180.3 cm; Wt 72.0 kg
[2017-10-29 11:15] VITALS: BP 185/82; PULSE 83; RESP 21; TEMP 98.5; O2SAT 95
[2017-10-29 11:22] VITALS: BP 185/82; PULSE 78; RESP 21; TEMP 98.5; O2SAT 96
[2017-10-29] MEDS ORDERED: OCUVTAB4 PO (11:27)
[2017-10-29] MEDS ORDERED: LUPR11.22 IM (11:27)
[2017-10-29 11:28] VITALS: BP 185/82; PULSE 79; RESP 21; TEMP 98.5; O2SAT 96
[2017-10-29] MEDS ORDERED: SODIUM CHLORID 0.9% 500 ML INJ 500 ML IV ONE (11:30)
[2017-10-29] MEDS ORDERED: RESP: ALBUTEROL 2.5 MG/3 ML NEB (SCH) INH ONE (11:30)
--- NOTE | 2017-10-29 11:35 | PD ---
HPI Chief Complaint: Cold / Flu Symptoms Time Seen by Provider: 11:12 Travel History International Travel<30 days: No Contact w/Intl Traveler<30days: No Traveled to known affect area: No History of Present Illness HPI 87-year-old male with history of myasthenia gravis, prostate cancer with intermittent Lupron therapy, presents emergency department from home complaining of cough, congestion since Tuesday. Patient states that he has had productive cough with yellow sputum and is concerned about a developing infection. Patient says he called his physician, Dr. Doherty, who prescribed cefepime Tuesday. Patient states he has been taking this medication but is not feeling better. Patient denies shortness of breath or chest pain. Denies abdominal pain, unusual weakness, fever, chills. Says he has chronic diarrhea with his medication CellCept. Patient says he feels mildly nauseous today. EVAC states that his temperatures was over 101, blood sugar 149, SaO2 95-97% RA. Says that he has plasmapheresis approximately 2 times a year but he has had this more frequently as he has had increasing weakness. Says his weakness located in the tongue and jaw but does not feel this is worse today. He follows Dr. Mcrae for his plasma plasmapheresis and prior history of prostate and colon cancer. His neurologist is Dr. Loyola. [facility] Past Medical History Anemia: Yes Arthritis: Yes Asthma: No Autoimmune Disease: Yes (MYASTHENIA GRAVIS) Blood Disorders: No Anxiety: No Depression: No Heart Rhythm Problems: Yes (reports having a murmur) Cancer: Yes (liver cancer, colon cancer, prostate cancer, cancer of spinal column) Cardiovascular Problems: Yes High Cholesterol: Yes Chemotherapy: Yes Chest Pain: No Congestive Heart Failure: No COPD: No Diabetes: No Diminished Hearing: Yes (BILATERAL HEARING AIDS) Endocrine: No Gastrointestinal Disorders: Yes (COLON/LIVER CA) GERD: Yes Genitourinary: Yes Hiatal Hernia: Yes (REPAIRED X 2) Hypertension: No Immune Disorder: No Implanted Vascular Access Dvce: No Kidney Stones: No Musculoskeletal: Yes (Myasthenia Gravis) Neurologic: No Psychiatric: No Reproductive: No Respiratory: Yes Immunizations Current: Yes 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) Renal Failure: No Sleep Apnea: No Thyroid Disease: No Ulcer: No Tetanus Vaccination: < 5 Years Past Surgical History Abdominal Surgery: Yes (colon resection, colon cx 1987 & 2007/removed half of liver/hernia repair) Eye Surgery: Yes (retina sx -left eye) Genitourinary Surgery: Yes (TURP 2008) Pacemaker: No Thoracic Surgery: Yes (LIVER RESECTION 2000) Tonsillectomy: Yes Other Surgery: Yes (HERNIA REPAIR JUN 2001, 2016) Social History Alcohol Use: No Tobacco Use: No Substance Use: No Allergies-Medications (Allergen,Severity, Reaction): Coded Allergies: Sulfa (Sulfonamide Antibiotics) (Verified Allergy, Severe, Flushing, ) lorazepam (Verified Allergy, Intermediate, Psychosis, 10/29/17) prochlorperazine (Verified Allergy, Unknown, JITTERY, 10/29/17) Reported Meds & Prescriptions Reported Meds & Active Scripts Active Dexamethasone 4 Mg Tab 4 Mg PO DAILY 5 Days Levofloxacin 750 Mg Tablet 750 Mg PO DAILY 5 Days Cefuroxime (Cefuroxime Axetil) 500 Mg Tab 500 Mg PO BID Docusate Sodium 100 Mg Cap 100 Mg PO BID Xanax (Alprazolam) 0.25 Mg Tab 0.25 Mg PO DAILY PRN Reported Lupron Depot Inj Kit (Leuprolide (3 Month) Inj Kit) 11.25 Mg Kit 11.25 Mg IM Q90D Preservision Areds (Multiple Vitamins W/ Minerals) 1 Tab 1 Tab PO BID Cellcept (Mycophenolate Mofetil) 500 Mg Tab 500 Mg PO DAILY Milk of Magnesia Liq (Magnesium Hydroxide) 400 Mg/5 Ml Susp 30 Ml PO DIRECTED PRN 30ml every 3rd day if no regular BM Mestinon (Pyridostigmine [place]) 60 Mg Tab 120 Mg PO TID Ensure Plus (Nutritional Supplements) 1 Liq Liq 1 Can PO DAILY Cyanocobalamin Inj (Cyanocobalamin) 1,000 Mcg/Ml Inj 1,000 Mcg IM MONTHLY Vitamin D3 (Cholecalciferol) 2,000 Unit Cap 2,000 Units PO DAILY Review of Systems Except as stated in HPI: all other systems reviewed are Neg Physical Exam Narrative GENERAL: WD, WN in NAD, resting comfortably in bed SKIN: Focused skin assessment warm/dry. No rashes HEAD: Atraumatic. Normocephalic. EYES: Pupils equal and round. No scleral icterus. No injection or drainage. ENT: No nasal bleeding or discharge. Mucous membranes pink and moist. NECK: Trachea midline. No JVD. CARDIOVASCULAR: Regular rate and rhythm. No murmur appreciated. RESPIRATORY: No accessory muscle use. faint rhonchi left lower lobes. GASTROINTESTINAL: Abdomen soft, non-tender, nondistended. MUSCULOSKELETAL: No obvious deformities. No clubbing. No cyanosis. No edema. NEUROLOGICAL: Awake and alert. No obvious cranial nerve deficits. Motor grossly within normal limits. slightly slurred speech. PSYCHIATRIC: Appropriate mood and affect; insight and judgment normal. Data Data Last Documented VS Vital Signs Date Time Temp Pulse Resp B/P (MAP) Pulse Ox O2 Delivery O2 Flow Rate FiO2 10/29/17 14:25 82 19 132/73 (92) 95 10/29/17 11:28 98.5 Room Air Orders Orders Complete Blood Count With Diff (10/29/17 11:21) Comprehensive Metabolic Panel (10/29/17 11:21) Act Partial Throm Time (Ptt) (10/29/17 11:21) Prothrombin Time / Inr (Pt) (10/29/17 11:21) Magnesium (Mg) (10/29/17 11:21) Urinalysis - C+S If Indicated (10/29/17 11:21) Influenzae A/B Antigen (10/29/17 11:21) Blood Culture (10/29/17 11:21) Iv Access Insert/Monitor (10/29/17 11:21) Ecg Monitoring (10/29/17 11:21) Oximetry (10/29/17 11:21) Chest, Pa & Lat (10/29/17 11:21) Albuterol Neb (Albuterol Neb) (10/29/17 11:30) Sodium Chlorid 0.9% 500 Ml Inj (Ns 500 M (10/29/17 11:30) Lactic Acid Sepsis Protocol (10/29/17 11:21) Dexamethasone Inj (Decadron Inj) (10/29/17 11:45) Levofloxacin 750 Mg Premix Inj (Levaquin (10/29/17 11:45) Ed Discharge Order (10/29/17 13:53) Labs Laboratory Tests Test 10/29/17 11:40 10/29/17 12:40 White Blood Count 5.6 TH/MM3 Red Blood Count 3.98 MIL/MM3 Hemoglobin 10.7 GM/DL Hematocrit 32.7 % Mean Corpuscular Volume 82.3 FL Mean Corpuscular Hemoglobin 26.8 PG Mean Corpuscular Hemoglobin Concent 32.6 % Red Cell Distribution Width 15.4 % Platelet Count 117 TH/MM3 Mean Platelet Volume 8.0 FL Neutrophils (%) (Auto) 83.9 % Lymphocytes (%) (Auto) 2.9 % Monocytes (%) (Auto) 12.9 % Eosinophils (%) (Auto) 0.1 % Basophils (%) (Auto) 0.2 % Neutrophils # (Auto) 4.7 TH/MM3 Lymphocytes # (Auto) 0.2 TH/MM3 Monocytes # (Auto) 0.7 TH/MM3 Eosinophils # (Auto) 0.0 TH/MM3 Basophils # (Auto) 0.0 TH/MM3 CBC Comment DIFF FINAL Differential Comment Prothrombin Time 11.7 SEC Prothromb Time International Ratio 1.2 RATIO Activated Partial Thromboplast Time 24.8 SEC Blood Urea Nitrogen 14 MG/DL Creatinine 1.06 MG/DL Random Glucose 130 MG/DL Total Protein 6.9 GM/DL Albumin 3.7 GM/DL Calcium Level 8.9 MG/DL Magnesium Level 1.8 MG/DL Alkaline Phosphatase 88 U/L Aspartate Amino Transf (AST/SGOT) 16 U/L Alanine Aminotransferase (ALT/SGPT) 17 U/L Total Bilirubin 1.5 MG/DL Sodium Level 136 MEQ/L Potassium Level 3.7 MEQ/L Chloride Level 102 MEQ/L Carbon Dioxide Level 31.1 MEQ/L Anion Gap 3 MEQ/L Estimat Glomerular Filtration Rate 66 ML/MIN Lactic Acid Level 0.9 mmol/L Urine Color YELLOW Urine Turbidity CLEAR Urine pH 6.5 Urine Specific [place] 1.017 Urine Protein 30 mg/dL Urine Glucose (UA) NEG mg/dL Urine Ketones NEG mg/dL Urine Occult Blood NEG Urine Nitrite NEG Urine Bilirubin NEG Urine Urobilinogen LESS THAN 2.0 MG/DL Urine Leukocyte Esterase NEG Urine RBC 3 /hpf Urine Hyaline Casts 3 /lpf Urine Mucus FEW /lpf Microscopic Urinalysis Comment CULT NOT INDICATED MDM Medical Decision Making Medical Screen Exam Complete: Yes Emergency Medical Condition: Yes Differential Diagnosis Pneumonia, bronchitis, influenza, upper respiratory infection Narrative Course 87-year-old male with a history of myasthenia gravis comes in concern of a productive cough with yellow sputum since Tuesday. Says he was prescribed an antibiotic by his primary care physician states he is not improved. Labs and imaging studies ordered. Albuterol neb 1 ordered. Dexamethasone 4 mg IV. Levaquin 750mg IV. 500C NS bolus administered. CBC & BMP Diagram 10/29/17 11:40 Total Protein 6.9, Albumin 3.7, Calcium Level 8.9, Magnesium Level 1.8, Alkaline Phosphatase 88, Aspartate Amino Transf (AST/SGOT) 16, Alanine Aminotransferase (ALT/SGPT) 17, Total Bilirubin 1.5 H Urinalysis unremarkable. Lactic 0.9. Last Impressions Chest X-Ray 10/29/17 1121 Signed Impressions: Service Date/Time: Tuesday, October 29, 2017 12:15 - CONCLUSION: Mild interstitial prominence. No acute infiltrates. No interval change since July. Filiberto Claros MD Upon reassessment, patient states that he feels fine and is happy that his labs and imaging appear stable. Because of patient's history of myasthenia gravis and the concern for decline with infection, will prescribe outpatient antibiotics with dexamethasone. I advised that he should return to his finance vice president/oncologist and primary care physician for further evaluation. Patient states understanding and will comply. Advised to return to the emergency department for worsening or persistent symptoms. Diagnosis Primary Impression: Bronchitis Referrals: Oncologist Primary Care Physician Additional Instructions: Follow up with your primary care physician within 2-3 days. If your symptoms persist or worsen, return to the emergency department. Start your prescribed medication tomorrow. Scripts Dexamethasone (Dexamethasone) 4 Mg Tab 4 MG PO DAILY for 5 Days, #5 TAB 0 Refills Prov: Elkin Mclean MD 10/29/17 Levofloxacin (Levofloxacin) 750 Mg Tablet 750 MG PO DAILY for Infection for 5 Days, #5 TAB 0 Refills Prov: Elkin Mclean MD 10/29/17 Disposition: 01 DISCHARGE HOME Condition: Stable Laurence Villagomez Oct 29, 2017 11:35
[2017-10-29] MEDS ORDERED: LEVOFLOXACIN 750 MG PREMIX INJ 150 ML IV ONE (11:45)
[2017-10-29] MEDS ORDERED: DEXAMETHASONE SOD PHOS 4 MG/ML VIAL IV PUSH ONE (11:45)
[2017-10-29 12:10] LABS: AUTOMATED NEUTROPHIL # 4.7 TH/MM3 (1.8-7.7); BASOPHIL % 0.2 % (0.0-2.0); EOSINOPHIL % 0.1 % (0.0-4.0); HEMATOCRIT 32.7 % (39.0-51.0); HEMOGLOBIN 10.7 GM/DL (13.0-17.0); LYMPH % 2.9 % (9.0-44.0); LYMPHOCYTE # 0.2 TH/MM3 (1.0-4.8); MEAN CELL VOLUME 82.3 FL (80.0-100.0); MEAN CORPUSCULAR HEMOGLOBIN 26.8 PG (27.0-34.0); MEAN CORPUSCULAR HGB CONC 32.6 % (32.0-36.0); MONO % 12.9 % (0.0-8.0); MONOCYTE # 0.7 TH/MM3 (0-0.9); NEUT % 83.9 % (16.0-70.0); PLATELET COUNT 117 TH/MM3 (150-450); RED BLOOD COUNT 3.98 MIL/MM3 (4.50-5.90); RED CELL DISTRIBUTION WIDTH 15.4 % (11.6-17.2); WHITE BLOOD COUNT 5.6 TH/MM3 (4.0-11.0)
[2017-10-29 12:20] LABS: INTERNATIONAL NORMALIZED RATIO 1.2 RATIO; PROTHROMBIN TIME - PATIENT 11.7 SEC (9.8-11.6)
[2017-10-29 12:31] LABS: ALBUMIN 3.7 GM/DL (3.4-5.0); ALT (GPT) 17 U/L (12-78); AST (GOT) 16 U/L (15-37); BICARBONATE 31.1 MEQ/L (21.0-32.0); BLOOD UREA NITROGEN 14 MG/DL (7-18); CALCIUM 8.9 MG/DL (8.5-10.1); CHLORIDE 102 MEQ/L (98-107); CREATININE 1.06 MG/DL (0.60-1.30); GLOMERULAR FILTRATION RATE 66 ML/MIN (>89); GLUCOSE,RANDOM 130 MG/DL (74-106); MAGNESIUM 1.8 MG/DL (1.5-2.5); SODIUM (NA) 136 MEQ/L (136-145)
[2017-10-29 12:34] LABS: ALKALINE PHOSPHATASE 88 U/L (45-117); TOTAL BILIRUBIN ADULT 1.5 MG/DL (0.2-1.0); TOTAL PROTEIN 6.9 GM/DL (6.4-8.2)
--- NOTE | 2017-10-29 12:34 | RADRPT ---
EXAM DATE/TIME: 10/29/2017 12:15 [facility] COMPARISON: CHEST SINGLE AP, August 16, 2017, 19:52. INDICATIONS : Shortness of breath. MEDICAL HISTORY : Carcinoma, prostatic. Hiatal hernia. Carcinoma, colon. SURGICAL HISTORY : None. ENCOUNTER: Initial ACUITY: 1 day PAIN SCORE: 0/10 LOCATION: Bilateral chest FINDINGS: PA and lateral views of the chest demonstrate some blunting right costophrenic angle, unchanged. Mild interstitial prominence in the lungs. No focal infiltrate. Aorta is mildly tortuous. Some increased kyphosis of the thoracic spine with fusion of the anterior longitudinal ligament. The cardiomediasti nal contours are unremarkable. Osseous structures are intact. CONCLUSION: Mild interstitial prominence. No acute infiltrates. No interval change since July. Filiberto Claros MD on October 29, 2017 at 12:32 Board Certified Radiologist. This report was verified electronically.
[2017-10-29 13:31] LABS: BILIRUBIN, URINE NEG (NEG); BLOOD, URINE NEG (NEG); GLUCOSE,URINE NEG (NEG); HYALINE CAST, URINE 3 /lpf (RARE); KETONE, URINE NEG (NEG); MUCUS URINE FEW /lpf (OCC); NITRITE,URINE NEG (NEG); PH, URINE 6.5 (5.0-8.5); URINE COLOR YELLOW (YELLW/STRAW); URINE LEUKOCYTE ESTERASE NEG (NEG)
[2017-10-29] MEDS ORDERED: LEVO750T3 PO (13:52)
[2017-10-29] MEDS ORDERED: DEXA4TAB PO (13:52)
[2017-10-29 14:25] VITALS: BP 132/73
== END 2017-10-29 15:47 | disposition home or self-care (01) ==
LOC: NEPC 11:07
DX: J40 Bronchitis, not specified as acute or chronic (principal); G70.00 Myasthenia gravis without (acute) exacerbation; R19.7 Diarrhea, unspecified; R11.0 Nausea; M62.81 Muscle weakness (generalized); D64.9 Anemia, unspecified; M19.90 Unspecified osteoarthritis, unspecified site; E78.00 Pure hypercholesterolemia, unspecified; Z79.899 Other long term (current) drug therapy
CPT/HCPCS: 71046; 80053; 81001; 83605; 83735; 85025; 85610; 85730; 87040; 87205; 87804; 94664; 96361; 96365; 96375; 99284; J1100; J1956; J7040; J7613

== ENCOUNTER → 2017-12-07 | Outpatient (CLI) | payer MEDICARE ==
[~2017-12-07] MED LIST changes: +DEXA4TAB PO; +LEVO750T3 PO; +LUPR11.22 IM; +OCUVTAB4 PO; -TUMS500C CHEW; -VITA10002 PO
[2017-12-07 14:42] LABS: AUTOMATED NEUTROPHIL # 2.2 TH/MM3 (1.8-7.7); EOSINOPHIL # 0.1 TH/MM3 (0-0.4); HEMATOCRIT 28.7 % (39.0-51.0); HEMOGLOBIN 9.1 GM/DL (13.0-17.0); LYMPH % 11.1 % (9.0-44.0); LYMPHOCYTE # 0.3 TH/MM3 (1.0-4.8); MEAN CELL VOLUME 81.5 FL (80.0-100.0); MEAN CORPUSCULAR HEMOGLOBIN 25.7 PG (27.0-34.0); MEAN CORPUSCULAR HGB CONC 31.5 % (32.0-36.0); MEAN PLATELET VOLUME 8.2 FL (7.0-11.0); MONO % 12.5 % (0.0-8.0); MONOCYTE # 0.4 TH/MM3 (0-0.9); NEUT % 72.4 % (16.0-70.0); PLATELET COUNT 173 TH/MM3 (150-450); RED BLOOD COUNT 3.53 MIL/MM3 (4.50-5.90); RED CELL DISTRIBUTION WIDTH 17.2 % (11.6-17.2); WHITE BLOOD COUNT 3.1 TH/MM3 (4.0-11.0)
[2017-12-07 14:55] LABS: ALBUMIN 3.7 GM/DL (3.4-5.0); ALT (GPT) 25 U/L (12-78); AST (GOT) 20 U/L (15-37); BICARBONATE 30.4 MEQ/L (21.0-32.0); BLOOD UREA NITROGEN 28 MG/DL (7-18); CALCIUM 9.1 MG/DL (8.5-10.1); CHLORIDE 106 MEQ/L (98-107); CREATININE 1.04 MG/DL (0.60-1.30); DIRECT BILIRUBIN ADULT 0.3 MG/DL (0.0-0.2); GLOMERULAR FILTRATION RATE 67 ML/MIN (>89); GLUCOSE,RANDOM 97 MG/DL (74-106); SODIUM (NA) 141 MEQ/L (136-145)
[2017-12-07 14:57] LABS: ALKALINE PHOSPHATASE 81 U/L (45-117); TOTAL BILIRUBIN ADULT 0.9 MG/DL (0.2-1.0); TOTAL PROTEIN 6.7 GM/DL (6.4-8.2)
== END ==
LOC: ELAB 09:54
PROVIDERS: ATTEND Specialist
DX: G70.01 Myasthenia gravis with (acute) exacerbation (principal); G93.3 Postviral and related fatigue syndromes; R94.5 Abnormal results of liver function studies; E88.9 Metabolic disorder, unspecified; R79.82 Elevated C-reactive protein (CRP)
CPT/HCPCS: 36415; 80053; 82248; 82550; 85025

== ENCOUNTER → 2017-12-30 | Outpatient (CLI) | payer MEDICARE ==
[2017-12-30 13:08] LABS: ALBUMIN 3.7 GM/DL (3.4-5.0); AUTOMATED NEUTROPHIL # 2.3 TH/MM3 (1.8-7.7); BASOPHIL % 0.8 % (0.0-2.0); BICARBONATE 28.7 MEQ/L (21.0-32.0); BLOOD UREA NITROGEN 28 MG/DL (7-18); CHLORIDE 104 MEQ/L (98-107); CREATININE 1.18 MG/DL (0.60-1.30); EOSINOPHIL # 0.1 TH/MM3 (0-0.4); EOSINOPHIL % 3.3 % (0.0-4.0); GLOMERULAR FILTRATION RATE 58 ML/MIN (>89); GLUCOSE,RANDOM 92 MG/DL (74-106); HEMATOCRIT 27.3 % (39.0-51.0); HEMOGLOBIN 8.6 GM/DL (13.0-17.0); LYMPH % 9.8 % (9.0-44.0); LYMPHOCYTE # 0.3 TH/MM3 (1.0-4.8); MEAN CELL VOLUME 79.8 FL (80.0-100.0); MEAN CORPUSCULAR HEMOGLOBIN 25.2 PG (27.0-34.0); MEAN CORPUSCULAR HGB CONC 31.6 % (32.0-36.0); MEAN PLATELET VOLUME 8.3 FL (7.0-11.0); MONO % 13.1 % (0.0-8.0); MONOCYTE # 0.4 TH/MM3 (0-0.9); PLATELET COUNT 155 TH/MM3 (150-450); RED BLOOD COUNT 3.42 MIL/MM3 (4.50-5.90); SODIUM (NA) 140 MEQ/L (136-145); WHITE BLOOD COUNT 3.1 TH/MM3 (4.0-11.0)
[2017-12-30 13:09] LABS: AST (GOT) 15 U/L (15-37); DIRECT BILIRUBIN ADULT 0.2 MG/DL (0.0-0.2)
[2017-12-30 13:12] LABS: ALKALINE PHOSPHATASE 74 U/L (45-117); ALT (GPT) 18 U/L (12-78); TOTAL BILIRUBIN ADULT 0.8 MG/DL (0.2-1.0); TOTAL PROTEIN 6.5 GM/DL (6.4-8.2)
== END ==
LOC: ELAB 10:01
PROVIDERS: ATTEND Specialist
DX: R68.89 Other general symptoms and signs (principal); R79.89 Other specified abnormal findings of blood chemistry; R94.5 Abnormal results of liver function studies
CPT/HCPCS: 36415; 80053; 82248; 85025

== ENCOUNTER 2018-02-11 13:05 | Inpatient (IN) | payer MEDICARE ==
[~2018-02-11] VITALS: Ht 180.3 cm; Wt 75.0 kg
[2018-02-11] VITALS (8 sets, daily range): BP systolic 150–201; BP diastolic 68–90; PULSE 61–74; RESP 14–20; TEMP 97.5–98.8; O2SAT 94–97
--- NOTE | 2018-02-11 14:05 | RADRPT ---
EXAM DATE: 02/11/2018 2:01 PM EDT AGE/SEX: 87 years / Male INDICATIONS: Short of breath CLINICAL DATA: This is the patient's initial encounter. Patient reports that signs and symptoms have been present for 1 day and indicates a pain score of 0/10. MEDICAL/SURGICAL HISTORY: Carcinoma, colon. Carcinoma, liver None. COMPARISON: [facility] [place], CHEST PA & LAT, 10/29/2017. . FINDINGS: There is a small right effusion and trace left pleural fluid. Heart size upper limits normal. Tortuou s aorta. Basilar atelectasis. No pneumothorax. CONCLUSION: Small bilateral pleural effusions, right greater than left with basilar atelectasis. No significant p ulmonary edema identified. Electronically signed by: Vamshi Ellis MD 02/11/2018 2:03 PM EDT
[2018-02-11 14:07] LABS: AUTOMATED NEUTROPHIL # 3.2 TH/MM3 (1.8-7.7); BASOPHIL % 0.9 % (0.0-2.0); EOSINOPHIL # 0.1 TH/MM3 (0-0.4); EOSINOPHIL % 1.6 % (0.0-4.0); HEMOGLOBIN 11.6 GM/DL (13.0-17.0); LYMPHOCYTE # 0.4 TH/MM3 (1.0-4.8); MEAN CELL VOLUME 77.2 FL (80.0-100.0); MEAN CORPUSCULAR HEMOGLOBIN 24.9 PG (27.0-34.0); MEAN CORPUSCULAR HGB CONC 32.2 % (32.0-36.0); MEAN PLATELET VOLUME 7.8 FL (7.0-11.0); MONO % 15.3 % (0.0-8.0); MONOCYTE # 0.7 TH/MM3 (0-0.9); NEUT % 74.2 % (16.0-70.0); PLATELET COUNT 163 TH/MM3 (150-450); RED BLOOD COUNT 4.66 MIL/MM3 (4.50-5.90); RED CELL DISTRIBUTION WIDTH 18.8 % (11.6-17.2); WHITE BLOOD COUNT 4.4 TH/MM3 (4.0-11.0)
[2018-02-11 14:22] LABS: ALBUMIN 4.2 GM/DL (3.4-5.0); AST (GOT) 16 U/L (15-37); BICARBONATE 27.2 MEQ/L (21.0-32.0); BLOOD UREA NITROGEN 21 MG/DL (7-18); CALCIUM 9.5 MG/DL (8.5-10.1); CHLORIDE 102 MEQ/L (98-107); GLOMERULAR FILTRATION RATE 57 ML/MIN (>89); GLUCOSE,RANDOM 111 MG/DL (74-106); MAGNESIUM 2.1 MG/DL (1.5-2.5); SODIUM (NA) 138 MEQ/L (136-145)
[2018-02-11 14:23] LABS: ALT (GPT) 19 U/L (12-78)
[2018-02-11 14:25] LABS: ALKALINE PHOSPHATASE 92 U/L (45-117); TOTAL BILIRUBIN ADULT 1.2 MG/DL (0.2-1.0); TOTAL PROTEIN 7.4 GM/DL (6.4-8.2)
[2018-02-11] MEDS ORDERED: IOHEXOL 350 MG/ML 10 ML VIAL (for RAD DIAG) IVCONTRAST ONE (17:09)
--- NOTE | 2018-02-11 17:20 | PD ---
HPI Chief Complaint: Respiratory Symptoms Time Seen by Provider: 13:33 Travel History International Travel<30 days: No Contact w/Intl Traveler<30days: No Traveled to known affect area: No History of Present Illness HPI 87-year-old male that presents to the ED for evaluation of worsening cold-like symptoms. Patient has a history of COPD as well as history of cancer in the past. Patient apparently had a blood transfusion done about a week ago by his oncologist for anemia. Patient has had chemo and radiation in the past but nothing recently. He states that since Tuesday patient has been having cold- like symptoms with congestion. Per patient the symptoms progressed and his doctor Dr. mitchell recommended trial of antibiotics. Today the symptoms are not improving with antibiotic and he went to an urgent care and did an x-ray that was concerning for possible pneumonia. Because of the patient's antibiotic intake and no feeling better the recommended that he comes here for possible IV antibiotics. Per the chest x-ray read that they did at the facility it showed that the patient had probable pleural effusions noticeable on the left. Patient overall does deny any shortness of breath or chest pain. Per patient his main concern is the coughing that is progressively getting worse especially at night. He does have a history of myasthenia gravis as well. Per patient he has been compliant with antibiotics. Allergy to different medications. PFSH Past Medical History Anemia: Yes Arthritis: Yes Asthma: No Autoimmune Disease: Yes (MYASTHENIA GRAVIS) Blood Disorders: No Anxiety: No Depression: No Heart Rhythm Problems: Yes (reports having a murmur) Cancer: Yes (liver cancer, colon cancer, prostate cancer, cancer of spinal column) Cardiovascular Problems: Yes High Cholesterol: Yes Chemotherapy: Yes Chest Pain: No Congestive Heart Failure: No COPD: No Diabetes: No Diminished Hearing: Yes (BILATERAL HEARING AIDS) Endocrine: No Gastrointestinal Disorders: Yes (COLON/LIVER CA) GERD: Yes Genitourinary: Yes Hiatal Hernia: Yes (REPAIRED X 2) Hypertension: No Immune Disorder: No Implanted Vascular Access Dvce: No Kidney Stones: No Musculoskeletal: Yes (Myasthenia Gravis) Neurologic: No Psychiatric: No Reproductive: No Respiratory: Yes Immunizations Current: Yes 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) Renal Failure: No Sleep Apnea: No Thyroid Disease: No Ulcer: No Past Surgical History Abdominal Surgery: Yes (colon resection, colon cx 1987 & 2007/removed half of liver/hernia repair) Eye Surgery: Yes (retina sx -left eye) Genitourinary Surgery: Yes (TURP 2009) Pacemaker: No Thoracic Surgery: Yes (LIVER RESECTION 2000) Tonsillectomy: Yes Other Surgery: Yes (HERNIA REPAIR JUN 2001, 2016) Social History Alcohol Use: No Tobacco Use: No Substance Use: No Allergies-Medications (Allergen,Severity, Reaction): Coded Allergies: Sulfa (Sulfonamide Antibiotics) (Verified Allergy, Severe, Flushing, ) lorazepam (Verified Allergy, Intermediate, Psychosis, 02/11/18) prochlorperazine (Verified Allergy, Unknown, JITTERY, 02/11/18) Reported Meds & Prescriptions Reported Meds & Active Scripts Active Cefuroxime (Cefuroxime Axetil) 500 Mg Tab 500 Mg PO BID Docusate Sodium 100 Mg Cap 100 Mg PO BID Xanax (Alprazolam) 0.25 Mg Tab 0.25 Mg PO DAILY PRN Reported Lupron Depot Inj Kit (Leuprolide (3 Month) Inj Kit) 11.25 Mg Kit 11.25 Mg IM Q90D Preservision Areds (Multiple Vitamins W/ Minerals) 1 Tab 1 Tab PO BID Cellcept (Mycophenolate Mofetil) 500 Mg Tab 500 Mg PO DAILY Mestinon (Pyridostigmine [place]) 60 Mg Tab 120 Mg PO TID Cyanocobalamin Inj (Cyanocobalamin) 1,000 Mcg/Ml Inj 1,000 Mcg IM MONTHLY Vitamin D3 (Cholecalciferol) 2,000 Unit Cap 2,000 Units PO DAILY Review of Systems Except as stated in HPI: all other systems reviewed are Neg Physical Exam Narrative GENERAL: Well-nourished, well-developed patient in no apparent distress. SKIN: Warm and dry. HEAD: Atraumatic. Normocephalic. EYES: Pupils equal and round reactive to light and accommodation. No scleral icterus. No injection or drainage. ENT: No nasal bleeding or discharge. Mucous membranes pink and moist. TMs are clear with no sign of infection or perforation. No mastoid tenderness. Ear canals are intact bilaterally. No lymphadenopathy. Nostril mucosa is red and moist with clear mucus noted. No sinus tenderness to palpation noted. Tonsils are not enlarged or swollen. No ulvua Deviation. Tongue is midline. NECK: Trachea midline. No JVD. No meningeal signs noted CARDIOVASCULAR: Regular rate and rhythm. RESPIRATORY: No accessory muscle use. Clear to auscultation. Breath sounds equal bilaterally. GASTROINTESTINAL: Abdomen soft, non-tender, nondistended. Hepatic and splenic margins not palpable. MUSCULOSKELETAL: Extremities without clubbing, cyanosis, or edema. No obvious deformities. Full range of motion of the upper and lower extremities bilaterally. 2+ pulses bilaterally. NEUROLOGICAL: Awake and alert. No obvious cranial nerve deficits. Motor grossly within normal limits. Five out of 5 muscle strength in the arms and legs. Normal speech. PSYCHIATRIC: Appropriate mood and affect; insight and judgment normal. Data Data Last Documented VS Vital Signs Date Time Temp Pulse Resp B/P (MAP) Pulse Ox O2 Delivery O2 Flow Rate FiO2 02/11/18 17:52 65 14 177/84 (115) 95 Room Air 02/11/18 13:11 97.5 Orders Orders Electrocardiogram (02/11/18 13:34) Complete Blood Count With Diff (02/11/18 13:34) Comprehensive Metabolic Panel (02/11/18 13:34) B-Type Natriuretic Peptide (02/11/18 13:34) Blood Culture (02/11/18 13:34) Magnesium (Mg) (02/11/18 13:34) Iv Access Insert/Monitor (02/11/18 13:34) Ecg Monitoring (02/11/18 13:34) Oximetry (02/11/18 13:34) Chest, Pa & Lat (02/11/18 ) Lactic Acid Sepsis Protocol (02/11/18 13:52) Group A Rapid Strep Screen (02/11/18 14:59) Ct Pulmonary Angiogram (02/11/18 ) Strep Culture (Group A) (02/11/18 15:05) Iohexol 350 Inj (Omnipaque 350 Inj) (02/11/18 17:09) Admit Order (Ed Use Only) (02/11/18 17:52) Labs Laboratory Tests Test 02/11/18 13:48 02/11/18 15:10 White Blood Count 4.4 TH/MM3 Red Blood Count 4.66 MIL/MM3 Hemoglobin 11.6 GM/DL Hematocrit 36.0 % Mean Corpuscular Volume 77.2 FL Mean Corpuscular Hemoglobin 24.9 PG Mean Corpuscular Hemoglobin Concent 32.2 % Red Cell Distribution Width 18.8 % Platelet Count 163 TH/MM3 Mean Platelet Volume 7.8 FL Neutrophils (%) (Auto) 74.2 % Lymphocytes (%) (Auto) 8.0 % Monocytes (%) (Auto) 15.3 % Eosinophils (%) (Auto) 1.6 % Basophils (%) (Auto) 0.9 % Neutrophils # (Auto) 3.2 TH/MM3 Lymphocytes # (Auto) 0.4 TH/MM3 Monocytes # (Auto) 0.7 TH/MM3 Eosinophils # (Auto) 0.1 TH/MM3 Basophils # (Auto) 0.0 TH/MM3 CBC Comment DIFF FINAL Differential Comment Blood Urea Nitrogen 21 MG/DL Creatinine 1.20 MG/DL Random Glucose 111 MG/DL Total Protein 7.4 GM/DL Albumin 4.2 GM/DL Calcium Level 9.5 MG/DL Magnesium Level 2.1 MG/DL Alkaline Phosphatase 92 U/L Aspartate Amino Transf (AST/SGOT) 16 U/L Alanine Aminotransferase (ALT/SGPT) 19 U/L Total Bilirubin 1.2 MG/DL Sodium Level 138 MEQ/L Potassium Level 4.0 MEQ/L Chloride Level 102 MEQ/L Carbon Dioxide Level 27.2 MEQ/L Anion Gap 9 MEQ/L Estimat Glomerular Filtration Rate 57 ML/MIN B-Type Natriuretic Peptide 99 PG/ML Lactic Acid Level 0.8 mmol/L MDM Medical Decision Making Medical Screen Exam Complete: Yes Emergency Medical Condition: Yes Medical Record Reviewed: Yes Interpretation(s) CBC & BMP Diagram 02/11/18 13:48 Total Protein 7.4, Albumin 4.2, Calcium Level 9.5, Magnesium Level 2.1, Alkaline Phosphatase 92, Aspartate Amino Transf (AST/SGOT) 16, Alanine Aminotransferase (ALT/SGPT) 19, Total Bilirubin 1.2 H BNP wnl Strep negative Last Impressions Chest X-Ray 02/11/18 0000 Signed Impressions: CONCLUSION: Small bilateral pleural effusions, right greater than left with basilar atelect asis. No significant pulmonary edema identified. CT Angiography 02/11/18 0000 Signed Impressions: CONCLUSION: 1. Negative for pulmonary embolism. 2. Bilateral effusions, right greater than left with mild basilar airspace dis ease bilaterally. Differential Diagnosis Pneumonia versus failed outpatient treatment versus shortness of breath versus COPD versus URI Narrative Course 87-year-old male that presents to the ED for evaluation of cold-like symptoms. Patient was properly examined and was found to have signs and symptoms consistent with possible pneumonia. I reviewed the patient's medical records from the urgent care where he was seen. Chest x-ray did not show pneumonia but shows some effusion. Patient has no history of this in the past. Patient did had a recent transfusion and could be related to that. No obvious history of CHF. Labs and imaging were ordered at this time. Labs essentially were essentially unremarkable. She did complain of some sore throat and strep test was done and was negative. My attending Dr. Chaudhary was made aware of findings and recommended CTA to rule out pulmonary embolism due to the new onset of pleural effusion and the symptoms not improving. This will also tell us if there is an actual pneumonia forming but able to more concerning for possible PE. Patient agreed for this. CT pulm showed vascular disease as well as bilateral effusions. Appear to be mild however. Patient retaken antibiotics. Patient continues to have symptoms. Patient clinically has failed outpatient treatment. Blood work for the most part looks okay but I did review his blood work from earlier this week and his white blood cell count went up almost 3 points. At this time I recommend admission. My attending Dr. Chaudhary was made aware of all findings and agrees with plan. Patient will be admitted for IV antibiotics. Case discussed with the residents who are on-call for Dr. Mitchell who agrees to admission. Diagnosis Primary Impression: Pneumonia Qualified Codes: J18.1 - Lobar pneumonia, unspecified organism Admitting Information Admitting Physician Requests: Jorden Bush Feb 11, 2018 17:20
--- NOTE | 2018-02-11 17:21 | RADRPT ---
EXAM DATE: 02/11/2018 5:12 PM EDT AGE/SEX: 87 years / Male INDICATIONS: Shortness of breath, cough. CLINICAL DATA: This is the patient's initial encounter. Patient reports that signs and symptoms have been present for 3 days and indicates a pain score of 0/10. MEDICAL/SURGICAL HISTORY: Carcinoma, colon. Metastatic disease. Cardiovascular disease. Hiatal h ernia, Myasthenia gravis. . Portion of liver removed. RADIATION DOSE: 14.40 CTDI (mGy) COMPARISON: No prior exams available for comparison. TECHNIQUE: Volumetric scanning was performed using a multi-row detector CT scanner during bolus infu xiang of 71 ml Omnipaque 350 (iohexol) nonionic water-soluble contrast as a single exam dose. The karon a was post processed with a variety of visualization algorithms including full volume maximum intensi ty projection and sliding thin slab reformation. Using automated exposure control and adjustment of the mA and/or kV according to patient size, radiation dose was kept as low as reasonably achievable t o obtain optimal diagnostic quality images. FINDINGS: No filling defects identified to suggest pulmonary embolic disease. 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 Small right effusion and trace left effusion. Basilar airspace disease. No acute findings in the uppe r abdomen. CONCLUSION: 1. Negative for pulmonary embolism. 2. Bilateral effusions, right greater than left with mild basilar airspace disease bilaterally. Electronically signed by: Vamshi Ellis MD 02/11/2018 5:20 PM EDT
--- NOTE | 2018-02-11 17:59 | HHI.HP ---
[facility] Service Family Medicine Primary Care Physician Chris Doherty MD Admission Diagnosis pneumonia, failed outpatient treatment Diagnoses: International Travel<30 Days: No Contact w/Intl Traveler<30days: No Known Affected Area: No History of Present Illness Mr. Peters is an 87-year-old male presenting to the ED from an urgent care center concerning for possible pneumonia versus pleural effusions. Patient states that on Tuesday of this week he received a blood transfusion after he was found to be anemic. Shortly after the transfusion he noticed he started to have a chronic cough that was productive with white/yellow sputum. He was seen by his PCP, Dr. Ramsey, on Tuesday for the cough and was started on cefuroxime 250 mg twice daily for 7 days. The patient states that initially he improved and has been compliant with his medications, however his cough continued. Today he states the cough worsened with a yellow/light brown sputum production. He then presented to an urgent care center for evaluation. Chest x -ray was completed concerning for possible pneumonia versus bilateral pleural effusions. He was then transported to the emergency department for further evaluation. Currently his only complaint is the "deep cough." He denies any shortness of breath, fever, chest pain, or fatigue. He has been taking Robitussin in addition to his antibiotics without symptom relief. Otherwise he has no complaints currently. Review of Systems Constitutional: DENIES: Fever, Chills, Dizziness Eyes: DENIES: Blurred vision, Double Vision Ears, nose, mouth, throat: DENIES: Throat pain, Ear Pain Respiratory: COMPLAINS OF: Cough, Sputum production, DENIES: Hemoptysis, Shortness of breath Cardiovascular: DENIES: Chest pain, Lower Extremity Edema Gastrointestinal: COMPLAINS OF: Nausea, DENIES: Abdominal pain, Diarrhea, Vomiting Genitourinary: DENIES: Hematuria, Dysuria Musculoskeletal: DENIES: Joint pain, Muscle aches Integumentary: DENIES: Rash Hematologic/lymphatic: DENIES: Lymphadenopathy Immunologic/allergic: DENIES: Urticaria Neurologic: DENIES: Headache Psychiatric: DENIES: Mood changes Past Family Social History Past Medical History Per EMR records: - hospitalized for urosepsis 2008 (secondary to BPH with obx symptoms now s/p TURP) - metastatic colon cancer - (initial partial colectomy 1987 with met to liver 2000 with subsequent surgical rsection), second primary colon cancer found 2007 and resected - colonic polyps - BPH - now s/p TURP - incisional hernia - hyperlipidemia - 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 The left frontal parietal subdural hematoma measured 10 mm in greatest width in the right posterior parietal subdural hematoma measured 6 mm in greatest width. These findings were stable on repeat CT during the hospitalization. A brain MRI showed atrophy with marked periventricular white matter changes. A brain MRA was negative. A magnetic resonance venogram was negative for venous thrombosis. - Fall (tripped over parking curb; sustained a right humeral neck fracture - Past Surgical History - partial colectomy 1987 and 2007 - partial liver resection 2000 - bilateral cataract extraction - TURP - retinal surgery L. 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 SKIN: Cool and dry. No rash. Lips appear dry. HEENT: Atraumatic, normocephalic with extraocular motions intact. No rhinorrhea. Posterior oropharynx slightly erythematous with tonsillar edema without exudate. Airway patent. No palpable LAD, JVD, or thyroid abnormality appreciated. Hearing aids bilaterally. CARDIOVASCULAR: Regular rate and rhythm without obvious murmurs, gallops, or rubs. 2+ pulses in all four extremities. RESPIRATORY: Bilateral lower lobe crackles with expiratory wheezes. No increased work of breathing. Patient able to converse in full, complete sentences. Pulse oximetry 98% on room air currently. GASTROINTESTINAL: Abdomen soft, non-tender, nondistended with positive bowel sounds. Multiple healed surgical scars. Moderately large right ventral hernia. No masses appreciated. MUSCULOSKELETAL: No cyanosis or edema. No calf tenderness. NEURO/PSYCH: Afocal. Awake, alert, and oriented x3. Normal speech and judgement. Laboratory Laboratory Tests Test 02/11/18 13:48 02/11/18 15:10 White Blood Count 4.4 Red Blood Count 4.66 Hemoglobin 11.6 Hematocrit 36.0 Mean Corpuscular Volume 77.2 Mean Corpuscular Hemoglobin 24.9 Mean Corpuscular Hemoglobin Concent 32.2 Red Cell Distribution Width 18.8 Platelet Count 163 Mean Platelet Volume 7.8 Neutrophils (%) (Auto) 74.2 Lymphocytes (%) (Auto) 8.0 Monocytes (%) (Auto) 15.3 Eosinophils (%) (Auto) 1.6 Basophils (%) (Auto) 0.9 Neutrophils # (Auto) 3.2 Lymphocytes # (Auto) 0.4 Monocytes # (Auto) 0.7 Eosinophils # (Auto) 0.1 Basophils # (Auto) 0.0 CBC Comment DIFF FINAL Differential Comment Blood Urea Nitrogen 21 Creatinine 1.20 Random Glucose 111 Total Protein 7.4 Albumin 4.2 Calcium Level 9.5 Magnesium Level 2.1 Alkaline Phosphatase 92 Aspartate Amino Transf (AST/SGOT) 16 Alanine Aminotransferase (ALT/SGPT) 19 Total Bilirubin 1.2 Sodium Level 138 Potassium Level 4.0 Chloride Level 102 Carbon Dioxide Level 27.2 Anion Gap 9 Estimat Glomerular Filtration Rate 57 B-Type Natriuretic Peptide 99 Lactic Acid Level 0.8 Date/Time Source Procedure Growth Status 02/11/18 13:48 Blood Peripheral Aerobic Blood Culture Pending Received 02/11/18 13:48 Blood Peripheral Anaerobic Blood Culture Pending Received 02/11/18 15:05 Throat Group A Streptococcus Screen Pending Received Result Diagram: 02/11/18 1348 02/11/18 1348 Imaging Last 72 hours Impressions Chest X-Ray 02/11/18 0000 Signed Impressions: CONCLUSION: Small bilateral pleural effusions, right greater than left with basilar atelect asis. No significant pulmonary edema identified. CT Angiography 02/11/18 0000 Signed Impressions: CONCLUSION: 1. Negative for pulmonary embolism. 2. Bilateral effusions, right greater than left with mild basilar airspace dis ease bilaterally. Caprini VTE Risk Assessment Caprini VTE Risk Assessment: Mod/High Risk (score >= 2) Caprini Risk Assessment Model Point Value = 1 Point Value = 2 Point Value = 3 Point Value = 5 Age 41-60 Minor surgery BMI > 25 kg/m2 Swollen legs Varicose veins or History of unexplained or recurrent spontaneous Oral contraceptives or hormone replacement Sepsis (< 1 month) Serious lung disease, including pneumonia (< 1 month) Abnormal pulmonary function Acute myocardial infarction Congestive heart failure (< 1 month) History of inflammatory bowel disease Medical patient at bed rest Age 61-74 Arthroscopic surgery Major open surgery (> 45 min) Laparoscopic surgery (> 45 min) Malignancy Confined to bed (> 72 hours) Immobilizing plaster cast Central venous access Age >= 75 History of VTE Family history of VTE Factor V Leiden Prothrombin [id number] Lupus anticoagulant Anticardiolipin antibodies Elevated serum homocysteine Heparin-induced thrombocytopenia Other congenital or acquired thrombophilia Stroke (< 1 month) Elective arthroplasty Hip, pelvis, or leg fracture Acute spinal cord injury (< 1 month) Prophylaxis Regimen Total Risk Factor Score Risk Level Prophylaxis Regimen 0-1 Low Early ambulation 2 Moderate Order ONE of the following: *Sequential Compression Device (SCD) *Heparin 5000 units SQ BID 3-4 Higher Order ONE of the following medications: *Heparin 5000 units SQ TID *Enoxaparin/Lovenox 40 mg SQ daily (WT < 150 kg, CrCl > 30 mL/min) *Enoxaparin/Lovenox 30 mg SQ daily (WT < 150 kg, CrCl > 10-29 mL/min) *Enoxaparin/Lovenox 30 mg SQ BID (WT < 150 kg, CrCl > 30 mL/min) AND/OR *Sequential Compression Device (SCD) 5 or more Highest Order ONE of the following medications: *Heparin 5000 units SQ TID (Preferred with Epidurals) *Enoxaparin/Lovenox 40 mg SQ daily (WT < 150 kg, CrCl > 30 mL/min) *Enoxaparin/Lovenox 30 mg SQ daily (WT < 150 kg, CrCl > 10-29 mL/min) *Enoxaparin/Lovenox 30 mg SQ BID (WT < 150 kg, CrCl > 30 mL/min) AND *Sequential Compression Device (SCD) Assessment and Plan Assessment and Plan Mr. Peters is a 87-year-old male admitted for chronic cough likely secondary to bilateral pleural effusions versus early stage pneumonia Code Status FULL CODE Discussed Condition With Mr. Patel, ED PA Problem List: (1) Pleural effusion ICD Codes: J90 - Pleural effusion, not elsewhere classified Status: Acute Plan: Patient with recent blood transfusion presenting with bilateral small pleural effusions complaining of cough. Physical exam with by basilar crackles and expiratory wheezes. -Chest x-ray: Small bilateral pleural effusions, right greater than left, with basilar atelectasis. No significant pulmonary edema. -CTA: Negative for pulmonary embolism. Bilateral pleural effusions right greater than left with basilar airspace disease. -BNP 99 -Albumin 4.2 -Incentive spirometry, Acapella, respiratory CPT Medications: -Lasix 20 mg IV once (Patient with reported flushing with Sulfa mediations; no true anaphylactic reaction reported) -Tessalon Perles as needed for cough -Scheduled DuoNeb breathing treatments (2) Community acquired pneumonia ICD Codes: J18.9 - Pneumonia, unspecified organism Status: Acute Plan: Immunosuppressed patient presenting with productive cough found to have bilateral small pleural effusions with possible early signs of basilar pneumonia. Due to immunosuppression with minimal improvement on outpatient antibiotics, patient will be treated for community-acquired pneumonia. Patient currently does not meet sepsis/SIRS or criteria. -Chest x-ray and CTA as above -CBC: WBC 4.4 with 74% neutrophils -CMP: Within normal limits, continue to monitor -Lactic acid 0.8 -Rapid strep: Negative -Blood cultures: Pending -Urinary Legionella/pneumococcal antigens: Pending -Sputum cultures pending -Influenza: Pending Medications: -Azithromycin 500 mg daily -Ceftriaxone 1 g daily -Tylenol as needed for fever (3) Iron deficiency anemia ICD Codes: D50.9 - Iron deficiency anemia, unspecified Status: Acute Plan: Patient with reported iron deficiency anemia. Per patient, patient is evaluated by Dr. Soares, hematology, and is scheduled for iron transfusion on 02/13/18. Patient recently had blood transfusion on 02/07/18. -CBC: H/H 11.6/36 -MCV 77.2 -Iron panel ordered (4) Myasthenia gravis ICD Codes: G70.00 - Myasthenia gravis Status: Chronic Plan: Patient with history of myasthenia gravis currently not in exacerbation Medications: -Continue home Mestinon 120 mg 3 times daily, CellCept 500 mg daily Permanent Comment: Dysphagia; elevated acetycholine recept bind AB elevated, striated muscle ab + Last Edited By: Chris Doherty on Aug 26, 2014 13:53 (5) Anxiety ICD Codes: F41.9 - Anxiety Status: Chronic Plan: Patient with history of anxiety Medications: -Continue home medication of Xanax 0.25 mg daily (6) Nutrition, metabolism, and development symptoms ICD Codes: R63.8 - Other symptoms and signs concerning food and fluid intake Status: Acute Plan: -Fluids: Patient currently tolerating oral fluids and does not appear dehydrated -Diet: Regular as tolerated -Electrolytes: Within normal limits, continue to monitor -Prophylaxis: Tylenol as needed for fever/headache, constipation protocol, DuoNeb's as needed for shortness of breath, Zofran as needed for nausea/vomiting , clonidine as needed for blood pressure greater than 180/110, famotidine as needed for reflux, Tessalon Perles as needed for cough -Physical therapy consult (7) No contraindication to deep vein thrombosis (DVT) prophylaxis ICD Codes: Z78.9 - Other specified health status Status: Acute Plan: -SCDs Medication: -Heparin 5000 units every 8 hours Physician Certification 2 Midnight Certification Type: Admission for Inpatient Services Order for Inpatient Services The services are ordered in accordance with Medicare regulations or non- Medicare payer requirements, as applicable. In the case of services not specified as inpatient-only, they are appropriately provided as inpatient services in accordance with the 2-midnight benchmark. Estimated LOS (days): 3 3 days is the estimated time the patient will need to remain in the hospital, assuming treatment plan goals are met and no additional complications. Post-Hospital Plan: Home Problem Qualifiers (1) Community acquired pneumonia: Qualified Codes: J18.9 - Pneumonia, unspecified organism (2) Iron deficiency anemia: Qualified Codes: D50.8 - Other iron deficiency anemias Fabricio Siegel MD R2 Feb 11, 2018 17:58
[2018-02-11] MEDS ORDERED: ALPRAZolam 0.25 MG TAB PO PRN (18:15)
[2018-02-11] MEDS ORDERED: NALOXONE HCL 0.4 MG/ML AMP IV PUSH PRN (19:00)
[2018-02-11] MEDS ORDERED: BISACODYL 10 MG SUPP RECTAL PRN (19:00)
[2018-02-11] MEDS ORDERED: ACETAMINOPHEN 325 MG TAB PO PRN (19:00)
[2018-02-11] MEDS ORDERED: ONDANSETRON ODT 4 MG TAB PO PRN (19:00)
[2018-02-11] MEDS ORDERED: DOCUSATE SODIUM 50 MG/SENNA 8.6 MG TAB PO PRN (19:00)
[2018-02-11] MEDS ORDERED: RESP: ALBUTEROL 2.5 MG/IPRATROPIUM 0.5 MG NEB (PRN) INH (19:00)
[2018-02-11] MEDS ORDERED: FUROSEMIDE 40 MG/4 ML VIAL IV PUSH ONE (19:00)
[2018-02-11] MEDS ORDERED: MAGNESIUM HYDROXIDE SUSP 30 ML CUP PO PRN (19:00)
[2018-02-11] MEDS ORDERED: SODIUM CHLORIDE 0.9% FLUSH 10 ML FLUSH IV FLUSH PRN (19:00)
[2018-02-11] MEDS ORDERED: SENNOSIDES 8.6 MG TAB PO PRN (19:00)
[2018-02-11] MEDS ORDERED: cloNIDine HCL 0.1 MG TAB PO PRN (19:15)
[2018-02-11] MEDS ORDERED: FAMOTIDINE 20 MG TAB PO PRN (19:15)
[2018-02-11] MEDS ORDERED: FUROSEMIDE 20 MG/2 ML VIAL IV PUSH ONE (19:15)
[2018-02-11] MEDS ORDERED: BENZONATATE 100 MG CAP PO PRN (19:15)
[2018-02-11] MEDS: RESP: ALBUTEROL 2.5 MG/IPRATROPIUM 0.5 MG NEB (SCH) INH (19:35)
[2018-02-11] MEDS ORDERED: cefTRIAXone INJ 1,000 MG in SODIUM CHLORIDE 0.9% INJ 100 ML IV SCH (21:00)
[2018-02-11] MEDS ORDERED: NON-FORMULARY DRUG (Multiple Vitamins W/ Minerals (Preservision Areds) 1 TAB) PO SCH (21:00)
[2018-02-11] MEDS: AZITHROMYCIN 250 MG TAB PO SCH (23:13)
[2018-02-11] MEDS: DOCUSATE SODIUM 100 MG CAP PO SCH (23:13)
[2018-02-11] MEDS: HEPARIN SODIUM - SQ 10,000 UNITS/ML VIAL SQ SCH (23:13)
[2018-02-11] MEDS: SODIUM CHLORIDE 0.9% FLUSH 10 ML FLUSH IV FLUSH SCH (23:14)
[2018-02-12 00:30] VITALS: BP 128/62; PULSE 62; RESP 17; TEMP 97.9; O2SAT 97
[2018-02-12] MEDS: RESP: ALBUTEROL 2.5 MG/IPRATROPIUM 0.5 MG NEB (SCH) INH ×2 (03:18→08:38)
[2018-02-12] MEDS: HEPARIN SODIUM - SQ 10,000 UNITS/ML VIAL SQ SCH ×2 (04:00→11:02)
[2018-02-12 04:15] VITALS: BP 123/69; PULSE 60; RESP 19; TEMP 98; O2SAT 98
[2018-02-12] MEDS ORDERED: MYCO250C PO (04:27)
[2018-02-12] MEDS: AZITHROMYCIN 250 MG TAB PO SCH (07:40)
[2018-02-12] MEDS: CHOLECALCIFEROL (VIT D3) 1000 UNIT TAB PO SCH ×2 (07:40→07:51)
[2018-02-12] MEDS: DOCUSATE SODIUM 100 MG CAP PO SCH (07:40)
[2018-02-12] MEDS: PYRIDOSTIGMINE BROMIDE 60 MG TAB PO SCH ×2 (07:40→12:32)
[2018-02-12] MEDS: SODIUM CHLORIDE 0.9% FLUSH 10 ML FLUSH IV FLUSH SCH (07:41)
[2018-02-12 08:00] VITALS: BP 131/60; PULSE 66; RESP 20; TEMP 97.5; O2SAT 94
[2018-02-12 08:44] VITALS: O2SAT 94
[2018-02-12 08:52] LABS: AUTOMATED NEUTROPHIL # 2.7 TH/MM3 (1.8-7.7); EOSINOPHIL # 0.1 TH/MM3 (0-0.4); EOSINOPHIL % 1.6 % (0.0-4.0); HEMOGLOBIN 11.1 GM/DL (13.0-17.0); LYMPH % 7.7 % (9.0-44.0); LYMPHOCYTE # 0.3 TH/MM3 (1.0-4.8); MEAN CELL VOLUME 77.7 FL (80.0-100.0); MEAN CORPUSCULAR HEMOGLOBIN 24.6 PG (27.0-34.0); MEAN CORPUSCULAR HGB CONC 31.6 % (32.0-36.0); MEAN PLATELET VOLUME 7.8 FL (7.0-11.0); MONO % 16.2 % (0.0-8.0); MONOCYTE # 0.6 TH/MM3 (0-0.9); NEUT % 73.5 % (16.0-70.0); PLATELET COUNT 144 TH/MM3 (150-450); RED BLOOD COUNT 4.51 MIL/MM3 (4.50-5.90); RED CELL DISTRIBUTION WIDTH 18.7 % (11.6-17.2); WHITE BLOOD COUNT 3.7 TH/MM3 (4.0-11.0)
[2018-02-12] MEDS ORDERED: MYCOPHENOLATE MOFETIL 500 MG TAB PO SCH (09:00)
--- NOTE | 2018-02-12 09:06 | HHI.DCPOC ---
Discharge Care Plan Diagnosis: (1) Pleural effusion Goals to Promote Your Health * To prevent worsening of your condition and complications * To maintain your health at the optimal level Directions to Meet Your Goals Take your medications as prescribed Follow your dietary instruction Follow activity as directed Keep your appointments as scheduled Take your immunizations and boosters as scheduled If your symptoms worsen call your PCP, if no PCP go to Urgent Care Center or Emergency Room Smoking is Dangerous to Your Health. Avoid second hand smoke Call the 24-hour hour crisis hotline for domestic abuse at Thelma Walters MD R3 Feb 12, 2018 09:06
[2018-02-12] MEDS ORDERED: FURO20TA PO (09:08)
[2018-02-12 09:28] LABS: % SATURATION IRON PROFILE 5.6 % (20-50); ALBUMIN 3.6 GM/DL (3.4-5.0); ALKALINE PHOSPHATASE 84 U/L (45-117); ALT (GPT) 15 U/L (12-78); AST (GOT) 14 U/L (15-37); BICARBONATE 27.4 MEQ/L (21.0-32.0); BLOOD UREA NITROGEN 23 MG/DL (7-18); CALCIUM 9.2 MG/DL (8.5-10.1); CHLORIDE 101 MEQ/L (98-107); CREATININE 1.16 MG/DL (0.60-1.30); GLOMERULAR FILTRATION RATE 59 ML/MIN (>89); GLUCOSE,RANDOM 106 MG/DL (74-106); IRON (FE) 24 MCG/DL (65-175); SODIUM (NA) 138 MEQ/L (136-145); TOTAL BILIRUBIN ADULT 0.8 MG/DL (0.2-1.0); TOTAL IRON BINDING CAPACITY 426 MCG/DL (250-450); TOTAL PROTEIN 6.8 GM/DL (6.4-8.2)
[2018-02-12 12:00] VITALS: BP 106/51; PULSE 71; RESP 20; TEMP 97.9; O2SAT 96
[2018-02-12] MEDS ORDERED: MAGNESIUM SULFATE 1 GM PREMIX 100 ML IV ONE (13:00)
[2018-02-12] MEDS ORDERED: POTASSIUM CHLORIDE 10 MEQ CONTROLLED RELEASE TAB PO ONE (13:00)
--- NOTE | 2018-02-12 13:27 | HHI.HP ---
[facility] Service Family Medicine Primary Care Physician Chris Doherty MD Admission Diagnosis pneumonia, failed outpatient treatment Diagnoses: (1) Pleural effusion Diagnosis: Principal (2) Community acquired pneumonia Diagnosis: Principal (3) Iron deficiency anemia Diagnosis: Principal (4) Myasthenia gravis Diagnosis: Principal (5) Anxiety Diagnosis: Principal (6) Nutrition, metabolism, and development symptoms Diagnosis: Principal (7) No contraindication to deep vein thrombosis (DVT) prophylaxis Diagnosis: Principal International Travel<30 Days: No Contact w/Intl Traveler<30days: No Known Affected Area: No History of Present Illness Mr. Peters is an 87-year-old male presenting to the ED from an urgent care center concerning for possible pneumonia versus pleural effusions. Patient states that on Tuesday of this week he received a blood transfusion after he was found to be anemic. Shortly after the transfusion he noticed he started to have a chronic cough that was productive with white/yellow sputum. He was seen by his PCP, Dr. Ramsey, on Tuesday for the cough and was started on cefuroxime 250 mg twice daily for 7 days. The patient states that initially he improved and has been compliant with his medications, however his cough continued. He states the cough worsened with a yellow/light brown sputum production. He then presented to an urgent care center for evaluation. Chest x -ray was completed concerning for possible pneumonia versus bilateral pleural effusions. He was then transported to the emergency department for further evaluation. His only complaint when seen on admission was the "deep cough." He denies any shortness of breath, fever, chest pain, or fatigue. He has been taking Robitussin in addition to his antibiotics without symptom relief. Otherwise he has no complaints currently. This am he feels improved and reports his breathing is about back to normal. He had some lasix which was very effective. He denies any heart history and his BNP was fine so that workup was not pursued at this time. He wishes to go back to [facility] where he lives and his only complaint this am was muscle cramping of both legs and arms after he had 2 "bouts" pf diarrhea along with a very effective dose of his diuretic. He is eating well, ambulating and has no other complaints. Review of Systems Other Constitutional: DENIES: Fever, Chills, Dizziness Eyes: DENIES: Blurred vision, Double Vision Ears, nose, mouth, throat: DENIES: Throat pain, Ear Pain Respiratory: COMPLAINS OF: Cough, Sputum production, DENIES: Hemoptysis, Shortness of breath Cardiovascular: DENIES: Chest pain, Lower Extremity Edema Gastrointestinal: COMPLAINS OF: Nausea, DENIES: Abdominal pain, Diarrhea, Vomiting Genitourinary: DENIES: Hematuria, Dysuria Musculoskeletal: DENIES: Joint pain, Muscle aches Integumentary: DENIES: Rash Hematologic/lymphatic: DENIES: Lymphadenopathy Immunologic/allergic: DENIES: Urticaria Neurologic: DENIES: Headache Psychiatric: DENIES: Mood changes Past Family Social History Past Medical History Per EMR records: - hospitalized for urosepsis 2008 (secondary to BPH with obx symptoms now s/p TURP) - metastatic colon cancer - (initial partial colectomy 1987 with met to liver 2000 with subsequent surgical rsection), second primary colon cancer found 2007 and resected - colonic polyps - BPH - now s/p TURP - incisional hernia - hyperlipidemia - 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 The left frontal parietal subdural hematoma measured 10 mm in greatest width in the right posterior parietal subdural hematoma measured 6 mm in greatest width. These findings were stable on repeat CT during the hospitalization. A brain MRI showed atrophy with marked periventricular white matter changes. A brain MRA was negative. A magnetic resonance venogram was negative for venous thrombosis. - Fall (tripped over parking curb; sustained a right humeral neck fracture - Past Surgical History - partial colectomy 1987 and 2007 - partial liver resection 2000 - bilateral cataract extraction - TURP - retinal surgery L. 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 Tobacco: none Alcohol: none Illicit drug use: none Physical Exam Vital Signs Vital Signs Date Time Temp Pulse Resp B/P (MAP) Pulse Ox O2 Delivery O2 Flow Rate FiO2 02/12/18 08:44 94 21 02/12/18 08:00 97.5 66 20 131/60 (83) 94 02/12/18 04:15 98.0 60 19 123/69 (87) 98 02/12/18 00:30 97.9 62 17 128/62 (84) 97 02/11/18 21:15 98.8 64 17 150/68 (95) 96 02/11/18 20:39 02/11/18 20:19 74 16 168/77 (107) 96 Room Air 02/11/18 19:39 95 21 02/11/18 19:12 64 20 201/90 (127) 95 Room Air 02/11/18 17:52 65 14 177/84 (115) 95 Room Air 02/11/18 13:47 61 158/74 (102) 02/11/18 13:39 16 97 Room Air Physical Exam GENERAL: Elderly gentleman lying in bed in no acute distress except before when he had muscle cramps but breathing well SKIN: Cool and dry. No rash. Lips appear dry. HEENT: Atraumatic, normocephalic with extraocular motions intact. No rhinorrhea. Posterior oropharynx slightly erythematous with tonsillar edema without exudate seen on admission. Airway patent. No palpable LAD, JVD, or thyroid abnormality appreciated. Hearing aids bilaterally. CARDIOVASCULAR: Regular rate and rhythm without obvious murmurs, gallops, or rubs. 2+ pulses in all four extremities. RESPIRATORY: Bilateral lower lobe crackles initially now clear especially right lower with diminished breath sounds/few crackles left lower no expiratory wheezes today. No increased work of breathing. Patient able to converse in full, complete sentences. Pulse oximetry 98% on room air currently. GASTROINTESTINAL: Abdomen soft, non-tender, nondistended with positive bowel sounds. Multiple healed surgical scars. Moderately large right ventral hernia. No masses appreciated. MUSCULOSKELETAL: No cyanosis or edema. No calf tenderness. NEURO/PSYCH: Afocal. Awake, alert, and oriented x3. Normal speech and judgement. Laboratory Laboratory Tests Test 02/11/18 13:48 02/11/18 15:10 02/12/18 08:22 White Blood Count 4.4 3.7 Red Blood Count 4.66 4.51 Hemoglobin 11.6 11.1 Hematocrit 36.0 35.0 Mean Corpuscular Volume 77.2 77.7 Mean Corpuscular Hemoglobin 24.9 24.6 Mean Corpuscular Hemoglobin Concent 32.2 31.6 Red Cell Distribution Width 18.8 18.7 Platelet Count 163 144 Mean Platelet Volume 7.8 7.8 Neutrophils (%) (Auto) 74.2 73.5 Lymphocytes (%) (Auto) 8.0 7.7 Monocytes (%) (Auto) 15.3 16.2 Eosinophils (%) (Auto) 1.6 1.6 Basophils (%) (Auto) 0.9 1.0 Neutrophils # (Auto) 3.2 2.7 Lymphocytes # (Auto) 0.4 0.3 Monocytes # (Auto) 0.7 0.6 Eosinophils # (Auto) 0.1 0.1 Basophils # (Auto) 0.0 0.0 CBC Comment DIFF FINAL DIFF FINAL Differential Comment Blood Urea Nitrogen 21 23 Creatinine 1.20 1.16 Random Glucose 111 106 Total Protein 7.4 6.8 Albumin 4.2 3.6 Calcium Level 9.5 9.2 Magnesium Level 2.1 2.0 Alkaline Phosphatase 92 84 Aspartate Amino Transf (AST/SGOT) 16 14 Alanine Aminotransferase (ALT/SGPT) 19 15 Total Bilirubin 1.2 0.8 Sodium Level 138 138 Potassium Level 4.0 3.5 Chloride Level 102 101 Carbon Dioxide Level 27.2 27.4 Anion Gap 9 10 Estimat Glomerular Filtration Rate 57 59 B-Type Natriuretic Peptide 99 Lactic Acid Level 0.8 Iron Level 24 Total Iron Binding Capacity 426 Percent Iron Saturation 5.6 Date/Time Source Procedure Growth Status 02/11/18 13:48 Blood Peripheral Aerobic Blood Culture - Preliminary NO GROWTH IN 1 DAY Resulted 02/11/18 13:48 Blood Peripheral Anaerobic Blood Culture - Preliminary NO GROWTH IN 1 DAY Resulted 02/11/18 20:00 Nasal Washing Influenza Types A,B Antigen (NATALIIA) - Final NEGATIVE FOR FLU A AND B ANTIGEN.... Complete 02/11/18 20:00 Urine Clean Catch Legionella Antigen - Final PRESUMPTIVE NEGATIVE FOR LEGIONELLA P... Complete 02/11/18 20:00 Urine Clean Catch Streptococcus pneumoniae Antigen (M - Final PRESUMPTIVE NEGATIVE FOR STREPTOCOCCU... Complete Result Diagram: 02/12/18 0822 02/12/18 0822 Imaging Last 72 hours Impressions Chest X-Ray 02/11/18 0000 Signed Impressions: CONCLUSION: Small bilateral pleural effusions, right greater than left with basilar atelect asis. No significant pulmonary edema identified. CT Angiography 02/11/18 0000 Signed Impressions: CONCLUSION: 1. Negative for pulmonary embolism. 2. Bilateral effusions, right greater than left with mild basilar airspace dis ease bilaterally. Caprini VTE Risk Assessment Caprini VTE Risk Assessment: Mod/High Risk (score >= 2) Caprini Risk Assessment Model Point Value = 1 Point Value = 2 Point Value = 3 Point Value = 5 Age 41-60 Minor surgery BMI > 25 kg/m2 Swollen legs Varicose veins or History of unexplained or recurrent spontaneous Oral contraceptives or hormone replacement Sepsis (< 1 month) Serious lung disease, including pneumonia (< 1 month) Abnormal pulmonary function Acute myocardial infarction Congestive heart failure (< 1 month) History of inflammatory bowel disease Medical patient at bed rest Age 61-74 Arthroscopic surgery Major open surgery (> 45 min) Laparoscopic surgery (> 45 min) Malignancy Confined to bed (> 72 hours) Immobilizing plaster cast Central venous access Age >= 75 History of VTE Family history of VTE Factor V Leiden Prothrombin [id number] Lupus anticoagulant Anticardiolipin antibodies Elevated serum homocysteine Heparin-induced thrombocytopenia Other congenital or acquired thrombophilia Stroke (< 1 month) Elective arthroplasty Hip, pelvis, or leg fracture Acute spinal cord injury (< 1 month) Prophylaxis Regimen Total Risk Factor Score Risk Level Prophylaxis Regimen 0-1 Low Early ambulation 2 Moderate Order ONE of the following: *Sequential Compression Device (SCD) *Heparin 5000 units SQ BID 3-4 Higher Order ONE of the following medications: *Heparin 5000 units SQ TID *Enoxaparin/Lovenox 40 mg SQ daily (WT < 150 kg, CrCl > 30 mL/min) *Enoxaparin/Lovenox 30 mg SQ daily (WT < 150 kg, CrCl > 10-29 mL/min) *Enoxaparin/Lovenox 30 mg SQ BID (WT < 150 kg, CrCl > 30 mL/min) AND/OR *Sequential Compression Device (SCD) 5 or more Highest Order ONE of the following medications: *Heparin 5000 units SQ TID (Preferred with Epidurals) *Enoxaparin/Lovenox 40 mg SQ daily (WT < 150 kg, CrCl > 30 mL/min) *Enoxaparin/Lovenox 30 mg SQ daily (WT < 150 kg, CrCl > 10-29 mL/min) *Enoxaparin/Lovenox 30 mg SQ BID (WT < 150 kg, CrCl > 30 mL/min) AND *Sequential Compression Device (SCD) Assessment and Plan Assessment and Plan Mr. Petesr is a 87-year-old male admitted for chronic cough likely secondary to bilateral pleural effusions versus early stage pneumonia Problem List: (1) Pleural effusion ICD Codes: J90 - Pleural effusion, not elsewhere classified Status: Acute Plan: Patient with recent blood transfusion presenting with bilateral small pleural effusions complaining of cough. Physical exam with by basilar crackles and expiratory wheezes on admission, better today after diuresis. -Chest x-ray: Small bilateral pleural effusions, right greater than left, with basilar atelectasis. No significant pulmonary edema. -CTA: Negative for pulmonary embolism. Bilateral pleural effusions right greater than left with basilar airspace disease. -BNP 99 -Albumin 4.2 -Incentive spirometry, Acapella, respiratory CPT Medications: -Lasix 20 mg IV once (Patient with reported flushing with Sulfa mediations; no true anaphylactic reaction reported) -Tessalon Perles as needed for cough -Scheduled DuoNeb breathing treatments he is so much better will send him home with po lasix as needed. he may have had slight fluid overload with his transfusion vs another reason. his BNP is fine and if he has more problems in the future he can get a work up as required. (2) Community acquired pneumonia ICD Codes: J18.9 - Pneumonia, unspecified organism Status: Acute Plan: Immunosuppressed patient presenting with productive cough found to have bilateral small pleural effusions with possible early signs of basilar pneumonia. Due to immunosuppression with minimal improvement on outpatient antibiotics, patient will be treated for community-acquired pneumonia. Patient currently does not meet sepsis/SIRS or criteria. -Chest x-ray and CTA as above -CBC: WBC 4.4 with 74% neutrophils -CMP: Within normal limits, continue to monitor -Lactic acid 0.8 -Rapid strep: Negative -Blood cultures: Pending -Urinary Legionella/pneumococcal antigens: Pending -Sputum cultures pending -Influenza: Pending Medications: -Azithromycin 500 mg daily -Ceftriaxone 1 g daily -Tylenol as needed for fever send him home on po (3) Iron deficiency anemia ICD Codes: D50.9 - Iron deficiency anemia, unspecified Status: Acute Plan: Patient with reported iron deficiency anemia. Per patient, patient is evaluated by Dr. Soares, hematology, and is scheduled for iron transfusion on 02/13/18. Patient recently had blood transfusion on 02/07/18. -CBC: H/H 11.636 -MCV 77.2 -Iron panel ordered he will have Fe iv tomorrow per Oncology (4) Myasthenia gravis ICD Codes: G70.00 - Myasthenia gravis Status: Chronic Plan: Patient with history of myasthenia gravis currently not in exacerbation Medications: -Continue home Mestinon 120 mg 3 times daily, CellCept 500 mg daily Permanent Comment: Dysphagia; elevated acetycholine recept bind AB elevated, striated muscle ab + Last Edited By: Chris Doherty on Aug 26, 2014 13:53 (5) Anxiety ICD Codes: F41.9 - Anxiety Status: Chronic Plan: Patient with history of anxiety Medications: -Continue home medication of Xanax 0.25 mg daily (6) Nutrition, metabolism, and development symptoms ICD Codes: R63.8 - Other symptoms and signs concerning food and fluid intake Status: Acute Plan: -Fluids: Patient currently tolerating oral fluids and does not appear dehydrated -Diet: Regular as tolerated -Electrolytes: Within normal limits, continue to monitor -Prophylaxis: Tylenol as needed for fever/headache, constipation protocol, DuoNeb's as needed for shortness of breath, Zofran as needed for nausea/vomiting , clonidine as needed for blood pressure greater than 180/110, famotidine as needed for reflux, Tessalon Perles as needed for cough -Physical therapy consult (7) No contraindication to deep vein thrombosis (DVT) prophylaxis ICD Codes: Z78.9 - Other specified health status Status: Acute Plan: -SCDs Medication: -Heparin 5000 units every 8 hours (8) Muscle cramping ICD Codes: R25.2 - Cramp and spasm Status: Acute Plan: was going to give him K plus Mag to cover for empiric electrolytes shifting but his iv was lost so will give K po only 40 meq. his pain resolved spontaneously and he is doing well now so the K is just a precaution Problem Qualifiers (1) Community acquired pneumonia: Qualified Codes: J18.9 - Pneumonia, unspecified organism (2) Iron deficiency anemia: Qualified Codes: D50.8 - Other iron deficiency anemias Perla Hutchins MD Feb 12, 2018 13:27
--- NOTE | 2018-02-12 14:03 | EKG ---
Date Performed: 02/11/2018 Time Performed: 13:36:40 PTAGE: 87 years EKG: Sinus rhythm RIGHT BUNDLE BRANCH BLOCK ABNORMAL ECG PREVIOUS TRACING : 08/16/2017 @19.59 Since the previous tracing, no significant change noted DOCTOR: Ry Sultana Interpretating Date/Time 02/12/2018 14:03:15
== END 2018-02-12 15:03 | disposition home or self-care (01) | DRG 186 ==
LOC: NEPC 13:05 → NEDA 17:53 → UNDOADMOB 17:54 → NEDA 17:54 → OBSVTOIN 18:56 → N05B 20:30 → NEDA 20:30 → UNDODISOB 02-12 15:03
PROVIDERS: ADMIT Family Medicine; ATTEND Family Medicine
DX: J90 Pleural effusion, not elsewhere classified (principal); J18.9 Pneumonia, unspecified organism; G70.00 Myasthenia gravis without (acute) exacerbation; J44.0 Chronic obstructive pulmonary disease with (acute) lower respiratory infection; J98.11 Atelectasis; E78.5 Hyperlipidemia, unspecified; D50.8 Other iron deficiency anemias; F41.9 Anxiety disorder, unspecified; R25.2 Cramp and spasm; K21.9 Gastro-esophageal reflux disease without esophagitis; H91.93 Unspecified hearing loss, bilateral; M19.90 Unspecified osteoarthritis, unspecified site; Z85.05 Personal history of malignant neoplasm of liver; Z85.038 Personal history of other malignant neoplasm of large intestine; Z85.46 Personal history of malignant neoplasm of prostate; Z85.830 Personal history of malignant neoplasm of bone; Z90.49 Acquired absence of other specified parts of digestive tract; Z92.21 Personal history of antineoplastic chemotherapy; Z92.3 Personal history of irradiation
CPT/HCPCS: 71046; 71275; 80053; 83540; 83550; 83605; 83735; 83880; 85025; 87040; 87081; 87449; 87804; 87880; 93005; 94150; 94640; 94664; 94667; 94668; 99285; J0696; J1644; J1940; J7517; Q9967

== ENCOUNTER → 2018-02-22 | Outpatient (CLI) | payer MEDICARE ==
[~2018-02-22] MED LIST changes: -CEFU1TAB20 PO; -DEXA4TAB PO; -ENSULIQ8 PO; +FURO20TA PO; -LEVO750T3 PO; -MILKSUS PO; +MYCO250C PO; -MYCO500 PO
[2018-02-22 12:29] LABS: ALBUMIN 3.6 GM/DL (3.4-5.0); AST (GOT) 15 U/L (15-37); BICARBONATE 29.1 MEQ/L (21.0-32.0); BLOOD UREA NITROGEN 25 MG/DL (7-18); CALCIUM 9.3 MG/DL (8.5-10.1); CHLORIDE 104 MEQ/L (98-107); CREATININE 1.21 MG/DL (0.60-1.30); GLOMERULAR FILTRATION RATE 57 ML/MIN (>89); GLUCOSE,FASTING 115 MG/DL (74-99); SODIUM (NA) 140 MEQ/L (136-145)
[2018-02-22 12:31] LABS: ALT (GPT) 17 U/L (12-78); DIRECT BILIRUBIN ADULT 0.3 MG/DL (0.0-0.2)
[2018-02-22 12:32] LABS: ALKALINE PHOSPHATASE 73 U/L (45-117); TOTAL BILIRUBIN ADULT 0.8 MG/DL (0.2-1.0); TOTAL PROTEIN 6.6 GM/DL (6.4-8.2)
[2018-02-22 12:52] LABS: AUTOMATED NEUTROPHIL # 2.2 TH/MM3 (1.8-7.7); BASOPHIL % 1.2 % (0.0-2.0); EOSINOPHIL # 0.1 TH/MM3 (0-0.4); EOSINOPHIL % 2.1 % (0.0-4.0); HEMATOCRIT 35.4 % (39.0-51.0); LYMPH % 10.6 % (9.0-44.0); LYMPHOCYTE # 0.3 TH/MM3 (1.0-4.8); MEAN CELL VOLUME 80.5 FL (80.0-100.0); MEAN PLATELET VOLUME 8.2 FL (7.0-11.0); MONO % 11.2 % (0.0-8.0); MONOCYTE # 0.3 TH/MM3 (0-0.9); NEUT % 74.9 % (16.0-70.0); PLATELET COUNT 188 TH/MM3 (150-450); RED CELL DISTRIBUTION WIDTH 20.8 % (11.6-17.2)
== END ==
LOC: ELAB 10:42
PROVIDERS: ATTEND Specialist
DX: G70.01 Myasthenia gravis with (acute) exacerbation (principal); R94.5 Abnormal results of liver function studies; G93.3 Postviral and related fatigue syndromes; E88.9 Metabolic disorder, unspecified
CPT/HCPCS: 36415; 80053; 82248; 85025

== ENCOUNTER 2018-04-12 07:03 | Inpatient (IN) ==
[2018-04-12] MEDS ORDERED: Sod Chloride 0.9% Inj 1,000 ML IV.SIG ONE (07:45)
[2018-04-12 08:04] LABS: Baso % (Auto) 0.4 % (0.0-2.0); Eos # (Auto) 0.1 th/mm3 (0.0-0.4); Eos % (Auto) 1.2 % (0.0-4.0); Hematocrit 37.4 % (39.0-51.0); Hemoglobin 12.1 gm/dL (13.0-17.0); Lymph # (Auto) 0.3 th/mm3 (1.0-4.8); Lymph % (Auto) 6.3 % (9.0-44.0); Mean Corpuscular HGB Conc 32.3 % (32.0-36.0); Mean Corpuscular Volume 86.8 fL (80.0-100.0); Mean Platelet Volume 8.1 fL (7.0-11.0); Mono # (Auto) 0.5 th/mm3 (0.0-0.9); Mono % (Auto) 11.3 % (0.0-8.0); Neut # (Auto) 3.5 th/mm3 (1.8-7.7); Neut % (Auto) 80.8 % (16.0-70.0); Platelet Count 125 th/mm3 (150-450); Red Blood Count 4.31 mil/mm3 (4.50-5.90); Red Cell Distribution Width 22.8 % (11.6-17.2); White Blood Count 4.3 th/mm3 (4.0-11.0)
[2018-04-12] MEDS ORDERED: Diatrizoate Meglum/Diatrizoate Sod Liq 9 ML UDC ONE ×2 (08:16→08:55)
[2018-04-12 08:20] LABS: Alanine Aminotransferase 18 U/L (12-78); Albumin 3.9 g/dL (3.4-5.0); Anion Gap 4 meq/L (5-15); Aspartate Aminotransferase 16 U/L (15-37); Blood Urea Nitrogen 30 mg/dL (7-18); Calcium 9.1 mg/dL (8.5-10.1); Chloride 105 meq/L (98-107); Glomerular Filtration Rate 57 mL/min (>89); Glucose,Random 132 mg/dL (74-106); Lipase 49 U/L (73-393); Potassium 4.1 meq/L (3.5-5.1); Sodium 140 meq/L (136-145)
[2018-04-12 08:23] LABS: Alkaline Phosphatase 69 U/L (45-117); Total Protein 6.5 g/dL (6.4-8.2)
--- NOTE | 2018-04-12 08:34 | ED ---
HPI General Chief complaint: Abdominal Pain Stated complaint: Abd Pain Time Seen by Provider: 04/12/18 07:27 Source: patient, EMS, RN notes reviewed and old records reviewed Mode of arrival: EMS History of Present Illness HPI narrative: 87yM presenting with abdominal pain. The patient states that last night around 8 PM he began to have sudden-onset "sharp" epigastric pain which is constant, non-radiating, not made better or worse by anything, moderate intensity, associated with nausea. Denies fever or chills, chest pain, cough, diarrhea, or dysuria. History of myasthenia gravis, no recent weakness, no changes in doses/ missed doses of medications. Has required blood transfusion in the past secondary to plasmapheresis, has not required plasmapheresis since August of this year. Also h/o colon CA s/p colon and liver resection, not currently being treated. Related Data Home Medications Medication Instructions Recorded Confirmed alprazolam 0.25 mg PO DAILY PRN 04/12/18 04/12/18 cholecalciferol (vitamin D3) 2,000 unit PO DAILY 04/12/18 04/12/18 docusate sodium 100 mg PO BID 04/12/18 04/12/18 furosemide 20 mg PO DAILY PRN 04/12/18 04/12/18 leuprolide (3 month) 11.25 mg IM [id number] 04/12/18 04/12/18 multivitamin with minerals 1 tab PO BID 04/12/18 04/12/18 mycophenolate mofetil 500 mg PO BID 04/12/18 04/12/18 pyridostigmine bromide 120 mg PO TID 04/12/18 04/12/18 Allergies Allergy/AdvReac Type Severity Reaction Status Date / Time Sulfa (Sulfonamide Allergy Severe Flushing Verified 04/12/18 07:15 Antibiotics) lorazepam Allergy Intermediate Psychosis Verified 04/12/18 07:15 prochlorperazine Allergy Unknown JITTERY Verified 04/12/18 07:15 Review of Systems ROS: all other systems reviewed are negative Constitutional Denies fever(s) and Denies weakness Eyes Denies blurry vision ENT Denies nasal congestion Cardiovascular Denies chest pain Respiratory Denies cough Gastrointestinal Reports abdominal pain and Reports nausea Genitourinary Denies dysuria Musculoskeletal Denies back pain Neurologic Denies confusion Psychiatric Denies confusion PMFSH History History Provided By: Patient Medical History Medical History Angioneurotic edema (Acute) Bicytopenia (Acute) Carpal tunnel syndrome (Acute) Colon cancer (Acute) H/O small bowel obstruction (Acute) Hypertension (Acute) Inguinal hernia (Acute) Iron deficiency anemia (Acute) Liver cancer (Acute) Lumbago (Acute) Malignant neoplasm of prostate (Acute) Myasthenia gravis (Acute) Pleural effusion (Acute) Pneumonia (Acute) Thrombocytopenia (Acute) Surgical History Surgical History H/O eye surgery (Acute) History of colon resection (Acute) Social History Social History Substance History: No History of Abuse Second Hand Smoke Exposure: No Smoking Status: Never smoker How Often Do You Have a Drink Containing Alcohol: Never Recent Travel in [facility] within the Last 8 Weeks: No Recent Out of Country Travel within the Last 8 Weeks: No Immunization History Tetanus Immunization: <5 Years Hx Influenza Vaccine This Season: Yes Exam Const General: healthy appearing and no acute distress HENMT Head: normocephalic and atraumatic Face and sinus: normal facial exam Eyes General: appearance normal, both eyes and all related structures Pupils: PERRL Chest Chest: normal inspection of the chest Resp Effort & Inspection: normal respiratory effort Auscultation: no rhonchi and no wheezes Cardio Rate: regular rate Rhythm: regular rhythm GI Other: Soft, non-distended, mild epigastric tenderness, no McBurney's point tenderness, negative Santos's sign, no guarding or rebound Skin General: no rashes or lesions noted Neuro General: alert, awake, oriented x3 and no focal motor deficits Other: Motor strength 5/5 in extremities, no bulbar weakness Psych Affect: normal affect Course Consultations Consultation #1: Case discussed with Dr. Melgar (general surgery), who will consult. Time: 11:36 Initial Documented Vital Signs Temperature 97.7 F 04/12/18 07:09 Pulse Rate 66 04/12/18 07:09 Respiratory Rate 17 04/12/18 07:09 Blood Pressure 170/75 H 04/12/18 07:09 Pulse Oximetry 99 04/12/18 07:09 Last Documented Vital Signs Temperature 97.7 F 04/12/18 07:09 Pulse Rate 71 04/12/18 11:15 Respiratory Rate 18 04/12/18 11:15 Blood Pressure 147/66 H 04/12/18 11:15 Pulse Oximetry 98 04/12/18 11:15 Medical Decision Making MDM Narrative Medical decision making narrative: Assessment: 87yM presenting with abdominal pain Plan: EKG and monitor Antiemetics, IV fluids Labs CT abd/ pelvis Addendum: Patient found to have early vs partial small bowel obstruction; he will need NG tube suctioning, IV fluids, general surgery consult, and re- evaluation at frequent intervals. Case discussed with Dr. Jalloh ( resident), patient to be admitted to Dr. Hutchins. I informed the patient of the results of all labs and imaging as well as plan to keep him in the hospital; he understands and agrees. Medical Screen Exam Complete: Yes Emergency Medical Condition: Yes Differential Diagnosis Differential Diagnosis: Differential diagnosis includes, but is not limited to: gastritis, pancreatitis, biliary pathology, SBO, colitis, diverticulitis, arrhythmia, ACS Medical Records Medical records reviewed: Yes I reviewed the patient's medical records. Lab Data Lab results reviewed: Yes I reviewed the patient's lab results. Result diagrams: 04/12/18 07:40 04/12/18 07:40 Lab Results 04/12/18 04/12/18 04/12/18 Range/Units 07:40 07:40 08:22 WBC 4.3 (4.0-11.0) th/mm3 RBC 4.31 L (4.50-5.90) mil/mm3 Hgb 12.1 L (13.0-17.0) gm/dL Hct 37.4 L (39.0-51.0) % MCV 86.8 (80.0-100.0) fL MCH 28.0 (27.0-34.0) pg MCHC 32.3 (32.0-36.0) % RDW 22.8 H (11.6-17.2) % Plt Count 125 L (150-450) th/mm3 MPV 8.1 (7.0-11.0) fL Prelim Diff (Auto) Slide review pending Neut % (Auto) 80.8 H (16.0-70.0) % Lymph % (Auto) 6.3 L (9.0-44.0) % [place] % (Auto) 11.3 H (0.0-8.0) % Eos % (Auto) 1.2 (0.0-4.0) % Baso % (Auto) 0.4 (0.0-2.0) % Neut # (Auto) 3.5 (1.8-7.7) th/mm3 Lymph # (Auto) 0.3 L (1.0-4.8) th/mm3 [place] # (Auto) 0.5 (0.0-0.9) th/mm3 Eos # (Auto) 0.1 (0.0-0.4) th/mm3 Baso # (Auto) 0.0 (0.0-0.2) th/mm3 WBC Differential . Diff Scan Auto diff confirmed Differential Comment . Platelet Estimate Low L (Normal) Platelet Morphology Normal (Normal) Ovalocytes 1+ H (None) Acanthocytes (Spur) Occ H (None) Keratocytes Occ H (None) Sodium 140 (136-145) meq/L Potassium 4.1 (3.5-5.1) meq/L Chloride 105 (98-107) meq/L Carbon Dioxide 31.0 (21.0-32.0) meq/L Anion Gap 4 L (5-15) meq/L BUN 30 H (7-18) mg/dL Creatinine 1.21 (0.60-1.30) mg/dL Estimated GFR 57 L (>89) mL/min Random Glucose 132 H (74-106) mg/dL Calcium 9.1 (8.5-10.1) mg/dL Total Bilirubin 1.4 H (0.2-1.0) mg/dL AST 16 (15-37) U/L ALT 18 (12-78) U/L Alkaline Phosphatase 69 (45-117) U/L Total Protein 6.5 (6.4-8.2) g/dL Albumin 3.9 (3.4-5.0) g/dL Lipase 49 L (73-393) U/L Urine Color Yellow (Yellw/Straw) Urine Clarity Clear (Clear) Urine pH 6.0 (5.0-8.5) Ur Specific [place] 1.018 (1.002-1.035) Urine Protein Negative (Neg-Trace) mg/dL Urine Glucose (UA) Negative (Negative) mg/dL Urine Ketones Negative (Negative) mg/dL Urine Occult Blood Negative (Negative) Urine Nitrate Negative (Negative) Urine Bilirubin Negative (Negative) Urine Urobilinogen Less than 2 (Less than 2) mg/dL Ur Leukocyte Esterase Negative (Negative) Urine RBC 1 (0-3) /hpf Urine WBC Less than 1 (0-5) /hpf Ur Squamous Epith Cells <1 (0-5) /hpf Micro UA Comment Culture not ind Urine Culture Comments Culture not ind Imaging Data Radiologist's impression: Abdomen/Pelvis CT 04/12/18 07:45 CONCLUSION: 1. Multiple mildly dilated small bowel loops in the midabdomen, appearance worrisome for early or partial small bowel obstruction. 2. Right pleural effusion which was present previously. ECG Data Attestation: I personally reviewed and interpreted this ECG as follows: Interpretation: Rate: 65 BPM Rhythm: Sinus [place]: Normal Intervals: Normal intervals, no blocks, QTc 440 ms Q waves: III T waves: Inverted in III ST segments: No elevations or depressions Impression: Non-specific EKG, no changes as compared to EKG from 02/11/2018. Discharge Plan Physicians Team ED Provider: Lucia Monreal Primary Care Provider: Chris Doherty Other Providers: Adeel Melgar Rxs /Orders / Referrals /Forms Prescriptions: No Action leuprolide (3 month) 11.25 mg Syringe Kit 11.25 mg IM [id number] RF: 0 mycophenolate mofetil 500 mg Tablet 500 mg PO BID RF: 0 pyridostigmine bromide 60 mg Tablet 120 mg PO TID RF: 0 furosemide 20 mg Tablet 20 mg PO DAILY PRN (Reason: Shortness Of Breath) RF: 0 multivitamin with minerals Tablet 1 tab PO BID RF: 0 docusate sodium 100 mg Tablet 100 mg PO BID RF: 0 alprazolam 0.25 mg Tablet,Disintegrating 0.25 mg PO DAILY PRN (Reason: Anxiety) RF: 0 cholecalciferol (vitamin D3) 2,000 unit Capsule 2,000 unit PO DAILY RF: 0 Discharge Interventions Interventions: Vital Signs Last Done: 04/12/18 11:15 Status ED Status: With Doctor
[2018-04-12 08:40] LABS: Bilirubin,Urine Negative (Negative); Clarity,Urine Clear (Clear); Color,Urine Yellow (Yellw/Straw); Glucose,Urine (UA) Negative (Negative); Leukocyte Esterase,Urine Negative (Negative); Nitrite,Urine Negative (Negative); Specific Gravity,Urine 1.018 (1.002-1.035); Squamous Epithelial Cell,Urine <1 /hpf (0-5)
[2018-04-12 08:40] LABS: Acanthocytes Occ; Ovalocytes 1+
[2018-04-12 08:41] LABS: Platelet Morphology Normal (Normal)
[2018-04-12] MEDS ORDERED: Diatrizoate Meglum/Diatrizoate Sod Liq 9 ML UDC PO ONE (09:15)
--- NOTE | 2018-04-12 11:16 | CT ---
EXAM DATE: 04/12/2018 11:06 AM EDT AGE/SEX: 87 years / Male INDICATIONS: Abdominal pain, nausea since last night. CLINICAL DATA: This is the patient's initial encounter. Patient reports that signs and symptoms have been present for 1 day and indicates a pain score of 3/10. MEDICAL/SURGICAL HISTORY: Carcinoma, colon. Carcinoma, prostatic. Hypertension. None. ORAL CONTRAST: No oral contrast ingested. RADIATION DOSE: 6.66 CTDI (mGy) COMPARISON: [facility] – [place] ABDOMEN & PELVIS W/O CONTRAST, 08/27/2017. . TECHNIQUE: Multiple contiguous axial images were obtained through the abdomen and pelvis following b olus infusion of 96 ml Omnipaque 350 (iohexol) nonionic water-soluble contrast as a single exam dos e. No oral contrast ingested. Using automated exposure control and adjustment of the mA and/or kV ac cording to patient size, radiation dose was kept as low as reasonably achievable to obtain optimal di agnostic quality images. DICOM format image data is available electronically for review and comparis on. FINDINGS: Lower Lungs: Small right pleural effusion and mild parenchymal opacity at the right lung base. Liver: Previous right lobectomy. Remaining liver parenchyma is unremarkable with no evidence of mass or ductal dilatation. Spleen: Scattered granulomatous calcifications. Small nonspecific hypodensity in the lateral periphe ry of the inferior aspect of the spleen may be a small splenic infarction. Pancreas: Unremarkable without mass or calcification. Kidneys: Normal in size and shape. No evidence of mass or hydronephrosis. Adrenal Glands: Unremarkable. Aorta: The aorta and proximal iliac vessels are grossly unremarkable without aneurysmal dilation. Bowel/Mesentery: Several loops of mildly dilated small bowel in the mid abdomen, appearance concerni ng for early or partial small bowel obstruction. The colon is nondilated throughout. Abdominal Wall: Multifocal ventral abdominal wall hernia defects including a small defect in the sup raumbilical midline which contains a knuckle of colon. No definite evidence of incarceration or assoc iated obstruction. Retroperitoneum: No evidence of adenopathy in the retrocrural, para-aortic, or deep pelvic regions. Bladder: Contours are smooth. Reproductive Organs: No abnormal masses or calcifications seen. Inguinal: Small fluid containing left inguinal hernia. Bony Structures: Unremarkable. CONCLUSION: 1. Multiple mildly dilated small bowel loops in the midabdomen, appearance worrisome for early or pa rtial small bowel obstruction. 2. Right pleural effusion which was present previously. Electronically signed by: Jose David Mccoy MD 04/12/2018 11:15 AM EDT
--- NOTE | 2018-04-12 11:47 | ECG ---
Date Performed: 04/12/2018 Time Performed: 07:17:29 PTAGE: 87 years EKG: Sinus rhythm RIGHT BUNDLE BRANCH BLOCK ABNORMAL ECG PREVIOUS TRACING : 02/11/2018 13.36 No significant change from previous tracing noted. DOCTOR: Harvinder Chu Interpretating Date/Time 04/12/2018 11:43:18
--- NOTE | 2018-04-12 12:18 | P.HPFP ---
History of Present Illness Primary Care Physician: Chris Doherty MD <LisetAlecPerla René 04/13/18 12:49> Chris Doherty MD <Merlyn Jalloh 04/12/18 12:18> History of Present Illness: Mr. Peters is a 87yo white male with past medical history of colon cancer and myasthenia gravis presenting to the ED with abdominal pain. He states that this pain started last night around 1999. He describes it as a 10/10 sharp pain located around his umbilicus, nonradiating, nothing makes it worse. It gradually got better, but this morning had gotten worse again. Tylenol also helped a little bit. He did have a bowel movement a few hours before the pain started. He had nausea, but no vomiting. He has a history of 2 bowel obstructions before, of which he states was cleared pretty quickly. Of note, was recently diagnosed with suspected strep throat (without testing) and was prescribed amoxicillin for 10 days. He is on day 7 of . <Jacob Jallohin Sally - 04/12/18 17:59> - Diagnosis (1) SBO (small bowel obstruction) (2) Myasthenia gravis (3) Hypertension (4) Nutrition, metabolism, and development symptoms (5) DVT prophylaxis <Perla Hutchins 04/13/18 12:49> (1) SBO (small bowel obstruction) (2) Myasthenia gravis (3) Hypertension (4) Nutrition, metabolism, and development symptoms (5) DVT prophylaxis <Jacob Jallohin Sally - 04/12/18 17:18> Inpatient Certification: I certify that the inpatient services were ordered in accordance with Medicare regulations governing the order. This includes certification that hospital inpatient services are reasonable and necessary and in the case of services not specified as inpatient-only under 42 CFR 419.22(n), that they are appropriately provided as inpatient services in accordance to with the 2-midnight benchmark under 43 CFR 412.3(e) <Fords BranchAlecPerla René 04/13/18 12:49> I certify that the inpatient services were ordered in accordance with Medicare regulations governing the order. This includes certification that hospital inpatient services are reasonable and necessary and in the case of services not specified as inpatient-only under 42 CFR 419.22(n), that they are appropriately provided as inpatient services in accordance to with the 2-midnight benchmark under 43 CFR 412.3(e) <Merlyn Jalloh 04/12/18 12:18> Review of Systems Constitutional: Denies chills, Denies fever(s), Denies night sweats <Merlyn Jalloh 04/12/18 12:18> Ears, Nose, Mouth, and Throat: Denies difficulty swallowing, Denies pain with swallowing <Merlyn Jalloh 04/12/18 12:18> Cardiovascular: Denies chest pain <Merlyn Jalloh 04/12/18 12:18> Respiratory: Denies shortness of breath <Merlyn Jalloh 04/12/18 12:18> Gastrointestinal: Reports abdominal pain, Reports nausea, Denies black, tarry stools, Denies vomiting <Merlyn Jalloh 04/12/18 12:18> Musculoskeletal: Denies muscle weakness <Merlyn Jalloh 04/12/18 12:18> Neurologic: Denies tingling/numbness/burning sensations <Merlyn Jalloh 12:18> PMFSH - History History Provided By: Patient <Merlyn Jalloh 04/12/18 12:18> - Medical History Medical History: Medical History (Last Reviewed 04/12/18 @ 08:37 by Lucia Monreal DO) Angioneurotic edema Bicytopenia Carpal tunnel syndrome Colon cancer H/O small bowel obstruction Hypertension Inguinal hernia Iron deficiency anemia Liver cancer Lumbago Malignant neoplasm of prostate Myasthenia gravis Pleural effusion Pneumonia Thrombocytopenia <Perla Hutchins M - 04/13/18 12:49> Medical History (Last Reviewed 04/12/18 @ 08:37 by Lucia Monreal DO) Angioneurotic edema Bicytopenia Carpal tunnel syndrome Colon cancer H/O small bowel obstruction Hypertension Inguinal hernia Iron deficiency anemia Liver cancer Lumbago Malignant neoplasm of prostate Myasthenia gravis Pleural effusion Pneumonia Thrombocytopenia <Merlyn Jalloh - 04/12/18 12:18> - Surgical History Surgical History: Surgical History (Last Reviewed 04/12/18 @ 08:37 by Lucia Monreal DO) H/O eye surgery History of colon resection <Perla Hutchins - 04/13/18 12:49> Surgical History (Last Reviewed 04/12/18 @ 08:37 by Lucia Monreal DO) H/O eye surgery History of colon resection <Merlyn Jalloh - 04/12/18 12:18> - Tobacco History Second Hand Smoke Exposure: No <Merlyn Jalloh - 04/12/18 12:18> Smoking Status: Never smoker <Merlyn Jalloh - 04/12/18 12:18> - Alcohol History How Often Do You Have a Drink Containing Alcohol: Never <Merlyn Jalloh - 12:18> - Substance Use History Substance History: No History of Abuse <Merlyn Jalloh - 04/12/18 12:18> - Travel History Recent Travel in the [facility] Within the Last 8 Weeks: No <Merlyn Jalloh - 04/12/18 12:18> Recent Travel Out of the Country Within the Last 8 Weeks: No <Merlyn Jalloh - 04/12/18 12:18> - Immunization History Tetanus Immunization: <5 Years <Merlyn Jalloh - 04/12/18 12:18> Hx Influenza Vaccine This Season: Yes <Merlyn Jalloh - 04/12/18 12:18> Medications and Allergies Allergies Allergy/AdvReac Type Severity Reaction Status Date / Time Sulfa (Sulfonamide Allergy Severe Flushing Verified 04/12/18 07:15 Antibiotics) lorazepam Allergy Intermediate Psychosis Verified 04/12/18 07:15 prochlorperazine Allergy Unknown JITTERY Verified 04/12/18 07:15 <Perla Hutchins - 04/13/18 12:49> Home Medications Medication Instructions Recorded Confirmed Type alprazolam 0.25 mg PO DAILY PRN 04/12/18 04/12/18 History cholecalciferol (vitamin D3) 2,000 unit PO DAILY 04/12/18 04/12/18 History docusate sodium 100 mg PO BID 04/12/18 04/12/18 History furosemide 20 mg PO DAILY PRN 04/12/18 04/12/18 History leuprolide (3 month) 11.25 mg IM [id number] 04/12/18 04/12/18 History multivitamin with minerals 1 tab PO BID 04/12/18 04/12/18 History mycophenolate mofetil 500 mg PO BID 04/12/18 04/12/18 History pyridostigmine bromide 120 mg PO TID 04/12/18 04/12/18 History <Perla Hutchins M - 04/13/18 12:49> Active Medications: Active Medications Acetaminophen (Tylenol) 650 mg PO Q4H PRN PRN Reason: Temp > 100.4 Alprazolam (Xanax) 0.25 mg PO DAILY PRN PRN Reason: ANXIETY Last Admin: 04/13/18 02:13 Dose: 0.25 mg Amoxicillin (Amoxil) 500 mg PO BID [facility] Stop: 04/15/18 23:59 Last Admin: 04/13/18 08:57 Dose: 500 mg Furosemide (Lasix) 20 mg PO DAILY PRN PRN Reason: Shortness Of Breath Sodium Chloride (Ns Inj) 1,000 mls @ 115 mls/hr IV.CONT .Q8H42M [facility] Last Admin: 04/13/18 07:21 Dose: 115 mls/hr Acetaminophen (Ofirmev Inj) 1,000 mg in 100 mls @ 400 mls/hr IV.SIG Q6H PRN PRN Reason: PAIN SCALE 1 TO 10 Mycophenolate Mofetil (Cellcept) 500 mg PO BID@0600,1800 [facility] Last Admin: 04/13/18 07:12 Dose: 500 mg Ondansetron HCl (Zofran Inj) 4 mg IV.PUSH Q6H PRN PRN Reason: NAUSEA OR VOMITING Pt Own Med: Leuprolide 11.25mg [id number] 1 each IM Q90D [facility] Pyridostigmine [place] (Mestinon) 120 mg PO TID [facility] Last Admin: 04/13/18 08:58 Dose: Not Given Sodium Chloride (Ns Flush) 2 ml IV.FLUSH PRN PRN PRN Reason: FLUSH AFTER USING IV ACCESS <Perla Hutchins M - 04/13/18 12:49> Active Medications Sodium Chloride (Ns Flush) 2 ml IV.FLUSH PRN PRN PRN Reason: FLUSH AFTER USING IV ACCESS <Merlyn Jalloh G - 04/12/18 12:18> Exam Vital signs: Vital Signs 04/12/18 13:09 04/12/18 16:00 04/12/18 20:00 Temperature 98.1 F 96.5 F L Pulse Rate 77 64 67 Respiratory Rate 18 16 18 Blood Pressure 180/81 H 140/66 165/76 H Pulse Oximetry 98 98 98 04/13/18 00:00 04/13/18 08:00 Temperature 97.6 F 97.8 F Pulse Rate 67 64 Respiratory Rate 18 17 Blood Pressure 159/72 H 147/67 H Pulse Oximetry 94 L 93 L Intake & Output 04/12/18 04/13/18 04/13/18 18:59 06:59 18:59 Intake Total 1000 / 1000 1999 Output Total 300 / 300 850 / 850 Balance -300 / -300 150 / 150 1999 Weight 75.75 kg Intake: IV 1000 / 1000 1999 NS Inj 1,000 ML @ 115 mls/hr IV 1000 / 1000 999 / 999 .CONT .Q8H42M [facility] Rx#:[id number] Output: Urine 300 / 300 850 / 850 <Perla Hutchins M - 04/13/18 12:49> Vital Signs 04/12/18 07:09 04/12/18 07:53 04/12/18 11:15 Temperature 97.7 F Pulse Rate 66 60 71 Respiratory Rate 17 17 18 Blood Pressure 170/75 H 137/64 147/66 H Pulse Oximetry 99 99 98 Intake & Output 04/11/18 04/12/18 04/12/18 18:59 06:59 18:59 Weight 75.75 kg <Merlyn Jalloh G - 04/12/18 12:18> Narrative: GENERAL: elderly white male laying in bed, in no acute distress SKIN: Warm and dry. HEAD: Atraumatic. Normocephalic. EYES: Pupils equal and round. No scleral icterus. No injection or drainage. ENT: No nasal bleeding or discharge. Mucous membranes pink and moist. No erythema of oropharynx. NECK: Trachea midline. No JVD. CARDIOVASCULAR: Regular rate and rhythm. RESPIRATORY: No accessory muscle use. Clear to auscultation. Breath sounds equal bilaterally. GASTROINTESTINAL: Abdomen soft, diffusely tender, nondistended. Active bowel sounds at LLQ. Hepatic and splenic margins not palpable. Visible surgical scars on abdomen. MUSCULOSKELETAL: Extremities without clubbing, cyanosis, or edema. No obvious deformities. NEUROLOGICAL: Awake and alert. No obvious cranial nerve deficits. Motor grossly within normal limits. Slightly slurred speech. PSYCHIATRIC: Appropriate mood and affect; insight and judgment normal. <Merlyn Jalloh - 04/12/18 17:59> Results - Labs Result diagrams: 04/13/18 04:57 04/13/18 04:57 <LisetPerla René - 04/13/18 12:49> Abnormal lab results 04/13/18 04/13/18 Range/Units 04:57 04:57 WBC 3.8 L (4.0-11.0) th/mm3 RBC 4.12 L (4.50-5.90) mil/mm3 Hgb 11.6 L (13.0-17.0) gm/dL Hct 35.4 L (39.0-51.0) % RDW 22.2 H (11.6-17.2) % Plt Count 109 L (150-450) th/mm3 Neut % (Auto) 79.8 H (16.0-70.0) % Lymph % (Auto) 7.8 L (9.0-44.0) % [place] % (Auto) 10.9 H (0.0-8.0) % Lymph # (Auto) 0.3 L (1.0-4.8) th/mm3 Platelet Estimate Low L (Normal) Chloride 108 H (98-107) meq/L Anion Gap 4 L (5-15) meq/L Estimated GFR 78 L (>89) mL/min Random Glucose 111 H (74-106) mg/dL Calcium 8.4 L (8.5-10.1) mg/dL Total Bilirubin 1.6 H (0.2-1.0) mg/dL Total Protein 5.9 L D (6.4-8.2) g/dL Short CBC 04/13/18 Range/Units 04:57 WBC 3.8 L (4.0-11.0) th/mm3 Hgb 11.6 L (13.0-17.0) gm/dL Hct 35.4 L (39.0-51.0) % Plt Count 109 L (150-450) th/mm3 BMP 04/13/18 04:57 Sodium 141 Potassium 3.8 Chloride 108 H Carbon Dioxide 28.9 BUN 17 Creatinine 0.92 Calcium 8.4 L Liver Function 04/13/18 Range/Units 04:57 Total Bilirubin 1.6 H (0.2-1.0) mg/dL AST 15 (15-37) U/L ALT 17 (12-78) U/L Alkaline Phosphatase 68 (45-117) U/L Albumin 3.4 (3.4-5.0) g/dL <Perla Hutchins - 04/13/18 12:49> Abnormal lab results 04/12/18 04/12/18 Range/Units 07:40 07:40 RBC 4.31 L (4.50-5.90) mil/mm3 Hgb 12.1 L (13.0-17.0) gm/dL Hct 37.4 L (39.0-51.0) % RDW 22.8 H (11.6-17.2) % Plt Count 125 L (150-450) th/mm3 Neut % (Auto) 80.8 H (16.0-70.0) % Lymph % (Auto) 6.3 L (9.0-44.0) % [place] % (Auto) 11.3 H (0.0-8.0) % Lymph # (Auto) 0.3 L (1.0-4.8) th/mm3 Platelet Estimate Low L (Normal) Ovalocytes 1+ H (None) Acanthocytes (Spur) Occ H (None) Keratocytes Occ H (None) Anion Gap 4 L (5-15) meq/L BUN 30 H (7-18) mg/dL Estimated GFR 57 L (>89) mL/min Random Glucose 132 H (74-106) mg/dL Total Bilirubin 1.4 H (0.2-1.0) mg/dL Lipase 49 L (73-393) U/L Short CBC 04/12/18 Range/Units 07:40 WBC 4.3 (4.0-11.0) th/mm3 Hgb 12.1 L (13.0-17.0) gm/dL Hct 37.4 L (39.0-51.0) % Plt Count 125 L (150-450) th/mm3 BMP 04/12/18 07:40 Sodium 140 Potassium 4.1 Chloride 105 Carbon Dioxide 31.0 BUN 30 H Creatinine 1.21 Calcium 9.1 Liver Function 04/12/18 Range/Units 07:40 Total Bilirubin 1.4 H (0.2-1.0) mg/dL AST 16 (15-37) U/L ALT 18 (12-78) U/L Alkaline Phosphatase 69 (45-117) U/L Albumin 3.9 (3.4-5.0) g/dL Urine 04/12/18 Range/Units 08:22 Urine Color Yellow (Yellw/Straw) Urine Clarity Clear (Clear) Urine pH 6.0 (5.0-8.5) Ur Specific [place] 1.018 (1.002-1.035) Urine Protein Negative (Neg-Trace) mg/dL Urine Glucose (UA) Negative (Negative) mg/dL <Merlyn Jalloh - 04/12/18 12:18> - Imaging Impressions Abdomen/Pelvis CT 04/12/18 07:45 CONCLUSION: 1. Multiple mildly dilated small bowel loops in the midabdomen, appearance worrisome for early or partial small bowel obstruction. 2. Right pleural effusion which was present previously. <Merlyn Jalloh - 04/12/18 12:18> Caprini VTE Risk Assessment Caprini VTE Risk Assessment: Moderate/High Risk (score >= 2) <Merlyn Jalloh - 04/12/18 17:59> Caprini Risk Assessment Model: Point Value = 1 Point Value = 2 Point Value = 3 Point Value = 5 Age 41-60 Minor surgery BMI > 25 kg/m2 Swollen legs Varicose veins or History of unexplained or recurrent spontaneous Oral contraceptives or hormone replacement Sepsis (< 1 month) Serious lung disease, including pneumonia (< 1 month) Abnormal pulmonary function Acute myocardial infarction Congestive heart failure (< 1 month) History of inflammatory bowel disease Medical patient at bed rest Age 61-74 Arthroscopic surgery Major open surgery (> 45 min) Laparoscopic surgery (> 45 min) Malignancy Confined to bed (> 72 hours) Immobilizing plaster cast Central venous access Age >= 75 History of VTE Family history of VTE Factor V Leiden Prothrombin [id number] Lupus anticoagulant Anticardiolipin antibodies Elevated serum homocysteine Heparin-induced thrombocytopenia Other congenital or acquired thrombophilia Stroke (< 1 month) Elective arthroplasty Hip, pelvis, or leg fracture Acute spinal cord injury (< 1 month) <Perla Hutchins - 04/13/18 12:49> Point Value = 1 Point Value = 2 Point Value = 3 Point Value = 5 Age 41-60 Minor surgery BMI > 25 kg/m2 Swollen legs Varicose veins or History of unexplained or recurrent spontaneous Oral contraceptives or hormone replacement Sepsis (< 1 month) Serious lung disease, including pneumonia (< 1 month) Abnormal pulmonary function Acute myocardial infarction Congestive heart failure (< 1 month) History of inflammatory bowel disease Medical patient at bed rest Age 61-74 Arthroscopic surgery Major open surgery (> 45 min) Laparoscopic surgery (> 45 min) Malignancy Confined to bed (> 72 hours) Immobilizing plaster cast Central venous access Age >= 75 History of VTE Family history of VTE Factor V Leiden Prothrombin [id number] Lupus anticoagulant Anticardiolipin antibodies Elevated serum homocysteine Heparin-induced thrombocytopenia Other congenital or acquired thrombophilia Stroke (< 1 month) Elective arthroplasty Hip, pelvis, or leg fracture Acute spinal cord injury (< 1 month) <Merlyn Jalloh - 04/12/18 12:18> Prophylaxis Regimen: Total Risk Factor Score Risk Level Prophylaxis Regimen 0-1 Low Early ambulation 2 Moderate Order ONE of the following: *Sequential Compression Device (SCD) *Heparin 5000 units SQ BID 3-4 Higher Order ONE of the following medications: *Heparin 5000 units SQ TID *Enoxaparin/Lovenox 40 mg SQ daily (WT < 150 kg, CrCl > 30 mL/min) *Enoxaparin/Lovenox 30 mg SQ daily (WT < 150 kg, CrCl > 10-29 mL/min) *Enoxaparin/Lovenox 30 mg SQ BID (WT < 150 kg, CrCl > 30 mL/min) AND/OR *Sequential Compression Device (SCD) 5 or more Highest Order ONE of the following medications: *Heparin 5000 units SQ TID (Preferred with Epidurals) *Enoxaparin/Lovenox 40 mg SQ daily (WT < 150 kg, CrCl > 30 mL/min) *Enoxaparin/Lovenox 30 mg SQ daily (WT < 150 kg, CrCl > 10-29 mL/min) *Enoxaparin/Lovenox 30 mg SQ BID (WT < 150 kg, CrCl > 30 mL/min) AND *Sequential Compression Device (SCD) <Perla Hutchins - 04/13/18 12:49> Total Risk Factor Score Risk Level Prophylaxis Regimen 0-1 Low Early ambulation 2 Moderate Order ONE of the following: *Sequential Compression Device (SCD) *Heparin 5000 units SQ BID 3-4 Higher Order ONE of the following medications: *Heparin 5000 units SQ TID *Enoxaparin/Lovenox 40 mg SQ daily (WT < 150 kg, CrCl > 30 mL/min) *Enoxaparin/Lovenox 30 mg SQ daily (WT < 150 kg, CrCl > 10-29 mL/min) *Enoxaparin/Lovenox 30 mg SQ BID (WT < 150 kg, CrCl > 30 mL/min) AND/OR *Sequential Compression Device (SCD) 5 or more Highest Order ONE of the following medications: *Heparin 5000 units SQ TID (Preferred with Epidurals) *Enoxaparin/Lovenox 40 mg SQ daily (WT < 150 kg, CrCl > 30 mL/min) *Enoxaparin/Lovenox 30 mg SQ daily (WT < 150 kg, CrCl > 10-29 mL/min) *Enoxaparin/Lovenox 30 mg SQ BID (WT < 150 kg, CrCl > 30 mL/min) AND *Sequential Compression Device (SCD) <Merlyn Jalloh G - 04/12/18 12:18> Assessment and Plan - Assessment (1) SBO (small bowel obstruction) Code(s): K56.609 - Unspecified intestinal obstruction, unspecified as to partial versus complete obstruction Status: Acute (2) Myasthenia gravis Code(s): G70.00 - Myasthenia gravis without (acute) exacerbation Status: Chronic (3) Hypertension Code(s): I10 - Essential (primary) hypertension Status: Chronic (4) Nutrition, metabolism, and development symptoms Code(s): R63.8 - Other symptoms and signs concerning food and fluid intake Status: Acute (5) DVT prophylaxis Status: Acute <Perla Hutchins - 04/13/18 12:49> (1) SBO (small bowel obstruction) Code(s): K56.609 - Unspecified intestinal obstruction, unspecified as to partial versus complete obstruction Status: Acute Plan: Patient with history of SBO 2 and with diffuse abdominal pain. CT abdomen pelvis on admission reveals multiple mildly dilated small bowel loops in the midabdomen, appearance worrisome for early or partial small bowel obstruction. Surgery consulted by ED, appreciate recommendations -NG tube placement N.p.o. NS at 115 mL's per hour Ofirmev IV for pain Monitor I's and O's (2) Myasthenia gravis Code(s): G70.00 - Myasthenia gravis without (acute) exacerbation Status: Chronic Plan: Continue at home medications: -CellCept 500 mg p.o. twice daily -Pyridostigmine bromide 120 mg p.o. 3 times daily (3) Hypertension Code(s): I10 - Essential (primary) hypertension Status: Chronic Plan: Continue at home medication of furosemide 20 mg p.o. daily as needed (4) Nutrition, metabolism, and development symptoms Code(s): R63.8 - Other symptoms and signs concerning food and fluid intake Status: Acute Plan: Fluids: NS @ 115ml/hr Electrolytes: monitor and replete as needed Nutrition: NPO (5) DVT prophylaxis Status: Acute Plan: DVT Prophylaxis: Early ambulation. bilateral SCDs <Merlyn Jalloh - 04/12/18 17:18> - Assessment and Plan 87yo white male with past medical history of colorectal cancer and myasthenia gravis presenting with abdominal pain. Imaging reveals a small bowel obstruction. Will be admitted to our inpatient service. <Merlyn Jalloh - 04/12/18 17:59> Discussed Condition With: Dr. Brittany Sullivan <Merlny Jalloh - 04/12/18 17:59> Discharge Planning: pending clinical course <Merlyn Jalloh 04/12/18 17:59> - Attending Attestation The exam, history, and the medical decision-making described in the above note were completed with the assistance of the resident physician. I reviewed and agree with the findings presented. I attest that I had a [id number] encounter with the patient on the same day, and personally performed and documented my assessment and findings in the medical record. He was seen on the day of admission. He did not seem to have any sort of serious small bowel obstruction. <Perla Hutchins - 04/13/18 12:49> <Perla Hutchins - Last Filed: 04/13/18 12:49> (3) Hypertension Qualifiers: Hypertension type: essential hypertension Qualified Code(s): I10 - Essential (primary) hypertension <LisetPerla M - Last Filed: 04/13/18 12:49> (3) Hypertension Qualifiers: Hypertension type: essential hypertension Qualified Code(s): I10 - Essential (primary) hypertension
[2018-04-12] MEDS ORDERED: Acetaminophen 325 MG Tablet PO PRN (12:33)
[2018-04-12] MEDS: Sod Chloride 0.9% Inj 1,000 ML IV.CONT SCH ×2 (13:00→23:09)
[2018-04-12] MEDS ORDERED: Furosemide 20 MG Tablet PO PRN (17:01)
[2018-04-12] MEDS ORDERED: LEUPROLIDE 11.25 MG IM SCH (18:00)
[2018-04-12] MEDS: Pyridostigmine Bromide 60 MG Tablet PO SCH (19:11)
[2018-04-13] MEDS: ALPRAZolam 0.25 MG Tablet PO PRN ×2 (02:13→22:33)
[2018-04-13 05:21] LABS: Baso % (Auto) 0.5 % (0.0-2.0); Hematocrit 35.4 % (39.0-51.0); Hemoglobin 11.6 gm/dL (13.0-17.0); Lymph # (Auto) 0.3 th/mm3 (1.0-4.8); Lymph % (Auto) 7.8 % (9.0-44.0); Mean Corpuscular HGB Conc 32.8 % (32.0-36.0); Mean Corpuscular Hemoglobin 28.2 pg (27.0-34.0); Mean Corpuscular Volume 85.9 fL (80.0-100.0); Mean Platelet Volume 8.1 fL (7.0-11.0); Mono # (Auto) 0.4 th/mm3 (0.0-0.9); Mono % (Auto) 10.9 % (0.0-8.0); Neut # (Auto) 3.1 th/mm3 (1.8-7.7); Neut % (Auto) 79.8 % (16.0-70.0); Platelet Count 109 th/mm3 (150-450); Red Blood Count 4.12 mil/mm3 (4.50-5.90); Red Cell Distribution Width 22.2 % (11.6-17.2); White Blood Count 3.8 th/mm3 (4.0-11.0)
[2018-04-13 05:38] LABS: Alanine Aminotransferase 17 U/L (12-78); Albumin 3.4 g/dL (3.4-5.0); Alkaline Phosphatase 68 U/L (45-117); Anion Gap 4 meq/L (5-15); Aspartate Aminotransferase 15 U/L (15-37); Blood Urea Nitrogen 17 mg/dL (7-18); Calcium 8.4 mg/dL (8.5-10.1); Carbon Dioxide 28.9 meq/L (21.0-32.0); Chloride 108 meq/L (98-107); Glomerular Filtration Rate 78 mL/min (>89); Glucose,Random 111 mg/dL (74-106); Potassium 3.8 meq/L (3.5-5.1); Sodium 141 meq/L (136-145); Total Protein 5.9 g/dL (6.4-8.2)
[2018-04-13] MEDS: Sod Chloride 0.9% Inj 1,000 ML IV.CONT SCH ×4 (07:12→22:34)
[2018-04-13 07:53] LABS: Platelet Morphology Normal (Normal)
[2018-04-13] MEDS: Pyridostigmine Bromide 60 MG Tablet PO SCH ×3 (08:58→17:34)
--- NOTE | 2018-04-13 09:01 | P.HPFP ---
History of Present Illness Primary Care Physician: Chris Doherty MD History of Present Illness: Mr. Peters is a 87yo white male with past medical history of remote colon cancer and myasthenia gravis presenting to the ED with abdominal pain. He states that this pain started the night before admission around 1999. He described it as a 10/10 sharp pain located around his umbilicus, nonradiating, nothing makes it worse. It gradually got better, but the morning of admission had gotten worse again. Tylenol also helped a little bit. He did have a bowel movement a few hours before the pain started. He had nausea, but no vomiting. He has a history of 2 bowel obstructions before, of which he states was cleared pretty quickly. Of note, was recently diagnosed with suspected strep throat (without testing) and was prescribed amoxicillin for 10 days. He is on day 7 of . When seen later in the evening and also this morning nothing has drained out of his NG tube. He reports passing a lot of gas studies hungry that he hopes he can get rid of his NG tube as soon as possible. - Diagnosis (1) SBO (small bowel obstruction) (2) Myasthenia gravis (3) Hypertension (4) Nutrition, metabolism, and development symptoms (5) DVT prophylaxis Inpatient Certification: I certify that the inpatient services were ordered in accordance with Medicare regulations governing the order. This includes certification that hospital inpatient services are reasonable and necessary and in the case of services not specified as inpatient-only under 42 CFR 419.22(n), that they are appropriately provided as inpatient services in accordance to with the 2-midnight benchmark under 43 CFR 412.3(e) Estimated Total Length of Stay (Days): 3 Plans for Post Hospital Care: Home Review of Systems Constitutional: Denies anorexia, Denies chills, Denies fatigue, Denies fever(s) , Denies headache(s) Eyes: Denies loss of vision Ears, Nose, Mouth, and Throat: Reports pain with swallowing (Due to his tube), Denies change in voice Cardiovascular: Denies chest pain, Denies chest pain at rest, Denies generalized swelling, Denies irregular heart rhythm, Denies shortness of breath with activity, Denies shortness of breath when lying down Respiratory: Denies chest congestion, Denies cough, Denies pain with cough, Denies shortness of breath Gastrointestinal: Reports abdominal pain, Reports cramping, Denies black, tarry stools, Denies bright, red blood in stools, Denies change in bowel habits, Denies constant urge to pass stool, Denies coffee ground vomit, Denies loose stools, Denies nausea, Denies vomiting Musculoskeletal: Denies abnormal walking, Denies limited joint movement, Denies numbness Skin/Breast: Denies unusual bruising Neurologic: Denies headache(s) [facility] - History History Provided By: Patient - Medical History Medical History: Medical History (Last Reviewed 04/12/18 @ 08:37 by Lucia Monreal DO) Angioneurotic edema Bicytopenia Carpal tunnel syndrome Colon cancer H/O small bowel obstruction Hypertension Inguinal hernia Iron deficiency anemia Liver cancer Lumbago Malignant neoplasm of prostate Myasthenia gravis Pleural effusion Pneumonia Thrombocytopenia - Surgical History Surgical History: Surgical History (Last Reviewed 04/12/18 @ 08:37 by Lucia Monreal DO) H/O eye surgery History of colon resection - Tobacco History Second Hand Smoke Exposure: No Smoking Status: Never smoker - Alcohol History How Often Do You Have a Drink Containing Alcohol: Never - Substance Use History Substance History: No History of Abuse - Travel History Recent Travel in the [place] Within the Last 8 Weeks: No Recent Travel Out of the Country Within the Last 8 Weeks: No - Immunization History Tetanus Immunization: <5 Years Hx Influenza Vaccine This Season: Yes Medications and Allergies Active Medications: Active Medications Acetaminophen (Tylenol) 650 mg PO Q4H PRN PRN Reason: Temp > 100.4 Alprazolam (Xanax) 0.25 mg PO DAILY PRN PRN Reason: ANXIETY Last Admin: 04/13/18 02:13 Dose: 0.25 mg Amoxicillin (Amoxil) 500 mg PO BID [facility] Stop: 04/15/18 23:59 Last Admin: 04/13/18 08:57 Dose: 500 mg Furosemide (Lasix) 20 mg PO DAILY PRN PRN Reason: Shortness Of Breath Sodium Chloride (Ns Inj) 1,000 mls @ 115 mls/hr IV.CONT .Q8H42M K[facility]AN[facility] Last Admin: 04/13/18 07:21 Dose: 115 mls/hr Acetaminophen (Ofirmev Inj) 1,000 mg in 100 mls @ 400 mls/hr IV.SIG Q6H PRN PRN Reason: PAIN SCALE 1 TO 10 Mycophenolate Mofetil (Cellcept) 500 mg PO BID@0600,1800 [facility] Last Admin: 04/13/18 07:12 Dose: 500 mg Ondansetron HCl (Zofran Inj) 4 mg IV.PUSH Q6H PRN PRN Reason: NAUSEA OR VOMITING Pt Own Med: Leuprolide 11.25mg K3sebfl 1 each IM Q90D [facility] Pyridostigmine Fyffe (Mestinon) 120 mg PO TID [facility] Last Admin: 04/13/18 08:58 Dose: Not Given Sodium Chloride (Ns Flush) 2 ml IV.FLUSH PRN PRN PRN Reason: FLUSH AFTER USING IV ACCESS Allergies Allergy/AdvReac Type Severity Reaction Status Date / Time Sulfa (Sulfonamide Allergy Severe Flushing Verified 04/12/18 07:15 Antibiotics) lorazepam Allergy Intermediate Psychosis Verified 04/12/18 07:15 prochlorperazine Allergy Unknown JITTERY Verified 04/12/18 07:15 Home Medications Medication Instructions Recorded Confirmed Type alprazolam 0.25 mg PO DAILY PRN 04/12/18 04/12/18 History cholecalciferol (vitamin D3) 2,000 unit PO DAILY 04/12/18 04/12/18 History docusate sodium 100 mg PO BID 04/12/18 04/12/18 History furosemide 20 mg PO DAILY PRN 04/12/18 04/12/18 History leuprolide (3 month) 11.25 mg IM [id number] 04/12/18 04/12/18 History multivitamin with minerals 1 tab PO BID 04/12/18 04/12/18 History mycophenolate mofetil 500 mg PO BID 04/12/18 04/12/18 History pyridostigmine bromide 120 mg PO TID 04/12/18 04/12/18 History Exam Vital signs: Vital Signs 04/12/18 11:15 04/12/18 13:09 04/12/18 16:00 Temperature 98.1 F Pulse Rate 71 77 64 Respiratory Rate 18 18 16 Blood Pressure 147/66 H 180/81 H 140/66 Pulse Oximetry 98 98 98 04/12/18 20:00 04/13/18 00:00 Temperature 96.5 F L 97.6 F Pulse Rate 67 67 Respiratory Rate 18 18 Blood Pressure 165/76 H 159/72 H Pulse Oximetry 98 94 L Intake & Output 04/12/18 04/13/18 04/13/18 18:59 06:59 18:59 Intake Total 1000 / 1000 1999 Output Total 300 / 300 850 / 850 Balance -300 / -300 150 / 150 1999 Weight 75.75 kg Intake: IV 1000 / 1000 1999 NS Inj 1,000 ML @ 115 mls/hr IV 1000 / 1000 999 / 999 .CONT .Q8H42M [facility] Rx#:[id number] Output: Urine 300 / 300 850 / 850 - Constitutional no acute distress, average body habitus, cooperative - Routine HEENT Exam Head: Present: normocephalic, atraumatic. Absent: facial swelling Eye: Present: EOMI, PERRL ENT: Present: external ear normal - Routine Neck Exam Present: supple, full ROM - Routine Respiratory Exam Present: CTA bilaterally. Absent: accessory muscle use, patient mechanically ventilated, respiratory distress, rhonchi - Routine Cardiovascular Exam Present: RRR. Absent: murmur, gallop, rubs - Routine Abdominal Exam Present: soft, normoactive bowel sounds. Absent: tenderness, distended, rebound , guarding - Routine Extremities Exam Absent: cyanosis, clubbing, edema - Routine Skin Exam Present: intact. Absent: cyanosis, erythema, dry - Routine Neurological Exam Present: alert, oriented X3, moving all extremities, normal speech Results - Labs Result diagrams: 04/13/18 04:57 04/13/18 04:57 Abnormal lab results 04/13/18 04/13/18 Range/Units 04:57 04:57 WBC 3.8 L (4.0-11.0) th/mm3 RBC 4.12 L (4.50-5.90) mil/mm3 Hgb 11.6 L (13.0-17.0) gm/dL Hct 35.4 L (39.0-51.0) % RDW 22.2 H (11.6-17.2) % Plt Count 109 L (150-450) th/mm3 Neut % (Auto) 79.8 H (16.0-70.0) % Lymph % (Auto) 7.8 L (9.0-44.0) % Floyd % (Auto) 10.9 H (0.0-8.0) % Lymph # (Auto) 0.3 L (1.0-4.8) th/mm3 Platelet Estimate Low L (Normal) Chloride 108 H (98-107) meq/L Anion Gap 4 L (5-15) meq/L Estimated GFR 78 L (>89) mL/min Random Glucose 111 H (74-106) mg/dL Calcium 8.4 L (8.5-10.1) mg/dL Total Bilirubin 1.6 H (0.2-1.0) mg/dL Total Protein 5.9 L D (6.4-8.2) g/dL Short CBC 04/13/18 Range/Units 04:57 WBC 3.8 L (4.0-11.0) th/mm3 Hgb 11.6 L (13.0-17.0) gm/dL Hct 35.4 L (39.0-51.0) % Plt Count 109 L (150-450) th/mm3 BMP 04/13/18 04:57 Sodium 141 Potassium 3.8 Chloride 108 H Carbon Dioxide 28.9 BUN 17 Creatinine 0.92 Calcium 8.4 L Liver Function 04/13/18 Range/Units 04:57 Total Bilirubin 1.6 H (0.2-1.0) mg/dL AST 15 (15-37) U/L ALT 17 (12-78) U/L Alkaline Phosphatase 68 (45-117) U/L Albumin 3.4 (3.4-5.0) g/dL - Imaging Impressions Abdomen/Pelvis CT 04/12/18 07:45 CONCLUSION: 1. Multiple mildly dilated small bowel loops in the midabdomen, appearance worrisome for early or partial small bowel obstruction. 2. Right pleural effusion which was present previously. Caprini VTE Risk Assessment Caprini VTE Risk Assessment: Moderate/High Risk (score >= 2) Caprini Risk Assessment Model: Point Value = 1 Point Value = 2 Point Value = 3 Point Value = 5 Age 41-60 Minor surgery BMI > 25 kg/m2 Swollen legs Varicose veins or History of unexplained or recurrent spontaneous Oral contraceptives or hormone replacement Sepsis (< 1 month) Serious lung disease, including pneumonia (< 1 month) Abnormal pulmonary function Acute myocardial infarction Congestive heart failure (< 1 month) History of inflammatory bowel disease Medical patient at bed rest Age 61-74 Arthroscopic surgery Major open surgery (> 45 min) Laparoscopic surgery (> 45 min) Malignancy Confined to bed (> 72 hours) Immobilizing plaster cast Central venous access Age >= 75 History of VTE Family history of VTE Factor V Leiden Prothrombin [id number] Lupus anticoagulant Anticardiolipin antibodies Elevated serum homocysteine Heparin-induced thrombocytopenia Other congenital or acquired thrombophilia Stroke (< 1 month) Elective arthroplasty Hip, pelvis, or leg fracture Acute spinal cord injury (< 1 month) Prophylaxis Regimen: Total Risk Factor Score Risk Level Prophylaxis Regimen 0-1 Low Early ambulation 2 Moderate Order ONE of the following: *Sequential Compression Device (SCD) *Heparin 5000 units SQ BID 3-4 Higher Order ONE of the following medications: *Heparin 5000 units SQ TID *Enoxaparin/Lovenox 40 mg SQ daily (WT < 150 kg, CrCl > 30 mL/min) *Enoxaparin/Lovenox 30 mg SQ daily (WT < 150 kg, CrCl > 10-29 mL/min) *Enoxaparin/Lovenox 30 mg SQ BID (WT < 150 kg, CrCl > 30 mL/min) AND/OR *Sequential Compression Device (SCD) 5 or more Highest Order ONE of the following medications: *Heparin 5000 units SQ TID (Preferred with Epidurals) *Enoxaparin/Lovenox 40 mg SQ daily (WT < 150 kg, CrCl > 30 mL/min) *Enoxaparin/Lovenox 30 mg SQ daily (WT < 150 kg, CrCl > 10-29 mL/min) *Enoxaparin/Lovenox 30 mg SQ BID (WT < 150 kg, CrCl > 30 mL/min) AND *Sequential Compression Device (SCD) Assessment and Plan - Assessment (1) SBO (small bowel obstruction) Code(s): K56.609 - Unspecified intestinal obstruction, unspecified as to partial versus complete obstruction Status: Acute Plan: Patient with history of SBO 2 and with diffuse abdominal pain. CT abdomen pelvis on admission reveals multiple mildly dilated small bowel loops in the midabdomen, appearance worrisome for early or partial small bowel obstruction. Surgery consulted by ED, appreciate recommendations -NG tube placement done in ED. It is draining nothing. He does not seem to have any sort of obstruction clinically this morning. N.p.o. hopefully his tube will be removed very soon and he will be able to start liquids and a regular diet. He states he is passing gas and he feels pretty much back to normal so hopefully he can go home a little bit later today versus tomorrow. NS at 115 mL's per hour Ofirmev IV for pain Monitor I's and O's (2) Myasthenia gravis Code(s): G70.00 - Myasthenia gravis without (acute) exacerbation Status: Chronic Plan: Continue at home medications: -CellCept 500 mg p.o. twice daily -Pyridostigmine bromide 120 mg p.o. 3 times daily He denies any exacerbation of his myasthenia gravis symptoms. (3) Hypertension Code(s): I10 - Essential (primary) hypertension Status: Chronic Plan: Continue at home medication of furosemide 20 mg p.o. daily as needed (4) Nutrition, metabolism, and development symptoms Code(s): R63.8 - Other symptoms and signs concerning food and fluid intake Status: Acute Plan: Fluids: NS @ 115ml/hr Electrolytes: monitor and replete as needed Nutrition: NPO. Hopefully he can start having liquids and regular diet soon. (5) DVT prophylaxis Status: Acute Plan: DVT Prophylaxis: Early ambulation. bilateral SCDs - Assessment and Plan 87yo white male with past medical history of colorectal cancer and myasthenia gravis presenting with abdominal pain. Imaging reveals a small bowel obstruction. Will be admitted to our inpatient service. H&P: Quality - VTE Deep Vein Thrombosis/Pulmonary Embolism Present on Admission: No (3) Hypertension Qualifiers: Hypertension type: essential hypertension Qualified Code(s): I10 - Essential (primary) hypertension
--- NOTE | 2018-04-13 10:53 | P.PNGS ---
Subjective Patient reports: feels better, pain is less, flatus Physical Exam Vital signs: Vital Signs 04/12/18 11:15 04/12/18 13:09 04/12/18 16:00 Temperature 98.1 F Pulse Rate 71 77 64 Respiratory Rate 18 18 16 Blood Pressure 147/66 H 180/81 H 140/66 Pulse Oximetry 98 98 98 04/12/18 20:00 04/13/18 00:00 04/13/18 08:00 Temperature 96.5 F L 97.6 F 97.8 F Pulse Rate 67 67 64 Respiratory Rate 18 18 17 Blood Pressure 165/76 H 159/72 H 147/67 H Pulse Oximetry 98 94 L 93 L Intake & Output 04/12/18 04/13/18 04/13/18 18:59 06:59 18:59 Intake Total 1000 / 1000 1999 Output Total 300 / 300 850 / 850 Balance -300 / -300 150 / 150 1999 Weight 75.75 kg Intake: IV 1000 / 1000 1999 NS Inj 1,000 ML @ 115 mls/hr IV 1000 / 1000 1000 / 1000 .CONT .Q8H42M [facility] Rx#:[id number] Output: Urine 300 / 300 850 / 850 - Routine Respiratory Exam Present: CTA bilaterally - Routine Abdominal Exam Present: soft (mild distension, improved mild ttp) Assessment and Plan - Plan Psbo, +flatus PLAN ng fell out this am- ok to leave out, ok for ice chips continue abd exams iv hydration will follow
--- NOTE | 2018-04-13 12:04 | MB ---
cc: Adeel Melgar MD DATE: 04/12/2018 CHIEF COMPLAINT: Abdominal pain, partial small-bowel obstruction. HISTORY OF PRESENT ILLNESS: The patient is an 87-year-old male with history of colon cancer in the , status post resection. Patient with metastasis to the liver, status post resection in 2000, along with secondary colon surgery in 2007 due to recurrence. The patient has had a history of small bowel obstructions, and presents with acute onset of abdominal pain. He states the pain started around 8 p.m. last night, and describes the initial as 10/10 pain, sharp, periumbilical, radiating to bilateral quadrants. Nothing really made it worse. It was better with lying still. He states the pain has been somewhat intermittent. He had nausea, but no vomiting, and, again, has had history of previous bowel obstructions before, treated nonoperatively; last one approximately 1 month ago. The patient also has a history of myasthenia gravis, currently on CellCept. The patient had further workup including laboratories, which were within normal limits and a CT scan showing concern for partial bowel obstruction and postsurgical changes. Surgery consulted. PAST MEDICAL HISTORY: Angioneurotic edema, carpal tunnel, colon cancer, history of small-bowel obstruction, hypertension, inguinal hernia, iron deficiency, liver cancer, lumbago, malignant prostate cancer, myasthenia gravis, pneumonia. PAST SURGICAL HISTORY: History of eye surgery, history of liver resection, history of colon resection. SOCIAL HISTORY: Denies smoking, ETOH, or IVDA. ALLERGIES: SULFA, LORAZEPAM, PROCHLORPERAZINE. MEDICATIONS: See EMR. FAMILY HISTORY: Denies diabetes or hypertension. REVIEW OF SYSTEMS: GENERAL: The patient denies eye pain, ear pain. NECK: Denies swelling or pain. LUNGS: Denies cough or wheeze. HEART: Denies palpitations or chest pain. ABDOMEN: Complains of abdominal pain, nausea. Denies vomiting. GENITOURINARY: Denies dysuria or hematuria. ENDOCRINE: Denies polyuria or polydipsia. INTEGUMENT: Denies any mass or lesions. NEUROLOGIC: Denies numbness or tingling. PSYCHIATRIC: Denies change in mood or sensorium. PHYSICAL EXAMINATION: GENERAL: No acute distress. VITAL SIGNS: Temperature 97.7, pulse 66, respirations 17, blood pressure 170/75, saturation 99%. HEENT: Pupils are round, reactive. NECK: Supple. Trachea midline. LUNGS: Clear to auscultation, bilateral expansion. HEART: S1, S2. Regular rate and rhythm. ABDOMEN: Soft, diffuse tenderness. No guarding, no rebound. Distended. EXTREMITIES: Warm and well perfused. NEUROLOGIC: AO x4, 5/5 motor in extremities. PSYCHIATRIC: Appropriate mood, appropriate affect. LABORATORY AND DIAGNOSTIC DATA: WBC 4.3, hemoglobin 12.1, hematocrit 37.4, platelets 125. Sodium 140, potassium 4.1, chloride 105, BUN is 30, creatinine 1.2. Bilirubin 1.4, AST 60, ALT 18, lipase 49. CT reviewed by myself showing multiple dilated small bowel loops, concerning for partial small bowel obstruction, small right pleural effusion. IMPRESSION: After full clinical realized laboratory workup, the patient with above issues. He is an 87-year-old male with a history of several abdominal surgeries, history of colon cancer, status post resection, appears to be in remission; presents with small bowel obstruction, partial. PLAN: We will continue to follow the patient closely. Recommended tube placement if patient vomits. Continue abdominal exams. Correct any abnormal electrolytes. IV fluids, n.p.o. We will attempt nonoperative management at this time. I will continue to follow. Thank you for the consultation. MD CAROL Lara/leroy , 10:51 AM , 11:01 AM
[2018-04-14] MEDS: Sod Chloride 0.9% Inj 1,000 ML IV.CONT SCH (07:16)
[2018-04-14] MEDS: Pyridostigmine Bromide 60 MG Tablet PO SCH ×3 (08:36→18:14)
--- NOTE | 2018-04-14 09:46 | P.PNFP ---
Subjective Interval history: Pt seen and examined this morning. He states that he is doing well. He had 6 BMs yesterday. He had some abdominal cramping while having the BMs and has a little abdominal pain at this time. Otherwise, no fevers/chills, no shortness of breath, no chest pain. He is urinating well. Eager to go home. <ShubhamMerlyn - 04/14/18 11:42> Results - Labs Result diagrams: 04/15/18 07:20 04/15/18 07:20 <LisetPerla René - 04/17/18 12:10> Physical Exam Vital signs: Vital Signs 04/13/18 12:00 04/13/18 16:00 04/13/18 20:00 Temperature 97.1 F L 96.8 F L 97.7 F Pulse Rate 56 L 60 54 L Respiratory Rate 18 17 20 Blood Pressure 135/60 170/74 H 161/66 H Pulse Oximetry 97 96 99 04/14/18 00:00 04/14/18 08:00 Temperature 97.5 F L 97.6 F Pulse Rate 65 56 L Respiratory Rate 20 17 Blood Pressure 145/67 H 142/68 H Pulse Oximetry 95 96 Intake & Output 04/13/18 04/14/18 04/14/18 18:59 06:59 18:59 Intake Total 3275 / 3275 1380 / 1380 1000 / 1000 Output Total 500 / 500 Balance 2775 / 2775 1380 / 1380 1000 / 1000 Weight 58 kg Intake: IV 3000 / 3000 1000 / 1000 1000 / 1000 NS Inj 1,000 ML @ 115 mls/hr IV 2000 / 2000 1000 / 1000 1000 / 1000 .CONT .Q8H42M [facility] Rx#:[id number] Oral 275 / 275 380 / 380 Output: Urine 500 / 500 Other: # Voids 3 3 Date of Last Bowel Movement 04/13/18 # Bowel Movements 2 <[place]boroJacob elamin Sally - 04/14/18 09:46> Narrative: GENERAL: elderly white male sitting in chair, in no acute distress SKIN: Warm and dry. HEAD: Atraumatic. Normocephalic. EYES: Pupils equal and round. No scleral icterus. No injection or drainage. ENT: No nasal bleeding or discharge. Mucous membranes pink and moist. No erythema of oropharynx. NECK: Trachea midline. No JVD. CARDIOVASCULAR: Regular rate and rhythm. RESPIRATORY: No accessory muscle use. Clear to auscultation. Breath sounds equal bilaterally. GASTROINTESTINAL: Abdomen soft, Nontender, nondistended. normoactive bowel sounds. Hepatic and splenic margins not palpable. Visible surgical scars on abdomen. MUSCULOSKELETAL: Extremities without clubbing, cyanosis, or edema. No obvious deformities. NEUROLOGICAL: Awake and alert. No obvious cranial nerve deficits. Motor grossly within normal limits. Slightly slurred speech. PSYCHIATRIC: Appropriate mood and affect; insight and judgment normal. <Merlyn Jalloh - 04/14/18 11:42> Assessment and Plan - Assessment (1) SBO (small bowel obstruction) Code(s): K56.609 - Unspecified intestinal obstruction, unspecified as to partial versus complete obstruction Status: Acute <Perla Hutchins - 04/17/18 12:10> (1) SBO (small bowel obstruction) Code(s): K56.609 - Unspecified intestinal obstruction, unspecified as to partial versus complete obstruction Status: Acute Plan: Patient with history of SBO 2 and with diffuse abdominal pain on admission. Had [address] abdomen pelvis on admission reveals multiple mildly dilated small bowel loops in the midabdomen, appearance worrisome for early or partial small bowel obstruction. Surgery consulted by ED, appreciate recommendations -NG tube placement done in ED d/c'd on 04/13. -Advanced to full liquid diet, may go to regular diet by dinner Ofirmev IV for pain Monitor I's and O's (2) Myasthenia gravis Code(s): G70.00 - Myasthenia gravis without (acute) exacerbation Status: Chronic Plan: Continue at home medications: -CellCept 500 mg p.o. twice daily -Pyridostigmine bromide 120 mg p.o. 3 times daily He denies any exacerbation of his myasthenia gravis symptoms. (3) Hypertension Code(s): I10 - Essential (primary) hypertension Status: Chronic Plan: Continue at home medication of furosemide 20 mg p.o. daily as needed (4) Nutrition, metabolism, and development symptoms Code(s): R63.8 - Other symptoms and signs concerning food and fluid intake Status: Acute Plan: Fluids: tolerating po Electrolytes: monitor and replete as needed Nutrition: Full liquids, advance as tolerated (5) DVT prophylaxis Status: Acute Plan: DVT Prophylaxis: Early ambulation. bilateral SCDs <Merlyn Jalloh - 04/14/18 14:35> - Assessment and Plan 87yo white male with past medical history of colorectal cancer and myasthenia gravis presenting with abdominal pain. Imaging reveals a small bowel obstruction. Will be admitted to our inpatient service. <ShubhamMerlyn Zavala - 04/14/18 09:46> Discharge Planning: pending clinical course <ShubhamJacobMerlyn G - 04/14/18 09:46> - Attending Attestation The exam, history, and the medical decision-making described in the above note were completed with the assistance of the resident physician. I reviewed and agree with the findings presented. I attest that I had a [id number] encounter with the patient on the same day, and personally performed and documented my assessment and findings in the medical record. He has done very well and is ready to go home. The only difficulty is he is asking when he could do to prevent this from happening again however I explained to him that I did not think that there was any specific dietary or other method to prevent small bowel obstructions from coming back. <Perla Hutchins M - 04/17/18 12:10> <Merlyn Jalloh G - Last Filed: 04/14/18 14:35> (3) Hypertension Qualifiers: Hypertension type: essential hypertension Qualified Code(s): I10 - Essential (primary) hypertension <Merlyn Jalloh G - Last Filed: 04/14/18 14:35> (3) Hypertension Qualifiers: Hypertension type: essential hypertension Qualified Code(s): I10 - Essential (primary) hypertension
--- NOTE | 2018-04-14 13:50 | P.PNGS ---
Subjective Patient reports: no new complaints, feels better, flatus, bowel movement Physical Exam Vital signs: Vital Signs 04/13/18 16:00 04/13/18 20:00 04/14/18 00:00 Temperature 96.8 F L 97.7 F 97.5 F L Pulse Rate 60 54 L 65 Respiratory Rate 17 20 20 Blood Pressure 170/74 H 161/66 H 145/67 H Pulse Oximetry 96 99 95 04/14/18 08:00 Temperature 97.6 F Pulse Rate 56 L Respiratory Rate 17 Blood Pressure 142/68 H Pulse Oximetry 96 Intake & Output 04/13/18 04/14/18 04/14/18 18:59 06:59 18:59 Intake Total 3275 / 3275 1380 / 1380 1300 / 1300 Output Total 500 / 500 Balance 2775 / 2775 1380 / 1380 1300 / 1300 Weight 58 kg Intake: IV 3000 / 3000 1000 / 1000 1000 / 1000 NS Inj 1,000 ML @ 115 mls/hr IV 2000 / 2000 1000 / 1000 1000 / 1000 .CONT .Q8H42M [facility] Rx#:[id number] Oral 275 / 275 380 / 380 300 / 300 Output: Urine 500 / 500 Other: # Voids 3 3 Date of Last Bowel Movement 04/13/18 04/14/18 # Bowel Movements 2 - Routine Abdominal Exam Present: soft (mild ttp, minimal distension) Assessment and Plan - Plan Psbo, +flatus PLAN full liq diet continue abd exams iv hydration will follow
[2018-04-14] MEDS: ALPRAZolam 0.25 MG Tablet PO PRN (22:35)
[2018-04-15 08:41] LABS: Baso % (Auto) 0.8 % (0.0-2.0); Eos # (Auto) 0.1 th/mm3 (0.0-0.4); Eos % (Auto) 4.5 % (0.0-4.0); Hematocrit 33.4 % (39.0-51.0); Hemoglobin 10.9 gm/dL (13.0-17.0); Lymph # (Auto) 0.3 th/mm3 (1.0-4.8); Lymph % (Auto) 13.6 % (9.0-44.0); Mean Corpuscular HGB Conc 32.7 % (32.0-36.0); Mean Corpuscular Hemoglobin 28.5 pg (27.0-34.0); Mean Corpuscular Volume 87.2 fL (80.0-100.0); Mean Platelet Volume 8.3 fL (7.0-11.0); Mono # (Auto) 0.3 th/mm3 (0.0-0.9); Mono % (Auto) 15.7 % (0.0-8.0); Neut # (Auto) 1.4 th/mm3 (1.8-7.7); Neut % (Auto) 65.4 % (16.0-70.0); Platelet Count 101 th/mm3 (150-450); Red Blood Count 3.83 mil/mm3 (4.50-5.90); Red Cell Distribution Width 21.6 % (11.6-17.2); White Blood Count 2.2 th/mm3 (4.0-11.0)
[2018-04-15 08:47] LABS: Albumin 3.3 g/dL (3.4-5.0); Anion Gap 5 meq/L (5-15); Aspartate Aminotransferase 23 U/L (15-37); Blood Urea Nitrogen 13 mg/dL (7-18); Calcium 8.4 mg/dL (8.5-10.1); Carbon Dioxide 29.6 meq/L (21.0-32.0); Chloride 107 meq/L (98-107); Glomerular Filtration Rate 72 mL/min (>89); Glucose,Random 98 mg/dL (74-106); Potassium 3.6 meq/L (3.5-5.1); Sodium 142 meq/L (136-145)
[2018-04-15 08:51] LABS: Alanine Aminotransferase 23 U/L (12-78); Alkaline Phosphatase 67 U/L (45-117); Total Protein 5.7 g/dL (6.4-8.2)
[2018-04-15] MEDS: Pyridostigmine Bromide 60 MG Tablet PO SCH (08:51)
--- NOTE | 2018-04-15 08:59 | P.PNFP ---
Subjective Interval history: Mr Smart is doing very well he has had no abdominal pain for days he had 2 soft bowel movements and is very hungry at this point. He wishes to go home after breakfast each. We discussed diet and I explained to him that with a bowel obstruction that no particular diet can prevent it or treated as it is an anatomical problem. He had no other complaints and all his questions were answered Results - Labs Result diagrams: 04/15/18 07:20 04/15/18 07:20 Abnormal lab results 04/15/18 04/15/18 Range/Units 07:20 07:20 WBC 2.2 L (4.0-11.0) th/mm3 RBC 3.83 L (4.50-5.90) mil/mm3 Hgb 10.9 L (13.0-17.0) gm/dL Hct 33.4 L (39.0-51.0) % RDW 21.6 H (11.6-17.2) % Plt Count 101 L (150-450) th/mm3 [place] % (Auto) 15.7 H (0.0-8.0) % Eos % (Auto) 4.5 H (0.0-4.0) % Neut # (Auto) 1.4 L (1.8-7.7) th/mm3 Lymph # (Auto) 0.3 L (1.0-4.8) th/mm3 Estimated GFR 72 L (>89) mL/min Calcium 8.4 L (8.5-10.1) mg/dL Total Bilirubin 1.1 H (0.2-1.0) mg/dL Total Protein 5.7 L (6.4-8.2) g/dL Albumin 3.3 L (3.4-5.0) g/dL Short CBC 04/15/18 Range/Units 07:20 WBC 2.2 L (4.0-11.0) th/mm3 Hgb 10.9 L (13.0-17.0) gm/dL Hct 33.4 L (39.0-51.0) % Plt Count 101 L (150-450) th/mm3 BMP 04/15/18 07:20 Sodium 142 Potassium 3.6 Chloride 107 Carbon Dioxide 29.6 BUN 13 Creatinine 0.98 Calcium 8.4 L Liver Function 04/15/18 Range/Units 07:20 Total Bilirubin 1.1 H (0.2-1.0) mg/dL AST 23 (15-37) U/L ALT 23 (12-78) U/L Alkaline Phosphatase 67 (45-117) U/L Albumin 3.3 L (3.4-5.0) g/dL Physical Exam Vital signs: Vital Signs 04/14/18 16:00 04/14/18 20:22 04/15/18 00:20 Temperature 97.5 F L 97.2 F L 97.9 F Pulse Rate 60 60 58 L Respiratory Rate 18 17 18 Blood Pressure 157/70 H 180/81 H 144/65 H Pulse Oximetry 100 96 96 04/15/18 08:00 Temperature 97.2 F L Pulse Rate 54 L Respiratory Rate 18 Blood Pressure 168/74 H Pulse Oximetry 98 Intake & Output 04/14/18 04/15/18 04/15/18 18:59 06:59 18:59 Intake Total 3220 / 3220 780 / 780 Balance 3220 / 3220 780 / 780 Weight 76 kg Intake: IV 1920 / 1920 NS Inj 1,000 ML @ 115 mls/hr IV 1920 / 1920 .CONT .Q8H42M [facility] Rx#:[id number] Oral 1300 / 1300 780 / 780 Other: # Voids 6 3 Date of Last Bowel Movement 04/14/18 - Constitutional no acute distress, cooperative - Routine HEENT Exam Head: Present: normocephalic, atraumatic. Absent: facial swelling Eye: Present: EOMI, PERRL ENT: Present: external ear normal - Routine Neck Exam Present: supple - Routine Respiratory Exam Present: CTA bilaterally. Absent: respiratory distress - Routine Cardiovascular Exam Present: RRR. Absent: murmur, gallop, rubs - Routine Abdominal Exam Present: soft, normoactive bowel sounds. Absent: tenderness, distended, rebound , guarding - Routine Skin Exam Present: intact, dry - Routine Neurological Exam Present: alert, oriented X3, moving all extremities. Absent: sensory deficit, motor deficit - Routine Psychiatric Exam Present: normal affect Assessment and Plan - Assessment (1) SBO (small bowel obstruction) Code(s): K56.609 - Unspecified intestinal obstruction, unspecified as to partial versus complete obstruction Status: Acute Plan: Patient with history of SBO 2 in the past and with diffuse abdominal pain on admission. Had multiple bowel movements over the past day or so CT abdomen pelvis on admission revealed multiple mildly dilated small bowel loops in the midabdomen, appearance worrisome for early or partial small bowel obstruction. Surgery consulted by ED, appreciate recommendations -NG tube placement done in ED d/c'd on 04/13. -Advanced to full liquid diet, may go to regular diet today Ofirmev IV for pain Monitor I's and O's Symptoms of all resolved and he wishes to go home today he will eat breakfast and be sure that he tolerates it. (2) Myasthenia gravis Code(s): G70.00 - Myasthenia gravis without (acute) exacerbation Status: Chronic Plan: Continue at home medications: -CellCept 500 mg p.o. twice daily -Pyridostigmine bromide 120 mg p.o. 3 times daily He denies any exacerbation of his myasthenia gravis symptoms. He had questions about his myasthenia medicines and whether they could be contributing to his current problems and I advised him to speak to his neurologist. (3) Hypertension Code(s): I10 - Essential (primary) hypertension Status: Chronic Plan: Continue at home medication of furosemide 20 mg p.o. daily as needed (4) Nutrition, metabolism, and development symptoms Code(s): R63.8 - Other symptoms and signs concerning food and fluid intake Status: Acute Plan: Fluids: tolerating po Electrolytes: monitor and replete as needed Nutrition: Regular diet (5) DVT prophylaxis Status: Acute Plan: DVT Prophylaxis: Early ambulation. bilateral SCDs - Assessment and Plan 87yo white male with past medical history of colorectal cancer and myasthenia gravis presenting with abdominal pain. Imaging reveals a small bowel obstruction. Will be admitted to our inpatient service. (3) Hypertension Qualifiers: Hypertension type: essential hypertension Qualified Code(s): I10 - Essential (primary) hypertension
--- NOTE | 2018-04-15 09:08 | P.DS ---
<Alma Delia Ulloa V - Last Filed: 04/15/18 09:08> Date of admission: 04/12/18 11:47 Primary care physician: Chris Doherty MD Attending physician on discharge: Perla Hutchins Anticipated date of discharge: 04/15/18 Brief History from admission: Mr. Peters is a 87yo white male with past medical history of remote colon cancer and myasthenia gravis presenting to the ED with abdominal pain. He states that this pain started the night before admission around 1999. He described it as a 10/10 sharp pain located around his umbilicus, nonradiating, nothing makes it worse. It gradually got better, but the morning of admission had gotten worse again. Tylenol also helped a little bit. He did have a bowel movement a few hours before the pain started. He had nausea, but no vomiting. He has a history of 2 bowel obstructions before, of which he states was cleared pretty quickly. Of note, was recently diagnosed with suspected strep throat (without testing) and was prescribed amoxicillin for 10 days. He is on day 7 of . When seen later in the evening and also this morning nothing has drained out of his NG tube. He reports passing a lot of gas studies hungry that he hopes he can get rid of his NG tube as soon as possible. DS: Diagnosis - Discharge Diagnosis (1) SBO (small bowel obstruction) Status: Acute DS: Summary Hospital Course: Mr Peters is an 87 yr old male with PMH of Myasthenia Gravis, hx of colon cancer w/ several abdominal surgeries, and hx of SB obstructions. He presented to the ED on 04/12 with severe abdominal pain and was found to have a partial SBO on CT scan. He was admitted to the inpatient service. Surgery was consulted ; an NG tube was placed, and managed conservatively. Mr. Peters responded well to conservative treatment and had several bowel movements on 04/13. On 04/14 he was advanced to a liquid diet, which he tolerated well. On 04/15 he was placed on a regular diet, and discharged home. On labs, pt was found to have low WBC, which could be attributed to CellCept medication. This results were also observed on his previous hospitalization on January. Outpatient labs were ordered for Tuesday 04/17, and follow up with his PCP. - Time Spent with Patient Total time spent providing and/or coordinating discharge services: Less than 30 minutes - Quality: VTE Deep Vein Thrombosis/Pulmonary Embolism Present on Admission: No Exam Vital signs: Vital Signs 04/14/18 16:00 04/14/18 20:22 04/15/18 00:20 Temperature 97.5 F L 97.2 F L 97.9 F Pulse Rate 60 60 58 L Respiratory Rate 18 17 18 Blood Pressure 157/70 H 180/81 H 144/65 H Pulse Oximetry 100 96 96 04/15/18 08:00 Temperature 97.2 F L Pulse Rate 54 L Respiratory Rate 18 Blood Pressure 168/74 H Pulse Oximetry 98 Intake & Output 04/14/18 04/15/18 04/15/18 18:59 06:59 18:59 Intake Total 3220 / 3220 780 / 780 Balance 3220 / 3220 780 / 780 Weight 76 kg Intake: IV 1919 / 0 NS Inj 1,000 ML @ 115 mls/hr IV 1919 / 1920 .CONT .Q8H42M [facility] Rx#:[id number] Oral 1300 / 1300 780 / 780 Other: # Voids 6 3 Date of Last Bowel Movement 04/14/18 Narrative: GENERAL: Well-nourished, well-developed patient. SKIN: Warm and dry. HEAD: Normocephalic and atraumatic. EYES: No scleral icterus. No injection or drainage. ENT: No nasal drainage noted. Airway patent. CARDIOVASCULAR: Regular rate and rhythm without murmurs, gallops, or rubs. RESPIRATORY: Breath sounds equal bilaterally. No accessory muscle use. ABDOMEN/GI: Abdomen soft, non-tender, bowel sounds present, no rebound, no guarding NEUROLOGICAL: Awake and alert. Motor and sensory grossly within normal limits. Normal speech. Results Procedures completed during hospitalization: None Completed studies during hospitalization: CT scan of abdomen Labs on day of discharge: Labs from last 24 hours 04/15/18 04/15/18 07:20 07:20 WBC 2.2 L RBC 3.83 L Hgb 10.9 L Hct 33.4 L MCV 87.2 MCH 28.5 MCHC 32.7 RDW 21.6 H Plt Count 101 L MPV 8.3 Neut % (Auto) 65.4 Lymph % (Auto) 13.6 [place] % (Auto) 15.7 H Eos % (Auto) 4.5 H Baso % (Auto) 0.8 Neut # (Auto) 1.4 L Lymph # (Auto) 0.3 L [place] # (Auto) 0.3 Eos # (Auto) 0.1 Baso # (Auto) 0.0 WBC Differential . Differential Comment Auto diff final Sodium 142 Potassium 3.6 Chloride 107 Carbon Dioxide 29.6 Anion Gap 5 BUN 13 Creatinine 0.98 Estimated GFR 72 L Random Glucose 98 Calcium 8.4 L Total Bilirubin 1.1 H AST 23 ALT 23 Alkaline Phosphatase 67 Total Protein 5.7 L Albumin 3.3 L - Impressions ITS Impressions Abdomen/Pelvis CT 04/12/18 07:45 CONCLUSION: 1. Multiple mildly dilated small bowel loops in the midabdomen, appearance worrisome for early or partial small bowel obstruction. 2. Right pleural effusion which was present previously. <Perla Hutchins - Last Filed: 04/17/18 12:13> Date of admission: 04/12/18 11:47 Primary care physician: Chris Doherty MD DS: Diagnosis - Discharge Diagnosis (1) SBO (small bowel obstruction) Status: Acute DS: Summary - Time Spent with Patient Total time spent providing and/or coordinating discharge services: Results - Impressions ITS Impressions Abdomen/Pelvis CT 04/12/18 07:45 CONCLUSION: 1. Multiple mildly dilated small bowel loops in the midabdomen, appearance worrisome for early or partial small bowel obstruction. 2. Right pleural effusion which was present previously. Attestation Attestation: The exam, history, and the medical decision-making described in the above note were completed with the assistance of the resident physician. I reviewed and agree with the findings presented. I attest that I had a [id number] encounter with the patient on the same day, and personally performed and documented my assessment and findings in the medical record. Discussed with Mr. Peters on that his white count had dropped since he came into the hospital. He explained that the cells drops his white count which is what we suspected and that as long as his white count is somewhere in the 2 range aiming for about 2.6 that that is considered fine for him. He will have labs ordered for next week just to verify that he is not continuing to decline. Discharge Plan - Discharge Order Discharge Orders: Discharge Order (Routine); Ordered 04/15/18 Ordered By: Cristal Brittany Nina - Physicians Team Primary Care Provider: Chris Doherty Attending Provider: Perla Hutchins Other Providers: Adeel Melgar MD
--- NOTE | 2018-04-15 10:28 | P.PNGS ---
Subjective Patient reports: feels better, flatus, bowel movement (eating regular breakfast , wants to go home, No N/V) Physical Exam Vital signs: Vital Signs 04/14/18 16:00 04/14/18 20:22 04/15/18 00:20 Temperature 97.5 F L 97.2 F L 97.9 F Pulse Rate 60 60 58 L Respiratory Rate 18 17 18 Blood Pressure 157/70 H 180/81 H 144/65 H Pulse Oximetry 100 96 96 04/15/18 08:00 Temperature 97.2 F L Pulse Rate 54 L Respiratory Rate 18 Blood Pressure 168/74 H Pulse Oximetry 98 Intake & Output 04/14/18 04/15/18 04/15/18 18:59 06:59 18:59 Intake Total 3220 / 3220 780 / 780 Balance 3220 / 3220 780 / 780 Weight 76 kg Intake: IV 1920 / 1920 NS Inj 1,000 ML @ 115 mls/hr IV 1920 / 1920 .CONT .Q8H42M [facility] Rx#:[id number] Oral 1300 / 1300 780 / 780 Other: # Voids 6 3 Date of Last Bowel Movement 04/14/18 - Routine Abdominal Exam Present: soft, normoactive bowel sounds Assessment and Plan - Assessment (1) SBO (small bowel obstruction) Code(s): K56.609 - Unspecified intestinal obstruction, unspecified as to partial versus complete obstruction Status: Acute - Plan Ok to DC home FU PRN with Dr. Melgar in office
== END 2018-04-15 12:39 | disposition home or self-care (01) ==
LOC: NEPC 07:03 → NEDA 11:47 → N07 15:24
PROVIDERS: ADMIT Family Medicine; ATTEND Family Medicine